=== PATIENT | male | born 1970 | race Caucasian/White ===

== ENCOUNTER 2016-11-12 07:24 | Day surgery (SDC) | payer OTHER ==
[2016-11-10 14:22] VITALS: BMI 32.1
[~2016-11-12 07:24] MED LIST: LACTATED RINGERS 1,000 ML IV SCH
[2016-11-12 07:46] VITALS: TEMP 98.1
[2016-11-12] MEDS ORDERED: TRIAMCINOLONE ACETONIDE 40 MG/ML 1 ML VIAL ONE (07:50)
[2016-11-12 08:08] LABS: Glucose,Whole Blood 162 mg/dL (75-99)
--- NOTE | 2016-11-12 08:13 | P.PCN ---
Date of Procedure: 11/12/16 Procedure(s) Performed: PREOPERATIVE DIAGNOSIS: 1- Lumbar Degenerative Disc Diseases. POSTOPERATIVE DIAGNOSIS: 1-Lumber Degenerative Disc Diseases. PROCEDURE 1. Lumbar epidural steroid injection under fluoroscopic guidance at the L5-S1 level. ANESTHESIA: Local with 1% lidocaine 3 ml . no Iv sedation EBL: Minimal PROCEDURE INDICATION: The patient with low back pain and radiculitis symptoms unresponsive to conservative treatment. Fluoroscopy was used to optimize visualization of the needle placement and to maximize safety. PROCEDURE DESCRIPTION / TECHNIQUE: The patient was seen and identified in the preoperative area. Risks, benefits , complications including but not limited to infections ,bleeding ,allergic reaction to the medications ,nerve damage and not complete pain releife , and alternatives were discussed with the patient. The patient agreed to proceed with the procedure and signed the consent ,, and vital signs were stable. Patient was taken to the OR and time out was completed. The patient was placed in the prone position on procedure table and a pillow was placed under the abdomen to reduce lumbar lordosis. The lumbosacral area was prepped and draped in the usual sterile fashion.ere closely monitored during the procedure. Vital signs was monitered during the entire procedure. Using anterior-posterior fluoroscopy, the L5-S1 interlaminar space was identified and the skin over this site was marked and then infiltrated with 1% lidocaine subcutaneously. Subsequently, a 20-gauge Tuohy epidural needle was inserted and advanced toward the epidural space using the Loss of resistance technique and guided by AP and lateral fluoroscopy. The correct needle position in the epidural space was verified with fluoroscopy, Omnipaque was not injected because patient had an ALLERGY to IVP dye, after negative aspiration for blood and CSF and in the absence of paresthesias. Again after negative aspiration, a 4 ml mixture containing 80 mg of Kenalog and 2 ml of preservative free Normal Saline, . Needle was withdrawn intact, skin was cleansed, and bandages were applied. COMPLICATIONS: None DISPOSITION / PLANS: The patient was placed in a supine position and transferred to the recovery area in a stable condition for observation. There was no evidence of lower extremity motor or sensory deficit after the procedure. Patient was discharged from the recovery room after meeting discharge criteria. Home discharge instructions were given to the patient by the staff. The patient was reexamined prior to discharge. The patient will schedule a follow up in the clinic in 2-4 weeks.
[2016-11-12 08:18] VITALS: RESP 16
[2016-11-12 08:29] VITALS: PULSE 74
--- NOTE | 2016-11-12 08:33 | FL ---
EXAMINATION TYPE: FL guided pain mgmt statistic DATE OF EXAM: 11/12/2016 8:15 AM FLUOROSCOPY Fluoroscopy time of 2 seconds was used during lumbar epidural injection. 1 image/s document/s the pr jerson.
[2016-11-12 08:34] VITALS: BP 138/89
[2016-11-12 08:43] LABS: Glucose,Whole Blood 137 mg/dL (75-99)
== END 2016-11-12 08:46 | disposition home or self-care (01) ==
LOC: ORPAIN 07:24
PROVIDERS: ATTEND Specialist
DX: M51.16 Intervertebral disc disorders with radiculopathy, lumbar region (principal); Z88.5 Allergy status to narcotic agent; Z88.8 Allergy status to other drugs, medicaments and biological substances; Z91.041 Radiographic dye allergy status
CPT/HCPCS: 62323; J3301

== ENCOUNTER → 2016-12-09 | Outpatient (CLI) | payer OTHER ==
[2016-12-09 14:15] VITALS: BP 138/93; PULSE 99; RESP 18
--- NOTE | 2016-12-09 14:46 | P.PN ---
Progress Note - Text This is a 46-year-old male with lower back pain with radiation to the left lower extremity down to the left foot with numbness and tingling in the left thigh laterally. The patient had a new MRI of the lumbar spine which showed only minor degenerative changes. The patient had previous surgery on the cervical spine with anterior cervical fusion however he does not have significant pain in that area at this point. The patient may need to have an EMG on the lower extremities to try to explain this pain in his left lower extremity, however and since we cannot find the source of his pain coming from his lumbar spine due to lack of significant findings on the last MRI of the lumbar spine I will have to go down his [place] to 3 pills a day as needed for pain and if the EMG results abnormal then we'll going to wean him off [place] gradually. I'll give him today prescription to have EMG done on the lower extremities to rule out meralgia paresthetica or lumbar radiculopathy. We will continue with his Zanaflex and Motrin. He is going to have the third lumbar epidural steroid injection done in a few weeks .We will see him in 2 months.
== END | disposition home or self-care (01) ==
LOC: PNWHC3 13:21
PROVIDERS: ATTEND Anesthesiology
DX: M54.5 Low back pain (principal); Z98.1 Arthrodesis status; Z79.899 Other long term (current) drug therapy
CPT/HCPCS: 99211

== ENCOUNTER 2016-12-31 09:21 | Day surgery (SDC) | payer OTHER ==
[2016-12-31 09:38] VITALS: TEMP 98.1
[2016-12-31 09:42] LABS: Glucose,Whole Blood 120 mg/dL (75-99)
[2016-12-31] MEDS ORDERED: IOHEXOL 180 MG/ML 1 ML ML ONE (10:13)
[2016-12-31] MEDS ORDERED: TRIAMCINOLONE ACETONIDE 40 MG/ML 1 ML VIAL ONE (10:13)
--- NOTE | 2016-12-31 10:42 | FL ---
EXAMINATION TYPE: FL guided pain mgmt statistic DATE OF EXAM: 12/31/2016 10:34 AM HISTORY: Pain 13 sec fl time. lumbar epidural. 2 images scanned.
[2016-12-31 10:44] VITALS: BP 143/94; PULSE 75; RESP 18
--- NOTE | 2016-12-31 10:59 | P.PCN ---
Date of Procedure: 12/31/16 Surgeon: Taurus Zhu Pathology: none sent Condition: stable Disposition: PACU Description of Procedure: PREOPERATIVE DIAGNOSIS: 1-Lumbar radiculitis. POSTOPERATIVE DIAGNOSIS: 1-Lumbar radiculitis. PROCEDURE 1. Lumbar epidural steroid injection under fluoroscopic guidance at the L5-S1 level. ANESTHESIA: Local with 1% lidocaine; IV sedation with Versed/fentanyl. EBL: Minimal PROCEDURE INDICATION: The patient with low back pain and radiculitis symptoms unresponsive to conservative treatment. Fluoroscopy was used to optimize visualization of the needle placement and to maximize safety. No use of blood thinners. PROCEDURE DESCRIPTION / TECHNIQUE: The patient was seen and identified in the preoperative area. Risks, benefits, complications, and alternatives were discussed with the patient, including but not limited to bleeding, infection, nerve damage, allergic reactions to medications, and incomplete pain relief. The patient agreed to proceed with the procedure and signed the consent after all questions were answered. IV was started, and vital signs were stable. Patient was taken to the OR and time out was completed to confirm patient position, procedure, laterality of pain, and allergies. The patient was placed in the prone position on procedure table and a pillow was placed under the abdomen to reduce lumbar lordosis. The lumbosacral area was prepped and draped in the usual sterile fashion. Critical pause was taken. Vital signs were closely monitored during the procedure. Conscious sedation was used during the procedure to decrease patients anxiety. Using anterior-posterior fluoroscopy, the L5-S1 interlaminar space was identified and the skin over this site was marked and then infiltrated with 1% lidocaine subcutaneously. Subsequently, a 20-gauge Tuohy epidural needle was inserted and advanced toward the epidural space using the Loss of resistance technique and guided by AP and lateral fluoroscopy. After CHACORTA and after negative aspiration for blood and CSF and in the absence of paresthesias, a 9 ml mixture containing 80 mg of Kenalog and 5 ml of preservative free Normal Saline, and 2 ml of preservative free lidocaine 1% solution was injected and a washout of epidurogram was seen. Needle was withdrawn intact, skin was cleansed , and bandages were applied. No epidurogram was performed as the patient has an allergy to iodine. COMPLICATIONS: None COMMENTS: DISPOSITION / PLANS: The patient was placed in a supine position and transferred to the recovery area in a stable condition for observation. There was no evidence of lower extremity motor or sensory deficit after the procedure. Patient was discharged from the recovery room after meeting discharge criteria. Home discharge instructions were given to the patient by the staff. The patient was reexamined prior to discharge and there were no issues. The patient will schedule a follow up in the clinic in 2-4 weeks.
== END 2016-12-31 10:59 | disposition home or self-care (01) ==
LOC: ORPAIN 09:21
PROVIDERS: ATTEND Anesthesiology
DX: M54.16 Radiculopathy, lumbar region (principal); Z91.09 Other allergy status, other than to drugs and biological substances
CPT/HCPCS: 62323; J3301; Q9965

== ENCOUNTER → 2017-02-03 | Outpatient (CLI) | payer OTHER ==
[2017-02-03 14:21] VITALS: BP 135/86; PULSE 94; RESP 16; TEMP 98.3
--- NOTE | 2017-02-03 14:59 | P.PN ---
Progress Note - Text Patient returns for followup for chronic back pain with radiation to LLE. Patient recently underwent LESI x 3, which provided one month's relief. Patient continues on Chelsea, Lyrica, Motrin, and Zanaflex medications for pain with good relief. Patient denies adverse drug effects from medications or from procedure. Today, pt denies new-onset weakness, bowel/bladder incontinence, or any other signs or symptoms of cauda equina syndrome. There are no signs of acute intoxication, and no indications of medication diversion or overuse. In addition to above, 13-point review of systems is also negative for chest pain , shortness of breath, changes in vision, changes in hearing, new onset weakness , abdominal pain, diarrhea, extreme fatigue, malaise, fever, skin changes, homicidal or suicidal ideation. Of note, patient is beginning to experience occasional bouts of bowel/bladder urgency but has not had any episodes of incontinence. He denied fever/chills/ changes in bowel habits/severe pain at injection site/weakness after LESI performed. Vital Signs: Reviewed in EMR Gen: WDWN, AAOx3, NAD HEENT: NCAT, EOMI, hearing grossly normal Pulm: resp unlabored Abd: soft, NT, ND Neck: supple, trachea midline ROM in flexion lumbar spine: reduced ROM in extension lumbar spine: reduced Lumbar paravertebral tenderness: + Facet loading: + bilateral, L > R SI joint tenderness: neg bilateral Colin's test: neg bilateral Straight leg raise: neg Lower extremity: decreased strength LLE 4/5, 5/5 RLE Neuro: CN II-XII grossly intact, muscle strength lower extremities PRESERVED Imaging: Reviewed in EMR Assessment: 1. lumbar spinal stenosis 2. lumbar radiculopathy 3. chronic pain syndrome Plan: 1. Explanation: Opioid and psychological risk scores were reviewed. Diagnoses , prognoses, and multiple treatment options including but not limited to physical therapy, interventional therapies, adjuvant medical therapies, narcotic medication therapies, and surgery were discussed with the patient and all questions were answered to the patient's satisfaction. 2. Opioid agreement: Patient has previously signed narcotic agreement, and was orally counseled to not overuse, abuse, divert, or cell medications, and to take them as prescribed by only 1 healthcare provider. The patient was also counseled to store opioid medications in a safe and preferably locked location. Patient was also counseled against driving while using narcotic medications and also to not use alcohol or any illicit or recreational drugs. The patient verbalized understanding that lack of compliance with any of the above and likely result in failure to renew narcotic prescriptions, possible discharge from the clinic, and possible legal ramifications thereafter if indicated. 3. Counseling: The patient was counseled extensively on SMOKING CESSATION, BODY MASS INDEX, EXERCISE. Specifically, the patient was instructed regarding the importance of smoking cessation, obesity, and exercise in the context of both chronic pain and overall health. 4. Procedures: none for now 5. Consultations: Neurology for eval and treat worsening incontinence and EMG lower extremities 6. Investigations: none 7. Medications: Chelsea #120, Lyrica, Motrin and Zanaflex x 2 months 8. Disposition: f/u for re-eval in 8 weeks. Patient again instructed to go to ER if he loses control of bowel/bladder or has fever, chills, worsening weakness , or loss of sensation in his groin area. I am concerned that, despite MRI lumbar spine without cauda equina problems, Antonio's worsening incontinence may be related to his spine and could potentially result in weakness in his lower extremities. I impressed upon him the importance of evaluation and treatment for this even if he is having pain in the meantime. PQRS measures: 1-Patient's medications are documented in the chart. 2-Tobacco use is positive, refused counseling 3-Patient has not had a pneumococcal vaccine. 4-Advanced care planning discussed, patient unable to give. 5-Opioid contract signed with the patient. 6-Pain positive, follow-up visit or procedure scheduled 7-Patient's blood pressure measured and documented, and patient will follow up with the primary care due to hypertension. 8-Patient's weight was measured, and body mass index ABOVE the normal limits, and counseling was done. Patient instructed to follow up with PCP. 9-Patient WAS NOT identified as an unhealthy alcohol user.
== END | disposition home or self-care (01) ==
LOC: PNWHC3 13:56
PROVIDERS: ATTEND Anesthesiology
DX: M48.06 Spinal stenosis, lumbar region (principal); G89.4 Chronic pain syndrome
CPT/HCPCS: 99211

== ENCOUNTER → 2017-03-31 | Outpatient (CLI) | payer OTHER ==
[2017-03-31 13:51] VITALS: BP 136/84; PULSE 80; RESP 16; TEMP 98.6
--- NOTE | 2017-03-31 21:24 | P.PN ---
Subjective This is follow-up visit for this patient with a history of severe and chronic low back pain secondary to lumbar degenerative disc disease, lumbar herniated disc disease y, we did interventional pain management injection, lumbar epidural steroid injections he continued to have severe low back pain, and he had also severe neck pain diagnosed with failed back surgery syndrome and cervical area, and cervical herniated disc disease, and cervical spondylosis, , last visit patient was complaining of increased urgency, and the bowel movement He was referred to a neurologist consultation and also to have EMG, patient reported that he has done EMG for the lower extremity and he is going to have the EMG for the upper extremity next week, I don't have any report. yet , patient denies any weakness in the upper or lower extremity he continued to ambulate without difficulty, and is currently on pain medications 1-Zanaflex 4 mg 3 times a day 2-Lyrica 75 mg 3 times a day 3-Motrin 800 mg 3 times a day. 4-Riviera 10/325 every 6 hours Patient denies any side effects of the medication, denies excessive drowsiness or sleepiness, denies suicidal ideation, and reports that the current pain medication is NOT helping To control the pain and improve activity of daily living . Patient denies any motor or sensory deficit, , patient denies any fever or night sweats and patient here for follow-up visit and medication refill Objective - Vital Signs Vital signs: Vital Signs Temp 98.6 F 03/31/17 13:38 Pulse 80 03/31/17 13:38 Resp 16 03/31/17 13:38 BP 136/84 03/31/17 13:38 Pulse Ox 97 03/31/17 13:38 Intake & Output 03/31/17 03/31/17 04/01/17 06:59 18:59 06:59 Weight 81.647 kg - Exam Physical Examinations : 1-Constitutiona : Cooperative , not in acute distress . 2-HEENT : nech ; supple , no Lymphadenopathy , normal thyroid size . eyes : no ptosis , no icterus, no photophobia . ENT : normal of hearing , normal oropharynx , no Thrush . 3- Respiratory : Chest clear to auscultations Bilaterally , no wheezing , no Rhonchi . 4- Cardiovascular : regular rate and rhythem , S1 , S2 , no S3 , no S4. 5- Gastrointestinal : abdomen soft no tenderness , bowel sounds positive all four quadrents , no organomegally . 6- Genitourinary : Defferred . 7- neurologic : Cranial nerve II to XII intact , no focal neurological deffecit . 8-psychatric : alert , oriented X 3 , appropriate affect , intact judgment and insight . 9-Lymphatic : no Lymphadenopathy . 10- musculoskeltal : cervical spine = motor stregnth in the deltoid and biceps, motor stregnth biceps and the wrist extensors (C6) . motor stregnth in the triceps muscle . deep tendon reflexes normal at the biceps , l normal at Brachioradialis normal at the triceps , positive cervical facet loading test . , exams of the Lumber spine = normal moter stegnth lower extremities ,thigh and legs .5/5 deep tendon reflexes : normal Knee Jerk , normal ankle Jerk . positive lumber facet Loading Test strait leg raising test positive at 30 degree , RT ,LT , Fabere test positive RT and positive LT . Assessment and Plan Plan: Assessment and plan = - Chronic low back pain secondary to lumbar herniated disc disease , lumbar degenerative disc disease , -Chronic neck pain secondary to cervical herniated disc disease , cervical spondylosis with cervical facet arthropathy without myelopathy . He'll back surgery syndrome and cervical area -chronic and current use of high-risk medication (Opioids). -Patient denies any side effect of the medication, and the current medication helped the patient to control the pain and improve activity of daily living, the visual The patient was counseled about risk of opioid use, psychological risk associated with opioids discussed with the patient, body mass index and exercise. Patient signed the narcotic agreement , and was orally counseled not to overuse , abuse , divert, or sell medications ,and take them as prescribed only , and the patient was counseled against driving and while you are using the narcotic medication also not to use alcohol or any illicit drugs and the patient verbalized understanding that lack of compliance and could result in failure to renew narcotics prescriptions and possible discharge from the clinic - diagnoses, prognosis, and treatment options including but not limited to physical therapy, surgical interventions, interventional therapies and medication management including narcotics and adjuvant medication were discussed with the patient and all questions answered to the patient's satisfaction. -medication refile =1-Zanaflex 4 mg 3 times a day dispense 90 with 1 refills 2- Lyrica 75 mg dispense 90 with 1 refills 3-03 800 mg 3 times a day dispense 90 with 1 refill 4-Riviera 10/325 every 6 hours dispensed 120 with one refill -procedure= patient already referred to have EMG for theupper and lower extremity we don't have report. -Show was referred for neurology consultation also Time with Patient: Less than 30
== END | disposition home or self-care (01) ==
LOC: PNWHC3 13:15
PROVIDERS: ATTEND Specialist
DX: M51.26 Other intervertebral disc displacement, lumbar region (principal); M51.36 Other intervertebral disc degeneration, lumbar region; M47.812 Spondylosis without myelopathy or radiculopathy, cervical region; M46.92 Unspecified inflammatory spondylopathy, cervical region; G89.29 Other chronic pain; Z79.891 Long term (current) use of opiate analgesic; Z79.899 Other long term (current) drug therapy; Z79.1 Long term (current) use of non-steroidal anti-inflammatories (NSAID)
CPT/HCPCS: 99211

== ENCOUNTER → 2017-05-26 | Outpatient (CLI) | payer OTHER ==
[2017-05-26 13:18] VITALS: BP 123/85; PULSE 97; RESP 16; TEMP 98
--- NOTE | 2017-05-26 14:06 | P.PN ---
Progress Note - Text Patient returns for followup for chronic back pain with radiation to LLE > RLE with pain and numbness in LUE also. Patient recently underwent EMG; results below. Patient continues on Western, Lyrica, Motrin, and Zanaflex medications for pain with good relief. Patient denies adverse drug effects from medications or from procedure. Today, pt denies new-onset weakness, bowel/ bladder incontinence, or any other signs or symptoms of cauda equina syndrome. There are no signs of acute intoxication, and no indications of medication diversion or overuse. In addition to above, 13-point review of systems is also negative for chest pain , shortness of breath, changes in vision, changes in hearing, new onset weakness , abdominal pain, diarrhea, extreme fatigue, malaise, fever, skin changes, homicidal or suicidal ideation. Of note, patient is beginning to experience occasional bouts of bowel/bladder urgency but has not had any episodes of incontinence. He denied fever/chills/ changes in bowel habits/severe pain at injection site/weakness after LESI performed. Vital Signs: Reviewed in EMR Gen: WDWN, AAOx3, NAD HEENT: NCAT, EOMI, hearing grossly normal Pulm: resp unlabored Abd: soft, NT, ND Neck: supple, trachea midline ROM in flexion lumbar spine: reduced ROM in extension lumbar spine: reduced Lumbar paravertebral tenderness: + Facet loading: + bilateral, L > R Straight leg raise: neg Neuro: CN II-XII grossly intact EMG: EMG of the lower extremities performed by Dr. 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 EMG of the upper extremities demonstrates electric diagnostic evidence of mild bilateral median nerve compressive mononeuropathy at the wrist i.e. carpal tunnel syndrome. There is also electrodiagnostic evidence of bilateral chronic C6-C7 neurogenic changes. Assessment: 1. lumbar spinal stenosis 2. lumbar radiculopathy 3. chronic pain syndrome 4. cervical PLPS Plan: 1. Explanation: Opioid and psychological risk scores were reviewed. Diagnoses , prognoses, and multiple treatment options including but not limited to physical therapy, interventional therapies, adjuvant medical therapies, narcotic medication therapies, and surgery were discussed with the patient and all questions were answered to the patient's satisfaction. 2. Opioid agreement: Patient has previously signed narcotic agreement, and was orally counseled to not overuse, abuse, divert, or cell medications, and to take them as prescribed by only 1 healthcare provider. The patient was also counseled to store opioid medications in a safe and preferably locked location. Patient was also counseled against driving while using narcotic medications and also to not use alcohol or any illicit or recreational drugs. The patient verbalized understanding that lack of compliance with any of the above and likely result in failure to renew narcotic prescriptions, possible discharge from the clinic, and possible legal ramifications thereafter if indicated. 3. Counseling: The patient was counseled extensively on SMOKING CESSATION, BODY MASS INDEX, EXERCISE. Specifically, the patient was instructed regarding the importance of smoking cessation, obesity, and exercise in the context of both chronic pain and overall health. 4. Procedures: none for now 5. Consultations: none 6. Investigations: none 7. Medications: Western #120, Lyrica, Motrin and Zanaflex x 2 months 8. Disposition: f/u for re-eval in 8 weeks. Patient states incontinence has improved but he is having new and worsening symptoms of pain/numbness/tingling in his upper extremities. PQRS measures: 1-Patient's medications are documented in the chart. 2-Tobacco use is positive, refused counseling 3-Patient has not had a pneumococcal vaccine. 4-Advanced care planning discussed, patient unable to give. 5-Opioid contract signed with the patient. 6-Pain positive, follow-up visit or procedure scheduled 7-Patient's blood pressure measured and documented, and patient will follow up with the primary care due to hypertension. 8-Patient's weight was measured, and body mass index ABOVE the normal limits, and counseling was done. Patient instructed to follow up with PCP. 9-Patient WAS NOT identified as an unhealthy alcohol user.
== END ==
LOC: PNWHC3 13:05
PROVIDERS: ATTEND Anesthesiology
DX: M48.06 Spinal stenosis, lumbar region (principal); Z79.891 Long term (current) use of opiate analgesic; Z79.899 Other long term (current) drug therapy
CPT/HCPCS: 99211

== ENCOUNTER → 2017-06-24 | Outpatient (CLI) | payer OTHER ==
--- NOTE | 2017-06-24 14:33 | NM ---
EXAMINATION TYPE: NM bone 3 phase DATE OF EXAM: 06/24/2017 COMPARISON: NONE HISTORY: M79.604 kimmy ankle piain post trauma Triple phase bone scintigraphy was performed following the injection of25.8 mCi Tc 99m MDP. Immediat e images and 3 hours post injection images acquired. FINDINGS: On all 3 phases of the study there is increased radiotracer accumulation in the region of the right c uboid. I cannot exclude traumatic injury to this structure. Radiographic correlation recommended. Oth erwise there is degenerative uptake about the ankles and mid feet. IMPRESSION: Correlate for possible right-sided cuboid fracture. Radiographic correlation advised.
== END | disposition home or self-care (01) ==
LOC: RADNMMAIN 09:56
PROVIDERS: ATTEND Internal Medicine Infectious Disease
DX: M25.572 Pain in left ankle and joints of left foot (principal); M25.571 Pain in right ankle and joints of right foot; G89.29 Other chronic pain
CPT/HCPCS: 78315; A9503

== ENCOUNTER → 2017-07-21 | Outpatient (CLI) | payer OTHER ==
[2017-07-21 13:33] VITALS: BP 136/92; PULSE 76; RESP 18; TEMP 97.6
--- NOTE | 2017-07-21 13:52 | P.PN ---
Progress Note - Text Patient returns for followup for chronic back pain with radiation to LLE > RLE with pain and numbness in bilateral upper extremities. Patient continues on Pinola, Lyrica, Motrin, and Zanaflex medications for pain with good relief. Patient denies adverse drug effects from medications or from procedure. Today, pt denies new-onset weakness, bowel/bladder incontinence, or any other signs or symptoms of cauda equina syndrome. There are no signs of acute intoxication, and no indications of medication diversion or overuse. In addition to above, 13-point review of systems is also negative for chest pain , shortness of breath, changes in vision, changes in hearing, new onset weakness , abdominal pain, diarrhea, extreme fatigue, malaise, fever, skin changes, homicidal or suicidal ideation. Of note, patient is beginning to experience occasional bouts of bowel/bladder urgency but has not had any recent episodes of incontinence. He denied fever/ chills/changes in bowel habits/severe pain at injection site/weakness after LESI performed. Vital Signs: Reviewed in EMR Gen: WDWN, AAOx3, NAD HEENT: NCAT, EOMI, hearing grossly normal Pulm: resp unlabored Abd: soft, NT, ND Neck: supple, trachea midline; + cervical facet tenderness bilateral, + Spurling's LUE Neuro: CN II-XII grossly intact Assessment: 1. lumbar spinal stenosis 2. lumbar radiculopathy 3. chronic pain syndrome 4. cervical PLPS 5. cervical radic (EMG-proven) Plan: 1. Explanation: Opioid and psychological risk scores were reviewed. Diagnoses , prognoses, and multiple treatment options including but not limited to physical therapy, interventional therapies, adjuvant medical therapies, narcotic medication therapies, and surgery were discussed with the patient and all questions were answered to the patient's satisfaction. 2. Opioid agreement: Patient has previously signed narcotic agreement, and was orally counseled to not overuse, abuse, divert, or cell medications, and to take them as prescribed by only 1 healthcare provider. The patient was also counseled to store opioid medications in a safe and preferably locked location. Patient was also counseled against driving while using narcotic medications and also to not use alcohol or any illicit or recreational drugs. The patient verbalized understanding that lack of compliance with any of the above and likely result in failure to renew narcotic prescriptions, possible discharge from the clinic, and possible legal ramifications thereafter if indicated. 3. Counseling: The patient was counseled extensively on SMOKING CESSATION, BODY MASS INDEX, EXERCISE. Specifically, the patient was instructed regarding the importance of smoking cessation, obesity, and exercise in the context of both chronic pain and overall health. 4. Procedures: none for now 5. Consultations: none 6. Investigations: UDS today 7. Medications: Pinola 10/325 #120 with one refill, Lyrica, Motrin and Zanaflex with two refills 8. Disposition: f/u for re-eval in 8 weeks. Patient has already seen Dr. Schneider who has told him he is not a candidate for neck surgery. He states that incontinence has improved but he is having new and worsening symptoms of pain/ numbness/tingling in his upper extremities. PQRS measures: 1-Patient's medications are documented in the chart. 2-Tobacco use is positive, refused counseling 3-Patient has not had a pneumococcal vaccine. 4-Advanced care planning discussed, patient unable to give. 5-Opioid contract signed with the patient. 6-Pain positive, follow-up visit or procedure scheduled 7-Patient's blood pressure measured and documented, and patient will follow up with the primary care due to hypertension. 8-Patient's weight was measured, and body mass index ABOVE the normal limits, and counseling was done. Patient instructed to follow up with PCP. 9-Patient WAS NOT identified as an unhealthy alcohol user.
== END | disposition home or self-care (01) ==
LOC: PNWHC3 13:16
PROVIDERS: ATTEND Anesthesiology
DX: M48.06 Spinal stenosis, lumbar region (principal); M54.16 Radiculopathy, lumbar region; G89.4 Chronic pain syndrome; G97.1 Other reaction to spinal and lumbar puncture
CPT/HCPCS: 80307; G0480 ×3; G0463; 80346; 80356; 80364; 99211

== ENCOUNTER → 2017-09-15 | Outpatient (CLI) | payer OTHER ==
[2017-09-15 12:35] VITALS: BP 153/100; PULSE 104; RESP 16
--- NOTE | 2017-09-15 12:59 | P.PN ---
Subjective Progress Note Date: 09/15/17 follow visit for this 46 years old male with a chronic history of severe neck pain, radiation to the upper extremity, and severe low back pain with radiation to the left lower extremity, being diagnosed with cervical radiculopathy and lumbar radiculopathy and cervical spondylosis, patient had interventional pain management procedures in the past and he had no benefit from it, and he sold [email or web address] and Dr. Schneider , and he did not recommend any surgical interventions, the patient continued to have severe pain which is increased with any activity, he denies any focal neurologic deficits he denies any fever or night sweats and is no change in bowel movement or urination, he denies any side effects from the medication, Objective - Vital Signs Vital signs: Vital Signs Temp Pulse 104 H 09/15/17 12:24 Resp 16 09/15/17 12:24 BP 153/100 09/15/17 12:24 Pulse Ox 98 09/15/17 12:24 Intake & Output 09/14/17 09/15/17 09/15/17 18:59 06:59 18:59 Weight 87.543 kg - Exam Physical Examinations : 1-Constitutiona : Cooperative , not in acute distress . 2-HEENT : nech ; supple , no Lymphadenopathy , normal thyroid size . eyes : no ptosis , no icterus, no photophobia . ENT : normal of hearing , normal oropharynx , no Thrush . 3- Respiratory : Chest clear to auscultations Bilaterally , no wheezing , no Rhonchi . 4- Cardiovascular : regular rate and rhythem , S1 , S2 , no S3 , no S4. 5- Gastrointestinal : abdomen soft no tenderness , bowel sounds positive all four quadrents , no organomegally . 6- Genitourinary : Defferred . 7- neurologic : Cranial nerve II to XII intact , no focal neurological deffecit . 8-psychatric : alert , oriented X 3 , appropriate affect , intact judgment and insight . 9-Lymphatic : no Lymphadenopathy . 10- musculoskeltal : cervical spine = motor stregnth in the deltoid and biceps, motor stregnth biceps and the wrist extensors (C6) . motor stregnth in the triceps muscle . deep tendon reflexes normal at the biceps , l normal at Brachioradialis normal at the triceps positive cervical facet loading test . , Lumber spine = normal moter stegnth lower extremities ,thigh and legs .5/5 deep tendon reflexes : normal Knee Jerk , normal ankle Jerk . positive lumber facet Loading Test strait leg raising test positive at 60 degree , RT ,LT , Fabere test positive RT and positive LT . Assessment and Plan Plan: Assessment and plan= Lumbar radiculopathy , lumbar spondylosis with lumbar facet arthropathy , Cervical radiculopathy, cervical spondylosis chronic and current use of high-risk medication (opioids) Patient denies any side effects of the current pain medication and the current treatment/medication ML and the patient to do activity of daily living , Diagnoses, prognosis, treatment options, including but not limited to physical therapy, medication management, interventional therapies, and surgery, were discussed with the patient All the questions answered Patient signed the narcotic agreement, and he was orally counseled, not to overuse, not to abuse, not to Divert , not tp sell pain medication, and to take it as prescribed only, Patient was counseled not to drive or operate heavy equipment while using narcotic medication, and advised not to use alcohol or any Illicit drugs while using the narcotis, the patient's verbalized understanding that lack of compliance with any of the above instructions and will likely to cause discharge from the pain service, not to renew his narcotic prescriptions Medication managements= patient will be given prescription refills for 1-Le[place] 10/325 every 6 hours dispense 120 with one refill 2-lyrica 75 mg 3 times a day dispense 90 with 1 refile 3-Zanaflex 4 mg 3 times a day dispense 90 with 1 refill. 4-Motrin 800 mg 3 times a day dispense 90 with 1 refill Interventional pain management= none Refferal =none Follow-up= 2 months UDS reviewed , and it was appropriate ,
== END ==
LOC: PNWHC3 12:14
PROVIDERS: ATTEND Specialist
DX: M47.22 Other spondylosis with radiculopathy, cervical region (principal); M47.26 Other spondylosis with radiculopathy, lumbar region; M46.86 Other specified inflammatory spondylopathies, lumbar region; Z79.899 Other long term (current) drug therapy; Z79.891 Long term (current) use of opiate analgesic
CPT/HCPCS: 99211

== ENCOUNTER → 2017-11-10 | Outpatient (CLI) | payer OTHER ==
[2017-11-10 12:30] VITALS: BP 139/93; PULSE 86; RESP 16
--- NOTE | 2017-11-10 12:48 | P.PN ---
Subjective Progress Note Date: 11/10/17 This is follow-up visit for this patient with a history of severe and chronic low back pain secondary to lumbar radiculopathy ,and , lumbar spondylosis with facet arthropathy, he had severe neck pain ,he is diagnosed with cervical radiculopathy and cervical spondylosis we did interventional pain management injection,, and all the interventional pain management failed to control his neck pain or low back pain , patient currently on 1-[place] 10/325 every 6 hours 2-Motrin 800 mg every 8 hours 3-Zanaflex 4 mg every 8 hours. 4-Lyrica 75 mg 3 times a day And he uses Klonopin 0.5 mg daily and Lexapro 20 mg daily and Cymbalta 60 mg daily for anxiety and depression, a prescription refill from his primary care Patient denies any side effects of the medication, denies excessive drowsiness or sleepiness, denies suicidal ideation, and reports that the current pain medication is helping To control the pain and improve activity of daily living . Patient denies any motor or sensory deficit, denies change in bowel movement or urination, patient denies any fever or night sweats and patient here for follow-up visit and medication refill , patient reported that he is using nicotine patch ,to stop Smoking , and he is going to school for computer science Objective - Exam Physical Examinations : 1-Constitutiona : Cooperative , not in acute distress . 2-HEENT : nech ; supple , no Lymphadenopathy , normal thyroid size . eyes : no ptosis , no icterus, no photophobia . ENT : normal of hearing , normal oropharynx , no Thrush . 3- Respiratory : Chest clear to auscultations Bilaterally , no wheezing , no Rhonchi . 4- Cardiovascular : regular rate and rhythem , S1 , S2 , no S3 , no S4. 5- Gastrointestinal : abdomen soft no tenderness , bowel sounds positive all four quadrents , no organomegally . 6- Genitourinary : Defferred . 7- neurologic : Cranial nerve II to XII intact , no focal neurological deffecit . 8-psychatric : alert , oriented X 3 , appropriate affect , intact judgment and insight . 9-Lymphatic : no Lymphadenopathy . 10- musculoskeltal : cervical spine = motor stregnth in the deltoid and biceps, motor stregnth biceps and the wrist extensors (C6) . motor stregnth in the triceps muscle . deep tendon reflexes normal at the biceps , normal at Brachioradialis , normal at the Triceps positive cervical facet loading test . , Lumber spine = normal moter stegnth lower extremities ,thigh and legs .03/05 Assessment and Plan Plan: Assessment and plan= chronic low back pain secondary to cervical radiculopathy , cervical spondylosis with lumbar facet arthropathy , chronic and current use of high-risk medication (opioids) Patient denies any side effects of the current pain medication and the current treatment/medication ML and the patient to do activity of daily living , Diagnoses, prognosis, treatment options, including but not limited to physical therapy, medication management, interventional therapies, and surgery, were discussed with the patient All the questions answered Patient signed the narcotic agreement, and he was orally counseled, not to overuse, not to abuse, not to Divert , not tp sell pain medication, and to take it as prescribed only, Patient was counseled not to drive or operate heavy equipment while using narcotic medication, and advised not to use alcohol or any Illicit drugs while using the narcotis, the patient's verbalized understanding that lack of compliance with any of the above instructions and will likely to cause discharge from the pain service, not to renew his narcotic prescriptions Medication managements= patient will be given prescription refills for 1-Lyrica 75 mg 3 times a day dispense 90 with 1 refill 2-Zanaflex 4 mg 3 times a day dispense 90 with 1 refill 3-[place] 10/325 every 6 hours dispense 120 with one refill. 4-Motrin 800 mg every 8 hours dispense 90 with 1 refill Interventional pain management=none Refferal =none Follow-up= 2 months , Time with Patient: Greater than 30
== END | disposition home or self-care (01) ==
LOC: PNWHC3 12:13
PROVIDERS: ATTEND Specialist
DX: G89.29 Other chronic pain (principal); M54.5 Low back pain; M47.22 Other spondylosis with radiculopathy, cervical region; M46.86 Other specified inflammatory spondylopathies, lumbar region; Z79.1 Long term (current) use of non-steroidal anti-inflammatories (NSAID); Z79.891 Long term (current) use of opiate analgesic; Z79.899 Other long term (current) drug therapy
CPT/HCPCS: 99211

== ENCOUNTER → 2017-11-23 | Outpatient (CLI) | payer OTHER ==
--- NOTE | 2017-11-24 07:13 | XR ---
EXAMINATION TYPE: XR abdomen 2V DATE OF EXAM: 11/23/2017 COMPARISON: NONE HISTORY: Left lower quadrant pain TECHNIQUE: One view abdominal series FINDINGS: The osseous structures are intact. The bowel gas pattern is nonspecific. No definite suspicious calc ifications hypertrophic change of the acetabulum. IMPRESSION: 1. Nonspecific abdomen.
== END | disposition home or self-care (01) ==
LOC: RADXRYALE 16:11
PROVIDERS: ATTEND Physician Assistant Medical
DX: K42.9 Umbilical hernia without obstruction or gangrene (principal); R10.32 Left lower quadrant pain
CPT/HCPCS: 74019

== ENCOUNTER → 2017-12-02 | Outpatient (CLI) | payer OTHER ==
--- NOTE | 2017-12-02 09:33 | US ---
EXAMINATION TYPE: US carotid duplex BILAT DATE OF EXAM: 12/02/2017 COMPARISON: NONE CLINICAL HISTORY: H53.2 Diplopia. Headaches, swelling of optic nerve, no h/o stroke, MRI to follow fo r possible brain tumor EXAM MEASUREMENTS: RIGHT: Peak Systolic Velocity (PSV) cm/sec ----- Right CCA: 94.4 ----- Right ICA: 89.7 ----- Right ECA: 86.4 ICA/CCA ratio: 1.0 RIGHT: End Diastole cm/sec ----- Right CCA: 27.5 ----- Right ICA: 43.5 ----- Right ECA: 12.8 LEFT: Peak Systolic Velocity (PSV) cm/sec ----- Left CCA: 116.9 ----- Left ICA: 90.5 ----- Left ECA: 103.6 ICA/CCA ratio: 0.8 LEFT: End Diastole cm/sec ----- Left CCA: 25.0 ----- Left ICA: 26.7 ----- Left ECA: 20.1 VERTEBRALS (direction of flow): Right Vertebral: Antegrade Left Vertebral: Antegrade Rhythm: Normal Mostly homogenous plaque throughout with very mild heterogeneous plaque noted at bilateral bulbs, no significant stenosis seen. IMPRESSION: Mild calcific atheromatous plaquing within the carotid bulbs. No hemodynamically signifi cant stenosis within either carotid arterial system.
--- NOTE | 2017-12-02 09:36 | MR ---
EXAMINATION TYPE: MR angio head wo con DATE OF EXAM: 12/02/2017 COMPARISON: NONE HISTORY: Diplopia, butterfield TECHNIQUE: Time of flight images focusing on the [place] of [place] were performed without contrast.. 2-D and 3-D postprocessing imaging is performed. FINDINGS: There is dominant left vertebral artery. Vertebral arteries are patent to the basilar junct ion. There is no significant focal stenosis or aneurysmal change in the posterior circulation. There are patent posterior communicating arteries identified bilaterally though the left side is noted smal ler in caliber. Images of the anterior circulation show no significant focal stenosis. Patent anterior communicating artery is not definitively visualized. IMPRESSION: No aneurysmal change at the level of the [place].
--- NOTE | 2017-12-02 10:24 | MR ---
EXAMINATION TYPE: MR brain wo con DATE OF EXAM: 12/02/2017 COMPARISON: NONE HISTORY: Diplopia, butterfield CONTRAST: Performed utilizing 0 mL intravenous Gadavist gadolinium contrast. TECHNIQUE: Multiplanar, multiecho imaging on a 3.0 Kamila magnet is performed through the brain. Stud y is performed within 24 hours of arrival to the hospital. The craniovertebral junction is normal. The pituitary is normal. Diffusion-weighted imaging is performed. No abnormal hyperintensity is present to suggest an acute i ntracranial infarct or acute ischemic change. No suspicious signal changes are evident within the brain. Orbits as visualized are normal. Paranasal sinuses mastoid air cells are unremarkable. Ventricles and sulci are mildly prominent for the patient age. IMPRESSIONS: 1. Mild atrophy
== END | disposition home or self-care (01) ==
LOC: RADUSMAIN 08:01
PROVIDERS: ATTEND Psychiatry & Neurology Neurology
DX: I65.23 Occlusion and stenosis of bilateral carotid arteries (principal); H53.2 Diplopia
CPT/HCPCS: 70544; 70551; 93880

== ENCOUNTER → 2018-01-05 | Outpatient (CLI) | payer OTHER ==
[2018-01-05 12:48] VITALS: BP 170/108; PULSE 79
--- NOTE | 2018-01-05 13:16 | P.PN ---
Subjective Progress Note Date: 01/05/18 This is follow-up visit for this patient with a history of severe and chronic low back pain secondary to lumbar degenerative disc diseases , chronic neck pain and diagnosed with cervical spondylosis with facet arthropathy, we have done lumbar epidural steroid injection which helped his low back pain, and we have done cervical diagnostic medial branch block and he has complications he is not willing to repeat the procedure Patients currently on [place] 10/325 every 6 hours, Lyrica 75 mg 3 times a day, Motrin 800 mg 3 times a day, Zanaflex 4 mg 3 times a day Patient denies any side effects of the medication, denies excessive drowsiness or sleepiness, denies suicidal ideation, and reports that the current pain medication is helping To control the pain and improve activity of daily living Patient denies any motor or sensory deficit , patient denies any fever or night sweats, denies any change in the bowel movements or urination Physical Examinations : 1-Constitutiona : Cooperative , not in acute distress . 2-HEENT : nech ; supple , no Lymphadenopathy , no Thyromegaly , normal thyroid size . eyes : no ptosis , no icterus, no photophobia . ENT : normal of hearing , normal oropharynx , no Thrush . 3- Respiratory : Chest clear to auscultations Bilaterally , no wheezing , no Rhonchi . 4- Cardiovascular : regular rate and rhythem , S1 , S2 , no S3 , no S4. 5- Gastrointestinal : abdomen soft no tenderness , bowel sounds positive all four quadrents , no organomegally . 6- Genitourinary : Defferred . 7- neurologic : Cranial nerve II to XII intact , no focal neurological deffecit . 8-psychatric : alert , oriented X 3 , appropriate affect , intact judgment and insight . 9-Lymphatic : no Lymphadenopathy . 10- musculoskeltal : exams of the cervical spine = motor strength normal bilateral upper extremities facet loading test cervical area positive. exams of the Lumber spine = motor strength lower extremities ,thigh and legs .5/5 deep tendon reflexes : normal Knee Jerk , normal ankle Jerk . lumber facet Loading Test positive strait leg raising test positive at 30 degree , RT ,LT , Fabere test positive RT and positive LT . Range of motion: Range of motion in flexion of the lumbar spine 30 degrees Range of motion range of motion of extension of the lumbar spine 10 Assessment and plan = Chronic low back pain secondary to lumbar degenerative disc disease , Chronic neck pain secondary to cervical spondylosis, failed back surgery syndrome cervical area chronic and current use of high-risk medication (Opioids). The patient was counseled about risk of opioid use, psychological risk associated with opioids and was orally counseled to not overuse , divert,or sell dictations to take medications as prescribed only , and to restore medication in safe location , and the patient counseled against driving while using narcotic medications, and also not to use alcohol or any illicit recreational drugs, the patient's verbalized understanding that the lack of compliance will result in failure to renew narcotic prescription and possible discharge from the clinic - diagnoses, prognosis, and treatment options including but not limited to physical therapy, surgical interventions, interventional therapies , and medication management including narcotics and adjuvant medication were discussed with the patient and all the questions answered E description refill for [place] 10/325 every 6 hours dispense 120 with one refill, Lyrica 75 mg 3 times a day dispense 90 with 1 refill, Motrin 800 mg 3 times a day dispense 90 with 1 refill Zanaflex 4 mg 3 times a day dispense 90 with 1 refill, he'll Elma in the pain clinic in 2 months Objective - Vital Signs Vital signs: Vital Signs Temp Pulse 79 01/05/18 12:40 Resp BP 170/108 01/05/18 12:40 Pulse Ox 98 01/05/18 12:40 Intake & Output 01/04/18 01/05/18 01/05/18 18:59 06:59 18:59 Weight 90.718 kg
== END | disposition home or self-care (01) ==
LOC: PNWHC3 12:13
PROVIDERS: ATTEND Specialist
DX: G89.29 Other chronic pain (principal); M51.36 Other intervertebral disc degeneration, lumbar region; M47.812 Spondylosis without myelopathy or radiculopathy, cervical region; M96.1 Postlaminectomy syndrome, not elsewhere classified; Z79.891 Long term (current) use of opiate analgesic; Z79.899 Other long term (current) drug therapy; Z79.1 Long term (current) use of non-steroidal anti-inflammatories (NSAID)
CPT/HCPCS: 99211

== ENCOUNTER → 2018-03-02 | Outpatient (CLI) | payer OTHER ==
[2018-03-02 13:35] VITALS: BP 118/78; PULSE 96; RESP 16
--- NOTE | 2018-03-02 14:08 | P.PAINPG ---
Subjective Progress Note Date: 03/02/18 Principal diagnosis: Cervical radiculopathy This is a very pleasant 47-year-old gentleman who has multiple pain problems stemming from a fall off of a roof approximately 25 years ago. He has had other accidents since then. He has chronic pain in his cervical spine as well as down his arms in his back and down his legs. He has numbness down his left leg. 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 Objective - Vital Signs Vital signs: Vital Signs Temp Pulse 96 03/02/18 13:24 Resp 16 03/02/18 13:24 BP 118/78 03/02/18 13:24 Pulse Ox 99 03/02/18 13:24 Intake & Output 03/01/18 03/02/18 03/02/18 18:59 06:59 18:59 Weight 86.183 kg - Exam Gen: WDWN, AAOx3, NAD HEENT: NCAT, EOMI, hearing grossly normal Pulm: resp unlabored Abd: soft, NT, ND Neck: supple, trachea midline ROM in flexion cervical spine: Decreased ROM in extension cervical spine: Decreased Cervical paravertebral tenderness: Positive Cervical Facet tenderness: Spurling's: Negative ROM in flexion lumbar spine: Decreased ROM in extension lumbar spine: Decreased Lumbar paravertebral tenderness: Positive Facet loading: Positive bilaterally SI joint tenderness: Negative bilaterally Colin's test: Negative Straight leg raise: Negative Neuro: CN II-XII grossly intact, muscle strength lower extremities PRESERVED. Assessment and Plan Assessment: Refill hydrocodone- maps checked with no unexpected activity Refill Lyrica refill ibuprofen Refill Zanaflex Follow-up in 2 months Time with Patient: Less than 30 PQRS Measure Charge Sheet PQRS Narrative: Smoking Status Smoker, status unknown Do You Want the Pneumonia No Vaccine AT THIS TIME? Narcotic Agreement Date Signed 03/04/16 Blood Pressure 118/78 Pain Intensity [Generalized] 7 Scale Used Numeric (1 - 10) Hx Alcohol Use (MH) No Home Medications: Ambulatory Orders Atorvastatin [Lipitor] 20 mg PO HS 04/16/14 Ranitidine HCl [Zantac] 150 mg PO DAILY PRN 04/16/14 metFORMIN HCL [Glucophage] 1,000 mg PO BID 04/16/14 Levothyroxine Sodium [Synthroid] 75 mcg PO DAILY 05/15/14 Ergocalciferol [Vitamin D2 (DRISDOL)] 50,000 unit PO Q30D 07/09/14 Albuterol Sulfate [Proair Hfa] 2 puff INHALATION BID PRN 12/31/14 DULoxetine HCL [Cymbalta] 60 mg PO DAILY 12/31/14 Tamsulosin HCl [Flomax] 0.4 mg PO HS 12/31/14 clonazePAM [KlonoPIN] 0.5 mg PO DAILY PRN 12/31/14 rOPINIRole HCL [Requip] 1 mg PO HS 06/05/15 Escitalopram [Lexapro] 20 mg PO DAILY 07/17/15 Metaproterenol Sulfate 25 mg PO DAILY 09/05/15 Lurasidone [Latuda] 60 mg PO HS 11/13/15 Cetirizine HCl [Zyrtec] 5 mg PO DAILY PRN 09/18/16 Nicotine 21Mg/24Hr Patch [Habitrol] 1 patch TOPICAL DIRECTED 11/10/17 tiZANidine [Zanaflex] 4 mg PO TID PRN #90 tab 11/10/17 Hydrocodone/Acetaminophen [[place] 10-325] 10 mg PO Q6HR PRN #120 tablet 01/05/18 Losartan [Cozaar] 25 mg PO DAILY 01/05/18 HYDROcodone/APAP 10-325MG [[place] 10-325] 1 tab PO Q6H PRN #120 tab 03/02/18 HYDROcodone/APAP 10-325MG [[place] 10-325] 1 tab PO Q6H PRN #120 tab 03/02/18 Ibuprofen [Motrin] 800 mg PO Q8HR #90 tab 03/02/18 Pregabalin [Lyrica] 75 mg PO TID #90 cap 03/02/18 Controlled Substance Measures - Controlled Substance Measures Is patient prescribed a controlled substance at discharge?: Yes If prescribed controlled substance>3 days was MAPS reviewed?: Yes When asked, does pt state using other controlled substances?: No
== END | disposition home or self-care (01) ==
LOC: PNWHC3 13:18
PROVIDERS: ATTEND Pain Medicine Pain Medicine
DX: G89.29 Other chronic pain (principal); M54.2 Cervicalgia; M54.16 Radiculopathy, lumbar region; Z91.81 History of falling; Z79.891 Long term (current) use of opiate analgesic; Z79.1 Long term (current) use of non-steroidal anti-inflammatories (NSAID); Z79.899 Other long term (current) drug therapy
CPT/HCPCS: 99211

== ENCOUNTER → 2018-04-27 | Outpatient (CLI) | payer OTHER ==
[2018-04-27 14:15] VITALS: BP 129/79; PULSE 98; RESP 16
--- NOTE | 2018-04-27 15:31 | P.PAINPG ---
Subjective Progress Note Date: 04/27/18 This is follow-up visit for this patient with a history of severe and chronic neck pain secondary to cervical spondylosis , lumbar spondylosis with facet arthropathy, We have done interventional pain procedures cervical medial branch block , and patient had complications during the procedure was not completed, Patients currently on [place] 10/325 every 6 hours , Lyrica 75 mg 3 times a day, Zanaflex 4 mg 3 times a day, Motrin 800 mg 3 times a day Patient denies any side effects of the medication, denies excessive drowsiness or sleepiness, denies suicidal ideation, and reports that the current pain medication is helping to control the pain and improve activity of daily living Patient denies any motor or sensory deficit , patient denies any fever or night sweats, denies any change in the bowel movements or urination Current patient complaining of numbness and tingling sensation in the digits from the left elbow towards the left wrist area Physical Examinations : 1-Constitutional : Cooperative , not in acute distress . 2-HEENT : nech ; supple , no Lymphadenopathy , no Thyromegaly , normal thyroid size . eyes : no ptosis , no icterus, no photophobia . ENT : normal of hearing , normal oropharynx , no Thrush . 3- Respiratory : Chest clear to auscultations Bilaterally , no wheezing , no Rhonchi . 4- Cardiovascular : regular rate and rhythem , S1 , S2 , no S3 , no S4. 5- Gastrointestinal : abdomen soft no tenderness , bowel sounds positive all four quadrents , no organomegally . 6- Genitourinary : Defferred . 7- neurologic: Cranial nerve II to XII intact , no focal neurological deffecit . 8- Psychatric: alert , oriented X 3 , appropriate affect , intact judgment and insight . 9- Lymphatic : no Lymphadenopathy . 10- Musculoskeltal : exams of the cervical spine = motor strength normal bilateral upper extremities facet loading test cervical area positive. Tenderness over the left elbow area and the medial aspect exams of the Lumber spine =motor strength lower extremities ,thigh and legs .5/5 . lumber facet Loading Test positive Assessment and plan = Chronic low back pain secondary to lumbar degenerative disc disease , lumbar spondylosis with facet arthropathy without myelopathy chronic and current use of high-risk medication (Opioids). The patient was counseled about risk of opioid use, psychological risk associated with opioids and was orally counseled to not overuse , divert,or sell dictations to take medications as prescribed only , and to restore medication in safe location , the patient counseled against driving while using narcotic medications , and also not to use alcohol or any illicit recreational drugs, patient's verbalized understanding that the lack of compliance will result in failure to renew narcotic prescription and possible discharge from the clinic - diagnoses, prognosis, and treatment options including but not limited to physical therapy, surgical interventions, interventional therapies , and medication management including narcotics and adjuvant medication were discussed with the patient and all the questions answered Prescription refill for [place] 10/325 every 6 hours 120 with one refill, Motrin 800 mg 3 times a day dispense 90 with 1 refill, Zanaflex 4 mg 3 times a day dispense 90 with 1 refill Lyrica 75 mg 3 times a day with 1 refill Objective - Vital Signs Vital signs: Vital Signs Temp Pulse 98 04/27/18 14:06 Resp 16 04/27/18 14:06 BP 129/79 04/27/18 14:06 Pulse Ox 94 L 04/27/18 14:06 Intake & Output 04/26/18 04/27/18 04/27/18 18:59 06:59 18:59 Weight 88.451 kg PQRS Measure Charge Sheet Measure #130: Documentation of Current Meds in Medical Chart: Patient's medications documented in chart Measure #226: Tobacco Use: Screen & Cessation Intervention: Pt screened for tobacco use AND intervention given Measure #111: Pneumonia Vaccination: Pneumococcal vaccine NOT administered or previously given Measure #47: Advance Care Plan: Advance care planning discussed & documented, plan or surrogate given Measure #412: Opioid Treatment Agreement: Documented signed opioid trtmnt agreemnt min once during opioid trtmnt Measure #408: Opioid Therapy Follow-up Evaluation: Patient had f/u eval minimum every 3 months during opioid therapy Measure #317: Preventitive Care & Scrn High Bld Press & F/U: Normal blood pressure, f/u not required Measure #128: Body Mass Index (BMI) Screening & Follow-up: BMI documented ABOVE normal parameters - f/u documented Measure #131: Pain Assessment & Follow-up: Pain positive & plan documented, Follow-up scheduled Measure #431: Unhealthy Alcohol Use Preventative Care & Scrn: Patient not identified as an unhealthy alcohol user PQRS Narrative: Smoking Status Current every day smoker Do You Want the Pneumonia Vaccine Up to Date Vaccine AT THIS TIME? Narcotic Agreement Date Signed 03/04/16 Blood Pressure 129/79 Pain Intensity [Bilateral 7 Posterior Neck] Hx Alcohol Use (MH) No Home Medications: Ambulatory Orders Atorvastatin [Lipitor] 20 mg PO HS 04/16/14 Ranitidine HCl [Zantac] 150 mg PO DAILY PRN 04/16/14 metFORMIN HCL [Glucophage] 1,000 mg PO BID 04/16/14 Levothyroxine Sodium [Synthroid] 75 mcg PO DAILY 05/15/14 Ergocalciferol [Vitamin D2 (DRISDOL)] 50,000 unit PO Q30D 07/09/14 Albuterol Sulfate [Proair Hfa] 2 puff INHALATION BID PRN 12/31/14 DULoxetine HCL [Cymbalta] 60 mg PO DAILY 12/31/14 Tamsulosin HCl [Flomax] 0.4 mg PO HS 12/31/14 clonazePAM [KlonoPIN] 0.5 mg PO DAILY PRN 12/31/14 rOPINIRole HCL [Requip] 1 mg PO HS 06/05/15 Escitalopram [Lexapro] 20 mg PO DAILY 07/17/15 Metaproterenol Sulfate 25 mg PO DAILY 09/05/15 Lurasidone [Latuda] 60 mg PO HS 11/13/15 Cetirizine HCl [Zyrtec] 5 mg PO DAILY PRN 09/18/16 Nicotine 21Mg/24Hr Patch [Habitrol] 1 patch TOPICAL DIRECTED 11/10/17 Hydrocodone/Acetaminophen [[place] 10-325] 10 mg PO Q6HR PRN #120 tablet 01/05/18 Losartan [Cozaar] 25 mg PO DAILY 01/05/18 HYDROcodone/APAP 10-325MG [[place] 10-325] 1 tab PO Q6H PRN #120 tab 04/27/18 HYDROcodone/APAP 10-325MG [[place] 10-325] 1 tab PO Q6H PRN #120 tab 04/27/18 Ibuprofen [Motrin] 800 mg PO Q8HR #90 tab 04/27/18 Pregabalin [Lyrica] 75 mg PO TID #90 cap 04/27/18 tiZANidine [Zanaflex] 4 mg PO TID PRN #90 tab 04/27/18 Controlled Substance Measures - Controlled Substance Measures Is patient prescribed a controlled substance at discharge?: Yes When asked, does pt state using other controlled substances?: Yes If prescribed controlled substance>3 days was MAPS reviewed?: Yes If Rx opioid, was Start Talking consent form obtained?: Yes If opioid is for acute pain is fill amount 7 days or less?: No Was information provided regarding opioid addiction?: Yes
== END | disposition home or self-care (01) ==
LOC: PNWHC3 13:21
PROVIDERS: ATTEND Specialist
DX: G89.29 Other chronic pain (principal); M47.812 Spondylosis without myelopathy or radiculopathy, cervical region; M51.36 Other intervertebral disc degeneration, lumbar region; M47.816 Spondylosis without myelopathy or radiculopathy, lumbar region; M46.96 Unspecified inflammatory spondylopathy, lumbar region; F17.200 Nicotine dependence, unspecified, uncomplicated; Z79.891 Long term (current) use of opiate analgesic; Z79.899 Other long term (current) drug therapy; Z79.1 Long term (current) use of non-steroidal anti-inflammatories (NSAID); Z79.84 Long term (current) use of oral hypoglycemic drugs
CPT/HCPCS: 99211

== ENCOUNTER → 2018-06-22 | Outpatient (CLI) | payer OTHER ==
[2018-06-22 13:21] VITALS: BP 124/75; PULSE 71; RESP 18; TEMP 98.5
--- NOTE | 2018-06-22 13:31 | P.PN ---
Progress Note - Text Progress Note Date: 06/22/18 Patient returns for followup for chronic back pain with radiation to LLE > RLE with pain and numbness in bilateral upper extremities. Patient continues on [place], Lyrica, Motrin, and Zanaflex medications for pain with good relief. I had a lengthy discussion with patient regarding his use of benzodiazepines. He states that he does take it nightly for sleep. I informed him that we can no longer prescribe opiates if he continues to get prescriptions of benzodiazepines. He understands and will talk to his psychiatrist about other pharmacologic options with regards to anxiety/sleep. I informed him the combination both opioids and benzodiazepines can be lethal and cause significant respiratory as well as [employer] depression. Patient denies adverse drug effects from medications or from procedure. Today, pt denies new-onset weakness , bowel/bladder incontinence, or any other signs or symptoms of cauda equina syndrome. There are no signs of acute intoxication, and no indications of medication diversion or overuse. In addition to above, 13-point review of systems is also negative for chest pain , shortness of breath, changes in vision, changes in hearing, new onset weakness , abdominal pain, diarrhea, extreme fatigue, malaise, fever, skin changes, homicidal or suicidal ideation. Vital Signs: Reviewed in EMR Gen: WDWN, AAOx3, NAD HEENT: NCAT, EOMI, hearing grossly normal Pulm: resp unlabored Abd: soft, NT, ND Neck: supple, trachea midline; + cervical facet tenderness bilateral, + Spurling's LUE Neuro: CN II-XII grossly intact Assessment: 1. lumbar spinal stenosis 2. lumbar radiculopathy 3. chronic pain syndrome 4. cervical PLPS 5. cervical radiculopathy (EMG-proven) Plan: 1. Explanation: Opioid and psychological risk scores were reviewed. Diagnoses , prognoses, and multiple treatment options including but not limited to physical therapy, interventional therapies, adjuvant medical therapies, narcotic medication therapies, and surgery were discussed with the patient and all questions were answered to the patient's satisfaction. 2. Opioid agreement: Patient has previously signed narcotic agreement, and was orally counseled to not overuse, abuse, divert, or cell medications, and to take them as prescribed by only 1 healthcare provider. The patient was also counseled to store opioid medications in a safe and preferably locked location. Patient was also counseled against driving while using narcotic medications and also to not use alcohol or any illicit or recreational drugs. The patient verbalized understanding that lack of compliance with any of the above and likely result in failure to renew narcotic prescriptions, possible discharge from the clinic, and possible legal ramifications thereafter if indicated. 3. Counseling: The patient was counseled extensively on SMOKING CESSATION, BODY MASS INDEX, EXERCISE. Specifically, the patient was instructed regarding the importance of smoking cessation, obesity, and exercise in the context of both chronic pain and overall health. 4. Procedures: none for now 5. Consultations: none 6. Investigations: UDS today: Follow-up on final results. 7. Medications: [place] 10/325 #120 with one refill, Lyrica, Motrin and Zanaflex with two refills 8. Disposition: f/u for re-eval in 8 weeks. PQRS measures: 1-Patient's medications are documented in the chart. 2-Tobacco use is positive, refused counseling 3-Patient has not had a pneumococcal vaccine. 4-Advanced care planning discussed, patient unable to give. 5-Opioid contract signed with the patient. 6-Pain positive, follow-up visit or procedure scheduled 7-Patient's blood pressure measured and documented, and patient will follow up with the primary care due to hypertension. 8-Patient's weight was measured, and body mass index ABOVE the normal limits, and counseling was done. Patient instructed to follow up with PCP. 9-Patient WAS NOT identified as an unhealthy alcohol user.
== END | disposition home or self-care (01) ==
LOC: PNWHC3 12:57
PROVIDERS: ATTEND Anesthesiology
DX: G89.4 Chronic pain syndrome (principal); M48.061 Spinal stenosis, lumbar region without neurogenic claudication; M96.1 Postlaminectomy syndrome, not elsewhere classified; M54.12 Radiculopathy, cervical region; M54.16 Radiculopathy, lumbar region; Z79.891 Long term (current) use of opiate analgesic; Z79.1 Long term (current) use of non-steroidal anti-inflammatories (NSAID); Z79.899 Other long term (current) drug therapy; Z51.81 Encounter for therapeutic drug level monitoring
CPT/HCPCS: 80307; G0482; G0463; 99211

== ENCOUNTER → 2018-08-17 | Outpatient (CLI) | payer OTHER ==
[2018-08-17 13:34] VITALS: BP 138/92; PULSE 115; RESP 20
--- NOTE | 2018-08-17 15:01 | P.PAINPG ---
Subjective Progress Note Date: 08/17/18 This is follow-up visit for this patient with a history of severe and chronic neck pain secondary to cervical spondylosis , lumbar spondylosis with facet arthropathy, We have done interventional pain procedures cervical medial branch block , and patient had complications during the procedure was not completed, Patients currently on [place] 10/325 every 6 hours , Lyrica 75 mg 3 times a day, Zanaflex 4 mg 3 times a day, Motrin 800 mg 3 times a day Patient denies any side effects of the medication, denies excessive drowsiness or sleepiness, denies suicidal ideation, and reports that the current pain medication is helping to control the pain and improve activity of daily living Patient denies any motor or sensory deficit , patient denies any fever or night sweats, denies any change in the bowel movements or urination Current patient complaining of numbness and tingling sensation in the digits from the left elbow towards the left wrist area, and patient had the ulnar nerve transposition surgery recently , He continued to have severe numbness and tingling sensation in the left upper extremity Physical Examinations : 1-Constitutional : Cooperative , not in acute distress . 2-HEENT : nech ; supple , no Lymphadenopathy , no Thyromegaly , normal thyroid size . eyes : no ptosis , no icterus, no photophobia . ENT : normal of hearing , normal oropharynx , no Thrush . 3- Respiratory : Chest clear to auscultations Bilaterally , no wheezing , no Rhonchi . 4- Cardiovascular : regular rate and rhythem , S1 , S2 , no S3 , no S4. 5- Gastrointestinal : abdomen soft no tenderness , bowel sounds positive all four quadrents , no organomegally . 6- Genitourinary : Defferred . 7- neurologic: Cranial nerve II to XII intact , no focal neurological deffecit . 8- Psychatric: alert , oriented X 3 , appropriate affect , intact judgment and insight . 9- Lymphatic : no Lymphadenopathy . 10- Musculoskeltal : exams of the cervical spine = motor strength normal bilateral upper extremities facet loading test cervical area positive. Tenderness over the left elbow area and the medial aspect exams of the Lumber spine =motor strength lower extremities ,thigh and legs .5/5 . lumber facet Loading Test positive Assessment and plan = Chronic low back pain secondary to lumbar degenerative disc disease , lumbar spondylosis with facet arthropathy without myelopathy chronic and current use of high-risk medication (Opioids). The patient was counseled about risk of opioid use, psychological risk associated with opioids and was orally counseled to not overuse , divert,or sell dictations to take medications as prescribed only , and to restore medication in safe location , the patient counseled against driving while using narcotic medications , and also not to use alcohol or any illicit recreational drugs, patient's verbalized understanding that the lack of compliance will result in failure to renew narcotic prescription and possible discharge from the clinic - diagnoses, prognosis, and treatment options including but not limited to physical therapy, surgical interventions, interventional therapies , and medication management including narcotics and adjuvant medication were discussed with the patient and all the questions answered Prescription refill for [place] 10/325 every 6 hours 120 with one refill, Zanaflex 4 mg 3 times a day dispense 90 with 1 refill Increase Lyrica to 100 mg 3 times a day ,dispence 90 with 1 refill, MAPS reviewed and it was appropriate, urine drug screen was reviewed and it was appropriate, he will follow up with the pain clinic in 2 months Objective - Vital Signs Vital signs: Vital Signs Temp Pulse 115 H 08/17/18 13:29 Resp 20 08/17/18 13:29 BP 138/92 08/17/18 13:29 Pulse Ox 95 08/17/18 13:29 Intake & Output 08/16/18 08/17/18 08/17/18 18:59 06:59 18:59 Weight 88.451 kg PQRS Measure Charge Sheet Measure #130: Documentation of Current Meds in Medical Chart: Patient's medications documented in chart Measure #226: Tobacco Use: Screen & Cessation Intervention: Pt not a tobacco user Measure #111: Pneumonia Vaccination: Pneumococcal vaccine administered or previously received Measure #47: Advance Care Plan: Advance care planning discussed & documented, pt chose/unable to give Measure #412: Opioid Treatment Agreement: Documented signed opioid trtmnt agreemnt min once during opioid trtmnt Measure #408: Opioid Therapy Follow-up Evaluation: Patient had f/u eval minimum every 3 months during opioid therapy Measure #317: Preventitive Care & Scrn High Bld Press & F/U: Normal blood pressure, f/u not required Measure #128: Body Mass Index (BMI) Screening & Follow-up: BMI documented ABOVE normal parameters - f/u documented Measure #131: Pain Assessment & Follow-up: Pain positive & plan documented, Follow-up scheduled Measure #431: Unhealthy Alcohol Use Preventative Care & Scrn: Patient not identified as an unhealthy alcohol user PQRS Narrative: Smoking Status Former smoker Do You Want the Pneumonia Yes Vaccine AT THIS TIME? Narcotic Agreement Date Signed 03/04/16 Blood Pressure 138/92 Pain Intensity [Generalized] 7 Scale Used Numeric (1 - 10) Hx Alcohol Use (MH) No Home Medications: Ambulatory Orders Atorvastatin [Lipitor] 20 mg PO HS 04/16/14 Ranitidine HCl [Zantac] 150 mg PO DAILY PRN 04/16/14 metFORMIN HCL [Glucophage] 1,000 mg PO BID 04/16/14 Levothyroxine Sodium [Synthroid] 75 mcg PO DAILY 05/15/14 Ergocalciferol [Vitamin D2 (DRISDOL)] 50,000 unit PO Q30D 07/09/14 Albuterol Sulfate [Proair Hfa] 2 puff INHALATION BID PRN 12/31/14 DULoxetine HCL [Cymbalta] 60 mg PO DAILY 12/31/14 Tamsulosin HCl [Flomax] 0.4 mg PO HS 12/31/14 rOPINIRole HCL [Requip] 1 mg PO HS 06/05/15 Escitalopram [Lexapro] 20 mg PO DAILY 07/17/15 Metaproterenol Sulfate 25 mg PO DAILY 09/05/15 Lurasidone [Latuda] 60 mg PO HS 11/13/15 Cetirizine HCl [Zyrtec] 5 mg PO DAILY PRN 09/18/16 Losartan [Cozaar] 25 mg PO DAILY 01/05/18 Ibuprofen [Motrin] 800 mg PO Q8HR #90 tab 04/27/18 Hydrocodone/Acetaminophen [[place] 10-325] 1 tab PO Q6H PRN 30 Days #120 tab 08/17 Hydrocodone/Acetaminophen [[place] 10-325] 10 mg PO Q6HR PRN #120 tablet 08/17/18 Pregabalin [Lyrica] 100 mg PO TID 30 Days #90 cap 08/17/18 tiZANidine [Zanaflex] 4 mg PO TID PRN #90 tab 08/17/18 traZODone HCL [TraZODone HCl] 1 tab PO HS 08/17/18 Controlled Substance Measures - Controlled Substance Measures Is patient prescribed a controlled substance at discharge?: Yes When asked, does pt state using other controlled substances?: No If prescribed controlled substance>3 days was MAPS reviewed?: Yes If Rx opioid, was Start Talking consent form obtained?: Yes If opioid is for acute pain is fill amount 7 days or less?: No Was information provided regarding opioid addiction?: Yes
== END | disposition home or self-care (01) ==
LOC: PNWHC3 13:14
PROVIDERS: ATTEND Specialist
DX: G89.29 Other chronic pain (principal); M54.2 Cervicalgia; M25.522 Pain in left elbow; M25.532 Pain in left wrist; M51.36 Other intervertebral disc degeneration, lumbar region; M47.812 Spondylosis without myelopathy or radiculopathy, cervical region; M47.816 Spondylosis without myelopathy or radiculopathy, lumbar region; M46.86 Other specified inflammatory spondylopathies, lumbar region; F11.90 Opioid use, unspecified, uncomplicated; Z98.890 Other specified postprocedural states; Z79.1 Long term (current) use of non-steroidal anti-inflammatories (NSAID); Z79.899 Other long term (current) drug therapy; Z71.89 Other specified counseling; Z87.891 Personal history of nicotine dependence
CPT/HCPCS: 99211

== ENCOUNTER → 2018-10-12 | Outpatient (CLI) | payer OTHER ==
[2018-10-12 13:24] VITALS: BP 154/97; PULSE 85; RESP 16
--- NOTE | 2018-10-12 13:43 | P.PAINPG ---
Subjective Progress Note Date: 10/12/18 Principal diagnosis: Bilateral cervical radiculopathy This a 48-year-old gentleman with a history of bilateral cervical radicular pain. He recently underwent ulnar nerve entrapment release. This did not help the numbness in his hands. He is currently seeing a neurologist and has an MRI of his cervical spine scheduled for Wednesday to help with determining the cause of his problems. He is also had EMGs which demonstrate a problem at C5 and C6 according to the patient. He is considering neurosurgical evaluation if nothing else can be done to help his pain. He is requesting an increase on his muscle relaxants as he says his pain is out of control. He is undergone injection therapy in the past however he did have a significant complication and is very reluctant to speak and this again. Objective - Vital Signs Vital signs: Vital Signs Temp Pulse 85 10/12/18 13:10 Resp 16 10/12/18 13:10 BP 154/97 10/12/18 13:10 Pulse Ox 95 10/12/18 13:10 Intake & Output 10/11/18 10/12/18 10/12/18 18:59 06:59 18:59 Weight 90.718 kg - Exam General: The patient is alert and oriented. Patient is not sedated Patient answers all question appropriately. He has a flat affect. His posture is quite poor Cardiac: Heart is regular in rate and rhythm Respiratory: Clear to auscultation. No audible wheezes. Abdomen: Soft nontender nondistended. Musculoskeletal: Strength is normal bilaterally. Sensation is normal bilaterally. Straight leg raise is negative bilaterally. No focal motor deficits in his upper extremities. Neurological: Reflexes are preserved and symmetric bilaterally. He is not hyperreflexic. Assessment and Plan (1) Cervical radiculopathy Current Visit: Yes Status: Acute Code(s): M54.12 - RADICULOPATHY, CERVICAL REGION SNOMED Code(s): 43894807 (2) Degenerative disc disease, cervical Narrative/Plan: Plan of Care 1. Medications: I will refill the patient's [place] today as well as his Lyrica. I will not prescribe another muscle relaxant for him. I did have a detailed conversation with him regarding the risks of taking concomitant central nervous system depressants. I do not believe he 70 further escalation in his doses of medications. I explained this to him today. I have reviewed the patient's MAPS report and it reveals expected results. Patient has signed an opiate agreement as well as opiate consent for treatment in our clinic. They understand the risks and benefits of opiate medications. They are aware of the potential for addiction. 2. Interventions: None at this time 3. Referrals: Patient will follow up with his neurologist and will send us his MRI results of his cervical spine. 4. Testing: Patient will obtain a cervical MRI in the near future. 5. Follow-up: 2 months or sooner if needed. Current Visit: No Status: Acute Code(s): M50.30 - OTHER CERVICAL DISC DEGENERATION, UNSP CERVICAL REGION SNOMED Code(s): 98392363 (3) Facet arthropathy, cervical Current Visit: No Status: Acute Code(s): M46.92 - UNSPECIFIED INFLAMMATORY SPONDYLOPATHY, CERVICAL REGION SNOMED Code(s): 612661041 PQRS Measure Charge Sheet Measure #130: Documentation of Current Meds in Medical Chart: Patient's medications documented in chart Measure #226: Tobacco Use: Screen & Cessation Intervention: Pt not a tobacco user Measure #111: Pneumonia Vaccination: Pneumococcal vaccine NOT administered or previously given Measure #47: Advance Care Plan: Advance care planning discussed & documented, pt chose/unable to give Measure #412: Opioid Treatment Agreement: No documentation of signed opioid treatment agreement Measure #408: Opioid Therapy Follow-up Evaluation: Patient had f/u eval minimum every 3 months during opioid therapy Measure #317: Preventitive Care & Scrn High Bld Press & F/U: Pre-hypertensive or hypertensive BP documented, pt will f/u with PCP Measure #128: Body Mass Index (BMI) Screening & Follow-up: BMI documented ABOVE normal parameters - f/u documented Measure #131: Pain Assessment & Follow-up: Pain positive & plan documented Measure #431: Unhealthy Alcohol Use Preventative Care & Scrn: Patient not identified as an unhealthy alcohol user PQRS Narrative: Smoking Status Current every day smoker Do You Want the Pneumonia No Vaccine AT THIS TIME? Narcotic Agreement Date Signed 08/17/18 Blood Pressure 154/97 Pain Intensity [Bilateral 8 Posterior Neck] Scale Used Numeric (1 - 10) Hx Alcohol Use (MH) No Home Medications: Ambulatory Orders Atorvastatin [Lipitor] 20 mg PO HS 04/16/14 Ranitidine HCl [Zantac] 150 mg PO DAILY PRN 04/16/14 metFORMIN HCL [Glucophage] 1,000 mg PO BID 04/16/14 Levothyroxine Sodium [Synthroid] 75 mcg PO DAILY 05/15/14 Ergocalciferol [Vitamin D2 (DRISDOL)] 50,000 unit PO Q30D 07/09/14 Albuterol Sulfate [Proair Hfa] 2 puff INHALATION BID PRN 12/31/14 DULoxetine HCL [Cymbalta] 60 mg PO DAILY 12/31/14 Tamsulosin HCl [Flomax] 0.4 mg PO HS 12/31/14 rOPINIRole HCL [Requip] 1 mg PO HS 06/05/15 Escitalopram [Lexapro] 20 mg PO DAILY 07/17/15 Metaproterenol Sulfate 25 mg PO DAILY 09/05/15 Lurasidone [Latuda] 60 mg PO HS 11/13/15 Cetirizine HCl [Zyrtec] 5 mg PO DAILY PRN 09/18/16 Losartan [Cozaar] 25 mg PO DAILY 01/05/18 Hydrocodone/Acetaminophen [[place] 10-325] 1 tab PO Q6H PRN 30 Days #120 tab 08/17 Pregabalin [Lyrica] 100 mg PO TID 30 Days #90 cap 08/17/18 tiZANidine [Zanaflex] 4 mg PO TID PRN #90 tab 08/17/18 traZODone HCL [TraZODone HCl] 1 tab PO HS 08/17/18 Ibuprofen [Motrin] 800 mg PO BID 10/12/18 Controlled Substance Measures - Controlled Substance Measures Is patient prescribed a controlled substance at discharge?: Yes When asked, does pt state using other controlled substances?: No If prescribed controlled substance>3 days was MAPS reviewed?: Yes
== END ==
LOC: PNWHC3 12:54
PROVIDERS: ATTEND Pain Medicine Pain Medicine
DX: M50.10 Cervical disc disorder with radiculopathy, unspecified cervical region (principal); M46.92 Unspecified inflammatory spondylopathy, cervical region; F17.200 Nicotine dependence, unspecified, uncomplicated; Z79.899 Other long term (current) drug therapy; Z79.84 Long term (current) use of oral hypoglycemic drugs; Z79.1 Long term (current) use of non-steroidal anti-inflammatories (NSAID)
CPT/HCPCS: 99211

== ENCOUNTER → 2018-10-14 | Outpatient (CLI) | payer OTHER ==
--- NOTE | 2018-10-14 15:38 | MR ---
EXAMINATION TYPE: MR cervical spine wo/w con DATE OF EXAM: 10/14/2018 COMPARISON: 05/07/2016 HISTORY: Cervical disc disorder, pain CONTRAST: Performed utilizing 9 mL intravenous Gadavist gadolinium contrast. TECHNIQUE: Multiplanar multiecho imaging on a 3.0 Kamila magnet is performed through the cervical spin e. FINDINGS: The craniovertebral junction is normal. Vertebral body alignment is normal. Anterior cer vical fusion is present C6-7. C7-T1: No focal disc herniation or significant disc bulge is evident. No spinal canal stenosis or n eural foraminal stenosis is present. C6-7: No focal disc herniation or significant disc bulge is evident. No spinal canal stenosis or bran ral foraminal stenosis is present. C5-6: Very minimal central protrusion is present with anterior thecal sac contact. No cord contact or spinal canal stenosis is present.. C4-5: Broad-based central left paracentral disc bulge has moderate anterior thecal sac compression. N o cord contact or cord deformity is evident. No spinal canal stenosis present. Neural foramen are pat ent.. C3-4: Left paracentral asymmetric bulging is present with mild anterior thecal sac compression. No co rd contact is evident. No spinal canal stenosis present. Mild left foraminal narrowing may be present . C2-3: No focal disc herniation or significant disc bulge is evident. No spinal canal stenosis or bran ral foraminal stenosis is present. No abnormal enhancement is evident. C3-4, C4-5 findings are stable. There is diminished disc into the right paracentral region at C5-6. IMPRESSIONS: 1. Mild left paracentral disc bulging present C3-4, C4-5 with mild anterior thecal sac compression wi thout stenosis. 2. Significant interval change not apparent.
== END | disposition home or self-care (01) ==
LOC: RADMRIMAIN 12:40
PROVIDERS: ATTEND Physician Assistant Medical
DX: M50.21 Other cervical disc displacement, high cervical region (principal)
CPT/HCPCS: 72156; A9585

== ENCOUNTER → 2018-11-16 | Outpatient (CLI) | payer OTHER ==
--- NOTE | 2018-11-16 10:14 | XR ---
EXAMINATION TYPE: XR thoracic spine complete DATE OF EXAM: 11/16/2018 COMPARISON: None HISTORY: Fall, pain TECHNIQUE: Three-view thoracic spine FINDINGS: There are 12 thoracic type vertebral bodies. The pedicles are intact. Some rudimentary ribs may be present at L1. Disc heights are preserved. Vertebral body heights are preserved. There is a c ervical anterior fusion. IMPRESSION: 1. No acute posttraumatic changes thoracic spine.
== END | disposition home or self-care (01) ==
LOC: RADXRYALE 09:25
PROVIDERS: ATTEND Physician Assistant
DX: M54.6 Pain in thoracic spine (principal)
CPT/HCPCS: 72072

== ENCOUNTER 2018-11-17 11:44 | Emergency (ER) | payer OTHER ==
[2018-11-17 11:56] VITALS: RESP 18; TEMP 98
[2018-11-17] MEDS ORDERED: KETOROLAC 60 MG/2 ML VIAL IM STA (12:19)
--- NOTE | 2018-11-17 12:26 | ED ---
General Adult HPI - General Chief complaint: Fall Stated complaint: Fall, back pain/Arm pain Time Seen by Provider: 11/17/18 11:55 Source: patient, RN notes reviewed Mode of arrival: ambulatory Limitations: no limitations - History of Present Illness Initial comments: This is a 48-year-old male who presents emergency Department complaining of a slip and fall yesterday. Patient states he fell onto his back and he complains of mid upper back pain as well as some right-sided neck pain. Patient has full range of motion of his neck. Patient denies hitting his head patient denies any loss of consciousness. Patient denies being days. Patient is able to move all 4 extremities. Patient does complain of some mid left arm pain but he has full range of motion at the shoulder and elbow he states patient states that she is tender when he touches his muscle. Patient also complains of some mild lateral left hip pain. - Related Data Home Medications Medication Instructions Recorded Confirmed Atorvastatin [Lipitor] 20 mg PO HS 04/16/14 10/12/18 Ranitidine HCl [Zantac] 150 mg PO DAILY PRN 04/16/14 10/12/18 metFORMIN HCL [Glucophage] 1,000 mg PO BID 04/16/14 10/12/18 Levothyroxine Sodium [Synthroid] 75 mcg PO DAILY 05/15/14 10/12/18 Ergocalciferol [Vitamin D2 50,000 unit PO Q30D 07/09/14 10/12/18 (DRISDOL)] Albuterol Sulfate [Proair Hfa] 2 puff INHALATION BID PRN 12/31/14 10/12/18 DULoxetine HCL [Cymbalta] 60 mg PO DAILY 12/31/14 10/12/18 Tamsulosin HCl [Flomax] 0.4 mg PO HS 12/31/14 10/12/18 rOPINIRole HCL [Requip] 1 mg PO HS 06/05/15 10/12/18 Escitalopram [Lexapro] 20 mg PO DAILY 07/17/15 10/12/18 Metaproterenol Sulfate 25 mg PO DAILY 09/05/15 10/12/18 Lurasidone [Latuda] 60 mg PO HS 11/13/15 10/12/18 Cetirizine HCl [Zyrtec] 5 mg PO DAILY PRN 09/18/16 10/12/18 Losartan [Cozaar] 25 mg PO DAILY 01/05/18 10/12/18 traZODone HCL [TraZODone HCl] 1 tab PO HS 08/17/18 10/12/18 Ibuprofen [Motrin] 800 mg PO BID 10/12/18 10/12/18 Previous Rx's Medication Instructions Recorded Hydrocodone/Acetaminophen [[place] 1 tab PO Q6H PRN 30 Days #120 tab 08/17/18 10-325] Pregabalin [Lyrica] 100 mg PO TID 30 Days #90 cap 08/17/18 tiZANidine [Zanaflex] 4 mg PO TID PRN #90 tab 08/17/18 Ibuprofen [Motrin] 600 mg PO Q6HR PRN #20 tab 11/17/18 Allergies Allergy/AdvReac Type Severity Reaction Status Date / Time adhesive tape Allergy Rash/Hives Verified 11/17/18 11:53 cefaclor [From Ceclor] Allergy Rash/Hives Verified 11/17/18 11:53 Iodinated Contrast- Oral and Allergy Rash/Hives,throat Verified 11/17/18 11:53 IV Dye swelling [Iodinated Contrast Media - IV Dye] iodine Allergy Rash/Hives,throat Verified 11/17/18 11:53 swelling propoxyphene napsylate Allergy Rash/Hives Verified 11/17/18 11:53 [From Darvocet-N 100] Review of Systems ROS Statement: Those systems with pertinent positive or pertinent negative responses have been documented in the HPI. ROS Other: All systems not noted in ROS Statement are negative. Past Medical History Past Medical History: Asthma, Diabetes Mellitus, Fibromyalgia, Hypertension, Skin Disorder, Thyroid Disorder Additional Past Medical History / Comment(s): TMJ sinus pb.,eczema, scars, tatoos, body piercings, kidney stones,diverticulitis, ulcers. abd. pain, back pain, implants, fractures,physical limitations, numbness and tingling both legs and bothhands. uses a cane at times, removal of skin cancer DX WITH HYPERREFLEXIA, "Swollen nerves in eyes." Bilateral nerve release in bilateral elbows - June 2018 History of Any Multi-Drug Resistant Organisms: None Reported Past Surgical History: Adenoidectomy, Orthopedic Surgery, Tonsillectomy Additional Past Surgical History / Comment(s): neck fusion,colonoscopy, left knee arthroscopy, Carpal tunnel surgery both wrists recently, PAIN CLINIC INJECTIONS Past Anesthesia/Blood Transfusion Reactions: No Reported Reaction Past Psychological History: Anxiety, Depression Smoking Status: Current every day smoker Past Alcohol Use History: Occasional Past Drug Use History: None Reported - Past Family History Mother Family Medical History: Cancer Father Family Medical History: Cancer General Exam - General Exam Comments Initial Comments: GENERAL Patient is well-developed and well-nourished. Patient is in mild distress. EYES Patient's pupils are equal and round. Extraocular motion is intact SKIN Unremarkable NEURO The patient is alert and oriented 3 PYSCH Patient has normal interpersonal interactions. MUSCULOSKELETAL patient is able to ambulate without problem. Patient moved all 4 extremities without problem. Patient did have some mild left lateral hip pain. Patient also had some left upper arm pain in the musculature. Patient had some paraspinous muscle tenderness on palpation of the right side of his neck. Patient did have some paraspinal muscle tenderness in the midthoracic region. Limitations: no limitations Course Vital Signs 11/17/18 11:53 Temperature 98 F Pulse Rate 98 Respiratory 18 Rate Blood Pressure 165/92 O2 Sat by Pulse 95 Oximetry Medical Decision Making - Medical Decision Making C-spine x-ray shows no acute abnormality. Hip x-ray shows no acute abnormality. Patient has full range motion of the hip and is able stand it without problem. Disposition Clinical Impression: Contusion, hip, Thoracic myofascial strain Disposition: HOME SELF-CARE Condition: Good Instructions: Fall Prevention for Older Adults (ED) Prescriptions: Ibuprofen [Motrin] 600 mg PO Q6HR PRN #20 tab PRN Reason: For pain Is patient prescribed a controlled substance at d/c from ED?: No Referrals: Tristin Phillips DO [Primary Care Provider] - 1-2 days Time of Disposition: 13:22
--- NOTE | 2018-11-17 13:13 | XR ---
EXAMINATION TYPE: XR Hip Complete LT DATE OF EXAM: 11/17/2018 CLINICAL HISTORY: Left hip pain after fall yesterday TECHNIQUE: AP and frogleg views of the left hip are obtained. COMPARISON: None. FINDINGS: There is no acute fracture/dislocation evident in the left hip. The joint space in the le ft hip appears demonstrates mild cranial joint space narrowing and acetabular roof sclerosis with sean y small protuberance at the lateral femoral head neck junction on the frog leg view indicative of a s mall cam deformity that may predispose this patient to internal impingement. The overlying soft tiss ue appears unremarkable. IMPRESSION: There is no acute fracture or dislocation in the left hip. Mild left femoral acetabular arthropathy.
--- NOTE | 2018-11-17 13:14 | XR ---
EXAMINATION TYPE: XR cervical spine comp DATE OF EXAM: 11/17/2018 TECHNIQUE: Frontal, lateral, oblique, swimmers, and open mouth view of the cervical spine are obtaine d. HISTORY: Neck pain after fall COMPARISON: None FINDINGS: The cervical spine is visualized in its entirety from C1 thru the top of T1 level, it is s atisfactory in alignment without evidence of acute fracture or dislocation. There is an anterior cer vical fusion device with intervertebral disc spacer at the C6-C7 levels there is mild retrolisthesis of C3 on C4 and C4 on C5 on the lateral view. Small marginal osteophytes and uncovertebral hypertroph y are seen at multiple levels. Mild right neural foraminal narrowing is present at C7 radiographicall y. Remainder of the neural foramen appear grossly patent. The pre-vertebral soft tissue appears withi n normal limits. The C1-C2 articulation is within normal limits on the open mouth view. IMPRESSION: No acute fracture or dislocation is seen in the cervical spine. Postsurgical and degener ative changes described above. Mild multilevel retrolisthesis of the upper cervical spine is likely o n a degenerative basis.
[2018-11-17 13:34] VITALS: BP 168/106; PULSE 82
== END 2018-11-17 13:33 | disposition home or self-care (01) ==
LOC: EC 11:44
DX: S70.02XA Contusion of left hip, initial encounter (principal); S29.012A Strain of muscle and tendon of back wall of thorax, initial encounter; M79.602 Pain in left arm; M54.2 Cervicalgia; J45.909 Unspecified asthma, uncomplicated; E11.9 Type 2 diabetes mellitus without complications; M79.7 Fibromyalgia; I10 Essential (primary) hypertension; E07.9 Disorder of thyroid, unspecified; F41.9 Anxiety disorder, unspecified; F32.9 Major depressive disorder, single episode, unspecified; F17.200 Nicotine dependence, unspecified, uncomplicated; Z98.1 Arthrodesis status; Z79.84 Long term (current) use of oral hypoglycemic drugs; Z79.890 Hormone replacement therapy; Z79.1 Long term (current) use of non-steroidal anti-inflammatories (NSAID); Z79.899 Other long term (current) drug therapy; Z91.048 Other nonmedicinal substance allergy status; Z88.1 Allergy status to other antibiotic agents; Z91.041 Radiographic dye allergy status; Z88.5 Allergy status to narcotic agent; W00.0XXA Fall on same level due to ice and snow, initial encounter; Y92.009 Unspecified place in unspecified non-institutional (private) residence as the place of occurrence of the external cause
CPT/HCPCS: 72050; 73502; 99283; 96372; J1885

== ENCOUNTER → 2018-12-01 | Outpatient (CLI) | payer OTHER ==
--- NOTE | 2018-12-01 15:42 | MR ---
EXAMINATION TYPE: MR lumbar spine wo con DATE OF EXAM: 12/01/2018 COMPARISON: None HISTORY: Low back pain and spasms into left leg, Degeneration CONTRAST: 0 mL intravenous Gadavist. TECHNIQUE: Multiplanar, multisequence images of the lumbar spine were acquired. FINDINGS: Cord terminates at the L1 level. L5-S1: Lowest disc levels labeled L5-S1. There is loss of disc height to this level. This area is not evaluated in the axial plane. L4-L5: There is mild central focal bulging with mild anterior thecal sac compression. The omentum fla vum laxity has posterior lateral thecal sac compression. Facet hypertrophy is present. No spinal leah l stenosis is present. Neural foramen are patent. L3-L4: Mild disc bulge has anterior thecal sac contact. This may be slightly greater in the left para central region. Ligamentum flavum laxity is present. No spinal canal stenosis or neural foraminal tatum nosis is present. L2-L3: No significant disc bulge or disc herniation. No spinal canal stenosis. No foraminal stenosi s. L1-L2: No significant disc bulge or disc herniation. No spinal canal stenosis. No foraminal stenosi s. T12-L1: No significant disc bulge or disc herniation. No spinal canal stenosis. No foraminal stenos is. IMPRESSION: 1. Mild central disc bulge L4-5 with anterior thecal sac compression. No stenosis is present.
== END | disposition home or self-care (01) ==
LOC: RADMRIMAIN 12:39
PROVIDERS: ATTEND Family Medicine
DX: M51.26 Other intervertebral disc displacement, lumbar region (principal)
CPT/HCPCS: 72148

== ENCOUNTER → 2018-12-07 | Outpatient (CLI) | payer OTHER ==
[2018-12-07 13:23] VITALS: BP 148/91; PULSE 84; RESP 18
--- NOTE | 2018-12-07 14:06 | P.PN ---
Subjective Progress Note Date: 12/07/18 This is a 48-year-old gentleman with history of neck and lower back pain. His neck pain radiates to both hands with occasional numbness and tingling in the hands and no specific radicular distribution. His lower back pain radiates to the left thigh anteriorly with numbness in the left anterior thigh. He denies any bowel or bladder dysfunction. He has been taking [place] 10 mg 4 times a day for the last 20 years. His most recent cervical and lumbar spine MRI showed very mild disc bulging and facet arthropathy. Today, pt denies new-onset weakness, bowel/bladder incontinence, or any other signs or symptoms of cauda equina syndrome. There are no signs of acute intoxication, and no indications of medication diversion or overuse. In addition to above, 13-point review of systems is also negative for chest pain , shortness of breath, changes in vision, changes in hearing, new onset weakness , abdominal pain, diarrhea, extreme fatigue, malaise, fever, skin changes, homicidal or suicidal ideation, or bowel or bladder incontinence. Vital Signs: Reviewed in EMR Gen: AAOx3, NAD HEENT: PERRLA,hearing grossly normal Pulm: resp unlabored,CTA Heart:S1,S2, No Mur Neck: supple, trachea midline Neuro exam of the lower extremities: Normal muscle strength and deep tendon reflexes. Neuro exam of the upper extremities showed also normal muscle strength and deep tendon reflexes. Straight leg raising test: Negative bilaterally Tenderness in the paravertebral musculature: Positive bilaterally in the cervical and lumbar paravertebral musculature. 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 Explanation: Opioid and psychological risk scores were reviewed. Diagnoses , prognoses, and multiple treatment options including but not limited to physical therapy, interventional therapies, adjuvant medical therapies, narcotic medication therapies, and surgery were discussed with the patient and all questions were answered to the patient's satisfaction. 2. Opioid agreement: Signed with the patient and the patient is warned not to use opioids while driving or before driving and not to combine opioids with benzodiazepines or alcohol. 3. Counseling: The patient was counseled extensively on SMOKING CESSATION, BODY MASS INDEX, EXERCISE. Specifically, the patient was instructed regarding the importance of smoking cessation, obesity, and exercise in the context of both chronic pain and overall health. 4. Procedures: None for now 5. Consultations: None 6. Investigations: None 7. Medications: We will wean him down on [place] from 4 times a day to 3 times a day and we will see him next month and then will go further down to only twice a day of [place] pills. I will give him prescription for Zanaflex 4 mg twice a day if needed and continue Lyrica 100 mg 3 times a day. I will give him only 90 pills of [place] for this month and next month when I go down to 60 pills per month. 8. Disposition: Return to clinic in 4 weeks 9. Maps were reviewed and were appropriate. PQRS measures: 1-Patient's medications are documented in the chart. 2-Tobacco use is positive, counseling given 3-Patient has had a pneumococcal vaccine. 4-Advanced care planning discussed, patient unable to give 5-Opioid contract signed with the patient. 6-Pain positive, follow-up visit or procedure scheduled 7-Patient's blood pressure measured and documented higher than normal, the patient will follow up with his family physician. 8-Patient's weight was measured, and body mass index ABOVE the normal limits, and counseling was done. Patient instructed to follow up with PCP. 9-Patient WAS NOT identified as an unhealthy alcohol user. Controlled Substance Measures Is patient prescribed a controlled substance at discharge?: Yes When asked, does pt state using other controlled substances?: No If prescribed controlled substance>3 days was MAPS reviewed?: Yes If Rx opioid, was Start Talking consent form obtained?: Yes If opioid is for acute pain is fill amount 7 days or less?: No Was information provided regarding opioid addiction?: Yes Objective - Vital Signs Vital signs: Vital Signs Temp Pulse 84 12/07/18 13:16 Resp 18 12/07/18 13:16 BP 148/91 12/07/18 13:16 Pulse Ox 94 L 12/07/18 13:16 Intake & Output 12/06/18 12/07/18 12/07/18 18:59 06:59 18:59 Weight 90.718 kg
== END | disposition home or self-care (01) ==
LOC: PNWHC3 13:04
PROVIDERS: ATTEND Anesthesiology
DX: M47.816 Spondylosis without myelopathy or radiculopathy, lumbar region (principal); M47.812 Spondylosis without myelopathy or radiculopathy, cervical region; F11.20 Opioid dependence, uncomplicated
CPT/HCPCS: 99211

== ENCOUNTER → 2018-12-31 | Outpatient (CLI) | payer OTHER ==
--- NOTE | 2018-12-31 17:10 | MR ---
EXAMINATION TYPE: MR brain wo con DATE OF EXAM: 12/31/2018 COMPARISON: December 02, 2017 HISTORY: Vascular headache / Abnormal reflex Standard multiplanar, multisequence MRI departmental protocol Multiplanar, multisequence images of the brain were acquired. Diffusion weighted imaging was performe d. FINDINGS: Ventricles and sulci appear fairly normal. There is no mass effect nor midline shift. There is no sign of intracranial hemorrhage. Brainstem is intact. There is no evidence of a cortical infar ct. There is no evidence of cerebral edema. Sella turcica appears normal. Corpus callosum is intact. There is a single 8 x 4 mm area of increased signal in the white matter right posterior parietal lobe . This appears new compared to old exam. IMPRESSION: There is a new single focus of increased signal in the right parietal lobe white matter compared to o ld exam. This could be area of focal ischemia.
== END | disposition home or self-care (01) ==
LOC: RADMRIMAIN 14:04
PROVIDERS: ATTEND Psychiatry & Neurology Neurology
DX: R90.89 Other abnormal findings on diagnostic imaging of central nervous system (principal); G44.1 Vascular headache, not elsewhere classified; R29.2 Abnormal reflex
CPT/HCPCS: 70551

== ENCOUNTER → 2019-01-04 | Outpatient (CLI) | payer OTHER ==
[2019-01-04 13:35] VITALS: BP 153/89; PULSE 88; RESP 18
--- NOTE | 2019-01-04 15:42 | P.PN ---
Subjective Progress Note Date: 01/04/19 This is follow-up visit for this patient with a history of severe and chronic neck pain secondary to cervical spondylosis, failed back surgery syndrome and cervical area , lumbar spondylosis with facet arthropathy, We have done interventional pain procedures cervical medial branch block , and patient had complications during the procedure was not completed, Patients currently on [place] 10/325 every 8 hours , Lyrica 100 mg 3 times a day, Zanaflex 4 mg 3 times a day, Motrin 800 mg 3 times a day Patient denies any side effects of the medication, denies excessive drowsiness or sleepiness, denies suicidal ideation, and reports that the current pain medication is helping to control the pain ,and improve activity of daily living Patient denies any motor or sensory deficit , patient denies any fever or night sweats, denies any change in the bowel movements or urination Current patient complaining of SEVERE upper and mid back pains , started after he fell recently and patient had a new MRI of the thoracic spine done which showed patient had transient fracture of T3 , and multilevel bulging disc disease in the thoracic spine Physical Examinations : 1-Constitutional : Cooperative , not in acute distress . 2-HEENT : nech ; supple , no Lymphadenopathy , no Thyromegaly , normal thyroid size . eyes : no ptosis , no icterus, no photophobia . ENT : normal of hearing , normal oropharynx , no Thrush . 3- Respiratory : Chest clear to auscultations Bilaterally , no wheezing , no Rhonchi . 4- Cardiovascular : regular rate and rhythem , S1 , S2 , no S3 , no S4. 5- Gastrointestinal : abdomen soft no tenderness , bowel sounds positive all four quadrents , no organomegally . 6- Genitourinary : Defferred . 7- neurologic: Cranial nerve II to XII intact , no focal neurological deffecit . 8- Psychatric: alert , oriented X 3 , appropriate affect , intact judgment and insight . 9- Lymphatic : no Lymphadenopathy . 10- Musculoskeltal : exams of the cervical spine = motor strength normal bilateral upper extremities facet loading test cervical area positive. Tenderness over the left elbow area and the medial aspect Exam of the thoracic spine showed patient had = severe pain with the flexion and rotation of the torso Severe tenderness over the upper thoracic spine around T3 to T5 area exams of the Lumber spine =motor strength lower extremities ,thigh and legs .5/5 . lumber facet Loading Test positive Assessment and plan = Chronic low back pain secondary to lumbar degenerative disc disease , lumbar spondylosis with facet arthropathy without myelopathy Neck pain secondary to cervical spondylosis, and failed back surgery syndrome cervical area. Upper back pain secondary to compression fractures thoracic spine chronic and current use of high-risk medication (Opioids). The patient was counseled about risk of opioid use, psychological risk associated with opioids and was orally counseled to not overuse , divert,or sell dictations to take medications as prescribed only , and to restore medication in safe location , the patient counseled against driving while using narcotic medications , and also not to use alcohol or any illicit recreational drugs, patient's verbalized understanding that the lack of compliance will result in failure to renew narcotic prescription and possible discharge from the clinic - diagnoses, prognosis, and treatment options including but not limited to physical therapy, surgical interventions, interventional therapies , and medication management including narcotics and adjuvant medication were discussed with the patient and all the questions answered Prescription refill for [place] 10/325 every 6 hours 120 with one refill, Zanaflex 4 mg 3 times a day dispense 90 with 1 refill Increase Lyrica to 100 mg 3 times a day ,dispence 90 with 1 refill, ( the plan was to decrease the [place] frome 90 tab to 60 , but because patient had a new compression fracture in the thoracic spine, I will increase the frequency of norco to every 6 hours MAPS reviewed and it was appropriate, urine drug screen was reviewed and it was appropriate, he will follow up with the pain clinic in 2 months Next visit we will order urine drug screen PQRS Measure Charge Sheet Measure #130: Documentation of Current Meds in Medical Chart: Patient's medications documented in chart Measure #226: Tobacco Use: Screen & Cessation Intervention: Pt not a tobacco user Measure #111: Pneumonia Vaccination: Pneumococcal vaccine administered or previously received Measure #47: Advance Care Plan: Advance care planning discussed & documented, pt chose/unable to give Measure #412: Opioid Treatment Agreement: Documented signed opioid trtmnt agreemnt min once during opioid trtmnt Measure #408: Opioid Therapy Follow-up Evaluation: Patient had f/u eval minimum every 3 months during opioid therapy Measure #317: Preventitive Care & Scrn High Bld Press & F/U: Normal blood pressure, f/u not required Measure #128: Body Mass Index (BMI) Screening & Follow-up: BMI documented ABOVE normal parameters - f/u documented Measure #131: Pain Assessment & Follow-up: Pain positive & plan documented, Follow-up scheduled Measure #431: Unhealthy Alcohol Use Preventative Care & Scrn: Patient not identified as an unhealthy alcohol user Objective - Vital Signs Vital signs: Vital Signs Temp Pulse 88 01/04/19 13:26 Resp 18 01/04/19 13:26 BP 153/89 01/04/19 13:26 Pulse Ox 94 L 01/04/19 13:26 Intake & Output 01/03/19 01/04/19 01/04/19 18:59 06:59 18:59 Weight 90.718 kg
== END ==
LOC: PNWHC3 12:59
PROVIDERS: ATTEND Specialist
DX: G89.29 Other chronic pain (principal); M51.36 Other intervertebral disc degeneration, lumbar region; M47.816 Spondylosis without myelopathy or radiculopathy, lumbar region; M47.812 Spondylosis without myelopathy or radiculopathy, cervical region; M46.96 Unspecified inflammatory spondylopathy, lumbar region; M96.1 Postlaminectomy syndrome, not elsewhere classified; S22.009A Unspecified fracture of unspecified thoracic vertebra, initial encounter for closed fracture; Z79.891 Long term (current) use of opiate analgesic; Z79.899 Other long term (current) drug therapy
CPT/HCPCS: 99211

== ENCOUNTER → 2019-01-17 | Outpatient (CLI) | payer OTHER ==
--- NOTE | 2019-01-17 14:05 | US ---
EXAMINATION TYPE: US carotid duplex BILAT DATE OF EXAM: 01/17/2019 COMPARISON: 12/02/2017 CLINICAL HISTORY: G44.1, Vascular [id number]. Patient states having headaches. No hx of TIA or s trokes. HTN. EXAM MEASUREMENTS: RIGHT: Peak Systolic Velocity (PSV) cm/sec ----- Right CCA: 116.0 ----- Right ICA: 77.4 ----- Right ECA: 127.0 ICA/CCA ratio: 0.7 RIGHT: End Diastole cm/sec ----- Right CCA: 27.9 ----- Right ICA: 32.3 ----- Right ECA: 12.2 LEFT: Peak Systolic Velocity (PSV) cm/sec ----- Left CCA: 90.4 ----- Left ICA: 74.7 ----- Left ECA: 122.0 ICA/CCA ratio: 0.8 LEFT: End Diastole cm/sec ----- Left CCA: 15.6 ----- Left ICA: 22.6 ----- Left ECA: 10.2 VERTEBRALS (direction of flow): Right Vertebral: Antegrade Left Vertebral: Antegrade Rhythm: Normal No significant stenosis. No plaque visualized. No wall thickening. IMPRESSION: Mild degree of grayscale atheromatous plaquing with no sonographically evident hemodynamically signif icant stenosis within either visualized carotid arterial system. Criteria for Assigning % of Stenosis / Diameter reduction (Estimation based on the indirect measurements of the internal carotid artery velocities (ICA PSV). 1. Normal (no stenosis)=ICA PSV < 125 cm/s: ratio < 2.0: ICA EDV<40 cm/s. 2. Less than 50% stenosis=ICA PSV < 125 cm/s: ratio < 2.0: ICA EDV<40 cm/s. 3. 50 to 69% stenosis=ICA PSV of 125 to 230 cm/s: ration 2.0 ? 4.0: ICA EDV 40-100 cm/s. 4. Greater than 70% stenosis to near occlusion= ICA PSV > 230 cm/s: ratio > 4.0: ICA EDV > 100 cm/s. 5. Near occlusion= ICA PSV velocities may be low or undetectable: variable ratio and ICA EDV. 6. Total occlusion=unable to detect flow.
== END ==
LOC: RADUSWWP 12:55
PROVIDERS: ATTEND Psychiatry & Neurology Neurology
DX: I70.90 Unspecified atherosclerosis (principal)
CPT/HCPCS: 93880

== ENCOUNTER → 2019-01-30 | Outpatient (CLI) | payer OTHER ==
--- NOTE | 2019-01-31 12:50 | ECHOF ---
Referral Reason:Z86.73 history of stroke MEASUREMENTS -------- HEIGHT: 165.1 cm WEIGHT: 89.4 kg BP: 98/6 RVIDd: 3.0 cm (< 3.3) IVSd: 1.3 cm (0.6 - 1.1) LVIDd: 4.2 cm (3.9 - 5.3) LVPWd: 1.4 cm (0.6 - 1.1) IVSs: 1.9 cm LVIDs: 2.5 cm LVPWs: 1.7 cm LA Diam: 2.7 cm (2.7 - 3.8) LAESV Index (A-L): 15.25 ml/m Ao Diam: 3.0 cm (2.0 - 3.7) AV Cusp: 1.9 cm (1.5 - 2.6) MV EXCURSION: 18.829 mm (> 18.000) MV EF SLOPE: 100 mm/s (70 - 150) EPSS: 0.5 cm MV E Odilon: 0.71 m/s MV DecT: 223 ms MV A Odilon: 0.81 m/s MV E/A Ratio: 0.87 FINDINGS -------- Sinus rhythm. This was a technically adequate study. The left ventricular size is normal. There is moderate concentric left ventricular hypertrophy. O verall left ventricular systolic function is normal with, an EF between 60 - 65 %. The right ventricle is normal in size. Normal LA size by volume 22+/-6 ml/m2. The right atrium is normal in size. The aortic valve is trileaflet and appears structurally normal. The mitral valve is normal. The tricuspid valve appears structurally normal. There is no pulmonic regurgitation present. The aortic root size is normal. Normal inferior vena cava with normal inspiratory collapse consistent with estimated right atrial pre ssure of 5 mmHg. There is no pericardial effusion. CONCLUSIONS -------- 1. Sinus rhythm. 2. This was a technically adequate study. 3. The left ventricular size is normal. 4. There is moderate concentric left ventricular hypertrophy. 5. Overall left ventricular systolic function is normal with, an EF between 60 - 65 %. 6. The right ventricle is normal in size. 7. Normal LA size by volume 22+/-6 ml/m2. 8. The right atrium is normal in size. 9. The aortic valve is trileaflet and appears structurally normal. 10. The mitral valve is normal. 11. The tricuspid valve appears structurally normal. 12. There is no pulmonic regurgitation present. 13. The aortic root size is normal. 14. Normal inferior vena cava with normal inspiratory collapse consistent with estimated right atrial pressure of 5 mmHg. 15. There is no pericardial effusion. 4[employer] TEACHER: Vandana Yin RDCS
== END | disposition home or self-care (01) ==
LOC: RADECHMAIN 14:05
PROVIDERS: ATTEND Psychiatry & Neurology Neurology
DX: I51.7 Cardiomegaly (principal); M50.20 Other cervical disc displacement, unspecified cervical region; Z86.73 Personal history of transient ischemic attack (TIA), and cerebral infarction without residual deficits
CPT/HCPCS: 93306

== ENCOUNTER → 2019-03-01 | Outpatient (CLI) | payer OTHER ==
[2019-03-01 15:05] VITALS: BP 153/97; PULSE 90; RESP 18
--- NOTE | 2019-03-01 20:51 | P.PAINPG ---
Subjective Progress Note Date: 03/01/19 This is follow-up visit for this patient with a history of severe and chronic neck pain secondary to cervical spondylosis, failed back surgery syndrome and cervical area , lumbar spondylosis with facet arthropathy,,We have done interventional pain procedures cervical medial branch block , and patient had complications during the procedure was not completed, Patients currently on [place] 10/325 every 6 hours , Lyrica 100 mg 3 times a day, Zanaflex 4 mg 3 times a day, Motrin 800 mg 3 times a day Patient denies any side effects of the medication, denies excessive drowsiness or sleepiness, denies suicidal ideation, and reports that the current pain medication is helping to control the pain ,and improve activity of daily living ,Patient denies any motor or sensory deficit , patient denies any fever or night sweats, denies any change in the bowel movements or urination Current patient complaining of SEVERE upper and mid back pains , started after he fell recently and patient had a new MRI of the thoracic spine done which showed patient had compression fracture of T3 , and multilevel bulging disc disease in the thoracic spine T2, T3, T4 Physical Examinations : 1-Constitutional : Cooperative , not in acute distress . 2-HEENT : nech ; supple , no Lymphadenopathy , no Thyromegaly , normal thyroid size . eyes : no ptosis , no icterus, no photophobia . ENT : normal of hearing , normal oropharynx , no Thrush . 3- Respiratory : Chest clear to auscultations Bilaterally , no wheezing , no Rhonchi . 4- Cardiovascular : regular rate and rhythem , S1 , S2 , no S3 , no S4. 5- Gastrointestinal : abdomen soft no tenderness , bowel sounds positive all four quadrents , no organomegally . 6- Genitourinary : Defferred . 7- neurologic: Cranial nerve II to XII intact , no focal neurological deffecit . 8- Psychatric: alert , oriented X 3 , appropriate affect , intact judgment and insight . 9- Lymphatic : no Lymphadenopathy . 10- Musculoskeltal : exams of the cervical spine = motor strength normal bilateral upper extremities Patient had cervical collar Exam of the thoracic spine showed patient had = severe pain with the flexion and rotation of the torso Severe tenderness over the upper thoracic spine around T3 to T5 area exams of the Lumber spine =motor strength lower extremities ,thigh and legs .5/5 . lumber facet Loading Test positive Assessment and plan = Chronic low back pain secondary to lumbar degenerative disc disease , lumbar spondylosis with facet arthropathy without myelopathy Neck pain secondary to cervical spondylosis, and failed back surgery syndrome cervical area. Upper back pain secondary to compression fractures thoracic spine chronic and current use of high-risk medication (Opioids). The patient was counseled about risk of opioid use, psychological risk associated with opioids and was orally counseled to not overuse , divert,or sell dictations to take medications as prescribed only , and to restore medication in safe location , the patient counseled against driving while using narcotic medications, and also not to use alcohol or any illicit recreational drugs, patient's verbalized understanding that the lack of compliance will result in failure to renew narcotic prescription and possible discharge from the clinic - diagnoses, prognosis, and treatment options including but not limited to physical therapy, surgical interventions, interventional therapies , and medication management including narcotics and adjuvant medication were discussed with the patient and all the questions answered Prescription refill for [place] 10/325 every 6 hours 120 with one refill, Zanaflex 4 mg 3 times a day dispense 90 with 1 refill Increase Lyrica to 100 mg 3 times a day MAPS reviewed and it was appropriate, urine drug screen was reviewed and it was appropriate, he will follow up with the pain clinic in 2 months Urine drug screen ordered today Objective - Vital Signs Vital signs: Vital Signs Temp Pulse 90 03/01/19 15:00 Resp 18 03/01/19 15:00 BP 153/97 03/01/19 15:00 Pulse Ox 94 L 03/01/19 15:00 Intake & Output 03/01/19 03/01/19 03/02/19 06:59 18:59 06:59 Weight 90.718 kg PQRS Measure Charge Sheet Measure #130: Documentation of Current Meds in Medical Chart: Patient's medications documented in chart Measure #226: Tobacco Use: Screen & Cessation Intervention: Pt screened for tobacco use AND intervention given Measure #111: Pneumonia Vaccination: Pneumococcal vaccine administered or previously received Measure #47: Advance Care Plan: Advance care planning discussed & documented, pt chose/unable to give Measure #412: Opioid Treatment Agreement: Documented signed opioid trtmnt agreemnt min once during opioid trtmnt Measure #408: Opioid Therapy Follow-up Evaluation: Patient had f/u eval minimum every 3 months during opioid therapy Measure #317: Preventitive Care & Scrn High Bld Press & F/U: Pre-hypertensive or hypertensive BP documented, pt will f/u with PCP Measure #128: Body Mass Index (BMI) Screening & Follow-up: BMI documented ABOVE normal parameters - f/u documented Measure #131: Pain Assessment & Follow-up: Pain positive & plan documented, Follow-up scheduled Measure #431: Unhealthy Alcohol Use Preventative Care & Scrn: Patient not id entified as an unhealthy alcohol user PQRS Narrative: Smoking Status Current every day smoker Do You Want the Pneumonia Vaccine Up to Date Vaccine AT THIS TIME? Narcotic Agreement Date Signed 08/17/18 Blood Pressure 153/97 Pain Intensity [Bilateral 8 Posterior Neck] Scale Used Numeric (1 - 10) Hx Alcohol Use (MH) No Home Medications: Ambulatory Orders Atorvastatin [Lipitor] 20 mg PO HS 04/16/14 Ranitidine HCl [Zantac] 150 mg PO BID PRN 04/16/14 Ergocalciferol [Vitamin D2 (DRISDOL)] 50,000 unit PO Q30D 07/09/14 DULoxetine HCL [Cymbalta] 60 mg PO DAILY 12/31/14 Tamsulosin HCl [Flomax] 0.4 mg PO HS 12/31/14 Albuterol Inhaler [Ventolin Hfa Inhaler] 2 puff INHALATION RT-Q4H PRN 11/17/18 Albuterol Nebulized [Ventolin Nebulized] 2.5 mg INHALATION RT-BID 11/17/18 Beclomethasone Dipropionate [Qvar 80 mcg] 2 puff INHALATION RT-BID 11/17/18 Cetirizine HCl [Zyrtec] 10 mg PO DAILY PRN 11/17/18 Ipratropium [place] [Atrovent Hfa] 2 puff INHALATION RT-BID 11/17/18 Levothyroxine Sodium [Synthroid] 88 mcg PO DAILY 11/17/18 Losartan Potassium 100 mg PO DAILY 11/17/18 Lurasidone HCl [Latuda] 60 mg PO DAILY 11/17/18 Testosterone Cypionate [Depo-Testosterone] 200 mg IM Q14D 11/17/18 metFORMIN HCL 1,000 mg PO BID 11/17/18 traZODone HCL 100 mg PO HS 11/17/18 HYDROcodone/APAP 10-325MG [[place] 10-325] 1 tab PO Q6HR PRN 30 Days #120 tab 01/04/19 Hydrocodone/Acetaminophen [[place] 10-325] 1 tab PO Q6H PRN 30 Days #120 tab 01/04/19 Ibuprofen [Motrin] 800 mg PO BID #60 tab 01/04/19 Metoprolol Succinate 200 mg PO DAILY 01/04/19 Pregabalin [Lyrica] 100 mg PO TID #90 cap 01/04/19 tiZANidine [Zanaflex] 4 mg PO TID PRN #90 tab 01/04/19 Controlled Substance Measures - Controlled Substance Measures Is patient prescribed a controlled substance at discharge?: Yes When asked, does pt state using other controlled substances?: No If prescribed controlled substance>3 days was MAPS reviewed?: Yes If Rx opioid, was Start Talking consent form obtained?: Yes If opioid is for acute pain is fill amount 7 days or less?: No Was information provided regarding opioid addiction?: Yes
== END ==
LOC: PNWHC3 14:25
PROVIDERS: ATTEND Specialist
DX: G89.29 Other chronic pain (principal); M47.812 Spondylosis without myelopathy or radiculopathy, cervical region; M96.1 Postlaminectomy syndrome, not elsewhere classified; M51.36 Other intervertebral disc degeneration, lumbar region; M47.816 Spondylosis without myelopathy or radiculopathy, lumbar region; M46.86 Other specified inflammatory spondylopathies, lumbar region; F11.90 Opioid use, unspecified, uncomplicated; F17.200 Nicotine dependence, unspecified, uncomplicated; Z79.899 Other long term (current) drug therapy; Z79.1 Long term (current) use of non-steroidal anti-inflammatories (NSAID); Z71.89 Other specified counseling; Z71.6 Tobacco abuse counseling
CPT/HCPCS: 80307; G0482; G0463; 99211

== ENCOUNTER → 2019-04-27 | Outpatient (CLI) | payer OTHER ==
[2019-04-27 10:40] VITALS: BP 148/90; PULSE 91; RESP 16
--- NOTE | 2019-04-27 15:04 | P.PAINPG ---
Subjective Progress Note Date: 04/27/19 This is follow-up visit for this patient with a history of severe and chronic neck pain secondary to cervical spondylosis, failed back surgery syndrome and cervical area , lumbar spondylosis with facet arthropathy,,We have done interventional pain procedures cervical medial branch block , and patient had complications during the procedure was not completed, Patients currently on [place] 10/325 every 6 hours , Lyrica 100 mg 3 times a day, Zanaflex 4 mg 3 times a day, Motrin 800 mg 3 times a day Patient denies any side effects of the medication, denies excessive drowsiness or sleepiness, denies suicidal ideation, and reports that the current pain medication is helping to control the pain ,and improve activity of daily living ,Patient denies any motor or sensory deficit , patient denies any fever or night sweats, denies any change in the bowel movements or urination Current patient complaining of SEVERE upper and mid back pains , started after he fell recently and patient had a new MRI of the thoracic spine done which showed patient had compression fracture of T3 , and multilevel bulging disc disease in the thoracic spine T2, T3, T4 Physical Examinations : -Constitutional : Cooperative , not in acute distress . -HEENT : nech ; supple , no Lymphadenopathy , no Thyromegaly , normal thyroid size . eyes : no ptosis , no icterus, no photophobia . ENT : normal of hearing , normal oropharynx , no Thrush . . - Musculoskeltal : exams of the cervical spine = motor strength normal bilateral upper extremities Cervical facet positive bilaterally Exam of the thoracic spine showed patient had = severe pain with the flexion and rotation of the torso Severe tenderness over the upper thoracic spine around T3 to T5 area exams of the Lumber spine =motor strength lower extremities ,thigh and legs .5/5 . lumber facet Loading Test positive Assessment and plan = Chronic low back pain secondary to lumbar degenerative disc disease , lumbar spondylosis with facet arthropathy without myelopathy Neck pain secondary to cervical spondylosis, and failed back surgery syndrome cervical area. Upper back pain secondary to compression fractures thoracic spine chronic and current use of high-risk medication (Opioids). The patient was counseled about risk of opioid use, psychological risk associated with opioids and was orally counseled to not overuse , divert,or sell dictations to take medications as prescribed only , and to restore medication in safe location , the patient counseled against driving while using narcotic medications, and also not to use alcohol or any illicit recreational drugs, patient's verbalized understanding that the lack of compliance will result in failure to renew narcotic prescription and possible discharge from the clinic - diagnoses, prognosis, and treatment options including but not limited to physical therapy, surgical interventions, interventional therapies , and medication management including narcotics and adjuvant medication were discussed with the patient and all the questions answered Prescription refill for [place] 10/325 every 6 hours 120 with one refill, Zanaflex 4 mg 3 times a day dispense 90 with 1 refill Increase Lyrica to 100 mg 3 times a day MAPS reviewed and it was appropriate, urine drug screen was reviewed and it was appropriate, he will follow up with the pain clinic in 2 months Urine drug screen reviewed and it was appropriate Objective - Vital Signs Vital signs: Vital Signs Temp Pulse 91 04/27/19 10:30 Resp 16 04/27/19 10:30 BP 148/90 04/27/19 10:30 Pulse Ox 95 04/27/19 10:30 Intake & Output 04/26/19 04/27/19 04/27/19 18:59 06:59 18:59 Weight 86.183 kg PQRS Measure Charge Sheet Measure #130: Documentation of Current Meds in Medical Chart: Patient's medications documented in chart Measure #226: Tobacco Use: Screen & Cessation Intervention: Pt not a tobacco us er Measure #111: Pneumonia Vaccination: Pneumococcal vaccine NOT administered or previously given Measure #47: Advance Care Plan: Advance care planning discussed & documented, pt chose/unable to give Measure #412: Opioid Treatment Agreement: Documented signed opioid trtmnt agreemnt min once during opioid trtmnt Measure #408: Opioid Therapy Follow-up Evaluation: Patient had f/u eval minimum every 3 months during opioid therapy Measure #317: Preventitive Care & Scrn High Bld Press & F/U: Pre-hypertensive or hypertensive BP documented, pt will f/u with PCP Measure #128: Body Mass Index (BMI) Screening & Follow-up: BMI documented ABOVE normal parameters - f/u documented Measure #131: Pain Assessment & Follow-up: Pain positive & plan documented, Follow-up scheduled Measure #431: Unhealthy Alcohol Use Preventative Care & Scrn: Patient not identified as an unhealthy alcohol user PQRS Narrative: Smoking Status Current every day smoker Narcotic Agreement Date Signed 08/17/18 Blood Pressure 148/90 Pain Intensity [Back] 8 Scale Used Numeric (1 - 10) Hx Alcohol Use (MH) No Home Medications: Ambulatory Orders Atorvastatin [Lipitor] 20 mg PO HS 04/16/14 Ranitidine HCl [Zantac] 150 mg PO BID PRN 04/16/14 Ergocalciferol [Vitamin D2 (DRISDOL)] 50,000 unit PO Q30D 07/09/14 DULoxetine HCL [Cymbalta] 60 mg PO DAILY 12/31/14 Tamsulosin HCl [Flomax] 0.4 mg PO HS 12/31/14 Albuterol Inhaler [Ventolin Hfa Inhaler] 2 puff INHALATION RT-Q4H PRN 11/17/18 Albuterol Nebulized [Ventolin Nebulized] 2.5 mg INHALATION RT-BID 11/17/18 Beclomethasone Dipropionate [Qvar 80 mcg] 2 puff INHALATION RT-BID 11/17/18 Cetirizine HCl [Zyrtec] 10 mg PO DAILY PRN 11/17/18 Ipratropium [place] [Atrovent Hfa] 2 puff INHALATION RT-BID 11/17/18 Levothyroxine Sodium [Synthroid] 88 mcg PO DAILY 11/17/18 Losartan Potassium 100 mg PO DAILY 11/17/18 Lurasidone HCl [Latuda] 60 mg PO DAILY 11/17/18 Testosterone Cypionate [Depo-Testosterone] 200 mg IM Q14D 11/17/18 metFORMIN HCL 1,000 mg PO BID 11/17/18 traZODone HCL 100 mg PO HS 11/17/18 Metoprolol Succinate 200 mg PO DAILY 01/04/19 HYDROcodone/APAP 10-325MG [[place] 10-325] 1 tab PO Q6HR PRN 30 Days #120 tab 04/27/19 Hydrocodone/Acetaminophen [[place] 10-325] 1 tab PO Q6H PRN 30 Days #120 tab 04/27/19 Ibuprofen [Motrin] 800 mg PO BID #60 tab 04/27/19 Pregabalin [Lyrica] 100 mg PO TID #90 cap 04/27/19 tiZANidine [Zanaflex] 4 mg PO TID PRN #90 tab 04/27/19 Controlled Substance Measures - Controlled Substance Measures Is patient prescribed a controlled substance at discharge?: Yes When asked, does pt state using other controlled substances?: No If prescribed controlled substance>3 days was MAPS reviewed?: Yes If Rx opioid, was Start Talking consent form obtained?: Yes If opioid is for acute pain is fill amount 7 days or less?: No Was information provided regarding opioid addiction?: Yes
== END ==
LOC: PNWHC3 10:14
PROVIDERS: ATTEND Specialist
DX: G89.29 Other chronic pain (principal); M51.36 Other intervertebral disc degeneration, lumbar region; M47.816 Spondylosis without myelopathy or radiculopathy, lumbar region; M46.96 Unspecified inflammatory spondylopathy, lumbar region; M47.812 Spondylosis without myelopathy or radiculopathy, cervical region; M96.1 Postlaminectomy syndrome, not elsewhere classified; S22.009A Unspecified fracture of unspecified thoracic vertebra, initial encounter for closed fracture; F17.200 Nicotine dependence, unspecified, uncomplicated; Z79.899 Other long term (current) drug therapy; Z79.84 Long term (current) use of oral hypoglycemic drugs; Z79.891 Long term (current) use of opiate analgesic; Z79.1 Long term (current) use of non-steroidal anti-inflammatories (NSAID)
CPT/HCPCS: 99211

== ENCOUNTER → 2019-06-01 | Outpatient (CLI) | payer OTHER ==
--- NOTE | 2019-06-01 15:31 | XR ---
EXAMINATION TYPE: XR chest 2V DATE OF EXAM: 06/01/2019 COMPARISON: NONE HISTORY: History of CVA and hypertension. E11.9, I 10 TECHNIQUE: Frontal and lateral views of the chest are obtained. FINDINGS: There is no focal air space opacity, pleural effusion, or pneumothorax seen. The cardiac silhouette size is within normal limits. The osseous structures are intact. Cervical fusion device is seen on the frontal view. IMPRESSION: No acute cardiopulmonary process.
== END | disposition home or self-care (01) ==
LOC: RADXRMAIN 14:43
PROVIDERS: ATTEND Internal Medicine Hematology & Oncology
DX: I10 Essential (primary) hypertension (principal); E11.9 Type 2 diabetes mellitus without complications; I67.89 Other cerebrovascular disease; E78.00 Pure hypercholesterolemia, unspecified
CPT/HCPCS: 71046

== ENCOUNTER → 2019-07-06 | Outpatient (CLI) | payer OTHER ==
[2019-07-06 14:23] VITALS: BP 118/82; PULSE 95; RESP 16
--- NOTE | 2019-07-11 10:53 | P.PAINPG ---
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 In the past, we have performed interventional pain procedures- cervical medial branch block however the patient developed complications during the procedure and the procedure was aborted. Patients currently on [place] 10/325 every 6 hours , Lyrica 100 mg 3 times a day, Zanaflex 4 mg 3 times a day, Motrin 800 mg 3 times a day Patient denies any side effects of the medication, denies excessive drowsiness or sleepiness, denies suicidal ideation, and reports that the current pain medication is helping to control the pain and improve activity of daily living. Patient denies any motor or sensory deficit , patient denies any fever or night sweats, denies any change in the bowel movements or urination. He recently underwent an umbilical hernia repair (about 1 week ago) and is recovering from this. Also, he fell in November 2018 and was diagnosed with compression fracture of T3 and still has pain in his neck and shoulders. Physical exam: Vital Signs: Reviewed in EMR GENERAL: Well appearing, in no acute distress PSYCH: Mood and affect is appropriate. Awake, alert, and oriented SKIN: Skin color, texture, turgor normal, no rashes or lesions HEENT: Normocephalic, atraumatic. EOM intact CV: No pedal edema RESP: Respirations are unlabored, no audible wheezing GI: Abdomen non-distended MUSCULOSKELETAL: Bilateral upper extremity strength is normal and symmetric. No atrophy or tone abnormalities are noted. Neck: tenderness to palpation over the cervical paraspinous muscles. Spurling negative, Maldonado's sign negative. No pain with neck flexion, extension, or lateral flexion. No obvious deformity or signs of trauma. Normal cervical lordotic curve and normal cervical spine range of motion Extremities: Peripheral joint ROM is full and pain free without obvious instability or laxity in all four extremities. No edema or skin discolorations noted. Gait: Gait is normal NEUR: Bilateral upper extremity coordination and muscle stretch reflexes are physiologic and symmetric. No loss of sensation is noted. Cranial nerves are grossly intact. Assessment and plan = Chronic low back pain secondary to lumbar degenerative disc disease , lumbar spondylosis with facet arthropathy without myelopathy Neck pain secondary to cervical spondylosis, and failed back surgery syndrome cervical area. Upper back pain secondary to compression fractures thoracic spine chronic and current use of high-risk medication (Opioids). The patient was counseled about risk of opioid use, psychological risk associated with opioids and was orally counseled to not overuse , divert,or sell dictations to take medications as prescribed only , and to restore medication in safe location , the patient counseled against driving while using narcotic medications, and also not to use alcohol or any illicit recreational drugs, patient's verbalized understanding that the lack of compliance will result in failure to renew narcotic prescription and possible discharge from the clinic. We had a lengthy discussion regarding opioid dose reduction and patient is amenable to this. We will start at next visit as pt recently underwent umbilical hernia surgery and is having acute pain related to this. - diagnoses, prognosis, and treatment options including but not limited to physical therapy, surgical interventions, interventional therapies , and medication management including narcotics and adjuvant medication were discussed with the patient and all the questions answered Prescription refill for [place] 10/325 every 6 hours 120 with one refill, Zanaflex 4 mg 3 times a day dispense 90 with 1 refill, Lyrica to 100 mg 3 times a day with one refill MAPS reviewed and it was appropriate, he will follow up with the pain clinic in 2 months Advised to quit smoking and perform daily HEP. Objective - Vital Signs Vital signs: Vital Signs Temp Pulse 95 07/06/19 14:11 Resp 16 07/06/19 14:11 BP 118/82 07/06/19 14:11 Pulse Ox 96 07/06/19 14:11 PQRS Measure Charge Sheet Measure #130: Documentation of Current Meds in Medical Chart: Patient's medications documented in chart Measure #226: Tobacco Use: Screen & Cessation Intervention: Pt screened for tobacco use AND intervention given Measure #111: Pneumonia Vaccination: Pneumococcal vaccine NOT administered or previously given Measure #47: Advance Care Plan: Advance care planning discussed & documented, pt chose/unable to give Measure #412: Opioid Treatment Agreement: Documented signed opioid trtmnt agreemnt min once during opioid trtmnt Measure #408: Opioid Therapy Follow-up Evaluation: Patient had f/u eval minimum every 3 months during opioid therapy Measure #317: Preventitive Care & Scrn High Bld Press & F/U: Normal blood pressure, f/u not required Measure #128: Body Mass Index (BMI) Screening & Follow-up: BMI documented ABOVE normal parameters - f/u documented Measure #131: Pain Assessment & Follow-up: Pain positive & plan documented, Follow-up scheduled Measure #431: Unhealthy Alcohol Use Preventative Care & Scrn: Patient not identified as an unhealthy alcohol user PQRS Narrative: Smoking Status Current every day smoker Narcotic Agreement Date Signed 08/17/18 Blood Pressure 118/82 Pain Intensity [Generalized] 7 Scale Used Numeric (1 - 10) Hx Alcohol Use (MH) No Home Medications: Ambulatory Orders Atorvastatin [Lipitor] 20 mg PO HS 04/16/14 Ranitidine HCl [Zantac] 150 mg PO BID PRN 04/16/14 Ergocalciferol [Vitamin D2 (DRISDOL)] 50,000 unit PO Q30D 07/09/14 DULoxetine HCL [Cymbalta] 60 mg PO DAILY 12/31/14 Tamsulosin HCl [Flomax] 0.4 mg PO HS 12/31/14 Albuterol Inhaler [Ventolin Hfa Inhaler] 2 puff INHALATION RT-Q4H PRN 11/17/18 Albuterol Nebulized [Ventolin Nebulized] 2.5 mg INHALATION RT-BID 11/17/18 Beclomethasone Dipropionate [Qvar 80 mcg] 2 puff INHALATION RT-BID 11/17/18 Cetirizine HCl [Zyrtec] 10 mg PO DAILY PRN 11/17/18 Ipratropium [place] [Atrovent Hfa] 2 puff INHALATION RT-BID 11/17/18 Levothyroxine Sodium [Synthroid] 88 mcg PO DAILY 11/17/18 Losartan Potassium 100 mg PO DAILY 11/17/18 Lurasidone HCl [Latuda] 60 mg PO DAILY 11/17/18 Testosterone Cypionate [Depo-Testosterone] 200 mg IM Q14D 11/17/18 metFORMIN HCL 1,000 mg PO BID 11/17/18 traZODone HCL 100 mg PO HS 11/17/18 Metoprolol Succinate 200 mg PO DAILY 01/04/19 Clopidogrel [Plavix] 1 tab PO DAILY 07/06/19 Ferrous Sulfate [Feosol] 325 mg PO BID 07/06/19 HYDROcodone/APAP 10-325MG [[place] 10-325] 1 tab PO Q6HR PRN 30 Days #120 tab 07/06/19 Hydrocodone/Acetaminophen [[place] 10-325] 1 tab PO Q6H PRN 30 Days #120 tab 07/06/19 Ibuprofen [Motrin] 800 mg PO BID #60 tab 07/06/19 Omeprazole 1 tab PO DAILY 07/06/19 Pregabalin [Lyrica] 100 mg PO TID #90 cap 07/06/19 tiZANidine [Zanaflex] 4 mg PO TID PRN #90 tab 07/06/19 Controlled Substance Measures - Controlled Substance Measures Is patient prescribed a controlled substance at discharge?: Yes When asked, does pt state using other controlled substances?: No If prescribed controlled substance>3 days was MAPS reviewed?: Yes If Rx opioid, was Start Talking consent form obtained?: Yes If opioid is for acute pain is fill amount 7 days or less?: No Was information provided regarding opioid addiction?: Yes
== END | disposition home or self-care (01) ==
LOC: PNWHC3 13:14
PROVIDERS: ATTEND Anesthesiology
DX: M47.812 Spondylosis without myelopathy or radiculopathy, cervical region (principal); M51.36 Other intervertebral disc degeneration, lumbar region; M47.816 Spondylosis without myelopathy or radiculopathy, lumbar region; M46.96 Unspecified inflammatory spondylopathy, lumbar region; M96.1 Postlaminectomy syndrome, not elsewhere classified; G89.29 Other chronic pain; Z79.891 Long term (current) use of opiate analgesic; Z79.899 Other long term (current) drug therapy; F17.200 Nicotine dependence, unspecified, uncomplicated; Z79.84 Long term (current) use of oral hypoglycemic drugs; Z79.52 Long term (current) use of systemic steroids
CPT/HCPCS: 99211

== ENCOUNTER → 2019-08-31 | Outpatient (CLI) | payer OTHER ==
[2019-08-31 12:38] VITALS: BP 123/84; PULSE 79; RESP 16
--- NOTE | 2019-08-31 14:47 | P.PAINPG ---
Subjective Progress Note Date: 08/31/19 This is follow-up visit for this patient with a history of severe and chronic neck pain secondary to cervical spondylosis, failed back surgery syndrome and cervical area , lumbar spondylosis with facet arthropathy,,We have done interventional pain procedures cervical medial branch block , and patient had complications during the procedure was not completed, Patients currently on [place] 10/325 every 6 hours , Lyrica 100 mg 3 times a day, Zanaflex 4 mg 3 times a day, Motrin 800 mg 2 times a day when necessary Patient denies any side effects of the medication, denies excessive drowsiness or sleepiness, denies suicidal ideation, and reports that the current pain medication is helping to control the pain ,and improve activity of daily living ,Patient denies any motor or sensory deficit , patient denies any fever or night sweats, denies any change in the bowel movements or urination Current patient complaining of SEVERE upper and mid back pains , she reported that he had the diarrhea over the last few days, and he is reported that he had some anemia and his primary care a started him on iron Objective - Vital Signs Vital signs: Vital Signs Temp Pulse 79 08/31/19 12:32 Resp 16 08/31/19 12:32 BP 123/84 08/31/19 12:32 Pulse Ox 96 08/31/19 12:32 Intake & Output 08/30/19 08/31/19 08/31/19 18:59 06:59 18:59 Weight 87.997 kg - Exam -Constitutional : Cooperative , not in acute distress . -HEENT : nech ; supple , no Lymphadenopathy , no Thyromegaly , normal thyroid size . eyes : no ptosis , no icterus, no photophobia . ENT : normal of hearing , normal oropharynx , no Thrush . . - Musculoskeltal : exams of the cervical spine = motor strength normal bilateral upper extremities Cervical facet positive bilaterally Exam of the thoracic spine showed patient had = severe pain with the flexion and rotation of the torso Severe tenderness over the upper thoracic spine around T3 to T5 area exams of the Lumber spine =motor strength lower extremities ,thigh and legs .5/5 . lumber facet Loading Test positive Assessment and Plan Plan: Assessment and plan= chronic low back pain secondary to lumbar degenerative disc disease , lumbar spondylosis with lumbar facet arthropathy . Thoracic compression fractures thoracic spondylosis chronic and current use of high-risk medication (opioids) Patient denies any side effects of the current pain medication and the current treatment/medication helping the patient to do activity of daily living , Diagnoses, prognosis, treatment options, including but not limited to physical therapy, medication management, interventional therapies, and surgery, were discussed with the patient All the questions answered The narcotic consent was signed and patient agreed and understood the side effects and complications of opioid treatment. Patient signed the narcotic agreement, and was orally counseled, not to overuse, not to abuse, not to Divert , not tp sell pain medication, and to take it as prescribed only, Patient was counseled not to drive or operate heavy equipment while using narcotic medication, and advised not to use alcohol or any Illicit drugs while using the narcotis. understanding that lack of compliance with any of the above instructions, will likely to cause discharge from, the pain service, not to renew his narcotic prescriptions MAPS Reviwed and it was apropriate . Medication managements= patient will be given prescription refills for Zanaflex 4 mg 3 times a day [place] 10/325 every 6 hours dispensed 120 with one refill Motrin 800 mg twice a day and Lyrica 100 mg every 8 hours, urine drug screen done today , Time with Patient: Less than 30 PQRS Measure Charge Sheet Measure #130: Documentation of Current Meds in Medical Chart: Patient's medications documented in chart Measure #226: Tobacco Use: Screen & Cessation Intervention: Pt screened for tobacco use AND intervention given Measure #111: Pneumonia Vaccination: Pneumococcal vaccine administered or previously received Measure #47: Advance Care Plan: Advance care planning discussed & documented, pt chose/unable to give Measure #412: Opioid Treatment Agreement: Documented signed opioid trtmnt agreemnt min once during opioid trtmnt Measure #408: Opioid Therapy Follow-up Evaluation: Patient had f/u eval minimum every 3 months during opioid therapy Measure #317: Preventitive Care & Scrn High Bld Press & F/U: Normal blood pressure, f/u not required Measure #128: Body Mass Index (BMI) Screening & Follow-up: BMI documented ABOVE normal parameters - f/u documented Measure #131: Pain Assessment & Follow-up: Pain positive & plan documented, Follow-up scheduled Measure #431: Unhealthy Alcohol Use Preventative Care & Scrn: Patient not identified as an unhealthy alcohol user PQRS Narrative: Smoking Status Current every day smoker Narcotic Agreement Date Signed 08/17/18 Blood Pressure 123/84 Pain Intensity [Back] 8 Pain Intensity [Neck] 7 Scale Used Numeric (1 - 10) Hx Alcohol Use (MH) No Home Medications: Ambulatory Orders Atorvastatin [Lipitor] 20 mg PO HS 04/16/14 Ergocalciferol [Vitamin D2 (DRISDOL)] 50,000 unit PO MO 07/09/14 DULoxetine HCL [Cymbalta] 60 mg PO DAILY 12/31/14 Tamsulosin HCl [Flomax] 0.4 mg PO HS 12/31/14 Albuterol Inhaler [Ventolin Hfa Inhaler] 2 puff INHALATION RT-Q4H PRN 11/17/18 Albuterol Nebulized [Ventolin Nebulized] 2.5 mg INHALATION RT-BID 11/17/18 Beclomethasone Dipropionate [Qvar 80 mcg] 2 puff INHALATION RT-BID 11/17/18 Cetirizine HCl [Zyrtec] 10 mg PO DAILY PRN 11/17/18 Ipratropium [place] [Atrovent Hfa] 2 puff INHALATION RT-BID 11/17/18 Levothyroxine Sodium [Synthroid] 88 mcg PO DAILY 11/17/18 Losartan Potassium 100 mg PO DAILY 11/17/18 Lurasidone HCl [Latuda] 40 mg PO DAILY 11/17/18 Testosterone Cypionate [Depo-Testosterone] 200 mg IM Q14D 11/17/18 metFORMIN HCL 1,000 mg PO BID 11/17/18 traZODone HCL 100 mg PO HS 11/17/18 Metoprolol Succinate 200 mg PO DAILY 01/04/19 Clopidogrel [Plavix] 1 tab PO DAILY 07/06/19 Ferrous Sulfate [Feosol] 325 mg PO DAILY 07/06/19 Beclomethasone Dip 80 Mcg/Puff [Qvar 80 mcg] 1 puff INHALATION TID 08/30/19 Famotidine [Pepcid] 20 mg PO DAILY 08/30/19 HYDROcodone/APAP 10-325MG [[place] 10-325] 1 tab PO Q6HR PRN 30 Days #120 tab 08/31/19 Hydrocodone/Acetaminophen [[place] 10-325] 1 tab PO Q6H PRN 30 Days #120 tab 08/31/19 Ibuprofen [Motrin] 800 mg PO BID #60 tab 08/31/19 Pregabalin [Lyrica] 100 mg PO TID #90 cap 08/31/19 tiZANidine [Zanaflex] 4 mg PO TID PRN #90 tab 08/31/19 Controlled Substance Measures - Controlled Substance Measures Is patient prescribed a controlled substance at discharge?: Yes When asked, does pt state using other controlled substances?: No If prescribed controlled substance>3 days was MAPS reviewed?: Yes If Rx opioid, was Start Talking consent form obtained?: Yes If opioid is for acute pain is fill amount 7 days or less?: No Was information provided regarding opioid addiction?: Yes
== END ==
LOC: PNWHC3 12:20
PROVIDERS: ATTEND Specialist
DX: G89.29 Other chronic pain (principal); M51.36 Other intervertebral disc degeneration, lumbar region; M47.816 Spondylosis without myelopathy or radiculopathy, lumbar region; M47.814 Spondylosis without myelopathy or radiculopathy, thoracic region; M46.96 Unspecified inflammatory spondylopathy, lumbar region; S22.009A Unspecified fracture of unspecified thoracic vertebra, initial encounter for closed fracture; F17.200 Nicotine dependence, unspecified, uncomplicated; Z79.899 Other long term (current) drug therapy; Z79.84 Long term (current) use of oral hypoglycemic drugs; Z79.891 Long term (current) use of opiate analgesic; Z79.1 Long term (current) use of non-steroidal anti-inflammatories (NSAID)
CPT/HCPCS: 80307; G0482; G0463; 99211

== ENCOUNTER → 2019-11-09 | Outpatient (CLI) | payer OTHER ==
[2019-11-09 13:10] VITALS: BP 120/85; PULSE 78; RESP 16
--- NOTE | 2019-11-15 09:14 | P.PAINPG ---
Subjective Progress Note Date: 11/09/19 This is follow-up visit for this patient with a history of severe and chronic neck pain secondary to cervical spondylosis, failed back surgery syndrome and cervical area , lumbar spondylosis with facet arthropathy,,We have done interventional pain procedures cervical medial branch block , and patient had complications during the procedure was not completed. Today his pain is located in bilateral neck radiating to trapezius and shoulders, worse on right, rated as 7/10. Patients currently on [place] 10/325 every 6 hours , Lyrica 100 mg 3 times a day, Zanaflex 4 mg 3 times a day, Motrin 800 mg 2 times a day when necessary Patient denies any side effects of the medication, denies excessive drowsiness or sleepiness, denies suicidal ideation, and reports that the current pain medication is helping to control the pain ,and improve activity of daily living ,Patient denies any motor or sensory deficit , patient denies any fever or night sweats, denies any change in the bowel movements or urination Review of systems is negative for chest pain, shortness of breath, new onset weakness, numbness/tingling, abdominal pain, malaise, fever, night sweats, chills, homicidal or suicidal ideation, or bowel or bladder incontinence. Objective Physical exam: Vitals: Reviewed in EMR GENERAL: Well appearing, in no acute distress PSYCH: Mood and affect is appropriate. Awake, alert, and oriented SKIN: Skin color, texture, turgor normal, no rashes or lesions HEENT: Normocephalic, atraumatic. EOM intact CV: No pedal edema RESP: Respirations are unlabored, no audible wheezing GI: Abdomen non-distended MUSCULOSKELETAL: Bilateral upper extremity strength is normal and symmetric. No atrophy or tone abnormalities are noted. Neck: tenderness to palpation over the cervical paraspinous muscles. Spurling negative, Axial Loading Test negative, Maldonado's sign negative. No obvious deformity or signs of trauma. Normal cervical lordotic curve and normal cervical spine range of motion. Multiple trigger points palpable over bilateral cervical paraspinals, traps and rhomboids Extremities: Peripheral joint ROM is full and pain free without obvious instability or laxity in all four extremities. No edema or skin discolorations noted. Gait: Gait is normal NEUR: Bilateral upper extremity coordination and muscle stretch reflexes are physiologic and symmetric. Negative clonus bilaterally. No loss of sensation is noted. Assessment and Plan Plan: Assessment and plan= chronic low back pain secondary to lumbar degenerative disc disease , lumbar spondylosis with lumbar facet arthropathy . Thoracic compression fractures thoracic spondylosis chronic and current use of high-risk medication (opioids) Patient denies any side effects of the current pain medication and the current treatment/medication helping the patient to do activity of daily living , Diagnoses, prognosis, treatment options, including but not limited to physical therapy, medication management, interventional therapies, and surgery, were discussed with the patient All the questions answered The narcotic consent was signed and patient agreed and understood the side effects and complications of opioid treatment. Patient signed the narcotic agreement, and was orally counseled, not to overuse, not to abuse, not to Divert , not to sell pain medication, and to take it as prescribed only, Patient was counseled not to drive or operate heavy equipment while using narcotic medication, and advised not to use alcohol or any Illicit drugs while using the narcotis. understanding that lack of compliance with any of the above instructions, will likely to cause discharge from, the pain service, not to renew his narcotic prescriptions Today, we discussed gradual weaning of opioids and he is amenable to this plan. MAPS Reviewed and it was appropriate . Medication managements= patient will be given prescription refills for Zanaflex 4 mg 3 times a day,Lyrica 100 mg every 8 hours, [place] 10/325 every 6 hours dispensed 100 with one refill (reduced from 120) with a plan to further reduce at next visit. Patient did not require Motrin 800 mg refill today. Urine drug screen reviewed, appropriate Procedures: we will schedule trigger point injections at bilateral cervical paraspinals, traps and rhomboids. He has had these injections in the past with a management and budget analyst and tolerated them well He was counselled on the importance of continued neck exercises. Follow up: for medication management in 2 months and for above mentioned procedure Time with Patient: Less than 30 PQRS Measure Charge Sheet Measure #130: Documentation of Current Meds in Medical Chart: Patient's medications documented in chart Measure #226: Tobacco Use: Screen & Cessation Intervention: Pt screened for tobacco use AND intervention given Measure #111: Pneumonia Vaccination: Pneumococcal vaccine administered or previously received Measure #47: Advance Care Plan: Advance care planning discussed & documented, pt chose/unable to give Measure #412: Opioid Treatment Agreement: Documented signed opioid trtmnt agreemnt min once during opioid trtmnt Measure #408: Opioid Therapy Follow-up Evaluation: Patient had f/u eval minimum every 3 months during opioid therapy Measure #317: Preventitive Care & Scrn High Bld Press & F/U: Normal blood pressure, f/u not required Measure #128: Body Mass Index (BMI) Screening & Follow-up: BMI documented ABOVE normal parameters - f/u documented Measure #131: Pain Assessment & Follow-up: Pain positive & plan documented, Follow-up scheduled Measure #431: Unhealthy Alcohol Use Preventative Care & Scrn: Patient not identified as an unhealthy alcohol user PQRS Measure Charge Sheet PQRS Narrative: Smoking Status Current every day smoker Narcotic Agreement Date Signed 08/17/18 Pain Intensity [Neck] 7 Hx Alcohol Use (MH) No Home Medications: Ambulatory Orders Atorvastatin [Lipitor] 20 mg PO HS 04/16/14 Ergocalciferol [Vitamin D2 (DRISDOL)] 50,000 unit PO MO 07/09/14 DULoxetine HCL [Cymbalta] 60 mg PO DAILY 12/31/14 Tamsulosin HCl [Flomax] 0.4 mg PO HS 12/31/14 Albuterol Inhaler [Ventolin Hfa Inhaler] 2 puff INHALATION RT-Q4H PRN 11/17/18 Albuterol Nebulized [Ventolin Nebulized] 2.5 mg INHALATION RT-BID 11/17/18 Cetirizine HCl [Zyrtec] 10 mg PO DAILY PRN 11/17/[address] [Atrovent Hfa] 2 puff INHALATION RT-BID 11/17/18 Levothyroxine Sodium [Synthroid] 88 mcg PO DAILY 11/17/18 Losartan Potassium 100 mg PO DAILY 11/17/18 Lurasidone HCl [Latuda] 40 mg PO DAILY 11/17/18 Testosterone Cypionate [Depo-Testosterone] 200 mg IM Q14D 11/17/18 metFORMIN HCL 1,000 mg PO BID 11/17/18 traZODone HCL 100 mg PO HS 11/17/18 Metoprolol Succinate 200 mg PO DAILY 01/04/19 Clopidogrel [Plavix] 75 mg PO DAILY 07/06/19 Ferrous Sulfate [Feosol] 325 mg PO DAILY 07/06/19 Beclomethasone Dip 80 Mcg/Puff [Qvar 80 mcg] 1 puff INHALATION TID 10/30/19 Famotidine [Pepcid] 20 mg PO DAILY 08/30/19 Hydrocodone/Acetaminophen [[place] 10-325] 1 tab PO Q6H PRN 30 Days #120 tab 08/31/19 Ibuprofen [Motrin] 800 mg PO BID #60 tab 08/31/19 Pregabalin [Lyrica] 100 mg PO TID #90 cap 08/31/19 tiZANidine [Zanaflex] 4 mg PO TID PRN #90 tab 08/31/19 Controlled Substance Measures - Controlled Substance Measures Is patient prescribed a controlled substance at discharge?: Yes When asked, does pt state using other controlled substances?: No If prescribed controlled substance>3 days was MAPS reviewed?: Yes If Rx opioid, was Start Talking consent form obtained?: Yes If opioid is for acute pain is fill amount 7 days or less?: No Was information provided regarding opioid addiction?: Yes
== END | disposition home or self-care (01) ==
LOC: PNWHC3 12:57
PROVIDERS: ATTEND Anesthesiology
DX: G89.29 Other chronic pain (principal); M51.36 Other intervertebral disc degeneration, lumbar region; M47.814 Spondylosis without myelopathy or radiculopathy, thoracic region; M47.816 Spondylosis without myelopathy or radiculopathy, lumbar region; M46.96 Unspecified inflammatory spondylopathy, lumbar region; S22.008A Other fracture of unspecified thoracic vertebra, initial encounter for closed fracture; Z79.891 Long term (current) use of opiate analgesic; F17.200 Nicotine dependence, unspecified, uncomplicated; Z79.890 Hormone replacement therapy; Z79.84 Long term (current) use of oral hypoglycemic drugs; Z79.02 Long term (current) use of antithrombotics/antiplatelets; Z79.51 Long term (current) use of inhaled steroids; Z79.1 Long term (current) use of non-steroidal anti-inflammatories (NSAID); Z79.899 Other long term (current) drug therapy
CPT/HCPCS: 99211

== ENCOUNTER → 2019-12-25 | Outpatient (CLI) | payer OTHER ==
--- NOTE | 2019-12-26 09:47 | XR ---
EXAMINATION TYPE: XR cervical spine comp DATE OF EXAM: 12/25/2019 TECHNIQUE: Frontal, lateral, oblique, swimmers, and open mouth view of the cervical spine are kaylae d. HISTORY: [id number] CERVICALGIA,REPEATED FALLS COMPARISON: 11/17/2018 FINDINGS: Anterior cervical fusion device spans C6-C7 with intervertebral disc spacer. The cervical s pine vertebral body heights are maintained. Small posterior projecting osteophytes are seen at C3-C4 and C4-C5. Alignment is overall maintained. No abnormal prevertebral soft tissue swelling. Uncoverteb ral hypertrophy at C4-C5 and C5-C6 are seen bilaterally without significant neural foraminal narrowin g radiographically. The C1-C2 articulation is within normal limits on the open mouth view. IMPRESSION: No acute fracture or dislocation is seen in the cervical spine. Postsurgical and degener ative change as discussed above.
== END | disposition home or self-care (01) ==
LOC: RADXRYALE 16:07
PROVIDERS: ATTEND Physician Assistant Medical
DX: M47.812 Spondylosis without myelopathy or radiculopathy, cervical region (principal); R29.6 Repeated falls; Z98.890 Other specified postprocedural states
CPT/HCPCS: 72050

== ENCOUNTER → 2020-01-04 | Outpatient (CLI) | payer OTHER ==
[2020-01-04 12:35] VITALS: BP 123/87; PULSE 86; RESP 16
--- NOTE | 2020-01-04 15:02 | P.PAINPG ---
Subjective Progress Note Date: 01/04/20 This is follow-up visit for this patient with a history of severe and chronic neck pain secondary to cervical spondylosis, failed back surgery syndrome cervical area , lumbar spondylosis with facet arthropathy, and myofascial pain syndrome and cervical area, patient reported that he fell recently , and he reported that his neck pain increased after he fell, and the pain now associated with numbness and tingling sensation in the upper extremity. Patients currently on [place] 10/325 every 6 hours , Lyrica 100 mg 3 times a day, Zanaflex 4 mg 3 times a day, Motrin 800 mg 2 times a day when necessary Patient denies any side effects of the medication, denies excessive drowsiness or sleepiness, denies suicidal ideation, and reports that the current pain medication is helping to control the pain ,and improve activity of daily living ,Patient denies any motor or sensory deficit , patient denies any fever or night sweats, denies any change in the bowel movements or urination Objective - Vital Signs Vital signs: Vital Signs Temp Pulse 86 01/04/20 12:20 Resp 16 01/04/20 12:20 BP 123/87 01/04/20 12:20 Pulse Ox 97 01/04/20 12:20 Intake & Output 01/03/20 01/04/20 01/04/20 18:59 06:59 18:59 Weight 85.729 kg - Exam Physical Examinations : -Constitutiona : Cooperative , not in acute distress . -HEENT : nech : supple , no Lymphadenopathy , normal thyroid size . : eyes : no ptosis , no icterus, no photophobia . : ENT : normal of hearing , normal oropharynx , no Thrush . - Respiratory : Chest clear to auscultations Bilaterally , no wheezing , no Rhonchi . - Cardiovascula : regular rate and rhythem , S1 , S2 , no S3 , no S4. - Gastrointestina : abdomen soft no tenderness , bowel sounds , no organomegally . - Genitourinary : Defferred . - neurologic : Cranial nerve II to XII intact , no focal neurological deffecit . -psychatric : alert , oriented X 3 , appropriate affect , intact judgment and insight . -Lymphatic : no Lymphadenopathy . - musculoskeltal : Cervical Spine motor stregnth in the deltoid and biceps, normal right side , normal Left side motor stregnth biceps and the wrist extensors normal right side ,normal left side . motor stregnth in the triceps muscle . normal Right side , normal Left side deep tendon reflexes normal at the biceps , normal at Brachioradialis , normal at triceps. cervical facet loading test: Positive Bilaterally Spurling test positive bilaterally. Neck distraction test positive bilaterally. Randy sign positive bilaterally. Multiple trigger points in the cervical paraspinal muscles Lumber spine moter stegnth lower extremities ,thigh and legs 5/5 Right side , 5/5 Left side Assessment and Plan Plan: Assessment and plan= Chronic neck pain secondary to cervical spondylosis with cervical facet arthropathy, failed back surgery syndrome and cervical area Neck pain increased after patient he fell recently, currently reported that the numbness and tingling sensation increased chronic low back pain secondary to lumbar degenerative disc disease , lumbar spondylosis with lumbar facet arthropathy . chronic and current use of high-risk medication (opioids) Patient denies any side effects of the current pain medication and the current treatment/medication helping the patient to do activity of daily living , Diagnoses, prognosis, treatment options, including but not limited to physical therapy, medication management, interventional therapies, and surgery, were discussed with the patient All the questions answered The narcotic consent was signed and patient agreed and understood the side effects and complications of opioid treatment. Patient signed the narcotic agreement, and was orally counseled, not to overuse, not to abuse, not to Divert , not tp sell pain medication, and to take it as prescribed only, Patient was counseled not to drive or operate heavy equipment while using narcotic medication, and advised not to use alcohol or any Illicit drugs while using the narcotis. understanding that lack of compliance with any of the above instructions, will likely to cause discharge from, the pain service, not to renew his narcotic prescriptions MAPS Reviwed and it was apropriate . Medication managements= patient will be given prescription refills for [place] 10/325 every 6 hours dispensed 100 with one refill, Lyrica 100 mg 3 times a day Zanaflex 4 mg 3 times a day. Investigation= patient could benefit from MRI of the cervical spine with and without contrast ,to evaluate if there is any new etiology ,after the fall incident. Patient will follow up in the pain clinic in 2 months for medication refill and in 2 weeks to evaluate the results of the MRI of the cervical spine , Time with Patient: Less than 30 PQRS Measure Charge Sheet Measure #130: Documentation of Current Meds in Medical Chart: Patient's medications documented in chart Measure #226: Tobacco Use: Screen & Cessation Intervention: Pt screened for tobacco use AND intervention given Measure #111: Pneumonia Vaccination: Pneumococcal vaccine administered or previously received Measure #47: Advance Care Plan: Advance care planning discussed & documented, pt chose/unable to give Measure #412: Opioid Treatment Agreement: Documented signed opioid trtmnt agreemnt min once during opioid trtmnt Measure #408: Opioid Therapy Follow-up Evaluation: Patient had f/u eval minimum every 3 months during opioid therapy Measure #317: Preventitive Care & Scrn High Bld Press & F/U: Normal blood pressure, f/u not required Measure #128: Body Mass Index (BMI) Screening & Follow-up: BMI documented ABOVE normal parameters - f/u documented Measure #131: Pain Assessment & Follow-up: Pain positive & plan documented, Follow-up scheduled Measure #431: Unhealthy Alcohol Use Preventative Care & Scrn: Patient not identi fied as an unhealthy alcohol user PQRS Narrative: Smoking Status Current every day smoker Narcotic Agreement Date Signed 08/31/19 Blood Pressure 123/87 Pain Intensity [Neck] 8 Scale Used Numeric (1 - 10) Hx Alcohol Use (MH) No Home Medications: Ambulatory Orders Atorvastatin [Lipitor] 20 mg PO HS 04/16/14 Ergocalciferol [Vitamin D2 (DRISDOL)] 50,000 unit PO MO 07/09/14 DULoxetine HCL [Cymbalta] 60 mg PO DAILY 12/31/14 Tamsulosin HCl [Flomax] 0.4 mg PO HS 12/31/14 Albuterol Inhaler [Ventolin Hfa Inhaler] 2 puff INHALATION RT-Q4H PRN 11/17/18 Albuterol Nebulized [Ventolin Nebulized] 2.5 mg INHALATION RT-BID 11/17/18 Cetirizine HCl [Zyrtec] 10 mg PO DAILY PRN 11/17/18 Ipratropium [place] [Atrovent Hfa] 2 puff INHALATION RT-BID 11/17/18 Levothyroxine Sodium [Synthroid] 88 mcg PO DAILY 11/17/18 Losartan Potassium 100 mg PO DAILY 11/17/18 Testosterone Cypionate [Depo-Testosterone] 200 mg IM Q14D 11/17/18 metFORMIN HCL 1,000 mg PO BID 11/17/18 traZODone HCL 100 mg PO HS 11/17/18 Metoprolol Succinate 200 mg PO DAILY 01/04/19 Clopidogrel [Plavix] 75 mg PO DAILY 07/06/19 Ferrous Sulfate [Feosol] 325 mg PO DAILY 07/06/19 Beclomethasone Dip 80 Mcg/Puff [Qvar 80 mcg] 1 puff INHALATION TID 08/30/19 Famotidine [Pepcid] 20 mg PO DAILY 08/30/19 Ibuprofen [Motrin] 800 mg PO BID #60 tab 08/31/19 Cariprazine HCl [Vraylar] 1.5 mg PO DAILY 11/21/19 buPROPion HCL [Wellbutrin XL] 300 mg PO DAILY 01/03/20 HYDROcodone/APAP 10-325MG [[place] 10-325] 1 tab PO Q8HR PRN 30 Days #100 tab 01/04/20 Hydrocodone/Acetaminophen [[place] 10-325] 1 tab PO Q6H PRN 30 Days #100 tab 01/04/20 Pregabalin [Lyrica] 100 mg PO TID #90 cap 01/04/20 tiZANidine [Zanaflex] 4 mg PO TID PRN #90 tab 01/04/20 Controlled Substance Measures - Controlled Substance Measures Is patient prescribed a controlled substance at discharge?: Yes When asked, does pt state using other controlled substances?: No If prescribed controlled substance>3 days was MAPS reviewed?: Yes If Rx opioid, was Start Talking consent form obtained?: Yes If opioid is for acute pain is fill amount 7 days or less?: No Was information provided regarding opioid addiction?: Yes
== END | disposition home or self-care (01) ==
LOC: PNWHC3 12:14
PROVIDERS: ATTEND Specialist
DX: G89.29 Other chronic pain (principal); M51.36 Other intervertebral disc degeneration, lumbar region; M47.812 Spondylosis without myelopathy or radiculopathy, cervical region; M96.1 Postlaminectomy syndrome, not elsewhere classified; Z79.891 Long term (current) use of opiate analgesic; F17.200 Nicotine dependence, unspecified, uncomplicated; Z79.890 Hormone replacement therapy; Z79.84 Long term (current) use of oral hypoglycemic drugs; Z79.02 Long term (current) use of antithrombotics/antiplatelets; Z79.51 Long term (current) use of inhaled steroids; Z79.1 Long term (current) use of non-steroidal anti-inflammatories (NSAID); Z79.899 Other long term (current) drug therapy
CPT/HCPCS: 99211

== ENCOUNTER → 2020-03-20 | Outpatient (CLI) | payer OTHER ==
--- NOTE | 2020-03-20 16:29 | MR ---
MRI CERVICAL SPINE: CLINICAL HISTORY: Chronic neck pain causing pain or numbness into left arm. History of surgery 15 yea rs ago. TECHNIQUE: Multiplanar, multisequence imaging of the cervical spine is performed without IV contrast. COMPARISON: Cervical spine x-ray December 25, 2019. Prior MRI October 14, 2018 FINDINGS: Sagittal images of the cervical spine show the craniocervical junction to remain within nor mal limits. The cervical and upper thoracic spinal cord remains normal in course, caliber, and signa l. Vertebral alignment is stable and satisfactory. Artifact from anterior fusion plate and metallic cage material C6-C7 level is redemonstrated. The vertebral body and intravertebral disk heights are normal above and below surgical levels. The bone marrow signal intensity remains within normal limit s. Axial images show the C2-C3 level to remain within normal limits. Axial images at the C3-C4 level redemonstrated broad-based left paracentral disc protrusion and some uncovertebral facet degenerative changes bilaterally, there is some effacement of the anterolateral t hecal sac and asymmetric mild left-sided neural foraminal narrowing. No significant change from prior . Axial images at C4-C5 level show more prominent broad-based left paracentral disc protrusion effacing anterolateral thecal sac and causing mild to moderate left-sided neural foraminal narrowing thought not definitely changed from prior study axial image 37. Axial images at C5-C6 levels with broad-based right paracentral disc protrusion mildly effacing the a nterolateral thecal sac, bilateral neural foramina are patent. No significant change from prior. Axial images at C6-C7 level show artifact from surgical change, bilateral neural foramina are patent. Axial images at C7-T1 level shows some artifact from surgical change with patent spinal canal and kimmy ateral neural foramina. IMPRESSION: Postsurgical change C6-C7 level redemonstrated with stable satisfactory alignment. Stable multilevel degenerative changes C3-C4 through C5-C6 level as detailed above. No significant interval progression from 2018 MRI.
== END | disposition home or self-care (01) ==
LOC: RADMRIMAIN 15:37
PROVIDERS: ATTEND Specialist
DX: M50.123 Cervical disc disorder at C6-C7 level with radiculopathy (principal); M47.892 Other spondylosis, cervical region; G89.29 Other chronic pain; Z98.890 Other specified postprocedural states
CPT/HCPCS: 72141

== ENCOUNTER → 2020-04-03 | Outpatient (CLI) | payer OTHER ==
--- NOTE | 2020-04-03 13:25 | P.PAINPG ---
Subjective Progress Note Date: 04/03/20 Mr. Fontana is a 49 y/o male with chronic neck pain. he was seen via telemedicine visit today. Continued neck pain with left side pain, n/t down left arm and left leg. No weakness. NO bowel or bladder changes. He reports pain with activity, and even at rest. Pain medications do help. He recently had an MRI of the C spine which shows stable hardware, degenerative changes but now NFS or CCS. denies side effects from pain medications. Objective - Vital Signs Vital signs: Intake & Output 04/02/20 04/03/20 04/03/20 18:59 06:59 18:59 Weight 86.183 kg - Exam GENERAL: Awake, alert, oriented, no distress HENT: atraumatic, normocephalic, trachea midline, nose midline RESP: NO audible wheezing, no coughing CARDIO: Reg rate (per patient palpation), no edema ABDOMEN: Non tender (per patient), no distension CERVICAL SPINE: limited ROM, flexion preserved, extension and left later bending limited secondary to pain. LUMBAR SPINE: Limited range of motion secondary to pain, pain with flexion and extension of the Lumbar spine. NEURO: Gait is Normal, Sensation in Lower ext normal (per patient) PSYCH: Cooperative, normal affect. Assessment and Plan Assessment: Cervical spondylosis Cervical radiculopathy cervical post laminectomy opioid dependence Plan: Plan is to continue current medications, follow up in 4 weeks. We discussed potentially treating facet join arthritis as needed. PQRS Measure Charge Sheet Measure #130: Documentation of Current Meds in Medical Chart: Patient's medications documented in chart Measure #226: Tobacco Use: Screen & Cessation Intervention: Pt not a tobacco user Measure #111: Pneumonia Vaccination: Pneumococcal vaccine administered or previously received Measure #47: Advance Care Plan: Advance care planning discussed & documented, plan or surrogate given Measure #412: Opioid Treatment Agreement: Documented signed opioid trtmnt agreemnt min once during opioid trtmnt Measure #408: Opioid Therapy Follow-up Evaluation: Patient had f/u eval minimum every 3 months during opioid therapy Measure #317: Preventitive Care & Scrn High Bld Press & F/U: Blood pressure not documented, patient not eligible Measure #128: Body Mass Index (BMI) Screening & Follow-up: BMI documented within normal parameters Measure #131: Pain Assessment & Follow-up: Pain positive & plan documented Measure #431: Unhealthy Alcohol Use Preventative Care & Scrn: Patient not identified as an unhealthy alcohol user PQRS Narrative: Smoking Status Current every day smoker Narcotic Agreement Date Signed 08/31/19 Pain Intensity [Neck] 7 Scale Used Numeric (1 - 10) Hx Alcohol Use (MH) No Home Medications: Ambulatory Orders Atorvastatin [Lipitor] 20 mg PO HS 04/16/14 Ergocalciferol [Vitamin D2 (DRISDOL)] 50,000 unit PO MO 07/09/14 DULoxetine HCL [Cymbalta] 60 mg PO DAILY 12/31/14 Tamsulosin HCl [Flomax] 0.4 mg PO HS 12/31/14 Albuterol Inhaler (Mhu) [Ventolin Hfa Inhaler] 2 puff INHALATION RT-Q4H PRN 11/17/18 Albuterol Nebulized [Ventolin Nebulized] 2.5 mg INHALATION RT-BID PRN 11/17/18 Cetirizine HCl [Zyrtec] 10 mg PO DAILY PRN 11/17/18 Ipratropium [place] [Atrovent Hfa] 2 puff INHALATION RT-BID PRN 11/17/18 Levothyroxine Sodium [Synthroid] 88 mcg PO DAILY 11/17/18 Losartan Potassium 100 mg PO DAILY 11/17/18 Testosterone Cypionate [Depo-Testosterone] 200 mg IM Q14D 11/17/18 metFORMIN HCL 1,000 mg PO BID 11/17/18 traZODone HCL 100 mg PO HS 11/17/18 Metoprolol Succinate 200 mg PO DAILY 01/04/19 Clopidogrel [Plavix] 75 mg PO DAILY 07/06/19 Ferrous Sulfate [Feosol] 325 mg PO DAILY 07/06/19 Beclomethasone Dip 80 Mcg/Puff [Qvar 80 mcg] 1 puff INHALATION TID PRN 08/30/19 Famotidine [Pepcid] 20 mg PO DAILY 08/30/19 Cariprazine HCl [Vraylar] 1.5 mg PO DAILY 11/21/19 buPROPion HCL [Wellbutrin XL] 300 mg PO DAILY 01/03/20 tiZANidine HCL [Zanaflex] 4 mg PO Q8HR PRN #90 tab 01/29/20 Clopidogrel [Plavix] 75 mg PO DAILY 04/02/20 HYDROcodone/APAP 10-325MG [[place] 10-325] 1 tab PO Q8H PRN 30 Days #90 tab 04/03/20 Ibuprofen [Motrin] 800 mg PO Q8H PRN #60 tab 04/03/20 Pregabalin [Lyrica] 100 mg PO TID 30 Days #90 cap 04/03/20 tiZANidine [Zanaflex] 4 mg PO TID PRN #90 tab 04/03/20 Controlled Substance Measures - Controlled Substance Measures Is patient prescribed a controlled substance at discharge?: Yes When asked, does pt state using other controlled substances?: No If prescribed controlled substance>3 days was MAPS reviewed?: Yes If Rx opioid, was Start Talking consent form obtained?: Yes If opioid is for acute pain is fill amount 7 days or less?: No Was information provided regarding opioid addiction?: Yes
== END | disposition home or self-care (01) ==
LOC: PNWHC3 07:04
PROVIDERS: ATTEND Hospitalist
DX: Z53.9 Procedure and treatment not carried out, unspecified reason (principal)

== ENCOUNTER → 2020-05-01 | Outpatient (CLI) | payer OTHER ==
[2020-05-01 14:01] VITALS: BP 148/94; PULSE 100; RESP 18; TEMP 98.4
--- NOTE | 2020-05-01 14:13 | P.PAINPG ---
Subjective Progress Note Date: 05/01/20 This is follow-up visit for this patient with a history of severe and chronic neck pain secondary to cervical spondylosis, failed back surgery syndrome cervical area , lumbar spondylosis with facet arthropathy, and myofascial pain syndrome and cervical area, he has been managed with a combination of medications and interventional pain procedures, although he does not undergo epidural steroid injections as he has had a poor reaction to it in the past. Most recently, we have done trigger point injections in December 2019, he reports good relief from this. Patients currently on [place] 10/325 every 6 hours , Lyrica 100 mg 3 times a day, Zanaflex 4 mg 3 times a day. He is also obtaining Mobic from primary care physician. Today, his pain is primarily located between his shoulder blades, does not radiate to extremities. He also has left lateral hip pain. Pain is rated as 7/10 today, described as pins and needle sensation. Pain is worse with activity, better with medications. Patient denies any side effects of the medication, denies excessive drowsiness or sleepiness, denies suicidal ideation, and reports that the current pain medication is helping to control the pain ,and improve activity of daily living ,Patient denies any motor or sensory deficit , patient denies any fever or night sweats, denies any change in the bowel movements or urination Review of systems is negative for chest pain, shortness of breath, new onset weakness, numbness/tingling, abdominal pain, malaise, fever, night sweats, chills, homicidal or suicidal ideation, or bowel or bladder incontinence. Objective Physical exam: Vitals: Reviewed in EMR GENERAL: Well appearing, in no acute distress PSYCH: Mood and affect is appropriate. Awake, alert, and oriented SKIN: Skin color, texture, turgor normal, no rashes or lesions HEENT: Normocephalic, atraumatic. EOM intact CV: 1+ pitting pedal edema RESP: Respirations are unlabored, no audible wheezing GI: Abdomen non-distended MUSCULOSKELETAL: Bilateral upper and lower extremity strength is normal and symmetric. No atrophy or tone abnormalities are noted. Neck: Tenderness to palpation with palpable trigger points of thoracic paraspinous muscles, trapezius, infraspinatus bilaterally. Maldonado's sign negative. Lumbar spine: Straight leg raising in the sitting position is negative for radicular pain. Positive for pain with facet loading and back extension/rotation. Extremities: Peripheral joint ROM is full and pain free without obvious instability or laxity in all four extremities. No edema or skin discolorations noted. Tenderness to palpation along left greater trochanter. NEUR: Bilateral upper extremity coordination and muscle stretch reflexes are physiologic and symmetric. No loss of sensation is noted. Imaging: MRI cervical spine done on 03/20/2020 shows postsurgical changes from ACDF at C6-7 with stable satisfactory alignment. Stable multilevel degenerative changes from C3-4 through C5-C6 level. No interval progression from MRI in 2018. Assessment and Plan Plan: Assessment and plan= Chronic neck pain secondary to cervical spondylosis with cervical facet arthropathy, failed back surgery syndrome and cervical area myofascial pain syndrome Left greater trochanter bursitis chronic low back pain secondary to lumbar degenerative disc disease , lumbar spondylosis with lumbar facet arthropathy . chronic and current use of high-risk medication (opioids) Patient denies any side effects of the current pain medication and the current treatment/medication helping the patient to do activity of daily living , The narcotic consent was signed and is on file MAPS Reviewed and it was appropriate . UDS ordered today. Medication managements= patient will be given prescription refills for [place] 10/325 every 6 hours dispensed 90 with one refill, Lyrica 100 mg 3 times a day Zanaflex 4 mg 3 times a day. Procedures: Will schedule trigger point injections to bilateral thoracic paraspinals, trapezius, infraspinatus. At the same time, we will also perform left greater trochanter bursa injections. Follow-up: For above-mentioned procedure and in 8 weeks for medication management Of note his blood pressure is elevated at 158/106, on recheck it was 148/94. The patient is working with his primary care physician to get his blood pressure under control. PQRS Measure Charge Sheet Measure #130: Documentation of Current Meds in Medical Chart: Patient's medications documented in chart Measure #226: Tobacco Use: Screen & Cessation Intervention: Pt screened for tobacco use AND intervention given Measure #111: Pneumonia Vaccination: Pneumococcal vaccine administered or previously received Measure #47: Advance Care Plan: Advance care planning discussed & documented, pt chose/unable to give Measure #412: Opioid Treatment Agreement: Documented signed opioid trtmnt agreemnt min once during opioid trtmnt Measure #408: Opioid Therapy Follow-up Evaluation: Patient had f/u eval minimum every 3 months during opioid therapy Measure #317: Preventitive Care & Scrn High Bld Press & F/U: Prehypertensive or hypertensive, follow-up with primary care physician Measure #128: Body Mass Index (BMI) Screening & Follow-up: BMI documented ABOVE normal parameters - f/u documented Measure #131: Pain Assessment & Follow-up: Pain positive & plan documented, Follow-up scheduled Measure #431: Unhealthy Alcohol Use Preventative Care & Scrn: Patient not identified as an unhealthy alcohol user Objective - Vital Signs Vital signs: Intake & Output 04/30/20 05/01/20 05/01/20 18:59 06:59 18:59 Weight 88.451 kg PQRS Measure Charge Sheet PQRS Narrative: Smoking Status Current every day smoker Narcotic Agreement Date Signed 08/31/19 Pain Intensity [Left Hip] 8 Pain Intensity [Left Shoulder] 8 Pain Intensity [Back] 7 Pain Intensity [Neck] 6 Scale Used Numeric (1 - 10) Hx Alcohol Use (MH) No Home Medications: Ambulatory Orders Atorvastatin [Lipitor] 10 mg PO HS 04/16/14 Ergocalciferol [Vitamin D2 (DRISDOL)] 50,000 unit PO Q14D 07/09/14 DULoxetine HCL [Cymbalta] 60 mg PO DAILY 12/31/14 Tamsulosin HCl [Flomax] 0.4 mg PO Q48H 12/31/14 Albuterol Inhaler (Mhu) [Ventolin Hfa Inhaler] 2 puff INHALATION RT-Q4H PRN 11/17/18 Albuterol Nebulized [Ventolin Nebulized] 2.5 mg INHALATION RT-BID PRN 11/17/18 Cetirizine HCl [Zyrtec] 10 mg PO DAILY PRN 11/17/18 Levothyroxine Sodium [Synthroid] 88 mcg PO DAILY 11/17/18 Losartan Potassium 100 mg PO DAILY 11/17/18 Testosterone Cypionate [Depo-Testosterone] 200 mg IM Q14D 11/17/18 metFORMIN HCL 1,000 mg PO BID 11/17/18 traZODone HCL 100 mg PO HS 11/17/18 Metoprolol Succinate 200 mg PO DAILY 01/04/19 Ferrous Sulfate [Feosol] 325 mg PO DAILY 07/06/19 Cariprazine HCl [Vraylar] 1.5 mg PO DAILY 11/21/19 buPROPion HCL [Wellbutrin XL] 300 mg PO DAILY 01/03/20 Clopidogrel [Plavix] 75 mg PO DAILY 04/02/20 Ibuprofen [Motrin] 800 mg PO Q8H PRN #60 tab 04/03/20 Fenofibrate [Lofibra] 54 mg PO DAILY 04/30/20 Meloxicam [Mobic] 15 mg PO DAILY 04/30/20 Sildenafil Citrate [Viagra] 100 mg PO DAILY 04/30/20 Spironolactone [Aldactone] 25 mg PO DAILY 04/30/20 HYDROcodone/APAP 10-325MG [[place] 10-325] 1 tab PO Q8H PRN 30 Days #90 tab 05/01/20 HYDROcodone/APAP 10-325MG [[place] 10-325] 1 tab PO Q8HR PRN 30 Days #90 tab 05/01/20 Pregabalin [Lyrica] 100 mg PO TID 30 Days #90 cap 05/01/20 tiZANidine [Zanaflex] 4 mg PO TID PRN #90 tab 05/01/20 Controlled Substance Measures - Controlled Substance Measures Is patient prescribed a controlled substance at discharge?: Yes When asked, does pt state using other controlled substances?: No If prescribed controlled substance>3 days was MAPS reviewed?: Yes If Rx opioid, was Start Talking consent form obtained?: Yes If opioid is for acute pain is fill amount 7 days or less?: No Was information provided regarding opioid addiction?: Yes
== END | disposition home or self-care (01) ==
LOC: PNWHC3 13:08
PROVIDERS: ATTEND Anesthesiology
DX: M47.812 Spondylosis without myelopathy or radiculopathy, cervical region (principal); M46.92 Unspecified inflammatory spondylopathy, cervical region; M96.1 Postlaminectomy syndrome, not elsewhere classified; M79.18 Myalgia, other site; M70.62 Trochanteric bursitis, left hip; M51.36 Other intervertebral disc degeneration, lumbar region; M47.816 Spondylosis without myelopathy or radiculopathy, lumbar region; M46.96 Unspecified inflammatory spondylopathy, lumbar region; Z79.891 Long term (current) use of opiate analgesic; Z79.899 Other long term (current) drug therapy; F17.200 Nicotine dependence, unspecified, uncomplicated; Z79.84 Long term (current) use of oral hypoglycemic drugs; Z79.890 Hormone replacement therapy
CPT/HCPCS: 99211

== ENCOUNTER 2020-05-03 01:35 | Emergency (ER) | payer OTHER ==
[2020-05-03 02:04] LABS: Glucose,Whole Blood 127 mg/dL (75-99)
[2020-05-03] MEDS ORDERED: HYDROcodone/APAP 10-325MG 1 EACH TAB PO ONE (03:01)
[2020-05-03 03:05] VITALS: RESP 18
[2020-05-03 03:16] LABS: Basophils # (A) 0.1 k/uL (0-0.2); Basophils % (A) 1 %; Eosinophils # (A) 0.4 k/uL (0-0.7); Eosinophils % (A) 3 %; HCT 48.7 % (39.0-53.0); Lymphocytes # (A) 3.7 k/uL (1.0-4.8); Lymphocytes % (A) 25 %; MCH 33.5 pg (25.0-35.0); MCV 101.7 fL (80.0-100.0); Macrocytosis Slight; Mean Platelet Volume 8.1; Monocytes # (A) 0.8 k/uL (0-1.0); Monocytes % (A) 5 %; Neutrophils # (A) 9.4 k/uL (1.3-7.7); Neutrophils % (A) 65 %; Platelet Count 323 k/uL (150-450); RBC 4.79 m/uL (4.30-5.90); RDW 13.2 % (11.5-15.5); WBC 14.6 k/uL (3.8-10.6)
[2020-05-03 03:19] LABS: Appearance,Urine Clear (Clear); Bilirubin,Urine Negative (Negative); Blood,Urine Negative (Negative); Color,Urine Yellow; Glucose,Urine (UA) Negative (Negative); Ketones,Urine Trace (Negative); Leukocyte Esterase,Urine Negative (Negative); Nitrite,Urine Negative (Negative); PH, Urine 5.5 (5.0-8.0); Protein,Urine Trace (Negative); Specific Gravity,Urine 1.029 (1.001-1.035)
[2020-05-03 03:21] LABS: Albumin 4.9 g/dL (3.5-5.0); Calcium 10.6 mg/dL (8.4-10.2); Potassium 4.6 mmol/L (3.5-5.1); Total Bilirubin 0.4 mg/dL (0.2-1.3); Total Protein 7.7 g/dL (6.3-8.2)
--- NOTE | 2020-05-03 03:32 | ED ---
General Adult HPI - General Chief complaint: Recheck/Abnormal Lab/Rx Stated complaint: hypertension Time Seen by Provider: 05/03/20 01:49 Source: patient Mode of arrival: wheelchair Limitations: no limitations - History of Present Illness Initial comments: This patient is a 49-year-old man who presents to the hospital to be evaluated for hypertension. The patient states that he does routinely check his blood pressure and then it is been running higher than usual. This is been going on for the past couple of days and his physician had prescribed additional medication, hydralazine to take for the blood pressure. Patient states that he has been taking the hydralazine as prescribed but still is having elevations of his blood pressure. He is denying symptoms related to this. -: days(s) Improves with: none Worsens with: none Associated Symptoms: denies other symptoms Treatments Prior to Arrival: none - Related Data Home Medications Medication Instructions Recorded Confirmed Atorvastatin [Lipitor] 10 mg PO HS 04/16/14 04/30/20 Ergocalciferol [Vitamin D2 50,000 unit PO Q14D 07/09/14 04/30/20 (DRISDOL)] DULoxetine HCL [Cymbalta] 60 mg PO DAILY 12/31/14 04/30/20 Tamsulosin HCl [Flomax] 0.4 mg PO Q48H 12/31/14 04/30/20 Albuterol Inhaler (Mhu) [Ventolin 2 puff INHALATION RT-Q4H PRN 11/17/18 04/30/20 Hfa Inhaler] Albuterol Nebulized [Ventolin 2.5 mg INHALATION RT-BID PRN 11/17/18 04/30/20 Nebulized] Cetirizine HCl [Zyrtec] 10 mg PO DAILY PRN 11/17/18 04/30/20 Levothyroxine Sodium [Synthroid] 88 mcg PO DAILY 11/17/18 04/30/20 Losartan Potassium 100 mg PO DAILY 11/17/18 04/30/20 Testosterone Cypionate 200 mg IM Q14D 11/17/18 04/30/20 [Depo-Testosterone] metFORMIN HCL 1,000 mg PO BID 11/17/18 04/30/20 traZODone HCL 100 mg PO HS 11/17/18 04/30/20 Metoprolol Succinate 200 mg PO DAILY 01/04/19 04/30/20 Ferrous Sulfate [Feosol] 325 mg PO DAILY 07/06/19 04/30/20 Cariprazine HCl [Vraylar] 1.5 mg PO DAILY 11/21/19 04/30/20 buPROPion HCL [Wellbutrin XL] 300 mg PO DAILY 01/03/20 04/30/20 Clopidogrel [Plavix] 75 mg PO DAILY 04/02/20 04/30/20 Fenofibrate [Lofibra] 54 mg PO DAILY 04/30/20 04/30/20 Meloxicam [Mobic] 15 mg PO DAILY 04/30/20 04/30/20 Sildenafil Citrate [Viagra] 100 mg PO DAILY 04/30/20 04/30/20 Spironolactone [Aldactone] 25 mg PO DAILY 04/30/20 04/30/20 Previous Rx's Medication Instructions Recorded Ibuprofen [Motrin] 800 mg PO Q8H PRN #60 tab 04/03/20 HYDROcodone/APAP 10-325MG [[place] 1 tab PO Q8H PRN 30 Days #90 tab 05/01/20 10-325] HYDROcodone/APAP 10-325MG [[place] 1 tab PO Q8HR PRN 30 Days #90 tab 05/01/20 10-325] Pregabalin [Lyrica] 100 mg PO TID 30 Days #90 cap 05/01/20 tiZANidine [Zanaflex] 4 mg PO TID PRN #90 tab 05/01/20 Allergies Allergy/AdvReac Type Severity Reaction Status Date / Time adhesive tape Allergy Rash/Hives Verified 05/03/20 01:45 cefaclor [From Ceclor] Allergy Rash/Hives Verified 05/03/20 01:45 Iodinated Contrast Media Allergy Rash/Hives,throat Verified 05/03/20 01:45 [Iodinated Contrast Media - swelling IV Dye] iodine Allergy Rash/Hives,throat Verified 05/03/20 01:45 swelling propoxyphene napsylate Allergy Rash/Hives Verified 05/03/20 01:45 [From Darvocet-N 100] Sulfa (Sulfonamide Allergy Dyspnea Verified 05/03/20 01:45 Antibiotics) sulfamethoxazole Allergy Rapid Verified 05/03/20 01:45 [From Bactrim] Heart Rate trimethoprim [From Bactrim] Allergy Rapid Verified 05/03/20 01:45 Heart Rate Review of Systems ROS Statement: Those systems with pertinent positive or pertinent negative responses have been documented in the HPI. ROS Other: All systems not noted in ROS Statement are negative. Constitutional: Denies: fever, chills, weakness Eyes: Denies: vision change Respiratory: Denies: cough, dyspnea Cardiovascular: Reports: edema. Denies: chest pain, palpitations, orthopnea, syncope Gastrointestinal: Denies: abdominal pain, vomiting, diarrhea Genitourinary: Denies: dysuria, hematuria Musculoskeletal: Denies: back pain Skin: Denies: rash Neurological: Denies: headache, weakness, numbness Past Medical History Past Medical History: CVA/TIA Additional Past Medical History / Comment(s): TMJ sinus pb.,eczema, kidney stones,diverticulitis, ulcers. abd. pain, back pain, implants, fractures, physical limitations, numbness and tingling both legs and both hands. uses a cane at times, removal of skin cancer DX WITH HYPERREFLEXIA, "Swollen nerves in eyes." Bilateral nerve release in bilateral elbows - June 2018 CVA NOV 2018, WBC count high seeing Dr. Romero History of Any Multi-Drug Resistant Organisms: None Reported Past Surgical History: Adenoidectomy, Hernia Repair, Orthopedic Surgery, Tonsillectomy Additional Past Surgical History / Comment(s): neck fusion,colonoscopy, left knee arthroscopy, Carpal tunnel surgery both wrists recently, PAIN CLINIC INJECTIONS, upper endoscopy , BILAT CUBITAL SX ON ELBOWS Past Anesthesia/Blood Transfusion Reactions: No Reported Reaction Past Psychological History: Anxiety, Depression Smoking Status: Current every day smoker Past Alcohol Use History: None Reported Past Drug Use History: None Reported - Past Family History Mother Family Medical History: Cancer Father Family Medical History: Cancer General Exam Limitations: no limitations General appearance: alert, in no apparent distress Head exam: Present: atraumatic, normocephalic Eye exam: Present: normal appearance. Absent: scleral icterus, conjunctival injection ENT exam: Present: normal oropharynx Neck exam: Present: normal inspection, full ROM Respiratory exam: Present: normal lung sounds bilaterally. Absent: respiratory distress, wheezes, rales, rhonchi, stridor Cardiovascular Exam: Present: regular rate, normal rhythm, normal heart sounds. Absent: systolic murmur, diastolic murmur, rubs, gallop GI/Abdominal exam: Present: soft. Absent: distended, tenderness, guarding, rebound, rigid, mass Extremities exam: Present: normal inspection, normal capillary refill. Absent: pedal edema, calf tenderness Back exam: Present: normal inspection. Absent: CVA tenderness (R), CVA tenderness (L) Neurological exam: Present: alert Skin exam: Present: warm, dry, intact, normal color. Absent: rash Course Vital Signs 05/03/20 05/03/20 05/03/20 01:40 03:04 05:00 Temperature 98.3 F Pulse Rate 82 77 76 Respiratory 20 18 18 Rate Blood Pressure 158/107 139/96 158/59 O2 Sat by Pulse 99 97 97 Oximetry 05/03/20 05:59 Temperature 98.7 F Pulse Rate 90 Respiratory 18 Rate Blood Pressure 136/93 O2 Sat by Pulse 97 Oximetry EKG Findings - EKG Results: EKG: interpreted by ERMD, sinus rhythm (Rate 81 bpm), normal QRS (Normal), normal ST/T (Normal) - Blocks, [place], Hypertrophy, ST Abn: QRS axis and voltage: left axis deviation (-30 to -90) Medical Decision Making - Lab Data Result diagrams: 05/03/20 03:04 05/03/20 03:04 Lab Results 05/03/20 05/03/20 05/03/20 Range/Units 02:00 03:04 03:04 WBC 14.6 H (3.8-10.6) k/uL RBC 4.79 (4.30-5.90) m/uL Hgb 16.0 (13.0-17.5) gm/dL Hct 48.7 (39.0-53.0) % MCV 101.7 H (80.0-100.0) fL MCH 33.5 (25.0-35.0) pg MCHC 33.0 (31.0-37.0) g/dL RDW 13.2 (11.5-15.5) % Plt Count 323 (150-450) k/uL Neutrophils % 65 % Lymphocytes % 25 % Monocytes % 5 % Eosinophils % 3 % Basophils % 1 % Neutrophils # 9.4 H (1.3-7.7) k/uL Lymphocytes # 3.7 (1.0-4.8) k/uL Monocytes # 0.8 (0-1.0) k/uL Eosinophils # 0.4 (0-0.7) k/uL Basophils # 0.1 (0-0.2) k/uL Macrocytosis Slight Sodium 139 (137-145) mmol/L Potassium 4.6 (3.5-5.1) mmol/L Chloride 97 L (98-107) mmol/L Carbon Dioxide 30 (22-30) mmol/L Anion Gap 12 mmol/L BUN 24 H (9-20) mg/dL Creatinine 1.34 H (0.66-1.25) mg/dL Est GFR (CKD-EPI)AfAm 72 (>60 ml/min/1.73 sqM) Est GFR (CKD-EPI)NonAf 62 (>60 ml/min/1.73 sqM) Glucose 100 H (74-99) mg/dL POC Glucose (mg/dL) 127 H (75-99) mg/dL POC Glu Television Maintenance Worker ID Fetterly, Archel Calcium 10.6 H (8.4-10.2) mg/dL Total Bilirubin 0.4 (0.2-1.3) mg/dL AST 29 (17-59) U/L ALT 41 (4-49) U/L Alkaline Phosphatase 62 (38-126) U/L Troponin I (0.000-0.034) ng/mL Total Protein 7.7 (6.3-8.2) g/dL Albumin 4.9 (3.5-5.0) g/dL Urine Color Urine Appearance (Clear) Urine pH (5.0-8.0) Ur Specific [place] (1.001-1.035) Urine Protein (Negative) Urine Glucose (UA) (Negative) Urine Ketones (Negative) Urine Blood (Negative) Urine Nitrite (Negative) Urine Bilirubin (Negative) Urine Urobilinogen (<2.0) mg/dL Ur Leukocyte Esterase (Negative) 05/03/20 05/03/20 Range/Units 03:04 03:10 WBC (3.8-10.6) k/uL RBC (4.30-5.90) m/uL Hgb (13.0-17.5) gm/dL Hct (39.0-53.0) % MCV (80.0-100.0) fL MCH (25.0-35.0) pg MCHC (31.0-37.0) g/dL RDW (11.5-15.5) % Plt Count (150-450) k/uL Neutrophils % % Lymphocytes % % Monocytes % % Eosinophils % % Basophils % % Neutrophils # (1.3-7.7) k/uL Lymphocytes # (1.0-4.8) k/uL Monocytes # (0-1.0) k/uL Eosinophils # (0-0.7) k/uL Basophils # (0-0.2) k/uL Macrocytosis Sodium (137-145) mmol/L Potassium (3.5-5.1) mmol/L Chloride (98-107) mmol/L Carbon Dioxide (22-30) mmol/L Anion Gap mmol/L BUN (9-20) mg/dL Creatinine (0.66-1.25) mg/dL Est GFR (CKD-EPI)AfAm (>60 ml/min/1.73 sqM) Est GFR (CKD-EPI)NonAf (>60 ml/min/1.73 sqM) Glucose (74-99) mg/dL POC Glucose (mg/dL) (75-99) mg/dL POC Glu Television Maintenance Worker ID Calcium (8.4-10.2) mg/dL Total Bilirubin (0.2-1.3) mg/dL AST (17-59) U/L ALT (4-49) U/L Alkaline Phosphatase (38-126) U/L Troponin I <0.012 (0.000-0.034) ng/mL Total Protein (6.3-8.2) g/dL Albumin (3.5-5.0) g/dL Urine Color Yellow Urine Appearance Clear (Clear) Urine pH 5.5 (5.0-8.0) Ur Specific [place] 1.029 (1.001-1.035) Urine Protein Trace H (Negative) Urine Glucose (UA) Negative (Negative) Urine Ketones Trace H (Negative) Urine Blood Negative (Negative) Urine Nitrite Negative (Negative) Urine Bilirubin Negative (Negative) Urine Urobilinogen 2.0 (<2.0) mg/dL Ur Leukocyte Esterase Negative (Negative) Disposition Clinical Impression: Hypertension Disposition: HOME SELF-CARE Condition: Good Instructions (If sedation given, give patient instructions): Hypertension (ED) Is patient prescribed a controlled substance at d/c from ED?: No Referrals: Tristin Phillips DO [Primary Care Provider] - 1-2 days
[2020-05-03 05:59] VITALS: BP 136/93; PULSE 90; TEMP 98.7
== END 2020-05-03 05:59 | disposition home or self-care (01) ==
LOC: EC 01:35
DX: I10 Essential (primary) hypertension (principal); F41.9 Anxiety disorder, unspecified; F32.9 Major depressive disorder, single episode, unspecified; F17.200 Nicotine dependence, unspecified, uncomplicated; Z86.73 Personal history of transient ischemic attack (TIA), and cerebral infarction without residual deficits; Z85.828 Personal history of other malignant neoplasm of skin; Z98.1 Arthrodesis status; Z79.890 Hormone replacement therapy; Z79.84 Long term (current) use of oral hypoglycemic drugs; Z79.02 Long term (current) use of antithrombotics/antiplatelets; Z79.1 Long term (current) use of non-steroidal anti-inflammatories (NSAID); Z79.899 Other long term (current) drug therapy; Z91.048 Other nonmedicinal substance allergy status; Z88.1 Allergy status to other antibiotic agents; Z91.041 Radiographic dye allergy status; Z88.5 Allergy status to narcotic agent; Z88.2 Allergy status to sulfonamides
CPT/HCPCS: 36415; 80053; 81003; 84484; 85025; 93005; 99283

== ENCOUNTER → 2020-06-26 | Outpatient (CLI) | payer OTHER ==
[2020-06-26 12:43] VITALS: BP 141/94; PULSE 86; RESP 16
--- NOTE | 2020-06-27 13:51 | P.PAINPG ---
Subjective Progress Note Date: 06/26/20 This is follow-up visit for this patient with a history of severe and chronic neck pain secondary to cervical spondylosis, failed back surgery syndrome cervical area , lumbar spondylosis with facet arthropathy, and myofascial pain syndrome and cervical area . Patients currently on [place] 10/325 every 6 hours , Lyrica 100 mg 3 times a day, Zanaflex 4 mg 3 times a day, Motrin 800 mg 2 times a day when necessary Patient denies any side effects of the medication, denies excessive drowsiness or sleepiness, denies suicidal ideation, and reports that the current pain medication is helping to control the pain ,and improve activity of daily living ,Patient denies any motor or sensory deficit , patient denies any fever or night sweats, denies any change in the bowel movements or urination Objective - Vital Signs Vital signs: Vital Signs Temp Pulse 86 06/26/20 12:34 Resp 16 06/26/20 12:34 BP 141/94 06/26/20 12:34 Pulse Ox 98 06/26/20 12:34 - Exam -Constitutiona : Cooperative , not in acute distress . -HEENT : nech : supple , no Lymphadenopathy , normal thyroid size . : eyes : no ptosis , no icterus, no photophobia . : ENT : normal of hearing , normal oropharynx , no Thrush . - Respiratory : Chest clear to auscultations Bilaterally , no wheezing , no Rhonchi . - Cardiovascula : regular rate and rhythem , S1 , S2 , no S3 , no S4. - Gastrointestina : abdomen soft no tenderness , bowel sounds , no organomegally . - Genitourinary : De[place]red . - neurologic : Cranial nerve II to XII intact , no focal neurological deffecit . -psychatric : alert , oriented X 3 , appropriate affect , intact judgment and insight . -Lymphatic : no Lymphadenopathy . - musculoskeltal : Cervical Spine motor stregnth in the deltoid and biceps, normal right side , normal Left side motor stregnth biceps and the wrist extensors normal right side ,normal left side . motor stregnth in the triceps muscle . normal Right side , normal Left side deep tendon reflexes normal at the biceps , normal at Brachioradialis , normal at triceps. cervical facet loading test: Positive Bilaterally Spurling test positive bilaterally. Neck distraction test positive bilaterally. Randy sign positive bilaterally. Multiple trigger points in the cervical paraspinal muscles Lumber spine moter stegnth lower extremities ,thigh and legs 5/5 Right side , 5/5 Left side Assessment and Plan Plan: Chronic neck pain secondary to cervical spondylosis with cervical facet arthropathy, failed back surgery syndrome and cervical area Neck pain increased recently, currently reported that the numbness and tingling sensation increased chronic low back pain secondary to lumbar degenerative disc disease , lumbar spondylosis with lumbar facet arthropathy . chronic and current use of high-risk medication (opioids) Patient denies any side effects of the current pain medication and the current treatment/medication helping the patient to do activity of daily living , Diagnoses, prognosis, treatment options, including but not limited to physical therapy, medication management, interventional therapies, and surgery, were discussed with the patient All the questions answered The narcotic consent was signed and patient agreed and understood the side effects and complications of opioid treatment. Patient signed the narcotic agreement, and was orally counseled, not to overuse, not to abuse, not to Divert , not tp sell pain medication, and to take it as prescribed only, Patient was counseled not to drive or operate heavy equipment while using narcotic medication, and advised not to use alcohol or any Illicit drugs while using the narcotis. understanding that lack of compliance with any of the above instructions, will likely to cause discharge from, the pain service, not to renew his narcotic prescriptions [facility] Reviwed and it was apropriate . Medication managements= patient will be given prescription refills for [place] 10/325 every 6 hours dispensed 90 with one refill, Lyrica 100 mg 3 times a day Zanaflex 4 mg 3 times a day. Procedure= patient could benefit from cervical epidural steroid injection under fluoroscopy guidance at C7-T1 Patient had to hold Plavix for 7 days before the procedure Time with Patient: Less than 30 PQRS Measure Charge Sheet Measure #130: Documentation of Current Meds in Medical Chart: Patient's medications documented in chart Measure #226: Tobacco Use: Screen & Cessation Intervention: Pt screened for tobacco use AND intervention given Measure #111: Pneumonia Vaccination: Pneumococcal vaccine administered or previ ously received Measure #47: Advance Care Plan: Advance care planning discussed & documented, pt chose/unable to give Measure #412: Opioid Treatment Agreement: Documented signed opioid trtmnt agreemnt min once during opioid trtmnt Measure #408: Opioid Therapy Follow-up Evaluation: Patient had f/u eval minimum every 3 months during opioid therapy Measure #317: Preventitive Care & Scrn High Bld Press & F/U: Pre-hypertensive or hypertensive BP documented, pt will f/u with PCP Measure #128: Body Mass Index (BMI) Screening & Follow-up: BMI documented ABOVE normal parameters - f/u documented Measure #131: Pain Assessment & Follow-up: Pain positive & plan documented, Follow-up scheduled Measure #431: Unhealthy Alcohol Use Preventative Care & Scrn: Patient not identified as an unhealthy alcohol user PQRS Narrative: Smoking Status Current every day smoker Narcotic Agreement Date Signed 06/26/20 Blood Pressure 141/94 Pain Intensity [Left Shoulder] 7 Pain Intensity [Back] 9 Pain Intensity [Bilateral Neck 8 ] Scale Used Numeric (1 - 10) Hx Alcohol Use (MH) No Home Medications: Ambulatory Orders Atorvastatin [Lipitor] 10 mg PO HS 04/16/14 Ergocalciferol [Vitamin D2 (DRISDOL)] 50,000 unit PO MO 07/09/14 DULoxetine HCL [Cymbalta] 60 mg PO DAILY 12/31/14 Tamsulosin HCl [Flomax] 0.4 mg PO HS 12/31/14 Albuterol Inhaler (Mhu) [Ventolin Hfa Inhaler] 2 puff INHALATION RT-Q4H PRN 11/17/18 Albuterol Nebulized [Ventolin Nebulized] 2.5 mg INHALATION RT-BID PRN 11/17/18 Cetirizine HCl [Zyrtec] 10 mg PO DAILY 11/17/18 Levothyroxine Sodium [Synthroid] 88 mcg PO DAILY 11/17/18 Losartan Potassium 100 mg PO DAILY 11/17/18 Testosterone Cypionate [Depo-Testosterone] 200 mg IM Q14D 11/17/18 metFORMIN HCL 1,000 mg PO BID 11/17/18 traZODone HCL 100 mg PO HS 11/17/18 Metoprolol Succinate 200 mg PO DAILY 01/04/19 Ferrous Sulfate [Feosol] 325 mg PO DAILY 07/06/19 Cariprazine HCl [Vraylar] 1.5 mg PO DAILY 11/21/19 buPROPion HCL [Wellbutrin XL] 300 mg PO DAILY 01/03/20 Clopidogrel [Plavix] 75 mg PO DAILY 04/02/20 Fenofibrate [Lofibra] 54 mg PO HS 04/30/20 Meloxicam [Mobic] 15 mg PO DAILY 04/30/20 Spironolactone [Aldactone] 25 mg PO DAILY 04/30/20 Famotidine 20 mg PO BID 06/24/20 Ipratropium [place] [Atrovent Hfa] 2 puff INHALATION QID PRN 06/24/20 Omeprazole 40 mg PO HS 06/24/20 hydrALAZINE HCL 25 mg PO TID 06/24/20 hydroCHLOROthiazide 25 mg PO DAILY 06/24/20 HYDROcodone/APAP 10-325MG [[place] 10-325] 1 tab PO Q8H PRN 30 Days #90 tab 06/26/20 HYDROcodone/APAP 10-325MG [[place] 10-325] 1 tab PO Q8HR PRN 30 Days #90 tab 06/26/20 Pregabalin [Lyrica] 100 mg PO TID 30 Days #90 cap 06/26/20 tiZANidine [Zanaflex] 4 mg PO TID PRN #90 tab 06/26/20 Controlled Substance Measures - Controlled Substance Measures Is patient prescribed a controlled substance at discharge?: Yes
== END | disposition home or self-care (01) ==
LOC: PNWHC3 12:20
PROVIDERS: ATTEND Specialist
DX: M47.812 Spondylosis without myelopathy or radiculopathy, cervical region (principal); M46.92 Unspecified inflammatory spondylopathy, cervical region; M96.1 Postlaminectomy syndrome, not elsewhere classified; G89.29 Other chronic pain; M51.36 Other intervertebral disc degeneration, lumbar region; M47.816 Spondylosis without myelopathy or radiculopathy, lumbar region; M46.96 Unspecified inflammatory spondylopathy, lumbar region; F17.200 Nicotine dependence, unspecified, uncomplicated; Z79.899 Other long term (current) drug therapy; Z79.891 Long term (current) use of opiate analgesic; Z79.890 Hormone replacement therapy; Z79.84 Long term (current) use of oral hypoglycemic drugs
CPT/HCPCS: 99211

== ENCOUNTER 2020-07-11 07:04 | Day surgery (SDC) | payer OTHER ==
[2020-07-09 11:36] VITALS: BMI 32.8
[2020-07-11 07:22] VITALS: TEMP 98.5
[2020-07-11 07:29] LABS: Glucose,Whole Blood 109 mg/dL (75-99)
[2020-07-11] MEDS ORDERED: MIDAZOLAM 2 MG/2 ML VIAL ONE (07:36)
[2020-07-11] MEDS ORDERED: SODIUM CHLORIDE 0.9% (PF) 10 ML VIAL ONE (07:36)
[2020-07-11] MEDS ORDERED: DEXAMETHASONE SOD PHOSPHATE 10 MG/ML 1 ML VIAL ONE (07:36)
[2020-07-11] MEDS ORDERED: fentaNYL (PF) 50 MCG/ML 2 ML AMP ONE (07:36)
--- NOTE | 2020-07-11 07:57 | P.PCN ---
Date of Procedure: 07/11/20 Procedure(s) Performed: . PROCEDURE 1. Cervical epidural steroid injection under fluoroscopic guidance, C5-6 (fluoroscopy images available in the radiology department PREOPERATIVE DIAGNOSIS: 1-failed back surgery syndrome cervical area 2- Cervical radiculopathy., 3-cervical spondylosis with cervical Facet arthropathy without myelopathy POSTOPERATIVE DIAGNOSIS: : 1-failed back surgery syndrome cervical area , 2- Cervical radiculopathy. 3-,cervical spondylosis with cervical Facet arthropat hy without myelopathy ANESTHESIA: Local anesthesia with lidocaine 1 % , and moderate sedation, with Versed 2 mg and Fentanyl 100 mcg. EBL 0 PROCEDURE INDICATION: The patient with neck pain and radiculitis unresponsive to conservative treatment consents for procedure. PROCEDURE DESCRIPTION / TECHNIQUE: The patient was seen and identified in the preoperative area. Risks, benefits, complications, including but not limited to infections ,bleeding , allergic reactions to the medications ,and not complete pain releife, and alternatives were discussed with the patient, the patient agreed to proceed with the procedure and signed the consent. Patient was taken to the OR and time out was completed. The patient was placed in the prone position on the procedure table. A pillow was placed under the patients chest to increase the cervical interlaminar space. The cervical area was prepped and draped in the usual sterile fashion. Vital signs were closely monitored during the procedure. Conscious sedation was used during the procedure to decrease patients anxiety. Using anterior-posterior fluoroscopy, the C5-6 interlaminar space was identified and the skin over this site was marked and then infiltrated with 1% lidocaine subcutaneously. Subsequently, a 20-gauge 3-1/2-inch Tuohy epidural needle was inserted and advanced toward the epidural space by means of the ``hanging-drop technique and guided by AP and lateral fluoroscopy. The correct needle position in the epidural space was verified with the AP and lateral view, Isovue was not injected because patient had ALLERGY to IVP dye, after negative aspiration for blood and CSF and in the absence of paresthesias. Again after negative aspiration, mixture containing 15 mg Dexamethasone and 2 ml of preservative- free normal saline injected . Needle was withdrawn intact, skin was cleansed, and bandages were applied. Complications= none. Disposition= patient was placed in supine position and transferred to the recovery room area in stable condition and there was no evidence of upper or lower extremity motor or sensory deficit after the procedure patient was discharged from recovery room after discharge criteria met and home discharge instructions was given by the staff and patient will follow with the pain clinic in 2-4 weeks
[2020-07-11] MEDS ORDERED: IV FLUID CONTINUATION 1,000 ML IV ONE (07:59)
[2020-07-11 08:22] VITALS: BP 101/71; PULSE 87; RESP 18
--- NOTE | 2020-07-11 08:32 | FL ---
Fluoroscopy History: CERV EPIDURAL STEROID Dr. Jenkins supervised use of sancho for a cerv epidural steroid inj. fl time 0.17 mins
== END 2020-07-11 08:38 | disposition home or self-care (01) ==
LOC: ORPAIN 07:04
PROVIDERS: ATTEND Specialist
DX: M47.22 Other spondylosis with radiculopathy, cervical region (principal); M96.1 Postlaminectomy syndrome, not elsewhere classified; Z91.041 Radiographic dye allergy status; Z91.048 Other nonmedicinal substance allergy status; Z88.8 Allergy status to other drugs, medicaments and biological substances; Z79.02 Long term (current) use of antithrombotics/antiplatelets; E11.9 Type 2 diabetes mellitus without complications
CPT/HCPCS: 62321; J2250; J1100; J3010; 99152

== ENCOUNTER → 2020-08-21 | Outpatient (CLI) | payer OTHER ==
[2020-08-21 10:41] VITALS: PULSE 85; RESP 18; TEMP 97.7
--- NOTE | 2020-08-21 10:57 | P.PN ---
Subjective Progress Note Date: 08/21/20 This is follow-up visit for this patient with a history of severe and chronic neck pain secondary to cervical spondylosis, failed back surgery syndrome cervical area , lumbar spondylosis with facet arthropathy, and myofascial pain syndrome and cervical area . Patients currently on [place] 10/325 every 8 hours , Lyrica 100 mg 3 times a day, Zanaflex 4 mg 3 times a day, Motrin 800 mg 2 times a day when necessary Patient denies any side effects of the medication, denies excessive drowsiness or sleepiness, denies suicidal ideation, and reports that the current pain medication is helping to control the pain ,and improve activity of daily living ,Patient denies any motor or sensory deficit , patient denies any fever or night sweats, denies any change in the bowel movements or urination A few weeks ago we have done cervical epidural steroid injection, he reported that he had no benefit from it and he continued to have severe neck pain, the pain is constant and increases with any neck movement, more prominent on the left side Objective - Vital Signs Vital signs: Vital Signs Temp 97.7 F 08/21/20 10:37 Pulse 85 08/21/20 10:37 Resp 18 08/21/20 10:37 BP Pulse Ox 96 08/21/20 10:37 - Exam -Constitutiona : Cooperative , not in acute distress . -HEENT : nech : supple , no Lymphadenopathy , normal thyroid size . : eyes : no ptosis , no icterus, no photophobia . : ENT : normal of hearing , normal oropharynx , no Thrush . - Respiratory : Chest clear to auscultations Bilaterally , no wheezing , no Rhonchi . - Cardiovascula : regular rate and rhythem , S1 , S2 , no S3 , no S4. - Gastrointestina : abdomen soft no tenderness , bowel sounds , no organomegally . - Genitourinary : Defferred . - neurologic : Cranial nerve II to XII intact , no focal neurological deffecit . -psychatric : alert , oriented X 3 , appropriate affect , intact judgment and insight . -Lymphatic : no Lymphadenopathy . - musculoskeltal : Cervical Spine motor stregnth in the deltoid and biceps, normal right side , normal Left side motor stregnth biceps and the wrist extensors normal right side ,normal left side . motor stregnth in the triceps muscle . normal Right side , normal Left side deep tendon reflexes normal at the biceps , normal at Brachioradialis , normal at triceps. cervical facet loading test: Positive Bilaterally Spurling test positive bilaterally. Neck distraction test positive bilaterally. Randy sign positive bilaterally. Multiple trigger points in the cervical paraspinal muscles Lumber spine moter stegnth lower extremities ,thigh and legs 5/5 Right side , 5/5 Left side Assessment and Plan Plan: Assessment and plan= Chronic neck pain secondary to cervical spondylosis with cervical facet arthropathy, failed back surgery syndrome and cervical area Neck pain increased recently, currently reported that the numbness and tingling sensation increased chronic low back pain secondary to lumbar degenerative disc disease , lumbar spondylosis with lumbar facet arthropathy . chronic and current use of high-risk medication (opioids) Patient denies any side effects of the current pain medication and the current treatment/medication helping the patient to do activity of daily living , Diagnoses, prognosis, treatment options, including but not limited to physical therapy, medication management, interventional therapies, and surgery, were discussed with the patient All the questions answered The narcotic consent was signed and patient agreed and understood the side effects and complications of opioid treatment. Patient signed the narcotic agreement, and was orally counseled, not to overuse, not to abuse, not to Divert , not tp sell pain medication, and to take it as prescribed only, Patient was counseled not to drive or operate heavy equipment while using narcotic medication, and advised not to use alcohol or any Illicit drugs while using the narcotis. understanding that lack of compliance with any of the above instructions, will likely to cause discharge from, the pain service, not to renew his narcotic prescriptions [facility] Reviwed and it was apropriate . Medication managements= patient will be given prescription refills for [place] 10/325 every 6 hours dispensed 90 with one refill, Lyrica 100 mg 3 times a day Zanaflex 4 mg 3 times a day. Procedure= patient could benefit from cervical medial branch block at C3 , C4 , C5 bilateral x2 and possible RFA Patient had to hold Plavix for 7 days before the procedure Time with Patient: Less than 30 PQRS Measure Charge Sheet Measure #130: Documentation of Current Meds in Medical Chart: Patient's medica tions documented in chart Measure #226: Tobacco Use: Screen & Cessation Intervention: Pt screened for tobacco use AND intervention given Measure #111: Pneumonia Vaccination: Pneumococcal vaccine administered or previously received Measure #47: Advance Care Plan: Advance care planning discussed & documented, pt chose/unable to give Measure #412: Opioid Treatment Agreement: Documented signed opioid trtmnt agreemnt min once during opioid trtmnt Measure #408: Opioid Therapy Follow-up Evaluation: Patient had f/u eval minimum every 3 months during opioid therapy Measure #317: Preventitive Care & Scrn High Bld Press & F/U: Pre-hypertensive or hypertensive BP documented, pt will f/u with PCP Measure #128: Body Mass Index (BMI) Screening & Follow-up: BMI documented ABOVE normal parameters - f/u documented Measure #131: Pain Assessment & Follow-up: Pain positive & plan documented, Follow-up scheduled Measure #431: Unhealthy Alcohol Use Preventative Care & Scrn: Patient not identified as an unhealthy alcohol user PQRS Narrative: Time with Patient: Less than 30
== END | disposition home or self-care (01) ==
LOC: PNWHC3 10:25
PROVIDERS: ATTEND Specialist
DX: M96.1 Postlaminectomy syndrome, not elsewhere classified (principal); M47.812 Spondylosis without myelopathy or radiculopathy, cervical region; M47.816 Spondylosis without myelopathy or radiculopathy, lumbar region; M51.36 Other intervertebral disc degeneration, lumbar region; G89.29 Other chronic pain; Z79.891 Long term (current) use of opiate analgesic; Z79.899 Other long term (current) drug therapy
CPT/HCPCS: 99211

== ENCOUNTER 2020-10-11 08:45 | Day surgery (SDC) | payer OTHER ==
[2020-10-10 11:55] VITALS: BMI 33.3
[2020-10-11 09:05] VITALS: TEMP 96.9
[2020-10-11] MEDS ORDERED: LIDOCAINE 1% (10MG/ML) FOR IV START INTRADERMA ONE (09:18)
[2020-10-11 09:22] LABS: Glucose,Whole Blood 137 mg/dL (75-99)
[2020-10-11] MEDS ORDERED: methylPREDNISolone ACETATE 40 MG/ML 1 ML VIAL ONE (09:27)
[2020-10-11] MEDS ORDERED: MIDAZOLAM 2 MG/2 ML VIAL ONE (09:27)
[2020-10-11] MEDS ORDERED: ROPIVACAINE 5MG/ML 20ML VIAL ONE (09:27)
[2020-10-11] MEDS ORDERED: TRIAMCINOLONE ACETONIDE 40 MG/ML 1 ML VIAL ONE (09:27)
--- NOTE | 2020-10-11 09:54 | P.PCN ---
Date of Procedure: 10/11/20 Procedure(s) Performed: PREOPERATIVE DIAGNOSIS: Cervical Spondylosis with Facet Arthropathy.without myelopathy POSTOPERATIVE DIAGNOSIS: Cervical Spondylosis Facet Arthropathy. Without myelopathy PROCEDURES: Diagnostic , bilateral. C3, C4 , C5 medial branch blocks, with fluoroscopic guidance (fluoroscopy images available in radiology department ) ( to target the facet joint at bilateral C3-4 , C4- 5 ) ANESTHESIA: Monitored anesthesia care provided by anesthesia department EBL: Minimal PROCEDURE INDICATION: The patient with neck pain secondary to cervical arthropathy unresponsive to more conservative treatments. PROCEDURE DESCRIPTION / TECHNIQUE: The patient was seen and identified in the preoperative area. Risks, benefits, complications, and alternatives were discussed with the patient, the patient agreed to proceed with the procedure and signed the consent. IV was started. Vital signs remained stable throughout the procedure. Patient was taken to the OR and time out was completed. The patient was placed in the prone position on the procedure table. A pillow was placed under the patients chest to increase the cervical interlaminar space. The cervical area was prepped and draped in the usual sterile fashion. Critical pause was taken. Vital signs were closely monitored during the procedure. Conscious sedation was used during the procedure to decrease patients anxiety. Using cross-table lateral fluoroscopy, the centroid of the trapezoid of right C3, C4 , C5, was identified, marked, and localized with 1% lidocaine 1 ml at each level for skin and Sub Q infiltrations . Subsequently, a 22 G 3 spinal needle was advanced guided by fluoroscopy to the centroid of the trapezoid of Right C3, C4 , C5, . [place] tip position was confirmed at the centroid of the trapezoids of Right C3 , C4 , C5 , with anteroposterior fluoroscopy. Subsequently, 2 ml of preservative-free Ropivacaine 0.5% mixed with Depo- Medrol 20 mg and half ml of the mixture was injected after negative aspiration for blood and CSF. [place] was then removed intact the same procedure was repeated at the left C3 , C4 , C5 levels. COMPLICATIONS: No acute complications. DISPOSITION / PLANS: The patient was placed in a supine position and transferred to the recovery area in a stable condition for observation and was discharged from the recovery room after meeting discharge criteria. Home discharge instructions given to the patient by the staff. The patient was reexamined prior to discharge. The patient will schedule a follow up in the clinic in 2-4 weeks.
[2020-10-11] MEDS ORDERED: IV FLUID CONTINUATION 600 ML IV ONE (09:55)
[2020-10-11 10:02] VITALS: RESP 16
[2020-10-11 10:18] VITALS: BP 105/67; PULSE 87
--- NOTE | 2020-10-11 13:09 | FL ---
Fluoroscopy HISTORY: Pain 30 seconds fluoroscopy time supplied to the referring clinician. 3 intraoperative C-arm images docum ent the procedure. See dictated report from anesthesia.
== END 2020-10-11 10:38 | disposition home or self-care (01) ==
LOC: ORPAIN 08:45
PROVIDERS: ATTEND Specialist
DX: M47.812 Spondylosis without myelopathy or radiculopathy, cervical region (principal); E11.9 Type 2 diabetes mellitus without complications; K21.9 Gastro-esophageal reflux disease without esophagitis; E07.9 Disorder of thyroid, unspecified; Z88.2 Allergy status to sulfonamides; Z91.048 Other nonmedicinal substance allergy status; Z91.041 Radiographic dye allergy status; Z88.5 Allergy status to narcotic agent; Z79.890 Hormone replacement therapy; Z79.02 Long term (current) use of antithrombotics/antiplatelets; Z79.84 Long term (current) use of oral hypoglycemic drugs; Z79.1 Long term (current) use of non-steroidal anti-inflammatories (NSAID); Z79.899 Other long term (current) drug therapy; Z86.73 Personal history of transient ischemic attack (TIA), and cerebral infarction without residual deficits; F17.200 Nicotine dependence, unspecified, uncomplicated
CPT/HCPCS: 64490; 64491; J2250

== ENCOUNTER → 2020-10-16 | Outpatient (CLI) | payer OTHER ==
[2020-10-16 12:41] VITALS: BP 146/96; PULSE 87; RESP 16; TEMP 98
--- NOTE | 2020-10-16 13:08 | P.PN ---
Subjective Progress Note Date: 10/16/20 This is follow-up visit for this patient with a history of severe and chronic neck pain secondary to cervical spondylosis, failed back surgery syndrome cervical area , lumbar spondylosis with facet arthropathy, and myofascial pain syndrome and cervical area . Patients currently on [place] 10/325 every 8 hours , Lyrica 100 mg 3 times a day, Zanaflex 4 mg 3 times a day. Patient denies any side effects of the medication, denies excessive drowsiness or sleepiness, denies suicidal ideation, and reports that the current pain medication is helping to control the pain ,and improve activity of daily living ,Patient denies any motor or sensory deficit , patient denies any fever or night sweats, denies any change in the bowel movements or urination A few weeks ago we have done cervical epidural steroid injection, he reported that he had no benefit from it and he continued to have severe neck pain, the pain is constant and increases with any neck movement, previously with done cervical epidural steroid injection , and patient continued to have neck pain, and recently we've done diagnostic medial branch block cervical area, she reported that his neck pain was the same before and after the injection he has 0 benefit from it. Objective - Vital Signs Vital signs: Vital Signs Temp 98.0 F 10/16/20 12:37 Pulse 87 10/16/20 12:37 Resp 16 10/16/20 12:37 BP 146/96 10/16/20 12:37 Pulse Ox 98 10/16/20 12:37 Intake & Output 10/15/20 10/16/20 10/16/20 18:59 06:59 18:59 Weight 90.718 kg - Exam -Constitutiona : Cooperative , not in acute distress . -HEENT : nech : supple , no Lymphadenopathy , normal thyroid size . : eyes : no ptosis , no icterus, no photophobia . - neurologic : Cranial nerve II to XII intact , no focal neurological deffecit . -psychatric : alert , oriented X 3 , appropriate affect , intact judgment and insight . -Lymphatic : no Lymphadenopathy . - musculoskeltal : Cervical Spine motor stregnth in the deltoid and biceps, normal right side , normal Left side motor stregnth biceps and the wrist extensors normal right side ,normal left side . motor stregnth in the triceps muscle . normal Right side , normal Left side deep tendon reflexes normal at the biceps , normal at Brachioradialis , normal at triceps. cervical facet loading test: Positive Bilaterally Spurling test positive bilaterally. Neck distraction test positive bilaterally. Randy sign positive bilaterally. Multiple trigger points in the cervical paraspinal muscles Lumber spine moter stegnth lower extremities ,thigh and legs 5/5 Right side , 5/5 Left side Assessment and Plan Plan: Assessment and plan= Chronic neck pain secondary to cervical spondylosis with cervical facet arthropathy, failed back surgery syndrome and cervical area Neck pain increased recently, currently reported that the numbness and tingling sensation increased chronic low back pain secondary to lumbar degenerative disc disease , lumbar spondylosis with lumbar facet arthropathy . chronic and current use of high-risk medication (opioids) Patient denies any side effects of the current pain medication and the current treatment/medication helping the patient to do activity of daily living , Diagnoses, prognosis, treatment options, including but not limited to physical therapy, medication management, interventional therapies, and surgery, were discussed with the patient All the questions answered The narcotic consent was signed and patient agreed and understood the side effects and complications of opioid treatment. Patient signed the narcotic agreement, and was orally counseled, not to overuse, not to abuse, not to Divert , not tp sell pain medication, and to take it as prescribed only, Patient was counseled not to drive or operate heavy equipment while using narcotic medication, and advised not to use alcohol or any Illicit drugs while using the narcotis. understanding that lack of compliance with any of the above instructions, will likely to cause discharge from, the pain service, not to renew his narcotic prescriptions [facility] Reviwed and it was apropriate . Medication managements= patient will be given prescription refills for [place] 10/325 every 6 hours dispensed 90 with one refill, Lyrica 100 mg 3 times a day Zanaflex 4 mg 3 times a day. Procedure= patient had no benefit from cervical medial branch block , and we will cancel the next procedure Time with Patient: Less than 30 PQRS Measure Charge Sheet Measure #130: Documentation of Current Meds in Medical Chart: Patient's medications documented in chart Measure #226: Tobacco Use: Screen & Cessation Intervention: Pt screened for tobacco use AND intervention given Measure #111: Pneumonia Vaccination: Pneumococcal vaccine administered or previously received Measure #47: Advance Care Plan: Advance care planning discussed & documented, pt chose/unable to give Measure #412: Opioid Treatment Agreement: Documented signed opioid trtmnt agreemnt min once during opioid trtmnt Measure #408: Opioid Therapy Follow-up Evaluation: Patient had f/u eval minimum every 3 months during opioid therapy Measure #317: Preventitive Care & Scrn High Bld Press & F/U: Pre-hypertensive or hypertensive BP documented, pt will f/u with PCP Measure #128: Body Mass Index (BMI) Screening & Follow-up: BMI documented ABOVE normal parameters - f/u documented Measure #131: Pain Assessment & Follow-up: Pain positive & plan documented, Follow-up scheduled Measure #431: Unhealthy Alcohol Use Preventative Care & Scrn: Patient not identified as an unhealthy alcohol user PQRS Narrative: Time with Patient: Less than 30 Time with Patient: Less than 30
== END | disposition home or self-care (01) ==
LOC: PNWHC3 12:12
PROVIDERS: ATTEND Specialist
DX: M47.812 Spondylosis without myelopathy or radiculopathy, cervical region (principal); M96.1 Postlaminectomy syndrome, not elsewhere classified; M51.36 Other intervertebral disc degeneration, lumbar region; M47.816 Spondylosis without myelopathy or radiculopathy, lumbar region
CPT/HCPCS: 99211

== ENCOUNTER 2020-10-27 22:17 | Emergency (ER) | payer OTHER ==
[2020-10-27 22:29] VITALS: TEMP 97.8
--- NOTE | 2020-10-27 22:36 | ED ---
GI Bleed HPI - General Stated complaint: Blood in stool Time Seen by Provider: 10/27/20 22:29 Source: patient Mode of arrival: ambulatory Limitations: no limitations - History of Present Illness Initial comments: This patient is a 50-year-old man who presents to be evaluated for suspected GI bleeding. The patient states that starting earlier today he noticed he was having dark nearly black stools. He phoned the on-call number for his physician after it happened a few times and was advised to be seen here. The patient does note that he takes Plavix after having had a stroke. The patient denies vomiting or hematemesis. No bright red blood per rectum. No abdominal pain. The patient states he has intermittently had dark stools ever since he had an upper endoscopy over a year ago. MD complaint: melena Onset/Timin -: days(s) Severity scale (1-10): 0 Quality: painless Consistency: constant Improves with: none Worsens with: none Context: history of GI bleed Associated Symptoms: denies other symptoms Treatments Prior to Arrival: none - Related Data Home Medications Medication Instructions Recorded Confirmed Atorvastatin [Lipitor] 10 mg PO HS 04/16/14 10/16/20 Ergocalciferol [Vitamin D2 50,000 unit PO MO 07/09/14 10/16/20 (DRISDOL)] DULoxetine HCL [Cymbalta] 60 mg PO DAILY 12/31/14 10/16/20 Tamsulosin HCl [Flomax] 0.4 mg PO HS 12/31/14 10/16/20 Albuterol Inhaler (Mhu) [Ventolin 2 puff INHALATION RT-Q4H PRN 11/17/18 10/16/20 Hfa Inhaler] Albuterol Nebulized [Ventolin 2.5 mg INHALATION RT-BID PRN 11/17/18 10/16/20 Nebulized] Cetirizine HCl [Zyrtec] 10 mg PO DAILY 11/17/18 10/16/20 Levothyroxine Sodium [Synthroid] 88 mcg PO DAILY 11/17/18 10/16/20 Losartan Potassium 100 mg PO DAILY 11/17/18 10/16/20 Testosterone Cypionate 200 mg IM Q14D 11/17/18 10/16/20 [Depo-Testosterone] metFORMIN HCL 1,000 mg PO BID 11/17/18 10/16/20 traZODone HCL 100 mg PO HS 11/17/18 10/16/20 Metoprolol Succinate 200 mg PO DAILY 01/04/19 10/16/20 Ferrous Sulfate [Feosol] 325 mg PO DAILY 07/06/19 10/16/20 Cariprazine HCl [Vraylar] 1.5 mg PO DAILY 11/21/19 10/16/20 buPROPion HCL [Wellbutrin XL] 300 mg PO DAILY 01/03/20 10/16/20 Clopidogrel [Plavix] 75 mg PO DAILY 04/02/20 10/16/20 Fenofibrate [Lofibra] 54 mg PO HS 04/30/20 10/16/20 Meloxicam [Mobic] 15 mg PO DAILY 04/30/20 10/16/20 Spironolactone [Aldactone] 25 mg PO DAILY 04/30/20 10/16/20 Famotidine 20 mg PO BID 06/24/20 10/16/20 Ipratropium [place] [Atrovent Hfa] 2 puff INHALATION QID PRN 06/24/20 10/16/20 hydrALAZINE HCL 25 mg PO TID 06/24/20 10/16/20 hydroCHLOROthiazide 25 mg PO DAILY 06/24/20 10/16/20 Pantoprazole Sodium [Protonix] 40 mg PO BID 10/10/20 10/16/20 Previous Rx's Medication Instructions Recorded HYDROcodone/APAP 10-325MG [[place] 1 tab PO Q8H PRN 30 Days #90 tab 10/16/20 10-325] HYDROcodone/APAP 10-325MG [[place] 1 tab PO Q8HR PRN 30 Days #90 tab 10/16/20 10-325] Pregabalin [Lyrica] 100 mg PO TID 30 Days #90 cap 10/16/20 tiZANidine [Zanaflex] 4 mg PO TID PRN #90 tab 10/16/20 Allergies Allergy/AdvReac Type Severity Reaction Status Date / Time adhesive tape Allergy Rash/Hives Verified 10/27/20 22:25 cefaclor [From Ceclor] Allergy Rash/Hives Verified 10/27/20 22:25 Iodinated Contrast Media Allergy Rash/Hives,throat Verified 10/27/20 22:25 [Iodinated Contrast Media - swelling IV Dye] propoxyphene napsylate Allergy Rash/Hives Verified 10/27/20 22:25 [From Darvocet-N 100] Sulfa (Sulfonamide Allergy Dyspnea Verified 10/27/20 22:25 Antibiotics) sulfamethoxazole Allergy Rapid Verified 10/27/20 22:25 [From Bactrim] Heart Rate trimethoprim [From Bactrim] Allergy Rapid Verified 10/27/20 22:25 Heart Rate Review of Systems ROS Statement: Those systems with pertinent positive or pertinent negative responses have been documented in the HPI. ROS Other: All systems not noted in ROS Statement are negative. Constitutional: Denies: fever, chills Respiratory: Denies: cough, dyspnea Cardiovascular: Reports: edema (Chronic). Denies: chest pain, palpitations, syncope Gastrointestinal: Reports: melena. Denies: abdominal pain, nausea, vomiting, diarrhea, constipation, hematemesis, hematochezia Genitourinary: Denies: dysuria, hematuria Musculoskeletal: Denies: back pain Skin: Denies: rash Neurological: Denies: headache, weakness, numbness Hematological/Lymphatic: Reports: other (Taking Plavix) Past Medical History Past Medical History: Cancer, Heart Failure, CVA/TIA, GERD/Reflux, Hypertension, Skin Disorder Additional Past Medical History / Comment(s): TMJ, sinus problems, eczema, kidney stones, diverticulitis, ulcers, abd. pain, back pain, implants, fractures, physical limitations, numbness and tingling both legs and both hands. Uses a cane at times. Removal of skin cancer. DX WITH HYPERREFLEXIA, "Swollen nerves in eyes." CVA NOV 2018, WBC count high seeing Dr. Luna. 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 PVD History of Any Multi-Drug Resistant Organisms: None Reported Past Surgical History: Adenoidectomy, Hernia Repair, Orthopedic Surgery, Tonsillectomy Additional Past Surgical History / Comment(s): Neck fusion, colonoscopy, left knee arthroscopy, bilateral carpal tunnel surgery, PAIN CLINIC INJECTIONS, BILAT CUBITAL SX ON ELBOWS, EGD. Past Anesthesia/Blood Transfusion Reactions: No Reported Reaction Past Psychological History: Anxiety, Depression Smoking Status: Current every day smoker Past Alcohol Use History: None Reported Past Drug Use History: None Reported - Past Family History Mother Family Medical History: Cancer Father Family Medical History: Cancer General Exam Limitations: no limitations General appearance: alert, in no apparent distress Head exam: Present: atraumatic, normocephalic Eye exam: Present: normal appearance. Absent: scleral icterus, conjunctival injection ENT exam: Present: normal oropharynx Neck exam: Present: normal inspection Respiratory exam: Present: normal lung sounds bilaterally. Absent: respiratory distress, wheezes, rales, rhonchi, stridor Cardiovascular Exam: Present: regular rate, normal rhythm, normal heart sounds. Absent: systolic murmur, diastolic murmur, rubs, gallop GI/Abdominal exam: Present: soft. Absent: distended, tenderness, guarding, rebound, rigid, mass, pulsatile mass, hernia Extremities exam: Present: normal inspection, normal capillary refill. Absent: pedal edema, calf tenderness Back exam: Present: normal inspection. Absent: CVA tenderness (R), CVA [place] (L) Neurological exam: Present: alert Skin exam: Present: warm, dry, intact, normal color. Absent: rash Course Vital Signs 10/27/20 10/28/20 22:26 01:51 Temperature 97.8 F Pulse Rate 117 H 84 Respiratory 18 19 Rate Blood Pressure 185/107 152/109 O2 Sat by Pulse 96 97 Oximetry Medical Decision Making - Lab Data Result diagrams: 10/27/20 22:51 10/27/20 22:51 Lab Results 10/27/20 10/27/20 10/27/20 Range/Units 22:47 22:51 22:51 WBC 14.1 H (3.8-10.6) k/uL RBC 4.69 (4.30-5.90) m/uL Hgb 14.9 (13.0-17.5) gm/dL Hct 47.5 (39.0-53.0) % MCV 101.4 H (80.0-100.0) fL MCH 31.8 (25.0-35.0) pg MCHC 31.4 (31.0-37.0) g/dL RDW 13.7 (11.5-15.5) % Plt Count 382 (150-450) k/uL MPV 8.6 Neutrophils % 71 % Lymphocytes % 19 % Monocytes % 6 % Eosinophils % 3 % Basophils % 1 % Neutrophils # 10.0 H (1.3-7.7) k/uL Lymphocytes # 2.6 (1.0-4.8) k/uL Monocytes # 0.8 (0-1.0) k/uL Eosinophils # 0.4 (0-0.7) k/uL Basophils # 0.1 (0-0.2) k/uL Macrocytosis Slight APTT 24.5 (22.0-30.0) sec Sodium (137-145) mmol/L Potassium (3.5-5.1) mmol/L Chloride (98-107) mmol/L Carbon Dioxide (22-30) mmol/L Anion Gap mmol/L BUN (9-20) mg/dL Creatinine (0.66-1.25) mg/dL Est GFR (CKD-EPI)AfAm (>60 ml/min/1.73 sqM) Est GFR (CKD-EPI)NonAf (>60 ml/min/1.73 sqM) Glucose (74-99) mg/dL Lactic Ac Sepsis Rflx Plasma Lactic Acid Rey (0.7-2.0) mmol/L Calcium (8.4-10.2) mg/dL Total Bilirubin (0.2-1.3) mg/dL AST (17-59) U/L ALT (4-49) U/L Alkaline Phosphatase (38-126) U/L Troponin I (0.000-0.034) ng/mL Total Protein (6.3-8.2) g/dL Albumin (3.5-5.0) g/dL Lipase (23-300) U/L Stool Occult Blood (Negative) Blood Type Blood Type Confirm O Positive Blood Type Recheck Bld Type Recheck Status Antibody Screen Spec Expiration Date 10/27/20 10/27/20 10/27/20 Range/Units 22:51 22:51 22:51 WBC (3.8-10.6) k/uL RBC (4.30-5.90) m/uL Hgb (13.0-17.5) gm/dL Hct (39.0-53.0) % MCV (80.0-100.0) fL MCH (25.0-35.0) pg MCHC (31.0-37.0) g/dL RDW (11.5-15.5) % Plt Count (150-450) k/uL MPV Neutrophils % % Lymphocytes % % Monocytes % % Eosinophils % % Basophils % % Neutrophils # (1.3-7.7) k/uL Lymphocytes # (1.0-4.8) k/uL Monocytes # (0-1.0) k/uL Eosinophils # (0-0.7) k/uL Basophils # (0-0.2) k/uL Macrocytosis APTT (22.0-30.0) sec Sodium 140 (137-145) mmol/L Potassium 4.3 (3.5-5.1) mmol/L Chloride 103 (98-107) mmol/L Carbon Dioxide 27 (22-30) mmol/L Anion Gap 10 mmol/L BUN 7 L (9-20) mg/dL Creatinine 1.15 (0.66-1.25) mg/dL Est GFR (CKD-EPI)AfAm 86 (>60 ml/min/1.73 sqM) Est GFR (CKD-EPI)NonAf 74 (>60 ml/min/1.73 sqM) Glucose 190 H (74-99) mg/dL Lactic Ac Sepsis Rflx Plasma Lactic Acid Rey 3.1 H* (0.7-2.0) mmol/L Calcium 10.4 H (8.4-10.2) mg/dL Total Bilirubin 0.3 (0.2-1.3) mg/dL AST 42 (17-59) U/L ALT 53 H (4-49) U/L Alkaline Phosphatase 54 (38-126) U/L Troponin I <0.012 (0.000-0.034) ng/mL Total Protein 7.3 (6.3-8.2) g/dL Albumin 4.7 (3.5-5.0) g/dL Lipase 53 (23-300) U/L Stool Occult Blood (Negative) Blood Type Blood Type Confirm Blood Type Recheck Bld Type Recheck Status Antibody Screen Spec Expiration Date 10/27/20 10/27/20 10/27/20 Range/Units 22:59 23:15 23:45 WBC (3.8-10.6) k/uL RBC (4.30-5.90) m/uL Hgb (13.0-17.5) gm/dL Hct (39.0-53.0) % MCV (80.0-100.0) fL MCH (25.0-35.0) pg MCHC (31.0-37.0) g/dL RDW (11.5-15.5) % Plt Count (150-450) k/uL MPV Neutrophils % % Lymphocytes % % Monocytes % % Eosinophils % % Basophils % % Neutrophils # (1.3-7.7) k/uL Lymphocytes # (1.0-4.8) k/uL Monocytes # (0-1.0) k/uL Eosinophils # (0-0.7) k/uL Basophils # (0-0.2) k/uL Macrocytosis APTT (22.0-30.0) sec Sodium (137-145) mmol/L Potassium (3.5-5.1) mmol/L Chloride (98-107) mmol/L Carbon Dioxide (22-30) mmol/L Anion Gap mmol/L BUN (9-20) mg/dL Creatinine (0.66-1.25) mg/dL Est GFR (CKD-EPI)AfAm (>60 ml/min/1.73 sqM) Est GFR (CKD-EPI)NonAf (>60 ml/min/1.73 sqM) Glucose (74-99) mg/dL Lactic Ac Sepsis Rflx Y Plasma Lactic Acid Rey (0.7-2.0) mmol/L Calcium (8.4-10.2) mg/dL Total Bilirubin (0.2-1.3) mg/dL AST (17-59) U/L ALT (4-49) U/L Alkaline Phosphatase (38-126) U/L Troponin I (0.000-0.034) ng/mL Total Protein (6.3-8.2) g/dL Albumin (3.5-5.0) g/dL Lipase (23-300) U/L Stool Occult Blood Negative (Negative) Blood Type O Positive Blood Type Confirm Blood Type Recheck No Previous Record Bld Type Recheck Status CABO Indicated Antibody Screen NEGATIVE Spec Expiration Date 10/30/2020 - 231410/28/20 Range/Units 01:53 WBC (3.8-10.6) k/uL RBC (4.30-5.90) m/uL Hgb (13.0-17.5) gm/dL Hct (39.0-53.0) % MCV (80.0-100.0) fL MCH (25.0-35.0) pg MCHC (31.0-37.0) g/dL RDW (11.5-15.5) % Plt Count (150-450) k/uL MPV Neutrophils % % Lymphocytes % % Monocytes % % Eosinophils % % Basophils % % Neutrophils # (1.3-7.7) k/uL Lymphocytes # (1.0-4.8) k/uL Monocytes # (0-1.0) k/uL Eosinophils # (0-0.7) k/uL Basophils # (0-0.2) k/uL Macrocytosis APTT (22.0-30.0) sec Sodium (137-145) mmol/L Potassium (3.5-5.1) mmol/L Chloride (98-107) mmol/L Carbon Dioxide (22-30) mmol/L Anion Gap mmol/L BUN (9-20) mg/dL Creatinine (0.66-1.25) mg/dL Est GFR (CKD-EPI)AfAm (>60 ml/min/1.73 sqM) Est GFR (CKD-EPI)NonAf (>60 ml/min/1.73 sqM) Glucose (74-99) mg/dL Lactic Ac Sepsis Rflx Plasma Lactic Acid Rey 1.2 (0.7-2.0) mmol/L Calcium (8.4-10.2) mg/dL Total Bilirubin (0.2-1.3) mg/dL AST (17-59) U/L ALT (4-49) U/L Alkaline Phosphatase (38-126) U/L Troponin I (0.000-0.034) ng/mL Total Protein (6.3-8.2) g/dL Albumin (3.5-5.0) g/dL Lipase (23-300) U/L Stool Occult Blood (Negative) Blood Type Blood Type Confirm Blood Type Recheck Bld Type Recheck Status Antibody Screen Spec Expiration Date - EKG Data -: EKG Interpreted by Me EKG shows normal: sinus rhythm, axis (Normal), intervals (Normal), QRS complexes (Normal), ST-T waves (Normal) Rate: tachycardia (Rate 110 bpm) Disposition Clinical Impression: Abdominal pain, Dehydration Disposition: HOME SELF-CARE Condition: Good Instructions (If sedation given, give patient instructions): Abdominal Pain (ED) Is patient prescribed a controlled substance at d/c from ED?: No Referrals: Tristin Phillips DO [Primary Care Provider] - 1-2 days Heather Sanders MD [STAFF PHYSICIAN] - 1-2 days
[2020-10-27] MEDS ORDERED: PANTOPRAZOLE 40 MG/10 ML VIAL IVP STA (22:47)
[2020-10-27 23:19] LABS: Basophils # (A) 0.1 k/uL (0-0.2); Basophils % (A) 1 %; Eosinophils # (A) 0.4 k/uL (0-0.7); Eosinophils % (A) 3 %; HCT 47.5 % (39.0-53.0); HGB 14.9 gm/dL (13.0-17.5); Lymphocytes # (A) 2.6 k/uL (1.0-4.8); Lymphocytes % (A) 19 %; MCH 31.8 pg (25.0-35.0); MCHC 31.4 g/dL (31.0-37.0); MCV 101.4 fL (80.0-100.0); Macrocytosis Slight; Mean Platelet Volume 8.6; Monocytes # (A) 0.8 k/uL (0-1.0); Monocytes % (A) 6 %; Neutrophils % (A) 71 %; Platelet Count 382 k/uL (150-450); RBC 4.69 m/uL (4.30-5.90); RDW 13.7 % (11.5-15.5); WBC 14.1 k/uL (3.8-10.6)
[2020-10-27 23:39] LABS: Albumin 4.7 g/dL (3.5-5.0); Calcium 10.4 mg/dL (8.4-10.2); Potassium 4.3 mmol/L (3.5-5.1); Total Bilirubin 0.3 mg/dL (0.2-1.3); Total Protein 7.3 g/dL (6.3-8.2)
[2020-10-28] MEDS ORDERED: SODIUM CHLORIDE 0.9% 1,000 ML IV ONE (00:18)
--- NOTE | 2020-10-28 01:20 | CT ---
EXAM: CT Abdomen and Pelvis Without Intravenous Contrast CLINICAL HISTORY: Abdominal pain. TECHNIQUE: Axial computed tomography images of the abdomen and pelvis without intravenous contrast. CTDI is 15.47 mGy and DLP is 880.7 mGy-cm. This CT exam was performed using one or more of the following dose reduction techniques: automated exposure control, adjustment of the mA and/or kV according to patient size, and/or use of iterative reconstruction technique. COMPARISON: No previous studies. FINDINGS: Artifacts: Motion artifact Lung bases: Minimal subsegmental atelectasis at the right lung base. Minimal probable subsegmental atelectasis lingular region. Heart: Heart is normal in size. ABDOMEN: Liver: Fatty liver. Gallbladder and bile ducts: Gallbladder is in a semi-contracted state. Pancreas: See below. Spleen: Spleen is normal in contour. Adrenals: The adrenal glands, the head, body, tail the pancreas, and the gallbladder are unremarkable. Kidneys and ureters: Nonspecific stranding about the perinephric spaces without hydronephrosis which requires clinical correlation. A 2.3 x 2.4 cm complex septated cyst midpole region of the right kidney. Stomach and bowel: Minimal ingested material in the stomach. Moderate quantity of stool throughout the colon. No bowel obstruction. No mucosal thickening. PELVIS: Appendix: The appendix is seen on coronal image 50 and is unremarkable. Bladder: Bladder is underdistended. No stones. Reproductive: Unremarkable as visualized. ABDOMEN and PELVIS: Intraperitoneal space: Unremarkable. No free air. No significant fluid collection. Bones/joints: No acute fracture. No dislocation. Soft tissues: Minimal subcutaneous inflammatory changes about the umbilicus possibly on the basis of superficial cellulitis. Clinical correlation is advised. Vasculature: Unremarkable. No abdominal aortic aneurysm. Lymph nodes: Unremarkable. No enlarged lymph nodes. Other findings: Minimal elevation of left hemidiaphragm. IMPRESSION: 1. Fatty liver. 2. Nonspecific stranding at the perinephric spaces. 3. Gallbladder is in a semi-contracted state but is otherwise unremarkable without gallstones. 4. Complex septated right renal cyst. Magnetic resonance imaging of the abdomen with gadolinium administration is advised to further assessment to 5. Minimal infiltrate changes about the periumbilical region best seen on axial image 98. Mild superficial cellulitis cannot be excluded and clinical correlation is advised. 6. No bowel obstruction.
[2020-10-28 03:15] VITALS: BP 171/100; PULSE 88; RESP 17
== END 2020-10-28 03:02 | disposition home or self-care (01) ==
LOC: EC 22:17
DX: R10.9 Unspecified abdominal pain (principal); E86.0 Dehydration; M54.9 Dorsalgia, unspecified; I11.0 Hypertensive heart disease with heart failure; I50.9 Heart failure, unspecified; K21.9 Gastro-esophageal reflux disease without esophagitis; F41.9 Anxiety disorder, unspecified; F32.9 Major depressive disorder, single episode, unspecified; F17.200 Nicotine dependence, unspecified, uncomplicated; Z79.1 Long term (current) use of non-steroidal anti-inflammatories (NSAID); Z79.02 Long term (current) use of antithrombotics/antiplatelets; Z79.899 Other long term (current) drug therapy; Z79.890 Hormone replacement therapy; Z79.84 Long term (current) use of oral hypoglycemic drugs; Z91.048 Other nonmedicinal substance allergy status; Z91.041 Radiographic dye allergy status; Z88.1 Allergy status to other antibiotic agents; Z88.2 Allergy status to sulfonamides; Z88.5 Allergy status to narcotic agent; Z85.828 Personal history of other malignant neoplasm of skin; Z86.73 Personal history of transient ischemic attack (TIA), and cerebral infarction without residual deficits; Z87.442 Personal history of urinary calculi
CPT/HCPCS: 36415 ×2; 93005; 86900; 86901; 80053; 83605 ×2; 83690; 84484; 85025; 85730; 86850; 82272; 74176; 99285; 96374; 96361; C9113

== ENCOUNTER 2020-11-20 13:03 | Observation (INO) | payer OTHER ==
[2020-11-20] MEDS ORDERED: ASPIRIN 81 MG PO STA (13:45)
[2020-11-20] MEDS ORDERED: NITROGLYCERIN OINT 1 INCH/GM PACKET TOPICAL STA (13:45)
[2020-11-20] MEDS ORDERED: hydrALAZINE HCL 20 MG/ML 1 ML VIAL IVP STA (13:46)
--- NOTE | 2020-11-20 14:08 | ED ---
General Adult HPI - General Chief complaint: Recheck/Abnormal Lab/Rx Stated complaint: chest pain Time Seen by Provider: 11/20/20 13:05 Source: patient, RN notes reviewed, old records reviewed Mode of arrival: wheelchair Limitations: no limitations - History of Present Illness Initial comments: This is a 50-year-old male who presents to the emergency department with past medical history significant for diabetes hypertension high cholesterol. Patient comes in today because he states he's been having high blood pressure for the last 2 months and occasionally low blood pressure over that period of time. Patient states he's also had diarrhea over the last 2 months. Patient states she's been having intermittent chest pain since chest pain shortness of breath since this morning. Patient states that chest discomfort lasted about 10 minutes it does not radiate anywhere. Patient denies any fever chills or cough. Patient denies any abdominal pain currently. Patient states just speaking to me he feels somewhat short of breath. Patient denies any headache patient denies numbness weakness. Patient states he does have a mild headache. - Related Data Home Medications Medication Instructions Recorded Confirmed Atorvastatin [Lipitor] 10 mg PO HS 04/16/14 10/16/20 Ergocalciferol [Vitamin D2 50,000 unit PO MO 07/09/14 10/16/20 (DRISDOL)] DULoxetine HCL [Cymbalta] 60 mg PO DAILY 12/31/14 10/16/20 Tamsulosin HCl [Flomax] 0.4 mg PO HS 12/31/14 10/16/20 Albuterol Inhaler (Mhu) [Ventolin 2 puff INHALATION RT-Q4H PRN 11/17/18 10/16/20 Hfa Inhaler] Albuterol Nebulized [Ventolin 2.5 mg INHALATION RT-BID PRN 11/17/18 10/16/20 Nebulized] Cetirizine HCl [Zyrtec] 10 mg PO DAILY 11/17/18 10/16/20 Levothyroxine Sodium [Synthroid] 88 mcg PO DAILY 11/17/18 10/16/20 Losartan Potassium 100 mg PO DAILY 11/17/18 10/16/20 Testosterone Cypionate 200 mg IM Q14D 11/17/18 10/16/20 [Depo-Testosterone] metFORMIN HCL 1,000 mg PO BID 11/17/18 10/16/20 traZODone HCL 100 mg PO HS 11/17/18 10/16/20 Metoprolol Succinate 200 mg PO DAILY 01/04/19 10/16/20 Ferrous Sulfate [Feosol] 325 mg PO DAILY 07/06/19 10/16/20 Cariprazine HCl [Vraylar] 1.5 mg PO DAILY 11/21/19 10/16/20 buPROPion HCL [Wellbutrin XL] 300 mg PO DAILY 01/03/20 10/16/20 Clopidogrel [Plavix] 75 mg PO DAILY 04/02/20 10/16/20 Fenofibrate [Lofibra] 54 mg PO HS 04/30/20 10/16/20 Meloxicam [Mobic] 15 mg PO DAILY 04/30/20 10/16/20 Spironolactone [Aldactone] 25 mg PO DAILY 04/30/20 10/16/20 Famotidine 20 mg PO BID 06/24/20 10/16/20 Ipratropium [place] [Atrovent Hfa] 2 puff INHALATION QID PRN 06/24/20 10/16/20 hydrALAZINE HCL 25 mg PO TID 06/24/20 10/16/20 hydroCHLOROthiazide 25 mg PO DAILY 06/24/20 10/16/20 Pantoprazole Sodium [Protonix] 40 mg PO BID 10/10/20 10/16/20 Previous Rx's Medication Instructions Recorded HYDROcodone/APAP 10-325MG [[place] 1 tab PO Q8H PRN 30 Days #90 tab 10/16/20 10-325] HYDROcodone/APAP 10-325MG [[place] 1 tab PO Q8HR PRN 30 Days #90 tab 10/16/20 10-325] Pregabalin [Lyrica] 100 mg PO TID 30 Days #90 cap 10/16/20 tiZANidine [Zanaflex] 4 mg PO TID PRN #90 tab 10/16/20 Allergies Allergy/AdvReac Type Severity Reaction Status Date / Time adhesive tape Allergy Rash/Hives Verified 11/20/20 13:07 cefaclor [From [facility]] Allergy Rash/Hives Verified 11/20/20 13:07 Iodinated Contrast Media Allergy Rash/Hives,throat Verified 11/20/20 13:07 [Iodinated Contrast Media - swelling IV Dye] propoxyphene napsylate Allergy Rash/Hives Verified 11/20/20 13:07 [From Darvocet-N 100] Sulfa (Sulfonamide Allergy Dyspnea Verified 11/20/20 13:07 Antibiotics) sulfamethoxazole Allergy Rapid Verified 11/20/20 13:07 [From Bactrim] Heart Rate trimethoprim [From Bactrim] Allergy Rapid Verified 11/20/20 13:07 Heart Rate Review of Systems ROS Statement: Those systems with pertinent positive or pertinent negative responses have been documented in the HPI. ROS Other: All systems not noted in ROS Statement are negative. Past Medical History Past Medical History: Cancer, Heart Failure, CVA/TIA, GERD/Reflux, Hypertension, Skin Disorder Additional Past Medical History / Comment(s): TMJ, sinus problems, eczema, kidney stones, diverticulitis, ulcers, abd. pain, back pain, implants, fractures, physical limitations, numbness and tingling both legs and both hands. Uses a cane at times. Removal of skin cancer. DX WITH HYPERREFLEXIA, "Swollen nerves in eyes." CVA NOV 2018, WBC count high seeing Dr. Luna. 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 PVD History of Any Multi-Drug Resistant Organisms: None Reported Past Surgical History: Adenoidectomy, Hernia Repair, Orthopedic Surgery, Tonsillectomy Additional Past Surgical History / Comment(s): Neck fusion, colonoscopy, left knee arthroscopy, bilateral carpal tunnel surgery, PAIN CLINIC INJECTIONS, BILAT CUBITAL SX ON ELBOWS, EGD. Past Anesthesia/Blood Transfusion Reactions: No Reported Reaction Past Psychological History: Anxiety, Depression Smoking Status: Former smoker Past Alcohol Use History: None Reported Past Drug Use History: None Reported - Past Family History Mother Family Medical History: Cancer Father Family Medical History: Cancer General Exam - General Exam Comments Initial Comments: GENERAL: Patient is well-developed and well-nourished. Patient is nontoxic and well- hydrated and is in mild distress. ENT: Neck is soft and supple. No significant lymphadenopathy is noted. Oropharynx is clear. Moist mucous membranes. Neck has full range of motion without eliciting any pain. EYES: The sclera were anicteric and conjunctiva were pink and moist. Extraocular movements were intact and pupils were equal round and reactive to light. Eyelids were unremarkable. PULMONARY: Unlabored respirations. Good breath sounds bilaterally. No audible rales rhonchi or wheezing was noted. CARDIOVASCULAR: There is a regular rate and rhythm without any murmurs gallops or rubs. ABDOMEN: Soft and nontender with normal bowel sounds. SKIN: Skin is clear with no lesions or rashes and otherwise unremarkable. NEUROLOGIC: Patient is alert and oriented x3. Cranial nerves II through XII are grossly intact. Motor and sensory are also intact. Normal speech, volume and content. Symmetrical smile. MUSCULOSKELETAL: Normal extremities with adequate strength and full range of motion. 2+ bilater ally LYMPHATICS: No significant lymphadenopathy is noted PSYCHIATRIC: Normal psychiatric evaluation. Limitations: no limitations Course Vital Signs 11/20/20 11/20/20 11/20/20 13:05 14:09 14:15 Temperature 97.8 F Pulse Rate 99 95 90 Respiratory 18 18 18 Rate Blood Pressure 164/104 156/101 138/93 O2 Sat by Pulse 98 96 96 Oximetry 11/20/20 14:30 Temperature Pulse Rate 92 Respiratory 18 Rate Blood Pressure 131/91 O2 Sat by Pulse 96 Oximetry Medical Decision Making - Medical Decision Making EKG shows normal sinus rhythm at 89 bpm PA interval is 140 QRS is 78 QT interval 344 QTC is 418. Patient's EKG shows no ST segment elevation or depression. Chest x-ray shows no acute abnormality. I spoke with Dr. crowder agreed to admit the patient admitted the patient I consult to cardiology. - Lab Data Result diagrams: 11/20/20 14:10 11/20/20 14:10 Lab Results 11/20/20 11/20/20 11/20/20 Range/Units 14:10 14:10 14:10 WBC 9.0 (3.8-10.6) k/uL RBC 4.40 (4.30-5.90) m/uL Hgb 14.6 (13.0-17.5) gm/dL Hct 43.4 (39.0-53.0) % MCV 98.6 (80.0-100.0) fL MCH 33.1 (25.0-35.0) pg MCHC 33.6 (31.0-37.0) g/dL RDW 12.3 (11.5-15.5) % Plt Count 273 (150-450) k/uL MPV 8.0 Neutrophils % 71 % Lymphocytes % 18 % Monocytes % 5 % Eosinophils % 4 % Basophils % 1 % Neutrophils # 6.4 (1.3-7.7) k/uL Lymphocytes # 1.6 (1.0-4.8) k/uL Monocytes # 0.4 (0-1.0) k/uL Eosinophils # 0.3 (0-0.7) k/uL Basophils # 0.1 (0-0.2) k/uL PT 10.8 (9.0-12.0) sec INR 1.0 (<1.2) APTT 24.3 (22.0-30.0) sec Sodium 138 (137-145) mmol/L Potassium 4.8 (3.5-5.1) mmol/L Chloride 103 (98-107) mmol/L Carbon Dioxide 28 (22-30) mmol/L Anion Gap 7 mmol/L BUN 15 (9-20) mg/dL Creatinine 1.48 H (0.66-1.25) mg/dL Est GFR (CKD-EPI)AfAm 63 (>60 ml/min/1.73 sqM) Est GFR (CKD-EPI)NonAf 55 (>60 ml/min/1.73 sqM) Glucose 132 H (74-99) mg/dL Calcium 9.5 (8.4-10.2) mg/dL Magnesium 1.4 L (1.6-2.3) mg/dL Total Bilirubin 0.3 (0.2-1.3) mg/dL AST 35 (17-59) U/L ALT 42 (4-49) U/L Alkaline Phosphatase 42 (38-126) U/L Troponin I (0.000-0.034) ng/mL NT-Pro-B Natriuret Pep pg/mL Total Protein 7.1 (6.3-8.2) g/dL Albumin 4.5 (3.5-5.0) g/dL 11/20/20 11/20/20 Range/Units 14:10 14:10 WBC (3.8-10.6) k/uL RBC (4.30-5.90) m/uL Hgb (13.0-17.5) gm/dL Hct (39.0-53.0) % MCV (80.0-100.0) fL MCH (25.0-35.0) pg MCHC (31.0-37.0) g/dL RDW (11.5-15.5) % Plt Count (150-450) k/uL MPV Neutrophils % % Lymphocytes % % Monocytes % % Eosinophils % % Basophils % % Neutrophils # (1.3-7.7) k/uL Lymphocytes # (1.0-4.8) k/uL Monocytes # (0-1.0) k/uL Eosinophils # (0-0.7) k/uL Basophils # (0-0.2) k/uL PT (9.0-12.0) sec INR (<1.2) APTT (22.0-30.0) sec Sodium (137-145) mmol/L Potassium (3.5-5.1) mmol/L Chloride (98-107) mmol/L Carbon Dioxide (22-30) mmol/L Anion Gap mmol/L BUN (9-20) mg/dL Creatinine (0.66-1.25) mg/dL Est GFR (CKD-EPI)AfAm (>60 ml/min/1.73 sqM) Est GFR (CKD-EPI)NonAf (>60 ml/min/1.73 sqM) Glucose (74-99) mg/dL Calcium (8.4-10.2) mg/dL Magnesium (1.6-2.3) mg/dL Total Bilirubin (0.2-1.3) mg/dL AST (17-59) U/L ALT (4-49) U/L Alkaline Phosphatase (38-126) U/L Troponin I <0.012 (0.000-0.034) ng/mL NT-Pro-B Natriuret Pep 140 pg/mL Total Protein (6.3-8.2) g/dL Albumin (3.5-5.0) g/dL Disposition Clinical Impression: Chest pain Disposition: ADMITTED IP TO THIS HOSP Referrals: Tristin Phillips DO [Primary Care Provider] - 1-2 days Time of Disposition: 15:31
--- NOTE | 2020-11-20 14:12 | XR ---
EXAMINATION TYPE: XR chest 2V DATE OF EXAM: 11/20/2020 COMPARISON: 06/01/2019 INDICATION: Chest pain TECHNIQUE: Frontal and lateral views of the chest are obtained. FINDINGS: The heart size is normal. The pulmonary vasculature is normal. The lungs are clear. Anterior spinal fusion is evident. IMPRESSION: 1. No acute pulmonary process.
[2020-11-20 14:26] LABS: Basophils # (A) 0.1 k/uL (0-0.2); Basophils % (A) 1 %; Eosinophils # (A) 0.3 k/uL (0-0.7); Eosinophils % (A) 4 %; HCT 43.4 % (39.0-53.0); HGB 14.6 gm/dL (13.0-17.5); Lymphocytes # (A) 1.6 k/uL (1.0-4.8); Lymphocytes % (A) 18 %; MCH 33.1 pg (25.0-35.0); MCHC 33.6 g/dL (31.0-37.0); MCV 98.6 fL (80.0-100.0); Monocytes # (A) 0.4 k/uL (0-1.0); Monocytes % (A) 5 %; Neutrophils # (A) 6.4 k/uL (1.3-7.7); Neutrophils % (A) 71 %; Platelet Count 273 k/uL (150-450); RDW 12.3 % (11.5-15.5)
[2020-11-20 14:40] LABS: Partial Thromboplastin Time 24.3 sec (22.0-30.0); Prothrombin Time 10.8 sec (9.0-12.0)
[2020-11-20 15:01] LABS: Albumin 4.5 g/dL (3.5-5.0); Calcium 9.5 mg/dL (8.4-10.2); Magnesium 1.4 mg/dL (1.6-2.3); Potassium 4.8 mmol/L (3.5-5.1); Total Bilirubin 0.3 mg/dL (0.2-1.3); Total Protein 7.1 g/dL (6.3-8.2)
[2020-11-20] MEDS ORDERED: NITROGLYCERIN SL TABS 0.4 MG TAB SUBLINGUAL PRN (15:32)
[2020-11-20] MEDS ORDERED: Magnesium Replacement Protocol 1 EACH MISC MISCELLANE PRN (15:55)
[2020-11-20] MEDS ORDERED: FAMOTIDINE 20 MG TAB PO PRN (15:56)
[2020-11-20] MEDS ORDERED: ONDANSETRON 4 MG/2 ML VIAL IVP PRN (15:59)
[2020-11-20] MEDS: METOPROLOL SUCCINATE (ER) 100 MG TAB.ER.24H PO SCH (16:52)
[2020-11-20] MEDS: glipiZIDE 5 MG TAB PO SCH (16:52)
[2020-11-20] MEDS: tiZANidine 4 MG TAB PO SCH ×2 (16:53→22:22)
[2020-11-20] MEDS: MAGNESIUM SULFATE-D5W PMX 1 GM in DEXTROSE/WATER 1 100ML.BAG IVPB SCH ×3 (16:53→18:42)
[2020-11-20] MEDS: NITROGLYCERIN OINT 1 INCH/GM PACKET TOPICAL SCH ×2 (16:53→23:23)
[2020-11-20] MEDS: buPROPion XL 300 MG TAB.ER.24H PO SCH (16:53)
[2020-11-20] MEDS: PREGABALIN 100 MG CAP PO SCH ×2 (16:53→22:22)
[2020-11-20 16:58] LABS: Glucose,Whole Blood 83 mg/dL (75-99)
[2020-11-20] MEDS: HYDROcodone/APAP 10-325MG 1 EACH TAB PO PRN (17:00)
[2020-11-20] MEDS: INSULIN ASPART (NovoLOG) 100 UNIT/ML VIAL SQ SCH ×2 (17:01→21:34)
[2020-11-20 21:33] LABS: Glucose,Whole Blood 100 mg/dL (75-99)
[2020-11-20] MEDS: ACETAMINOPHEN TAB 325 MG TAB PO PRN (22:22)
[2020-11-20] MEDS: TAMSULOSIN 0.4 MG CAP.ER.24H PO SCH (22:22)
[2020-11-20] MEDS: PANTOPRAZOLE 40 MG TABLET PO SCH (22:22)
[2020-11-20] MEDS: traZODone HCL 100 MG TAB PO SCH (22:22)
[2020-11-20] MEDS: DULoxetine HCL 60 MG CAPSULE.DR PO SCH (22:22)
[2020-11-20] MEDS: hydrALAZINE HCL 50 MG TAB PO SCH (22:22)
[2020-11-20] MEDS: FENOFIBRATE 54 MG TAB PO SCH (23:22)
[2020-11-20] MEDS: ALBUTEROL HFA INHALER INHALATION PRN (23:31)
[2020-11-21] MEDS: HYDROcodone/APAP 10-325MG 1 EACH TAB PO PRN ×3 (00:03→15:56)
[2020-11-21] MEDS: NITROGLYCERIN OINT 1 INCH/GM PACKET TOPICAL SCH (05:52)
[2020-11-21] MEDS: LEVOTHYROXINE 88 MCG TAB PO SCH (05:54)
[2020-11-21] MEDS: ACETAMINOPHEN TAB 325 MG TAB PO PRN (05:54)
[2020-11-21 07:27] LABS: Basophils # (A) 0.1 k/uL (0-0.2); Basophils % (A) 1 %; Eosinophils # (A) 0.2 k/uL (0-0.7); Eosinophils % (A) 2 %; HCT 42.3 % (39.0-53.0); HGB 13.5 gm/dL (13.0-17.5); Lymphocytes # (A) 2.2 k/uL (1.0-4.8); Lymphocytes % (A) 26 %; MCH 32.1 pg (25.0-35.0); MCHC 31.9 g/dL (31.0-37.0); MCV 100.7 fL (80.0-100.0); Mean Platelet Volume 8.1; Monocytes # (A) 0.5 k/uL (0-1.0); Monocytes % (A) 6 %; Neutrophils # (A) 5.2 k/uL (1.3-7.7); Neutrophils % (A) 63 %; Platelet Count 282 k/uL (150-450); RDW 12.8 % (11.5-15.5); WBC 8.3 k/uL (3.8-10.6)
[2020-11-21 07:32] LABS: Glucose,Whole Blood 106 mg/dL (75-99)
[2020-11-21] MEDS: INSULIN ASPART (NovoLOG) 100 UNIT/ML VIAL SQ SCH ×4 (07:43→22:28)
[2020-11-21] MEDS ORDERED: AMINOPHYLLINE 500 MG/20 ML VIAL IV PRN (08:46)
[2020-11-21] MEDS ORDERED: CAFFEINE CITRATE 60 MG/3 ML VIAL IV PRN (08:46)
[2020-11-21] MEDS ORDERED: REGADENOSON 0.4 MG/5 ML SYRINGE IV PRN (08:46)
[2020-11-21] MEDS ORDERED: CLOPIDOGREL 75 MG TAB PO SCH (09:00)
[2020-11-21] MEDS ORDERED: ASPIRIN 325 MG TAB PO SCH (09:00)
[2020-11-21] MEDS: PANTOPRAZOLE 40 MG TABLET PO SCH ×2 (09:19→22:26)
[2020-11-21] MEDS: hydrALAZINE HCL 50 MG TAB PO SCH ×2 (09:19→22:26)
[2020-11-21] MEDS: ASPIRIN 81 MG PO SCH (09:19)
--- NOTE | 2020-11-21 09:25 | P.HPIM ---
History of Present Illness This is a pleasant 50 years old male with past medical history of type 2 diabetes mellitus, hypertension, hyperlipidemia, chronic neck and back pain status post back surgery, lumbar spondylosis, heart failure, CVA/TIA, GERD, kidney stone, diabetic neuropathy chronic leukocytosis . He is a patient of Dr. Phillips who presents because of chest pain of one-day duration, nonradiating on the left side close to the left armpit about it/10 in severity felt like gas pain and sharp as per patient description, patient comes and goes associated with some palpitation and precipitated when he tries to consult upon movement. He denies cough and or dyspnea at rest although he complains from exertional dyspnea when walking to the bathroom however a little more back and forth a couple times no dyspnea or tachypnea was noted. He also complains from some headache and lightheadedness and dizziness and bilateral leg swelling. However he denies weakness or acute numbness, no blurred vision, no difficulty talking or swallowing. He has chronic numbness in his feet and hands, mostly related to diabetic neuropathy He is a smoker who quit about 2 weeks ago, he used to smoke 1 pack per day, no alcohol or illicit drugs. Echocardiogram last year on 02/17 showing ejection fraction of 6065% moderate LVH. Vitals are stable. Labs are unremarkable including CBC, INR, basic metabolic patient showing normal electrolytes, elevated creatinine 1.4, low magnesium of 1.4, liver enzymes elevated. Troponins 3 are negative with less than 0.012. EKG showing normal sinus rhythm at [address]-T changes and QTC of 418, chest x-ray: No acute process. On admission patient was started on aspirin Brain MRI from 01-17 showing new single focus of increased signal in the right parietal lobe white matter compared to old exam. This could be area of focal ischemia Review of Systems CONSTITUTIONAL: No fever, no malaise, no fatigue. HEENT: No recent visual problems or hearing problems. Denied any sore throat. CARDIOVASCULAR: No orthopnea, PND, no palpitations, no syncope. PULMONARY: No shortness of breath, no cough, no hemoptysis. GASTROINTESTINAL: No diarrhea, no nausea, no vomiting, no abdominal pain. Normoactive bowel sounds. NEUROLOGICAL: No headaches, no weakness, no numbness. HEMATOLOGICAL: Denies any bleeding or petechiae. GENITOURINARY: Denies any burning micturition, frequency, or urgency. MUSCULOSKELETAL/RHEUMATOLOGICAL: Denies any joint pain, swelling, or any muscle pain. ENDOCRINE: Denies any polyuria or polydipsia. Past Medical History Past Medical History: Cancer, Heart Failure, CVA/TIA, GERD/Reflux, Hypertension, Skin Disorder Additional Past Medical History / Comment(s): TMJ, sinus problems, eczema, kidney stones, diverticulitis, ulcers, abd. pain, back pain, implants, fractures, physical limitations, numbness and tingling both legs and both hands. Uses a cane at times. Removal of skin cancer. DX WITH HYPERREFLEXIA, "Swollen nerves in eyes." CVA NOV 2018, WBC count high seeing Dr. Luna. 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 PVD History of Any Multi-Drug Resistant Organisms: None Reported Past Surgical History: Adenoidectomy, Hernia Repair, Orthopedic Surgery, Tonsillectomy Additional Past Surgical History / Comment(s): Neck fusion, colonoscopy, left knee arthroscopy, bilateral carpal tunnel surgery, PAIN CLINIC INJECTIONS, BILAT CUBITAL SX ON ELBOWS, EGD. Past Anesthesia/Blood Transfusion Reactions: No Reported Reaction Past Psychological History: Anxiety, Depression Additional Psychological History / Comment(s): . Has custody of his 3 daughters. Positive tobacco use. No notation of significant alcohol or recreational drug use. No experience. Has worked as a oseguera. No international travel. No animal exposures Smoking Status: Former smoker Past Alcohol Use History: None Reported Additional Past Alcohol Use History / Comment(s): SMOKES 1PPD SINCE AGE 16. Past Drug Use History: None Reported - Past Family History Mother Family Medical History: Cancer Father Family Medical History: Cancer Medications and Allergies Home Medications Medication Instructions Recorded Confirmed Type Atorvastatin [Lipitor] 10 mg PO HS 04/16/14 11/20/20 History Ergocalciferol [Vitamin D2 50,000 unit PO MO 07/09/14 11/20/20 History (DRISDOL)] DULoxetine HCL [Cymbalta] 60 mg PO HS 12/31/14 11/20/20 History Tamsulosin HCl [Flomax] 0.4 mg PO HS 12/31/14 11/20/20 History Cetirizine HCl [Zyrtec] 10 mg PO DAILY 11/17/18 11/20/20 History Levothyroxine Sodium [Synthroid] 88 mcg PO DAILY 11/17/18 11/20/20 History Losartan Potassium 50 mg PO HS 11/17/18 11/20/20 History Testosterone Cypionate 200 mg IM Q14D 11/17/18 11/20/20 History [Depo-Testosterone] metFORMIN HCL 1,000 mg PO BID 11/17/18 11/20/20 History traZODone HCL 100 mg PO HS 11/17/18 11/20/20 History Metoprolol Succinate 200 mg PO DAILY 01/04/19 11/20/20 History Cariprazine HCl [Vraylar] 1.5 mg PO DAILY 11/21/19 11/20/20 History buPROPion HCL [Wellbutrin XL] 300 mg PO DAILY 01/03/20 11/20/20 History Clopidogrel [Plavix] 75 mg PO DAILY 04/02/20 11/20/20 History Fenofibrate [Lofibra] 54 mg PO HS 04/30/20 11/20/20 History Meloxicam [Mobic] 15 mg PO DAILY 04/30/20 11/20/20 History Spironolactone [Aldactone] 25 mg PO DAILY 04/30/20 11/20/20 History Famotidine 20 mg PO DAILY PRN 06/24/20 11/20/20 History hydrALAZINE HCL 50 mg PO BID 06/24/20 11/20/20 History Pantoprazole Sodium [Protonix] 40 mg PO BID 10/10/20 11/20/20 History Pregabalin [Lyrica] 100 mg PO TID 30 Days #90 cap 10/16/20 11/20/20 Rx Albuterol Inhaler [Ventolin Hfa 2 puff INHALATION RT-QID PRN 11/20/20 11/20/20 History Inhaler] Furosemide [Lasix] 20 mg PO DAILY 11/20/20 11/20/20 History HYDROcodone/APAP 10-325MG [[place] 1 tab PO TID 11/20/20 11/20/20 History 10-325] glipiZIDE [Glucotrol] 5 mg PO PC-SUPPER 11/20/20 11/20/20 History tiZANidine [Zanaflex] 4 mg PO TID 11/20/20 11/20/20 History Allergies Allergy/AdvReac Type Severity Reaction Status Date / Time adhesive tape Allergy Rash/Hives Verified 11/20/20 15:37 cefaclor [From Ceclor] Allergy Rash/Hives Verified 11/20/20 15:37 Iodinated Contrast Media Allergy Rash/Hives,throat Verified 11/20/20 15:37 [Iodinated Contrast Media - swelling IV Dye] propoxyphene napsylate Allergy Rash/Hives Verified 11/20/20 15:37 [From Darvocet-N 100] Sulfa (Sulfonamide Allergy Dyspnea Verified 11/20/20 15:37 Antibiotics) sulfamethoxazole Allergy Rapid Verified 11/20/20 15:37 [From Bactrim] Heart Rate trimethoprim [From Bactrim] Allergy Rapid Verified 11/20/20 15:37 Heart Rate Physical Exam Vitals: Vital Signs Temp Pulse Pulse Resp BP BP Pulse Ox 11/21/20 02:50 97.7 F 73 15 105/76 99 11/20/20 22:19 75 135/89 11/20/20 20:01 97.5 F L 72 16 114/72 97 11/20/20 16:00 97.9 F 90 18 135/92 96 11/20/20 14:30 92 18 131/91 96 11/20/20 14:15 90 18 138/93 96 11/20/20 14:09 95 18 156/101 96 11/20/20 13:05 97.8 F 99 18 164/104 98 Intake and Output 11/20/20 11/21/20 11/21/20 22:59 06:59 14:59 Other: Voiding Method Toilet # Voids 1 3 Weight 95.254 kg GENERAL: The patient is alert and oriented x3, not in any acute distress. Well developed, well nourished. HEENT: Pupils are round and equally reacting to light. EOMI. No scleral icterus. No conjunctival pallor. Normocephalic, atraumatic. No pharyngeal erythema. No thyromegaly. CARDIOVASCULAR: S1 and S2 present. No murmurs, rubs, or gallops. PULMONARY: Chest is clear to auscultation, no wheezing or crackles. ABDOMEN: Soft, nontender, nondistended, normoactive bowel sounds. No palpable organomegaly. MUSCULOSKELETAL: No joint swelling or deformity. -EXTREMITIES: No cyanosis, clubbing, . Bilateral pitting leg edema. NEUROLOGICAL: Gross neurological examination did not reveal any focal deficits. SKIN: No rashes. No petechiae Gait: Normal Results CBC & Chem 7: 11/21/20 06:20 11/20/20 14:10 Labs: Abnormal Lab Results - Last 24 Hours (Table) 11/20/20 11/20/20 Range/Units 14:10 21:32 Creatinine 1.48 H (0.66-1.25) mg/dL Glucose 132 H (74-99) mg/dL POC Glucose (mg/dL) 100 H (75-99) mg/dL Magnesium 1.4 L (1.6-2.3) mg/dL Thrombosis Risk Factor Assmnt - Choose All That Apply Each Factor Represents 1 point: Age 41-60 years Thrombosis Risk Factor Assessment Total Risk Factor Score: 1 Thrombosis Risk Factor Assessment Level: Low Risk Assessment and Plan Assessment: Chest pain, rule out cardiac causes Acute kidney injury hypomagnesemia Bilateral leg swelling Dizziness and lightheadedness Type 2 diabetes mellitus Hypertension Hyperlipidemia Chronic neck and back pain with history of lumbar spondylolisthesis and history of pain ejection Chronic heart failure History of CVA/TIA GERD History of kidney stone Diabetic neuropathy Plan: This is a pleasant 50 years old male who presents with chest pain. TROPONIN, cardiology consult. Continue with aspirin. Check ultrasound of the lower extremity. Also we will ask for neurologist consult to check on dizziness although intracranial lesion is doubtful, however he has abnormal MRI before Labs and medication were reviewed.. Continue same treatment. Continue with symptomatic treatment. Resume home medication. Monitor lytes and vitals. DVT and GI prophylaxis. Further recommendations depends on the clinical course of the patient DVT prophylaxis: Subcutaneous heparin GI Prophylaxis: Ppi PT/OT: Pending Prognosis is guarded
--- NOTE | 2020-11-21 10:16 | US ---
EXAMINATION TYPE: US venous doppler duplex LE DATE OF EXAM: 11/21/2020 9:58 AM COMPARISON: NONE CLINICAL HISTORY: Rule out DVT. edema bilateral feet, patient on Plavix, history of stroke SIDE PERFORMED: bilateral TECHNIQUE: The lower extremity deep venous system is examined utilizing real time linear array sonog aspen with graded compression, doppler sonography and color-flow sonography. VESSELS IMAGED: Common Femoral Vein Deep Femoral Vein Greater Saphenous Vein * Femoral Vein Popliteal Vein Small Saphenous Vein * Proximal Calf Veins (* superficial vessels) Right Leg: no evidence of DVT Left Leg: no evidence of DVT IMPRESSION: 1. Bilateral lower extremity ultrasound negative for deep venous thrombosis
--- NOTE | 2020-11-21 10:32 | P.CRDCN ---
History of Present Illness History of present illness: HISTORY OF PRESENTING ILLNESS This is a pleasant 50-year-old male past medical history significant for hypertension, CVA 2 years ago, chronic pain syndrome, diabetes mellitus, gastroesophageal reflux disease, hypothyroidism, depression and chronic nicotine dependence. The patient states he quit smoking 2 weeks ago. He follows in the office with Dr. Harper. We have been asked to see in consultation for chest pain. He states for the previous one month he has been struggling with his blood pressure. 1 minute his blood pressure is over 200 systolic and the next it is low in the 90s. He has been following closely with Dr. Harper in the recently made some adjustments by decreasing his losartan to 50 mg at bedtime. Yesterday he woke up and he felt extremely lightheaded and weak. He checked his blood pressure and he states it was 40 systolic. He quickly ate some salty foods and his blood pressure 70s systolic. When he woke up the next morning he got up to walk to the bathroom and he felt his heart racing with some associated tightness in the left precordial region and shortness of breath. He also is complaining of a mild headache. DIAGNOSTICS EKG reveals sinus mechanism with left axis deviation no acute ST or T wave abnormalities noted. Telemetry tracings indicate persistent sinus mechanism with no acute arrhythmias. Chest xray negative for an acute cardiopulmonary process. Bilateral lower extremity doppler negative for DVT. Laboratory reviewed, WBC 8.3, hemoglobin 13.5, platelets 282, cardiac enzymes negative 3, sodium 138, potassium 4.8, creatinine 1.48 and proBNP 140. Current cardiac medications include atorvastatin 10 mg at bedtime, Plavix 75 mg daily, Lasix 20 mg daily, fenofibrate 54 mg at bedtime, losartan 50 mg at bedtime, Toprol 200 mg daily, Aldactone 25 mg daily and hydralazine 50 mg twice a day. Most recent stress test performed in the office December 2019 was negative for reversible cardiac ischemia. Echocardiogram obtained at that time revealed preserved LV systolic function with ejection fraction 55%. REVIEW OF SYSTEMS At the time of my exam: CONSTITUTIONAL: Denies fever or chills. CARDIOVASCULAR: Denies chest pain, shortness of breath, orthopnea, PND or palpitations. RESPIRATORY: Denies cough. GASTROINTESTINAL: Denies abdominal pain, diarrhea, constipation, nausea or vomiting. MUSCULOSKELETAL: Denies myalgias. NEUROLOGIC: Denies numbness, tingling, headacbe or weakness. ENDOCRINE: Denies fatigue, weight change, polydipsia or polyurina. GENITOURINARY: Denies burning, hematuria or urgency with micturation. HEMATOLOGIC: Denies history of anemia or bleeding. PHYSICAL EXAMINATION Blood pressure 154/92 heart rate 74 afebrile and maintaining oxygen saturation on room air. CONSTITUTIONAL: No apparent distress. Obese. HEENT: Head is normocephalic. Pupils are equal, round. Sclerae anicteric. Mucous membranes of the mouth are moist. No JVD. No carotid bruit. CHEST EXAMINATION: Lungs are clear to auscultation. No chest wall tenderness is noted on palpation or with deep breathing. HEART EXAMINATION: Regular rate and rhythm. S1, S2 heard. No murmurs, gallops or rub. ABDOMEN: Soft, nontender. Positive bowel sounds. EXTREMITIES: 2+ peripheral pulses, bilateral lower extremity edema nonpitting and no calf tenderness. NEUROLOGIC EXAMINATION: Patient is awake, alert and oriented x3. ASSESSMENT Chest pain and shortness of breath History of hypertension with episodes of hypotension Headache Acute kidney injury Diabetes mellitus Dyslipidemia GERD Chronic nicotine dependence PLAN An acute coronary event has been ruled out. Obtain 2D echocardiogram and doppler study to assess cardiac structure and function. Perform Lexiscan stress test to assess for reversible cardiac ischemia. Clinically he is euvolemic, lower extremity edema is not cardiac related. Hold losartan secondary to acute kidney injury. Consider autonomic dysfunction secondary to neuropathy and diabetes as cause for fluctuating blood pressures. Thank you kindly for this consultation. Nurse Practitioner note has been reviewed, I agree with a documented findings and plan of care. Patient was seen and examined. Past Medical History Past Medical History: Cancer, Heart Failure, CVA/TIA, GERD/Reflux, Hypertension, Skin Disorder Additional Past Medical History / Comment(s): TMJ, sinus problems, eczema, kidney stones, diverticulitis, ulcers, abd. pain, back pain, implants, fractures, physical limitations, numbness and tingling both legs and both hands. Uses a cane at times. Removal of skin cancer. DX WITH HYPERREFLEXIA, "Swollen nerves in eyes." CVA NOV 2018, WBC count high seeing Dr. Luna. 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 PVD History of Any Multi-Drug Resistant Organisms: None Reported Past Surgical History: Adenoidectomy, Hernia Repair, Orthopedic Surgery, Tonsillectomy Additional Past Surgical History / Comment(s): Neck fusion, colonoscopy, left knee arthroscopy, bilateral carpal tunnel surgery, PAIN CLINIC INJECTIONS, BILAT CUBITAL SX ON ELBOWS, EGD. Past Anesthesia/Blood Transfusion Reactions: No Reported Reaction Past Psychological History: Anxiety, Depression Additional Psychological History / Comment(s): . Has custody of his 3 daughters. Positive tobacco use. No notation of significant alcohol or recreational drug use. No experience. Has worked as a oseguera. No international travel. No animal exposures Smoking Status: Former smoker Past Alcohol Use History: None Reported Additional Past Alcohol Use History / Comment(s): SMOKES 1PPD SINCE AGE 16. Past Drug Use History: None Reported - Past Family History Mother Family Medical History: Cancer Father Family Medical History: Cancer Medications and Allergies Home Medications Medication Instructions Recorded Confirmed Type Atorvastatin [Lipitor] 10 mg PO HS 04/16/14 11/20/20 History Ergocalciferol [Vitamin D2 50,000 unit PO MO 07/09/14 11/20/20 History (DRISDOL)] DULoxetine HCL [Cymbalta] 60 mg PO HS 12/31/14 11/20/20 History Tamsulosin HCl [Flomax] 0.4 mg PO HS 12/31/14 11/20/20 History Cetirizine HCl [Zyrtec] 10 mg PO DAILY 11/17/18 11/20/20 History Levothyroxine Sodium [Synthroid] 88 mcg PO DAILY 11/17/18 11/20/20 History Losartan Potassium 50 mg PO HS 11/17/18 11/20/20 History Testosterone Cypionate 200 mg IM Q14D 11/17/18 11/20/20 History [Depo-Testosterone] metFORMIN HCL 1,000 mg PO BID 11/17/18 11/20/20 History traZODone HCL 100 mg PO HS 11/17/18 11/20/20 History Metoprolol Succinate 200 mg PO DAILY 01/04/19 11/20/20 History Cariprazine HCl [Vraylar] 1.5 mg PO DAILY 11/21/19 11/20/20 History buPROPion HCL [Wellbutrin XL] 300 mg PO DAILY 01/03/20 11/20/20 History Clopidogrel [Plavix] 75 mg PO DAILY 04/02/20 11/20/20 History Fenofibrate [Lofibra] 54 mg PO HS 04/30/20 11/20/20 History Meloxicam [Mobic] 15 mg PO DAILY 04/30/20 11/20/20 History Spironolactone [Aldactone] 25 mg PO DAILY 04/30/20 11/20/20 History Famotidine 20 mg PO DAILY PRN 06/24/20 11/20/20 History hydrALAZINE HCL 50 mg PO BID 06/24/20 11/20/20 History Pantoprazole Sodium [Protonix] 40 mg PO BID 10/10/20 11/20/20 History Pregabalin [Lyrica] 100 mg PO TID 30 Days #90 cap 10/16/20 11/20/20 Rx Albuterol Inhaler [Ventolin Hfa 2 puff INHALATION RT-QID PRN 11/20/20 11/20/20 History Inhaler] Furosemide [Lasix] 20 mg PO DAILY 11/20/20 11/20/20 History HYDROcodone/APAP 10-325MG [[place] 1 tab PO TID 11/20/20 11/20/20 History 10-325] glipiZIDE [Glucotrol] 5 mg PO PC-SUPPER 11/20/20 11/20/20 History tiZANidine [Zanaflex] 4 mg PO TID 11/20/20 11/20/20 History Allergies Allergy/AdvReac Type Severity Reaction Status Date / Time adhesive tape Allergy Rash/Hives Verified 11/20/20 15:37 cefaclor [From Ceclor] Allergy Rash/Hives Verified 11/20/20 15:37 Iodinated Contrast Media Allergy Rash/Hives,throat Verified 11/20/20 15:37 [Iodinated Contrast Media - swelling IV Dye] propoxyphene napsylate Allergy Rash/Hives Verified 11/20/20 15:37 [From Darvocet-N 100] Sulfa (Sulfonamide Allergy Dyspnea Verified 11/20/20 15:37 Antibiotics) sulfamethoxazole Allergy Rapid Verified 11/20/20 15:37 [From Bactrim] Heart Rate trimethoprim [From Bactrim] Allergy Rapid Verified 11/20/20 15:37 Heart Rate Physical Exam Vitals: Vital Signs Temp Pulse Pulse Resp BP BP Pulse Ox 11/21/20 07:40 97.7 F 74 16 154/92 98 11/21/20 07:12 98 11/21/20 02:50 97.7 F 73 15 105/76 99 11/20/20 22:19 75 135/89 11/20/20 20:01 97.5 F L 72 16 114/72 97 11/20/20 16:00 97.9 F 90 18 135/92 96 11/20/20 14:30 92 18 131/91 96 11/20/20 14:15 90 18 138/93 96 11/20/20 14:09 95 18 156/101 96 11/20/20 13:05 97.8 F 99 18 164/104 98 Intake and Output 11/20/20 11/21/20 11/21/20 22:59 06:59 14:59 Other: Voiding Method Toilet # Voids 1 3 Weight 95.254 kg Results 11/21/20 06:20 11/20/20 14:10 Cardiac Enzymes 11/20/20 11/20/20 11/20/20 Range/Units 14:10 14:10 17:14 AST 35 (17-59) U/L Troponin I <0.012 <0.012 (0.000-0.034) ng/mL 11/20/20 Range/Units 19:55 AST (17-59) U/L Troponin I <0.012 (0.000-0.034) ng/mL Coagulation 11/20/20 Range/Units 14:10 PT 10.8 (9.0-12.0) sec APTT 24.3 (22.0-30.0) sec CBC 11/20/20 11/21/20 Range/Units 14:10 06:20 WBC 9.0 8.3 (3.8-10.6) k/uL RBC 4.40 4.20 L (4.30-5.90) m/uL Hgb 14.6 13.5 (13.0-17.5) gm/dL Hct 43.4 42.3 (39.0-53.0) % Plt Count 273 282 (150-450) k/uL Comprehensive Metabolic Panel 11/20/20 Range/Units 14:10 Sodium 138 (137-145) mmol/L Potassium 4.8 (3.5-5.1) mmol/L Chloride 103 (98-107) mmol/L Carbon Dioxide 28 (22-30) mmol/L BUN 15 (9-20) mg/dL Creatinine 1.48 H (0.66-1.25) mg/dL Glucose 132 H (74-99) mg/dL Calcium 9.5 (8.4-10.2) mg/dL AST 35 (17-59) U/L ALT 42 (4-49) U/L Alkaline Phosphatase 42 (38-126) U/L Total Protein 7.1 (6.3-8.2) g/dL Albumin 4.5 (3.5-5.0) g/dL Current Medications Generic Name Dose Route Start Last Admin Trade Name Freq PRN Reason Stop Dose Admin Acetaminophen 650 mg 11/20/20 21:52 11/21/20 05:54 Acetaminophen Tab 325 Mg Tab PO 650 mg Q4HR PRN Administration Fever and/ or Pain Hydrocodone Bitart/Acetaminophen 1 each 11/20/20 15:56 11/21/20 08:22 Hydrocodone/Apap 10-325mg 1 Each Tab PO 1 each TID PRN Administration Pain Albuterol Sulfate 2 puff 11/20/20 15:56 11/20/20 23:31 Albuterol Hfa Inhaler INHALATION 2 puff RT-QID PRN Administration Shortness Of Breath Aminophylline 100 mg 11/21/20 08:46 Aminophylline 500 Mg/20 Ml Vial IV 11/21/20 12:46 ONCE PRN Patient Response Aspirin 81 mg 11/21/20 09:00 11/21/20 09:19 Aspirin 81 Mg PO 81 mg DAILY LAN Administration Bupropion HCl 300 mg 11/20/20 16:30 11/20/20 16:53 Bupropion Xl 300 Mg Tab.Er.24h PO 300 mg DAILY LAN Administration Caffeine Citrate 60 mg 11/21/20 08:46 Caffeine Citrate 60 Mg/3 Ml Vial IV 11/21/20 12:46 ONCE PRN Patient Response Duloxetine HCl 60 mg 11/20/20 21:00 11/20/20 22:22 Duloxetine Hcl 60 Mg Capsule.Dr PO 60 mg HS LAN Administration Ergocalciferol 50,000 mcg 11/25/20 09:00 Ergocalciferol 1,250 Mcg (50,000 Iu) Capsule PO MO LAN Famotidine 20 mg 11/20/20 15:56 Famotidine 20 Mg Tab PO DAILY PRN Heartburn Fenofibrate 54 mg 11/20/20 21:00 11/20/20 23:22 Fenofibrate 54 Mg Tab PO 54 mg HS LAN Administration Glipizide 5 mg 11/20/20 18:30 11/20/20 16:52 Glipizide 5 Mg Tab PO 5 mg PC-SUPPER LAN Administration Heparin Sodium (Porcine) 5,000 unit 11/21/20 21:00 Heparin Sodium,Porcine 5,000 Unit/Ml 1 Ml Vial SQ Q12HR LAN Hydralazine HCl 50 mg 11/20/20 21:00 11/21/20 09:19 Hydralazine Hcl 50 Mg Tab PO 50 mg BID LAN Administration Insulin Aspart 0 unit 11/20/20 17:30 11/21/20 07:43 Insulin Aspart (Novolog) 100 Unit/Ml Vial SQ Not Given ACHS [facility] Protocol Levothyroxine Sodium 88 mcg 11/21/20 06:30 11/21/20 05:54 Levothyroxine 88 Mcg Tab PO 88 mcg DAILY@0630 [facility] Administration Metoprolol Succinate 200 mg 11/20/20 16:00 11/20/20 16:52 Metoprolol Succinate (Er) 100 Mg Tab.Er.24h PO 200 mg DAILY LAN Administration Miscellaneous Information 1 each 11/20/20 15:55 Magnesium Replacement Protocol 1 Each Misc MISCELLANE DAILY PRN Per Protocol Protocol Nitroglycerin 0.4 mg 11/20/20 15:32 Nitroglycerin Sl Tabs 0.4 Mg Tab SUBLINGUAL Q5M PRN Chest Pain Ondansetron HCl 4 mg 11/20/20 15:59 Ondansetron 4 Mg/2 Ml Vial IVP Q6HR PRN Nausea And Vomiting Pantoprazole Sodium 40 mg 11/20/20 21:00 11/21/20 09:19 Pantoprazole 40 Mg Tablet PO 40 mg BID LAN Administration Pregabalin 100 mg 11/20/20 16:00 11/20/20 22:22 Pregabalin 100 Mg Cap PO 100 mg TID LAN Administration Regadenoson 0.4 mg 11/21/20 08:46 Regadenoson 0.4 Mg/5 Ml Syringe IV 11/21/20 12:46 ONCE PRN Per Protocol Tamsulosin HCl 0.4 mg 11/20/20 21:00 11/20/20 22:22 Tamsulosin 0.4 Mg Cap.Er.24h PO 0.4 mg HS LAN Administration Tizanidine HCl 4 mg 11/20/20 16:00 11/20/20 22:22 Tizanidine 4 Mg Tab PO 4 mg TID LAN Administration Trazodone HCl 100 mg 11/20/20 21:00 11/20/20 22:22 Trazodone Hcl 100 Mg Tab PO 100 mg HS LAN Administration Intake and Output 11/20/20 11/21/20 11/21/20 22:59 06:59 14:59 Other: Voiding Method Toilet # Voids 1 3 Weight 95.254 kg 11/21/20 06:20 11/20/20 14:10
[2020-11-21 12:01] LABS: Glucose,Whole Blood 96 mg/dL (75-99)
[2020-11-21] MEDS: PREGABALIN 100 MG CAP PO SCH ×3 (12:29→22:25)
[2020-11-21] MEDS: tiZANidine 4 MG TAB PO SCH ×3 (12:29→22:27)
[2020-11-21] MEDS: METOPROLOL SUCCINATE (ER) 100 MG TAB.ER.24H PO SCH (12:29)
[2020-11-21] MEDS: buPROPion XL 300 MG TAB.ER.24H PO SCH (12:29)
--- NOTE | 2020-11-21 12:34 | ECHOF ---
Referral Reason:exertional sob MEASUREMENTS -------- HEIGHT: 165.1 cm WEIGHT: 95.3 kg BP: IVSd: 1.1 cm (0.6 - 1.1) LVIDd: 4.0 cm (3.9 - 5.3) LVPWd: 1.2 cm (0.6 - 1.1) IVSs: 1.4 cm LVIDs: 3.2 cm LVPWs: 1.1 cm LAESV Index (A-L): 19.61 ml/m MV EXCURSION: 26.182 mm (> 18.000) MV EF SLOPE: 90 mm/s (70 - 150) EPSS: 1.7 cm MV E Odilon: 0.64 m/s MV DecT: 211 ms MV A Odilon: 0.91 m/s MV E/A Ratio: 0.70 RAP: 5.00 mmHg RVSP: 19.55 mmHg FINDINGS -------- Sinus rhythm. This was a technically adequate study. LV size, wall thickness and systolic function are normal, with an EF greater than 55%. The left derek tricular size is normal. The right ventricle is normal in size. Normal LA size by volume 22+/-6 ml/m2. The right atrial size is normal. There is mild aortic valve sclerosis. There is mild aortic regurgitation. Mild mitral annular calcification present. Mild mitral regurgitation is present. The tricuspid valve appears structurally normal. Mild tricuspid regurgitation present. Right vent ricular systolic pressure is normal at < 35 mmHg. There is no pulmonic regurgitation present. The aortic root size is normal. There is no pericardial effusion. CONCLUSIONS -------- 1. LV size, wall thickness and systolic function are normal, with an EF greater than 55%. 2. Normal LA size by volume 22+/-6 ml/m2. 3. There is mild aortic valve sclerosis. 4. There is mild aortic regurgitation. 5. Mild mitral annular calcification present. 6. Mild mitral regurgitation is present. 7. Mild tricuspid regurgitation present. 8. There is no pericardial effusion. [employer] OPERATOR: Ernestine Meza RDCS
--- NOTE | 2020-11-21 12:54 | NM ---
EXAMINATION TYPE: NM stress lexiscan cardiolite DATE OF EXAM: 11/21/2020 COMPARISON: NONE HISTORY: Chest pain short of breath TECHNIQUE: After the intravenous administration of 9.5 mCi Tc 99m Sestamibi - Cardiolite resting SPE CT images acquired 45 minutes post injection. The patient received 0.4mg Lexiscan, 25.0 mCi Tc 99m Sestamibi - Stress images obtained [address] injection FINDINGS: On stress images there is some island diminished radiotracer accumulation along the inferior lateral wall bowel within the midportion. This has a more normal radiotracer distribution on the resting imag es. Some mild stress-induced ischemic change could be considered. Polar maps do not support of this f inding. A tiny reversible defect along the mid lateral wall is on the Polar maps and is more likely a rtifact. The ejection fraction of 57% is normal. Gated wall motion is normal. IMPRESSION: 1. Mild posterior lateral stress-induced ischemic change may be present. Finding however is not suppo rted by polar maps or wall motion abnormality. Correlate for EKG changes. 2. Stress myocardial study otherwise appears unremarkable.
--- NOTE | 2020-11-21 13:33 | EST ---
EXERCISE STRESS AGE: 50 SEX: Male HT: 65" WT: 210 pounds PROTOCOL: Lexiscan Cardiolite STAGE: DURATION OF EXERCISE: HEART RATE REST: 77 BLOOD PRESSURE REST: 164/101 MAXIMUM HEART RATE ACHIEVED: 102 MAXIMUM BLOOD PRESSURE: 186/108 85% MPHR: 145 100% MPHR: 170 METS: INDICATIONS: Chest pain. CLINICAL INFORMATION: Baseline rhythm is sinus mechanism, rate of 77, normal axis and intervals, poor R progression. Baseline blood pressure 164/101 mmHg. Patient received injection of Lexiscan. Electrocardiograph monitoring revealed no evidence of diagnostic ischemic ST deviation. Cardiolite was injected per protocol. CONCLUSION: 1. Nondiagnostic electrocardiograph stress testing. 2. Nuclear images will be reported separately. MMODL / IJN: [id number] /
--- NOTE | 2020-11-21 14:52 | P.PN ---
Progress Note - Text Discussed results of stress test with the patient. He is chest pain free and having no shortness of breath. He is stable to be discharged home and follow up in the office with Dr. Harper next week.
[2020-11-21] MEDS: ALBUTEROL HFA INHALER INHALATION PRN ×2 (15:24→20:37)
[2020-11-21 15:26] LABS: African American GFR (CKD) 73 (>60 ml/min/1.73 sqM); Anion Gap 9 mmol/L; Blood Urea Nitrogen 15 mg/dL (9-20); Calcium 9.5 mg/dL (8.4-10.2); Carbon Dioxide 20 mmol/L (22-30); Chloride 106 mmol/L (98-107); Glucose 213 mg/dL (74-99); Non-African American GFR(CKD) 63 (>60 ml/min/1.73 sqM); Potassium 5.8 mmol/L (3.5-5.1); Sodium 135 mmol/L (137-145)
[2020-11-21] MEDS ORDERED: PROCHLORPERAZINE INJ 10 MG/2 ML VIAL IVP STA (16:34)
[2020-11-21 16:35] LABS: Anion Gap 8.4 mmol/L (4.00-12.00); BUN/Creat Ratio 11.33 Ratio (12.00-20.00); Calcium 9.5 mg/dL (8.7-10.3); Carbon Dioxide 25.6 mmol/L (21.6-31.8); Chol/HDL Ratio 3.67; LDL Cholesterol,Calculated 39.4 mg/dL (0.0-131.0); Non-African American GFR(CKD) 53.5 (60.0-200.0); Potassium 4.5 mmol/L (3.5-5.5); VLDL Calculation 32.6 mg/dL (5.00-40.00)
[2020-11-21] MEDS ORDERED: diphenhydrAMINE 50 MG/ML 1 ML VIAL IVP STA (16:35)
--- NOTE | 2020-11-21 16:54 | P.CNNES ---
History of Present Illness Consult date: 11/21/20 Requesting physician: Pasquale E Sheet Reason for Consult: dizziness History of Present Illness: This is a 50-year-old gentleman medical history of diabetes (for 10 year), hypertension, hypercholesterolemia that presented emergency department on 11/20/2020 for an intermittent chest pain and shortness of breath for the last 1 day. Neurology is consulted for dizziness. He stated that the last 1 year he's been having bilateral lower extremity edema and has been worse for the last 1 month. He stated that it does not improve standing or lying position. He also stated that he's been having hypertension for 10 years and his blood pressure has been uncontrolled for last 2 months where we'll be elevated and then the thi s past Wednesday at he had episode felt dizzy and then so he checked his blood pressure and the he saw that the blood pressure was low. He said the diastolic was 50 but he cannot tell me what was the systolic. Patient that he's having dizziness for last 2 weeks upon asking described for me he stated that he felt lightheaded and sometime felt dizzy on few occasion room is spining but predominately light headed with sitting to standing position. He denies of any ringing in the ears or hearing loss. Denies of any focal weakness. Denies off any visual disturbance or difficulty swallowing or getting his words out. Denies of any head trauma recently. He also stated that he is a having a headac he last couple days. He said that was mild denies any photophobia photophobia. Denies any nausea or vomiting. She stated that he follows up with a formstone fitter as an outpatient and that because of his episode of low blood pressure his losartan was decreased from 100 mg 1 tablet daily to 50 mg 1 tablet day at. His metoprolol was changed from the night it to morning. Regarding his blood sugar at he stated that his sugar ranges from 80-175 sometimes is in the 200s. Of Note the patient stated that he had cervical fusion in the past as well as he has lower back pain. He has intermittent numbness of his hands from 1-3rd digit but currently he does not have numbness. Workup in the hospital consisted of: Initial vitals: Blood pressure of 164/104, heart rate of 99, respiratory of 18, temperature of 97.8 Fahrenheit oral and pulse ox of 98% room air. EKG is reported as normal sinus rhythm. Left axis deviation. Abnormal EKG. Echocardiogram is reported as this was technically adequate study. Ejection fraction 55%. Normal left atrial size. She had a stress test during this hospital stay and she reported as nondiagnostic electrode cardiograph stress testing. Nuclear imaging will be the reported separately. Patient initial MCV was 98.6 repeated is 100.7. Patient creatinine is 1.48. Review of Systems Review of system: The 12 point system was reviewed and apparent positive and negative per HPI. Past Medical History Past Medical History: Cancer, Heart Failure, CVA/TIA, GERD/Reflux, Hypertension, Skin Disorder Additional Past Medical History / Comment(s): TMJ, sinus problems, eczema, kidney stones, diverticulitis, ulcers, abd. pain, back pain, implants, fractures, physical limitations, numbness and tingling both legs and both hands. Uses a cane at times. Removal of skin cancer. DX WITH HYPERREFLEXIA, "Swollen nerves in eyes." CVA NOV 2018, WBC count high seeing Dr. Luna. 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 PVD History of Any Multi-Drug Resistant Organisms: None Reported Past Surgical History: Adenoidectomy, Hernia Repair, Orthopedic Surgery, Tonsillectomy Additional Past Surgical History / Comment(s): Neck fusion, colonoscopy, left knee arthroscopy, bilateral carpal tunnel surgery, PAIN CLINIC INJECTIONS, BILAT CUBITAL SX ON ELBOWS, EGD. Past Anesthesia/Blood Transfusion Reactions: No Reported Reaction Past Psychological History: Anxiety, Depression Additional Psychological History / Comment(s): . Has custody of his 3 daughters. Positive tobacco use. No notation of significant alcohol or recreational drug use. No experience. Has worked as a oseguera. No international travel. No animal exposures Smoking Status: Former smoker Past Alcohol Use History: None Reported Additional Past Alcohol Use History / Comment(s): SMOKES 1PPD SINCE AGE 16. Past Drug Use History: None Reported - Past Family History Mother Family Medical History: Cancer Father Family Medical History: Cancer Medications and Allergies Home Medications Medication Instructions Recorded Confirmed Type Atorvastatin [Lipitor] 10 mg PO HS 04/16/14 11/20/20 History Ergocalciferol [Vitamin D2 50,000 unit PO MO 07/09/14 11/20/20 History (DRISDOL)] DULoxetine HCL [Cymbalta] 60 mg PO HS 12/31/14 11/20/20 History Tamsulosin HCl [Flomax] 0.4 mg PO HS 12/31/14 11/20/20 History Cetirizine HCl [Zyrtec] 10 mg PO DAILY 11/17/18 11/20/20 History Levothyroxine Sodium [Synthroid] 88 mcg PO DAILY 11/17/18 11/20/20 History Losartan Potassium 50 mg PO HS 11/17/18 11/20/20 History Testosterone Cypionate 200 mg IM Q14D 11/17/18 11/20/20 History [Depo-Testosterone] metFORMIN HCL 1,000 mg PO BID 11/17/18 11/20/20 History traZODone HCL 100 mg PO HS 11/17/18 11/20/20 History Metoprolol Succinate 200 mg PO DAILY 01/04/19 11/20/20 History Cariprazine HCl [Vraylar] 1.5 mg PO DAILY 11/21/19 11/20/20 History buPROPion HCL [Wellbutrin XL] 300 mg PO DAILY 01/03/20 11/20/20 History Clopidogrel [Plavix] 75 mg PO DAILY 04/02/20 11/20/20 History Fenofibrate [Lofibra] 54 mg PO HS 04/30/20 11/20/20 History Meloxicam [Mobic] 15 mg PO DAILY 04/30/20 11/20/20 History Spironolactone [Aldactone] 25 mg PO DAILY 04/30/20 11/20/20 History Famotidine 20 mg PO DAILY PRN 06/24/20 11/20/20 History hydrALAZINE HCL 50 mg PO BID 06/24/20 11/20/20 History Pantoprazole Sodium [Protonix] 40 mg PO BID 10/10/20 11/20/20 History Pregabalin [Lyrica] 100 mg PO TID 30 Days #90 cap 10/16/20 11/20/20 Rx Albuterol Inhaler [Ventolin Hfa 2 puff INHALATION RT-QID PRN 11/20/20 11/20/20 History Inhaler] Furosemide [Lasix] 20 mg PO DAILY 11/20/20 11/20/20 History HYDROcodone/APAP 10-325MG [Fontana 1 tab PO TID 11/20/20 11/20/20 History 10-325] glipiZIDE [Glucotrol] 5 mg PO PC-SUPPER 11/20/20 11/20/20 History tiZANidine [Zanaflex] 4 mg PO TID 11/20/20 11/20/20 History Allergies Allergy/AdvReac Type Severity Reaction Status Date / Time adhesive tape Allergy Rash/Hives Verified 11/20/20 15:37 cefaclor [From Ceclor] Allergy Rash/Hives Verified 11/20/20 15:37 Iodinated Contrast Media Allergy Rash/Hives,throat Verified 11/20/20 15:37 [Iodinated Contrast Media - swelling IV Dye] propoxyphene napsylate Allergy Rash/Hives Verified 11/20/20 15:37 [From Darvocet-N 100] Sulfa (Sulfonamide Allergy Dyspnea Verified 11/20/20 15:37 Antibiotics) sulfamethoxazole Allergy Rapid Verified 11/20/20 15:37 [From Bactrim] Heart Rate trimethoprim [From Bactrim] Allergy Rapid Verified 11/20/20 15:37 Heart Rate Physical Examination - Vital Signs Vital Signs: Vital Signs Temp Pulse Pulse Resp BP BP Pulse Ox 11/21/20 14:00 97.5 F L 85 18 114/77 95 11/21/20 12:23 82 16 159/104 98 11/21/20 08:00 74 16 11/21/20 07:40 97.7 F 74 16 154/92 98 11/21/20 07:12 98 11/21/20 02:50 97.7 F 73 15 105/76 99 11/20/20 22:19 75 135/89 11/20/20 20:01 97.5 F L 72 16 114/72 97 11/20/20 16:00 97.9 F 90 18 135/92 96 Intake and Output 11/21/20 11/21/20 11/21/20 06:59 14:59 22:59 Intake Total 100 Balance 100 Intake: Oral 100 Other: Voiding Method Toilet # Voids 3 Weight 95.25 kg GENERAL: The patient is lying in bed and is not in acute distress. CHEST: The heart rate is regular rate rhythm. No murmurs to auscultation. No carotid bruit bilaterally. LUNG: Clear to auscultation bilaterally no wheezing noted throughout. Not labored breathing. ABDOMEN/GI: Bowel sounds present in all 4 quadrants. No tenderness to palpation throughout. NEUROLOGICAL: Higher mental function: The patient is awake, alert, oriented to self, place and time. Patient is following commands. No aphasia and no neglect. Cranial nerves: The pupils are round, equal and reactive to light and accommodation. Visual bergman are full to confrontation throughout. Extraocular movement is intact no nystagmus is noted. Facial sensation is normal to touch throughout. The facial strength is normal throughout. Hearing is normal bilaterally to hand rub. Tongue is midline and moved [id number] without any difficulty. No dysarthria is noted. Shoulder shrug is normal bilaterally. Motor: Gait is normal with normal arm swings. The strength is 5 over 5 throughout. Normal tone and bulk. Cerebellum: Normal finger to nose heel to chin bilaterally. Sensation: Sensation is normal to touch throughout. Reflexes (right/left): 2+ Plantars are downgoing bilaterally. Results Patient initial serum glucose is 132. Coordination study are within the normal limits. An INR is 1.0. - Laboratory Findings CBC and BMP: 11/21/20 06:20 11/21/20 15:00 Abnormal Lab Findings: Abnormal Labs 11/20/20 11/20/20 11/21/20 14:10 21:32 06:20 RBC 4.20 L MCV 100.7 H Creatinine 1.48 H Glucose 132 H POC Glucose (mg/dL) 100 H Magnesium 1.4 L 11/21/20 07:29 RBC MCV Creatinine Glucose POC Glucose (mg/dL) 106 H Magnesium Assessment and Plan Assessment: This is a 50-year-old gentleman with multiple medical problem who presented to the emergency department on 11/20/2020 for intermittent chest pain and shortness of breath for 1 day at. Acute Vertigo (seem peripheral)/Light headedness with position: Seem possibly autonomic from history of diabetes vs cardiac (since stated was told has vascular insuffiency of lower venous system). Rule out benign position vertigo (unlikely). History of cervical stenosis status post fusion in the past Intermittent paresthesia of the bilateral hands especially the 3 digits. Possibly carpal tunnel syndrome Hypertension (for last 10 years) Acute kidney injury Diabetes mellitus (for past 10 years) Hypercholesterolemia This is a 50-year-old gentleman medical history of diabetes, hypertension, hypercholesterolemia that presented emergency department on 11/20/2020 for an intermittent chest pain and shortness of breath for the last 1 day. Workup in the hospital consisted of: Initial vitals: Blood pressure of 164/104, heart rate of 99, respiratory of 18, temperature of 97.8 Fahrenheit oral and pulse ox of 98% room air. EKG is reported as normal sinus rhythm. Left axis deviation. Abnormal EKG. Echocardiogram is reported as this was technically adequate study. Ejection fraction 55%. Normal left atrial size. She had a stress test during this hospital stay and she reported as nondiagnostic electrode cardiograph stress testing. Nuclear imaging will be the reported separately. Patient initial MCV was 98.6 repeated is 100.7. The hemoglobin is normal as well as the hematocrit. Patient creatinine is 1.48. Plan: I ordered the orthostatic vitals with a heart rate and blood pressure. If that is normal possibly consider tilt table test and possibly that can be done as an outpatient. I ordered CT of the head that. I notified the patient the MRI the brain is not warranted at this time because there is no other findings that would suggest that this is a posture circulation stroke. I notified him to follow up with a neurologist as an outpatient and the was deferred requesting MRI the brain as an outpatient but this time I don't think its needed. I ordered hemoglobin A1c, vitamin B12 and folate especially that the patient's having intermittent numbness of the 1-3rd digits. Consider getting EMG with nerve conduction study as an outpatient. Recommend strict control of the patient's diabetes management. Because of the patient history of cervical stenosis with fusion the numbness of the the first to the third digits and lower back pain as well as of this possible dizziness I notified him to follow up with a neurologist as an outpatient within 1-2 weeks. Cardiology is on board and we will defer the rest of the cardiac workup to them. We'll defer the rest of the medical management to the primary team. The plan was discussed with the patient as well as the patient's nurse. Thank you for the consultation. Alex Sr M.D. Neuro-hospitalist Time with Patient: Greater than 30
[2020-11-21 17:05] LABS: Glucose,Whole Blood 122 mg/dL (75-99)
[2020-11-21] MEDS: glipiZIDE 5 MG TAB PO SCH (18:00)
[2020-11-21] MEDS ORDERED: diphenhydrAMINE 50 MG/ML 1 ML VIAL ONE (18:02)
--- NOTE | 2020-11-21 18:18 | CT ---
EXAMINATION TYPE: CT brain wo con DATE OF EXAM: 11/21/2020 COMPARISON: None HISTORY: Dizziness. CT DLP: 1120.7 mGycm Automated exposure control for dose reduction was used. There is mild cerebral atrophy. There is no mass effect nor midline shift. There is no sign of intrac ranial hemorrhage. Calvarium is intact. Sella turcica appears normal. IMPRESSION: Cerebral atrophy. No acute intracranial abnormality.
[2020-11-21 19:58] LABS: Glucose,Whole Blood 147 mg/dL (75-99)
[2020-11-21] MEDS: TAMSULOSIN 0.4 MG CAP.ER.24H PO SCH (22:26)
[2020-11-21] MEDS: traZODone HCL 100 MG TAB PO SCH (22:26)
[2020-11-21] MEDS: MECLIZINE 12.5 MG TAB PO SCH (22:26)
[2020-11-21] MEDS: DULoxetine HCL 60 MG CAPSULE.DR PO SCH (22:26)
[2020-11-21] MEDS: FENOFIBRATE 54 MG TAB PO SCH (22:26)
[2020-11-21] MEDS: HEPARIN SODIUM,PORCINE 5,000 UNIT/ML 1 ML VIAL SQ SCH (22:27)
[2020-11-22] MEDS: LEVOTHYROXINE 88 MCG TAB PO SCH (05:49)
[2020-11-22] MEDS: ALBUTEROL HFA INHALER INHALATION PRN ×2 (08:04→15:26)
[2020-11-22 08:19] LABS: Glucose,Whole Blood 130 mg/dL (75-99)
[2020-11-22] MEDS: INSULIN ASPART (NovoLOG) 100 UNIT/ML VIAL SQ SCH ×3 (08:53→17:41)
[2020-11-22] MEDS: ASPIRIN 81 MG PO SCH (08:54)
[2020-11-22] MEDS: HEPARIN SODIUM,PORCINE 5,000 UNIT/ML 1 ML VIAL SQ SCH (08:54)
[2020-11-22] MEDS: buPROPion XL 300 MG TAB.ER.24H PO SCH (08:54)
[2020-11-22] MEDS: hydrALAZINE HCL 50 MG TAB PO SCH (08:54)
[2020-11-22] MEDS: PREGABALIN 100 MG CAP PO SCH ×2 (08:55→16:24)
[2020-11-22] MEDS: MECLIZINE 12.5 MG TAB PO SCH (08:55)
[2020-11-22] MEDS: PANTOPRAZOLE 40 MG TABLET PO SCH (08:55)
[2020-11-22] MEDS: METOPROLOL SUCCINATE (ER) 100 MG TAB.ER.24H PO SCH (08:55)
[2020-11-22] MEDS: tiZANidine 4 MG TAB PO SCH ×2 (08:56→16:25)
[2020-11-22] MEDS: HYDROcodone/APAP 10-325MG 1 EACH TAB PO PRN (09:09)
--- NOTE | 2020-11-22 09:34 | P.PN ---
Subjective HISTORY OF PRESENTING ILLNESS This is a pleasant 50-year-old male past medical history significant for hypertension, CVA 2 years ago, chronic pain syndrome, diabetes mellitus, gastroesophageal reflux disease, hypothyroidism, depression and chronic nicotine dependence. The patient states he quit smoking 2 weeks ago. He follows in the office with Dr. Harper. Pt is seen and examined sitting up in bed eating breakfast. He denies chest pain, shortness of breath, dizziness or palpitations. Blood pressure 98/65 heart rate 78 afebrile maintaining oxygen saturation on room air. Stress test results discussed with the patient. Discussion with Dr. Gonzalez in Dr. Harper as well as reviewed the films. The abnormality is thought to be shadowing or soft tissue attenuation. Neurology is following PHYSICAL EXAMINATION CONSTITUTIONAL: No apparent distress. Obese. HEENT: Head is normocephalic. Pupils are equal, round. Sclerae anicteric. Mucous membranes of the mouth are moist. No JVD. No carotid bruit. CHEST EXAMINATION: Lungs are clear to auscultation. No chest wall tenderness is noted on palpation or with deep breathing. HEART EXAMINATION: Regular rate and rhythm. S1, S2 heard. No murmurs, gallops or rub. EXTREMITIES: 2+ peripheral pulses, bilateral lower extremity edema nonpitting and no calf tenderness. ASSESSMENT Chest pain and shortness of breath History of hypertension with episodes of hypotension Headache Acute kidney injury Diabetes mellitus Dyslipidemia GERD Chronic nicotine dependence PLAN Dr. Gonzalez spoke with Dr. Harper and the plan is to let him go home and see Dr. Harper next week in the office. The stress test abnormality appears to be related to soft tissue attenuation and not reversible ischemia. Dr. Harper can also address the need for an outpatient tilt table test that was suggested by neurology. Stable for discharge from a cardiac perspective. Nurse Practitioner note has been reviewed, I agree with a documented findings and plan of care. Patient was seen and examined. Objective - Vital Signs Vital signs: Vital Signs Temp 97.5 F L 11/22/20 01:35 Pulse 78 11/22/20 01:35 Resp 14 11/22/20 01:35 BP 98/65 11/22/20 01:35 Pulse Ox 92 L 11/22/20 01:35 Intake & Output 11/21/20 11/22/20 11/22/20 18:59 06:59 18:59 Intake Total 100 Balance 100 Weight 95.25 kg Intake: Oral 100 Other: Voiding Method Toilet Toilet # Voids 3 2 - Labs CBC & Chem 7: 11/21/20 06:20 11/21/20 15:00 Labs: Abnormal Lab Results - Last 24 Hours (Table) 11/21/20 11/21/20 11/21/20 Range/Units 06:20 06:20 15:00 Sodium 135 L (137-145) mmol/L Potassium 5.8 H (3.5-5.1) mmol/L Carbon Dioxide 20 L (22-30) mmol/L Creatinine 1.32 H (0.66-1.25) mg/dL Est GFR (CKD-EPI)NonAf 53.5 L (60.0-200.0) BUN/Creatinine Ratio 11.33 L (12.00-20.00) Ratio Glucose 119 H 213 H (70-110) mg/dL POC Glucose (mg/dL) (75-99) mg/dL Triglycerides 163.0 H (0.0-149.0) mg/dL HDL Cholesterol 27.0 L (40.0-60.0) mg/dL Vitamin B12 160.0 L (200.0-944.0) pg/mL 11/21/20 11/21/20 11/22/20 Range/Units 17:03 19:55 08:17 Sodium (137-145) mmol/L Potassium (3.5-5.1) mmol/L Carbon Dioxide (22-30) mmol/L Creatinine (0.66-1.25) mg/dL Est GFR (CKD-EPI)NonAf (60.0-200.0) BUN/Creatinine Ratio (12.00-20.00) Ratio Glucose (70-110) mg/dL POC Glucose (mg/dL) 122 H 147 H 130 H (75-99) mg/dL Triglycerides (0.0-149.0) mg/dL HDL Cholesterol (40.0-60.0) mg/dL Vitamin B12 (200.0-944.0) pg/mL
[2020-11-22 09:48] VITALS: RESP 18
[2020-11-22 10:38] LABS: African American GFR (CKD) 73 (>60 ml/min/1.73 sqM); Anion Gap 4 mmol/L; Blood Urea Nitrogen 14 mg/dL (9-20); Calcium 10.1 mg/dL (8.4-10.2); Carbon Dioxide 29 mmol/L (22-30); Chloride 104 mmol/L (98-107); Glucose 246 mg/dL (74-99); Non-African American GFR(CKD) 63 (>60 ml/min/1.73 sqM); Potassium 5.2 mmol/L (3.5-5.1); Sodium 137 mmol/L (137-145)
[2020-11-22] MEDS ORDERED: SODIUM POLYSTYRENE SULFONATE 15 GM/60 ML BOTTLE PO STA (11:01)
[2020-11-22] MEDS ORDERED: DEXTROSE 50% SYRINGE 50 ML IVP STA (11:04)
[2020-11-22] MEDS ORDERED: INSULIN ASPART (NovoLOG) 100 UNIT/ML VIAL SQ ONE (11:04)
[2020-11-22] MEDS ORDERED: CYANOCOBALAMIN 1,000 MCG/ML 1 ML VIAL IM ONE (11:14)
[2020-11-22] MEDS ORDERED: FOLIC ACID 1 MG TAB PO SCH (11:30)
[2020-11-22 11:40] LABS: Glucose,Whole Blood 304 mg/dL (75-99)
--- NOTE | 2020-11-22 11:54 | P.PN ---
Subjective Progress Note Date: 11/22/20 The patient was seen today in the he stated that he feels about the same today compared to yesterday. He denies of any focal weakness, numbness, visual disturbance. He dated that he had the severe alcohol use from the age of 21 to 30 years ago (for about 9 years). Patient vitamin B-12 is 160 which is low. His hemoglobin A1c is 6.0. His red blood cell folate is pending. His CT of the head is reported as cerebral atrophy. No acute intracranial abnormality. Upon reviewing that the patient has a generalized atrophy greater for the patient's age. The patient also has dilated fourth ventricle compared to the lateral ventricles. There is no intracranial mass. There is no acute or encephalomalacia seen. Currently his potassium is elevated again at 5.2. Objective - Vital Signs Vital signs: Vital Signs Temp 98.5 F 11/22/20 08:00 Pulse 87 11/22/20 08:00 Resp 18 11/22/20 08:00 BP 154/93 11/22/20 08:00 Pulse Ox 98 11/22/20 08:00 Intake & Output 11/21/20 11/22/20 11/22/20 18:59 06:59 18:59 Intake Total 100 Balance 100 Weight 95.25 kg Intake: Oral 100 Other: Voiding Method Toilet Toilet # Voids 3 2 - Exam GENERAL: The patient is lying in bed and is not in acute distress. NEUROLOGICAL: Higher mental function: The patient is awake, alert, oriented to self, place and time. Patient is following commands. No aphasia and no neglect. Cranial nerves: The pupils are round, equal and reactive to light and accommodation. Visual bergman are full to confrontation throughout. Extraocular movement is intact no nystagmus is noted. Facial sensation is normal to touch throughout. The facial strength is normal throughout. Hearing is normal bilaterally to hand rub. Tongue is midline and moved [id number] without any difficulty. No dysarthria is noted. Shoulder shrug is normal bilaterally. Motor: Gait is normal with normal arm swings. The strength is 5 over 5 throughout. Normal tone and bulk. Cerebellum: Normal finger to nose heel to chin bilaterally. Sensation: Sensation is normal to touch throughout. Reflexes (right/left): 2+ Plantars are downgoing bilaterally. - Labs CBC & Chem 7: 11/21/20 06:20 11/22/20 14:23 Labs: Abnormal Lab Results - Last 24 Hours (Table) 11/21/20 11/21/20 11/21/20 Range/Units 06:20 06:20 15:00 Sodium 135 L (137-145) mmol/L Potassium 5.8 H (3.5-5.1) mmol/L Carbon Dioxide 20 L (22-30) mmol/L Creatinine 1.32 H (0.66-1.25) mg/dL Est GFR (CKD-EPI)NonAf 53.5 L (60.0-200.0) BUN/Creatinine Ratio 11.33 L (12.00-20.00) Ratio Glucose 119 H 213 H (70-110) mg/dL POC Glucose (mg/dL) (75-99) mg/dL Triglycerides 163.0 H (0.0-149.0) mg/dL HDL Cholesterol 27.0 L (40.0-60.0) mg/dL Vitamin B12 160.0 L (200.0-944.0) pg/mL 11/21/20 11/21/20 11/22/20 Range/Units 17:03 19:55 08:17 Sodium (137-145) mmol/L Potassium (3.5-5.1) mmol/L Carbon Dioxide (22-30) mmol/L Creatinine (0.66-1.25) mg/dL Est GFR (CKD-EPI)NonAf (60.0-200.0) BUN/Creatinine Ratio (12.00-20.00) Ratio Glucose (70-110) mg/dL POC Glucose (mg/dL) 122 H 147 H 130 H (75-99) mg/dL Triglycerides (0.0-149.0) mg/dL HDL Cholesterol (40.0-60.0) mg/dL Vitamin B12 (200.0-944.0) pg/mL 11/22/20 Range/Units 10:07 Sodium (137-145) mmol/L Potassium 5.2 H (3.5-5.1) mmol/L Carbon Dioxide (22-30) mmol/L Creatinine 1.32 H (0.66-1.25) mg/dL Est GFR (CKD-EPI)NonAf (60.0-200.0) BUN/Creatinine Ratio (12.00-20.00) Ratio Glucose 246 H (70-110) mg/dL POC Glucose (mg/dL) (75-99) mg/dL Triglycerides (0.0-149.0) mg/dL HDL Cholesterol (40.0-60.0) mg/dL Vitamin B12 (200.0-944.0) pg/mL Assessment and Plan Assessment: This is a 50-year-old gentleman with multiple medical problem who presented to the emergency department on 11/20/2020 for intermittent chest pain and shortness of breath for 1 day at. Acute Vertigo (seem peripheral)/Light headedness with position: Not peripheral stroke But rather seems possibly cardiac vs (since stated was told has vascular insuffiency of lower venous system) vs vitamin B12 defiency vs ?autonomic dysfucntion (from history of diabetes (HbA1c: 6.0--seems controlled) Acute Vitamin B12 Deficiency Generalized brain atrophy on CT head greater than patient's age (one possibility is history of alcohol use) Enlarged 4th ventricle: Unknown cause. History of cervical stenosis status post fusion in the past Intermittent paresthesia of the bilateral hands especially the 3 digits. Possibly due to vitamin defiency (B12) vs carpal tunnel syndrome Hypertension (for last 10 years) Acute hyperkalemia Acute kidney injury Diabetes mellitus (for past 10 years) Hypercholesterolemia . Plan: I ordered the vitamin B12 1000 g intramuscular once stat. If the patient continues to be in the hospital we can continue the intramuscular for the next 2 days then the switch over to oral the patient was about to be discharged today then the patient can get the intramuscular dose today and then be discharged on the by mouth tablets. The RBC folic acid red blood cell is pending but I started the patient prophylactically on the folic acid 1 mg daily. The orthostatic that was done in the hospital as the supine blood pressure is 161/112 with a heart rate 79, sitting is blood pressure of 158/127 with a heart rate of 80 and standing as a 162/116 with a heart rate 78. Orthostatics are negative. Consider tilt table test and possibly that can be done as an outpatient. Regarding the enlarged fourth ventricle I told the patient, not sure what was it due to. I told him that he needs to follow-up with a neurologist as an outpatient especially with the multiple neurological symptoms that he is having especially with vitamin B12 deficiency, enlarged fourth ventricle as well as dizziness and that the follow-up with outpatient neurologist within 1-2 weeks. Having intermittent numbness of the 1-3rd digits. Consider getting EMG with nerve conduction study as an outpatient. Cardiology is on board and we will defer the rest of the cardiac workup to them. We'll defer the rest of the medical management to the primary team. The plan was discussed with the patient as well as the patient's nurse. The plan was discussed with the patient's nurse. There is no further work-up. Neurology will sign off. Please reconsult if needed. Alex Sr M.D. Neuro-hospitalist Time with Patient: Less than 30
[2020-11-22 15:33] VITALS: TEMP 98.6
[2020-11-22 17:05] LABS: Glucose,Whole Blood 86 mg/dL (75-99)
[2020-11-22] MEDS ORDERED: hydrALAZINE HCL 50 MG TAB PO SCH (17:16)
[2020-11-22 18:36] VITALS: BP 147/92; PULSE 92
--- NOTE | 2020-11-22 23:12 | P.DS ---
Providers Date of admission: 11/21/20 11:14 Attending physician: Pasquale Hdz MD Consults: 11/20/20 15:32 Consult Physician Urgent Consulting Provider: [facility] Consult Reason/Comments: Chest pain Do you want consulting provider notified?: Yes 11/21/20 14:31 Consult Physician Urgent Consulting Provider: Alex Sr Consult Reason/Comments: dizziness Do you want consulting provider notified?: Yes Primary care physician: Tristin Phillips [facility] Course: Diagnoses: Chest pain, hardwood floor finisher cleared the patient. D-dimer is negative at 0.2 Peripheral vertigo Chronic kidney disease rather than Acute kidney injury hypomagnesemia Bilateral leg swelling Bilateral numbness of feet and fingers History of schizophrenia Type 2 diabetes mellitus Hypertension Hyperlipidemia Chronic neck and back pain with history of lumbar spondylolisthesis and history of pain ejection Chronic heart failure History of CVA/TIA GERD History of kidney stone Diabetic neuropathy Hospital course: This is a pleasant 50 years old male with past medical history of type 2 diabetes mellitus, hypertension, hyperlipidemia, chronic neck and back pain status post back surgery, lumbar spondylosis, heart failure, CVA/TIA, GERD, kidney stone, diabetic neuropathy chronic leukocytosis , schizophrenia. He is a patient of Dr. Phillips who presents because of chest pain of one-day duration, patient has been evaluated by hardwood floor finisher. Patient underwent a Lexiscan stress test which was nondiagnostic electrocardiographic part. While the nuclear part showed mild posterior lateral sutures induced ischemia which is not supported by polar maps or wall motion abnormality. Correlate for EKG changes (Dr. Gonzalez spoke with Dr. Harper and the plan is to let him go home and see Dr. Harper next week in the office. The stress test abnormality appears to be related to soft tissue attenuation and not reversible ischemia. Dr. Harper can also address the need for an outpatient tilt table test that was suggested by neuro logy.) Stable for discharge from a cardiac perspective. He also complains from some headache and lightheadedness and dizziness and bilateral leg swelling.However he denies weakness or acute numbness, no blurred vision, no difficulty talking or swallowing. Neurologist evaluated the patient and diagnosed him with peripheral vertigo, and a started on meclizine with improvement in his symptoms, however he recommended tilt table test which can be done as an outpatient. Planned he had low vitamin B12 at 160, received vitamin B12 injection and discharge on pills, patient informed about the importance of taking the vitamin B12, I talked to the patient and he wants a prescription to be sent to the pharmacy. Neurologist eventually cleared the patient for discharge with recommendation for him to follow-up as an outpatient with the neurologist, I thought to the patient and he told me he follow-up with Dr. Familia Booth, and today he told me he made an appointment with her on this coming Wednesday at 11/27. He has elevated potassium, improved with therapy to 4.6 upon discharge, patient was counseled to resume low potassium diet and follow-up with PCP to check his potassium and he agrees, Aldactone was stopped on admission. His blood pressure was elevated and hydralazine increased from 50 mg twice a day to 3 times a day, his blood pressure improved upon discharge Patient overall showed interval improvement in his symptoms, and he felt he can go home today. Patient was cleared for discharge by hardwood floor finisher and neurologist Problems and management plan were discussed with the patient and he verbalized understanding and acceptance Patient was found stable and can be discharged home however he needs follow-up as an outpatient. Patient was instructed to follow up with PCP Dr. Phillips within one week and patient agrees with the appointments made for him on 11/25 and told me he is going to follow up. Also I told me that he will follow-up with his neurologist Dr. Barbsoa on this coming Monday 11/27 as instructed, also I told me that he has appointment with Dr. Harper tomorrow Wednesday on 11/23 that he tends to follow-up as recommended. Also I instructed the patient to follow up with grain trader Dr. Orourke in 2 weeks and he agrees to call and make appointment Physical exam Gen: patient is a AAOx3, no distress CVS: S1-S2, RRR, no murmur Lungs: B/L CTA, no wheezing Abdomen: soft, no distention, no tenderness, positive bowel sounds Extremity: no leg edema or induration Time spent more than 35 minutes Plan - Discharge Summary New Discharge Prescriptions: New Meclizine [Antivert] 12.5 mg PO BID #60 tab Folic Acid 1 mg PO DAILY #30 tab Cyanocobalamin [Vitamin B-12] 1,000 mcg PO DAILY #30 tab Continue Atorvastatin [Lipitor] 10 mg PO HS DULoxetine HCL [Cymbalta] 60 mg PO HS Tamsulosin HCl [Flomax] 0.4 mg PO HS Levothyroxine Sodium [Synthroid] 88 mcg PO DAILY Losartan Potassium 50 mg PO HS metFORMIN HCL 1,000 mg PO BID Testosterone Cypionate [Depo-Testosterone] 200 mg IM Q14D traZODone HCL 100 mg PO HS Metoprolol Succinate 200 mg PO DAILY Cariprazine HCl [Vraylar] 1.5 mg PO DAILY buPROPion HCL [Wellbutrin XL] 300 mg PO DAILY Clopidogrel [Plavix] 75 mg PO DAILY Fenofibrate [Lofibra] 54 mg PO HS Famotidine 20 mg PO DAILY PRN PRN Reason: Heartburn hydrALAZINE HCL 50 mg PO BID Pantoprazole Sodium [Protonix] 40 mg PO BID Pregabalin [Lyrica] 100 mg PO TID 30 Days #90 cap Albuterol Inhaler [Ventolin Hfa Inhaler] 2 puff INHALATION RT-QID PRN PRN Reason: Shortness Of Breath Furosemide [Lasix] 20 mg PO DAILY glipiZIDE [Glucotrol] 5 mg PO PC-SUPPER HYDROcodone/APAP 10-325MG [[place] 10-325] 1 tab PO TID tiZANidine [Zanaflex] 4 mg PO TID Discontinued Ergocalciferol [Vitamin D2 (DRISDOL)] 50,000 unit PO MO Cetirizine HCl [Zyrtec] 10 mg PO DAILY Spironolactone [Aldactone] 25 mg PO DAILY Meloxicam [Mobic] 15 mg PO DAILY Discharge Medication List Atorvastatin [Lipitor] 10 mg PO HS 04/16/14 [History] DULoxetine HCL [Cymbalta] 60 mg PO HS 12/31/14 [History] Tamsulosin HCl [Flomax] 0.4 mg PO HS 12/31/14 [History] Levothyroxine Sodium [Synthroid] 88 mcg PO DAILY 11/17/18 [History] Losartan Potassium 50 mg PO HS 11/17/18 [History] Testosterone Cypionate [Depo-Testosterone] 200 mg IM Q14D 11/17/18 [History] metFORMIN HCL 1,000 mg PO BID 11/17/18 [History] traZODone HCL 100 mg PO HS 11/17/18 [History] Metoprolol Succinate 200 mg PO DAILY 01/04/19 [History] Cariprazine HCl [Vraylar] 1.5 mg PO DAILY 11/21/19 [History] buPROPion HCL [Wellbutrin XL] 300 mg PO DAILY 01/03/20 [History] Clopidogrel [Plavix] 75 mg PO DAILY 04/02/20 [History] Fenofibrate [Lofibra] 54 mg PO HS 04/30/20 [History] Famotidine 20 mg PO DAILY PRN 06/24/20 [History] hydrALAZINE HCL 50 mg PO BID 06/24/20 [History] Pantoprazole Sodium [Protonix] 40 mg PO BID 10/10/20 [History] Pregabalin [Lyrica] 100 mg PO TID 30 Days #90 cap 10/16/20 [Rx] Albuterol Inhaler [Ventolin Hfa Inhaler] 2 puff INHALATION RT-QID PRN 11/20/20 [History] Furosemide [Lasix] 20 mg PO DAILY 11/20/20 [History] HYDROcodone/APAP 10-325MG [[place] 10-325] 1 tab PO TID 11/20/20 [History] glipiZIDE [Glucotrol] 5 mg PO PC-SUPPER 11/20/20 [History] tiZANidine [Zanaflex] 4 mg PO TID 11/20/20 [History] Cyanocobalamin [Vitamin B-12] 1,000 mcg PO DAILY #30 tab 11/22/20 [Rx] Folic Acid 1 mg PO DAILY #30 tab 11/22/20 [Rx] Meclizine [Antivert] 12.5 mg PO BID #60 tab 11/22/20 [Rx] Follow up Appointment(s)/Referral(s): Cary Orourke MD [STAFF PHYSICIAN] - 1 Week Gabby Harper MD [STAFF PHYSICIAN] - 1 Week (Office will call with appointment time you have appointment with your hardwood floor finisher tomorrow wednesday on 11/23 as you informed the medical staff please ask about tilt table test ) Emmy Barbosa MD [REFERRING] - 2 Weeks (neurologist you have appointment with your neurologist this coming wednesday on 11/27 as you informed the medical staff) Tristin Phillips DO [Primary Care Provider] - 11/25/20 10:20 am (appointment made for 11/25/20 @ 10:20 am with Cleo please check your potassium level with your doctor ) Patient Instructions/Handouts: Chest Pain (GEN), Dizziness (GEN) Activity/Diet/Wound Care/Special Instructions: low potassium diet , try to avoid or limit fruits and vegetable eg no banana or oranges activity is restricted till you see your doctor Discharge Disposition: HOME SELF-CARE
[2020-11-23] MEDS ORDERED: CYANOCOBALAMIN 500 MCG TAB PO SCH (09:00)
[2020-11-25] MEDS ORDERED: ERGOCALCIFEROL 1,250 MCG (50,000 IU) CAPSULE PO SCH (09:00)
== END 2020-11-22 19:10 | disposition home or self-care (01) ==
LOC: EC 13:03 → 6NMEDSUR 15:32 → OBSVTOIN 11-21 11:14 → INTOOBSV 11-21 11:14 → UNDODISIN 11-22 19:10
PROVIDERS: ADMIT Internal Medicine; ATTEND Internal Medicine
DX: R07.9 Chest pain, unspecified (principal); E11.9 Type 2 diabetes mellitus without complications; I10 Essential (primary) hypertension; E78.00 Pure hypercholesterolemia, unspecified; E53.8 Deficiency of other specified B group vitamins; I13.0 Hypertensive heart and chronic kidney disease with heart failure and stage 1 through stage 4 chronic kidney disease, or unspecified chronic kidney disease; E11.22 Type 2 diabetes mellitus with diabetic chronic kidney disease; N18.9 Chronic kidney disease, unspecified; I50.9 Heart failure, unspecified; E11.51 Type 2 diabetes mellitus with diabetic peripheral angiopathy without gangrene; E11.40 Type 2 diabetes mellitus with diabetic neuropathy, unspecified; E87.5 Hyperkalemia; E83.42 Hypomagnesemia; M79.89 Other specified soft tissue disorders; M54.9 Dorsalgia, unspecified; M54.2 Cervicalgia; M43.16 Spondylolisthesis, lumbar region; R51.9 Headache, unspecified; E78.5 Hyperlipidemia, unspecified; G89.4 Chronic pain syndrome; E03.9 Hypothyroidism, unspecified; Z86.73 Personal history of transient ischemic attack (TIA), and cerebral infarction without residual deficits; K21.9 Gastro-esophageal reflux disease without esophagitis; M26.609 Unspecified temporomandibular joint disorder, unspecified side; L30.9 Dermatitis, unspecified; Z87.442 Personal history of urinary calculi; Z87.19 Personal history of other diseases of the digestive system; R20.0 Anesthesia of skin; R20.2 Paresthesia of skin; Z85.828 Personal history of other malignant neoplasm of skin; F20.9 Schizophrenia, unspecified; R29.2 Abnormal reflex; Z98.890 Other specified postprocedural states; Z90.89 Acquired absence of other organs; Z98.1 Arthrodesis status; H81.399 Other peripheral vertigo, unspecified ear; F41.9 Anxiety disorder, unspecified; F32.9 Major depressive disorder, single episode, unspecified; Z87.891 Personal history of nicotine dependence; Z80.9 Family history of malignant neoplasm, unspecified; Z87.81 Personal history of (healed) traumatic fracture; Z79.84 Long term (current) use of oral hypoglycemic drugs; Z79.1 Long term (current) use of non-steroidal anti-inflammatories (NSAID); Z79.02 Long term (current) use of antithrombotics/antiplatelets; Z79.891 Long term (current) use of opiate analgesic; Z79.890 Hormone replacement therapy; Z79.899 Other long term (current) drug therapy; Z88.1 Allergy status to other antibiotic agents; Z91.041 Radiographic dye allergy status; Z88.5 Allergy status to narcotic agent; Z88.2 Allergy status to sulfonamides; Z91.09 Other allergy status, other than to drugs and biological substances
CPT/HCPCS: 96376; 96372 ×2; 96375 ×3; 93005 ×2; 96374; 99285; 36415; 94640 ×5; 94760; 93017; 93306; 97162; 97165; 85379; 82747; 83880; 80061; 80053; 80048 ×2; 82607; 83735 ×2; 84132; 84484; 85025 ×2; 85610; 85730; 83036; 71046; 93970; 70450; 78452; G0378 ×3; A9500; J0360; J1200; J0780; J3420; J1644 ×2; J3475; J2785

== ENCOUNTER → 2020-11-26 | Outpatient (CLI) | payer OTHER ==
--- NOTE | 2020-11-26 15:37 | NM ---
EXAMINATION TYPE: NM hepatobiliary w EF DATE OF EXAM: 11/26/2020 COMPARISON: NONE HISTORY: R10.11 RUQ abd pain TECHNIQUE: After the intravenous administration of 5.09 mCi Tc 99m Mebrofenin hepatobiliary scintigra phy is performed. Immediate images post injection. FINDINGS: There is satisfactory initial accumulation of tracer by the liver. The gallbladder is visualized wit hin 8 minutes. The small bowel activity is noted within 34 minutes. At one hour 8 ounces of oral en sure plus is given to mimic CCK and gallbladder ejection fraction is calculated at 69 %, in the yonis l range. Therefore there is no scintigraphic evidence of cystic or common bile duct obstruction to s uggest acute cholecystitis or gallbladder dyskinesia. IMPRESSION: Exam is within normal limits.
== END | disposition home or self-care (01) ==
LOC: RADNMMAIN 13:07
PROVIDERS: ATTEND Family Medicine
DX: R10.11 Right upper quadrant pain (principal)
CPT/HCPCS: 78226; A9537

== ENCOUNTER → 2020-12-07 | Outpatient (CLI) | payer OTHER ==
--- NOTE | 2020-12-07 13:16 | MR ---
EXAMINATION TYPE: MR lumbar spine wo con DATE OF EXAM: 12/07/2020 COMPARISON: 12/01/2018 HISTORY: LBP, spasms, LLE radic TECHNIQUE: Multiplanar, multisequence images of the lumbar spine were acquired. The lumbar vertebral segments are normal in both height and alignment and there is no fracture or sub luxation. There is loss of signal intensity from L2 through S1 indicating mild degenerative disc dise ase no no the disc spaces are well-maintained in height. There is no lumbar disc herniation. The conus medullaris and cauda equina appears normal and the neuroforamina are widely patent bilatera lly. There is no spinal stenosis. There is mild to moderate facet arthropathy at the L4 and L4-5 levels. The sacrum and SI joints appear normal. The paraspinal soft tissues are unremarkable. IMPRESSION: Mild degenerative changes. There is no fracture, subluxation, spinal stenosis or disc herniation.
== END | disposition home or self-care (01) ==
LOC: RADMRIMAIN 12:31
PROVIDERS: ATTEND Neurological Surgery
DX: M47.816 Spondylosis without myelopathy or radiculopathy, lumbar region (principal); S22.038 Other fracture of third thoracic vertebra
CPT/HCPCS: 72148

== ENCOUNTER → 2020-12-10 | Outpatient (CLI) | payer OTHER ==
--- NOTE | 2020-12-10 15:14 | MR ---
EXAMINATION TYPE: MR knee LT wo con DATE OF EXAM: 12/10/2020 COMPARISON: Non-. HISTORY: Left Knee Pain, Locking and swelling, Fell off a roof. TECHNIQUE: Multiplanar, multisequence imaging of the left knee is performed without IV contrast. FINDINGS: MEDIAL MENISCUS: Posterior horn shows oblique increased signal extends to inferior articular surface sagittal image 22. Anterior horn is intact. LATERAL MENISCUS: Anterior and posterior horns are intact without tear. CRUCIATE LIGAMENTS: The anterior and posterior cruciate ligaments are intact and unremarkable. COLLATERAL LIGAMENTS: The medial collateral ligament and lateral collateral ligament complex are inta ct and unremarkable. EXTENSOR MECHANISM: Visualized quadriceps and patellar tendons are intact. EFFUSION: No significant suprapatellar joint effusion. POPLITEAL CYST: Small size popliteal/salazar cyst. TRICOMPARTMENT SPACES: Mild to moderate tricompartment joint space loss and mild to moderate tricompa rtment spurring. CARTILAGE: Some thinning of articular cartilage medial tibiofemoral compartment. No full-thickness ca rtilaginous defect. BONE MARROW SIGNAL: No focal abnormal marrow signal is appreciated. OTHER: No additional significant abnormality is appreciated. IMPRESSION: 1. Oblique full-thickness tear posterior horn of medial meniscus. 2. [id number] tricompartmental degenerative changes as detailed above. 3. Small popliteal cyst.
== END | disposition home or self-care (01) ==
LOC: RADMRIMAIN 12:55
PROVIDERS: ATTEND Orthopaedic Surgery
DX: S83.242A Other tear of medial meniscus, current injury, left knee, initial encounter (principal); M17.12 Unilateral primary osteoarthritis, left knee; M71.22 Synovial cyst of popliteal space [Baker], left knee

== ENCOUNTER → 2020-12-11 | Outpatient (CLI) | payer OTHER ==
[2020-12-11 12:21] VITALS: BP 144/94; PULSE 95; RESP 18; TEMP 98.4
--- NOTE | 2020-12-11 12:49 | P.PAINPG ---
Subjective Progress Note Date: 12/11/20 Antonio is a 50-year-old gentleman presented today for follow-up. He reports he continues to have the same type pain. He was recently in the hospital for his heart. He reports his heart doctor would like for him to wean off pain medications. He continues to have the same pains in his neck and his low back. He has pain in the left side low back down to the left leg above the knee. There is no overt weakness. No bowel or bladder incontinence. He also has pain in the neck also the right side. He denies any bowel or bladder incontinence. He has chronic lower extremity edema. He has been following up with his doctors regarding this. He has been weaning off the pain medication as using [place] 2 times a day now set of 3. He is inquiring about how to wean off the pain medications safely. I discussed that we should continue with the tizanidine Lyrica for now and wean off of 1 medication at time. Like to wean off the [place] first. Objective - Vital Signs Vital signs: Vital Signs Temp 98.4 F 12/11/20 12:17 Pulse 95 12/11/20 12:17 Resp 18 12/11/20 12:17 BP 144/94 12/11/20 12:17 Pulse Ox 95 12/11/20 12:17 Intake & Output 12/10/20 12/11/20 12/11/20 18:59 06:59 18:59 Weight 92.986 kg - Exam General: Awake and alert oriented 3 no distress Respiratory exam: No audible wheezing no accessory muscle usage Cardiovascular exam: regular rate, palpable bilateral pulses, positive nonpitting lower extremity edema Abdominal exam: No distention nontender to palpation Cervical spine: There is increased thoracic kyphosis, Spurling's negative. Line Erector Apprentice strength is normal bilaterally. Lumbar spine: Loss of lumbar lordosis, normal alignment, tender to palpation over bilateral paraspinal muscles, facet loading is positive bilaterally. St raight leg raise is positive on the left . Limited range of motion due to pain with flexion, extension and side bending. Sacroiliac joints: Nontender to palpation, [place] is negative, [place] negative Neuro exam: Normal sensation in bilateral upper extremities, deep tendon reflexes are 2+ bilateral upper extremities. Normal sensation in bilateral lower extremities. Deep tendon reflexes are 2+ in lower extremities Psych exam: Cooperative, appropriate mood Assessment and Plan Assessment: #1 number radiculopathy #2 cervical spondylosis without myelopathy #3 peripheral neuropathy #4 type 2 diabetes #5 metabolic syndrome Plan: Had along discussion with the patient regarding his pain medication and dietary changes. We discussed that his diabetes is going to be his most important condition to control. We discussed dietary changes which include low carbohydrate diet and decreasing sugar intake. We discussed insulin resistance briefly. As for his pain medication I discussed that he should decreased by half a pill per week for about one month. I will give him a prescription for [place] 2 times a day be reduced over the next month and we'll follow-up with him in 4 weeks. Given his chronic kidney disease advise him not use any NSAIDs and only use Tylenol as needed. We'll see him back in 4 weeks to determine how he is doing with his progress. I've asked him to give us a call if there are any questions or concerns moving forward. He should continue with the tizanidine and Lyrica on a regular basis for now. I have spent 35 minutes on patient care today. The time was used to review the medical records including relevant urine studies and Prescription history (MAPs), review of the available imaging, evaluation and examination of the patient, coordination of care with the medical staff and if applicable referring physicians, as well as creation of the medical record. PQRS Measure Charge Sheet Measure #130: Documentation of Current Meds in Medical Chart: Patient's medications documented in chart PQRS Narrative: Smoking Status Current every day smoker Narcotic Agreement Date Signed 06/26/20 Blood Pressure 144/94 Pain Intensity [Lower Back] 8 Scale Used Numeric (1 - 10) Hx Alcohol Use (MH) No Home Medications: Ambulatory Orders Atorvastatin [Lipitor] 10 mg PO HS 04/16/14 DULoxetine HCL [Cymbalta] 60 mg PO HS 12/31/14 Tamsulosin HCl [Flomax] 0.4 mg PO HS 12/31/14 Levothyroxine Sodium [Synthroid] 88 mcg PO DAILY 11/17/18 Losartan Potassium 100 mg PO HS 11/17/18 Testosterone Cypionate [Depo-Testosterone] 200 mg IM Q14D 11/17/18 metFORMIN HCL 1,000 mg PO BID 11/17/18 traZODone HCL 100 mg PO HS 11/17/18 Metoprolol Succinate 100 mg PO DAILY 01/04/19 Cariprazine HCl [Vraylar] 1.5 mg PO DAILY 11/21/19 buPROPion HCL [Wellbutrin XL] 300 mg PO DAILY 01/03/20 Clopidogrel [Plavix] 75 mg PO DAILY 04/02/20 Fenofibrate [Lofibra] 54 mg PO HS 04/30/20 Famotidine 20 mg PO DAILY PRN 06/24/20 hydrALAZINE HCL 25 mg PO TID BETWEEN MEALS 06/24/20 Pantoprazole Sodium [Protonix] 40 mg PO BID 10/10/20 Albuterol Inhaler [Ventolin Hfa Inhaler] 2 puff INHALATION RT-QID PRN 11/20/20 Furosemide [Lasix] 20 mg PO DAILY PRN 11/20/20 glipiZIDE [Glucotrol] 5 mg PO PC-SUPPER 11/20/20 Cyanocobalamin [Vitamin B-12] 1,000 mcg PO DAILY #30 tab 11/22/20 Folic Acid 1 mg PO DAILY #30 tab 11/22/20 Meclizine [Antivert] 12.5 mg PO BID #60 tab 11/22/20 HYDROcodone/APAP 10-325MG [[place] 10-325] 1 tab PO BID PRN #60 tab 12/11/20 Pregabalin [Lyrica] 100 mg PO TID 30 Days #90 cap 12/11/20 tiZANidine [Zanaflex] 4 mg PO TID PRN 30 Days #90 tab 12/11/20 Controlled Substance Measures - Controlled Substance Measures Is patient prescribed a controlled substance at discharge?: Yes When asked, does pt state using other controlled substances?: No If prescribed controlled substance>3 days was MAPS reviewed?: Yes If Rx opioid, was Start Talking consent form obtained?: Yes If opioid is for acute pain is fill amount 7 days or less?: No Was information provided regarding opioid addiction?: Yes
== END | disposition home or self-care (01) ==
LOC: PNWHC3 12:10
PROVIDERS: ATTEND Hospitalist
DX: M47.9 Spondylosis, unspecified (principal); M54.10 Radiculopathy, site unspecified; G62.9 Polyneuropathy, unspecified; E88.81 Metabolic syndrome and other insulin resistance; E11.9 Type 2 diabetes mellitus without complications; Z79.890 Hormone replacement therapy; Z79.899 Other long term (current) drug therapy; Z79.891 Long term (current) use of opiate analgesic; Z79.84 Long term (current) use of oral hypoglycemic drugs; Z79.01 Long term (current) use of anticoagulants
CPT/HCPCS: 99211; 99212

== ENCOUNTER → 2020-12-23 | Outpatient (CLI) | payer OTHER ==
--- NOTE | 2020-12-23 11:44 | US ---
EXAMINATION TYPE: US kidneys/renal and bladder DATE OF EXAM: 12/23/2020 COMPARISON: CT 10/28/20 CLINICAL HISTORY: N18.3 chronic kidney stage 3. Difficulty urinating EXAM MEASUREMENTS: Right Kidney: 11.2 x 6.0 x 5.5 cm Left Kidney: 11.3 x 5.2 x 5.1 cm Post Void Residual Volume: 8.4 mL Right Kidney: No hydronephrosis or masses seen, lower pole, medial septated cyst = 2.2 x 2.2 x 1.9 cm Left Kidney: No hydronephrosis or masses seen Bladder: Possibly thick walled = 0.4 cm Bilateral Jets seen: Yes Normal Post Void Residual: Yes IMPRESSION: 1. Septated cyst medial lower right kidney. Monitoring with ultrasound is recommended. 2. Urinary bladder wall may be thickened. Consider cystitis.
== END | disposition home or self-care (01) ==
LOC: RADUSWWP 11:08
PROVIDERS: ATTEND Internal Medicine Nephrology
DX: N28.1 Cyst of kidney, acquired (principal); N18.31 Chronic kidney disease, stage 3a
CPT/HCPCS: 76770

== ENCOUNTER → 2020-12-23 | Outpatient (CLI) | payer OTHER ==
[2020-12-23 12:59] LABS: Appearance,Urine Clear (Clear); Bilirubin,Urine Negative (Negative); Blood,Urine Negative (Negative); Color,Urine Colorless; Glucose,Urine (UA) Negative (Negative); Ketones,Urine Negative (Negative); Leukocyte Esterase,Urine Negative (Negative); Nitrite,Urine Negative (Negative); Protein,Urine Negative (Negative); Specific Gravity,Urine 1.003 (1.001-1.035); Urobilinogen,Urine <2.0 mg/dL (<2.0)
[2020-12-23 13:06] LABS: Creatinine,Urine Random 22.4 mg/dL; Protein/Creatinine Ratio,Urine 0.625
[2020-12-23 19:00] LABS: Basophils # (A) 0.09 X 10*3/uL (0.00-0.10); Basophils % (A) 0.9 %; Eosinophils # (A) 0.27 X 10*3/uL (0.04-0.35); Eosinophils % (A) 2.7 %; HCT 44.3 % (39.6-50.0); HGB 14.1 g/dL (13.0-17.0); Lymphocytes # (A) 1.82 X 10*3/uL (0.90-5.00); Lymphocytes % (A) 18.4 %; MCH 32.1 pg (27.0-32.0); MCHC 31.8 g/dL (32.0-37.0); MCV 100.9 fL (80.0-97.0); Mean Platelet Volume 11.5 fL (9.5-12.2); Monocytes # (A) 0.66 X 10*3/uL (0.20-1.00); Monocytes % (A) 6.7 %; Neutrophils # (A) 7.02 X 10*3/uL (1.80-7.70); Platelet Count 342 X 10*3/uL (140-440); RBC 4.39 X 10*6/uL (4.40-5.60); RDW 11.9 % (11.5-14.5); WBC 9.89 X 10*3/uL (4.50-10.00)
[2020-12-23 19:16] LABS: % Iron Saturation 18.59 (15.00-50.00); African American GFR (CKD) 67.4 (60.0-200.0); Albumin 4.9 g/dL (3.80-4.90); Anion Gap 7.5 mmol/L (4.00-12.00); BUN/Creat Ratio 10.71 Ratio (12.00-20.00); Calcium 9.9 mg/dL (8.7-10.3); Carbon Dioxide 28.5 mmol/L (21.6-31.8); Magnesium 1.7 mg/dL (1.5-2.4); Non-African American GFR(CKD) 58.2 (60.0-200.0); Phosphorus 3.3 mg/dL (2.4-5.1); Potassium 4.5 mmol/L (3.5-5.5); Uric Acid 7.4 mg/dL (3.7-8.7)
[2020-12-23 19:25] LABS: Ferritin 44.2 ng/mL (22.0-322.0)
[2020-12-24 10:23] LABS: Free Kappa Lt Chain Qnt, Serum 2.18 mg/dL (0.33-1.94)
== END | disposition home or self-care (01) ==
LOC: LABWHC1 11:47
PROVIDERS: ATTEND Internal Medicine Nephrology
DX: E55.9 Vitamin D deficiency, unspecified (principal); D63.1 Anemia in chronic kidney disease; N18.31 Chronic kidney disease, stage 3a; N25.81 Secondary hyperparathyroidism of renal origin; N39.0 Urinary tract infection, site not specified; M10.9 Gout, unspecified; R80.9 Proteinuria, unspecified
CPT/HCPCS: 36415; 80048; 81003; 82040; 82306; 82570; 82728; 83540; 83550; 83735; 83883; 83970; 84100; 84156; 84550; 85025; 86335

== ENCOUNTER → 2021-01-08 | Outpatient (CLI) | payer OTHER ==
[2021-01-08 10:18] VITALS: BP 115/78; PULSE 92; RESP 16; TEMP 98.1
--- NOTE | 2021-01-31 13:52 | P.PAINPG ---
Subjective Progress Note Date: 01/08/21 Antonio is a 50-year-old gentleman presented today for follow-up. 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 We discussed weaning off one medication at a time, the [place] would be first followed by the [place]. Still has significant pain in his neck and his low back. Pain is worse in the low back with occasional radiation to the left anterior thigh stopping at the knee described as electric shocks. Also has pain in the neck worse on the right side. Has chronic lower extremity edema. Notes that in her last visit we weaned him to twice a day [place], and that is been all right. He would like to continue the medication wean. Of note she's been having significant anxiety and his therapist prescribed him Ativan 0.5 mg twice a day. He did not know that he should not be taking these along with his opioids and he does not take them currently. He will call this therapist and will ask for safer option that he can take with opioid medications. He is also interested in pursuing other procedures, in the past is done cervical epidurals, lumbar epidurals and cervical facet joint injections with limited relief. He most recently had a lumbar MRI which showed mild to moderate facet arthropathy L4-L5 and L5-S1. Otherwise there is no significant disc protrusions or nerve root impingement. - Exam General: Awake and alert oriented 3 no distress Respiratory exam: No audible wheezing no accessory muscle usage Cardiovascular exam: regular rate, palpable bilateral pulses, positive nonpitting lower extremity edema Abdominal exam: No distention nontender to palpation Cervical spine: There is increased thoracic kyphosis, Spurling's negative. 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 Lumbar spine: Loss of lumbar lordosis, normal alignment, tender to palpation over bilateral paraspinal muscles, facet loading is positive bilaterally. Straight leg raise is positive on the left . Limited range of motion due to pain with flexion, extension and side bending. Sacroiliac joints: Nontender to palpation, CH[place] is negative, [place] negative Neuro exam: Normal sensation in bilateral upper extremities, deep tendon reflexes are 2+ bilateral upper extremities. Normal sensation in bilateral lower extremities. Deep tendon reflexes are 2+ in lower extremities Psych exam: Cooperative, appropriate mood Assessment and Plan Assessment: #1 number radiculopathy #2 cervical spondylosis without myelopathy #3 peripheral neuropathy #4 type 2 diabetes #5 metabolic syndrome Plan: Had along discussion with the patient regarding his pain medication and dietary changes. I reiterated diabetic control would be gutierrez to his overall health moving forward. I also discussed with him that he should not be taking Ativan which she has not. He was on aware that these medications when combined opioids can produce significant respirator depression and possible . At this MRI there is evidence of facet arthropathy L4-L5 and L5-S1, we will schedule bilateral L4-L5 and L5-S1 medial branch blocks. We will also safely continue the medication wean and prescribing [place] for a total of 45 pills. We will see him in a month and then drop it down to 30. He can continue the tizanidine and Lyrica on a regular basis. I have spent 32 minutes on patient care today. The time was used to review the medical records including relevant urine studies and Prescription history (MAPs), review of the available imaging, evaluation and examination of the patient, coordination of care with the medical staff and if applicable referring physicians, as well as creation of the medical record. PQRS Measure Charge Sheet Measure #130: Documentation of Current Meds in Medical Chart: Patient's medications documented in chart PQRS Narrative: Smoking Status Current every day smoker Narcotic Agreement Date Signed 06/26/20 Blood Pressure 144/94 Pain Intensity [Lower Back] 8 Scale Used Numeric (1 - 10) Hx Alcohol Use (MH) No : PQRS Measure Charge Sheet PQRS Narrative: Smoking Status Current every day smoker Narcotic Agreement Date Signed 06/26/20 Hx Alcohol Use (MH) No Home Medications: Ambulatory Orders Atorvastatin [Lipitor] 10 mg PO HS 04/16/14 DULoxetine HCL [Cymbalta] 60 mg PO HS 12/31/14 Tamsulosin HCl [Flomax] 0.4 mg PO HS 12/31/14 Levothyroxine Sodium [Synthroid] 88 mcg PO DAILY 11/17/18 Losartan Potassium 100 mg PO HS 11/17/18 Testosterone Cypionate [Depo-Testosterone] 200 mg IM Q14D 11/17/18 metFORMIN HCL 1,000 mg PO BID 11/17/18 traZODone HCL 100 mg PO HS 11/17/18 Metoprolol Succinate 100 mg PO DAILY 01/04/19 Cariprazine HCl [Vraylar] 1.5 mg PO DAILY 11/21/19 buPROPion HCL [Wellbutrin XL] 300 mg PO DAILY 01/03/20 Clopidogrel [Plavix] 75 mg PO DAILY 04/02/20 Fenofibrate [Lofibra] 54 mg PO HS 04/30/20 Famotidine 20 mg PO DAILY PRN 06/24/20 hydrALAZINE HCL 25 mg PO TID BETWEEN MEALS 06/24/20 Pantoprazole Sodium [Protonix] 40 mg PO HS 10/10/20 Albuterol Inhaler [Ventolin Hfa Inhaler] 2 puff INHALATION RT-QID PRN 11/20/20 Furosemide [Lasix] 20 mg PO BID PRN 11/20/20 glipiZIDE [Glucotrol] 5 mg PO PC-SUPPER PRN 11/20/20 Cyanocobalamin [Vitamin B-12] 1,000 mcg PO DAILY #30 tab 11/22/20 Folic Acid 1 mg PO DAILY #30 tab 11/22/20 Acetaminophen [Tylenol Extra Strength] 1,000 mg PO Q6H PRN 01/06/21 Dapagliflozin Propanediol [Farxiga] 5 mg PO DAILY 01/06/21 Dicyclomine HCl 20 mg PO TID 01/06/21 Meclizine [Antivert] 25 mg PO BID 01/06/21 HYDROcodone/APAP 10-325MG [[place] 10-325] 1 tab PO BID PRN #45 tab 01/08/21 Pregabalin [Lyrica] 100 mg PO TID 30 Days #90 cap 01/08/21 tiZANidine [Zanaflex] 4 mg PO TID PRN 30 Days #90 tab 01/08/21 Controlled Substance Measures - Controlled Substance Measures Is patient prescribed a controlled substance at discharge?: Yes When asked, does pt state using other controlled substances?: No If prescribed controlled substance>3 days was MAPS reviewed?: Yes If Rx opioid, was Start Talking consent form obtained?: Yes If opioid is for acute pain is fill amount 7 days or less?: No Was information provided regarding opioid addiction?: Yes
== END | disposition home or self-care (01) ==
LOC: PNWHC3 10:02
PROVIDERS: ATTEND Anesthesiology
DX: M47.812 Spondylosis without myelopathy or radiculopathy, cervical region (principal); M54.16 Radiculopathy, lumbar region; E11.42 Type 2 diabetes mellitus with diabetic polyneuropathy; E88.81 Metabolic syndrome and other insulin resistance; F17.200 Nicotine dependence, unspecified, uncomplicated; Z79.891 Long term (current) use of opiate analgesic; Z79.84 Long term (current) use of oral hypoglycemic drugs; Z79.890 Hormone replacement therapy; Z79.899 Other long term (current) drug therapy
CPT/HCPCS: 99211

== ENCOUNTER 2021-02-07 08:52 | Day surgery (SDC) | payer OTHER ==
[2021-02-04 11:39] VITALS: BMI 34.6
[2021-02-07 09:15] VITALS: RESP 16; TEMP 97.9
[2021-02-07 09:27] LABS: Glucose,Whole Blood 82 mg/dL (75-99)
[2021-02-07] MEDS ORDERED: LIDOCAINE 1% (10MG/ML) FOR IV START INTRADERMA ONE (09:28)
[2021-02-07] MEDS ORDERED: methylPREDNISolone ACETATE 40 MG/ML 1 ML VIAL ONE (09:32)
[2021-02-07] MEDS ORDERED: ROPIVACAINE 5MG/ML 20ML VIAL ONE (09:32)
[2021-02-07] MEDS ORDERED: fentaNYL (PF) 50 MCG/ML 2 ML AMP ONE (09:32)
[2021-02-07] MEDS ORDERED: MIDAZOLAM 2 MG/2 ML VIAL ONE (09:32)
--- NOTE | 2021-02-07 09:49 | P.PCN ---
Date of Procedure: 02/07/21 Procedure(s) Performed: PREOPERATIVE DIAGNOSIS : 1- Lumbar spondylosis with Facet Arthropathy without myelopathy . POSTOPERATIVE DIAGNOSIS: 1- Lumbar spondylosis with Facet Arthropathy without myelopath. PROCEDURE: Diagnostic bilateral L3 , L4 , and L5 medial branch block under fluoroscopy guidance(fluoroscopy images available in the radiology Department ) ( To target the facet joint between L4-5 , and L5-S1 ) ANESTHESIA:, Monitored anesthesia care as per anesthesia department. EBL: Minimal COMPLICATION: None PROCEDURE INDICATION: Chronic low back pain secondary to Facet arthropathy unresponsive to conservative treatment. PROCEDURE DESCRIPTION: the patient was seen and identified in the preop holding area , risks and benefits and possible complications of the procedure and alternative were discussed with the patient, and the patient agreed to proceed with the procedure and signed the consent and vital signs monitored during the procedure and fluoroscopy was used to maximize the benefit and accuracy of the needle placement, and sedation was given to decrease patient anxiety, patient was taken to the procedure room and placed in prone position vital signs monitored in the back prepped with chlorhexidine X3 then under strict sterile technique using a right oblique fluoroscopy ,the junction of the transverse process and the superior articulating process of the right L3 , L4 , and L5 vertebra which corresponding to the fluoroscopy image of the eye of the Jm dog on the block side for the medial branches and subsequently , after local infiltration of skin and subcu tissuies with Ropivacaine 0.5 % , one mL at each level ,then 22-gauge Quincke-type needles , 3 needle was used , each one of them placed at the junction of the base of the transverse process and the superior articular process at the appropriate level, and the needle was advanced until the periosteum contacted, needle placement confirmed with AP oblique and lateral view and after appropriate needle placement confirmed, and after negative aspiration for heme and CSF and there was no paresthesia 1-1/2 mL of Ropivacaine 0.5% mixed with 20 mg Depo-Medrol , then half mL injected at each level after negative aspiration the needle subsequently removed and the same procedure repeated for the left side at left side at L3 , L4 and L5 levels. At the end of the procedure and the needles removed and a bandage applied after the skin was cleaned the cleaning solution patient taken to recovery room in stable condition and monitors in the recovery room for 20-30 minutes and discharged home in stable condition after discharge criteria met and patient will follow up with the pain clinic in 2-4 weeks
[2021-02-07] MEDS ORDERED: IV FLUID CONTINUATION 1,000 ML IV ONE (09:53)
[2021-02-07 10:25] VITALS: BP 121/76; PULSE 72
--- NOTE | 2021-02-07 13:18 | FL ---
EXAMINATION TYPE: FL guided pain mgmt statistic DATE OF EXAM: 02/07/2021 FLUOROSCOPY Fluoroscopy time of 10 seconds was used during bilateral lumbar facet blocks. 4 image/s document/s t he procedure.
== END 2021-02-07 10:27 | disposition home or self-care (01) ==
LOC: ORPAIN 08:52
PROVIDERS: ATTEND Specialist
DX: G89.29 Other chronic pain (principal); M47.816 Spondylosis without myelopathy or radiculopathy, lumbar region; R00.2 Palpitations; J45.909 Unspecified asthma, uncomplicated; Z87.891 Personal history of nicotine dependence; I12.9 Hypertensive chronic kidney disease with stage 1 through stage 4 chronic kidney disease, or unspecified chronic kidney disease; E11.22 Type 2 diabetes mellitus with diabetic chronic kidney disease; N18.9 Chronic kidney disease, unspecified; G90.4 Autonomic dysreflexia; I25.10 Atherosclerotic heart disease of native coronary artery without angina pectoris; R25.1 Tremor, unspecified; F41.9 Anxiety disorder, unspecified; F32.9 Major depressive disorder, single episode, unspecified; K76.0 Fatty (change of) liver, not elsewhere classified; K21.9 Gastro-esophageal reflux disease without esophagitis; Z79.02 Long term (current) use of antithrombotics/antiplatelets; Z79.84 Long term (current) use of oral hypoglycemic drugs; Z79.818 Long term (current) use of other agents affecting estrogen receptors and estrogen levels; Z79.890 Hormone replacement therapy; Z79.899 Other long term (current) drug therapy; Z88.5 Allergy status to narcotic agent; Z88.2 Allergy status to sulfonamides; Z88.1 Allergy status to other antibiotic agents; Z91.041 Radiographic dye allergy status; Z91.09 Other allergy status, other than to drugs and biological substances
CPT/HCPCS: 64493; 64494; J2250; J1030; J3010; J2795

== ENCOUNTER → 2021-02-10 | Outpatient (CLI) | payer OTHER ==
--- NOTE | 2021-02-10 14:08 | P.PN ---
Subjective Progress Note Date: 02/10/21 This is follow-up visit, for this patient with a history of severe and chronic neck pain and low back pain , he is diagnosed with cervical spondylosis, failed back surgery syndrome cervical area , lumbar spondylosis with facet arthropathy, and myofascial pain syndrome and cervical area . Patients currently on [place] 10/325 every 12 hours , Lyrica 100 mg 3 times a day, Zanaflex 4 mg 3 times a day. Patient denies any side effects of the medication, denies excessive drowsiness or sleepiness, denies suicidal ideation, and reports that the current pain medication is helping to control the pain ,and improve activity of daily living ,Patient denies any motor or sensory deficit , patient denies any fever or night sweats, denies any change in the bowel movements or urination Recently we have done diagnostic medial branch block lumbar area , he reported he got excellent pain relief after the block , patient here today for medication refill. Today patient complaining of severe left shoulder pain increased with any shoulder activity Physical Examinations : -Constitutiona : Cooperative , not in acute distress . -HEENT : nech : supple , no Lymphadenopathy , normal thyroid size . : eyes : no ptosis , no icterus, no photophobia . - neurologic : Cranial nerve II to XII intact , no focal neurological deffecit . -psychatric : alert , oriented X 3 , appropriate affect , intact judgment and insight . -Lymphatic : no Lymphadenopathy . - musculoskeltal : Left shoulder exam= and abduction and abduction and lateral rotation of the left shoulder Normal motor strength Lumber spine moter stegnth lower extremities ,thigh and legs 5/5 Right side , 5/5 Left side deep tendon reflexes : normal Knee Jerk , normal ankle Jerk lumber facet Loading Test =positive Right , positive Left Range of motion of the lumbar spine Flexion 30 degrees, extension 10 degrees strait leg raising test = positive at 45 degree bilaterally Fabere test= positive Right , and positive LT . 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 chronic and current use of high-risk medication (opioids) Patient denies any side effects of the current pain medication and the current treatment/medication helping the patient to do activity of daily living , Diagnoses, prognosis, treatment options, including but not limited to physical therapy, medication management, interventional therapies, and surgery, were discussed with the patient All the questions answered The narcotic consent was signed and patient agreed and understood the side e ffects and complications of opioid treatment. Patient signed the narcotic agreement, and was orally counseled, not to overuse, not to abuse, not to Divert , not tp sell pain medication, and to take it as prescribed only, Patient was counseled not to drive or operate heavy equipment while using narcotic medication, and advised not to use alcohol or any Illicit drugs while using the narcotis. understanding that lack of compliance with any of the above instructions, will likely to cause discharge from, the pain service, not to renew his narcotic prescriptions MAPS Reviwed and it was apropriate . Medication managements= patient will be given prescription refills for [place] 10/325 every 12 hours dispensed 45 with one refill, Lyrica 100 mg 3 times a day Zanaflex 4 mg 3 times a day with one refill. Procedure= patient will be scheduled to have second diagnostic medial branch block lumbar area at L3 ,L4 ,L5 bilateral Time with Patient: Less than 30 PQRS Measure Charge Sheet Measure #130: Documentation of Current Meds in Medical Chart: Patient's medications documented in chart Measure #226: Tobacco Use: Screen & Cessation Intervention: Pt screened for tobacco use AND intervention given Measure #111: Pneumonia Vaccination: Pneumococcal vaccine administered or previously received Measure #47: Advance Care Plan: Advance care planning discussed & documented, pt chose/unable to give Measure #412: Opioid Treatment Agreement: Documented signed opioid trtmnt agreemnt min once during opioid trtmnt Measure #408: Opioid Therapy Follow-up Evaluation: Patient had f/u eval minimum every 3 months during opioid therapy Measure #317: Preventitive Care & Scrn High Bld Press & F/U: Pre-hypertensive or hypertensive BP documented, pt will f/u with PCP Measure #128: Body Mass Index (BMI) Screening & Follow-up: BMI documented ABOVE normal parameters - f/u documented Measure #131: Pain Assessment & Follow-up: Pain positive & plan documented, Follow-up scheduled Measure #431: Unhealthy Alcohol Use Preventative Care & Scrn: Patient not identified as an unhealthy alcohol user Objective - Vital Signs Vital signs: Vital Signs Temp 97.3 F L 02/10/21 13:47 Pulse 80 02/10/21 13:47 Resp 16 02/10/21 13:47 BP 127/87 02/10/21 13:47 Pulse Ox 96 02/10/21 13:47 Intake & Output 02/09/21 02/10/21 02/10/21 18:59 06:59 18:59 Weight 94.347 kg
== END ==
CPT/HCPCS: 99211

== ENCOUNTER 2021-03-07 12:08 | Observation (INO) | payer OTHER ==
[2021-03-07] MEDS ORDERED: SODIUM CHLORIDE 0.9% 500 ML 500 ML IV STA (12:25)
[2021-03-07] MEDS ORDERED: NITROGLYCERIN OINT 1 INCH/GM PACKET TOPICAL STA (12:25)
[2021-03-07] MEDS ORDERED: ASPIRIN 81 MG PO STA (12:25)
--- NOTE | 2021-03-07 12:33 | ED ---
General Adult HPI - General Chief complaint: Chest Pain Stated complaint: Chest pain,SOB Time Seen by Provider: 03/07/21 12:10 Source: patient, RN notes reviewed, old records reviewed Mode of arrival: wheelchair Limitations: no limitations - History of Present Illness Initial comments: This is a 50-year-old male who presents emergency Department complaining of chest pain radiating to his left arm with shortness of breath and diaphoresis. Patient states it started 8:00 this morning. Patient states he has a history of diabetes high blood pressure and high cholesterol and a strong family history of heart pain. Patient states she quit smoking in November. Patient states the pain is considerably better than it was but it is still there slightly. Patient denies any drug use. Patient denies any alcohol use. Patient denies any abdominal pain patient denies any vomiting or diarrhea. Patient denies any recent fever chills or cough per patient denies any swelling to the legs or calf tenderness. - Related Data Home Medications Medication Instructions Recorded Confirmed DULoxetine HCL [Cymbalta] 60 mg PO HS 12/31/14 03/07/21 Tamsulosin HCl [Flomax] 0.4 mg PO HS 12/31/14 03/07/21 Levothyroxine Sodium [Synthroid] 88 mcg PO DAILY 11/17/18 03/07/21 Losartan Potassium 100 mg PO HS 11/17/18 03/07/21 Testosterone Cypionate 200 mg IM Q14D 11/17/18 03/07/21 [Depo-Testosterone] metFORMIN HCL 1,000 mg PO BID 11/17/18 03/07/21 traZODone HCL 200 mg PO HS 11/17/18 03/07/21 Cariprazine HCl [Vraylar] 1.5 mg PO DAILY 11/21/19 03/07/21 Clopidogrel [Plavix] 75 mg PO DAILY 04/02/20 03/07/21 Fenofibrate [Lofibra] 54 mg PO HS 04/30/20 03/07/21 Dicyclomine HCl 20 mg PO TID 01/06/21 03/07/21 Meclizine [Antivert] 25 mg PO BID 01/06/21 03/07/21 Metoprolol Tartrate [Lopressor] 100 mg PO BID 02/04/21 03/07/21 buPROPion XL [Wellbutrin Xl] 150 mg PO DAILY 02/04/21 03/07/21 Atorvastatin [Lipitor] 10 mg PO HS 03/07/21 03/07/21 Clotrimazole Cream [Lotrimin Cream] 1 applic TOPICAL DAILY 03/07/21 03/07/21 LORazepam [Ativan] 0.5 mg PO BID PRN 03/07/21 03/07/21 Torsemide [Demadex] 20 mg PO BID 03/07/21 03/07/21 tiZANidine [Zanaflex] 4 mg PO Q8H 03/07/21 03/07/21 Previous Rx's Medication Instructions Recorded Cyanocobalamin [Vitamin B-12] 1,000 mcg PO DAILY #30 tab 11/22/20 Folic Acid 1 mg PO DAILY #30 tab 11/22/20 HYDROcodone/APAP 10-325MG [[place] 1 tab PO BID PRN #45 tab 02/10/21 10-325] Pregabalin [Lyrica] 100 mg PO TID 30 Days #90 cap 02/10/21 Allergies Allergy/AdvReac Type Severity Reaction Status Date / Time adhesive tape Allergy Rash/Hives Verified 03/07/21 13:19 cefaclor [From Ceclor] Allergy Rash/Hives Verified 03/07/21 13:19 Iodinated Contrast Media Allergy Rash/Hives,throat Verified 03/07/21 13:19 [Iodinated Contrast Media - swelling IV Dye] propoxyphene napsylate Allergy Rash/Hives Verified 03/07/21 13:19 [From Darvocet-N 100] Sulfa (Sulfonamide Allergy Dyspnea Verified 03/07/21 13:19 Antibiotics) sulfamethoxazole Allergy Rapid Verified 03/07/21 13:19 [From Bactrim] Heart Rate trimethoprim [From Bactrim] Allergy Rapid Verified 03/07/21 13:19 Heart Rate Review of Systems ROS Statement: Those systems with pertinent positive or pertinent negative responses have been documented in the HPI. ROS Other: All systems not noted in ROS Statement are negative. Past Medical History Past Medical History: Asthma, Cancer, Chest Pain / Angina, Heart Failure, CVA/TIA, Diabetes Mellitus, GERD/Reflux, Hypertension, Liver Disease, Musculoskeletal Disorder, Renal Disease, Skin Disorder Additional Past Medical History / Comment(s): TMJ, sinus problems, eczema, kidney stones, diverticulitis, back pain, physical limitations. NT Bilat hands, BLE. Uses cane. Skin cancer. DX w/ hyperflexia, sl cataracts." CVA 11/2018, WBC level elev - seen Dr. Luna. Ankles, feet, legs, face swollen all the time. PVD. Kidney dx stage 3. Fatty liver. Torn meniscus lt knee. History of Any Multi-Drug Resistant Organisms: None Reported Past Surgical History: Adenoidectomy, Hernia Repair, Orthopedic Surgery, Tonsillectomy Additional Past Surgical History / Comment(s): Neck fusion, colonoscopy, left knee arthroscopy, bilat carpal tunnel surgery, PAIN CLINIC INJECTIONS, BILAT CUBITAL SX ON ELBOWS, EGD, Past Anesthesia/Blood Transfusion Reactions: No Reported Reaction Past Psychological History: Anxiety, Depression Smoking Status: Former smoker Past Alcohol Use History: None Reported Past Drug Use History: None Reported - Past Family History Mother Family Medical History: Cancer Father Family Medical History: Cancer General Exam - General Exam Comments Initial Comments: GENERAL: Patient is well-developed and well-nourished. Patient is nontoxic and well-h ydrated and is in mild distress. ENT: Neck is soft and supple. No significant lymphadenopathy is noted. Oropharynx is clear. Moist mucous membranes. Neck has full range of motion without eliciting any pain. EYES: The sclera were anicteric and conjunctiva were pink and moist. Extraocular move ments were intact and pupils were equal round and reactive to light. Eyelids were unremarkable. PULMONARY: Unlabored respirations. Good breath sounds bilaterally. No audible rales rhonchi or wheezing was noted. CARDIOVASCULAR: There is a regular rate and rhythm without any murmurs gallops or rubs. ABDOMEN: Soft and nontender with normal bowel sounds. SKIN: Skin is clear with no lesions or rashes and otherwise unremarkable. NEUROLOGIC: Patient is alert and oriented x3. Cranial nerves II through XII are grossly intact. Motor and sensory are also intact. Normal speech, volume and content. Symmetrical smile. MUSCULOSKELETAL: Normal extremities with adequate strength and full range of motion. LYMPHATICS: No significant lymphadenopathy is noted PSYCHIATRIC: Normal psychiatric evaluation. Limitations: no limitations Course Vital Signs 03/07/21 03/07/21 12:08 12:51 Temperature 97.9 F Pulse Rate 105 H 96 Respiratory 20 18 Rate Blood Pressure 117/83 O2 Sat by Pulse 96 99 Oximetry Medical Decision Making - Medical Decision Making EKG shows normal sinus rhythm at 99 bpm MN interval is on a 36 QRS is 84 Q-T intervals 364 QTC is 467. Patient's EKG shows no ST segment elevation or depression Chest x-ray shows no acute abnormality. Patient's chest pain was very minimal after I reevaluated him. I spoke with Dr. Sommer agreed to admit the patient admitted the patient wrote admitting orders I consult cardiology. I continued heparin and aspirin and Nitropaste on the floor. - Lab Data Result diagrams: 03/07/21 12:51 03/07/21 12:51 Lab Results 03/07/21 03/07/21 03/07/21 Range/Units 12:51 12:51 12:51 WBC 11.4 H (3.8-10.6) k/uL RBC 4.78 (4.30-5.90) m/uL Hgb 15.8 (13.0-17.5) gm/dL Hct 45.6 (39.0-53.0) % MCV 95.4 (80.0-100.0) fL MCH 33.1 (25.0-35.0) pg MCHC 34.7 (31.0-37.0) g/dL RDW 12.9 (11.5-15.5) % Plt Count 276 (150-450) k/uL MPV 9.1 Neutrophils % 71 % Lymphocytes % 19 % Monocytes % 5 % Eosinophils % 2 % Basophils % 1 % Neutrophils # 8.1 H (1.3-7.7) k/uL Lymphocytes # 2.1 (1.0-4.8) k/uL Monocytes # 0.6 (0-1.0) k/uL Eosinophils # 0.2 (0-0.7) k/uL Basophils # 0.1 (0-0.2) k/uL PT 10.9 (9.0-12.0) sec INR 1.0 (<1.2) APTT 25.1 (22.0-30.0) sec Sodium 134 L (137-145) mmol/L Potassium 4.2 (3.5-5.1) mmol/L Chloride 88 L (98-107) mmol/L Carbon Dioxide 32 H (22-30) mmol/L Anion Gap 14 mmol/L BUN 18 (9-20) mg/dL Creatinine 1.53 H (0.66-1.25) mg/dL Est GFR (CKD-EPI)AfAm 60 (>60 ml/min/1.73 sqM) Est GFR (CKD-EPI)NonAf 52 (>60 ml/min/1.73 sqM) Glucose 225 H (74-99) mg/dL Calcium 10.2 (8.4-10.2) mg/dL Magnesium 1.0 L (1.6-2.3) mg/dL Total Bilirubin 0.6 (0.2-1.3) mg/dL AST 42 (17-59) U/L ALT 38 (4-49) U/L Alkaline Phosphatase 45 (38-126) U/L Troponin I (0.000-0.034) ng/mL Total Protein 7.8 (6.3-8.2) g/dL Albumin 4.9 (3.5-5.0) g/dL Coronavirus (PCR) (Not Detectd) 03/07/21 03/07/21 Range/Units 12:51 12:51 WBC (3.8-10.6) k/uL RBC (4.30-5.90) m/uL Hgb (13.0-17.5) gm/dL Hct (39.0-53.0) % MCV (80.0-100.0) fL MCH (25.0-35.0) pg MCHC (31.0-37.0) g/dL RDW (11.5-15.5) % Plt Count (150-450) k/uL MPV Neutrophils % % Lymphocytes % % Monocytes % % Eosinophils % % Basophils % % Neutrophils # (1.3-7.7) k/uL Lymphocytes # (1.0-4.8) k/uL Monocytes # (0-1.0) k/uL Eosinophils # (0-0.7) k/uL Basophils # (0-0.2) k/uL PT (9.0-12.0) sec INR (<1.2) APTT (22.0-30.0) sec Sodium (137-145) mmol/L Potassium (3.5-5.1) mmol/L Chloride (98-107) mmol/L Carbon Dioxide (22-30) mmol/L Anion Gap mmol/L BUN (9-20) mg/dL Creatinine (0.66-1.25) mg/dL Est GFR (CKD-EPI)AfAm (>60 ml/min/1.73 sqM) Est GFR (CKD-EPI)NonAf (>60 ml/min/1.73 sqM) Glucose (74-99) mg/dL Calcium (8.4-10.2) mg/dL Magnesium (1.6-2.3) mg/dL Total Bilirubin (0.2-1.3) mg/dL AST (17-59) U/L ALT (4-49) U/L Alkaline Phosphatase (38-126) U/L Troponin I 0.012 (0.000-0.034) ng/mL Total Protein (6.3-8.2) g/dL Albumin (3.5-5.0) g/dL Coronavirus (PCR) Not Detected (Not Detectd) Critical Care Time Critical Care Time: Yes Total Critical Care Time: 35 Disposition Clinical Impression: Unstable angina pectoris Disposition: ADMITTED IP TO THIS HOSP Referrals: Tristin Phillips DO [Primary Care Provider] - 1-2 days Time of Disposition: 13:59
[2021-03-07 13:17] LABS: Basophils # (A) 0.1 k/uL (0-0.2); Basophils % (A) 1 %; Eosinophils # (A) 0.2 k/uL (0-0.7); Eosinophils % (A) 2 %; HCT 45.6 % (39.0-53.0); HGB 15.8 gm/dL (13.0-17.5); Lymphocytes # (A) 2.1 k/uL (1.0-4.8); Lymphocytes % (A) 19 %; MCH 33.1 pg (25.0-35.0); MCHC 34.7 g/dL (31.0-37.0); MCV 95.4 fL (80.0-100.0); Mean Platelet Volume 9.1; Monocytes # (A) 0.6 k/uL (0-1.0); Monocytes % (A) 5 %; Neutrophils # (A) 8.1 k/uL (1.3-7.7); Neutrophils % (A) 71 %; Platelet Count 276 k/uL (150-450); RBC 4.78 m/uL (4.30-5.90); RDW 12.9 % (11.5-15.5); WBC 11.4 k/uL (3.8-10.6)
--- NOTE | 2021-03-07 13:22 | XR ---
EXAMINATION TYPE: XR chest 2V DATE OF EXAM: 03/07/2021 COMPARISON: 11/20/2020 INDICATION: Chest pain short of breath TECHNIQUE: Frontal and lateral views of the chest were obtained. FINDINGS: The heart size is normal. The pulmonary vasculature is normal. The lungs are clear. IMPRESSION: 1. No acute pulmonary process.
[2021-03-07 13:32] LABS: Albumin 4.9 g/dL (3.5-5.0); Calcium 10.2 mg/dL (8.4-10.2); Total Bilirubin 0.6 mg/dL (0.2-1.3); Total Protein 7.8 g/dL (6.3-8.2)
[2021-03-07 13:44] LABS: Partial Thromboplastin Time 25.1 sec (22.0-30.0); Prothrombin Time 10.9 sec (9.0-12.0)
[2021-03-07 13:45] LABS: Potassium 4.2 mmol/L (3.5-5.1)
[2021-03-07] MEDS ORDERED: HEPARIN SODIUM 1,000 UN/ML (10ML VL) IV STA (13:58)
[2021-03-07] MEDS ORDERED: NITROGLYCERIN SL TABS 0.4 MG TAB SUBLINGUAL PRN (14:00)
[2021-03-07] MEDS: HEPARIN SOD,PORK IN 0.45% NACL 25,000 UNIT in 0.45% NACL 1 250ML.BAG IV SCH (14:47)
--- NOTE | 2021-03-07 16:47 | P.HPIM ---
History of Present Illness 50-year-old male came in with compensative chest pain patient gives me typical symptoms of chest pain with on the left side of the chest radiating to the left arm tingling numbness along with the shortness of breath. Patient had a cardiac catheterization about a week ago which he did not show any significant episodic occlusive disease patient apparently had clean coronaries at that time. Patient was subsequently discharged patient does have history of atrial fibrillation patient does have risk factors including diabetes with us hypertension hyperlipidemia. Patient repeatedly keeps asking for Dilaudid. Patient has back issues for which patient is on Percocet. Does have history of obstructive sleep apnea. Patient is morbidly obese. Patient does have history of mitral valve prolapse in the past history of pulmonary embolism presently not on any anticoagulation. Review of Systems REVIEW OF SYSTEMS: CONSTITUTIONAL: No fever, no malaise, no fatigue. HEENT: No recent visual problems or hearing problems. Denied any sore throat. CARDIOVASCULAR: No orthopnea, PND, no palpitations, no syncope. PULMONARY: No shortness of breath, no cough, no hemoptysis. GASTROINTESTINAL: No diarrhea, no nausea, no vomiting, no abdominal pain. NEUROLOGICAL: No headaches, no weakness, no numbness. HEMATOLOGICAL: Denies any bleeding or petechiae. GENITOURINARY: Denies any burning micturition, frequency, or urgency. MUSCULOSKELETAL/RHEUMATOLOGICAL: Denies any joint pain, swelling, or any muscle pain. ENDOCRINE: Denies any polyuria or polydipsia. The rest of the 14-point review of systems is negative. Past Medical History Past Medical History: Asthma, Cancer, Chest Pain / Angina, Heart Failure, CVA/TIA, Diabetes Mellitus, GERD/Reflux, Hypertension, Liver Disease, Musculoskeletal Disorder, Renal Disease, Skin Disorder Additional Past Medical History / Comment(s): TMJ, sinus problems, eczema, kidney stones, diverticulitis, back pain, physical limitations. NT Bilat hands, BLE. Uses cane. Skin cancer. DX w/ hyperflexia, sl cataracts." CVA 11/2018, WBC level elev - seen Dr. Luna. Ankles, feet, legs, face swollen all the time. PVD. Kidney dx stage 3. Fatty liver. Torn meniscus lt knee. History of Any Multi-Drug Resistant Organisms: None Reported Past Surgical History: Adenoidectomy, Hernia Repair, Orthopedic Surgery, Tonsillectomy Additional Past Surgical History / Comment(s): Neck fusion, colonoscopy, left knee arthroscopy, bilat carpal tunnel surgery, PAIN CLINIC INJECTIONS, BILAT CUBITAL SX ON ELBOWS, EGD, Past Anesthesia/Blood Transfusion Reactions: No Reported Reaction Past Psychological History: Anxiety, Depression Smoking Status: Former smoker Past Alcohol Use History: None Reported Past Drug Use History: None Reported - Past Family History Mother Family Medical History: Cancer Father Family Medical History: Cancer Medications and Allergies Home Medications Medication Instructions Recorded Confirmed Type DULoxetine HCL [Cymbalta] 60 mg PO HS 12/31/14 03/07/21 History Tamsulosin HCl [Flomax] 0.4 mg PO HS 12/31/14 03/07/21 History Levothyroxine Sodium [Synthroid] 88 mcg PO DAILY 11/17/18 03/07/21 History Losartan Potassium 100 mg PO HS 11/17/18 03/07/21 History Testosterone Cypionate 200 mg IM Q14D 11/17/18 03/07/21 History [Depo-Testosterone] metFORMIN HCL 1,000 mg PO BID 11/17/18 03/07/21 History traZODone HCL 200 mg PO HS 11/17/18 03/07/21 History Cariprazine HCl [Vraylar] 1.5 mg PO DAILY 11/21/19 03/07/21 History Clopidogrel [Plavix] 75 mg PO DAILY 04/02/20 03/07/21 History Fenofibrate [Lofibra] 54 mg PO HS 04/30/20 03/07/21 History Cyanocobalamin [Vitamin B-12] 1,000 mcg PO DAILY #30 tab 11/22/20 03/07/21 Rx Folic Acid 1 mg PO DAILY #30 tab 11/22/20 03/07/21 Rx Dicyclomine HCl 20 mg PO TID 01/06/21 03/07/21 History Meclizine [Antivert] 25 mg PO BID 01/06/21 03/07/21 History Metoprolol Tartrate [Lopressor] 100 mg PO BID 02/04/21 03/07/21 History buPROPion XL [Wellbutrin Xl] 150 mg PO DAILY 02/04/21 03/07/21 History HYDROcodone/APAP 10-325MG [[place] 1 tab PO BID PRN #45 tab 02/10/21 03/07/21 Rx 10-325] Pregabalin [Lyrica] 100 mg PO TID 30 Days #90 cap 02/10/21 03/07/21 Rx Atorvastatin [Lipitor] 10 mg PO HS 03/07/21 03/07/21 History Clotrimazole Cream [Lotrimin Cream] 1 applic TOPICAL DAILY 03/07/21 03/07/21 History LORazepam [Ativan] 0.5 mg PO BID PRN 03/07/21 03/07/21 History Torsemide [Demadex] 20 mg PO BID 03/07/21 03/07/21 History tiZANidine [Zanaflex] 4 mg PO Q8H 03/07/21 03/07/21 History Allergies Allergy/AdvReac Type Severity Reaction Status Date / Time adhesive tape Allergy Rash/Hives Verified 03/07/21 13:19 cefaclor [From Ceclor] Allergy Rash/Hives Verified 03/07/21 13:19 Iodinated Contrast Media Allergy Rash/Hives,throat Verified 03/07/21 13:19 [Iodinated Contrast Media - swelling IV Dye] propoxyphene napsylate Allergy Rash/Hives Verified 03/07/21 13:19 [From Darvocet-N 100] Sulfa (Sulfonamide Allergy Dyspnea Verified 03/07/21 13:19 Antibiotics) sulfamethoxazole Allergy Rapid Verified 03/07/21 13:19 [From Bactrim] Heart Rate trimethoprim [From Bactrim] Allergy Rapid Verified 03/07/21 13:19 Heart Rate Physical Exam Vitals: Vital Signs Temp Pulse Resp BP Pulse Ox 03/07/21 16:35 98.4 F 96 20 108/63 95 03/07/21 14:51 104 H 20 101/63 94 L 03/07/21 14:01 99 18 111/81 93 L 03/07/21 12:51 96 18 117/83 99 03/07/21 12:08 97.9 F 105 H 20 96 Intake and Output 03/07/21 03/07/21 03/07/21 06:59 14:59 22:59 Other: Weight 89.358 kg PHYSICAL EXAMINATION: GENERAL: The patient is alert and oriented x3, not in any acute distress. obese HEENT: Pupils are round and equally reacting to light. EOMI. No scleral icterus. No conjunctival pallor. Normocephalic, atraumatic. No pharyngeal erythema. No thyromegaly. CARDIOVASCULAR: S1 and S2 present. No murmurs, rubs, or gallops. PULMONARY: Chest is clear to auscultation, no wheezing or crackles. ABDOMEN: Soft, nontender, nondistended, normoactive bowel sounds. No palpable organomegaly. MUSCULOSKELETAL: No joint swelling or deformity. EXTREMITIES: No cyanosis, clubbing, or pedal edema. NEUROLOGICAL: Gross neurological examination did not reveal any focal deficits. SKIN: No rashes. Results CBC & Chem 7: 03/07/21 12:51 03/07/21 12:51 Labs: Abnormal Lab Results - Last 24 Hours (Table) 03/07/21 03/07/21 Range/Units 12:51 12:51 WBC 11.4 H (3.8-10.6) k/uL Neutrophils # 8.1 H (1.3-7.7) k/uL Sodium 134 L (137-145) mmol/L Chloride 88 L (98-107) mmol/L Carbon Dioxide 32 H (22-30) mmol/L Creatinine 1.53 H (0.66-1.25) mg/dL Glucose 225 H (74-99) mg/dL Magnesium 1.0 L (1.6-2.3) mg/dL Assessment and Plan Plan: 1 chest pain: Patient does have typical features of chest pain although patient had a recent cardiac catheterization which did not show any symptoms and abnormalities were do not believe his chest pain is cardiac in origin but patient will be monitored and will be evaluated by cardiology. -Chronic back pain for which patient will be resumed on his home medications avoid any intravenous opiates. -Hypertension -History of sinus tachycardia for which patient is on metoprolol which will be continued -Obesity -Obstructive sleep apnea -Hyperlipidemia -Type 2 diabetes mellitus
[2021-03-07] MEDS ORDERED: HYDROcodone/APAP 10-325MG 1 EACH TAB PO PRN (16:54)
[2021-03-07] MEDS ORDERED: LORazepam 0.5 MG TAB PO PRN (16:54)
[2021-03-07] MEDS ORDERED: DICYCLOMINE 20 MG TAB PO PRN (16:54)
--- NOTE | 2021-03-07 17:00 | P.HPIM ---
History of Present Illness 50-year-old male who presents emergency Department complaining of chest pain radiating to his left arm with shortness of breath and diaphoresis. Patient states it started 8:00 this morning. Patient states he has a history of diabe loni high blood pressure and high cholesterol and a strong family history of coronary artery disease. Patient states she quit smoking in November. Patient's pain is pressure like sensation mild to moderate severity nonexertional nonpleuritic not associated with food. Patient denies any abdominal pain patient denies any vomiting or diarrhea. Patient denies any recent fever chills or cough per patient denies any swelling to the legs or calf tenderness. Patient had a first set of troponin which was negative and EKG showed sinus rhythm without any acute ST-T wave changes. Patient had a recent stress test in month of November which is a Lexiscan stress test which showed some inducible ischemia in [place] smaller area in the posterior lateral area. This was believed to be insignificant at that time and was discharged home. Review of Systems REVIEW OF SYSTEMS: CONSTITUTIONAL: No fever, no malaise, no fatigue. HEENT: No recent visual problems or hearing problems. Denied any sore throat. CARDIOVASCULAR: No orthopnea, PND, no palpitations, no syncope. PULMONARY: No shortness of breath, no cough, no hemoptysis. GASTROINTESTINAL: No diarrhea, no nausea, no vomiting, no abdominal pain. NEUROLOGICAL: No headaches, no weakness, no numbness. HEMATOLOGICAL: Denies any bleeding or petechiae. GENITOURINARY: Denies any burning micturition, frequency, or urgency. MUSCULOSKELETAL/RHEUMATOLOGICAL: Denies any joint pain, swelling, or any muscle pain. ENDOCRINE: Denies any polyuria or polydipsia. The rest of the 14-point review of systems is negative. Past Medical History Past Medical History: Asthma, Cancer, Chest Pain / Angina, Heart Failure, CVA/TIA, Diabetes Mellitus, GERD/Reflux, Hypertension, Liver Disease, Musculoskeletal Disorder, Renal Disease, Skin Disorder Additional Past Medical History / Comment(s): TMJ, sinus problems, eczema, kidney stones, diverticulitis, back pain, physical limitations. NT Bilat hands, BLE. Uses cane. Skin cancer. DX w/ hyperflexia, sl cataracts." CVA 11/2018, WBC level elev - seen Dr. Luna. Ankles, feet, legs, face swollen all the time. PVD. Kidney dx stage 3. Fatty liver. Torn meniscus lt knee. History of Any Multi-Drug Resistant Organisms: None Reported Past Surgical History: Adenoidectomy, Hernia Repair, Orthopedic Surgery, Tonsillectomy Additional Past Surgical History / Comment(s): Neck fusion, colonoscopy, left knee arthroscopy, bilat carpal tunnel surgery, PAIN CLINIC INJECTIONS, BILAT CUBITAL SX ON ELBOWS, EGD, Past Anesthesia/Blood Transfusion Reactions: No Reported Reaction Past Psychological History: Anxiety, Depression Smoking Status: Former smoker Past Alcohol Use History: None Reported Past Drug Use History: None Reported - Past Family History Mother Family Medical History: Cancer Father Family Medical History: Cancer Medications and Allergies Home Medications Medication Instructions Recorded Confirmed Type DULoxetine HCL [Cymbalta] 60 mg PO HS 12/31/14 03/07/21 History Tamsulosin HCl [Flomax] 0.4 mg PO HS 12/31/14 03/07/21 History Levothyroxine Sodium [Synthroid] 88 mcg PO DAILY 11/17/18 03/07/21 History Losartan Potassium 100 mg PO HS 11/17/18 03/07/21 History Testosterone Cypionate 200 mg IM Q14D 11/17/18 03/07/21 History [Depo-Testosterone] metFORMIN HCL 1,000 mg PO BID 11/17/18 03/07/21 History traZODone HCL 200 mg PO HS 11/17/18 03/07/21 History Cariprazine HCl [Vraylar] 1.5 mg PO DAILY 11/21/19 03/07/21 History Clopidogrel [Plavix] 75 mg PO DAILY 04/02/20 03/07/21 History Fenofibrate [Lofibra] 54 mg PO HS 04/30/20 03/07/21 History Cyanocobalamin [Vitamin B-12] 1,000 mcg PO DAILY #30 tab 11/22/20 03/07/21 Rx Folic Acid 1 mg PO DAILY #30 tab 11/22/20 03/07/21 Rx Dicyclomine HCl 20 mg PO TID 01/06/21 03/07/21 History Meclizine [Antivert] 25 mg PO BID 01/06/21 03/07/21 History Metoprolol Tartrate [Lopressor] 100 mg PO BID 02/04/21 03/07/21 History buPROPion XL [Wellbutrin Xl] 150 mg PO DAILY 02/04/21 03/07/21 History HYDROcodone/APAP 10-325MG [[place] 1 tab PO BID PRN #45 tab 02/10/21 03/07/21 Rx 10-325] Pregabalin [Lyrica] 100 mg PO TID 30 Days #90 cap 02/10/21 03/07/21 Rx Atorvastatin [Lipitor] 10 mg PO HS 03/07/21 03/07/21 History Clotrimazole Cream [Lotrimin Cream] 1 applic TOPICAL DAILY 03/07/21 03/07/21 History LORazepam [Ativan] 0.5 mg PO BID PRN 03/07/21 03/07/21 History Torsemide [Demadex] 20 mg PO BID 03/07/21 03/07/21 History tiZANidine [Zanaflex] 4 mg PO Q8H 03/07/21 03/07/21 History Allergies Allergy/AdvReac Type Severity Reaction Status Date / Time adhesive tape Allergy Rash/Hives Verified 03/07/21 13:19 cefaclor [From Ceclor] Allergy Rash/Hives Verified 03/07/21 13:19 Iodinated Contrast Media Allergy Rash/Hives,throat Verified 03/07/21 13:19 [Iodinated Contrast Media - swelling IV Dye] propoxyphene napsylate Allergy Rash/Hives Verified 03/07/21 13:19 [From Darvocet-N 100] Sulfa (Sulfonamide Allergy Dyspnea Verified 03/07/21 13:19 Antibiotics) sulfamethoxazole Allergy Rapid Verified 03/07/21 13:19 [From Bactrim] Heart Rate trimethoprim [From Bactrim] Allergy Rapid Verified 03/07/21 13:19 Heart Rate Physical Exam Vitals: Vital Signs Temp Pulse Resp BP Pulse Ox 03/07/21 16:35 98.4 F 96 20 108/63 95 03/07/21 14:51 104 H 20 101/63 94 L 03/07/21 14:01 99 18 111/81 93 L 03/07/21 12:51 96 18 117/83 99 03/07/21 12:08 97.9 F 105 H 20 96 Intake and Output 05/07/21 05/07/21 05/07/21 06:59 14:59 22:59 Other: Weight 89.358 kg PHYSICAL EXAMINATION: GENERAL: The patient is alert and oriented x3, not in any acute distress. Well developed, well nourished. HEENT: Pupils are round and equally reacting to light. EOMI. No scleral icterus. No conjunctival pallor. Normocephalic, atraumatic. No pharyngeal erythema. No thyromegaly. CARDIOVASCULAR: S1 and S2 present. No murmurs, rubs, or gallops. PULMONARY: Chest is clear to auscultation, no wheezing or crackles. ABDOMEN: Soft, nontender, nondistended, normoactive bowel sounds. No palpable organomegaly. MUSCULOSKELETAL: No joint swelling or deformity. EXTREMITIES: No cyanosis, clubbing, or pedal edema. NEUROLOGICAL: Gross neurological examination did not reveal any focal deficits. SKIN: No rashes. Results CBC & Chem 7: 03/07/21 12:51 03/07/21 12:51 Labs: Abnormal Lab Results - Last 24 Hours (Table) 03/07/21 03/07/21 Range/Units 12:51 12:51 WBC 11.4 H (3.8-10.6) k/uL Neutrophils # 8.1 H (1.3-7.7) k/uL Sodium 134 L (137-145) mmol/L Chloride 88 L (98-107) mmol/L Carbon Dioxide 32 H (22-30) mmol/L Creatinine 1.53 H (0.66-1.25) mg/dL Glucose 225 H (74-99) mg/dL Magnesium 1.0 L (1.6-2.3) mg/dL Assessment and Plan Plan: - chest pain: We will rule out a concurrent syndromes. decision regarding card iac catheterization as per cardiology and patient. - mild hyponatremia: Secondary to Demadex. Patient the has history of chronic kidney disease stage III and baseline creatinine of 1.5 because of chronic kidney disease and pedal edema patient is on Demadex which are started by nephrology. -Leukocytosis which is reactive -Type 2 diabetes mellitus with diabetic nephropathy -To be without any acute exacerbation -Type 2 diabetes mellitus -Gastroesophageal reflux disease -Hypertension: Losartan will be held temporally as his blood pressures are low normal patient probably will only need 50 mg of losartan losartan was held during his last hospitalization with because of acute renal failure. It appears this was started back again as an outpatient. -Depression
[2021-03-07 17:16] LABS: Glucose,Whole Blood 126 mg/dL (75-99)
[2021-03-07] MEDS: tiZANidine 4 MG TAB PO SCH (18:01)
[2021-03-07] MEDS: NITROGLYCERIN OINT 1 INCH/GM PACKET TOPICAL SCH (18:10)
[2021-03-07] MEDS: ATORVASTATIN 10 MG TAB PO SCH (21:38)
[2021-03-07] MEDS: PREGABALIN 75 MG CAP PO SCH (21:38)
[2021-03-07] MEDS: DULoxetine HCL 60 MG CAPSULE.DR PO SCH (21:38)
[2021-03-07] MEDS: METOPROLOL TARTRATE 50 MG TAB PO SCH (21:38)
[2021-03-07] MEDS: traZODone HCL 100 MG TAB PO SCH (21:38)
[2021-03-07] MEDS: MECLIZINE 25 MG TAB PO SCH (21:38)
[2021-03-07] MEDS: TAMSULOSIN 0.4 MG CAP.ER.24H PO SCH (21:38)
[2021-03-07] MEDS: FENOFIBRATE 54 MG TAB PO SCH (21:39)
[2021-03-07] MEDS ORDERED: ACETAMINOPHEN TAB 325 MG TAB PO PRN (22:29)
[2021-03-08] MEDS: tiZANidine 4 MG TAB PO SCH ×4 (00:02→23:47)
[2021-03-08] MEDS: NITROGLYCERIN OINT 1 INCH/GM PACKET TOPICAL SCH ×5 (00:03→23:57)
[2021-03-08] MEDS: HEPARIN SOD,PORK IN 0.45% NACL 25,000 UNIT in 0.45% NACL 1 250ML.BAG IV SCH (00:04)
[2021-03-08] MEDS: LEVOTHYROXINE 88 MCG TAB PO SCH (05:40)
[2021-03-08 07:40] LABS: Glucose,Whole Blood 185 mg/dL (75-99)
[2021-03-08] MEDS ORDERED: ASPIRIN 325 MG TAB PO SCH (09:00)
[2021-03-08] MEDS: PREGABALIN 75 MG CAP PO SCH ×2 (09:18→21:19)
[2021-03-08] MEDS: CYANOCOBALAMIN 500 MCG TAB PO SCH (09:18)
[2021-03-08] MEDS: CLOTRIMAZOLE 1% CREAM 30 GM TUBE TOPICAL SCH (09:19)
[2021-03-08] MEDS: MECLIZINE 25 MG TAB PO SCH ×2 (09:19→21:19)
[2021-03-08] MEDS: buPROPion XL 150 MG TAB.ER.24H PO SCH (09:19)
[2021-03-08] MEDS: METOPROLOL TARTRATE 50 MG TAB PO SCH (09:19)
[2021-03-08] MEDS: NON FORMULARY DRUG (Cariprazine Hcl [Vraylar] 1.5 MG Capsule) PO SCH (09:21)
[2021-03-08] MEDS: FOLIC ACID 1 MG TAB PO SCH (09:25)
[2021-03-08 09:38] LABS: Chol/HDL Ratio 7.06
[2021-03-08 10:56] LABS: African American GFR (CKD) 65 (>60 ml/min/1.73 sqM); Anion Gap 8 mmol/L; Blood Urea Nitrogen 17 mg/dL (9-20); Calcium 9.5 mg/dL (8.4-10.2); Carbon Dioxide 36 mmol/L (22-30); Chloride 93 mmol/L (98-107); Glucose 186 mg/dL (74-99); Non-African American GFR(CKD) 56 (>60 ml/min/1.73 sqM); Potassium 3.4 mmol/L (3.5-5.1); Sodium 137 mmol/L (137-145)
[2021-03-08 11:44] LABS: Glucose,Whole Blood 220 mg/dL (75-99)
[2021-03-08] MEDS: CLOPIDOGREL 75 MG TAB PO SCH (13:34)
--- NOTE | 2021-03-08 14:59 | P.PN ---
Subjective 50-year-old male who presents emergency Department complaining of chest pain radiating to his left arm with shortness of breath and diaphoresis. Patient states it started 8:00 this morning. Patient states he has a history of diabetes high blood pressure and high cholesterol and a strong family history of coronary artery disease. Patient states she quit smoking in November. Patient's pain is pressure like sensation mild to moderate severity nonexertional nonpleuritic not associated with food. Patient denies any abdominal pain patient denies any vomiting or diarrhea. Patient denies any recent fever chills or cough per patient denies any swelling to the legs or calf tenderness. Patient had a first set of troponin which was negative and EKG showed sinus rhythm without any acute ST-T wave changes. Patient had a recent stress test in month of November which is a Lexiscan stress test which showed some inducible ischemia in [place] smaller area in the posterior lateral area. This was believed to be insignificant at that time and was discharged home. 03/08/2021 Patient is feeling better but still complaining of on and off chest pain and the cardiology evaluated the patient the recommending stress test on Wednesday. Constitutional: Denied any fatigue denied any fever. Cardio vascular: As mentioned in the interval history Gastrointestinal denied any nausea vomiting Pulmonary: Denied any shortness of breath cough Neurologic denied any new focal deficits All inpatient medications were reviewed and appropriate changes in these medications as dictated in the interval history and assessment and plan. Objective - Vital Signs Vital signs: Vital Signs Temp 97.4 F L 03/08/21 07:00 Pulse 90 03/08/21 07:00 Resp 20 03/08/21 08:00 BP 127/79 03/08/21 07:00 Pulse Ox 91 L 03/08/21 07:00 Intake & Output 03/07/21 03/08/21 03/08/21 18:59 06:59 18:59 Intake Total 240 572.908 60.326 Balance 240 572.908 60.326 Weight 89.358 kg Intake: Intake, IV Titration 92.908 60.326 Amount Heparin Sod,Pork in 0.45% 92.908 60.326 NaCl 25,000 unit In 0.45 % NaCl 1 250ml.bag @ 11.2 UNITS/KG/HR 10.008 mls/ hr IV .Q24H [facility] Rx#: [id number] Oral 240 480 Other: Voiding Method Toilet Toilet Toilet # Voids 1 - Exam PHYSICAL EXAMINATION: GENERAL: The patient is alert and oriented x3, not in any acute distress. Well developed, well nourished. HEENT: Pupils are round and equally reacting to light. EOMI. No scleral icterus. No conjunctival pallor. Normocephalic, atraumatic. No pharyngeal erythema. No thyromegaly. CARDIOVASCULAR: S1 and S2 present. No murmurs, rubs, or gallops. PULMONARY: Chest is clear to auscultation, no wheezing or crackles. ABDOMEN: Soft, nontender, nondistended, normoactive bowel sounds. No palpable organomegaly. MUSCULOSKELETAL: No joint swelling or deformity. EXTREMITIES: No cyanosis, clubbing, or pedal edema. NEUROLOGICAL: Gross neurological examination did not reveal any focal deficits. SKIN: No rashes. - Labs CBC & Chem 7: 03/07/21 12:51 03/08/21 06:03 Labs: Abnormal Lab Results - Last 24 Hours (Table) 03/07/21 03/07/21 03/08/21 Range/Units 17:15 20:58 06:03 APTT >200.0 H* (22.0-30.0) sec Potassium (3.5-5.1) mmol/L Chloride (98-107) mmol/L Carbon Dioxide (22-30) mmol/L Creatinine (0.66-1.25) mg/dL Glucose (74-99) mg/dL POC Glucose (mg/dL) 126 H (75-99) mg/dL Triglycerides 305.0 H (0.0-149.0) mg/dL VLDL Cholesterol, Calc 61.00 H (5.00-40.00) mg/dL HDL Cholesterol 17.0 L (40.0-60.0) mg/dL 03/08/21 03/08/21 03/08/21 Range/Units 06:03 07:38 11:38 APTT (22.0-30.0) sec Potassium 3.4 L (3.5-5.1) mmol/L Chloride 93 L (98-107) mmol/L Carbon Dioxide 36 H (22-30) mmol/L Creatinine 1.44 H (0.66-1.25) mg/dL Glucose 186 H (74-99) mg/dL POC Glucose (mg/dL) 185 H 220 H (75-99) mg/dL Triglycerides (0.0-149.0) mg/dL VLDL Cholesterol, Calc (5.00-40.00) mg/dL HDL Cholesterol (40.0-60.0) mg/dL Assessment and Plan Plan: - chest pain: We will rule out acute coronary syndromes. Patient will undergo stress test on Wednesday was evaluated by cardiology. decision regarding cardiac catheterization as per cardiology and patient. - mild hyponatremia: Secondary to Demadex. Improved serum sodium will discontinue IV fluids. -Leukocytosis which is reactive -Type 2 diabetes mellitus with diabetic nephropathy controlled elevated blood sugars -To be without any acute exacerbation -Type 2 diabetes mellitus -Gastroesophageal reflux disease -Hypertension: Losartan will be held temporally as his blood pressures are low normal patient probably will only need 50 mg of losartan losartan was held during his last hospitalization with because of acute renal failure. It appears this was started back again as an outpatient. -Depression
[2021-03-08 17:09] LABS: Glucose,Whole Blood 182 mg/dL (75-99)
--- NOTE | 2021-03-08 17:36 | CONS ---
CONSULTATION HISTORY OF PRESENT ILLNESS: Antonio Fontana is a 50-year-old gentleman with multiple comorbid conditions that include type 2 diabetes mellitus, he is on oral agents, hyperlipidemia, hypertension, anxiety disorder, history of some testosterone deficiency and benign prostatic hypertrophy. I see him in the office usually and his previous stress test that was performed a few months ago was here at [facility]. I reviewed the stress test and noted that there was no significant area of ischemia and suggested medical therapy. He also has chronic kidney disease and given this, I have a very high threshold of performing any coronary angiography on this patient with diabetes and CKD. Nuclear scan reviewed, which was a Lexiscan stress test revealed that there was a questionable abnormality in the lateral wall, but upon my review, I did not feel it was significant. I recommended a repeat dobutamine echo, but the patient did not follow through for that. He came in with sharp pain in the chest and also some radiation from the left shoulder down to the left elbow. He is comfortable, asymptomatic. Three sets of troponins are normal. EKG is unremarkable. His anxiety seems to have also improved somewhat. PAST MEDICAL HISTORY: 1. Diabetes with chronic kidney disease. 2. Hypertension. 3. Anxiety disorder. 4. Hypertension. 5. Hyperlipidemia. 6. History of testosterone deficiency. MEDICATIONS: Medications at home include: Flomax, metformin, trazodone, losartan, levothyroxine, fenofibrate, Plavix 75 mg daily, aspirin 81 mg daily. Patient also carries a diagnosis of CVA, details unclear. PHYSICAL EXAMINATION: On examination, blood pressure is 128/70, pulse rate is 78 per minute and regular. HEENT unremarkable. Fundus was not examined by me. NECK is supple. There is no JVD. I do not hear a carotid bruit. HEART exam reveals S1, S2. There is a short, insignificant murmur audible. LUNGS are clear. ABDOMEN is soft, nontender. Lower EXTREMITIES reveal normal pulses. No edema. Central nervous system is normal. LABORATORY DATA: Suggest the troponins are normal and creatinine is 1.5. IMPRESSION: 1. Atypical chest pain. 2. Hypertension. 3. Type 2 diabetes with CKD. 4. History of transient ischemic attack/cerebrovascular accident, no details available. There are no residual neurological deficits. RECOMMENDATIONS: I am recommending that we will discontinue beta delmi for this patient and perform a dobutamine echo on Wednesday and if this is normal, we can discharge him and if it is abnormal, we will do cardiac cath. I explained this to the patient in detail. I will discontinue IV heparin and put him on subcu heparin. The patient understands the rationale for this and I explained to him that that the reason for not doing a cardiac cath immediately was because I wished to preserve his renal function in the light of diabetes and CKD. The patient seems understandable. We will therefore do a dobutamine echo on Wednesday. Thank you very much for the consult. HODA / VALERIANON: [id number] /
[2021-03-08] MEDS: INSULIN ASPART (NovoLOG) 100 UNIT/ML VIAL SQ SCH ×2 (17:39→21:24)
[2021-03-08 19:47] LABS: Glucose,Whole Blood 185 mg/dL (75-99)
[2021-03-08] MEDS: TAMSULOSIN 0.4 MG CAP.ER.24H PO SCH (21:19)
[2021-03-08] MEDS: FENOFIBRATE 54 MG TAB PO SCH (21:19)
[2021-03-08] MEDS: traZODone HCL 100 MG TAB PO SCH (21:19)
[2021-03-08] MEDS: ATORVASTATIN 10 MG TAB PO SCH (21:19)
[2021-03-08] MEDS: DULoxetine HCL 60 MG CAPSULE.DR PO SCH (21:19)
[2021-03-09] MEDS: NITROGLYCERIN OINT 1 INCH/GM PACKET TOPICAL SCH ×4 (05:34→20:57)
[2021-03-09] MEDS: LEVOTHYROXINE 88 MCG TAB PO SCH (05:57)
[2021-03-09 06:54] LABS: Glucose,Whole Blood 226 mg/dL (75-99)
[2021-03-09] MEDS: INSULIN ASPART (NovoLOG) 100 UNIT/ML VIAL SQ SCH ×4 (07:49→20:53)
[2021-03-09] MEDS: NON FORMULARY DRUG (Cariprazine Hcl [Vraylar] 1.5 MG Capsule) PO SCH (09:00)
[2021-03-09] MEDS: MECLIZINE 25 MG TAB PO SCH ×2 (09:07→20:53)
[2021-03-09] MEDS: ASPIRIN 81 MG PO SCH (09:07)
[2021-03-09] MEDS: CLOPIDOGREL 75 MG TAB PO SCH (09:07)
[2021-03-09] MEDS: CYANOCOBALAMIN 500 MCG TAB PO SCH (09:07)
[2021-03-09] MEDS: tiZANidine 4 MG TAB PO SCH ×2 (09:08→17:39)
[2021-03-09] MEDS: PREGABALIN 75 MG CAP PO SCH ×2 (09:08→20:54)
[2021-03-09] MEDS: FUROSEMIDE 40 MG TAB PO SCH (09:08)
[2021-03-09] MEDS: FOLIC ACID 1 MG TAB PO SCH (09:08)
[2021-03-09] MEDS: buPROPion XL 150 MG TAB.ER.24H PO SCH (09:08)
[2021-03-09] MEDS: CLOTRIMAZOLE 1% CREAM 30 GM TUBE TOPICAL SCH (09:09)
[2021-03-09] MEDS ORDERED: DOBUTamine DRIP for NUC MED 500 MG in DEXTROSE/WATER 1 250ML.BAG IV PRN (09:59)
[2021-03-09] MEDS ORDERED: POTASSIUM CHLORIDE ER 20 MEQ TAB.ER PO STA (10:31)
[2021-03-09] MEDS: hydrALAZINE HCL 50 MG TAB PO SCH ×2 (10:40→20:54)
[2021-03-09] MEDS: amLODIPine 5 MG TAB PO SCH (10:42)
[2021-03-09 11:53] LABS: Glucose,Whole Blood 266 mg/dL (75-99)
--- NOTE | 2021-03-09 12:10 | P.PN ---
Subjective 50-year-old male who presents emergency Department complaining of chest pain radiating to his left arm with shortness of breath and diaphoresis. Patient states it started 8:00 this morning. Patient states he has a history of diabetes high blood pressure and high cholesterol and a strong family history of coronary artery disease. Patient states she quit smoking in November. Patient's pain is pressure like sensation mild to moderate severity nonexertional nonpleuritic not associated with food. Patient denies any abdominal pain patient denies any vomiting or diarrhea. Patient denies any recent fever chills or cough per patient denies any swelling to the legs or calf tenderness. Patient had a first set of troponin which was negative and EKG showed sinus rhythm without any acute ST-T wave changes. Patient had a recent stress test in month of November which is a Lexiscan stress test which showed some inducible ischemia in [place] smaller area in the posterior lateral area. This was believed to be insignificant at that time and was discharged home. 03/08/2021 Patient is feeling better but still complaining of on and off chest pain and the cardiology evaluated the patient the recommending stress test on Wednesday. 03/09/2021 Patient's beta delim discontinued for tomorrow stress test and Norvasc was added because of her elevated blood pressure. Constitutional: Denied any fatigue denied any fever. Cardio vascular: As mentioned in the interval history Gastrointestinal denied any nausea vomiting Pulmonary: Denied any shortness of breath cough Neurologic denied any new focal deficits All inpatient medications were reviewed and appropriate changes in these medications as dictated in the interval history and assessment and plan. Objective - Vital Signs Vital signs: Vital Signs Temp 98.4 F 03/09/21 07:00 Pulse 87 03/09/21 10:39 Resp 16 03/09/21 07:00 BP 159/115 03/09/21 10:39 Pulse Ox 96 03/09/21 08:54 Intake & Output 03/08/21 03/09/21 03/09/21 18:59 06:59 18:59 Intake Total 300.326 240 Balance 300.326 240 Intake: Intake, IV Titration 60.326 Amount Heparin Sod,Pork in 0.45% 60.326 NaCl 25,000 unit In 0.45 % NaCl 1 250ml.bag @ 11.2 UNITS/KG/HR 10.008 mls/ hr IV .Q24H [facility] Rx#: [id number] Oral 240 240 Other: Voiding Method Toilet Toilet # Voids 2 1 2 - Exam PHYSICAL EXAMINATION: GENERAL: The patient is alert and oriented x3, not in any acute distress. Well developed, well nourished. HEENT: Pupils are round and equally reacting to light. EOMI. No scleral icterus. No conjunctival pallor. Normocephalic, atraumatic. No pharyngeal erythema. No thyromegaly. CARDIOVASCULAR: S1 and S2 present. No murmurs, rubs, or gallops. PULMONARY: Chest is clear to auscultation, no wheezing or crackles. ABDOMEN: Soft, nontender, nondistended, normoactive bowel sounds. No palpable organomegaly. MUSCULOSKELETAL: No joint swelling or deformity. EXTREMITIES: No cyanosis, clubbing, or pedal edema. NEUROLOGICAL: Gross neurological examination did not reveal any focal deficits. SKIN: No rashes. - Labs CBC & Chem 7: 03/07/21 12:51 03/08/21 06:03 Labs: Abnormal Lab Results - Last 24 Hours (Table) 03/08/21 03/08/21 03/09/21 Range/Units 17:08 19:46 06:52 POC Glucose (mg/dL) 182 H 185 H 226 H (75-99) mg/dL 03/09/21 Range/Units 11:51 POC Glucose (mg/dL) 266 H (75-99) mg/dL Assessment and Plan Plan: - chest pain: We will rule out acute coronary syndromes. Patient will undergo stress test on Wednesday was evaluated by cardiology. - mild hyponatremia: Secondary to Demadex. Sodium improved with IV fluids presently not in any fluids -Leukocytosis which is reactive -Type 2 diabetes mellitus with diabetic nephropathy controlled elevated blood sugars -To be without any acute exacerbation -Type 2 diabetes mellitus -Gastroesophageal reflux disease -Hypertension: Patient is on losartan at home which can be resumed and patient is on Norvasc which was started by cardiology. Upon discharge patient probably should go back on losartan -Depression
--- NOTE | 2021-03-09 14:41 | PN ---
PROGRESS NOTE Mr. Fontana is in sinus rhythm today. We held his beta delmi with the understanding he will have a dobutamine echo tomorrow. He is doing well. No further chest pain. Vital signs stable. Tachycardia noted. S1, S2 heard normally, no significant murmurs. Lungs revealed bilateral decent air entry. Abdomen is soft. Lower extremities reveal palpable pulses, trace edema. Central nervous system is normal. I will add a small dose of hydralazine and Norvasc for his blood pressure control. We will do a dobutamine echo tomorrow. Previous Lexiscan stress test did not clearly suggest any ischemia. Patient has chronic kidney disease. Tomorrow if dobutamine echo is normal, he can be discharged. MMODL / IJN: [id number] /
[2021-03-09 17:30] LABS: Glucose,Whole Blood 198 mg/dL (75-99)
[2021-03-09 20:38] LABS: Glucose,Whole Blood 206 mg/dL (75-99)
[2021-03-09] MEDS: traZODone HCL 100 MG TAB PO SCH (20:54)
[2021-03-09] MEDS: TAMSULOSIN 0.4 MG CAP.ER.24H PO SCH (20:54)
[2021-03-09] MEDS: FENOFIBRATE 54 MG TAB PO SCH (20:54)
[2021-03-09] MEDS: DULoxetine HCL 60 MG CAPSULE.DR PO SCH (20:54)
[2021-03-09] MEDS: ATORVASTATIN 10 MG TAB PO SCH (20:54)
[2021-03-10] MEDS: tiZANidine 4 MG TAB PO SCH ×2 (00:01→08:25)
[2021-03-10] MEDS: NITROGLYCERIN OINT 1 INCH/GM PACKET TOPICAL SCH (00:02)
[2021-03-10 02:41] VITALS: TEMP 97.4
[2021-03-10] MEDS: LEVOTHYROXINE 88 MCG TAB PO SCH (05:45)
[2021-03-10 07:07] LABS: Glucose,Whole Blood 212 mg/dL (75-99)
[2021-03-10 07:27] VITALS: BP 146/104; PULSE 95; RESP 16
[2021-03-10] MEDS: CLOPIDOGREL 75 MG TAB PO SCH (08:23)
[2021-03-10] MEDS: PREGABALIN 75 MG CAP PO SCH (08:24)
[2021-03-10] MEDS: FOLIC ACID 1 MG TAB PO SCH (08:24)
[2021-03-10] MEDS: buPROPion XL 150 MG TAB.ER.24H PO SCH (08:24)
[2021-03-10] MEDS: amLODIPine 5 MG TAB PO SCH (08:24)
[2021-03-10] MEDS: hydrALAZINE HCL 50 MG TAB PO SCH (08:24)
[2021-03-10] MEDS: CYANOCOBALAMIN 500 MCG TAB PO SCH (08:24)
[2021-03-10] MEDS: FUROSEMIDE 40 MG TAB PO SCH (08:24)
[2021-03-10] MEDS: ASPIRIN 81 MG PO SCH (08:24)
[2021-03-10] MEDS: MECLIZINE 25 MG TAB PO SCH (08:24)
[2021-03-10] MEDS: CLOTRIMAZOLE 1% CREAM 30 GM TUBE TOPICAL SCH (08:25)
[2021-03-10] MEDS: NON FORMULARY DRUG (Cariprazine Hcl [Vraylar] 1.5 MG Capsule) PO SCH (08:25)
--- NOTE | 2021-03-10 11:18 | P.STRESS ---
- Stress Test Note Stress Test Results/Findings: Exam Performed: dobutamine stress echo with con Exam Date: 03/10/21 Reason for Exam: cp Height: 5 ft 5 in Weight: 89.36 kg Protocol: DSE Stage: I Duration of Exercise: 3.07 Resting Heart Rate: 120 Resting Blood Pressure: 162/74 Maximum Achieved Heart Rate: 165 Maximum Achieved Blood Pressure: 186/84 85% PMHR: 145 100% PMHR: 170 METS: Technologist Comment: Stress Test Results/Findings: This is a 50-year-old gentleman was admitted to the hospital with chest pain and patient was evaluated by Dr. ELIJAH Harper who recommended dobutamine echocardiogram. Stress data: Baseline EKG showed sinus rhythm. Normal [place] interval and QRS duration. Blood pressure at rest is 160/74 with pulse rate of 120. Test and also dobutamine was initiated at 10 mics patient heart rate went up to 165 with a blood pressure 186/84. EKGs taken during and after the infusion did not reveal any significant changes from the baseline. Echo data: Baseline echo images show normal wall motion and thickening. Echo images taken at low dose and high dose dobutamine showed augmentation wall motion and thickening in all the segments. Final impression: #1. Negative stress test with dobutamine. #2. Negative dobutamine stress echo
[2021-03-10 11:20] LABS: Glucose,Whole Blood 220 mg/dL (75-99)
--- NOTE | 2021-03-10 11:21 | P.PN ---
Subjective Progress Note Date: 03/10/21 HISTORY OF PRESENT ILLNESS: Patient examined this morning in the stress lab. Patient denies any further episodes of chest pain or discomfort. He denies shortness of breath. Vital s igns are stable. PHYSICAL EXAM: VITAL SIGNS: Reviewed. GENERAL: Well-developed in no acute distress. NECK: Supple. No JVD or thyromegaly LUNGS: Respirations even and unlabored. Lungs essentially clear to auscultation bilaterally. HEART: Regular rate and rhythm. S1 and S2 heard. EXTREMITIES: Normal range of motion. No clubbing or cyanosis. Peripheral pulses intact. No lower extremity edema ASSESSMENT: Chest pain, troponins negative 3 Hypertension Hyperlipidemia Diabetes mellitus Chronic kidney disease Anxiety disorder History of testosterone deficiency PLAN: Patient underwent dobutamine stress today which was negative for ischemia Patient may be discharged home today from a cardiac standpoint and follow up outpatient with Dr. Harper Nurse practitioner note has been reviewed by physician. Signing provider agrees with the documented findings, assessment, and plan of care. Objective - Vital Signs Vital signs: Vital Signs Temp 97.4 F L 03/10/21 07:00 Pulse 95 03/10/21 07:00 Resp 16 03/10/21 07:00 BP 146/104 03/10/21 07:00 Pulse Ox 95 03/10/21 07:00 Intake & Output 03/09/21 03/10/21 03/10/21 18:59 06:59 18:59 Intake Total 720 Balance 720 Intake: Oral 720 Other: Voiding Method Toilet Toilet # Voids 2 1 # Bowel Movements 1 - Labs CBC & Chem 7: 03/07/21 12:51 03/08/21 06:03 Labs: Abnormal Lab Results - Last 24 Hours (Table) 03/09/21 03/09/21 03/09/21 Range/Units 11:51 17:25 20:37 POC Glucose (mg/dL) 266 H 198 H 206 H (75-99) mg/dL 03/10/21 Range/Units 07:06 POC Glucose (mg/dL) 212 H (75-99) mg/dL
[2021-03-10] MEDS: INSULIN ASPART (NovoLOG) 100 UNIT/ML VIAL SQ SCH ×2 (11:31→12:20)
--- NOTE | 2021-03-10 15:44 | DS ---
DISCHARGE SUMMARY FINAL DIAGNOSES: 1. Chest pain, possibly musculoskeletal, with a negative stress test. 2. Mild hyponatremia. 3. Leukocytosis, reactive. 4. Diabetes mellitus, type 2. 5. Gastroesophageal reflux disease. 6. Hypertension. 7. Depression. DISCHARGE DISPOSITION: The patient will be discharged in stable condition with guarded prognosis. HISTORY OF PRESENT ILLNESS: This 50-year-old gentleman with a past medical history of multiple medical problems, including chest pain. Cardiology saw the patient. Myocardial infarction was ruled out. Cardiology performed a stress test which showed no reversible ischemia. The patient will be discharged in stable condition with guarded prognosis. Follow-up labs were recommended with the primary physician. On exam, vitals are stable. CARDIOVASCULAR SYSTEM: S1, S2 muffled. ABDOMEN: Soft. NERVOUS SYSTEM: No focal deficit. DISCHARGE ADVICE AND MEDICATIONS: 1. Diet is cardiac, consistent-carb. 2. Activity limited until followup. 3. Follow up with Dr. Phillips in 2-3 days. 4. Follow up with Cardiology as recommended. 5. Accu-Cheks before meals and at bedtime. 6. Antivert 25 mg b.i.d. 7. Ativan p.r.n. 8. Cymbalta 60 mg at bedtime. 9. Testosterone as before. 10.Dicyclomine 20 mg p.o. t.i.d. 11.Flomax 0.5 mg at bedtime. 12.Lipitor 10 mg at bedtime. 13.Lofibra 54 mg at bedtime. 14.Lopressor 100 mg p.o. b.i.d. 15.Clotrimazole topically. 16.Metformin 1000 mg p.o. b.i.d. 17.Plavix 75 mg p.o. daily. 18.Levothyroxine 88 mcg p.o. daily. 19.Trazodone 200 mg at bedtime. 20.Cariprazine 1.5 mg p.o. daily. 21.Wellbutrin XL 150 mg p.o. daily. 22.Zanaflex 4 mg p.o. q.8. 23.Apresoline 50 mg p.o. b.i.d. 24.Aspirin 81 mg p.o. daily. 25.Folic acid 1 mg p.o. daily. 26.Lasix 40 mg p.o. daily. 27.Lyrica 100 mg p.o. t.i.d. 28.Hydrocodone p.r.n. 29.Norvasc 5 mg p.o. daily. 30.Tylenol p.r.n. 31.Vitamin B12, 1000 mcg p.o. daily. Discontinued medications are losartan and torsemide. MMODL / IJN: [id number] /
[2021-03-10] MEDS ORDERED: METOPROLOL TARTRATE 50 MG TAB PO SCH (21:00)
--- NOTE | 2021-03-11 09:19 | EST ---
Stress Test Results/Findings: Exam Performed: dobutamine stress echo with con Exam Date: 03/10/21 Reason for Exam: cp Height: 5 ft 5 in Weight: 89.36 kg Protocol: DSE Stage: I Duration of Exercise: 3.07 Resting Heart Rate: 120 Resting Blood Pressure: 162/74 Maximum Achieved Heart Rate: 165 Maximum Achieved Blood Pressure: 186/84 85% PMHR: 145 100% PMHR: 170 METS: Technologist Comment: Stress Test Results/Findings: This is a 50-year-old gentleman was admitted to the hospital with chest pain and patient was evaluated by Dr. ELIJAH Harper who recommended dobutamine echocardiogram. Stress data: Baseline EKG showed sinus rhythm. Normal [place] interval and QRS duration. Blood pressure at rest is 160/74 with pulse rate of 120. Test and also dobutamine was initiated at 10 mics patient heart rate went up to 165 with a blood pressure 186/84. EKGs taken during and after the infusion did not reveal any significant changes from the baseline. Echo data: Baseline echo images show normal wall motion and thickening. Echo images taken at low dose and high dose dobutamine showed augmentation wall motion and thickening in all the segments. Final impression: #1. Negative stress test with dobutamine. #2. Negative dobutamine stress echo MTDD
== END 2021-03-10 14:05 | disposition home or self-care (01) ==
LOC: EC 12:08 → 6NMEDSUR 15:19
PROVIDERS: ADMIT Internal Medicine; ATTEND Internal Medicine
DX: R07.89 Other chest pain (principal); R61 Generalized hyperhidrosis; R00.0 Tachycardia, unspecified; R20.0 Anesthesia of skin; R06.02 Shortness of breath; I13.0 Hypertensive heart and chronic kidney disease with heart failure and stage 1 through stage 4 chronic kidney disease, or unspecified chronic kidney disease; I50.9 Heart failure, unspecified; E11.22 Type 2 diabetes mellitus with diabetic chronic kidney disease; N18.30 Chronic kidney disease, stage 3 unspecified; E11.51 Type 2 diabetes mellitus with diabetic peripheral angiopathy without gangrene; E87.1 Hypo-osmolality and hyponatremia; D72.829 Elevated white blood cell count, unspecified; K21.9 Gastro-esophageal reflux disease without esophagitis; F32.9 Major depressive disorder, single episode, unspecified; F41.9 Anxiety disorder, unspecified; E78.5 Hyperlipidemia, unspecified; N40.0 Benign prostatic hyperplasia without lower urinary tract symptoms; E29.1 Testicular hypofunction; E78.00 Pure hypercholesterolemia, unspecified; I48.91 Unspecified atrial fibrillation; G47.33 Obstructive sleep apnea (adult) (pediatric); E66.01 Morbid (severe) obesity due to excess calories; Z68.32 Body mass index [BMI] 32.0-32.9, adult; I34.1 Nonrheumatic mitral (valve) prolapse; R60.0 Localized edema; J45.909 Unspecified asthma, uncomplicated; K76.0 Fatty (change of) liver, not elsewhere classified; G89.29 Other chronic pain; M54.9 Dorsalgia, unspecified; L30.9 Dermatitis, unspecified; Z20.822 Contact with and (suspected) exposure to COVID-19; Z86.73 Personal history of transient ischemic attack (TIA), and cerebral infarction without residual deficits; Z87.891 Personal history of nicotine dependence; Z86.711 Personal history of pulmonary embolism; Z87.442 Personal history of urinary calculi; Z87.19 Personal history of other diseases of the digestive system; Z85.828 Personal history of other malignant neoplasm of skin; Z98.1 Arthrodesis status; Z79.890 Hormone replacement therapy; Z79.84 Long term (current) use of oral hypoglycemic drugs; Z79.02 Long term (current) use of antithrombotics/antiplatelets; Z79.82 Long term (current) use of aspirin; Z79.899 Other long term (current) drug therapy; Z88.1 Allergy status to other antibiotic agents; Z91.041 Radiographic dye allergy status; Z88.5 Allergy status to narcotic agent; Z88.2 Allergy status to sulfonamides; Z91.048 Other nonmedicinal substance allergy status; T50.1X5A Adverse effect of loop [high-ceiling] diuretics, initial encounter; Z80.9 Family history of malignant neoplasm, unspecified; Z82.49 Family history of ischemic heart disease and other diseases of the circulatory system
CPT/HCPCS: 96366 ×3; 93005 ×3; 96376; 96361; 96365; 99291; 36415; 94760; 80061; 80053; 80048; 83735; 84484; 85025; 85610; 85730 ×2; 87635; 71046; G0378 ×4; C8930; J1250; J1644 ×3; Q9950; 93351

== ENCOUNTER → 2021-03-14 | Outpatient (CLI) | payer OTHER ==
[2021-03-14 16:21] LABS: Anion Gap 12.3 mmol/L (4.00-12.00); Calcium 9.7 mg/dL (8.7-10.3); Carbon Dioxide 27.7 mmol/L (21.6-31.8); Non-African American GFR(CKD) 53.5 (60.0-200.0); Potassium 3.9 mmol/L (3.5-5.5)
[2021-03-14 16:29] LABS: Basophils # (A) 0.09 X 10*3/uL (0.00-0.10); Basophils % (A) 0.9 %; Eosinophils # (A) 0.36 X 10*3/uL (0.04-0.35); Eosinophils % (A) 3.6 %; HGB 13.4 g/dL (13.0-17.0); MCH 31.2 pg (27.0-32.0); MCHC 31.9 g/dL (32.0-37.0); MCV 97.7 fL (80.0-97.0); Monocytes # (A) 0.96 X 10*3/uL (0.20-1.00); Monocytes % (A) 9.6 %; Neutrophils # (A) 6.07 X 10*3/uL (1.80-7.70); Neutrophils % (A) 60.7 %; Platelet Count 356 X 10*3/uL (140-440); RDW 12.6 % (11.5-14.5)
== END | disposition home or self-care (01) ==
LOC: LABWHC1 09:44
PROVIDERS: ATTEND Registered Nurse
DX: D72.829 Elevated white blood cell count, unspecified (principal); R79.89 Other specified abnormal findings of blood chemistry
CPT/HCPCS: 36415; 80048; 85025

== ENCOUNTER → 2021-04-07 | Outpatient (CLI) | payer OTHER ==
[2021-04-07 10:19] VITALS: BP 110/74; PULSE 88; RESP 16; TEMP 97.9
--- NOTE | 2021-04-07 10:33 | P.PN ---
Subjective Progress Note Date: 04/07/21 This is follow-up visit, for this patient with a history of severe and chronic neck pain and low back pain , he is diagnosed with cervical spondylosis, failed back surgery syndrome cervical area , lumbar spondylosis with facet arthropathy, and myofascial pain syndrome and cervical area . Patients currently on Russell 10/325 every 12 hours PRN , Lyrica 100 mg 3 times a day, Zanaflex 4 mg 3 times a day. Patient denies any side effects of the medication, denies excessive drowsiness or sleepiness, denies suicidal ideation, and reports that the current pain medication is helping to control the pain ,and improve activity of daily living ,Patient denies any motor or sensory deficit , patient denies any fever or night sweats, denies any change in the bowel movements or urination Recently we have done diagnostic medial branch block lumbar area , he reported he got excellent pain relief after the block , patient here today for medication refill. Today patient complaining of severe right elbow pain consistent increases with any elbow movement, shoulder scheduled to have second diagnostic medial branch block but he did not have it because he had chest pain and he was admitted to [facility] and he had multiple diagnostic studies including stress test. Physical Examinations : -Constitutiona : Cooperative , not in acute distress . -HEENT : nech : supple , no Lymphadenopathy , normal t hyroid size . : eyes : no ptosis , no icterus, no photophobia . - neurologic : Cranial nerve II to XII intact , no focal neurological deffecit . -psychatric : alert , oriented X 3 , appropriate affect , intact judgment and insight . -Lymphatic : no Lymphadenopathy . - musculoskeltal : Severe tenderness over the thanh lateral aspect of the right elbow Normal motor strength Lumber spine moter stegnth lower extremities ,thigh and legs 5/5 Right side , 5/5 Left side deep tendon reflexes : normal Knee Jerk , normal ankle Jerk lumber facet Loading Test =positive Right , positive Left Range of motion of the lumbar spine Flexion 30 degrees, extension 10 degrees strait leg raising test = positive at 45 degree bilaterally Fabere test= positive Right , and positive LT . 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 chronic and current use of high-risk medication (opioids) Patient denies any side effects of the current pain medication and the current treatment/medication helping the patient to do activity of daily living , Diagnoses, prognosis, treatment options, including but not limited to phy sical therapy, medication management, interventional therapies, and surgery, were discussed with the patient All the questions answered The narcotic consent was signed and patient agreed and understood the side effects and complications of opioid treatment. Patient signed the narcotic agreement, and was orally counseled, not to overuse, not to abuse, not to Divert , not tp sell pain medication, and to take it as prescribed only, Patient was counseled not to drive or operate heavy equipment while using narcotic medication, and advised not to use alcohol or any Illicit drugs while using the narcotis. understanding that lack of compliance with any of the above instructions, will likely to cause discharge from, the pain service, not to renew his narcotic prescriptions [facility] Reviwed and it was apropriate . Medication managements= patient will be given prescription refills for Russell 10/325 every 12 hours dispensed 45 with one refill, Lyrica 100 mg 3 times a day Zanaflex 4 mg 3 times a day with one refill. Patient will be started on Voltaren gel 1% to be applied to the right elbow area 3-4 times a day when necessary Procedure= patient will be scheduled to have second diagnostic medial branch block lumbar area at L3 ,L4 ,L5 bilateral Time with Patient: Less than 30 PQRS Measure Charge Sheet Measure #130: Documentation of Current Meds in Medical Chart: Patient's medications documented in chart Measure #226: Tobacco Use: Screen & Cessation Intervention: Pt screened for tobacco use AND intervention given Measure #111: Pneumonia Vaccination: Pneumococcal vaccine administered or previously received Measure #47: Advance Care Plan: Advance care planning discussed & documented, pt chose/unable to give Measure #412: Opioid Treatment Agreement: Documented signed opioid trtmnt agreemnt min once during opioid trtmnt Measure #408: Opioid Therapy Follow-up Evaluation: Patient had f/u eval minimum every 3 months during opioid therapy Measure #317: Preventitive Care & Scrn High Bld Press & F/U:110/74 within normal limits and he will follow up with the primary Measure #128: Body Mass Index (BMI) Screening & Follow-up: BMI documented ABOVE normal parameters - f/u documented Measure #131: Pain Assessment & Follow-up: Pain positive & plan documented, Follow-up scheduled Measure #431: Unhealthy Alcohol Use Preventative Care & Scrn: Patient not identified as an unhealthy alcohol user Objective - Vital Signs Vital signs: Vital Signs Temp 97.9 F 04/07/21 10:17 Pulse 88 04/07/21 10:17 Resp 16 04/07/21 10:17 BP 110/74 04/07/21 10:17 Pulse Ox 97 04/07/21 10:17
== END ==
LOC: PNWHC3 10:03
PROVIDERS: ATTEND Specialist
DX: M47.812 Spondylosis without myelopathy or radiculopathy, cervical region (principal); M96.1 Postlaminectomy syndrome, not elsewhere classified; M25.512 Pain in left shoulder; M51.36 Other intervertebral disc degeneration, lumbar region; M47.816 Spondylosis without myelopathy or radiculopathy, lumbar region; G89.29 Other chronic pain; Z79.891 Long term (current) use of opiate analgesic; Z91.048 Other nonmedicinal substance allergy status; Z88.1 Allergy status to other antibiotic agents; Z91.041 Radiographic dye allergy status; Z88.2 Allergy status to sulfonamides; Z88.6 Allergy status to analgesic agent
CPT/HCPCS: 99211

== ENCOUNTER → 2021-04-17 | Outpatient (CLI) | payer OTHER ==
--- NOTE | 2021-04-17 11:36 | XR ---
EXAMINATION TYPE: XR elbow complete RT DATE OF EXAM: 04/17/2021 CLINICAL HISTORY: Intermittent right elbow pain TECHNIQUE: Frontal, lateral and oblique images of the right elbow are obtained. COMPARISON: 07/24/2013 FINDINGS: There is no acute fracture/dislocation evident in the right elbow. No abnormal fat pad si gns are seen. The overlying soft tissue appears unremarkable. IMPRESSION: There is no acute fracture or dislocation in the right elbow.
== END | disposition home or self-care (01) ==
LOC: RADXRYALE 11:04
PROVIDERS: ATTEND Physician Assistant
DX: M25.521 Pain in right elbow (principal)

== ENCOUNTER 2021-05-06 09:38 | Day surgery (SDC) | payer OTHER ==
[2021-05-01 12:53] VITALS: BMI 34.4
[2021-05-06 09:57] VITALS: RESP 18; TEMP 98.7
[2021-05-06 09:59] LABS: Glucose,Whole Blood 202 mg/dL (75-99)
[2021-05-06] MEDS ORDERED: methylPREDNISolone ACETATE 40 MG/ML 1 ML VIAL ONE (10:04)
[2021-05-06] MEDS ORDERED: ROPIVACAINE 5MG/ML 20ML VIAL ONE (10:04)
--- NOTE | 2021-05-06 10:22 | P.PCN ---
Date of Procedure: 05/06/21 Procedure(s) Performed: PREOPERATIVE DIAGNOSIS : 1- Lumbar spondylosis with Facet Arthropathy without myelopathy . POSTOPERATIVE DIAGNOSIS: 1- Lumbar spondylosis with Facet Arthropathy without myelopath. PROCEDURE: Diagnostic bilateral L3 , L4 , and L5 medial branch block under fluoroscopy guidance(fluoroscopy images available in the radiology Department ) ( To target the facet joint between L4-5 , and L5-S1 ) ANESTHESIA:,Local Infiltration with ropivacaine 0.5% 6 mL. only . EBL: Minimal COMPLICATION: None PROCEDURE INDICATION: Chronic low back pain secondary to Facet arthropathy unresponsive to conservative treatment. PROCEDURE DESCRIPTION: the patient was seen and identified in the preop holding area , risks and benefits and possible complications of the procedure and alternative were discussed with the patient, and the patient agreed to proceed with the procedure and signed the consent and vital signs monitored during the procedure and fluoroscopy was used to maximize the benefit and accuracy of the needle placement, and sedation was given to decrease patient anxiety, patient was taken to the procedure room and placed in prone position vital signs monitored in the back prepped with chlorhexidine X3 then under strict sterile technique using a right oblique fluoroscopy ,the junction of the transverse process and the superior articulating process of the right L3 , L4 , and L5 vertebra which corresponding to the fluoroscopy image of the eye of the Jm dog on the block side for the medial branches and subsequently , after local infiltration of skin and subcu tissuies with Ropivacaine 0.5 % , one mL at each level ,then 25-gauge Quincke-type needles , 3 needle was used , each one of them placed at the junction of the base of the transverse process and the superior articular process at the appropriate level, and the needle was advanced until the periosteum contacted, needle placement confirmed with AP oblique and lateral view and after appropriate needle placement confirmed, and after negative aspiration for heme and CSF and there was no paresthesia 1-1/2 mL of Ropivacaine 0.5% mixed with 20 mg Depo-Medrol , then half mL injected at each level after negative aspiration the needle subsequently removed and the same procedure repeated for the left side at left side at L3 , L4 and L5 levels. At the end of the procedure and the needles removed and a bandage applied after the skin was cleaned the cleaning solution patient taken to recovery room in stable condition and monitors in the recovery room for 20-30 minutes and discharged home in stable condition after discharge criteria met and patient will follow up with the pain clinic in 2-4 weeks
[2021-05-06 10:39] VITALS: BP 116/78; PULSE 78
--- NOTE | 2021-05-06 11:10 | FL ---
EXAMINATION TYPE: FL guided pain mgmt statistic DATE OF EXAM: 05/06/2021 CLINICAL HISTORY: Low back pain. TECHNIQUE: Fluoroscopy. COMPARISON: None. FINDINGS: Fluoroscopic guidance was provided during pain relief procedure performed by Dr. Cullen . A total of 11 seconds of fluoroscopic time was utilized during the procedure and 4 spot images are acquired. Images acquired shows needle localization at several levels in the lumbar spine. IMPRESSION: As Above.
== END 2021-05-06 10:55 | disposition home or self-care (01) ==
LOC: ORPAIN 09:38
PROVIDERS: ATTEND Specialist
DX: M47.816 Spondylosis without myelopathy or radiculopathy, lumbar region (principal); Z91.041 Radiographic dye allergy status
CPT/HCPCS: 64493; 64494; J1030; J2795

== ENCOUNTER → 2021-06-02 | Outpatient (CLI) | payer OTHER ==
[2021-06-02 10:12] VITALS: BP 96/63; PULSE 106; RESP 18; TEMP 98.4
--- NOTE | 2021-06-02 10:38 | P.PN ---
Subjective Progress Note Date: 06/02/21 This is follow-up visit, for this patient with a history of severe and chronic neck pain and low back pain , he is diagnosed with cervical spondylosis, failed back surgery syndrome cervical area , lumbar spondylosis with facet arthropathy, and myofascial pain syndrome and cervical area . Patients currently on [place] 10/325 every 12 hours PRN , Lyrica 100 mg 3 times a day, Zanaflex 4 mg 3 times a day. Patient denies any side effects of the medication, denies excessive drowsiness or sleepiness, denies suicidal ideation, and reports that the current pain medication is helping to control the pain ,and improve activity of daily living ,Patient denies any motor or sensory deficit , patient denies any fever or night sweats, denies any change in the bowel movements or urination Recently we have done diagnostic medial branch block lumbar area x2 , he reported he got excellent pain relief after the block , patient here today for medication refille Physical Examinations : -Constitutiona : Cooperative , not in acute distress . -HEENT : nech : supple , no Lymphadenopathy , normal thyroid size . : eyes : no ptosis , no icterus, no photophobia . - neurologic : Cranial nerve II to XII intact , no focal neurological deffecit . -psychatric : alert , oriented X 3 , appropriate affect , intact judgment and insight . -Lymphatic : no Lymphadenopathy . - musculoskeltal : Severe tenderness over the thanh lateral aspect of the right elbow Normal motor strength Lumber spine moter stegnth lower extremities ,thigh and legs 5/5 Right side , 5/5 Left side deep tendon reflexes : normal Knee Jerk , normal ankle Jerk lumber facet Loading Test =positive Right , positive Left Range of motion of the lumbar spine Flexion 30 degrees, extension 10 degrees strait leg raising test = positive at 45 degree bilaterally Fabere test= positive Right , and positive LT . 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 Patient had good results with the diagnostic medial branch block lumbar area 2 , to be good candidate to have RFA of the medial branch lumbar area chronic and current use of high-risk medication (opioids) Patient denies any side effects of the current pain medication and the current treatment/medication helping the patient to do activity of daily living , Diagnoses, prognosis, treatment options, including but not limited to physical therapy, medication management, interventional therapies, and surgery, were discussed with the patient All the questions answered The narcotic consent was signed and patient agreed and understood the side effects and complications of opioid treatment. Patient signed the narcotic agreement, and was orally counseled, not to overuse, not to abuse, not to Divert , not tp sell pain medication, and to take it as prescribed only, Patient was counseled not to drive or operate heavy equipment while using narcotic medication, and advised not to use alcohol or any Illicit drugs while using the narcotis. understanding that lack of compliance with any of the above instructions, will likely to cause discharge from, the pain service, not to renew his narcotic prescriptions MAPS Reviwed and it was apropriate . Urine drug screen ordered today Medication managements= patient will be given prescription refills for [place] 10/325 every 12 hours dispensed 45 with one refill, Lyrica 100 mg 3 times a day Zanaflex 4 mg 3 times a day with one refill. Procedure= patient will be scheduled to have RFA medial branch block lumbar area at L3 ,L4 ,L5 bilateral Time with Patient: Less than 30 - PQRS measures = - Patient's medications are documented in the chart. -Tobacco use is negative and counseling.Given. -Patient's has not received pneumococcal vaccine. -Advanced care planning discussed, patient not eligible. -Opiate contract signed. -Pain positive and follow-up visit/procedure is scheduled. -Patient's blood pressure measured [96/63 ] , and documented in the record ,and patient will follow up with the primary care. -Patient's weight was measured and body mass index [31 ] above the,normal limits and counseling was done. and patient instructed to follow-up with the primary care physician. -Patient was not identified as an unhealthy alcohol user Objective - Vital Signs Vital signs: Vital Signs Temp 98.4 F 06/02/21 10:07 Pulse 106 H 06/02/21 10:07 Resp 18 06/02/21 10:07 BP 96/63 06/02/21 10:07 Pulse Ox 95 06/02/21 10:07
== END ==
LOC: PNWHC3 10:02
PROVIDERS: ATTEND Specialist
DX: M47.812 Spondylosis without myelopathy or radiculopathy, cervical region (principal); M96.1 Postlaminectomy syndrome, not elsewhere classified; M51.36 Other intervertebral disc degeneration, lumbar region; M47.816 Spondylosis without myelopathy or radiculopathy, lumbar region; G89.29 Other chronic pain; F17.200 Nicotine dependence, unspecified, uncomplicated; Z79.891 Long term (current) use of opiate analgesic; Z91.048 Other nonmedicinal substance allergy status; Z88.2 Allergy status to sulfonamides; Z91.041 Radiographic dye allergy status; Z88.8 Allergy status to other drugs, medicaments and biological substances
CPT/HCPCS: 80307; G0482; G0463; 99211; 99212

== ENCOUNTER → 2021-07-16 | Outpatient (CLI) | payer OTHER ==
[2021-07-16 11:18] VITALS: BP 121/85; PULSE 98; RESP 18; TEMP 97.6
--- NOTE | 2021-07-16 11:34 | P.PN ---
Subjective Progress Note Date: 07/16/21 This is a 50-year-old gentleman with history of chronic lower back pain with radiation to the legs bilaterally. His back pain is more intense than his next pain. The pain goes down to the right foot and to the left knee. He feels tingling in both legs in no specific radicular distribution. He had 2 diagnostic lumbar medial branch block previously which gave him 80% of pain relief. The patient had physical therapy during the summertime of 2020 with little improvement. The patient continues to use pain medications at home including Lyrica, [place], Zanaflex. He continues to do his home exercise program. Patient denies new-onset weakness, bowel/bladder incontinence, or any other signs or symptoms of cauda equina syndrome. There are no signs of acute intoxication, and no indications of medication diversion or overuse. In addition to above, 13-point review of systems is also negative for chest pain, shortness of breath, changes in vision, changes in hearing, new onset weakness, abdominal pain, diarrhea, extreme fatigue, malaise, fever, skin changes, homicidal or suicidal ideation, or bowel or bladder incontinence. Vital Signs: Reviewed in EMR Gen: AAOx3, NAD HEENT: PERRLA,hearing grossly normal Pulm: resp unlabored Neck: supple, trachea midline Neuro exam of the lower extremities: Normal muscle strength bilaterally Straight leg raising test: Colin's test: Range of motion of the lumbar spine: Facet loading test: Positive on the lumbar area Tenderness in the paravertebral musculature: Positive on the lumbar area bilaterally Neuro: CN II-XII grossly intact, Imaging: Reviewed in EMR/chart Assessment: Lumbar spondylosis without adenopathy Lumbar radiculopathy Cervical post surgery syndrome Chronic kidney disease stage III Type 2 diabetes Plan: 1. Explanation: When patients on opioids, opioid and psychological risk scores were reviewed. Diagnoses, prognoses, and multiple treatment options including but not limited to physical therapy, interventional therapies, adjuvant medical therapies, narcotic medication therapies, and surgery were discussed with the patient and all questions were answered to the patient's satisfaction. 2. Opioid agreement:When patients are prescribed opoids through our clinic, opioid agreement is signed with the patient and the patient is warned not to use opioids while driving or before driving and not to combine opioids with benzodiazepines or alcohol. 3. Counseling: When patient is smoking or obese, the patient was counseled extensively on SMOKING CESSATION, BODY MASS INDEX, EXERCISE. Specifically, the patient was instructed regarding the importance of smoking cessation, obesity, a nd exercise in the context of both chronic pain and overall health. 4. Procedures: The patient responded favorably with more than 80% of pain relief to a diagnostic lumbar medial branch block and I think he would be a good candidate for lumbar medial branch RFA for levels L3 4, L4-L5, and L5-S1 bilaterally. The patient understands that this procedure may help his lower back pain however it will not help the pain which radiates all the way down to his right foot and for this type of pain he might need a different procedure namely epidural steroid injection either then the interlaminar or transforaminal approach 5. Consultations: None 6. Investigations: if The radicular pain continues to be a problem then I might need to do an MRI on the lumbar spine. 7. Medications: The patient is due for refill in 2 weeks. 8. Disposition: Return to the above-mentioned procedure as soon as possible 9. Maps were reviewed and were appropriate. PQRS measures: 1-Patient's medications are documented in the chart. 2-Tobacco use is negative, counseling given 3-Patient has had a pneumococcal vaccine. 4-Advanced care planning discussed, patient unable to give 5-Opioid contract signed with the patient. 6-Pain positive, follow-up visit or procedure scheduled 7-Patient's blood pressure measured and documented normal limits. The patient will follow up with his primary care physician. 8-Patient's weight was measured, and body mass index ABOVE the normal limits, and counseling was done. Patient instructed to follow up with PCP. 9-Patient WAS NOT identified as an unhealthy alcohol user. Objective - Vital Signs Vital signs: Vital Signs Temp 97.6 F 07/16/21 11:13 Pulse 98 07/16/21 11:13 Resp 18 07/16/21 11:13 BP 121/85 07/16/21 11:13 Pulse Ox 95 07/16/21 11:13
== END ==
LOC: PNWHC3 11:07
PROVIDERS: ATTEND Anesthesiology
DX: M47.26 Other spondylosis with radiculopathy, lumbar region (principal); M96.1 Postlaminectomy syndrome, not elsewhere classified; N18.30 Chronic kidney disease, stage 3 unspecified; E11.22 Type 2 diabetes mellitus with diabetic chronic kidney disease; Z91.048 Other nonmedicinal substance allergy status; Z88.1 Allergy status to other antibiotic agents; Z91.041 Radiographic dye allergy status; Z88.2 Allergy status to sulfonamides; F17.200 Nicotine dependence, unspecified, uncomplicated
CPT/HCPCS: 99211

== ENCOUNTER → 2021-07-28 | Outpatient (CLI) | payer OTHER ==
[2021-07-28 11:28] VITALS: BP 130/90; PULSE 86; RESP 16; TEMP 97.4
--- NOTE | 2021-07-28 11:35 | P.PN ---
Subjective Progress Note Date: 07/28/21 This is follow-up visit, for this patient with a history of severe and chronic neck pain and low back pain , he is diagnosed with cervical spondylosis, failed back surgery syndrome cervical area , lumbar spondylosis with facet arthropathy, and myofascial pain syndrome and cervical area . Patients currently on [place] 10/325 every 12 hours PRN , Lyrica 100 mg 3 times a day, Zanaflex 4 mg 3 times a day. Previously we had done diagnostic medial branch block lumbar area at L3, L4, L5 bilaterally x2, he had 80% improvement of his pain after each block, the pain relief was only for short-term after each block, patient done physical therapy previously in December and January and March 2021, he continued to have severe low back pain after physical therapy, he is currently on medication management,he denies any side effects of the medication, denies excessive drowsiness or sleepiness, denies suicidal ideation, and reports that the current pain medication is helping to control the pain ,and improve activity of daily living ,Patient denies any motor or sensory deficit , patient denies any fever or night sweats, denies any change in the bowel movements or urination Physical Examinations : -Constitutiona : Cooperative , not in acute distress . -HEENT : nech : supple , no Lymphadenopathy , normal thyroid size . : eyes : no ptosis , no icterus, no photophobia . - neurologic : Cranial nerve II to XII intact , no focal neurological deffecit . -psychatric : alert , oriented X 3 , appropriate affect , intact judgment and insight . -Lymphatic : no Lymphadenopathy . - musculoskeltal : Severe tenderness over the thanh lateral aspect of the right elbow Normal motor strength Lumber spine moter stegnth lower extremities ,thigh and legs 5/5 Right side , 5/5 Left side deep tendon reflexes : normal Knee Jerk , normal ankle Jerk lumber facet Loading Test =positive Right , positive Left Range of motion of the lumbar spine Flexion 30 degrees, extension 10 degrees strait leg raising test = positive at 45 degree bilaterally Fabere test= positive Right , and positive LT . 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 Patient had good results with the diagnostic medial branch block lumbar area 2 , to be good candidate to have RFA of the medial branch lumbar area chronic and current use of high-risk medication (opioids) Patient denies any side effects of the current pain medication and the current treatment/medication helping the patient to do activity of daily living , Diagnoses, prognosis, treatment options, including but not limited to physical therapy, medication management, interventional therapies, and surgery, were discussed with the patient All the questions answered The narcotic consent was signed and patient agreed and understood the side effects and complications of opioid treatment. Patient signed the narcotic agreement, and was orally counseled, not to overuse, not to abuse, not to Divert , not tp sell pain medication, and to take it as prescribed only, Patient was counseled not to drive or operate heavy equipment while using narcotic medication, and advised not to use alcohol or any Illicit drugs while using the narcotis. understanding that lack of compliance with any of the above instructions, will likely to cause discharge from, the pain service, not to renew his narcotic prescriptions MAPS Reviwed and it was apropriate . Urine drug reviewed Medication managements= patient will be given prescription refills for [place] 10/325 every 12 hours dispensed 45 with one refill, Lyrica 100 mg 3 times a day Zanaflex 4 mg 3 times a day with one refill. Procedure= patient will be scheduled to have RFA medial branch block lumbar area at L3 ,L4 ,L5 bilateral once it is approved by his insurance Time with Patient: Less than 30 - PQRS measures = - Patient's medications are documented in the chart. -Tobacco use is negative and counseling.Given. -Patient's has not received pneumococcal vaccine. -Advanced care planning discussed, patient not eligible. -Opiate contract signed. -Pain positive and follow-up visit/procedure is scheduled. -Patient's blood pressure measured [130/90 ] , and documented in the record ,and patient will follow up with the primary care. -Patient's weight was measured and body mass index [32.4 ] above the,normal limits and counseling was done. and patient instructed to follow-up with the primary care physician. -Patient was not identified as an unhealthy alcohol user Objective - Vital Signs Vital signs: Vital Signs Temp 97.4 F L 07/28/21 11:22 Pulse 86 07/28/21 11:22 Resp 16 07/28/21 11:22 BP 130/90 07/28/21 11:22 Pulse Ox 98 07/28/21 11:22
== END ==
LOC: PNWHC3 11:01
PROVIDERS: ATTEND Specialist
DX: M47.812 Spondylosis without myelopathy or radiculopathy, cervical region (principal); M96.1 Postlaminectomy syndrome, not elsewhere classified; M51.36 Other intervertebral disc degeneration, lumbar region; M47.816 Spondylosis without myelopathy or radiculopathy, lumbar region; G89.29 Other chronic pain; F17.200 Nicotine dependence, unspecified, uncomplicated; Z79.891 Long term (current) use of opiate analgesic; Z88.2 Allergy status to sulfonamides; Z91.048 Other nonmedicinal substance allergy status; Z91.041 Radiographic dye allergy status; Z88.1 Allergy status to other antibiotic agents; Z88.8 Allergy status to other drugs, medicaments and biological substances
CPT/HCPCS: 99211

== ENCOUNTER → 2021-09-22 | Outpatient (CLI) | payer OTHER ==
[2021-09-22 11:36] VITALS: BP 147/94; PULSE 88; RESP 18; TEMP 97.6
--- NOTE | 2021-09-22 11:37 | P.PN ---
Subjective Progress Note Date: 09/22/21 This is follow-up visit, for this patient with a history of severe and chronic neck pain and low back pain , he is diagnosed with cervical spondylosis, failed back surgery syndrome cervical area , lumbar spondylosis with facet arthropathy, and myofascial pain syndrome and cervical area . Patients currently on [place] 10/325 every 12 hours PRN , Lyrica 100 mg 3 times a day, Zanaflex 4 mg 3 times a day. We will discontinue the Zanaflex and begin baclofen 10 mg 3 times a day. He was getting this medication from his primary care provider but we can prescribe it as well. Previously we had done diagnostic medial branch block lumbar area at L3, L4, L5 bilaterally x2, he had 80% improvement of his pain after each block, the pain relief was only for short-term after each block, patient done physical therapy previously in December and January and March 2021, he continued to have severe low back pain after physical therapy. Currently he is unable to perform his at home exercises due to the pain in his lower back. He denies any side effects of the medication, denies excessive drowsiness or sleepiness, denies suicidal ideation, and reports that the current pain medication is helping to control the pain ,and improve activity of daily living ,Patient denies any motor or sensory deficit , patient denies any fever or night sweats, denies any change in the bowel movements or urination Objective - Exam Physical Examinations : -Constitutiona : Cooperative , not in acute distress . -HEENT : nech : supple , no Lymphadenopathy , normal thyroid size . : eyes : no ptosis , no icterus, no photophobia . - neurologic : Cranial nerve II to XII intact , no focal neurological deffecit . -psychatric : alert , oriented X 3 , appropriate affect , intact judgment and insight . -Lymphatic : no Lymphadenopathy . - musculoskeltal : Lumber spine moter stegnth lower extremities ,thigh and legs 5/5 Right side , 5/5 Left side deep tendon reflexes : normal Knee Jerk , normal ankle Jerk lumber facet Loading Test =positive Right , positive Left Range of motion of the lumbar spine Flexion 30 degrees, extension 10 degrees strait leg raising test = positive at 30 degree Fabere test= positive Right , and positive LT . Sever tenderness over the Sacroiliac joint on the Right , and Left sides Gaenslen test= positive right ,and positive left . Seated flexion test= positive right ,and positive Left . Distraction test= positive bilaterally Sacroiliac compression test= positive bilaterally Assessment and Plan Assessment: Assessment and plan Assessment: Chronic neck pain secondary to cervical spondylosis with cervical facet arthropathy, failed back surgery syndrome and cervical area Left shoulder arthralgia chronic low back pain secondary to lumbar degenerative disc disease , lumbar spondylosis with lumbar facet arthropathy . Patient had good results with the diagnostic medial branch block lumbar area 2 , to be good candidate to have RFA of the medial branch lumbar area chronic and current use of high-risk medication (opioids) Patient denies any side effects of the current pain medication and the current treatment/medication helping the patient to do activity of daily living , Diagnoses, prognosis, treatment options, including but not limited to physical therapy, medication management, interventional therapies, and surgery, were discussed with the patient All the questions answered The narcotic consent was signed and patient agreed and understood the side effects and complications of opioid treatment. Patient signed the narcotic agreement, and was orally counseled, not to overuse, not to abuse, not to Divert , not tp sell pain medication, and to take it as prescribed only, Patient was counseled not to drive or operate heavy equipment while using narcotic medication, and advised not to use alcohol or any Illicit drugs while using the narcotis. understanding that lack of compliance with any of the above instructions, will likely to cause discharge from, the pain service, not to renew his narcotic prescriptions MAPS Reviwed and it was apropriate . Urine drug reviewed Plan: Medication managements= patient will be given prescription refills for [place] 10/325 every 12 hours dispensed 45 with one refill, Lyrica 100 mg 3 times a day D/C Zanaflex 4 mg 3 times a day. Begin Baclofen 10 mg 3 times a day with one refill. Procedure= patient will be scheduled to have RFA medial branch block lumbar area at L3 ,L4 ,L5 bilateral once it is approved by his insurance Dr. Cullen was available by phone for consultation during his visit. I have spent 23 minutes on patient care today. The time was used to review the medical records including relevant urine studies and Prescription history (MAPs), review of the available imaging, evaluation and examination of the patient, coordination of care with the medical staff and if applicable referring physicians, as well as creation of the medical record. - PQRS measures = - Patient's medications are documented in the chart. -Tobacco use is negative -Patient's has not received pneumococcal vaccine. -Advanced care planning discussed, patient not eligible. -Opiate contract signed. -Pain positive and follow-up visit/procedure is scheduled. -Patient's blood pressure measured 147/94 , and documented in the record ,and patient will follow up with the primary care. -Patient was not identified as an unhealthy alcohol user Time with Patient: Less than 30
== END ==
LOC: PNWHC3 10:58
PROVIDERS: ATTEND Student in an Organized Health Care Education/Training Program
DX: M47.812 Spondylosis without myelopathy or radiculopathy, cervical region (principal); M96.1 Postlaminectomy syndrome, not elsewhere classified; M51.36 Other intervertebral disc degeneration, lumbar region; M47.816 Spondylosis without myelopathy or radiculopathy, lumbar region; M25.512 Pain in left shoulder; G89.29 Other chronic pain; F17.200 Nicotine dependence, unspecified, uncomplicated; Z79.891 Long term (current) use of opiate analgesic; Z91.048 Other nonmedicinal substance allergy status; Z88.1 Allergy status to other antibiotic agents; Z88.2 Allergy status to sulfonamides; Z91.041 Radiographic dye allergy status
CPT/HCPCS: 99211

== ENCOUNTER → 2021-11-17 | Outpatient (CLI) | payer OTHER ==
[2021-11-17 10:31] VITALS: BP 121/81; PULSE 100; RESP 18; TEMP 98
--- NOTE | 2021-11-17 15:57 | P.PN ---
Subjective Progress Note Date: 11/17/21 Principal diagnosis: A 51 yr old male with a history of severe and chronic low back pain secondary to lumbar degenerative disc diseases and lumbar spondylosis with facet arthropathy presents today for medication refills. Pain level is currently a 7 /10, dull, achy and throbbing in the lower back and at times shoots towards the bilateral lower extremities. He has tried to have procedures, but has received 3 denial letters from his insurance company. Pain is provoked by sitting, twisting and lifting. Pain is alleviated with medications, heat, physical therapy he completed 1 year ago, massage that was integrated with physical therapy sessions and a home based stretching program. Patient is currently on [place] 10/325mg #45, Lyrica 100mg #90 and Baclofen 10mg #90 Patient denies any side effects of the medication(s), denies excessive drowsiness or sleepiness, denies suicidal ideation and reports that the current pain medication is helping to control the pain and improve activities of daily living. Patient denies any motor or sensory deficits. Patient denies any fever or night sweats, denies any change in the bowel movements or urination. Physical Examination: -Constitutional: Cooperative. Not in acute distress . -HEENT: Neck is supple. No lymphadenopathy. No thyromegaly. Normal thyroid size. Eyes: No ptosis , no icterus, no photophobia. ENT: No auditory deficits. Normal oropharynx. No Thrush. - Respiratory: Chest clear to auscultations bilaterally. No wheezing. No rhonchi. - Cardiovascular: Regular rate and rhythm. S1 / S2 , no S3 , no S4. - Gastrointestinal: Abdomen soft no tenderness. Bowel sounds positive in all four quadrants. No organomegaly. - Genitourinary: Deferred. - Neurologic: Cranial nerve II to XII intact. No focal neurological deficits. - Psychatric: Alert & oriented x 3. Matching mood & appropriate affect. Judgment and insight intact. - Lymphatic: No Lymphadenopathy. - Musculoskeletal: Cervical spine: Muscle bulk/ tone/ strength in the bilateral upper extremities normal. Facet loading test cervical area positive. Lumbar spine: Motor bulk/ tone/ strength lower extremities , thigh and legs : 5/5 Deep tendon reflexes : Normal Knee Jerk. Normal Ankle Jerk . Lumbar Facet Loading Test positive Straight Leg Raise: positive at 30 degree right side/ left side Abebe test: positive right side / left side Range of motion: Flexion of the lumbar spine 60 degrees Range of motion: Extension of the lumbar spine <20 degrees Severe tenderness over the Sacroiliac joint: right side / left side Assessment and plan: Chronic low back pain secondary to lumbar degenerative disc disease , lumbar spondylosis with facet arthropathy without myelopathy Medication refills for [place] 7.5 /325mg BID prn #45 with one refill and Lyrica 100mg BID #60 with refill and Baclofen 10mg TID #90 with refill Chronic and current use of high-risk medication (Opioids). The patient was counseled about risk of opioid use, psychological risk associated with opioids and was orally counseled to not overuse , divert or sell medications. Pt is to store medication in a safe location. The patient is counseled against driving while using narcotic medications and also not to use alcohol or any illicit recreational drugs. Patient verbalized understanding that the lack of compliance will result in failure to renew narcotic prescription(s) as well as possible discharge from the clinic Diagnoses, prognosis and treatment options including but not limited to physical therapy, surgical interventions, interventional therapies and medication management including narcotics and adjuvant medication were discussed. All patient questions answered UDS reviewed and was consistent MAPS reviewed and it was appropriate. I have spent 31 minutes on patient care today. Dr Cullen was available by phone for the evaluation of this patient. The time was used to review the medical records including relevant urine studies and Prescription history (MAPs), review of the available imaging, evaluation and examination of the patient, coordination of care with the medical staff and if applicable referring physicians, as well as creation of the medical record Objective - Vital Signs Vital signs: Vital Signs Temp 98.0 F 11/17/21 10:15 Pulse 100 11/17/21 10:15 Resp 18 11/17/21 10:15 BP 121/81 11/17/21 10:15 Pulse Ox 94 L 11/17/21 10:15 PQRS Measure Charge Sheet Mode of Arrival: Ambulatory - Pain Location Back Non-Pharmacological Interventions: Inactivity Pharmacological Interventions: PRN Medication Left Shoulder Non-Pharmacological Interventions: Heat, Inactivity Pharmacological Interventions: PRN Medication PQRS Narrative: Smoking Status Current every day smoker Narcotic Agreement Date Signed 07/28/21 Blood Pressure 121/81 Pain Intensity [Left Shoulder] 7 Pain Intensity [Back] 7 Scale Used Numeric (1 - 10) Hx Alcohol Use (MH) No Home Medications: Ambulatory Orders DULoxetine HCL [Cymbalta] 60 mg PO HS 12/31/14 Tamsulosin HCl [Flomax] 0.4 mg PO HS 12/31/14 Levothyroxine Sodium [Synthroid] 88 mcg PO DAILY 11/17/18 Testosterone Cypionate [Depo-Testosterone] 200 mg IM Q14D 11/17/18 metFORMIN HCL [Glucophage] 1,000 mg PO BID 11/17/18 traZODone HCL 100 mg PO HS 11/17/18 Cariprazine HCl [Vraylar] 1.5 mg PO DAILY 11/21/19 Clopidogrel [Plavix] 75 mg PO DAILY 04/02/20 Fenofibrate [Lofibra] 54 mg PO HS 04/30/20 Cyanocobalamin [Vitamin B-12] 1,000 mcg PO DAILY #30 tab 11/22/20 Folic Acid 1 mg PO DAILY #30 tab 11/22/20 Dicyclomine HCl 20 mg PO QID 01/06/21 Meclizine [Antivert] 25 mg PO BID PRN 01/06/21 Metoprolol Tartrate [Lopressor] 100 mg PO BID 02/04/21 buPROPion XL [Wellbutrin XL] 150 mg PO DAILY 02/04/21 Atorvastatin [Lipitor] 10 mg PO HS 03/07/21 LORazepam [Ativan] 0.5 mg PO BID PRN 03/07/21 Acetaminophen Tab [Tylenol] 650 mg PO Q6HR PRN tab 03/10/21 Aspirin 81 mg PO DAILY 30 Days #30 chew 03/10/21 amLODIPine [Norvasc] 5 mg PO DAILY 30 Days #30 tab 03/10/21 hydrALAZINE HCL [Apresoline] 50 mg PO BID 30 Days #60 tab 03/10/21 Torsemide [Demadex] 40 mg PO DAILY 05/29/21 Allopurinol [Zyloprim] 100 mg PO DAILY 06/02/21 Potassium Chloride ER [K-Dur 20] 20 meq PO TID 06/02/21 Albuterol Inhaler [Ventolin Hfa Inhaler] 2 puff INHALATION RT-QID PRN 11/13/21 Diclofenac Sodium Gel [Voltaren Gel] 4 gm TOPICAL QID PRN 01/13/22 Ferrous Sulfate [Feosol] 650 mg PO DAILY 11/13/21 Semaglutide [Ozempic] 0.5 mg SQ MO 11/13/21 Baclofen 10 mg PO TID PRN 30 Days #90 tab 11/17/21 HYDROcodone/APAP 10-325MG [[place] 10-325] 1 tab PO BID PRN #45 tab 11/17/21 HYDROcodone/APAP 10-325MG [[place] 10-325] 1 tab PO Q12H PRN 30 Days #45 tab 11/17/21 Pregabalin [Lyrica] 100 mg PO TID 30 Days #90 cap 11/17/21
== END ==
LOC: PNWHC3 09:54
PROVIDERS: ATTEND Physician Assistant Medical
DX: M51.36 Other intervertebral disc degeneration, lumbar region (principal); M47.816 Spondylosis without myelopathy or radiculopathy, lumbar region; G89.29 Other chronic pain; F17.200 Nicotine dependence, unspecified, uncomplicated; Z79.891 Long term (current) use of opiate analgesic; Z91.048 Other nonmedicinal substance allergy status; Z88.1 Allergy status to other antibiotic agents; Z91.041 Radiographic dye allergy status; Z88.2 Allergy status to sulfonamides
CPT/HCPCS: 99211

== ENCOUNTER → 2021-11-21 | Outpatient (CLI) | payer OTHER ==
--- NOTE | 2021-11-21 15:43 | US ---
EXAMINATION TYPE: US kidneys/renal and bladder DATE OF EXAM: 11/21/2021 COMPARISON: CT abdomen and pelvis October 28, 2020 CLINICAL HISTORY: N18.31 Chronic kidney disease. EXAM MEASUREMENTS: Right Kidney: 11.7 x 5.4 x 4.7 cm Left Kidney: 11.0 x 4.5 x 4.7 cm Post Void Residual Volume: 12.6 mL Right Kidney: septated cyst measuring 2.0 x 2.0 x 1.7cm Left Kidney: No hydronephrosis or masses seen Bladder: possible dependant debris vs mass Bilateral Jets seen: Yes Normal Post Void Residual: Yes When scanning the right kidney adjacent liver is heterogeneously hyperechoic. The lower pole of the r ight kidney there is 2.0 cm thin-walled cyst with septation that has slight thickening or nodularity. Nonemergent follow-up advised. Bladder satisfactorily distended. Bilateral distal ureter jets are seen. Mild prominence of the prost ate felt bulging into bladder base. Tiny amount of residual urine after voiding noted. No left-sided hydronephrosis. No concerning masses. IMPRESSION: No hydronephrosis seen bilaterally. There is nonsimple 2.0 cm thin-walled cystic lesion m id to lower pole right kidney. Advise renal protocol contrast-enhanced CT or MRI follow-up to further evaluate and exclude Bosniak type III lesion.
== END | disposition home or self-care (01) ==
LOC: RADUSWWP 14:55
PROVIDERS: ATTEND Internal Medicine Nephrology
DX: N18.31 Chronic kidney disease, stage 3a (principal)
CPT/HCPCS: 76770

== ENCOUNTER → 2022-01-12 | Outpatient (CLI) | payer OTHER ==
[2022-01-12 11:00] VITALS: BP 116/73; PULSE 91; RESP 18; TEMP 97.6
--- NOTE | 2022-01-12 11:03 | P.PN ---
Subjective Progress Note Date: 01/12/22 Principal diagnosis: A 51 yr old male with a history of severe and chronic low back pain secondary to lumbar degenerative disc diseases and lumbar spondylosis with facet arthropathy presents today for dictation refills. Patient states he has lower back pain that radiates to his lower extremities and neck pain that radiates to his right shoulder. He also complains of crepitus with rotation of cervical spine. Patient states his lower back pain 7 out of 10 intensity, constant, achy, throbbing in the lower aspects without provocation. Pain is alleviated with educations, injections, alternating ice and heat, physical therapy completed on 03/21, home exercise regimen as tolerated, stretching and rest. Interventional pain procedures completed include FB of the Medial Branches Lumbar region Patient is currently on [place] 10/325mg #45, Lyrica 100mg #90, Baclofen 10mg #900 Patient denies any side effects of the medication(s), denies excessive drowsiness or sleepiness, denies suicidal ideation and reports that the current pain medication is helping to control the pain and improve activities of daily living. Patient denies any motor or sensory deficits. Patient denies any fever or night sweats, denies any change in the bowel movements or urination. Physical Examination: -Constitutional: Cooperative. Not in acute distress . -HEENT: Neck is supple. No lymphadenopathy. No thyromegaly. Normal thyroid size. Eyes: No ptosis , no icterus, no photophobia. ENT: No auditory deficits. Normal oropharynx. No Thrush. - Respiratory: Chest clear to auscultations bilaterally. No wheezing. No rhonchi. - Cardiovascular: Regular rate and rhythm. S1 / S2 , no S3 , no S4. - Gastrointestinal: Abdomen soft no tenderness. Bowel sounds positive in all four quadrants. No organomegaly. - Genitourinary: Deferred. - Neurologic: Cranial nerve II to XII intact. No focal neurological deficits. - Psychatric: Alert & oriented x 3. Matching mood & appropriate affect. Judgment and insight intact. - Lymphatic: No Lymphadenopathy. - Musculoskeletal: Cervical spine: Muscle bulk/ tone/ strength in the bilateral upper extremities normal. Spurling test positive. Distraction test positive. Facet loading test cervical area positive. Lumbar spine: Motor bulk/ tone/ strength lower extremities , thigh and legs : 5/5 Deep tendon reflexes : Normal Knee Jerk. Normal Ankle Jerk . Vertebral body tenderness to palpation over L4, L5 Lumbar Facet Loading Test positive Straight Leg Raise: positive at 30 degrees right side/ left side Gaenslen's Test positive Sacral spine : Severe tenderness over the Sacroiliac joint: right side / left side Range of motion: Flexion of the lumbar spine <60 degrees Range of motion: Extension of the lumbar spine <20 degrees Gaenslen's Test positive Abebe test: positive right side / left side Assessment and plan: Chronic low back pain secondary to lumbar degenerative disc disease , lumbar spondylosis with facet arthropathy without myelopathy Chronic and current use of high-risk medication (Opioids). The patient was counseled about risk of opioid use, psychological risk associated with opioids and was orally counseled to not overuse , divert or sell medications. Pt is to store medication in a safe location. The patient is counseled against driving while using narcotic medications and also not to use alcohol or any illicit recreational drugs. Patient verbalized understanding that the lack of compliance will result in failure to renew narcotic prescription(s) as well as possible discharge from the clinic Diagnoses, prognosis and treatment options including but not limited to physical therapy, surgical interventions, interventional therapies and medication management including narcotics and adjuvant medication were discussed. All patient questions answered MAPS reviewed and it was appropriate. Urine for UDS collected today. Opiate agreement up to date. Prescriptions for Tylenol #3 #45 with 1 refill, Lyrica 100mg #90 with 1 refill, Baclofen 10mg #90 with 1 refill. Discontinue [place]. I have spent 31 minutes on patient care today. Dr Cullen was available by phone for the evaluation of this patient. The time was used to review the medical records including relevant urine studies and Prescription history (MAPs), review of the available imaging, evaluation and examination of the patient, coordination of care with the medical staff and if applicable referring physicians, as well as creation of the medical record Objective - Vital Signs Vital signs: Intake & Output 01/11/22 01/12/22 01/12/22 18:59 06:59 18:59 Weight 89.811 kg PQRS Measure Charge Sheet Mode of Arrival: Ambulatory PQRS Narrative: Smoking Status Current every day smoker Narcotic Agreement Date Signed 07/28/21 Blood Pressure 116/73 Pain Intensity [Lower Back] 7 Scale Used Numeric (1 - 10) Hx Alcohol Use (MH) No Home Medications: Ambulatory Orders DULoxetine HCL [Cymbalta] 60 mg PO HS 12/31/14 Tamsulosin HCl [Flomax] 0.4 mg PO HS 12/31/14 Levothyroxine Sodium [Synthroid] 88 mcg PO DAILY 11/17/18 Testosterone Cypionate [Depo-Testosterone] 200 mg IM Q14D 11/17/18 metFORMIN HCL [Glucophage] 1,000 mg PO BID 11/17/18 traZODone HCL 100 mg PO HS 11/17/18 Cariprazine HCl [Vraylar] 1.5 mg PO DAILY 11/21/19 Clopidogrel [Plavix] 75 mg PO DAILY 04/02/20 Fenofibrate [Lofibra] 54 mg PO HS 04/30/20 Cyanocobalamin [Vitamin B-12] 1,000 mcg PO DAILY #30 tab 11/22/20 Folic Acid 1 mg PO DAILY #30 tab 11/22/20 Dicyclomine HCl 20 mg PO QID 01/06/21 Meclizine [Antivert] 25 mg PO BID PRN 01/06/21 Metoprolol Tartrate [Lopressor] 100 mg PO BID 02/04/21 buPROPion XL [Wellbutrin XL] 150 mg PO DAILY 02/04/21 Atorvastatin [Lipitor] 10 mg PO HS 03/07/21 LORazepam [Ativan] 0.5 mg PO BID PRN 03/07/21 Aspirin 81 mg PO DAILY 30 Days #30 chew 03/10/21 amLODIPine [Norvasc] 5 mg PO DAILY 30 Days #30 tab 03/10/21 hydrALAZINE HCL [Apresoline] 50 mg PO BID 30 Days #60 tab 03/10/21 Torsemide [Demadex] 40 mg PO DAILY 05/29/21 Allopurinol [Zyloprim] 100 mg PO DAILY 06/02/21 Potassium Chloride ER [K-Dur 20] 20 meq PO TID 06/02/21 Albuterol Inhaler [Ventolin Hfa Inhaler] 2 puff INHALATION RT-QID PRN 11/13/21 Diclofenac Sodium Gel [Voltaren Gel] 4 gm TOPICAL QID PRN 11/13/21 Ferrous Sulfate [Feosol] 650 mg PO DAILY 11/13/21 Semaglutide [Ozempic] 0.5 mg SQ MO 11/13/21 Baclofen 10 mg PO TID PRN 30 Days #90 tab 11/17/21 Pregabalin [Lyrica] 100 mg PO TID 30 Days #90 cap 11/17/21 Acetaminophen-Codeine 300-30mg [Tylenol w/codeine #3] 1 tab PO Q12H PRN 30 Days #45 tablet 01/12/22
== END ==
LOC: PNWHC3 10:37
PROVIDERS: ATTEND Physician Assistant Medical
DX: M51.36 Other intervertebral disc degeneration, lumbar region (principal); M47.816 Spondylosis without myelopathy or radiculopathy, lumbar region; Z79.891 Long term (current) use of opiate analgesic; F17.200 Nicotine dependence, unspecified, uncomplicated; G89.29 Other chronic pain; Z91.048 Other nonmedicinal substance allergy status; Z88.1 Allergy status to other antibiotic agents; Z91.041 Radiographic dye allergy status; Z88.2 Allergy status to sulfonamides; Z88.5 Allergy status to narcotic agent; Z88.8 Allergy status to other drugs, medicaments and biological substances
CPT/HCPCS: 80307; G0482; G0463; 99211

== ENCOUNTER → 2022-03-03 | Outpatient (CLI) | payer OTHER ==
--- NOTE | 2022-03-04 05:08 | MR ---
EXAMINATION TYPE: MR abdomen wo/w con DATE OF EXAM: 03/03/2022 COMPARISON: Ultrasound 11/21/2021 HISTORY: Renal Cyst on Ultrasound CONTRAST: Standard multiplanar, multisequence MRI departmental protocol images were obtained without contrast a nd with 9 mL intravenous Gadavist gadolinium contrast. Liver shows no focal defect. The bile ducts are not dilated. There is no evidence of pleural effusion . No sign of pericardial effusion. Heart size is normal. Spleen is intact. There is no pancreatic mas s. Pancreatic duct is not dilated. Stomach is intact. There is no adrenal mass. There is 2.5 cm mixed signal lesion on the anterior lower pole right kidney . This has low signal on T1 images and does not show enhancement. There is no hydronephrosis. There i s no evidence of retroperitoneal adenopathy. There is no ascites. IMPRESSION: Nonenhancing rounded lesion in the lower pole anterior cortex right kidney which is most likely an at ypical cyst. This measures slightly larger than the previous ultrasound exam. The lesion is not marroquin ed in size compared to the old CT scan of 10/28/2020 and is suggestive of benign etiology.
== END | disposition home or self-care (01) ==
LOC: RADMRIMAIN 12:11
PROVIDERS: ATTEND Urology
DX: N28.89 Other specified disorders of kidney and ureter (principal)
CPT/HCPCS: 74183; A9585

== ENCOUNTER → 2022-03-31 | Outpatient (CLI) | payer OTHER ==
--- NOTE | 2022-03-31 13:33 | XR ---
EXAMINATION TYPE: XR finger RT DATE OF EXAM: 03/31/2022 COMPARISON: NONE HISTORY: 51-year-old male [id number], right middle finger pain. TECHNIQUE: 2 views coned-down right third digit FINDINGS: Joint spaces are maintained. No acute fracture, subluxation, or dislocation. No periostitis or osteolysis. IMPRESSION: Right hand third digit without acute osseous abnormality seen.
== END | disposition home or self-care (01) ==
LOC: RADXRYALE 11:34
PROVIDERS: ATTEND Physician Assistant Medical
DX: M79.644 Pain in right finger(s) (principal)

== ENCOUNTER → 2022-04-13 | Outpatient (CLI) | payer OTHER ==
[2022-04-13 11:28] VITALS: BP 109/78; PULSE 91; RESP 18; TEMP 98.1
--- NOTE | 2022-04-13 11:29 | P.PAINPG ---
PQRS Measure Charge Sheet Comment: A 51 yr old male with a history of severe and chronic low back pain secondary to lumbar degenerative disc diseases and lumbar spondylosis with facet arthropathy presents today for generalized pain status post fall from 30 feet in 1997. Pain level is generalized but mostly localized in the lower back, 7 ou t of 10 in intensity, stabbing, shooting pain without radiation to the extremities. Pain is provoked with bending, lifting and other forms of activity. Pain is relieved with medications, ice, heat, physical therapy 1 year ago, laying supine and rest. Patient is currently on Tylenol No. 3, Lyrica, aclofen, Tylenol OTC. Patient denies any side effects of the medication(s), denies excessive drow siness or sleepiness, denies suicidal ideation and reports that the current pain medication is helping to control the pain and improve activities of daily living. Patient denies any motor or sensory deficits. Patient denies any fever or night sweats, denies any change in the bowel movements or urination. Physical Examination: -Constitutional: Cooperative. Not in acute distress . -HEENT: Neck is supple. No lymphadenopathy. No thyromegaly. Normal thyroid size. Eyes: No ptosis , no icterus, no photophobia. ENT: No auditory deficits. Normal oropharynx. No Thrush. - Respiratory: Chest clear to auscultations bilaterally. No wheezing. No rhonchi. - Cardiovascular: Regular rate and rhythm. S1 / S2 , no S3 , no S4. - Gastrointestinal: Abdomen soft no tenderness. Bowel sounds positive in all four quadrants. No organomegaly. - Genitourinary: Deferred. - Neurologic: Cranial nerve II to XII intact. No focal neurological deficits. - Psychatric: Alert & oriented x 3. Matching mood & appropriate affect. Judgment and insight intact. - Lymphatic: No Lymphadenopathy. - Musculoskeletal: Cervical spine: Muscle bulk/ tone/ strength in the bilateral upper extremities normal Vertebral body tenderness to palpation over Facet loading test positive Thoracic spine Muscle bulk / tone/ strength in the bilateral paraspinal muscles normal Vertebral body tender to palpation over Facet loading test positive Lumbar spine: Motor bulk/ tone/ strength lower extremities , thigh and legs : 5/5 Deep tendon reflexes : Normal Knee Jerk. Normal Ankle Jerk . Vertebral body tenderness to palpation over L4, L5 Lumbar Facet Loading Test positive Straight Leg Raise: positive at 30 degrees right side/ left side Gaenslen's Test positive Sacral spine : Severe tenderness over the Sacroiliac joint: right side / left side Range of motion: Flexion of the lumbar spine <60 degrees Range of motion: Extension of the lumbar spine <20 degrees Gaenslen's Test positive Colin's Test positive Abebe test: positive right side / left side Thigh Thrust Test Sacral Thrust Test Assessment and plan: Chronic low back pain secondary to lumbar degenerative disc disease , lumbar spondylosis with facet arthropathy without myelopathy Chronic and current use of high-risk medication (Opioids). The patient was counseled about risk of opioid use, psychological risk associated with opioids and was orally counseled to not overuse , divert or sell medications. Pt is to store medication in a safe location. The patient is counseled against driving while using narcotic medications and also not to use alcohol or any illicit recreational drugs. Patient verbalized understanding that the lack of compliance will result in failure to renew narcotic prescription(s) as well as possible discharge from the clinic Diagnoses, prognosis and treatment options including but not limited to physical therapy, surgical interventions, interventional therapies and medication management including narcotics and adjuvant medication were discussed. All patient questions answered MAPS reviewed and it was appropriate. UDS from January 2022 reviewed and consistent. Pt has been prescribed Lorazepam from his psychologist in 2020 to take on an as needed basis. Prescription refill for Tyl #3 w refill, Lyrica w refill, Baclofen 10mg w refill. I have spent 31 minutes on patient care today. Dr Cullen was available by phone for the evaluation of this patient. The time was used to review the medic al records including relevant urine studies and Prescription history (MAPs), review of the available imaging, evaluation and examination of the patient, coordination of care with the medical staff and if applicable referring physicians, as well as creation of the medical record PQRS Narrative: Smoking Status Current every day smoker Narcotic Agreement Date Signed 07/28/21 Hx Alcohol Use (MH) No Home Medications: Ambulatory Orders DULoxetine HCL [Cymbalta] 60 mg PO HS 12/31/14 Tamsulosin HCl [Flomax] 0.4 mg PO HS 12/31/14 Levothyroxine Sodium [Synthroid] 88 mcg PO DAILY 11/17/18 Testosterone Cypionate [Depo-Testosterone] 200 mg IM Q14D 11/17/18 metFORMIN HCL [Glucophage] 1,000 mg PO BID 11/17/18 traZODone HCL 100 mg PO HS 11/17/18 Cariprazine HCl [Vraylar] 1.5 mg PO DAILY 11/21/19 Clopidogrel [Plavix] 75 mg PO DAILY 04/02/20 Fenofibrate [Lofibra] 54 mg PO HS 04/30/20 Cyanocobalamin [Vitamin B-12] 1,000 mcg PO DAILY #30 tab 11/22/20 Folic Acid 1 mg PO DAILY #30 tab 11/22/20 Dicyclomine HCl 20 mg PO QID 01/06/21 Meclizine [Antivert] 25 mg PO BID PRN 01/06/21 Metoprolol Tartrate [Lopressor] 100 mg PO BID 02/04/21 buPROPion XL [Wellbutrin XL] 150 mg PO DAILY 02/04/21 Atorvastatin [Lipitor] 10 mg PO HS 03/07/21 LORazepam [Ativan] 0.5 mg PO BID PRN 03/07/21 Aspirin 81 mg PO DAILY 30 Days #30 chew 03/10/21 amLODIPine [Norvasc] 5 mg PO DAILY 30 Days #30 tab 03/10/21 hydrALAZINE HCL [Apresoline] 50 mg PO BID 30 Days #60 tab 03/10/21 Torsemide [Demadex] 40 mg PO DAILY 05/29/21 Allopurinol [Zyloprim] 100 mg PO DAILY 06/02/21 Potassium Chloride ER [K-Dur 20] 20 meq PO TID 06/02/21 Albuterol Inhaler [Ventolin Hfa Inhaler] 2 puff INHALATION RT-QID PRN 11/13/21 Diclofenac Sodium Gel [Voltaren Gel] 4 gm TOPICAL QID PRN 11/13/21 Ferrous Sulfate [Feosol] 650 mg PO DAILY 11/13/21 Semaglutide [Ozempic] 0.5 mg SQ MO 11/13/21 Acetaminophen-Codeine 300-30mg [Tylenol w/codeine #3] 1 tab PO Q12H PRN 30 Days #45 tablet 03/20/22 Pregabalin [Lyrica] 100 mg PO TID 30 Days #90 cap 03/20/22 Acetaminophen-Codeine 300-30mg [Tylenol w/codeine #3] 1 tab PO Q12H PRN 30 Days #45 tablet 04/13/22 Baclofen [Lioresal] 10 mg PO TID 30 Days #90 tablet 04/13/22 Pregabalin [Lyrica] 100 mg PO TID 30 Days #90 cap 04/13/22 Controlled Substance Measures - Controlled Substance Measures Is patient prescribed a controlled substance at discharge?: Yes When asked, does pt state using other controlled substances?: Yes If prescribed controlled substance>3 days was MAPS reviewed?: Yes If Rx opioid, was Start Talking consent form obtained?: Yes If opioid is for acute pain is fill amount 7 days or less?: Yes Was information provided regarding opioid addiction?: Yes
== END ==
LOC: PNWHC3 11:05
PROVIDERS: ATTEND Specialist
DX: M51.36 Other intervertebral disc degeneration, lumbar region (principal); M47.816 Spondylosis without myelopathy or radiculopathy, lumbar region; G89.29 Other chronic pain; Z79.891 Long term (current) use of opiate analgesic; F17.200 Nicotine dependence, unspecified, uncomplicated; Z91.048 Other nonmedicinal substance allergy status; Z88.1 Allergy status to other antibiotic agents; Z91.041 Radiographic dye allergy status; Z88.2 Allergy status to sulfonamides
CPT/HCPCS: 99211

== ENCOUNTER → 2022-04-20 | Outpatient (CLI) | payer OTHER ==
--- NOTE | 2022-04-21 07:06 | XR ---
EXAMINATION TYPE: XR knee complete LT DATE OF EXAM: 04/20/2022 COMPARISON: NONE HISTORY: Pain TECHNIQUE: Three views are submitted. FINDINGS: There is narrowing of the medial compartment of the knee joint with hypertrophic spurring. Small amou nt of fluid in the suprapatellar bursa.. Osseous structures are intact. No acute fracture seen. IMPRESSION: 1. No acute fracture or dislocation. 2. Mild osteoarthritis. There is a small amount of fluid in the suprapatellar bursa which can occasio renan be associated with internal derangement of the knee. Correlate with MRI as clinically warranted .
== END | disposition home or self-care (01) ==
LOC: RADXRYALE 15:53
PROVIDERS: ATTEND Physician Assistant Medical
DX: M17.12 Unilateral primary osteoarthritis, left knee (principal)

== ENCOUNTER 2022-06-05 18:52 | Emergency (ER) | payer OTHER ==
[2022-06-05 18:57] LABS: Glucose,Whole Blood 315 mg/dL (70-110)
[2022-06-05] MEDS ORDERED: SODIUM CHLORIDE 0.9% 1,000 ML IV STA (19:25)
--- NOTE | 2022-06-05 19:49 | ED ---
General Adult HPI - General Chief complaint: Recheck/Abnormal Lab/Rx Stated complaint: elevated bp and blood sugar Time Seen by Provider: 06/05/22 19:25 Source: patient Mode of arrival: ambulatory Limitations: no limitations - History of Present Illness Initial comments: Dictation was produced using [employer] dictation software. please excuse any gram matical, word or spelling errors. Chief Complaint: 51-year-old male presents with hyperglycemia History of Present Illness: 51-year-old male past medical history of insulin- dependent diabetes mellitus. Patient has had diabetes for the last several months. Patient has been monitoring his blood sugars found to be high to the 400s. Patient had a conversation with his primary care doctor and was instructed to come to the emergency department. Patient also complains of some mild urinary retention. Patient has no other complaints at this time. The ROS documented in this emergency department record has been reviewed and confirmed by me. Those systems with pertinent positive or negative responses have been documented in the HPI. All other systems are other negative and/or n oncontributory. PHYSICAL EXAM: General Impression: Alert and oriented x3, not in acute distress HEENT: Normocephalic atraumatic, extra-ocular movements intact, pupils equal and reactive to light bilaterally, mucous membranes moist. Cardiovascular: Heart regular rate and rhythm Chest: Able to complete full sentences, no retractions, no tachypnea Abdomen: abdomen soft, non-tender, non-distended, no organomegaly Musculoskeletal: Pulses present and equal in all extremities, no peripheral edema Motor: no focal deficits noted Neurological: CN II-XII grossly intact, no focal motor or sensory deficits noted Skin: Intact with no visualized rashes Psych: Normal affect and mood ED course: 51-year-old male presents emergency department for hyperglycemia. Vital signs upon arrival are within acceptable limits. Point of care blood glucose is 3:15. Patient not showing mental status changes. Does not smell of acetone. Laboratory evaluation obtained. Potassium 3.2. No acidosis. Rate is 1.9. Glucose 127. Patient reevaluated at bedside at 10:15 PM found to be in stable medical condition. Patient given outpatient referral to endocrinology for management of diabetes. - Related Data Home Medications Medication Instructions Recorded Confirmed DULoxetine HCL [Cymbalta] 60 mg PO HS 12/31/14 04/13/22 Tamsulosin HCl [Flomax] 0.4 mg PO HS 12/31/14 04/13/22 Levothyroxine Sodium [Synthroid] 88 mcg PO DAILY 11/17/18 04/13/22 Testosterone Cypionate 200 mg IM Q14D 11/17/18 04/13/22 [Depo-Testosterone] metFORMIN HCL [Glucophage] 1,000 mg PO BID 11/17/18 04/13/22 traZODone HCL 100 mg PO HS 11/17/18 04/13/22 Cariprazine HCl [Vraylar] 1.5 mg PO DAILY 11/21/19 04/13/22 Clopidogrel [Plavix] 75 mg PO DAILY 04/02/20 04/13/22 Fenofibrate [Lofibra] 54 mg PO HS 04/30/20 04/13/22 Dicyclomine HCl 20 mg PO QID 01/06/21 04/13/22 Meclizine [Antivert] 25 mg PO BID PRN 01/06/21 04/13/22 Metoprolol Tartrate [Lopressor] 100 mg PO BID 02/04/21 04/13/22 buPROPion XL [Wellbutrin XL] 150 mg PO DAILY 02/04/21 04/13/22 Atorvastatin [Lipitor] 10 mg PO HS 03/07/21 04/13/22 LORazepam [Ativan] 0.5 mg PO BID PRN 03/07/21 04/13/22 Torsemide [Demadex] 40 mg PO DAILY 05/29/21 04/13/22 Potassium Chloride ER [K-Dur 20] 20 meq PO TID 06/02/21 04/13/22 allopurinoL [Zyloprim] 100 mg PO DAILY 06/02/21 04/13/22 Albuterol Inhaler [Ventolin Hfa 2 puff INHALATION RT-QID PRN 11/13/21 04/13/22 Inhaler] Diclofenac Sodium Gel [Voltaren 4 gm TOPICAL QID PRN 11/13/21 04/13/22 Gel] Ferrous Sulfate [Feosol] 650 mg PO DAILY 11/13/21 04/13/22 Semaglutide [Ozempic] 0.5 mg SQ MO 11/13/21 04/13/22 Previous Rx's Medication Instructions Recorded Cyanocobalamin [Vitamin B-12] 1,000 mcg PO DAILY #30 tab 11/22/20 Folic Acid 1 mg PO DAILY #30 tab 11/22/20 Aspirin 81 mg PO DAILY 30 Days #30 chew 03/10/21 amLODIPine [Norvasc] 5 mg PO DAILY 30 Days #30 tab 03/10/21 hydrALAZINE HCL [Apresoline] 50 mg PO BID 30 Days #60 tab 03/10/21 Acetaminophen-Codeine 300-30mg 1 tab PO Q12H PRN 30 Days #45 03/20/22 [Tylenol w/codeine #3] tablet Pregabalin [Lyrica] 100 mg PO TID 30 Days #90 cap 03/20/22 Acetaminophen-Codeine 300-30mg 1 tab PO Q12H PRN 30 Days #45 04/13/22 [Tylenol w/codeine #3] tablet Baclofen [Lioresal] 10 mg PO TID 30 Days #90 tablet 04/13/22 Pregabalin [Lyrica] 100 mg PO TID 30 Days #90 cap 04/13/22 Allergies Allergy/AdvReac Type Severity Reaction Status Date / Time adhesive tape Allergy Rash/Hives Verified 06/05/22 18:55 cefaclor [From Ceclor] Allergy Rash/Hives Verified 06/05/22 18:55 dapagliflozin [From Farxiga] Allergy yeast Verified 06/05/22 18:55 infections Iodinated Contrast Media Allergy Rash/Hives,throat Verified 06/05/22 18:55 [Iodinated Contrast Media - swelling IV Dye] propoxyphene napsylate Allergy Rash/Hives Verified 06/05/22 18:55 [From Darvocet-N 100] Sulfa (Sulfonamide Allergy Dyspnea Verified 06/05/22 18:55 Antibiotics) sulfamethoxazole Allergy Rapid Verified 06/05/22 18:55 [From Bactrim] Heart Rate trimethoprim [From Bactrim] Allergy Rapid Verified 06/05/22 18:55 Heart Rate Review of Systems ROS Statement: Those systems with pertinent positive or pertinent negative responses have been documented in the HPI. ROS Other: All systems not noted in ROS Statement are negative. Past Medical History Past Medical History: Asthma, Cancer, Chest Pain / Angina, Heart Failure, CVA/TIA, Diabetes Mellitus, Eye Disorder, GERD/Reflux, Hypertension, Liver Disease, Musculoskeletal Disorder, Renal Disease, Skin Disorder, Vascular Dis order Additional Past Medical History / Comment(s): TMJ, sinus problems, eczema, kidney stones, diverticulitis, back pain w/ DDD, physical limitations. NT Bilat hands, BLE. Skin cancer. Hyperflexia; sl cataracts. CVA 11/2018, WBC level elev - sees Dr. Luna. Ankles, feet, legs, face swollen all the time. PVD. Kidney dx stage 3. Fatty liver. Torn meniscus lt knee. Has wort on uvula. History of Any Multi-Drug Resistant Organisms: None Reported Past Surgical History: Adenoidectomy, Hernia Repair, Orthopedic Surgery, Tonsi llectomy Additional Past Surgical History / Comment(s): Neck fusion, colonoscopy, left knee arthroscopy, Lt foot, bilat CTR, PAIN CLINIC INJECTIONS, BILAT CUBITAL SX ON ELBOWS, EGD, Past Anesthesia/Blood Transfusion Reactions: No Reported Reaction Past Psychological History: Anxiety, Depression Smoking Status: Former smoker Past Alcohol Use History: None Reported Past Drug Use History: None Reported - Past Family History Mother Family Medical History: Cancer Father Family Medical History: Cancer General Exam Limitations: no limitations Course Vital Signs 06/05/22 18:53 Temperature 98.1 F Pulse Rate 109 H Respiratory 20 Rate Blood Pressure 144/88 O2 Sat by Pulse 96 Oximetry Medical Decision Making - Lab Data Result diagrams: 06/05/22 21:42 Lab Results 06/05/22 06/05/22 Range/Units 18:55 21:42 Sodium 136 L (137-145) mmol/L Potassium 3.2 L (3.5-5.1) mmol/L Chloride 88 L (98-107) mmol/L Carbon Dioxide 33 H (22-30) mmol/L Anion Gap 15 mmol/L BUN 19 (9-20) mg/dL Creatinine 1.90 H (0.66-1.25) mg/dL Est GFR (CKD-EPI)AfAm 46 (>60 ml/min/1.73 sqM) Est GFR (CKD-EPI)NonAf 40 (>60 ml/min/1.73 sqM) Glucose 127 H (74-99) mg/dL POC Glucose (mg/dL) 315 H (70-110) mg/dL POC Glu Clearance Coordinator ID Willing, Cathy Calcium 10.6 H (8.4-10.2) mg/dL Total Bilirubin 0.4 (0.2-1.3) mg/dL AST 52 (17-59) U/L ALT 43 (4-49) U/L Alkaline Phosphatase 66 (38-126) U/L Total Protein 8.0 (6.3-8.2) g/dL Albumin 5.1 H (3.5-5.0) g/dL Disposition Clinical Impression: Hyperglycemia Disposition: HOME SELF-CARE Condition: Good Instructions (If sedation given, give patient instructions): Diabetic Hyperglycemia (ED) Is patient prescribed a controlled substance at d/c from ED?: No Referrals: Kelsy Bergeron MD [STAFF PHYSICIAN] - 1-2 days Time of Disposition: 22:14
[2022-06-05 22:04] LABS: Albumin 5.1 g/dL (3.5-5.0); Calcium 10.6 mg/dL (8.4-10.2); Potassium 3.2 mmol/L (3.5-5.1); Total Bilirubin 0.4 mg/dL (0.2-1.3)
[2022-06-05 22:45] VITALS: BP 132/90; PULSE 85; RESP 16; TEMP 98.6
== END 2022-06-05 22:42 | disposition home or self-care (01) ==
LOC: EC 18:52
DX: R73.9 Hyperglycemia, unspecified (principal); J45.909 Unspecified asthma, uncomplicated; I11.0 Hypertensive heart disease with heart failure; Z86.73 Personal history of transient ischemic attack (TIA), and cerebral infarction without residual deficits; K21.9 Gastro-esophageal reflux disease without esophagitis; Z79.83 Long term (current) use of bisphosphonates; Z87.891 Personal history of nicotine dependence; Z91.048 Other nonmedicinal substance allergy status; Z88.8 Allergy status to other drugs, medicaments and biological substances; Z91.041 Radiographic dye allergy status; Z88.6 Allergy status to analgesic agent
CPT/HCPCS: 36415; 80053

== ENCOUNTER → 2022-06-08 | Outpatient (CLI) | payer OTHER ==
[2022-06-08 11:19] VITALS: BP 123/73; PULSE 100; RESP 18; TEMP 98.2
--- NOTE | 2022-06-08 14:20 | P.PAINPG ---
PQRS Measure Charge Sheet Comment: A 51 yr old male with a history of severe and chronic low back pain secondary to lumbar degenerative disc diseases and lumbar spondylosis with facet arthropathy presents today for medication refills. Pain level is 8/10 in intensity, constant, achy & burning in character in the lower aspect of the lumbar spine w radiation of burning pain towards the BLEs. Pain is provoked by weight bearing activities. Pain was not improved with PT in 2020, but found slight alleviation of pain with heat, ice, medications (Tyl #3, Lyrica, Baclofen), repositioning and rest. Patient is currently on Tyl #3, Lyrica, Baclofen Patient denies any side effects of the medication(s), denies excessive drowsiness or sleepiness, denies suicidal ideation and reports that the current pain medication is helping to control the pain and improve activities of daily living. Patient denies any motor or sensory deficits. Patient denies any fever or night sweats, denies any change in the bowel movements or urination. Physical Examination: -Constitutional: Cooperative. Not in acute distress . - Neurologic: Cranial nerve II to XII intact. No focal neurological deficits. - Psychatric: Alert & oriented x 3. Matching mood & appropriate affect. Judgment and insight intact. - Musculoskeletal: Cervical spine: Muscle bulk/ tone/ strength in the bilateral upper extremities normal Vertebral body tenderness to palpation over Spurling test positive Distraction test positive Facet loading test positive Thoracic spine Muscle bulk / tone/ strength in the bilateral paraspinal muscles normal Vertebral body tender to palpation over Facet loading test positive Lumbar spine: Motor bulk/ tone/ strength lower extremities , thigh and legs : 5/5 Deep tendon reflexes : Normal Knee Jerk. Normal Ankle Jerk . Vertebral body tenderness to palpation Lumbar Facet Loading Test positive over BL L4, L5, L5-S1 w jump reflex Straight Leg Raise: positive at 30 degrees right side/ left side Gaenslen's Test positive Sacral spine : Severe tenderness over the Sacroiliac joint: right side / left side Range of motion: Flexion of the lumbar spine <60 degrees Range of motion: Extension of the lumbar spine <20 degrees Gaenslen's Test positive Colin's Test positive Abebe test: positive right side / left side Thigh Thrust Test Sacral Thrust Test Assessment and plan: Chronic low back pain secondary to lumbar degenerative disc disease , lumbar spondylosis with facet arthropathy without myelopathy Recommendation of BL RFA L4-L5, L5-S1. Pt states he tried PT for his lumbar spine in 2020 but was discontinued by the therapists as he was not noting improvements in his pain and other goals. Chronic and current use of high-risk medication (Opioids). The patient was counseled about risk of opioid use, psychological risk associated with opioids and was orally counseled to not overuse , divert or sell medications. Pt is to store medication in a safe location. The patient is counseled against driving while using narcotic medications and also not to use alcohol or any illicit recreational drugs. Patient verbalized understanding that the lack of compliance will result in failure to renew narcotic prescription(s) as well as possible discharge from the clinic Diagnoses, prognosis and treatment options including but not limited to physical therapy, surgical interventions, interventional therapies and medication management including narcotics and adjuvant medication were discussed. All patient questions answered MAPS reviewed and it was appropriate. Prescription refill for Lyrica 100mg #90, Tylenol #3 #45 and Baclofen 10mg #90 w 1 refill I have spent less than 30 minutes on patient care today. Dr Cullen was available by phone for the evaluation of this patient. The time was used to review the medical records including relevant urine studies and Prescription history (MAPs), review of the available imaging, evaluation and examination of the patient, coordination of care with the medical staff and if applicable referring physicians, as well as creation of the medical record - Pain Location Lower Back Non-Pharmacological Interventions: Heat, Home Exercise, Ice, Physical Therapy, Sitting, Stretching Pharmacological Interventions: Block, Epidural, PRN Medication, Scheduled Medication, Topical Medication PQRS Narrative: Smoking Status Current every day smoker Narcotic Agreement Date Signed 07/28/21 Hx Alcohol Use (MH) No Home Medications: Ambulatory Orders DULoxetine HCL [Cymbalta] 60 mg PO HS 12/31/14 Tamsulosin HCl [Flomax] 0.4 mg PO HS 12/31/14 Levothyroxine Sodium [Synthroid] 88 mcg PO DAILY 11/17/18 Testosterone Cypionate [Depo-Testosterone] 200 mg IM Q14D 11/17/18 metFORMIN HCL [Glucophage] 1,000 mg PO BID 11/17/18 traZODone HCL 100 mg PO HS 11/17/18 Cariprazine HCl [Vraylar] 1.5 mg PO DAILY 11/21/19 Clopidogrel [Plavix] 75 mg PO DAILY 04/02/20 Fenofibrate [Lofibra] 54 mg PO HS 04/30/20 Cyanocobalamin [Vitamin B-12] 1,000 mcg PO DAILY #30 tab 11/22/20 Folic Acid 1 mg PO DAILY #30 tab 11/22/20 Dicyclomine HCl 20 mg PO QID 01/06/21 Meclizine [Antivert] 25 mg PO BID PRN 01/06/21 Metoprolol Tartrate [Lopressor] 100 mg PO BID 02/04/21 buPROPion XL [Wellbutrin XL] 150 mg PO DAILY 02/04/21 Atorvastatin [Lipitor] 10 mg PO HS 03/07/21 LORazepam [Ativan] 0.5 mg PO BID PRN 03/07/21 Aspirin 81 mg PO DAILY 30 Days #30 chew 03/10/21 amLODIPine [Norvasc] 5 mg PO DAILY 30 Days #30 tab 03/10/21 hydrALAZINE HCL [Apresoline] 50 mg PO BID 30 Days #60 tab 03/10/21 Torsemide [Demadex] 40 mg PO DAILY 05/29/21 Potassium Chloride ER [K-Dur 20] 20 meq PO TID 06/02/21 allopurinoL [Zyloprim] 100 mg PO DAILY 06/02/21 Albuterol Inhaler [Ventolin Hfa Inhaler] 2 puff INHALATION RT-QID PRN 11/13/21 Diclofenac Sodium Gel [Voltaren Gel] 4 gm TOPICAL QID PRN 11/13/21 Ferrous Sulfate [Feosol] 650 mg PO DAILY 11/13/21 Semaglutide [Ozempic] 0.5 mg SQ MO 11/13/21 Acetaminophen-Codeine 300-30mg [Tylenol w/codeine #3] 1 tab PO Q12H PRN 30 Days #45 tablet 04/13/22 Pregabalin [Lyrica] 100 mg PO TID 30 Days #90 cap 04/13/22 Acetaminophen-Codeine 300-30mg [Tylenol w/codeine #3] 1 tab PO Q12H PRN 30 Days #45 tablet 06/08/22 Baclofen [Lioresal] 10 mg PO TID 30 Days #90 tablet 06/08/22 Pregabalin [Lyrica] 100 mg PO TID 30 Days #90 cap 06/08/22 Controlled Substance Measures - Controlled Substance Measures Is patient prescribed a controlled substance at discharge?: Yes When asked, does pt state using other controlled substances?: Yes If prescribed controlled substance>3 days was MAPS reviewed?: Yes If Rx opioid, was Start Talking consent form obtained?: Yes Was information provided regarding opioid addiction?: Yes
== END ==
LOC: PNWHC3 11:02
PROVIDERS: ATTEND Specialist
DX: M51.36 Other intervertebral disc degeneration, lumbar region (principal); M47.816 Spondylosis without myelopathy or radiculopathy, lumbar region; G89.29 Other chronic pain; Z79.891 Long term (current) use of opiate analgesic; Z87.891 Personal history of nicotine dependence; Z91.048 Other nonmedicinal substance allergy status; Z88.1 Allergy status to other antibiotic agents; Z88.2 Allergy status to sulfonamides; Z91.041 Radiographic dye allergy status; Z88.8 Allergy status to other drugs, medicaments and biological substances
CPT/HCPCS: 99211

== ENCOUNTER 2022-07-17 08:12 | Day surgery (SDC) | payer OTHER ==
[2022-07-15 15:46] VITALS: BMI 34.9
--- NOTE | 2022-07-16 09:41 | P.HPOR ---
History of Present Illness H&P Date: 07/16/22 Chief Complaint: Left knee pain The patient is a 51-year-old male who presents with progressive left knee pain for the past several years worsening recently. He is having medial pain with weightbearing activities. He has intermittent locking and giving way. He tried medications in addition to injections without much relief. He notes daily pain that limits him. Review of Systems As per HPI Past Medical History Past Medical History: Asthma, Cancer, Chest Pain / Angina, Heart Failure, CVA/TIA, Diabetes Mellitus, Eye Disorder, GERD/Reflux, Hypertension, Liver Disease, Musculoskeletal Disorder, Renal Disease, Skin Disorder, Vascular Disorder Additional Past Medical History / Comment(s): TMJ, sinus problems, eczema, kidney stones, diverticulitis, back pain w/ DDD, physical limitations. NT Bilat hands, BLE. Skin cancer. Hyperflexia; sl cataracts. CVA 11/2018, WBC level elev - sees Dr. Luna. Ankles, feet, legs, face swollen all the time. PVD. Kidney dx stage 3. Fatty liver. Torn meniscus lt knee. Has wArt on uvula. History of Any Multi-Drug Resistant Organisms: None Reported Past Surgical History: Adenoidectomy, Hernia Repair, Orthopedic Surgery, Tonsillectomy Additional Past Surgical History / Comment(s): Neck fusion, colonoscopy, left knee arthroscopy, Lt foot, bilat CTR, PAIN CLINIC INJECTIONS, BILAT CUBITAL SX ON ELBOWS, EGD, Past Anesthesia/Blood Transfusion Reactions: No Reported Reaction Smoking Status: Former smoker - Past Family History Mother Family Medical History: Cancer Father Family Medical History: Cancer Medications and Allergies Home Medications Medication Instructions Recorded Confirmed Type DULoxetine HCL [Cymbalta] 60 mg PO HS 12/31/14 07/15/22 History Tamsulosin HCl [Flomax] 0.4 mg PO HS 12/31/14 07/15/22 History Levothyroxine Sodium [Synthroid] 88 mcg PO DAILY 11/17/18 07/15/22 History Testosterone Cypionate 200 mg IM Q14D 11/17/18 07/15/22 History [Depo-Testosterone] metFORMIN HCL [Glucophage] 1,000 mg PO BID 11/17/18 07/15/22 History Cariprazine HCl [Vraylar] 1.5 mg PO DAILY 11/21/19 07/15/22 History Fenofibrate [Lofibra] 54 mg PO HS 04/30/20 07/15/22 History Folic Acid 1 mg PO DAILY #30 tab 11/22/20 07/15/22 Rx Dicyclomine HCl 20 mg PO QID 01/06/21 07/15/22 History Meclizine [Antivert] 25 mg PO BID PRN 01/06/21 07/15/22 History Metoprolol Tartrate [Lopressor] 100 mg PO BID 02/04/21 07/15/22 History Atorvastatin [Lipitor] 10 mg PO HS 03/07/21 07/15/22 History LORazepam [Ativan] 0.5 mg PO BID PRN 03/07/21 07/15/22 History Aspirin 81 mg PO DAILY 30 Days #30 chew 03/10/21 07/15/22 Rx amLODIPine [Norvasc] 5 mg PO DAILY 30 Days #30 tab 03/10/21 07/15/22 Rx hydrALAZINE HCL [Apresoline] 50 mg PO BID 30 Days #60 tab 03/10/21 07/15/22 Rx Torsemide [Demadex] 40 mg PO DAILY 05/29/21 07/15/22 History Potassium Chloride ER [K-Dur 20] 20 meq PO TID 06/02/21 07/15/22 History allopurinoL [Zyloprim] 100 mg PO DAILY 06/02/21 07/15/22 History Albuterol Inhaler [Ventolin Hfa 2 puff INHALATION RT-QID PRN 11/13/21 07/15/22 History Inhaler] Diclofenac Sodium Gel [Voltaren 4 gm TOPICAL QID PRN 11/13/21 07/15/22 History Gel] Ferrous Sulfate [Feosol] 650 mg PO DAILY 11/13/21 07/15/22 History Pregabalin [Lyrica] 100 mg PO TID 30 Days #90 cap 04/13/22 07/15/22 Rx Acetaminophen-Codeine 300-30mg 1 tab PO Q12H PRN 30 Days #45 06/08/22 07/15/22 Rx [Tylenol w/codeine #3] tablet Baclofen [Lioresal] 10 mg PO TID 30 Days #90 tablet 06/08/22 07/15/22 Rx Cyanocobalamin [Vitamin B-12] 1,000 mcg PO Q30D 07/15/22 07/15/22 History Dulaglutide [Trulicity] 0.75 mg SQ MO 07/15/22 07/15/22 History Allergies Allergy/AdvReac Type Severity Reaction Status Date / Time adhesive tape Allergy Rash/Hives Verified 07/15/22 15:33 cefaclor [From Ceclor] Allergy Rash/Hives Verified 07/15/22 15:33 dapagliflozin [From Farxiga] Allergy yeast Verified 07/15/22 15:33 infections Iodinated Contrast Media Allergy Rash/Hives,throat Verified 07/15/22 15:33 [Iodinated Contrast Media - swelling IV Dye] propoxyphene napsylate Allergy Rash/Hives Verified 07/15/22 15:33 [From Darvocet-N 100] Sulfa (Sulfonamide Allergy Dyspnea Verified 07/15/22 15:33 Antibiotics) sulfamethoxazole Allergy Rapid Verified 07/15/22 15:33 [From Bactrim] Heart Rate trimethoprim [From Bactrim] Allergy Rapid Verified 07/15/22 15:33 Heart Rate Physical Examination - Knee left Effusion grade: trace Tenderness with palpation: medial Pain: with flexion ROM: extension: -5 degrees ROM: flexion: 120 degrees Strength: extension: 5/5 Strength: flexion: 5/5 Meniscal tests: medial meniscal tests: positive Results The patient is a well-developed well-nourished male proximally 5 foot 5, 200 pounds. HEENT exam is nonfocal. Neck is supple. He has pain with passive motion of his left hip. Straight leg raise is negative. His distal neurovascular appears intact in left lower extremity. - Diagnostic results Knee MRI: image reviewed (Reveals a posterior medial meniscal tear along with medial compartment degenerative changes.) Assessment and Plan Assessment: Left knee internal derangement/symptomatic medial meniscal tear Left knee medial compartment osteoarthrosis Increased body mass index Plan: I talked to the patient length regarding his condition along with treatment options. This point he remains quite symptomatic despite conservative measures. After thorough discussion he opts to proceed with surgery. We'll plan to proceed with arthroscopic evaluation with probable partial medial meniscectomy. We will likely perform this as an outpatient procedure. Risks and benefits were discussed at length in layman's terms. Time with Patient: Less than 30
[~2022-07-17 08:12] MED LIST changes: +DEXAMETHASONE SOD PHOSPHATE 4 MG/ML 1 ML VIAL IV ONE; +HYDROmorphone 0.5 MG/0.5 ML SYRINGE IVP PRN; +ONDANSETRON 4 MG/2 ML VIAL IVP ONE
[2022-07-17 08:51] VITALS: TEMP 96.9
[2022-07-17 09:08] LABS: Glucose,Whole Blood 197 mg/dL (70-110)
[2022-07-17] MEDS ORDERED: HYDROmorphone (PF) 1 MG/ML ONE (09:31)
[2022-07-17] MEDS ORDERED: fentaNYL (PF) 50 MCG/ML 2 ML AMP ONE (09:31)
[2022-07-17] MEDS ORDERED: SUCCINYLCHOLINE CHLORIDE 200 MG/10 ML VIAL IV ONE (09:31)
[2022-07-17] MEDS ORDERED: LIDOCAINE 2% INJ 20 MG/ML (2 ML VIAL) ONE (09:31)
[2022-07-17] MEDS ORDERED: PROPOFOL 10 MG/ML 20 ML VIAL IV ONE (09:31)
[2022-07-17] MEDS ORDERED: MIDAZOLAM 2 MG/2 ML VIAL ONE (09:31)
--- NOTE | 2022-07-17 10:27 | P.OP ---
Date of Procedure: 07/17/22 Preoperative Diagnosis: Left knee internal derangement Postoperative Diagnosis: Left knee posterior medial meniscal tear Procedure(s) Performed: Left knee arthroscopic partial medial meniscectomy Anesthesia: PIPOA Surgeon: Gilson Mas Estimated Blood Loss (ml): 10 Pathology: none sent Condition: stable Disposition: PACU Indications for Procedure: The patient's a 51-year-old male presents with progressive left knee pain and mechanical symptoms despite conservative measures. A discussion of the risks and benefits of operative intervention versus continued conservative measures made with patient. He opted to proceed with surgery. Operative risks to include infection, neurovascular injury, development of blood clots, possible incomplete resolution of symptoms, possible worsening symptoms and need for subscap procedures was discussed. Informed consent was obtained. Operative Findings: As below Description of Procedure: The patient was brought to the operating room, and after induction of general anesthesia examined the left knee. Collaterals were stable, Sarah was negative, and posterior drawer was negative. The left lower extremity was prepped and draped in a normal fashion. A superior lateral portal was made through a 3 mm skin incision superior and lateral to the patella. This was used for outflow. A lateral portal was made through a 5 mm vertical skin incision lateral to the patella tendon above the joint line. Diagnostic arthroscopy was performed. On inspection of the medial compartment, a complex tear involving the medial meniscus was noted in the white-red junction. A portion of this was flipped into the intercondylar notch. This was debrided back to stable base with straight baskets and a motorized shaver. Corresponding grade 2 chondral changes were noted in the medial compartment. On inspection of the notch, the anterior cruciate ligament appeared to be intact. On inspection of the lateral compartment, no significant cartilage or meniscal pathology was noted.. On inspection of the patellofemoral articulation, there is chondral fibrillation however no loose chondral fragments. The gutters were clear debris. The knee was then thoroughly irrigated. The portals were closed with Steri-Strips. A sterile dressing was applied in addition to a compression stocking. The patient was awoken from general anesthesia and transferred to recovery room in good co ndition. Blood loss was estimated at 10 mL. No complications were incurred.
[2022-07-17 12:10] LABS: Glucose,Whole Blood 224 mg/dL (70-110)
[2022-07-17] MEDS ORDERED: HYDROcodone/APAP 5-325MG 1 EACH TAB ONE (12:24)
[2022-07-17] MEDS ORDERED: HYDROcodone/APAP 5-325MG 1 EACH TAB PO ONE (12:25)
[2022-07-17 12:28] VITALS: BP 104/58; PULSE 103; RESP 16
[2022-07-17] MEDS ORDERED: INSULIN ASPART (NovoLOG) 100 UNIT/ML VIAL SQ ONE (12:30)
[2022-07-17 13:06] LABS: Glucose,Whole Blood 276 mg/dL (70-110)
== END 2022-07-17 13:15 | disposition home or self-care (01) ==
LOC: OR 08:12
PROVIDERS: ATTEND Orthopaedic Surgery
DX: M23.322 Other meniscus derangements, posterior horn of medial meniscus, left knee (principal); M17.12 Unilateral primary osteoarthritis, left knee; M25.562 Pain in left knee; J45.909 Unspecified asthma, uncomplicated; E11.22 Type 2 diabetes mellitus with diabetic chronic kidney disease; I13.0 Hypertensive heart and chronic kidney disease with heart failure and stage 1 through stage 4 chronic kidney disease, or unspecified chronic kidney disease; I50.9 Heart failure, unspecified; N18.30 Chronic kidney disease, stage 3 unspecified; R07.9 Chest pain, unspecified; I20.9 Angina pectoris, unspecified; G45.9 Transient cerebral ischemic attack, unspecified; I63.9 Cerebral infarction, unspecified; K21.9 Gastro-esophageal reflux disease without esophagitis; M26.609 Unspecified temporomandibular joint disorder, unspecified side; L30.9 Dermatitis, unspecified; K57.92 Diverticulitis of intestine, part unspecified, without perforation or abscess without bleeding; K76.0 Fatty (change of) liver, not elsewhere classified; M54.9 Dorsalgia, unspecified; E07.9 Disorder of thyroid, unspecified; F41.9 Anxiety disorder, unspecified; F32.9 Major depressive disorder, single episode, unspecified; Z87.39 Personal history of other diseases of the musculoskeletal system and connective tissue; Z85.828 Personal history of other malignant neoplasm of skin; Z90.89 Acquired absence of other organs; Z87.442 Personal history of urinary calculi; Z98.890 Other specified postprocedural states; Z87.891 Personal history of nicotine dependence; Z80.9 Family history of malignant neoplasm, unspecified; Z79.82 Long term (current) use of aspirin; Z79.51 Long term (current) use of inhaled steroids; Z88.2 Allergy status to sulfonamides; Z91.041 Radiographic dye allergy status; Z79.84 Long term (current) use of oral hypoglycemic drugs
CPT/HCPCS: 29881; J2250; J0330; J1100; J0690; J2405; J3010; J1170; J2704; J2001

== ENCOUNTER → 2022-08-05 | Outpatient (CLI) | payer OTHER ==
[2022-08-06 12:07] LABS: Serum Amphetamine Negative; Serum Barbiturates Negative; Serum Benzodiazepine Negative; Serum Cocaine Negative; Serum Methadone Negative; Serum Opiates Positive; Serum Phencyclidine Negative; Serum Propoxyphene Negative; Serum THC (Cannabis) Negative
== END | disposition home or self-care (01) ==
LOC: LABWHC1 11:37
PROVIDERS: ATTEND Physician Assistant
DX: Z02.83 Encounter for blood-alcohol and blood-drug test (principal)
CPT/HCPCS: 36415; 80307

== ENCOUNTER → 2022-08-05 | Outpatient (CLI) | payer OTHER ==
[2022-08-05 11:17] VITALS: BP 140/96; PULSE 100; RESP 18; TEMP 99
--- NOTE | 2022-08-05 14:10 | P.PAINPG ---
Objective - Vital Signs Vital signs: Intake & Output 08/04/22 08/05/22 08/05/22 18:59 06:59 18:59 Weight 96.162 kg PQRS Measure Charge Sheet Comment: A 51 yr old male with a history of severe and chronic low back pain secondary to lumbar degenerative disc diseases and lumbar spondylosis with facet arthropathy without myelopathy presents today for med refills. Pain level is currently at 7/10 in intensity, constant, localized in lower lumbar spine, throbbing in chracter w sharp/ shooting towards BL buttocks and BLEs. Pain is provoked by bending/lifting. Pain is alleviated with PT x 8 wks in 2020, heat, ice, meds (Lyrica, Baclofen, Tyl #3), topicals, repositioning and rest. Interventional pain procedures completed include BL RFA L3-L5 Patient is currently on Tylenol #3, Lyrica, Baclofen Patient denies any side effects of the medication(s), denies excessive drowsiness or sleepiness, denies suicidal ideation and reports that the current pain medication is helping to control the pain and improve activities of daily living. Patient denies any motor or sensory deficits. Patient denies any fever or night sweats, denies any change in the bowel movements or urination. Physical Examination: -Constitutional: Cooperative. Not in acute distress . - Neurologic: Cranial nerve II to XII intact. No focal neurological deficits. - Psychatric: Alert & oriented x 3. Matching mood & appropriate affect. Judgment and insight intact. - Musculoskeletal: Cervical spine: Muscle bulk/ tone/ strength in the bilateral upper extremities normal Vertebral body tenderness to palpation over Spurling test positive Distraction test positive Facet loading test positive Thoracic spine Muscle bulk / tone/ strength in the bilateral paraspinal muscles normal Vertebral body tender to palpation over Facet loading test positive Lumbar spine: Motor bulk/ tone/ strength lower extremities , thigh and legs : 5/5 Deep tendon reflexes : Normal Knee Jerk. Normal Ankle Jerk . Vertebral body tenderness to palpation over Lumbar Facet Loading Test positive w jump reflex over BL L4-L5 < L5-S1 Straight Leg Raise: positive at 30 degrees right side/ left side Gaenslen's Test positive Sacral spine : Severe tenderness over the Sacroiliac joint: right side / left side Range of motion: Flexion of the lumbar spine <60 degrees Range of motion: Extension of the lumbar spine <20 degrees Gaenslen's Test positive Colin's Test positive Abebe test: positive right side / left side Thigh Thrust Test Sacral Thrust Test Assessment and plan: Chronic low back pain secondary to lumbar degenerative disc disease , lumbar spondylosis with facet arthropathy without myelopathy Pt rescheduled BL RFA L3-L5 to 08/28/22 as he had a R knee procedure and developed pain (hence the short course of [employer] [place] 5/325mg) and an infection. Risks, benefits of procedure discussed and pt verbalized understanding. Denies anticoagulant use or medical history of diabetes. Chronic and current use of high-risk medication (Opioids). The patient was counseled about risk of opioid use, psychological risk associated with opioids and was orally counseled to not overuse , divert or sell medications. Pt is to store medication in a safe location. The patient is counseled against driving while using narcotic medications and also not to use alcohol or any illicit recreational drugs. Patient verbalized understanding that the lack of compliance will result in failure to renew narcotic prescription(s) as well as possible discharge from the clinic Diagnoses, prognosis and treatment options including but not limited to physical therapy, surgical interventions, interventional therapies and medication management including narcotics and adjuvant medication were discussed. All patient questions answered MAPS reviewed and it was appropriate. Urine for UDS collected today 08/05/22 Prescription refill for Tylenol #3 #45, Lyrica #90, Baclofen w 1 Rf I have spent less than 30 minutes on patient care today. Dr Cullen was available by phone for the evaluation of this patient. The time was used to review the medical records including relevant urine studies and Prescription history (MAPs), review of the available imaging, evaluation and examination of the patient, coordination of care with the medical staff and if applicable referring physicians, as well as creation of the medical record PQRS Narrative: Smoking Status Current every day smoker Narcotic Agreement Date Signed 07/28/21 Pain Intensity [Lower Back] 8 Scale Used Numeric (1 - 10) Hx Alcohol Use (MH) No Home Medications: Ambulatory Orders DULoxetine HCL [Cymbalta] 60 mg PO HS 12/31/14 Tamsulosin HCl [Flomax] 0.4 mg PO HS 12/31/14 Levothyroxine Sodium [Synthroid] 88 mcg PO DAILY 11/17/18 Testosterone Cypionate [Depo-Testosterone] 200 mg IM Q14D 11/17/18 metFORMIN HCL [Glucophage] 1,000 mg PO BID 11/17/18 Cariprazine HCl [Vraylar] 1.5 mg PO DAILY 11/21/19 Fenofibrate [Lofibra] 54 mg PO HS 04/30/20 Folic Acid 1 mg PO DAILY #30 tab 11/22/20 Dicyclomine HCl 20 mg PO QID 01/06/21 Meclizine [Antivert] 25 mg PO BID PRN 01/06/21 Metoprolol Tartrate [Lopressor] 100 mg PO BID 02/04/21 Atorvastatin [Lipitor] 10 mg PO HS 03/07/21 LORazepam [Ativan] 0.5 mg PO BID PRN 03/07/21 Aspirin 81 mg PO DAILY 30 Days #30 chew 03/10/21 amLODIPine [Norvasc] 5 mg PO DAILY 30 Days #30 tab 03/10/21 hydrALAZINE HCL [Apresoline] 50 mg PO BID 30 Days #60 tab 03/10/21 Torsemide [Demadex] 40 mg PO DAILY 05/29/21 Potassium Chloride ER [K-Dur 20] 20 meq PO TID 06/02/21 allopurinoL [Zyloprim] 100 mg PO DAILY 06/02/21 Albuterol Inhaler [Ventolin Hfa Inhaler] 2 puff INHALATION RT-QID PRN 11/13/21 Diclofenac Sodium Gel [Voltaren Gel] 4 gm TOPICAL QID PRN 11/13/21 Ferrous Sulfate [Feosol] 650 mg PO DAILY 11/13/21 Pregabalin [Lyrica] 100 mg PO TID 30 Days #90 cap 04/13/22 Acetaminophen-Codeine 300-30mg [Tylenol w/codeine #3] 1 tab PO Q12H PRN 30 Days #45 tablet 06/08/22 Baclofen [Lioresal] 10 mg PO TID 30 Days #90 tablet 06/08/22 Cyanocobalamin [Vitamin B-12] 1,000 mcg PO Q30D 07/15/22 Dulaglutide [Trulicity] 1.5 mg SQ MO 07/15/22 glipiZIDE 10 mg PO BID 08/04/22 Controlled Substance Measures - Controlled Substance Measures Is patient prescribed a controlled substance at discharge?: Yes When asked, does pt state using other controlled substances?: Yes If prescribed controlled substance>3 days was MAPS reviewed?: Yes If Rx opioid, was Start Talking consent form obtained?: Yes Was information provided regarding opioid addiction?: Yes
== END ==
LOC: PNWHC3 10:15
PROVIDERS: ATTEND Specialist
DX: M47.816 Spondylosis without myelopathy or radiculopathy, lumbar region (principal); G89.29 Other chronic pain; M51.36 Other intervertebral disc degeneration, lumbar region; F17.200 Nicotine dependence, unspecified, uncomplicated; Z88.2 Allergy status to sulfonamides; Z91.041 Radiographic dye allergy status; Z88.8 Allergy status to other drugs, medicaments and biological substances; Z91.048 Other nonmedicinal substance allergy status
CPT/HCPCS: 99211

== ENCOUNTER 2022-08-28 09:22 | Day surgery (SDC) | payer OTHER ==
[~2022-08-28 09:22] MED LIST changes: -DEXAMETHASONE SOD PHOSPHATE 4 MG/ML 1 ML VIAL IV ONE; -HYDROmorphone 0.5 MG/0.5 ML SYRINGE IVP PRN; +LIDOCAINE 1% (10MG/ML) FOR IV START INTRADERMA PRN; -ONDANSETRON 4 MG/2 ML VIAL IVP ONE
[2022-08-28 09:53] VITALS: TEMP 98.8
[2022-08-28] MEDS ORDERED: fentaNYL (PF) 50 MCG/ML 2 ML AMP ONE (10:02)
[2022-08-28] MEDS ORDERED: MIDAZOLAM 2 MG/2 ML VIAL ONE (10:02)
[2022-08-28] MEDS ORDERED: ROPIVACAINE 5 MG/ML 20 ML AMPULE ONE (10:02)
[2022-08-28] MEDS ORDERED: methylPREDNISolone ACETATE 40 MG/ML 1 ML VIAL ONE (10:02)
[2022-08-28 10:15] LABS: Glucose,Whole Blood 95 mg/dL (70-110)
--- NOTE | 2022-08-28 10:29 | P.PCN ---
Date of Procedure: 08/28/22 Procedure(s) Performed: PREOPERATIVE DIAGNOSIS: 1-Lumbar Spondylosis with Facet Arthropathy without myelopathy. 2- Lumber degenerative disc disease. POSTOPERATIVE DIAGNOSIS: 1- Lumbar Spondylosis with Facet Arthropathy without myelopathy. 2- Lumber degenerative disc disease. PROCEDURES : Bilateral Radiofrequency thermocoagulation, L3 , L4 , and L5 medial branch, with fluoroscopic guidance (fluoroscopy images available in the radiology department) ( to denervate the facet joint at bilateral L4-5 ,and L5-S1 levels ). ANESTHESIA: Monitored anesthesia care as per anesthesia department . EBL: Minimal PROCEDURE INDICATION: The patient with low back pain secondary to lumbar facet arthropathy who had more than 50% relief of her pain with previous diagnostic lumbar medial branch block with bupivacaine. PROCEDURE DESCRIPTION / TECHNIQUE: The patient was seen and identified in the preoperative area. Risks, benefits, complications, including but not limited to risk of infection ,bleeding , allergic reactions to the medications and no complete pain releife , and alternatives were discussed with the patient, the patient agreed to proceed with the procedure and signed the consent. IV was started. Vital signs remained stable throughout the procedure. Patient was taken to the OR and time out was completed. The patient was placed in the prone position on the procedure table. The lumber area was prepped and draped in the usual sterile fashion. . Vital signs were closely monitored during the procedure .IV sedation was used during the procedure to decrease patients anxiety. Using AP and then oblique fluoroscopy, the ``eye of the Jm dog jessi esponding to the connection between the superior and transverse articular processes of right L3, L4, and L5 were identified, marked, and localized with 1% lidocaine. Subsequently, a 18 -iy radiofrequency cannula with a 10- mm active tip was advanced guided by fluoroscopy to each of the``eyes of the Jm dog at right L3, L4, and L5. Each site then underwent sensory testing at 50 Hz and 0 to 1 volt and motor testing at 2.5 Hz and 0 to 3 volt with local stimulation, but no radicular symptoms down the legs. Thereafter each sites underwent radiofrequency thermocoagulation at 80 degrees celsius for 90 seconds after injecting 0.5 ml of PF Ropivacaine 1ml, then after the thermocoagulation done , 1 ml of the block solution containing Depo-Medrol 20 mg and 3 ml of Ropivacaine 0.5% was injected at the right L3 , L4 , and L5 , levels after negative aspiration of CSF and blood and with no paresthesias. Cannulas were retracted while injecting lidocaine 1% until the needle is out. The same procedure was repeated at the level of Left L3, L4, and L5 levels. At the end of the procedure, the skin was cleansed and bandages were applied. COMPLICATIONS: No acute complications. DISPOSITION / PLANS: The patient was placed in a supine position and transferred to the recovery area in a stable condition for observation and was discharged from the recovery room after meeting discharge criteria. Home discharge instructions given to the patient by the staff. The patient was reexamined prior to discharge. The patient will schedule a follow up in the clinic in 2-4 weeks.
[2022-08-28] MEDS ORDERED: IV FLUID CONTINUATION 700 ML IV ONE (10:33)
--- NOTE | 2022-08-28 10:38 | FL ---
Fluoroscopy History: PAIN 24 SEC FL
[2022-08-28 10:44] VITALS: RESP 16
[2022-08-28 11:07] VITALS: BP 138/92; PULSE 92
== END 2022-08-28 11:11 | disposition home or self-care (01) ==
LOC: ORPAIN 09:22
PROVIDERS: ATTEND Specialist
DX: M47.816 Spondylosis without myelopathy or radiculopathy, lumbar region (principal); M51.36 Other intervertebral disc degeneration, lumbar region; K21.9 Gastro-esophageal reflux disease without esophagitis; I11.0 Hypertensive heart disease with heart failure; I50.9 Heart failure, unspecified; J44.9 Chronic obstructive pulmonary disease, unspecified; E13.621 Other specified diabetes mellitus with foot ulcer; L97.509 Non-pressure chronic ulcer of other part of unspecified foot with unspecified severity; Z79.84 Long term (current) use of oral hypoglycemic drugs; Z79.899 Other long term (current) drug therapy
CPT/HCPCS: 64635; 64636; J2250; J1030; J3010; J2795

== ENCOUNTER 2022-09-11 20:09 | Emergency (ER) | payer OTHER ==
[2022-09-11 21:09] VITALS: RESP 16; TEMP 98.2
[2022-09-11] MEDS ORDERED: HYDROcodone/APAP 5-325MG 1 EACH TAB PO STA (22:19)
--- NOTE | 2022-09-11 23:27 | ED ---
Male Urogenital HPI - General Chief complaint: Urogenital Stated complaint: urinary issues/post surgery Time Seen by Provider: 09/11/22 21:10 Source: patient Mode of arrival: ambulatory Limitations: no limitations - History of Present Illness Initial comments: 51-year-old male with past medical history of prostate disorder who presents to the emergency department with urinary retention. Patient had a uro lift yesterday. Reports that after the procedure he had urinary retention which required him to go into the emergency department. A catheter was placed. He then had a follow-up appointment with his urologist this morning where the catheter was removed. States that he has been unable to urinate since 1 PM. Patient has had some significant abdominal discomfort. Denies fevers. No other alleviating, precipitating or modifying factors - Related Data Home Medications Medication Instructions Recorded Confirmed DULoxetine HCL [Cymbalta] 60 mg PO HS 12/31/14 08/28/22 Tamsulosin HCl [Flomax] 0.4 mg PO HS 12/31/14 08/28/22 Levothyroxine Sodium [Synthroid] 88 mcg PO DAILY 11/17/18 08/28/22 Testosterone Cypionate 200 mg IM Q14D 11/17/18 08/28/22 [Depo-Testosterone] metFORMIN HCL [Glucophage] 1,000 mg PO BID 11/17/18 08/28/22 Cariprazine HCl [Vraylar] 1.5 mg PO DAILY 11/21/19 08/28/22 Fenofibrate [Lofibra] 54 mg PO HS 04/30/20 08/28/22 Dicyclomine HCl 20 mg PO QID 01/06/21 08/28/22 Meclizine [Antivert] 25 mg PO BID PRN 01/06/21 08/28/22 Metoprolol Tartrate [Lopressor] 100 mg PO BID 02/04/21 08/28/22 Atorvastatin [Lipitor] 10 mg PO HS 03/07/21 08/28/22 LORazepam [Ativan] 0.5 mg PO BID PRN 03/07/21 08/28/22 Torsemide [Demadex] 40 mg PO DAILY 05/29/21 08/28/22 Potassium Chloride ER [K-Dur 20] 20 meq PO TID 06/02/21 08/28/22 allopurinoL [Zyloprim] 100 mg PO DAILY 06/02/21 08/28/22 Albuterol Inhaler [Ventolin Hfa 2 puff INHALATION RT-QID PRN 11/13/21 08/28/22 Inhaler] Diclofenac Sodium Gel [Voltaren 4 gm TOPICAL QID PRN 11/13/21 08/28/22 Gel] Ferrous Sulfate [Feosol] 650 mg PO DAILY 11/13/21 08/28/22 Cyanocobalamin [Vitamin B-12] 1,000 mcg PO Q30D 07/15/22 08/28/22 Dulaglutide [Trulicity] 1.5 mg SQ MO 07/15/22 08/28/22 glipiZIDE 10 mg PO BID 08/04/22 08/28/22 Previous Rx's Medication Instructions Recorded Folic Acid 1 mg PO DAILY #30 tab 11/22/20 Aspirin 81 mg PO DAILY 30 Days #30 chew 03/10/21 amLODIPine [Norvasc] 5 mg PO DAILY 30 Days #30 tab 03/10/21 hydrALAZINE HCL [Apresoline] 50 mg PO BID 30 Days #60 tab 03/10/21 Acetaminophen-Codeine 300-30mg 1 tab PO Q12H PRN 30 Days #45 08/05/22 [Tylenol w/codeine #3] tablet Baclofen [Lioresal] 10 mg PO TID 30 Days #90 tablet 08/05/22 Pregabalin [Lyrica] 100 mg PO TID 30 Days #90 cap 08/05/22 Allergies Allergy/AdvReac Type Severity Reaction Status Date / Time adhesive tape Allergy Rash/Hives Verified 09/14/22 08:30 cefaclor [From Ceclor] Allergy Rash/Hives Verified 09/14/22 08:30 dapagliflozin [From Farxiga] Allergy yeast Verified 09/14/22 08:30 infections Iodinated Contrast Media Allergy Rash/Hives,throat Verified 09/14/22 08:30 [Iodinated Contrast Media - swelling IV Dye] propoxyphene napsylate Allergy Rash/Hives Verified 09/14/22 08:30 [From Darvocet-N 100] Sulfa (Sulfonamide Allergy Dyspnea Verified 09/14/22 08:30 Antibiotics) sulfamethoxazole Allergy Rapid Verified 09/14/22 08:30 [From Bactrim] Heart Rate trimethoprim [From Bactrim] Allergy Rapid Verified 09/14/22 08:30 Heart Rate Review of Systems ROS Statement: Those systems with pertinent positive or pertinent negative responses have been documented in the HPI. ROS Other: All systems not noted in ROS Statement are negative. Past Medical History Past Medical History: Coronary Artery Disease (CAD), CVA/TIA, Hypertension, Prostate Disorder History of Any Multi-Drug Resistant Organisms: None Reported Past Surgical History: Orthopedic Surgery Additional Past Surgical History / Comment(s): Urolift Smoking Status: Never smoker Past Alcohol Use History: None Reported Past Drug Use History: None Reported - Past Family History Mother Family Medical History: Cancer Father Family Medical History: Cancer General Exam Limitations: no limitations Head exam: Present: atraumatic, normocephalic, normal inspection Respiratory exam: Present: normal lung sounds bilaterally. Absent: respiratory distress, wheezes, rales, rhonchi, stridor Cardiovascular Exam: Present: regular rate, normal rhythm, normal heart sounds. Absent: systolic murmur, diastolic murmur, rubs, gallop, clicks GI/Abdominal exam: Present: distended (suprapubic), tenderness Course Vital Signs 09/11/22 09/11/22 21:04 23:53 Temperature 98.2 F Pulse Rate 103 H 84 Respiratory 16 16 Rate Blood Pressure 183/103 146/90 O2 Sat by Pulse 98 98 Oximetry Medical Decision Making - Medical Decision Making Upon arrival patient was placed into room 29. Catheter is placed. The patient does have return of 1300 mL of orange urine. I did attempt to call of the patient's urologist. Urologist is paged several times however we never receive a call back. I discussed this with the patient. States that the catheter must be left in for a week prior to removal. Needs to follow-up with his urologist for removal. Patient understands and was agreeable to this. Return for any new or worsening symptoms. Patient discharged home in stable condition Disposition Clinical Impression: Urinary retention Disposition: HOME SELF-CARE Condition: Stable Instructions (If sedation given, give patient instructions): Urinary Retention in Men (ED) Additional Instructions: Please call the urologist on Wednesday. The catheter will need to be removed likely at the end of next week. Return for any new or worsening symptoms Is patient prescribed a controlled substance at d/c from ED?: No Referrals: Tristin Phillips DO [Primary Care Provider] - 1-2 days Time of Disposition: 23:27
[2022-09-11 23:53] VITALS: BP 146/90; PULSE 84
== END 2022-09-11 23:53 | disposition home or self-care (01) ==
LOC: EC 20:09 → MERGE 20:09 → EC 23:53
DX: R33.9 Retention of urine, unspecified (principal); I25.10 Atherosclerotic heart disease of native coronary artery without angina pectoris; Z86.73 Personal history of transient ischemic attack (TIA), and cerebral infarction without residual deficits; I10 Essential (primary) hypertension; Z88.2 Allergy status to sulfonamides; Z91.041 Radiographic dye allergy status; Z88.8 Allergy status to other drugs, medicaments and biological substances; Z79.82 Long term (current) use of aspirin; Z79.890 Hormone replacement therapy; Z79.84 Long term (current) use of oral hypoglycemic drugs; Z79.899 Other long term (current) drug therapy
CPT/HCPCS: 51702; 51798; 99283

== ENCOUNTER → 2022-09-28 | Outpatient (CLI) | payer OTHER ==
--- NOTE | 2022-09-28 14:25 | XR ---
EXAMINATION TYPE: XR wrist complete LT DATE OF EXAM: 09/28/2022 CLINICAL HISTORY: Pain after injury. TECHNIQUE: Frontal, lateral and oblique images of the left wrist are obtained. 4 view scaphoid view is performed. COMPARISON: Left hand x-ray 2013 FINDINGS: There is no acute fracture/dislocation evident in the left wrist. Mild narrowing and spurr ing base of first metacarpal. Joint spaces are otherwise maintained. The overlying soft tissue appear s unremarkable. IMPRESSION: There is no acute fracture or dislocation in the left wrist.
== END | disposition home or self-care (01) ==
LOC: RADXRYALE 14:01
PROVIDERS: ATTEND Physician Assistant Medical
DX: M25.532 Pain in left wrist (principal); W01.0XXA Fall on same level from slipping, tripping and stumbling without subsequent striking against object, initial encounter

== ENCOUNTER 2022-09-30 10:45 | Emergency (ER) | payer OTHER ==
[2022-09-30 11:05] VITALS: TEMP 98.4
[2022-09-30] MEDS ORDERED: cloNIDine HCL 0.2 MG TAB PO STA (11:30)
--- NOTE | 2022-09-30 11:31 | ED ---
Recheck HPI - General Chief Complaint: Recheck/Abnormal Lab/Rx Stated Complaint: hypertension Time Seen by Provider: 09/30/22 11:11 Source: patient, RN notes reviewed Mode of arrival: ambulatory Limitations: no limitations - History of Present Illness Initial Comments: This is a 51-year-old male who presents to the emergency department for elevated blood pressure. He was at the pain clinic earlier today, where they noticed that his blood pressure was elevated. They subsequently instructed him to come to the emergency department. He does have a history of hypertension, which is managed by his interior design coordinator. Currently being treated with losartan, metoprolol, amlodipine, torsemide, and hydralazine. He notes that he has had an increase in shortness of breath and wheezing over the last couple of weeks, however he is unsure if it has been worse over the last couple of days. He does note a history of asthma. Denies any headaches or visual changes. Denies any fevers, chills, sore throat, palpitations, abdominal pain, nausea, vomiting, diarrhea, back pain, or headaches. MD Complaint: other (elevated blood pressure) - Related Data Home Medications Medication Instructions Recorded Confirmed DULoxetine HCL [Cymbalta] 60 mg PO HS 12/31/14 09/30/22 Tamsulosin HCl [Flomax] 0.4 mg PO HS 12/31/14 09/30/22 Levothyroxine Sodium [Synthroid] 88 mcg PO DAILY 11/17/18 09/30/22 Testosterone Cypionate 200 mg IM Q14D 11/17/18 09/30/22 [Depo-Testosterone] metFORMIN HCL [Glucophage] 1,000 mg PO BID 11/17/18 09/30/22 Cariprazine HCl [Vraylar] 1.5 mg PO DAILY 11/21/19 09/30/22 Fenofibrate [Lofibra] 54 mg PO HS 04/30/20 09/30/22 Dicyclomine HCl 20 mg PO QID 01/06/21 09/30/22 Meclizine [Antivert] 25 mg PO BID PRN 01/06/21 09/30/22 Metoprolol Tartrate [Lopressor] 100 mg PO BID 02/04/21 09/30/22 Atorvastatin [Lipitor] 10 mg PO HS 03/07/21 09/30/22 LORazepam [Ativan] 0.5 mg PO BID PRN 03/07/21 09/30/22 Torsemide [Demadex] 40 mg PO DAILY 05/29/21 09/30/22 Potassium Chloride ER [K-Dur 20] 20 meq PO TID 06/02/21 09/30/22 allopurinoL [Zyloprim] 100 mg PO DAILY 06/02/21 09/30/22 Albuterol Inhaler [Ventolin Hfa 2 puff INHALATION RT-QID PRN 11/13/21 09/30/22 Inhaler] Diclofenac Sodium Gel [Voltaren 4 gm TOPICAL QID PRN 11/13/21 09/30/22 Gel] Ferrous Sulfate [Feosol] 650 mg PO DAILY 11/13/21 09/30/22 Cyanocobalamin [Vitamin B-12] 1,000 mcg PO Q30D 07/15/22 09/30/22 Dulaglutide [Trulicity] 1.5 mg SQ MO 07/15/22 09/30/22 glipiZIDE 10 mg PO BID 08/04/22 09/30/22 Previous Rx's Medication Instructions Recorded Folic Acid 1 mg PO DAILY #30 tab 11/22/20 Aspirin 81 mg PO DAILY 30 Days #30 chew 03/10/21 amLODIPine [Norvasc] 5 mg PO DAILY 30 Days #30 tab 03/10/21 hydrALAZINE HCL [Apresoline] 50 mg PO BID 30 Days #60 tab 03/10/21 Acetaminophen-Codeine 300-30mg 1 tab PO Q12H PRN 30 Days #45 09/30/22 [Tylenol w/codeine #3] tablet Baclofen [Lioresal] 10 mg PO TID 30 Days #90 tablet 09/30/22 Pregabalin [Lyrica] 100 mg PO TID 30 Days #90 cap 09/30/22 Allergies Allergy/AdvReac Type Severity Reaction Status Date / Time adhesive tape Allergy Rash/Hives Verified 09/30/22 11:05 cefac[place] [From [facility] Allergy Rash/Hives Verified 09/30/22 11:05 dapagliflozin [From [facility]] Allergy yeast Verified 09/30/22 11:05 infections Iodinated Contrast Media Allergy Rash/Hives,throat Verified 09/30/22 11:05 [Iodinated Contrast Media - swelling IV Dye] propoxyphene napsylate Allergy Rash/Hives Verified 09/30/22 11:05 [From Darvocet-N 100] Sulfa (Sulfonamide Allergy Dyspnea Verified 09/30/22 11:05 Antibiotics) sulfamethoxazole Allergy Rapid Verified 09/30/22 11:05 [From Bactrim] Heart Rate trimethoprim [From Bactrim] Allergy Rapid Verified 09/30/22 11:05 Heart Rate Review of Systems ROS Statement: Those systems with pertinent positive or pertinent negative responses have been documented in the HPI. ROS Other: All systems not noted in ROS Statement are negative. Past Medical History Past Medical History: Asthma, Coronary Artery Disease (CAD), Cancer, Chest Pain / Angina, Heart Failure, CVA/TIA, Diabetes Mellitus, Eye Disorder, GERD/Reflux, Hypertension, Liver Disease, Musculoskeletal Disorder, Prostate Disorder, Renal Disease, Skin Disorder, Vascular Disorder Additional Past Medical History / Comment(s): TMJ, sinus problems, eczema, ki dney stones, diverticulitis, back pain w/ DDD, physical limitations. NT Bilat hands, BLE. Skin cancer. Hyperflexia; sl cataracts. CVA 11/2018, WBC level elev - sees Dr. Luna. Ankles, feet, legs, face swollen all the time. PVD. Kidney dx stage 3. Fatty liver. Torn meniscus lt knee. Has wort on uvula. History of Any Multi-Drug Resistant Organisms: None Reported Past Surgical History: Adenoidectomy, Hernia Repair, Orthopedic Surgery, Tonsillectomy Additional Past Surgical History / Comment(s): Urolift Past Anesthesia/Blood Transfusion Reactions: No Reported Reaction Past Psychological History: Anxiety, Depression Smoking Status: Former smoker, Never smoker Past Alcohol Use History: None Reported Past Drug Use History: None Reported - Past Family History Mother Family Medical History: Cancer Father Family Medical History: Cancer General Exam Limitations: no limitations General appearance: alert, in no apparent distress Head exam: Present: atraumatic, normocephalic, normal inspection Eye exam: Present: normal appearance, PERRL, EOMI. Absent: scleral icterus, conjunctival injection, periorbital swelling Respiratory exam: Present: normal lung sounds bilaterally. Absent: respiratory distress, wheezes, rales, rhonchi, stridor Cardiovascular Exam: Present: regular rate, normal rhythm, normal heart sounds. Absent: systolic murmur, diastolic murmur, rubs, gallop, clicks Neurological exam: Present: alert, oriented X3, CN II-XII intact Psychiatric exam: Present: normal affect, normal mood Skin exam: Present: warm, dry, intact, normal color. Absent: rash Course Vital Signs 09/30/22 09/30/22 09/30/22 11:02 13:52 14:22 Temperature 98.4 F Pulse Rate 92 86 Respiratory 20 18 Rate Blood Pressure 196/111 180/111 165/103 O2 Sat by Pulse 96 96 Oximetry 09/30/22 14:53 Temperature Pulse Rate 89 Respiratory 18 Rate Blood Pressure 168/108 O2 Sat by Pulse 98 Oximetry Medical Decision Making - Medical Decision Making This is a 51-year-old male who presents to the emergency department for elevated blood pressure. Lab work and urinalysis obtained and found to be nonactionable. COVID and influenza testing were negative. My interpretation of the patient's chest x-ray reveals no localized consolidations or infiltrates. He was first given clonidine 0.2 mg with only minor improvement in blood pressure. He was subsequently given sublingual nitroglycerin, which did offer additional improvement. Case discussed with ED attending, Dr. Berman, who advised that the dose of his current medications, hydralazine and Norvasc, can be increased. Patient states that he has a follow-up scheduled with his interior design coordinator for later today. Advised that he discuss his blood pressure with his interior design coordinator to determine if any dosing changes need to be made. Return precautions reviewed in depth, the patient is instructed to return to the emergency department with any new, worsening, or concerning symptoms. Patient verbalized understanding. This case was discussed in detail with the attending ED physician. Presentation, findings, and treatment plan discussed in detail as well. - Lab Data Result diagrams: 09/30/22 12:46 09/30/22 12:18 Lab Results 09/30/22 09/30/22 09/30/22 Range/Units 12:00 12:00 12:00 WBC (3.8-10.6) k/uL RBC (4.30-5.90) m/uL Hgb (13.0-17.5) gm/dL Hct (39.0-53.0) % MCV (80.0-100.0) fL MCH (25.0-35.0) pg MCHC (31.0-37.0) g/dL RDW (11.5-15.5) % Plt Count (150-450) k/uL MPV Neutrophils % % Lymphocytes % % Monocytes % % Eosinophils % % Basophils % % Neutrophils # (1.3-7.7) k/uL Lymphocytes # (1.0-4.8) k/uL Monocytes # (0-1.0) k/uL Eosinophils # (0-0.7) k/uL Basophils # (0-0.2) k/uL ESR (0-15) mm/hr Sodium (137-145) mmol/L Potassium (3.5-5.1) mmol/L Chloride (98-107) mmol/L Carbon Dioxide (22-30) mmol/L Anion Gap mmol/L BUN (9-20) mg/dL Creatinine (0.66-1.25) mg/dL Est GFR (CKD-EPI)AfAm (>60 ml/min/1.73 sqM) Est GFR (CKD-EPI)NonAf (>60 ml/min/1.73 sqM) Glucose (74-99) mg/dL Calcium (8.4-10.2) mg/dL Total Bilirubin (0.2-1.3) mg/dL AST (17-59) U/L ALT (4-49) U/L Alkaline Phosphatase (38-126) U/L Troponin I (0.000-0.034) ng/mL C-Reactive Protein (<1.0) mg/dL Total Protein (6.3-8.2) g/dL Albumin (3.5-5.0) g/dL Urine Color Yellow Urine Appearance Clear (Clear) Urine pH 6.5 (5.0-8.0) Ur Specific [place] 1.023 (1.001-1.035) Urine Protein 1+ H (Negative) Urine Glucose (UA) Negative (Negative) Urine Ketones Negative (Negative) Urine Blood Negative (Negative) Urine Nitrite Negative (Negative) Urine Bilirubin Negative (Negative) Urine Urobilinogen <2.0 (<2.0) mg/dL Ur Leukocyte Esterase Negative (Negative) Urine RBC 1 (0-5) /hpf Urine WBC 2 (0-5) /hpf Hyaline Casts 1 (0-2) /lpf Urine Mucus Rare H (None) /hpf Coronavirus (PCR) Not Detected (Not Detectd) Influenza Type A RNA Not Detected (Not Detectd) Influenza Type B (PCR) Not Detected (Not Detectd) 09/30/22 09/30/22 09/30/22 Range/Units 12:18 12:18 12:46 WBC 8.2 (3.8-10.6) k/uL RBC 3.91 L (4.30-5.90) m/uL Hgb 13.0 (13.0-17.5) gm/dL Hct 38.8 L (39.0-53.0) % MCV 99.2 (80.0-100.0) fL MCH 33.3 (25.0-35.0) pg MCHC 33.5 (31.0-37.0) g/dL RDW 12.8 (11.5-15.5) % Plt Count 311 (150-450) k/uL MPV 9.0 Neutrophils % 64 % Lymphocytes % 21 % Monocytes % 5 % Eosinophils % 7 % Basophils % 2 % Neutrophils # 5.3 (1.3-7.7) k/uL Lymphocytes # 1.7 (1.0-4.8) k/uL Monocytes # 0.4 (0-1.0) k/uL Eosinophils # 0.6 (0-0.7) k/uL Basophils # 0.1 (0-0.2) k/uL ESR 8 (0-15) mm/hr Sodium 139 (137-145) mmol/L Potassium 5.0 (3.5-5.1) mmol/L Chloride 106 (98-107) mmol/L Carbon Dioxide 22 (22-30) mmol/L Anion Gap 11 mmol/L BUN 13 (9-20) mg/dL Creatinine 1.39 H (0.66-1.25) mg/dL Est GFR (CKD-EPI)AfAm 68 (>60 ml/min/1.73 sqM) Est GFR (CKD-EPI)NonAf 58 (>60 ml/min/1.73 sqM) Glucose 153 H (74-99) mg/dL Calcium 10.1 (8.4-10.2) mg/dL Total Bilirubin 0.3 (0.2-1.3) mg/dL AST 48 (17-59) U/L ALT 48 (4-49) U/L Alkaline Phosphatase 73 (38-126) U/L Troponin I <0.012 (0.000-0.034) ng/mL C-Reactive Protein 0.7 (<1.0) mg/dL Total Protein 7.0 (6.3-8.2) g/dL Albumin 4.7 (3.5-5.0) g/dL Urine Color Urine Appearance (Clear) Urine pH (5.0-8.0) Ur Specific [place] (1.001-1.035) Urine Protein (Negative) Urine Glucose (UA) (Negative) Urine Ketones (Negative) Urine Blood (Negative) Urine Nitrite (Negative) Urine Bilirubin (Negative) Urine Urobilinogen (<2.0) mg/dL Ur Leukocyte Esterase (Negative) Urine RBC (0-5) /hpf Urine WBC (0-5) /hpf Hyaline Casts (0-2) /lpf Urine Mucus (None) /hpf Coronavirus (PCR) (Not Detectd) Influenza Type A RNA (Not Detectd) Influenza Type B (PCR) (Not Detectd) - Radiology Data Radiology results: report reviewed, image reviewed Disposition Clinical Impression: Hypertension Disposition: HOME SELF-CARE Instructions (If sedation given, give patient instructions): Chronic Hypertension (ED), Hypertension (ED) Additional Instructions: Return to the emergency department with any new, worsening, or concerning symptoms. Discuss increasing your hypertension medications with your interior design coordinator at your appointment today. Follow up with your primary care provider in 1-2 days. Is patient prescribed a controlled substance at d/c from ED?: No Referrals: Tristin Phillips DO [Primary Care Provider] - 1-2 days
[2022-09-30 12:19] LABS: Appearance,Urine Clear (Clear); Bilirubin,Urine Negative (Negative); Blood,Urine Negative (Negative); Color,Urine Yellow; Glucose,Urine (UA) Negative (Negative); Hyaline Casts,Urine 1 /lpf (0-2); Ketones,Urine Negative (Negative); Leukocyte Esterase,Urine Negative (Negative); Mucus,Urine Rare /hpf; Nitrite,Urine Negative (Negative); PH, Urine 6.5 (5.0-8.0); Protein,Urine 1+ (Negative); RBC,Urine 1 /hpf (0-5); Specific Gravity,Urine 1.023 (1.001-1.035); Urobilinogen,Urine <2.0 mg/dL (<2.0); WBC,Urine 2 /hpf (0-5)
[2022-09-30 12:43] LABS: Albumin 4.7 g/dL (3.5-5.0); C Reactive Protein 0.7 mg/dL (<1.0); Calcium 10.1 mg/dL (8.4-10.2); Total Bilirubin 0.3 mg/dL (0.2-1.3)
[2022-09-30 12:58] LABS: Basophils # (A) 0.1 k/uL (0-0.2); Basophils % (A) 2 %; Eosinophils # (A) 0.6 k/uL (0-0.7); Eosinophils % (A) 7 %; HCT 38.8 % (39.0-53.0); Lymphocytes # (A) 1.7 k/uL (1.0-4.8); Lymphocytes % (A) 21 %; MCH 33.3 pg (25.0-35.0); MCHC 33.5 g/dL (31.0-37.0); MCV 99.2 fL (80.0-100.0); Monocytes # (A) 0.4 k/uL (0-1.0); Monocytes % (A) 5 %; Neutrophils # (A) 5.3 k/uL (1.3-7.7); Neutrophils % (A) 64 %; Platelet Count 311 k/uL (150-450); RBC 3.91 m/uL (4.30-5.90); RDW 12.8 % (11.5-15.5); WBC 8.2 k/uL (3.8-10.6)
--- NOTE | 2022-09-30 13:27 | XR ---
EXAMINATION TYPE: XR chest 2V DATE OF EXAM: 09/30/2022 COMPARISON: 03/07/2022 HISTORY: Shortness of breath TECHNIQUE: Frontal and lateral views of the chest are obtained. FINDINGS: Scattered senescent parenchymal changes noted. Hyperinflation compatible with COPD. No evidence for infiltrate. No evidence for atelectasis. Heart size is stable. Mediastinal structures are stable and grossly unremarkable. No evidence for hilar prominence. Degenerative changes dorsal spine. IMPRESSION: 1. No evidence for acute pulmonary disease.
[2022-09-30 13:53] VITALS: RESP 18
[2022-09-30] MEDS ORDERED: cloNIDine HCL 0.1 MG TAB PO STA (13:55)
[2022-09-30] MEDS ORDERED: NITROGLYCERIN SL TABS 0.4 MG TAB SUBLINGUAL STA (13:55)
[2022-09-30 14:54] VITALS: BP 168/108; PULSE 89
[2022-09-30 15:00] LABS: Erythrocyte Sedimentation Rate 8 mm/hr (0-15)
== END 2022-09-30 14:54 | disposition home or self-care (01) ==
LOC: EC 10:45
DX: I11.0 Hypertensive heart disease with heart failure (principal); J45.909 Unspecified asthma, uncomplicated; I25.10 Atherosclerotic heart disease of native coronary artery without angina pectoris; I50.9 Heart failure, unspecified; E11.9 Type 2 diabetes mellitus without complications; K21.9 Gastro-esophageal reflux disease without esophagitis; Z20.822 Contact with and (suspected) exposure to COVID-19; Z87.891 Personal history of nicotine dependence; Z86.73 Personal history of transient ischemic attack (TIA), and cerebral infarction without residual deficits; Z88.8 Allergy status to other drugs, medicaments and biological substances; Z91.041 Radiographic dye allergy status; Z88.2 Allergy status to sulfonamides; Z88.1 Allergy status to other antibiotic agents; Z79.890 Hormone replacement therapy; Z79.84 Long term (current) use of oral hypoglycemic drugs; Z79.899 Other long term (current) drug therapy
CPT/HCPCS: 36415; 71046; 80053; 81001; 84484; 85025; 85652; 86140; 87502; 87635; 99283

== ENCOUNTER → 2022-09-30 | Outpatient (CLI) | payer OTHER ==
[2022-09-30 10:21] VITALS: BP 176/119; PULSE 95; RESP 16; TEMP 98.2
--- NOTE | 2022-09-30 14:43 | P.PAINPG ---
PQRS Measure Charge Sheet Comment: A 51 yr old male with a history of severe and chronic low back pain secondary to lumbar DDD and spondylosis with facet arthropathy without myelopathy presents today for medication refills and evaluation s/p BL RFAL3-L5. Pt states he experienced 75% pain relief s/p procedure. Pain level is currently at 7/10 in intensity, constant, localized in the center of his lumbar spine, achy in character w shooting towards the BL feet. Pain is provoked by over activity. Pain is alleviated with PT x 6 wks in Dec 2020, heat, ice, medications (Tyl #3, Baclofen, Lyrica), topicals, reclining and rest. Interventional pain procedures completed include BL RFA L3-L5 Patient is currently on Lyrica, Tyl #3, Baclofen Patient denies any side effects of the medication(s), denies excessive drowsiness or sleepiness, denies suicidal ideation and reports that the current pain medication is helping to control the pain and improve activities of daily living. Patient denies any motor or sensory deficits. Patient denies any fever or night sweats, denies any change in the bowel movements or urination. Physical Examination: -Constitutional: Cooperative. Not in acute distress . - Neurologic: Cranial nerve II to XII intact. No focal neurological deficits. - Psychatric: Alert & oriented x 3. Matching mood & appropriate affect. Judgment and insight intact. - Musculoskeletal: Cervical spine: Muscle bulk/ tone/ strength in the bilateral upper extremities normal Vertebral body tenderness to palpation over Spurling test positive Distraction test positive Facet loading test positive Thoracic spine Muscle bulk / tone/ strength in the bilateral paraspinal muscles normal Vertebral body tender to palpation over Facet loading test positive Lumbar spine: Motor bulk/ tone/ strength lower extremities , thigh and legs : 5/5 Deep tendon reflexes : Normal Knee Jerk. Normal Ankle Jerk . Vertebral body tenderness to palpation over L3, L4, L5 Lumbar Facet Loading Test positive Straight Leg Raise: positive at 30 degrees right side/ left side Gaenslen's Test positive Sacral spine : Severe tenderness over the Sacroiliac joint: right side / left side Range of motion: Flexion of the lumbar spine <60 degrees Range of motion: Extension of the lumbar spine <20 degrees Gaenslen's Test positive Abebe test: positive right side / left side Thigh Thrust Test Sacral Thrust Test Assessment and plan: Chronic low back pain secondary to lumbar degenerative disc disease, spondylosis with facet arthropathy without myelopathy Pt exhibited sufficient and substantial pain relief s/p procedure. Chronic and current use of high-risk medication (Opioids). The patient was counseled about risk of opioid use, psychological risk associated with opioids and was orally counseled to not overuse , divert or sell medications. Pt is to store medication in a safe location. The patient is counseled against driving while using narcotic medications and also not to use alcohol or any illicit recreational drugs. Patient verbalized understanding that the lack of compliance will result in failure to renew narcotic prescription(s) as well as possible discharge from the clinic Diagnoses, prognosis and treatment options including but not limited to physical therapy, surgical interventions, interventional therapies and medication management including narcotics and adjuvant medication were discussed. All patient questions answered MAPS reviewed and it was appropriate. Blood tox screen from 08/05/22 reviewed and consistent Prescription refill for Lyrica 100mg #90 , Tyl #3 #45 , Baclofen #60 w 1 RF I have spent less than 30 minutes on patient care today. Dr Cullen was available by phone for the evaluation of this patient. The time was used to review the medical records including relevant urine studies and Prescription history (MAPs), review of the available imaging, evaluation and examination of the patient, coordination of care with the medical staff and if applicable referring physicians, as well as creation of the medical record - Pain Location Bilateral Lower Back Non-Pharmacological Interventions: Elevation, Heat, Ice, Inactivity, Physical Therapy, Position/Reposition, Sitting Pharmacological Interventions: Block, Epidural, PRN Medication, Scheduled Medication, Topical Medication PQRS Narrative: Smoking Status Current every day smoker Narcotic Agreement Date Signed 01/12/22 Hx Alcohol Use (MH) No Home Medications: Ambulatory Orders DULoxetine HCL [Cymbalta] 60 mg PO HS 12/31/14 Tamsulosin HCl [Flomax] 0.4 mg PO HS 12/31/14 Levothyroxine Sodium [Synthroid] 88 mcg PO DAILY 11/17/18 Testosterone Cypionate [Depo-Testosterone] 200 mg IM Q14D 11/17/18 metFORMIN HCL [Glucophage] 1,000 mg PO BID 11/17/18 Cariprazine HCl [Vraylar] 1.5 mg PO DAILY 11/21/19 Fenofibrate [Lofibra] 54 mg PO HS 04/30/20 Folic Acid 1 mg PO DAILY #30 tab 11/22/20 Dicyclomine HCl 20 mg PO QID 01/06/21 Meclizine [Antivert] 25 mg PO BID PRN 01/06/21 Metoprolol Tartrate [Lopressor] 100 mg PO BID 02/04/21 Atorvastatin [Lipitor] 10 mg PO HS 03/07/21 LORazepam [Ativan] 0.5 mg PO BID PRN 03/07/21 Aspirin 81 mg PO DAILY 30 Days #30 chew 03/10/21 amLODIPine [Norvasc] 5 mg PO DAILY 30 Days #30 tab 03/10/21 hydrALAZINE HCL [Apresoline] 50 mg PO BID 30 Days #60 tab 03/10/21 Torsemide [Demadex] 40 mg PO DAILY 05/29/21 Potassium Chloride ER [K-Dur 20] 20 meq PO TID 06/02/21 allopurinoL [Zyloprim] 100 mg PO DAILY 06/02/21 Albuterol Inhaler [Ventolin Hfa Inhaler] 2 puff INHALATION RT-QID PRN 11/13/21 Diclofenac Sodium Gel [Voltaren Gel] 4 gm TOPICAL QID PRN 11/13/21 Ferrous Sulfate [Feosol] 650 mg PO DAILY 11/13/21 Cyanocobalamin [Vitamin B-12] 1,000 mcg PO Q30D 07/15/22 Dulaglutide [Trulicity] 1.5 mg SQ MO 07/15/22 glipiZIDE 10 mg PO BID 08/04/22 Acetaminophen-Codeine 300-30mg [Tylenol w/codeine #3] 1 tab PO Q12H PRN 30 Days #45 tablet 09/30/22 Baclofen [Lioresal] 10 mg PO TID 30 Days #90 tablet 09/30/22 Pregabalin [Lyrica] 100 mg PO TID 30 Days #90 cap 09/30/22 Controlled Substance Measures - Controlled Substance Measures Is patient prescribed a controlled substance at discharge?: No
== END ==
LOC: PNWHC3 09:51
PROVIDERS: ATTEND Specialist
DX: M47.816 Spondylosis without myelopathy or radiculopathy, lumbar region (principal); M51.36 Other intervertebral disc degeneration, lumbar region; G89.29 Other chronic pain; Z79.891 Long term (current) use of opiate analgesic; Z91.048 Other nonmedicinal substance allergy status; Z88.1 Allergy status to other antibiotic agents; Z91.041 Radiographic dye allergy status; Z88.2 Allergy status to sulfonamides; Z88.8 Allergy status to other drugs, medicaments and biological substances; F17.200 Nicotine dependence, unspecified, uncomplicated
CPT/HCPCS: 99211

== ENCOUNTER → 2022-11-25 | Outpatient (CLI) | payer OTHER ==
[2022-11-25 13:44] VITALS: BP 148/99; PULSE 95; RESP 18; TEMP 98.4
--- NOTE | 2022-11-25 14:17 | P.PAINPG ---
PQRS Measure Charge Sheet Comment: A 52 yr old male with a history of severe and chronic LBP x yrs secondary to lumbar DDD and spondylosis with facet arthropathy without myelopathy presents today for medication refills. Pain level is provoked at 7/10 in intensity, constant, localized in the lumbar spine, sharp in character w shooting towards the BLEs. Pain is provoked by bending, lifting, pushing. Pain is alleviated with medications, PT currently for his knee, heat, ice, laying supine, home stretching regimen, repositioning and rest. Would like to take medication to relieve stiffness, cracking sounds w forward flexion. Interventional pain procedures completed include BL RFA L3-L5 Patient is currently on Tyl #3, Lyrica Patient denies any side effects of the medication(s), denies excessive drowsiness or sleepiness, denies suicidal ideation and reports that the current pain medication is helping to control the pain and improve activities of daily living. Patient denies any motor or sensory deficits. Patient denies any fever or night sweats, denies any change in the bowel movements or urination. Physical Examination: -Constitutional: Cooperative. Not in acute distress . - Neurologic: Cranial nerve II to XII intact. No focal neurological deficits. - Psychatric: Alert & oriented x 3. Matching mood & appropriate affect. [place]iss[place] gment and insight intact. - Musculoskeletal: Cervical spine: Muscle bulk/ tone/ strength in the bilateral upper extremities normal Vertebral body tenderness to palpation over Spurling test positive Distraction test positive Facet loading test positive Thoracic spine Muscle bulk / tone/ strength in the bilateral paraspinal muscles normal Vertebral body tender to palpation over Facet loading test positive Lumbar spine: +crepitus w ROM Motor bulk/ tone/ strength lower extremities , thigh and legs : 5/5 Deep tendon reflexes : Normal Knee Jerk. Normal Ankle Jerk . Vertebral body tenderness to palpation over Lumbar Facet Loading Test positive Straight Leg Raise: positive at 30 degrees right side/ left side Gaenslen's Test positive Sacral spine : Severe tenderness over the Sacroiliac joint: right side / left side Range of motion: Flexion of the lumbar spine <60 degrees Range of motion: Extension of the lumbar spine <20 degrees Gaenslen's Test positive Abebe test: positive right side / left side Thigh Thrust Test Sacral Thrust Test Assessment and plan: Chronic LBP secondary to lumbar DDD, spondylosis with facet arthropathy without myelopathy Chronic and current use of high-risk medication (Opioids). The patient was counseled about risk of opioid use, psychological risk associated with opioids and was orally counseled to not overuse , divert or sell medications. Pt is to store medication in a safe location. The patient is counseled against driving while using narcotic medications and also not to use alcohol or any illicit recreational drugs. Patient verbalized understanding that the lack of compliance will result in failure to renew narcotic prescription(s) as well as possible discharge from the clinic Diagnoses, prognosis and treatment options including but not limited to physical therapy, surgical interventions, interventional therapies and medication management including narcotics and adjuvant medication were discussed. All patient questions answered MAPS reviewed and it was appropriate. Let's tox screen from 08/05/22 reviewed and consistent. Prescription refill for Tylenol No. 3 #45, Lyrica 100 mg #90, Baclofen, Mobic with 1 refill I have spent less than 30 minutes on patient care today. Dr Cullen was available by phone for the evaluation of this patient. The time was used to review the medical records including relevant urine studies and Prescription history (MAPs), review of the available imaging, evaluation and examination of the patient, coordination of care with the medical staff and if applicable referring physicians, as well as creation of the medical record PQRS Narrative: Smoking Status Current every day smoker Narcotic Agreement Date Signed 01/12/22 Hx Alcohol Use (MH) No Home Medications: Ambulatory Orders DULoxetine HCL [Cymbalta] 60 mg PO HS 12/31/14 Tamsulosin HCl [Flomax] 0.4 mg PO HS 12/31/14 Levothyroxine Sodium [Synthroid] 88 mcg PO DAILY 11/17/18 Testosterone Cypionate [Depo-Testosterone] 200 mg IM Q14D 11/17/18 metFORMIN HCL [Glucophage] 1,000 mg PO BID 11/17/18 Cariprazine HCl [Vraylar] 1.5 mg PO DAILY 11/21/19 Fenofibrate [Lofibra] 54 mg PO HS 04/30/20 Folic Acid 1 mg PO DAILY #30 tab 11/22/20 Dicyclomine HCl 20 mg PO QID 01/06/21 Meclizine [Antivert] 25 mg PO BID PRN 01/06/21 Metoprolol Tartrate [Lopressor] 100 mg PO BID 02/04/21 Atorvastatin [Lipitor] 10 mg PO HS 05/07/21 LORazepam [Ativan] 0.5 mg PO BID PRN 03/07/21 Aspirin 81 mg PO DAILY 30 Days #30 chew 03/10/21 amLODIPine [Norvasc] 5 mg PO DAILY 30 Days #30 tab 03/10/21 hydrALAZINE HCL [Apresoline] 50 mg PO BID 30 Days #60 tab 03/10/21 Torsemide [Demadex] 40 mg PO DAILY 05/29/21 Potassium Chloride ER [K-Dur 20] 20 meq PO TID 06/02/21 allopurinoL [Zyloprim] 100 mg PO DAILY 06/02/21 Albuterol Inhaler [Ventolin Hfa Inhaler] 2 puff INHALATION RT-QID PRN 11/13/21 Diclofenac Sodium Gel [Voltaren Gel] 4 gm TOPICAL QID PRN 11/13/21 Ferrous Sulfate [Feosol] 650 mg PO DAILY 11/13/21 Cyanocobalamin [Vitamin B-12] 1,000 mcg PO Q30D 07/15/22 Dulaglutide [Trulicity] 1.5 mg SQ MO 07/15/22 glipiZIDE 10 mg PO BID 08/04/22 Acetaminophen-Codeine 300-30mg [Tylenol w/codeine #3] 1 tab PO Q12H PRN 30 Days #45 tablet 09/30/22 Baclofen [Lioresal] 10 mg PO TID 30 Days #90 tablet 09/30/22 Pregabalin [Lyrica] 100 mg PO TID 30 Days #90 cap 09/30/22 Controlled Substance Measures - Controlled Substance Measures Is patient prescribed a controlled substance at discharge?: Yes When asked, does pt state using other controlled substances?: No If prescribed controlled substance>3 days was MAPS reviewed?: Yes If Rx opioid, was Start Talking consent form obtained?: Yes If opioid is for acute pain is fill amount 7 days or less?: No Was information provided regarding opioid addiction?: Yes
== END ==
LOC: PNWHC3 13:20
PROVIDERS: ATTEND Specialist
DX: M47.816 Spondylosis without myelopathy or radiculopathy, lumbar region (principal); G89.29 Other chronic pain; M51.36 Other intervertebral disc degeneration, lumbar region; Z79.891 Long term (current) use of opiate analgesic; F17.200 Nicotine dependence, unspecified, uncomplicated; Z91.048 Other nonmedicinal substance allergy status; Z91.041 Radiographic dye allergy status; Z88.2 Allergy status to sulfonamides; Z88.8 Allergy status to other drugs, medicaments and biological substances
CPT/HCPCS: 99211

== ENCOUNTER → 2022-12-04 | Outpatient (CLI) | payer OTHER ==
--- NOTE | 2022-12-05 05:59 | US ---
EXAMINATION TYPE: US kidneys/renal and bladder DATE OF EXAM: 12/04/2022 COMPARISON: CT abdomen and pelvis October 28, 2020. Prior renal ultrasound November 21, 2021 and olde r studies CLINICAL HISTORY: N28.1 CYST OF KIDNEY, ACQUIRED. EXAM MEASUREMENTS: Right Kidney: 11.6 x 4.8 x 4.9 cm Left Kidney: 11.1 x 4.3 x 4.8 cm Right Kidney: complex cyst measuring 2.3 x 1.9 x 2.2cm Left Kidney: No hydronephrosis or masses seen Bladder: wnl Bilateral Jets seen: Yes Incidental finding of splenomegaly. When scanning the right kidney adjacent liver is heterogeneously hyperechoic. There is persistent thi n-walled complex cyst lower pole of the right kidney with thin septa measuring 2.3 x 1.9 cm similar i n size and appearance to most recent ultrasound. The urinary bladder is adequately distended. Bilat eral ureteral jets are seen. Mild splenomegaly at 13.1 cm long axis is redemonstrated. No concerning left renal mass. No hydronephrosis seen bilaterally. IMPRESSION: Stable 2.3 cm thin-walled cyst with thin septa in the lower pole right kidney, Bosniak 2 lesion.
== END | disposition home or self-care (01) ==
LOC: RADUSWWP 16:08
PROVIDERS: ATTEND Urology
DX: N28.1 Cyst of kidney, acquired (principal)
CPT/HCPCS: 76770

== ENCOUNTER → 2023-01-13 | Outpatient (CLI) | payer OTHER ==
--- NOTE | 2023-01-13 12:49 | XR ---
EXAMINATION TYPE: XR chest 2V DATE OF EXAM: 01/13/2023 COMPARISON: 09/30/2022 HISTORY: 52-year-old male [id number], shortness of breath TECHNIQUE: Frontal and lateral views FINDINGS: The heart is upper limits of normal in size. Aorta and pulmonary vasculature within normal limits. No consolidation or pleural effusion. ACDF hardware. IMPRESSION: No acute cardiopulmonary process.
== END | disposition home or self-care (01) ==
LOC: RADXRYALE 11:17
PROVIDERS: ATTEND Physician Assistant Medical
DX: R06.02 Shortness of breath (principal)
CPT/HCPCS: 71046

== ENCOUNTER → 2023-01-20 | Outpatient (CLI) | payer OTHER ==
[2023-01-20 13:56] VITALS: RESP 16
[2023-01-20 13:58] VITALS: BP 121/84; PULSE 99; TEMP 98.3
--- NOTE | 2023-01-20 14:52 | P.PAINPG ---
PQRS Measure Charge Sheet Comment: A 52 yr old male with a history of severe and chronic LBP secondary to lumbar DDD and spondylosis with facet arthropathy without myelopathy presents today for medication refills. Pain level is provoked at 8 /10 in intensity, constant, localized in the lumbar spine, throbbing in character w shooting towards the BLEs. Pain is provoked by bending, lifting. Pain is alleviated with medications, injections, ice, heat, home exercise regimen, reclining and rest. Interventional pain procedures completed include LESIs, BL RFA L3-L5 Patient is currently on Tyl #3, Baclofen, Lyrica, Mobic Patient denies any side effects of the medication(s), denies excessive drowsiness or sleepiness, denies suicidal ideation and reports that the current pain medication is helping to control the pain and improve activities of daily living. Patient denies any motor or sensory deficits. Patient denies any fever or night sweats, denies any change in the bowel movements or urination. Physical Examination: -Constitutional: Cooperative. Not in acute distress . - Neurologic: Cranial nerve II to XII intact. No focal neurological deficits. - Psychatric: Alert & oriented x 3. Matching mood & appropriate affect. Judgment and insight intact. - Musculoskeletal: Cervical spine: Muscle bulk/ tone/ strength in the bilateral upper extremities normal Vertebral body tenderness to palpation over Spurling test positive Distraction test positive Facet loading test positive TTP Thoracic spine Muscle bulk / tone/ strength in the bilateral paraspinal muscles normal Vertebral body tender to palpation over Facet loading test positive TTP Lumbar spine: Motor bulk/ tone/ strength lower extremities , thigh and legs : 5/5 Deep tendon reflexes : Normal Knee Jerk. Normal Ankle Jerk . Vertebral body tenderness to palpation over L4 Lumbar Facet Loading Test positive Straight Leg Raise: positive at 30 degrees right side/ left side Gaenslen's Test positive Sacral spine : Severe tenderness over the Sacroiliac joint: right side / left side Range of motion: Flexion of the lumbar spine <60 degrees Range of motion: Extension of the lumbar spine <20 degrees Gaenslen's Test positive right side / left side Abebe test: positive right side / left side Thigh Thrust Test positive right side / left side Sacral Thrust Test positive right side / left side Assessment and plan: Chronic LBP secondary to lumbar DDD, spondylosis with facet arthropathy without myelopathy Chronic and current use of high-risk medication (Opioids). The patient was counseled about risk of opioid use, psychological risk associated with opioids and was orally counseled to not overuse , divert or sell medications. Pt is to store medication in a safe location. The patient is counseled against driving while using narcotic medications and also not to use alcohol or any illicit recreational drugs. Patient verbalized understanding that the lack of compliance will result in failure to renew narcotic prescription(s) as well as possible discharge from the clinic Diagnoses, prognosis and treatment options including but not limited to physical therapy, surgical interventions, interventional therapies and medication management including narcotics and adjuvant medication were discussed. All patient questions answered MAPS reviewed and it was appropriate. UDS collected today 01/20/23. Prescription refill for Tyl #3 #60, Lyrica 100mg #90, Baclofen, Mobic w 1 RF. I have spent less than 30 minutes on patient care today. Dr Cullen was available by phone for the evaluation of this patient. The time was used to review the medical records including relevant urine studies and Prescription history (MAPs), review of the available imaging, evaluation and examination of the patient, coordination of care with the medical staff and if applicable referring physicians, as well as creation of the medical record PQRS Narrative: Smoking Status Current every day smoker Narcotic Agreement Date Signed 01/12/22 Hx Alcohol Use (MH) No Home Medications: Ambulatory Orders DULoxetine HCL [Cymbalta] 60 mg PO HS 12/31/14 Tamsulosin HCl [Flomax] 0.4 mg PO HS 12/31/14 Levothyroxine Sodium [Synthroid] 88 mcg PO DAILY 11/17/18 Testosterone Cypionate [Depo-Testosterone] 200 mg IM Q14D 11/17/18 metFORMIN HCL [Glucophage] 1,000 mg PO BID 11/17/18 Cariprazine HCl [Vraylar] 1.5 mg PO DAILY 11/21/19 Fenofibrate [Lofibra] 54 mg PO HS 04/30/20 Folic Acid 1 mg PO DAILY #30 tab 11/22/20 Dicyclomine HCl 20 mg PO QID 01/06/21 Meclizine [Antivert] 25 mg PO BID PRN 01/06/21 Metoprolol Tartrate [Lopressor] 100 mg PO BID 02/04/21 Atorvastatin [Lipitor] 10 mg PO HS 03/07/21 LORazepam [Ativan] 0.5 mg PO BID PRN 03/07/21 Aspirin 81 mg PO DAILY 30 Days #30 chew 03/10/21 amLODIPine [Norvasc] 5 mg PO DAILY 30 Days #30 tab 03/10/21 hydrALAZINE HCL [Apresoline] 50 mg PO BID 30 Days #60 tab 03/10/21 Torsemide [Demadex] 40 mg PO DAILY 05/29/21 Potassium Chloride ER [K-Dur 20] 20 meq PO TID 06/02/21 allopurinoL [Zyloprim] 100 mg PO DAILY 06/02/21 Albuterol Inhaler [Ventolin Hfa Inhaler] 2 puff INHALATION RT-QID PRN 11/13/21 Diclofenac Sodium Gel [Voltaren Gel] 4 gm TOPICAL QID PRN 11/13/21 Ferrous Sulfate [Feosol] 650 mg PO DAILY 11/13/21 Cyanocobalamin [Vitamin B-12] 1,000 mcg PO Q30D 07/15/22 Dulaglutide [Trulicity] 1.5 mg SQ MO 07/15/22 glipiZIDE 10 mg PO BID 08/04/22 Acetaminophen-Codeine 300-30mg [Tylenol w/codeine #3] 1 tab PO Q12H PRN 30 Days #45 tablet 11/25/22 Baclofen [Lioresal] 10 mg PO TID 30 Days #90 tablet 11/25/22 Dulaglutide [Trulicity] 11/25/22 Empagliflozin [Jardiance] 11/25/22 Meloxicam [Mobic] 7.5 mg PO DAILY 30 Days #30 tab 11/25/22 Pioglitazone [Actos] 11/25/22 Pregabalin [Lyrica] 100 mg PO TID 30 Days #90 cap 11/25/22 Controlled Substance Measures - Controlled Substance Measures Is patient prescribed a controlled substance at discharge?: Yes
== END ==
LOC: PNWHC3 13:03
PROVIDERS: ATTEND Specialist
DX: M51.36 Other intervertebral disc degeneration, lumbar region (principal); M47.816 Spondylosis without myelopathy or radiculopathy, lumbar region; G89.29 Other chronic pain; F17.200 Nicotine dependence, unspecified, uncomplicated; Z91.048 Other nonmedicinal substance allergy status; Z88.1 Allergy status to other antibiotic agents; Z91.041 Radiographic dye allergy status; Z79.891 Long term (current) use of opiate analgesic; Z88.2 Allergy status to sulfonamides; Z88.5 Allergy status to narcotic agent
CPT/HCPCS: 80307; G0482; G0463; 99212

== ENCOUNTER → 2023-01-26 | Day surgery (SDC) | payer OTHER ==
--- NOTE | 2023-01-25 09:25 | P.HPOR ---
History of Present Illness H&P Date: 01/25/23 Chief Complaint: Left knee pain The patient's a 52-year-old male on disability who presents with recurrent left knee pain. He notes increasing pain along with catching and giving way with weightbearing activities. He's tried medications along with an injection and therapy with persistence of his symptoms. He notes daily pain. Review of Systems As per HPI Past Medical History Past Medical History: Asthma, Coronary Artery Disease (CAD), Cancer, Chest Pain / Angina, Heart Failure, CVA/TIA, Diabetes Mellitus, Eye Disorder, GERD/Reflux, Hypertension, Liver Disease, Musculoskeletal Disorder, Osteoarthritis (OA), Prostate Disorder, Renal Disease, Skin Disorder, Vascular Disorder Additional Past Medical History / Comment(s): TMJ, sinus problems, eczema, kidney stones, diverticulitis, back pain w/ DDD, physical limitations. NT Bilat hands, BLE. Skin cancer. Hyperflexia; sl cataracts. CVA 11/2018, hx. of WBC level elev - sees Dr. Luna. Ankles, feet, legs, face swollen all the time. PVD. Kidney dx stage 3. Fatty liver. Torn meniscus lt knee. History of Any Multi-Drug Resistant Organisms: None Reported Past Surgical History: Adenoidectomy, Hernia Repair, Orthopedic Surgery, Tonsillectomy Additional Past Surgical History / Comment(s): Urolift, pain procedures, arthroscopy left knee x2-most recent 2021, kimmy CTS, kimmy CTS elbow, wart removed from uvula Past Anesthesia/Blood Transfusion Reactions: Previous Problems w/ Anesthesia Additional Past Anesthesia/Blood Transfusion Reaction / Comment(s): slow to wake up w/last knee surg. Smoking Status: Former smoker - Past Family History Mother Family Medical History: Cancer Father Family Medical History: Cancer Medications and Allergies Home Medications Medication Instructions Recorded Confirmed Type DULoxetine HCL [Cymbalta] 80 mg PO HS 12/31/14 01/21/23 History Tamsulosin HCl [Flomax] 0.4 mg PO HS 12/31/14 01/21/23 History Levothyroxine Sodium [Synthroid] 88 mcg PO DAILY 11/17/18 01/21/23 History Testosterone Cypionate 200 mg IM Q14D 11/17/18 01/21/23 History [Depo-Testosterone] metFORMIN HCL [Glucophage] 1,000 mg PO BID 11/17/18 01/21/23 History Cariprazine HCl [Vraylar] 1.5 mg PO DAILY 11/21/19 01/21/23 History Folic Acid 1 mg PO DAILY #30 tab 11/22/20 01/21/23 Rx Dicyclomine HCl 20 mg PO QID 01/06/21 01/21/23 History Metoprolol Tartrate [Lopressor] 100 mg PO BID 02/04/21 01/21/23 History Atorvastatin [Lipitor] 20 mg PO HS 03/07/21 01/21/23 History LORazepam [Ativan] 0.5 mg PO BID PRN 03/07/21 01/21/23 History hydrALAZINE HCL [Apresoline] 50 mg PO BID 30 Days #60 tab 03/10/21 01/21/23 Rx Torsemide [Demadex] 40 mg PO DAILY 05/29/21 01/21/23 History Potassium Chloride ER [K-Dur 20] 20 meq PO TID 06/02/21 01/21/23 History allopurinoL [Zyloprim] 200 mg PO DAILY 06/02/21 01/21/23 History Albuterol Inhaler [Ventolin Hfa 2 puff INHALATION RT-QID PRN 11/13/21 01/21/23 History Inhaler] Ferrous Sulfate [Feosol] 2 tab PO DAILY 11/13/21 01/21/23 History Cyanocobalamin [Vitamin B-12] 1,000 mcg PO DAILY 07/15/22 01/21/23 History Dulaglutide [Trulicity] 0.75 mg SQ WEEKLY 07/15/22 01/21/23 History glipiZIDE 10 mg PO BID 08/04/22 01/21/23 History Empagliflozin [Jardiance] 10 mg PO DAILY 11/25/22 01/21/23 History Pioglitazone [Actos] 15 ng PO DAILY 11/25/22 01/21/23 History Meloxicam [Mobic] 7.5 mg PO DAILY 30 Days #30 tab 01/20/23 01/21/23 Rx Pregabalin [Lyrica] 100 mg PO TID 30 Days #90 cap 01/20/23 01/21/23 Rx Acetaminophen-Codeine 300-30mg 1 tab PO BID PRN 01/21/23 01/21/23 History [Tylenol w/codeine #3] Baclofen [Lioresal] 1 - 2 tab PO TID PRN 01/21/23 01/21/23 History Ergocalciferol [Vitamin D2 (1250 1,250 mcg PO Q30D 01/21/23 01/21/23 History Mcg = [id number] Iu)] Pantoprazole [Protonix] 40 mg PO BID 01/21/23 01/21/23 History hydroCHLOROthiazide [Hydrodiuril] 12.5 mg PO DAILY 01/21/23 01/21/23 History Allergies Allergy/AdvReac Type Severity Reaction Status Date / Time adhesive tape Allergy Rash/Hives Verified 01/21/23 12:32 cefaclor [From Ceclor] Allergy Rash/Hives Verified 01/21/23 12:32 dapagliflozin [From Farxiga] Allergy yeast Verified 01/21/23 12:32 infections Iodinated Contrast Media Allergy Rash/Hives,throat Verified 01/21/23 12:32 [Iodinated Contrast Media - swelling IV Dye] propoxyphene napsylate Allergy Rash/Hives Verified 01/21/23 12:32 [From Darvocet-N 100] Sulfa (Sulfonamide Allergy Dyspnea Verified 01/21/23 12:32 Antibiotics) sulfamethoxazole Allergy Rapid Verified 01/21/23 12:32 [From Bactrim] Heart Rate trimethoprim [From Bactrim] Allergy Rapid Verified 01/21/23 12:32 Heart Rate Physical Examination - Knee left Appearance: effusion Effusion grade: grade 1 Varus alignment in stance: 5 degrees Tenderness with palpation: medial Pain: throughout ROM Gait: limping ( ) ROM: extension: -5 degrees ROM: flexion: 120 degrees Crepitus with motion: Yes Strength: extension: 5/5 Strength: flexion: 5/5 Meniscal tests: medial meniscal tests: positive, medial joint line pain: positive Results The patient is a well-developed well-nourished male of endomorphic habitus. HEENT exam is nonfocal, neck is supple. He has painless passive motion of his left hip. Straight leg raise is negative. His distal neurovascular appears intact left lower extremity. - Diagnostic results Knee MRI: image reviewed (MRI of the left knee shows a recurrent medial meniscal tear along with medial compartment degenerative changes in the posterior medial Thibodeaux's cyst.) Assessment and Plan Assessment: Left knee recurrent medial meniscal tear Left knee tricompartmental osteoarthrosis Plan: I talked to the patient regarding his condition along with treatment options. At this point is having persistent pain and mechanical symptoms despite conservative measures. After thorough discussion he opted to proceed with surgery. We'll plan to proceed with left knee arthroscopic evaluation with probable partial medial meniscectomy. We will likely perform as an outpatient procedure. Risks and benefits were discussed at length in layman's terms.
[~2023-01-26] MED LIST changes: +DEXAMETHASONE SOD PHOSPHATE 4 MG/ML 1 ML VIAL IV ONE; +EPINEPHrine (PF) 1 ML in SODIUM CHLORIDE 0.9% IRRIGATIO 3,000 ML IRRIGATION ONE; +HYDROmorphone 0.5 MG/0.5 ML SYRINGE IVP PRN; +INSULIN ASPART (NovoLOG) 100 UNIT/ML VIAL SQ ONE; +MIDAZOLAM 2 MG/2 ML VIAL ONE; +ONDANSETRON 4 MG/2 ML VIAL IVP ONE; +PROPOFOL 10 MG/ML 20 ML VIAL IV ONE; +fentaNYL (PF) 50 MCG/ML 2 ML AMP ONE
[2023-01-26 12:00] LABS: Glucose,Whole Blood 253 mg/dL (70-110)
--- NOTE | 2023-01-26 13:19 | P.OP ---
Date of Procedure: 01/26/23 Preoperative Diagnosis: Left knee recurrent medial meniscal tear Postoperative Diagnosis: Same Procedure(s) Performed: Left knee arthroscopic partial medial meniscectomy Anesthesia: spinal Surgeon: Gilson Mas Estimated Blood Loss (ml): 10 Pathology: none sent Condition: stable Disposition: PACU Indications for Procedure: The patient is a 52-year-old male presents with left knee pain after reinjuring it recently. Upon evaluation he was noted of recurrent medial meniscal tear. He discussion of the risks and benefits of operative intervention versus conservative measures was made with patient. Proceed with surgery. Operative risks to include infection, nerve injury, development of blood clots, possible incomplete resolution of symptoms, possible worsening symptoms and need for subsequent procedures was discussed. Informed consent was obtained. Operative Findings: As below Description of Procedure: The patient was brought to the operating room, and after induction of general anesthesia examined the left knee. Collaterals were stable, Sarah was negative, and posterior drawer was negative. The left lower extremity was prepped and draped in a normal fashion. A superior lateral portal was made thro ugh a 3 mm skin incision superior and lateral to the patella. This was used for outflow. A lateral portal was made through a 5 mm vertical skin incision lateral to the patella tendon above the joint line. Diagnostic arthroscopy was performed. On inspection of the medial compartment, a recurrent tear involving the medial meniscus in the white-red junction was noted. This was debrided back to stable base with straight baskets and a motorized shaver. Grade 3 chondral changes were noted diffusely in the medial compartment. On inspection of the notch, the anterior cruciate ligament appeared to be intact. On inspection of the lateral compartment meniscal or cartilage was pathology was noted. On inspection of the patellofemoral articulation, there was chondral fibrillation however no loose chondral fragments. The gutters were clear debris. The knee was then thoroughly irrigated. The portals were closed with Steri-Strips. A sterile dressing was applied in addition to a compression stocking. The patient was awoken from general anesthesia and transferred to recovery room in good condition. Blood loss was estimated at 10 mL. No complications were incurred.
[2023-01-26 13:27] VITALS: TEMP 97.3
[2023-01-26 13:49] LABS: Glucose,Whole Blood 196 mg/dL (70-110)
[2023-01-26 14:46] LABS: Glucose,Whole Blood 175 mg/dL (70-110)
[2023-01-26 15:09] VITALS: BP 134/87; PULSE 82; RESP 18
== END | disposition home or self-care (01) ==
LOC: OR 11:14
PROVIDERS: ATTEND Orthopaedic Surgery
DX: S83.242A Other tear of medial meniscus, current injury, left knee, initial encounter (principal); J45.909 Unspecified asthma, uncomplicated; I25.10 Atherosclerotic heart disease of native coronary artery without angina pectoris; E11.36 Type 2 diabetes mellitus with diabetic cataract; I11.0 Hypertensive heart disease with heart failure; I50.9 Heart failure, unspecified; X58.XXXA Exposure to other specified factors, initial encounter; Z86.73 Personal history of transient ischemic attack (TIA), and cerebral infarction without residual deficits; Z87.891 Personal history of nicotine dependence; Z79.84 Long term (current) use of oral hypoglycemic drugs; Z79.899 Other long term (current) drug therapy
CPT/HCPCS: 29881; J2250; J0690; J2405; J0171; J3010; J2704

== ENCOUNTER → 2023-03-17 | Outpatient (CLI) | payer MEDICARE, OTHER ==
--- NOTE | 2023-03-17 15:05 | P.PAINPG ---
PQRS Measure Charge Sheet Comment: A 52 yr old male with a history of severe and chronic LBP secondary to lumbar DDD and spondylosis with facet arthropathy without myelopathy presents today for medication refills. Pain level is provoked at 8 /10 in intensity, constant, localized in the lumbar spine, throbbing in character w shooting towards the BLEs. Pain is provoked by bending, lifting or carrying in excess of 10 lbs. Pain is alleviated with medications, injections, ice, heat, PT x 6 wks in Fall 2021, home exercise regimen, reclining and rest. UDS from 01/20/23 was +ETOH metabolites. Discussed findings w patient and will recollect UDS today. Interventional pain procedures completed include LESIs, BL RFA L3-L5 Patient is currently on Tyl #3, Baclofen, Lyrica, Mobic Patient denies any side effects of the medication(s), denies excessive drowsiness or sleepiness, denies suicidal ideation and reports that the current pain medication is helping to control the pain and improve activities of daily living. Patient denies any motor or sensory deficits. Patient denies any fever or night sweats, denies any change in the bowel movements or urination. Physical Examination: -Constitutional: Cooperative. Not in acute distress . - Neurologic: Cranial nerve II to XII intact. No focal neurological deficits. - Psychatric: Alert & oriented x 3. Matching mood & appropriate affect. Judgment and insight intact. - Musculoskeletal: Cervical spine: Muscle bulk/ tone/ strength in the bilateral upper extremities normal Vertebral body tenderness to palpation over Spurling test positive Distraction test positive Facet loading test positive TTP Thoracic spine Muscle bulk / tone/ strength in the bilateral paraspinal muscles normal Vertebral body tender to palpation over Facet loading test positive TTP Lumbar spine: Motor bulk/ tone/ strength lower extremities , thigh and legs : 5/5 Deep tendon reflexes : Normal Knee Jerk. Normal Ankle Jerk . Vertebral body tenderness to palpation over L4 Lumbar Facet Loading Test positive Straight Leg Raise: positive at 30 degrees right side/ left side Gaenslen's Test positive Sacral spine : Severe tenderness over the Sacroiliac joint: right side / left side Range of motion: Flexion of the lumbar spine <60 degrees Range of motion: Extension of the lumbar spine <20 degrees Gaenslen's Test positive right side / left side Abebe test: positive right side / left side Thigh Thrust Test positive right side / left side Sacral Thrust Test positive right side / left side Assessment and plan: Chronic LBP secondary to lumbar DDD, spondylosis with facet arthropathy without myelopathy Chronic and current use of high-risk medication (Opioids). The patient was counseled about risk of opioid use, psychological risk associated with opioids and was orally counseled to not overuse , divert or sell medications. Pt is to store medication in a safe location. The patient is counseled against driving while using narcotic medications and also not to use alcohol or any illicit recreational drugs. Patient verbalized understanding that the lack of compliance will result in failure to renew narcotic prescription(s) as well as possible discharge from the clinic Diagnoses, prognosis and treatment options including but not limited to physical therapy, surgical interventions, interventional therapies and medication management including narcotics and adjuvant medication were discussed. All patient questions answered MAPS reviewed and it was appropriate. UDS reviewed 01/20/23 and inconsistent. Recollected UDS today 03/17/23. Prescription refill for Tyl #3 #60, Lyrica 100mg #90, Baclofen, Mobic w 1 RF. I have spent less than 30 minutes on patient care today. Dr Cullen was available by phone for the evaluation of this patient. The time was used to review the medical records including relevant urine studies and Prescription history (MAPs), review of the available imaging, evaluation and examination of the patient, coordination of care with the medical staff and if applicable referring physicians, as well as creation of the medical record PQRS Narrative: Smoking Status Current every day smoker Narcotic Agreement Date Signed 01/12/22 Hx Alcohol Use (MH) No Home Medications: Ambulatory Orders DULoxetine HCL [Cymbalta] 80 mg PO HS 12/31/14 Tamsulosin HCl [Flomax] 0.4 mg PO HS 12/31/14 Levothyroxine Sodium [Synthroid] 88 mcg PO DAILY 11/17/18 Testosterone Cypionate [Depo-Testosterone] 200 mg IM Q14D 11/17/18 metFORMIN HCL [Glucophage] 1,000 mg PO BID 11/17/18 Cariprazine HCl [Vraylar] 1.5 mg PO DAILY 11/21/19 Folic Acid 1 mg PO DAILY #30 tab 11/22/20 Dicyclomine HCl 20 mg PO QID 01/06/21 Metoprolol Tartrate [Lopressor] 100 mg PO BID 02/04/21 Atorvastatin [Lipitor] 20 mg PO HS 03/07/21 LORazepam [Ativan] 0.5 mg PO BID PRN 03/07/21 hydrALAZINE HCL [Apresoline] 50 mg PO BID 30 Days #60 tab 03/10/21 Potassium Chloride ER [K-Dur 20] 20 meq PO TID 06/02/21 allopurinoL [Zyloprim] 200 mg PO DAILY 06/02/21 Albuterol Inhaler [Ventolin Hfa Inhaler] 2 puff INHALATION RT-QID PRN 11/13/21 Ferrous Sulfate [Feosol] 2 tab PO DAILY 11/13/21 Cyanocobalamin [Vitamin B-12] 1,000 mcg PO DAILY 07/15/22 Dulaglutide [Trulicity] 0.75 mg SQ WEEKLY 07/15/22 glipiZIDE 10 mg PO BID 08/04/22 Empagliflozin [Jardiance] 10 mg PO DAILY 11/25/22 Pioglitazone [Actos] 15 ng PO DAILY 11/25/22 Ergocalciferol [Vitamin D2 (1250 Mcg = 88376 Iu)] 1,250 mcg PO Q30D 01/21/23 Pantoprazole [Protonix] 40 mg PO BID 01/21/23 hydroCHLOROthiazide [Hydrodiuril] 12.5 mg PO DAILY 01/21/23 Acetaminophen-Codeine 300-30mg [Tylenol w/codeine #3] 1 tab PO BID PRN 30 Days #60 tab 03/17/23 Baclofen [Lioresal] 1 tab PO TID PRN 30 Days #90 tab 03/17/23 Meloxicam [Mobic] 7.5 mg PO DAILY 30 Days #30 tab 03/17/23 Pregabalin [Lyrica] 100 mg PO TID 30 Days #90 cap 03/17/23 Controlled Substance Measures - Controlled Substance Measures Is patient prescribed a controlled substance at discharge?: Yes When asked, does pt state using other controlled substances?: Yes If prescribed controlled substance>3 days was MAPS reviewed?: Yes
[2023-03-17 15:20] VITALS: BP 121/85; PULSE 105; RESP 18; TEMP 97.6
== END ==
LOC: PNWHC3 13:09
PROVIDERS: ATTEND Specialist
DX: M51.36 Other intervertebral disc degeneration, lumbar region (principal); M47.816 Spondylosis without myelopathy or radiculopathy, lumbar region; G89.29 Other chronic pain; Z79.891 Long term (current) use of opiate analgesic; F17.200 Nicotine dependence, unspecified, uncomplicated; Z91.048 Other nonmedicinal substance allergy status; Z88.1 Allergy status to other antibiotic agents; Z91.041 Radiographic dye allergy status; Z88.2 Allergy status to sulfonamides; Z88.8 Allergy status to other drugs, medicaments and biological substances
CPT/HCPCS: 80307; G0482; G0463; 99212

== ENCOUNTER → 2023-05-12 | Outpatient (CLI) | payer MEDICARE, OTHER ==
[2023-05-12 13:29] VITALS: BP 133/88; PULSE 105; RESP 18; TEMP 98
--- NOTE | 2023-05-12 15:34 | P.PAINPG ---
PQRS Measure Charge Sheet Comment: A 52 yr old male with a history of severe and chronic LBP secondary to lumbar DDD and spondylosis with facet arthropathy without myelopathy presents today for medication refills. Pain level is provoked at 8 /10 in intensity, constant, localized in the lumbar spine, throbbing in character w shooting towards the BLEs. Pain is provoked by bending, lifting or carrying in excess of 10 lbs. Pain is alleviated with medications, injections, ice, heat, PT x 6 wks in Fall 2021, home exercise regimen, reclining and rest. UDS from 03/17/23 reviewed and consistent. Interventional pain procedures completed include LESIs, BL RFA L3-L5 Patient is currently on Tyl #3, Baclofen, Lyrica, Mobic Patient denies any side effects of the medication(s), denies excessive drowsiness or sleepiness, denies suicidal ideation and reports that the current pain medication is helping to control the pain and improve activities of daily living. Patient denies any motor or sensory deficits. Patient denies any fever or night sweats, denies any change in the bowel movements or urination. Physical Examination: -Constitutional: Cooperative. Not in acute distress . - Neurologic: Cranial nerve II to XII intact. No focal neurological deficits. - Psychatric: Alert & oriented x 3. Matching mood & appropriate affect. Judgment and insight intact. - Musculoskeletal: Cervical spine: Muscle bulk/ tone/ strength in the bilateral upper extremities normal Vertebral body tenderness to palpation over Spurling test positive Distraction test positive Facet loading test positive TTP Thoracic spine Muscle bulk / tone/ strength in the bilateral paraspinal muscles normal Vertebral body tender to palpation over Facet loading test positive TTP Lumbar spine: Motor bulk/ tone/ strength lower extremities , thigh and legs : 5/5 Deep tendon reflexes : Normal Knee Jerk. Normal Ankle Jerk . Vertebral body tenderness to palpation over L4 Lumbar Facet Loading Test positive Straight Leg Raise: positive at 30 degrees right side/ left side Gaenslen's Test positive Sacral spine : Severe tenderness over the Sacroiliac joint: right side / left side Range of motion: Flexion of the lumbar spine <60 degrees Range of motion: Extension of the lumbar spine <20 degrees Gaenslen's Test positive right side / left side Abebe test: positive right side / left side Thigh Thrust Test positive right side / left side Sacral Thrust Test positive right side / left side Assessment and plan: Chronic LBP secondary to lumbar DDD, spondylosis with facet arthropathy without myelopathy Chronic and current use of high-risk medication (Opioids). The patient was counseled about risk of opioid use, psychological risk associated with opioids and was orally counseled to not overuse , divert or sell medications. Pt is to store medication in a safe location. The patient is counseled against driving while using narcotic medications and also not to use alcohol or any illicit recreational drugs. Patient verbalized understanding that the lack of compliance will result in failure to renew narcotic prescription(s) as well as possible discharge from the clinic Diagnoses, prognosis and treatment options including but not limited to physical therapy, surgical interventions, interventional therapies and medication management including narcotics and adjuvant medication were discussed. All patient questions answered MAPS reviewed and it was appropriate. UDS reviewed 01/20/23 and inconsistent. Recollected UDS today 03/17/23. Prescription refill for Tyl #3 #60, Lyrica 100mg #90, Baclofen, Mobic w 1 RF. I have spent less than 30 minutes on patient care today. Dr Cullen was available by phone for the evaluation of this patient. The time was used to review the medical records including relevant urine studies and Prescription history (MAPs), review of the available imaging, evaluation and examination of the patient, coordination of care with the medical staff and if applicable referring physicians, as well as creation of the medical record PQRS Narrative: Smoking Status Current every day smoker Narcotic Agreement Date Signed 01/12/22 Hx Alcohol Use (MH) No Home Medications: Ambulatory Orders DULoxetine HCL [Cymbalta] 80 mg PO HS 12/31/14 Tamsulosin HCl [Flomax] 0.4 mg PO HS 12/31/14 Levothyroxine Sodium [Synthroid] 88 mcg PO DAILY 11/17/18 Testosterone Cypionate [Depo-Testosterone] 200 mg IM Q14D 11/17/18 metFORMIN HCL [Glucophage] 1,000 mg PO BID 11/17/18 Cariprazine HCl [Vraylar] 1.5 mg PO DAILY 11/21/19 Folic Acid 1 mg PO DAILY #30 tab 11/22/20 Dicyclomine HCl 20 mg PO QID 01/06/21 Metoprolol Tartrate [Lopressor] 100 mg PO BID 02/04/21 Atorvastatin [Lipitor] 20 mg PO HS 03/07/21 LORazepam [Ativan] 0.5 mg PO BID PRN 03/07/21 hydrALAZINE HCL [Apresoline] 50 mg PO BID 30 Days #60 tab 03/10/21 Potassium Chloride ER [K-Dur 20] 20 meq PO TID 06/02/21 allopurinoL [Zyloprim] 200 mg PO DAILY 06/02/21 Albuterol Inhaler [Ventolin Hfa Inhaler] 2 puff INHALATION RT-QID PRN 11/13/21 Ferrous Sulfate [Feosol] 2 tab PO DAILY 11/13/21 Cyanocobalamin [Vitamin B-12] 1,000 mcg PO DAILY 07/15/22 Dulaglutide [Trulicity] 0.75 mg SQ WEEKLY 07/15/22 glipiZIDE 10 mg PO BID 08/04/22 Empagliflozin [Jardiance] 10 mg PO DAILY 11/25/22 Pioglitazone [Actos] 15 ng PO DAILY 11/25/22 Ergocalciferol [Vitamin D2 (1250 Mcg = 88595 Iu)] 1,250 mcg PO Q30D 01/21/23 Pantoprazole [Protonix] 40 mg PO BID 01/21/23 hydroCHLOROthiazide [Hydrodiuril] 12.5 mg PO DAILY 01/21/23 Acetaminophen-Codeine 300-30mg [Tylenol w/codeine #3] 1 tab PO BID PRN 30 Days #60 tab 05/12/23 Baclofen [Lioresal] 1 tab PO TID PRN 30 Days #90 tab 05/12/23 Meloxicam [Mobic] 7.5 mg PO DAILY 30 Days #30 tab 05/12/23 Pregabalin [Lyrica] 100 mg PO TID 30 Days #90 cap 05/12/23 Controlled Substance Measures - Controlled Substance Measures Is patient prescribed a controlled substance at discharge?: Yes When asked, does pt state using other controlled substances?: Yes If prescribed controlled substance>3 days was MAPS reviewed?: Yes
== END ==
LOC: PNWHC3 13:06
PROVIDERS: ATTEND Specialist
DX: M51.36 Other intervertebral disc degeneration, lumbar region (principal); M47.816 Spondylosis without myelopathy or radiculopathy, lumbar region; G89.29 Other chronic pain; Z79.891 Long term (current) use of opiate analgesic; F17.200 Nicotine dependence, unspecified, uncomplicated; Z91.048 Other nonmedicinal substance allergy status; Z88.1 Allergy status to other antibiotic agents; Z91.041 Radiographic dye allergy status; Z88.2 Allergy status to sulfonamides
CPT/HCPCS: 99211

== ENCOUNTER → 2023-06-16 | Outpatient (CLI) | payer MEDICARE, OTHER ==
[2023-06-16 14:56] LABS: Basophils # (A) 0.09 X 10*3/uL (0.00-0.10); Basophils % (A) 1.1 %; Eosinophils # (A) 0.49 X 10*3/uL (0.04-0.35); Eosinophils % (A) 5.8 %; HCT 46.6 % (39.6-50.0); HGB 14.8 d/dL (13.0-17.0); Lymphocytes # (A) 1.91 X 10*3/uL (0.90-5.00); Lymphocytes % (A) 22.8 %; MCHC 31.8 d/dL (32.0-37.0); MCV 100.6 FL (80.0-97.0); Mean Platelet Volume 11.7 FL (9.5-12.2); Monocytes # (A) 0.75 X 10*3/uL (0.20-1.00); Monocytes % (A) 8.9 %; NRBC Per 100 WBC 0 X 10*3/uL (0.00-0.01); Neutrophils # (A) 5.13 X 10*3/uL (1.80-7.70); Neutrophils % (A) 61.2 %; Platelet Count 278 X 10*3/uL (140-440); RBC 4.63 X 10*6/uL (4.40-5.60); RDW 13.7 % (11.5-14.5); WBC 8.39 X 10*3/uL (4.50-10.00)
[2023-06-16 16:15] LABS: BUN/Creat Ratio 8.13 Ratio (12.00-20.00); Blood Urea Nitrogen 12.2 mg/dL (9.0-27.0); Calcium 10.5 mg/dL (8.7-10.3); Carbon Dioxide 26.7 mmol/L (21.6-31.8); Chloride 98 mmol/L (96-109); Glucose 221 mg/dL (70-110); Potassium 4.3 mmol/L (3.5-5.5); Sodium 139 mmol/L (135-145)
== END | disposition home or self-care (01) ==
LOC: LABPAT 10:04
PROVIDERS: ATTEND Orthopaedic Surgery Hand Surgery
DX: Z01.812 Encounter for preprocedural laboratory examination (principal); M65.4 Radial styloid tenosynovitis [de Quervain]; I44.4 Left anterior fascicular block; R00.1 Bradycardia, unspecified; R94.31 Abnormal electrocardiogram [ECG] [EKG]
CPT/HCPCS: 80048; 85025; 93005

== ENCOUNTER → 2023-06-23 | Day surgery (SDC) | payer MEDICARE, OTHER ==
--- NOTE | 2023-06-22 10:46 | P.HPOR ---
History of Present Illness H&P Date: 06/22/23 Subjective: This is a 52 year old male that presents today for follow up evaluation regarding a several month history of left wrist pain and swelling and right thumb pain with stiffness locking and catching. He denies any injury or inciting event. He has tried bracing of the left wrist with some relief. He underwent steroid injections of left DeQuervains and a right trigger thumb in November of 2022 with temporary relief. He states the left wrist continues to bother him near the radial portion of the wrist. Physical Examination: RUE: AIN/PIN/Radial/Ulnar/Median motor intact. Radial/Ulnar/Median SILT. 2+/4 Radial/Ulnar pulses palpated. 5/5 APB, 5/5 FDI. Negative Finkelsteins, negative CMC grind, negative Durkan's compression. Mild TTP over thumb A1 bala with locking and catching. LUE: AIN/PIN/Radial/Ulnar/Median motor intact. Radial/Ulnar/Median SILT. 2+/4 Radial/Ulnar pulses palpated. 5/5 APB, 5/5 FDI. Positive Finkelsteins, negative CMC grind, negative Durkan's compression. Imaging: X-rays of the right hand 3V taken in office today demonstrate no acute fracture/dislocation. X-rays of the left hand 3V taken in office today demonstrate no acute fracture/dislocation. Impression: 1.) Left DeQuervains tenosynovitis 2.) Right trigger thumb Plan: Diagnosis and treatment options were discussed with the patient. He would like to proceed with steroid injection for the right trigger thumb again and would like to proceed with left first dorsal compartment release for his DeQuervains. Written procedural consent was obtained prior to injection. The palmar skin of the right hand was prepped with an alcohol swab. A 1cc mixture of 1% Lidocaine and Depomedrol was injected into the area of the right thumb A1 bala without complication. Band-Aid was placed and the patient tolerated the procedure well. Risks and benefits of surgery including bleeding, infection, damage to surrounding tissue, need for further surgery, residual numbness were discussed and the patient wished to go forward with surgery. The patient is agreeable with this plan. CC: Tristin Bosch DO Orthopedic Hand/Upper Extremity Surgeon Past Medical History Past Medical History: Asthma, Coronary Artery Disease (CAD), Cancer, Chest Pain / Angina, Heart Failure, CVA/TIA, Diabetes Mellitus, Eye Disorder, GERD/Reflux, Hypertension, Liver Disease, Musculoskeletal Disorder, Prostate Disorder, Renal Disease, Skin Disorder, Sleep Apnea/CPAP/BIPAP, Vascular Disorder Additional Past Medical History / Comment(s): TMJ, sinus problems, eczema, kidney stones, diverticulitis, back pain w/ DDD, physical limitations. NT Bilat hands, Skin cancer. Hyperflexia; sl cataracts. CVA 11/2018-no residual effects, hx. of elev. WBC level-sees Dr. Luna-states just normal for him, PVD. Kidney dx stage 3. Fatty liver. uses CPAP History of Any Multi-Drug Resistant Organisms: None Reported Past Surgical History: Adenoidectomy, Hernia Repair, Orthopedic Surgery, Tonsillectomy Additional Past Surgical History / Comment(s): Urolift, wart on uvula removed, pain clinic procedures, arthroscopies left knee x2 Past Anesthesia/Blood Transfusion Reactions: No Reported Reaction Smoking Status: Former smoker - Past Family History Mother Family Medical History: Cancer Father Family Medical History: Cancer Medications and Allergies Home Medications Medication Instructions Recorded Confirmed Type DULoxetine HCL [Cymbalta] 60 mg PO HS 12/31/14 06/16/23 History Tamsulosin HCl [Flomax] 0.4 mg PO HS 12/31/14 06/16/23 History Levothyroxine Sodium [Synthroid] 88 mcg PO DAILY 11/17/18 06/16/23 History Testosterone Cypionate 200 mg IM Q14D 11/17/18 06/16/23 History [Depo-Testosterone] metFORMIN HCL [Glucophage] 500 mg PO BID 11/17/18 06/16/23 History Cariprazine HCl [Vraylar] 1.5 mg PO DAILY 11/21/19 06/16/23 History Folic Acid 1 mg PO DAILY #30 tab 11/22/20 06/16/23 Rx Dicyclomine HCl 20 mg PO QID 01/06/21 06/16/23 History Metoprolol Tartrate [Lopressor] 100 mg PO BID 02/04/21 06/16/23 History Atorvastatin [Lipitor] 20 mg PO HS 03/07/21 06/16/23 History hydrALAZINE HCL [Apresoline] 50 mg PO BID 30 Days #60 tab 03/10/21 06/16/23 Rx allopurinoL [Zyloprim] 200 mg PO DAILY 06/02/21 06/16/23 History Albuterol Inhaler [Ventolin Hfa 2 puff INHALATION RT-QID PRN 11/13/21 06/16/23 History Inhaler] Ferrous Sulfate [Feosol] 2 tab PO DAILY 11/13/21 06/16/23 History Empagliflozin [Jardiance] 25 mg PO DAILY 11/25/22 06/16/23 History Pioglitazone [Actos] 15 mg PO DAILY 11/25/22 06/16/23 History Ergocalciferol [Vitamin D2 (1250 1,250 mcg PO Q30D 01/21/23 06/16/23 History Mcg = 03680 Iu)] Pantoprazole [Protonix] 40 mg PO BID 01/21/23 06/16/23 History hydroCHLOROthiazide [Hydrodiuril] 12.5 mg PO DAILY 01/21/23 06/16/23 History Acetaminophen-Codeine 300-30mg 1 tab PO BID PRN 30 Days #60 tab 05/12/23 06/16/23 Rx [Tylenol w/codeine #3] Baclofen [Lioresal] 1 tab PO TID PRN 30 Days #90 tab 05/12/23 06/16/23 Rx Meloxicam [Mobic] 7.5 mg PO DAILY 30 Days #30 tab 05/12/23 06/16/23 Rx Pregabalin [Lyrica] 100 mg PO TID 30 Days #90 cap 05/12/23 06/16/23 Rx Semaglutide [Ozempic] 1 mg SQ SA 06/16/23 06/16/23 History Allergies Allergy/AdvReac Type Severity Reaction Status Date / Time adhesive tape Allergy Rash/Hives Verified 06/16/23 10:30 cefaclor [From Ceclor] Allergy Rash/Hives Verified 06/16/23 10:30 dapagliflozin [From Farxiga] Allergy yeast Verified 06/16/23 10:30 infections Iodinated Contrast Media Allergy Rash/Hives,throat Verified 06/16/23 10:30 [Iodinated Contrast Media - swelling IV Dye] propoxyphene napsylate Allergy Rash/Hives Verified 06/16/23 10:30 [From Darvocet-N 100] Sulfa (Sulfonamide Allergy Dyspnea Verified 06/16/23 10:30 Antibiotics) sulfamethoxazole Allergy Rapid Verified 06/16/23 10:30 [From Bactrim] Heart Rate trimethoprim [From Bactrim] Allergy Rapid Verified 06/16/23 10:30 Heart Rate Physical Examination Osteopathic Statement: *. No significant issues noted on an osteopathic structural exam other than those noted in the History and Physical/Consult.
[~2023-06-23] MED LIST changes: +BUPIVACAINE (PF) 0.5% 30 ML VIAL SQ ONE; -DEXAMETHASONE SOD PHOSPHATE 4 MG/ML 1 ML VIAL IV ONE; -EPINEPHrine (PF) 1 ML in SODIUM CHLORIDE 0.9% IRRIGATIO 3,000 ML IRRIGATION ONE; -INSULIN ASPART (NovoLOG) 100 UNIT/ML VIAL SQ ONE; +LIDOCAINE 1% (10MG/ML) FOR IV START INTRADERMA ONE; -LIDOCAINE 1% (10MG/ML) FOR IV START INTRADERMA PRN; +LIDOCAINE 2% (PF) 20 MG/ML 10 ML AMP SQ ONE; +LIDOCAINE 2% INJ 20 MG/ML (2 ML VIAL) ONE; -ONDANSETRON 4 MG/2 ML VIAL IVP ONE; +ONDANSETRON 4 MG/2 ML VIAL ONE; +Pre Op ABX Message 1 EACH MISC MISCELLANE ONE
[2023-06-23 06:49] VITALS: TEMP 97.4
[2023-06-23 07:12] LABS: Glucose,Whole Blood 200 mg/dL (70-110)
--- NOTE | 2023-06-23 07:45 | P.OP ---
Date of Procedure: 06/23/23 Preoperative Diagnosis: Left DeQuervains tenosynovitis Postoperative Diagnosis: Left DeQuervains tenosynovitis Procedure(s) Performed: Left first dorsal compartment release Anesthesia: MAC Surgeon: Shukri Bosch Instrument And Electrical Technician #1: Dann mR Estimated Blood Loss (ml): 0 Pathology: none sent Condition: stable Disposition: PACU Description of Procedure: This is a 52 year old male who presents today for a left first dorsal compartment release after having failed conservative treatment. Risks and benefits of surgery were discussed with the patient including bleeding, damage to surrounding tissue, infection, need for further surgery as well as risks of anesthesia including pulmonary embolism and even and the patient wished to proceed with surgical intervention. The patients was seen in the pre-operative area by myself. Consent and H&P were completed and updated. The correct extremity was marked in the pre-operative area by myself and all other questions were answered. Operative Narrative: The patient was brought to the operating room by the department of anesthesia. They remained on the portable stretcher and a rolling hand table was brought to the side of the operative extremity. The patient was then drifted off to sleep by the department of anesthesia. A nonsterile tourniquet was then applied to the operative extremity and the left upper extremity was then prepped and draped in normal sterile fashion. Pre-operative time out was performed indicating the correct patient, procedure and laterality. All in the room agreed. MAC anesthesia was utilized and a 50:50 mixture of 1% Lidocaine and 0.5% bupivacaine was injected into the subcutaneous tissues of the radial wrist skin, 8ccs total. Pre-operative antibiotics were given prior to skin incision. The operative extremity was the exsanguinated with an esmarch bandage and the tourniquet was inflated to 250mmHg. 15 blade scalpel was used to make a horizontal skin incision centered over the first dorsal compartment of the left wrist. Blunt dissection was taken down to the proximal edge of the first dorsal compartment while taking care to identify and protect branches of the superficial radial sensory nerve. The first dorsal compartment was released in its entirety from proximal to distal. APL and EPB tendons were identified and an accessory epb tendon in it's own compartment was identified and also released. Skin closure was performed with 4-0 nylon suture. Sterile soft dressing was applied consisting of 4x4's cast padding and an carlos wrap. The patient was then woken by the department of anesthesia and transferred to PACU in stable condition. Dann ALSTON was present to assist in the procedure. Shukri Bosch D.O. Orthopedic Hand/Upper Extremity Surgeon
[2023-06-23 07:48] VITALS: RESP 16
[2023-06-23 08:14] VITALS: BP 104/71; PULSE 93
== END | disposition home or self-care (01) ==
LOC: OR 06:25
PROVIDERS: ATTEND Orthopaedic Surgery Hand Surgery
DX: M65.4 Radial styloid tenosynovitis [de Quervain] (principal); M65.311 Trigger thumb, right thumb; J45.909 Unspecified asthma, uncomplicated; K76.0 Fatty (change of) liver, not elsewhere classified; I25.10 Atherosclerotic heart disease of native coronary artery without angina pectoris; E11.36 Type 2 diabetes mellitus with diabetic cataract; I50.9 Heart failure, unspecified; G47.33 Obstructive sleep apnea (adult) (pediatric); K21.9 Gastro-esophageal reflux disease without esophagitis; I13.0 Hypertensive heart and chronic kidney disease with heart failure and stage 1 through stage 4 chronic kidney disease, or unspecified chronic kidney disease; Z87.442 Personal history of urinary calculi; Z86.73 Personal history of transient ischemic attack (TIA), and cerebral infarction without residual deficits; Z85.828 Personal history of other malignant neoplasm of skin; Z87.891 Personal history of nicotine dependence; Z79.890 Hormone replacement therapy; Z79.84 Long term (current) use of oral hypoglycemic drugs; Z79.899 Other long term (current) drug therapy
CPT/HCPCS: 25000; J2250; J2001 ×2; J2405; J3010; J2704; J0665

== ENCOUNTER → 2023-07-07 | Outpatient (CLI) | payer MEDICARE, OTHER ==
[2023-07-07 13:22] VITALS: BP 121/84; PULSE 101; RESP 16; TEMP 98.2
--- NOTE | 2023-07-07 14:19 | P.PAINPG ---
PQRS Measure Charge Sheet Comment: A 52 yr old male with a history of severe and chronic LBP secondary to lumbar DDD and spondylosis with facet arthropathy without myelopathy presents today for medication refills. Pain level is provoked at 8 /10 in intensity, constant, localized in the lumbar spine, throbbing in character w shooting towards the BLEs. Pain is provoked by bending, lifting or carrying in excess of 10 lbs. Pain is alleviated with medications, injections, ice, heat, PT x 6 wks in Fall 2021, home exercise regimen, reclining and rest. Interventional pain procedures completed include LESIs, BL RFA L3-L5 (Aug 2022) Patient is currently on Tyl #3, Baclofen, Lyrica, Mobic Patient denies any side effects of the medication(s), denies excessive drowsiness or sleepiness, denies suicidal ideation and reports that the current pain medication is helping to control the pain and improve activities of daily living. Patient denies any motor or sensory deficits. Patient denies any fever or night sweats, denies any change in the bowel movements or urination. Physical Examination: -Constitutional: Cooperative. Not in acute distress . - Neurologic: Cranial nerve II to XII intact. No focal neurological deficits. - Psychatric: Alert & oriented x 3. Matching mood & appropriate affect. Judgment and insight intact. - Musculoskeletal: Cervical spine: Muscle bulk/ tone/ strength in the bilateral upper extremities normal Vertebral body tenderness to palpation over Spurling test positive Distraction test positive Facet loading test positive TTP Thoracic spine Muscle bulk / tone/ strength in the bilateral paraspinal muscles normal Vertebral body tender to palpation over Facet loading test positive TTP Lumbar spine: Motor bulk/ tone/ strength lower extremities , thigh and legs : 5/5 Deep tendon reflexes : Normal Knee Jerk. Normal Ankle Jerk . Vertebral body tenderness to palpation Lumbar Facet Loading Test positive over BL L4-L5, L5-S1 Straight Leg Raise: positive at 30 degrees right side/ left side Gaenslen's Test positive Sacral spine : Severe tenderness over the Sacroiliac joint: right side / left side Range of motion: Flexion of the lumbar spine <60 degrees Range of motion: Extension of the lumbar spine <20 degrees Gaenslen's Test positive right side / left side Abebe test: positive right side / left side Thigh Thrust Test positive right side / left side Sacral Thrust Test positive right side / left side Assessment and plan: Chronic LBP secondary to lumbar DDD, spondylosis with facet arthropathy without myelopathy Chronic and current use of high-risk medication (Opioids). The patient was counseled about risk of opioid use, psychological risk associated with opioids and was orally counseled to not overuse , divert or sell medications. Pt is to store medication in a safe location. The patient is counseled against driving while using narcotic medications and also not to use alcohol or any illicit recreational drugs. Patient verbalized understanding that the lack of compliance will result in failure to renew narcotic prescription(s) as well as possible discharge from the clinic Diagnoses, prognosis and treatment options including but not limited to physical therapy, surgical interventions, interventional therapies and medication management including narcotics and adjuvant medication were discussed. All patient questions answered MAPS reviewed and it was appropriate. UDS from 03/17/23 reviewed and consistent. Prescription refill for Tyl #3 #60, Lyrica 100mg #90, Baclofen w 1 RF. Will discontinue Mobic due to new CKD diagnosis. I have spent less than 30 minutes on patient care today. Dr Cullen was available by phone for the evaluation of this patient. The time was used to review the medical records including relevant urine studies and Prescription history (MAPs), review of the available imaging, evaluation and examination of the patient, coordination of care with the medical staff and if applicable referring physicians, as well as creation of the medical record PQRS Narrative: Smoking Status Current every day smoker Narcotic Agreement Date Signed 01/12/22 Hx Alcohol Use (MH) No Home Medications: Ambulatory Orders DULoxetine HCL [Cymbalta] 60 mg PO HS 12/31/14 Tamsulosin HCl [Flomax] 0.4 mg PO HS 12/31/14 Levothyroxine Sodium [Synthroid] 88 mcg PO DAILY 11/17/18 Testosterone Cypionate [Depo-Testosterone] 200 mg IM Q14D 11/17/18 metFORMIN HCL [Glucophage] 500 mg PO BID 11/17/18 Cariprazine HCl [Vraylar] 1.5 mg PO DAILY 11/21/19 Folic Acid 1 mg PO DAILY #30 tab 11/22/20 Dicyclomine HCl 20 mg PO QID 01/06/21 Metoprolol Tartrate [Lopressor] 100 mg PO BID 02/04/21 Atorvastatin [Lipitor] 20 mg PO HS 03/07/21 hydrALAZINE HCL [Apresoline] 50 mg PO BID 30 Days #60 tab 03/10/21 allopurinoL [Zyloprim] 200 mg PO DAILY 06/02/21 Albuterol Inhaler [Ventolin Hfa Inhaler] 2 puff INHALATION RT-QID PRN 11/13/21 Ferrous Sulfate [Feosol] 2 tab PO DAILY 11/13/21 Empagliflozin [Jardiance] 25 mg PO DAILY 11/25/22 Pioglitazone [Actos] 15 mg PO DAILY 11/25/22 Ergocalciferol [Vitamin D2 (1250 Mcg = 74173 Iu)] 1,250 mcg PO Q30D 01/21/23 Pantoprazole [Protonix] 40 mg PO BID 01/21/23 hydroCHLOROthiazide [Hydrodiuril] 12.5 mg PO DAILY 01/21/23 Semaglutide [Ozempic] 1 mg SQ SA 06/16/23 Acetaminophen-Codeine 300-30mg [Tylenol w/codeine #3] 1 tab PO BID PRN 30 Days #60 tab 07/07/23 Baclofen [Lioresal] 1 tab PO TID PRN 30 Days #90 tab 07/07/23 Pregabalin [Lyrica] 100 mg PO TID 30 Days #90 cap 07/07/23 Controlled Substance Measures - Controlled Substance Measures Is patient prescribed a controlled substance at discharge?: Yes When asked, does pt state using other controlled substances?: Yes If prescribed controlled substance>3 days was MAPS reviewed?: Yes
== END ==
LOC: PNWHC3 12:52
PROVIDERS: ATTEND Specialist
DX: M51.37 Other intervertebral disc degeneration, lumbosacral region (principal); M47.817 Spondylosis without myelopathy or radiculopathy, lumbosacral region; G89.29 Other chronic pain; F17.200 Nicotine dependence, unspecified, uncomplicated; Z79.891 Long term (current) use of opiate analgesic; Z91.048 Other nonmedicinal substance allergy status; Z88.8 Allergy status to other drugs, medicaments and biological substances; Z88.2 Allergy status to sulfonamides; Z91.041 Radiographic dye allergy status; Z88.1 Allergy status to other antibiotic agents
CPT/HCPCS: 99211

== ENCOUNTER → 2023-08-19 | Outpatient (CLI) | payer MEDICARE, OTHER ==
--- NOTE | 2023-08-19 19:11 | XR ---
EXAMINATION TYPE: XR abdomen 2V DATE OF EXAM: 08/19/2023 3:28 PM CLINICAL INDICATION:Male, 52 years old with history of [id number] LLQ PAIN; [facility] COMPARISON: None. TECHNIQUE: Two views of the abdomen were obtained. FINDINGS: The bowel gas pattern is nonspecific without dilated loops of small or large bowel. There i s no evidence for organomegaly or pneumoperitoneum. The osseous structures are intact. No abnormal calcifications are present. Fecal material and gas are demonstrated throughout the colon and rectum. Mild multilevel degeneration changes of the spine. IMPRESSION: Nonspecific bowel gas pattern without radiographic evidence for acute process.
== END | disposition home or self-care (01) ==
LOC: RADXRYALE 15:01
PROVIDERS: ATTEND Physician Assistant Medical
DX: R10.814 Left lower quadrant abdominal tenderness (principal)
CPT/HCPCS: 74019

== ENCOUNTER → 2023-09-01 | Outpatient (CLI) | payer MEDICARE, OTHER ==
[2023-09-01 13:27] VITALS: BP 137/86; PULSE 85; RESP 15; TEMP 97.9
--- NOTE | 2023-09-01 14:59 | P.PAINPG ---
PQRS Measure Charge Sheet Comment: A 52 yr old male with a history of severe and chronic LBP secondary to lumbar DDD and spondylosis with facet arthropathy without myelopathy presents today for medication refills. Pain level is provoked at 10/10 in intensity, constant, localized in the lumbar spine, throbbing in character without shooting pain. Pain is provoked by bending, lifting in excess of 10 lbs. Pain is alleviated with medications, injections, ice, heat, PT x 6 wks in Fall 2021, home exercise regimen, reclining and rest. Interventional pain procedures completed include Danae, BL RFA L3-L5 (Aug 2022) Patient is currently on Tyl #3, Baclofen, Lyrica, Mobic Patient denies any side effects of the medication(s), denies excessive d rowsiness or sleepiness, denies suicidal ideation and reports that the current pain medication is helping to control the pain and improve activities of daily living. Patient denies any motor or sensory deficits. Patient denies any fever or night sweats, denies any change in the bowel movements or urination. Physical Examination: -Constitutional: Cooperative. Not in acute distress . - Neurologic: Cranial nerve II to XII intact. No focal neurological deficits. - Psychatric: Alert & oriented x 3. Matching mood & appropriate affect. Judgment and insight intact. - Musculoskeletal: Cervical spine: Muscle bulk/ tone/ strength in the bilateral upper extremities normal Vertebral body tenderness to palpation over Spurling test positive Distraction test positive Facet loading test positive TTP Thoracic spine Muscle bulk / tone/ strength in the bilateral paraspinal muscles normal Vertebral body tender to palpation over Facet loading test positive TTP Lumbar spine: Motor bulk/ tone/ strength lower extremities , thigh and legs : 5/5 Deep tendon reflexes : Normal Knee Jerk. Normal Ankle Jerk . Vertebral body tenderness to palpation over L3, L4, L5 Lumbar Facet Loading Test positive Straight Leg Raise: positive at 30 degrees right side/ left side Gaenslen's Test positive Sacral spine : Severe tenderness over the Sacroiliac joint: right side / left side Range of motion: Flexion of the lumbar spine <60 degrees Range of motion: Extension of the lumbar spine <20 degrees Gaenslen's Test positive right side / left side Abebe test: positive right side / left side Thigh Thrust Test positive right side / left side Sacral Thrust Test positive right side / left side Assessment and plan: Chronic LBP secondary to lumbar DDD, spondylosis with facet arthropathy without myelopathy Chronic and current use of high-risk medication (Opioids). The patient was counseled about risk of opioid use, psychological risk associated with opioids and was orally counseled to not overuse , divert or sell medications. Pt is to store medication in a safe location. The patient is counseled against driving while using narcotic medications and also not to use alcohol or any illicit recreational drugs. Patient verbalized understanding that the lack of compliance will result in failure to renew narcotic prescription(s) as well as possible discharge from the clinic Diagnoses, prognosis and treatment options including but not limited to physical therapy, surgical interventions, interventional therapies and medication management including narcotics and adjuvant medication were discussed. All patient questions answered MAPS reviewed and it was appropriate. UDS from 03/17/23 reviewed and consistent. Prescription refill for Tyl #3 #60, Lyrica 100mg #90, Baclofen w 1 RF. I have spent less than 30 minutes on patient care today. Dr Cullen was available by phone for the evaluation of this patient. The time was used to review the medical records including relevant urine studies and Prescription history (MAPs), review of the available imaging, evaluation and examination of the patient, coordination of care with the medical staff and if applicable referring physicians, as well as creation of the medical record PQRS Narrative: Smoking Status Current every day smoker Narcotic Agreement Date Signed 07/07/23 Hx Alcohol Use (MH) No Home Medications: Ambulatory Orders DULoxetine HCL [Cymbalta] 60 mg PO HS 12/31/14 Tamsulosin HCl [Flomax] 0.4 mg PO HS 12/31/14 Levothyroxine Sodium [Synthroid] 88 mcg PO DAILY 11/17/18 Testosterone Cypionate [Depo-Testosterone] 200 mg IM Q14D 11/17/18 metFORMIN HCL [Glucophage] 500 mg PO BID 11/17/18 Cariprazine HCl [Vraylar] 1.5 mg PO DAILY 11/21/19 Folic Acid 1 mg PO DAILY #30 tab 11/22/20 Dicyclomine HCl 20 mg PO QID 01/06/21 Metoprolol Tartrate [Lopressor] 100 mg PO BID 02/04/21 Atorvastatin [Lipitor] 20 mg PO HS 03/07/21 hydrALAZINE HCL [Apresoline] 50 mg PO BID 30 Days #60 tab 03/10/21 allopurinoL [Zyloprim] 200 mg PO DAILY 06/02/21 Albuterol Inhaler [Ventolin Hfa Inhaler] 2 puff INHALATION RT-QID PRN 11/13/21 Ferrous Sulfate [Feosol] 2 tab PO DAILY 11/13/21 Empagliflozin [Jardiance] 25 mg PO DAILY 11/25/22 Pioglitazone [Actos] 15 mg PO DAILY 11/25/22 Ergocalciferol [Vitamin D2 (1250 Mcg = 65029 Iu)] 1,250 mcg PO Q30D 01/21/23 Pantoprazole [Protonix] 40 mg PO BID 01/21/23 hydroCHLOROthiazide [Hydrodiuril] 12.5 mg PO DAILY 01/21/23 Semaglutide [Ozempic] 1 mg SQ SA 06/16/23 Acetaminophen-Codeine 300-30mg [Tylenol w/codeine #3] 1 tab PO Q8H PRN 30 Days #90 tablet 09/01/23 Baclofen [Lioresal] 10 mg PO TID 30 Days #90 tablet 09/01/23 Pregabalin [Lyrica] 100 mg PO TID 30 Days #90 cap 09/01/23 Controlled Substance Measures - Controlled Substance Measures Is patient prescribed a controlled substance at discharge?: Yes When asked, does pt state using other controlled substances?: Yes If prescribed controlled substance>3 days was MAPS reviewed?: Yes
== END ==
LOC: PNWHC3 12:44
PROVIDERS: ATTEND Specialist
DX: M51.36 Other intervertebral disc degeneration, lumbar region (principal); M47.816 Spondylosis without myelopathy or radiculopathy, lumbar region; M54.50 Low back pain, unspecified; G89.29 Other chronic pain; F17.200 Nicotine dependence, unspecified, uncomplicated; Z79.891 Long term (current) use of opiate analgesic; Z91.048 Other nonmedicinal substance allergy status; Z91.041 Radiographic dye allergy status; Z88.8 Allergy status to other drugs, medicaments and biological substances; Z88.2 Allergy status to sulfonamides; Z88.1 Allergy status to other antibiotic agents
CPT/HCPCS: 99211

== ENCOUNTER → 2023-10-06 | Outpatient (CLI) | payer MEDICARE ==
[2023-10-06 15:28] LABS: BUN/Creat Ratio 9.23 Ratio (12.00-20.00); Calcium 10.3 mg/dL (8.7-10.3); Carbon Dioxide 26.7 mmol/L (21.6-31.8); Chloride 96 mmol/L (96-109); Glucose 140 mg/dL (70-110); Potassium 3.7 mmol/L (3.5-5.5); Sodium 138 mmol/L (135-145)
[2023-10-06 21:29] LABS: Appearance,Urine Clear (Clear); Bilirubin,Urine Negative (Negative); Blood,Urine Negative (Negative); Color,Urine Yellow (Yellow); Ketones,Urine Negative (Negative); Nitrite,Urine Negative (Negative); PH, Urine 5.5; Specific Gravity,Urine 1.017 (1.001-1.030); Urobilinogen,Urine 0.2 E.U./DL
== END | disposition home or self-care (01) ==
LOC: LABWHC1 11:51
PROVIDERS: ATTEND Urology
DX: Z01.812 Encounter for preprocedural laboratory examination (principal); N40.1 Benign prostatic hyperplasia with lower urinary tract symptoms; R35.0 Frequency of micturition
CPT/HCPCS: 36415; 80048; 81003; 87086

== ENCOUNTER 2023-10-12 07:39 | Day surgery (SDC) | payer MEDICARE, OTHER ==
[~2023-10-12 07:39] MED LIST changes: -BUPIVACAINE (PF) 0.5% 30 ML VIAL SQ ONE; +DEXAMETHASONE SOD PHOSPHATE 4 MG/ML 1 ML VIAL IV ONE; -LACTATED RINGERS 1,000 ML IV SCH; -LIDOCAINE 1% (10MG/ML) FOR IV START INTRADERMA ONE; +LIDOCAINE 1% (10MG/ML) FOR IV START INTRADERMA PRN; -LIDOCAINE 2% (PF) 20 MG/ML 10 ML AMP SQ ONE; -LIDOCAINE 2% INJ 20 MG/ML (2 ML VIAL) ONE; -MIDAZOLAM 2 MG/2 ML VIAL ONE; +ONDANSETRON 4 MG/2 ML VIAL IVP ONE; -ONDANSETRON 4 MG/2 ML VIAL ONE; -PROPOFOL 10 MG/ML 20 ML VIAL IV ONE; -Pre Op ABX Message 1 EACH MISC MISCELLANE ONE; +droPERidol 5 MG/2 ML VIAL IVP ONE; -fentaNYL (PF) 50 MCG/ML 2 ML AMP ONE
--- NOTE | 2023-10-12 07:48 | P.HPIHPCON ---
History of Present Illness H&P Date: 10/12/23 Chief Complaint: BPH This is a 53-year-old male with history of obstructive urinary symptoms despite medical therapy. He underwent a cystoscopy that showed evidence of an obstructive prostate. Option of a urolift versus TURP was discussed with him in detail. Agreed to proceed with Urolift aware of the risks which includes but not limited to bleeding, infection, persistent symptoms, urinary incontinence. Risk of anesthesia was also discussed. He understood all the risk and agreed to proceed Consent for Procedure: I have explained the operation/procedure to the patient, including the risks, benefits, side effects, alternative therapies (including not receiving the proposed treatment or service), the likelihood of the patient achieving his/her goals, and potential recuperation problems for the procedure/sedation/analgesia, as well as any blood products, if indicated. I also explained to the patient the risks, benefits and side effects of the alternatives, as well as the risks related to not receiving the proposed procedure, care, treatment, or services. Past Medical History Past Medical History: Asthma, Coronary Artery Disease (CAD), Cancer, Chest Pain / Angina, Heart Failure, CVA/TIA, Diabetes Mellitus, Eye Disorder, GERD/Reflux, Hypertension, Liver Disease, Musculoskeletal Disorder, Prostate Disorder, Renal Disease, Skin Disorder, Sleep Apnea/CPAP/BIPAP, Vascular Disorder Additional Past Medical History / Comment(s): TMJ, sinus problems, eczema, kidney stones, diverticulitis, back pain w/ DDD, physical limitations. NT Bilat hands, Skin cancer. Hyperflexia; sl cataracts. CVA 11/2018-no residual effects, hx. of elev. WBC level-sees Dr. Luna-states just normal for him, PVD. Kidney dx stage 3. Fatty liver. uses CPAP History of Any Multi-Drug Resistant Organisms: None Reported Past Surgical History: Adenoidectomy, Hernia Repair, Orthopedic Surgery, Tonsillectomy Additional Past Surgical History / Comment(s): Urolift, wart on uvula removed, pain clinic procedures, arthroscopies left knee x2 Past Anesthesia/Blood Transfusion Reactions: No Reported Reaction Smoking Status: Former smoker - Past Family History Mother Family Medical History: Cancer Father Family Medical History: Cancer Medications and Allergies Home Medications Medication Instructions Recorded Confirmed Type DULoxetine HCL [Cymbalta] 60 mg PO HS 12/31/14 10/07/23 History Tamsulosin HCl [Flomax] 0.4 mg PO HS 12/31/14 10/07/23 History Levothyroxine Sodium [Synthroid] 88 mcg PO DAILY 11/17/18 10/07/23 History Testosterone Cypionate 200 mg IM Q14D 11/17/18 10/07/23 History [Depo-Testosterone] metFORMIN HCL [Glucophage] 500 mg PO BID 11/17/18 10/07/23 History Cariprazine HCl [Vraylar] 3 mg PO DAILY 11/21/19 10/07/23 History Dicyclomine HCl 20 mg PO QID 01/06/21 10/07/23 History Metoprolol Tartrate [Lopressor] 100 mg PO BID 02/04/21 10/07/23 History Atorvastatin [Lipitor] 20 mg PO HS 03/07/21 10/07/23 History hydrALAZINE HCL [Apresoline] 50 mg PO BID 30 Days #60 tab 03/10/21 10/07/23 Rx allopurinoL [Zyloprim] 200 mg PO DAILY 06/02/21 10/07/23 History Albuterol Inhaler [Ventolin Hfa 2 puff INHALATION RT-QID PRN 11/13/21 10/07/23 History Inhaler] Ferrous Sulfate [Feosol] 2 tab PO DAILY 11/13/21 10/07/23 History Empagliflozin [Jardiance] 25 mg PO DAILY 11/25/22 10/07/23 History Pioglitazone [Actos] 15 mg PO DAILY 11/25/22 10/07/23 History Ergocalciferol [Vitamin D2 (1250 1,250 mcg PO Q30D 01/21/23 10/07/23 History Mcg = 37393 Iu)] Pantoprazole [Protonix] 40 mg PO BID 01/21/23 10/07/23 History hydroCHLOROthiazide [Hydrodiuril] 12.5 mg PO DAILY 01/21/23 10/07/23 History Semaglutide [Ozempic] 2 mg SQ SA 06/16/23 10/07/23 History Acetaminophen-Codeine 300-30mg 1 tab PO Q8H PRN 30 Days #90 tablet 09/01/23 10/07/23 Rx [Tylenol w/codeine #3] Baclofen [Lioresal] 10 mg PO TID 30 Days #90 tablet 09/01/23 10/07/23 Rx Pregabalin [Lyrica] 100 mg PO TID 30 Days #90 cap 09/01/23 10/07/23 Rx Ibuprofen [Motrin Ib] 400 mg PO DIRECTED PRN 10/07/23 10/07/23 History Unk Multi Vitamin 1 tab PO DAILY 10/07/23 10/07/23 History Allergies Allergy/AdvReac Type Severity Reaction Status Date / Time adhesive tape Allergy Rash/Hives Verified 10/07/23 14:41 cefaclor [From Ceclor] Allergy Rash/Hives Verified 10/07/23 14:41 dapagliflozin [From Farxiga] Allergy yeast Verified 10/07/23 14:41 infections Iodinated Contrast Media Allergy Rash/Hives,throat Verified 10/07/23 14:41 [Iodinated Contrast Media - swelling IV Dye] propoxyphene napsylate Allergy Rash/Hives Verified 10/07/23 14:41 [From Darvocet-N 100] Sulfa (Sulfonamide Allergy Dyspnea Verified 10/07/23 14:41 Antibiotics) sulfamethoxazole Allergy Rapid Verified 10/07/23 14:41 [From Bactrim] Heart Rate trimethoprim [From Bactrim] Allergy Rapid Verified 10/07/23 14:41 Heart Rate Surgical - Exam - General no distress, no pain - Eyes normal ocular movement, no pale - ENT normal nares, normal mucosa - Respiratory normal expansion, normal respiratory effort - Abdomen Abdomen: soft, non tender - Psychiatric oriented to time, oriented to person, oriented to place Assessment and Plan Assessment: -OR for Urolift
[2023-10-12] MEDS: LACTATED RINGERS 1,000 ML IV SCH ×2 (08:12→09:07)
[2023-10-12] MEDS ORDERED: ONDANSETRON 4 MG/2 ML VIAL ONE (08:14)
[2023-10-12 08:24] LABS: Glucose,Whole Blood 128 mg/dL (70-110)
[2023-10-12 08:33] VITALS: RESP 16
[2023-10-12] MEDS ORDERED: FAMOTIDINE 20 MG/2 ML VIAL IV ONE (08:40)
[2023-10-12] MEDS ORDERED: PROPOFOL 10 MG/ML 20 ML VIAL IV ONE (09:04)
[2023-10-12] MEDS ORDERED: LIDOCAINE 1% INJ 10MG/ML (20 ML MDV) ONE (09:04)
[2023-10-12] MEDS ORDERED: fentaNYL (PF) 50 MCG/ML 2 ML AMP ONE (09:04)
[2023-10-12] MEDS ORDERED: ALBUTEROL HFA INHALER INHALATION ONE (09:04)
[2023-10-12] MEDS ORDERED: SUCCINYLCHOLINE CHLORIDE 200 MG/10 ML VIAL IV ONE (09:04)
[2023-10-12] MEDS ORDERED: MIDAZOLAM 2 MG/2 ML VIAL ONE (09:04)
[2023-10-12] MEDS ORDERED: PHENYLEPHRINE-0.9% NACL SYG 1,000 MCG/10 ML SYRINGE ONE (09:04)
--- NOTE | 2023-10-12 10:08 | P.OP ---
Date of Procedure: 10/12/23 Preoperative Diagnosis: BPH Postoperative Diagnosis: same Procedure(s) Performed: Urolift X 7 Implants: Urolift clips Anesthesia: PIPOA Surgeon: Jovanny Willoughby Estimated Blood Loss (ml): 10 Pathology: none sent Condition: stable Disposition: PACU Indications for Procedure: This is a 53-year-old male with history of obstructive urinary symptoms despite medical therapy. He underwent a cystoscopy that showed evidence of an obstructive prostate. Option of a urolift versus TURP was discussed with him in detail. Agreed to proceed with Urolift aware of the risks which includes but not limited to bleeding, infection, persistent symptoms, urinary incontinence. Risk of anesthesia was also discussed. He understood all the risk and agreed to proceed Description of Procedure: Patient was brought to the operating room, general anesthesia was induced. He was prepped and draped in sterile fashion and placed in dorsal lithotomy position. Cystoscopy fitted with 20-[place] sheath was inserted per urethra, cystoscopy was performed which showed no abnormality within the bladder, of note patient had bilateral obstructive lateral lobes. Attention was then carried to the urolift implants. A total of 7 implants were placed, 4 on the right side, and 3 on the left side. Implants were placed distal to the bladder neck, but proximal to the Veru. Repeat cystoscopy showed no evidence of implant perforation into the bladder. Repeat cystoscopy also demonstrated an open anterior channel within the prostate. There was no evidence of bleeding, bladder was emptied at end of the case. Patient tolerated the procedure well was taken to PACU in stable condition,
[2023-10-12 10:17] VITALS: TEMP 97.4
[2023-10-12 11:06] VITALS: PULSE 100
[2023-10-12 11:31] VITALS: BP 140/88
== END 2023-10-12 11:46 | disposition home or self-care (01) ==
LOC: OR 07:39
PROVIDERS: ATTEND Urology
DX: N40.1 Benign prostatic hyperplasia with lower urinary tract symptoms (principal); J45.909 Unspecified asthma, uncomplicated; I25.10 Atherosclerotic heart disease of native coronary artery without angina pectoris; E11.9 Type 2 diabetes mellitus without complications; I11.0 Hypertensive heart disease with heart failure; I50.9 Heart failure, unspecified; K21.9 Gastro-esophageal reflux disease without esophagitis; G47.33 Obstructive sleep apnea (adult) (pediatric); Z79.84 Long term (current) use of oral hypoglycemic drugs; Z79.899 Other long term (current) drug therapy; Z79.51 Long term (current) use of inhaled steroids; Z79.82 Long term (current) use of aspirin; Z79.890 Hormone replacement therapy
CPT/HCPCS: L8699; J2250; J0330; J1100; J0690; J2405; J2001; J3010; J3490; J2704; J2371; C9740

== ENCOUNTER → 2023-10-19 | Outpatient (CLI) | payer MEDICARE, OTHER ==
--- NOTE | 2023-10-19 13:02 | P.PAINPG ---
PQRS Measure Charge Sheet Comment: A 53 yr old male with a history of severe and chronic LBP secondary to lumbar DDD and spondylosis with facet arthropathy without myelopathy presents today for medication refills. Pain level is provoked at 10/10 in intensity, constant, localized in the lumbar spine, predominantly axial, throbbing in character without shooting pain. Pain is provoked by bending, lifting in excess of 10 lbs. Pain is alleviated with medications, injections, ice, heat, PT x 8 wks in Nov 2022, physician guided home stretching regimen daily since Nov 2022, reclining and rest. Oswestry axial pain score of 26. Interventional pain procedures completed include LESIs, BL RFA L3-L5 (Aug 2022) Patient is currently on Tyl #3, Baclofen, Lyrica, Mobic Patient denies any side effects of the medication(s), denies excessive drowsiness or sleepiness, denies suicidal ideation and reports that the current pain medication is helping to control the pain and improve activities of daily living. Patient denies any motor or sensory deficits. Patient denies any fever or night sweats, denies any change in the bowel movements or urination. Physical Examination: -Constitutional: Cooperative. Not in acute distress . - Neurologic: Cranial nerve II to XII intact. No focal neurological deficits. - Psychatric: Alert & oriented x 3. Matching mood & appropriate affect. Judgment and insight intact. - Musculoskeletal: Cervical spine: Muscle bulk/ tone/ strength in the bilateral upper extremities normal Vertebral body tenderness to palpation over Spurling test positive Distraction test positive Facet loading test positive TTP Thoracic spine Muscle bulk / tone/ strength in the bilateral paraspinal muscles normal Vertebral body tender to palpation over Facet loading test positive TTP Lumbar spine: Motor bulk/ tone/ strength lower extremities , thigh and legs : 5/5 Deep tendon reflexes : Normal Knee Jerk. Normal Ankle Jerk . Vertebral body tenderness to palpation over L5 Lumbar Facet Loading Test positive Straight Leg Raise: positive at 30 degrees right side> left side Gaenslen's Test positive Sacral spine : Severe tenderness over the Sacroiliac joint: right side / left side Range of motion: Flexion of the lumbar spine <60 degrees Range of motion: Extension of the lumbar spine <20 degrees Gaenslen's Test positive right side / left side Abebe test: positive right side / left side Thigh Thrust Test positive right side / left side Sacral Thrust Test positive right side / left side Imaging: MRI noncontrast of the lumbar spine from November 2018 reviewed Assessment and plan: Chronic LBP secondary to lumbar DDD, spondylosis with facet arthropathy without myelopathy Chronic and current use of high-risk medication (Opioids). The patient was counseled about risk of opioid use, psychological risk associated with opioids and was orally counseled to not overuse , divert or sell medications. Pt is to store medication in a safe location. The patient is counseled against driving while using narcotic medications and also not to use alcohol or any illicit recreational drugs. Patient verbalized understanding that the lack of compliance will result in failure to renew narcotic prescription(s) as well as possible discharge from the clinic Diagnoses, prognosis and treatment options including but not limited to physical therapy, surgical interventions, interventional therapies and medication management including narcotics and adjuvant medication were discussed. All patient questions answered Lumbar x-ray M51.36 May need additional testing if indicated. MAPS reviewed and it was appropriate. UDS check at next visit. Prescription refill for Tyl #3 #60, Lyrica 100mg #90, Baclofen w 1 RF. I have spent less than 30 minutes on patient care today. Dr Cullen was available by phone for the evaluation of this patient. The time was used to review the medical records including relevant urine studies and Prescription history (MAPs), review of the available imaging, evaluation and examination of the patient, coordination of care with the medical staff and if applicable referring physicians, as well as creation of the medical record - Pain Location Bilateral Lower Back Non-Pharmacological Interventions: Heat, Ice, Inactivity, Physical Therapy, Position/Reposition, Sitting Pharmacological Interventions: PRN Medication, Scheduled Medication, Topical Medication PQRS Narrative: Smoking Status Current every day smoker Narcotic Agreement Date Signed 07/07/23 Hx Alcohol Use (MH) No Home Medications: Ambulatory Orders DULoxetine HCL [Cymbalta] 60 mg PO HS 12/31/14 Tamsulosin HCl [Flomax] 0.4 mg PO HS 12/31/14 Levothyroxine Sodium [Synthroid] 88 mcg PO DAILY 11/17/18 Testosterone Cypionate [Depo-Testosterone] 200 mg IM Q14D 11/17/18 metFORMIN HCL [Glucophage] 500 mg PO BID 11/17/18 Cariprazine HCl [Vraylar] 3 mg PO DAILY 11/21/19 Dicyclomine HCl 20 mg PO QID 01/06/21 Metoprolol Tartrate [Lopressor] 100 mg PO BID 02/04/21 Atorvastatin [Lipitor] 20 mg PO HS 03/07/21 hydrALAZINE HCL [Apresoline] 50 mg PO BID 30 Days #60 tab 03/10/21 allopurinoL [Zyloprim] 200 mg PO DAILY 06/02/21 Albuterol Inhaler [Ventolin Hfa Inhaler] 2 puff INHALATION RT-QID PRN 11/13/21 Ferrous Sulfate [Feosol] 2 tab PO DAILY 11/13/21 Empagliflozin [Jardiance] 25 mg PO DAILY 11/25/22 Pioglitazone [Actos] 15 mg PO DAILY 11/25/22 Ergocalciferol [Vitamin D2 (1250 Mcg = 65482 Iu)] 1,250 mcg PO Q30D 01/21/23 Pantoprazole [Protonix] 40 mg PO BID 01/21/23 hydroCHLOROthiazide [Hydrodiuril] 12.5 mg PO DAILY 01/21/23 Semaglutide [Ozempic] 2 mg SQ SA 06/16/23 Ibuprofen [Motrin Ib] 400 mg PO DIRECTED PRN 10/07/23 Unk Multi Vitamin 1 tab PO DAILY 10/07/23 Ciprofloxacin HCl [Cipro] 250 mg PO Q12HR 1 Days #2 tab 10/12/23 Acetaminophen-Codeine 300-30mg [Tylenol w/codeine #3] 1 tab PO Q8H PRN 30 Days #90 tablet 10/19/23 Baclofen [Lioresal] 10 mg PO TID 30 Days #90 tablet 10/19/23 Pregabalin [Lyrica] 100 mg PO TID 30 Days #90 cap 10/19/23 Controlled Substance Measures - Controlled Substance Measures Is patient prescribed a controlled substance at discharge?: Yes When asked, does pt state using other controlled substances?: Yes If prescribed controlled substance>3 days was MAPS reviewed?: Yes
[2023-10-19 13:14] VITALS: BP 136/91; PULSE 88; RESP 16; TEMP 8.1
== END ==
LOC: PNWHC3 12:29
PROVIDERS: ATTEND Specialist
DX: M51.36 Other intervertebral disc degeneration, lumbar region (principal); M47.816 Spondylosis without myelopathy or radiculopathy, lumbar region; E11.9 Type 2 diabetes mellitus without complications; F17.200 Nicotine dependence, unspecified, uncomplicated; G89.29 Other chronic pain; Z79.84 Long term (current) use of oral hypoglycemic drugs; Z79.891 Long term (current) use of opiate analgesic; Z79.85 Long-term (current) use of injectable non-insulin antidiabetic drugs; Z91.048 Other nonmedicinal substance allergy status; Z88.8 Allergy status to other drugs, medicaments and biological substances; Z91.041 Radiographic dye allergy status; Z88.2 Allergy status to sulfonamides; Z88.1 Allergy status to other antibiotic agents
CPT/HCPCS: 99211

== ENCOUNTER → 2023-10-19 | Outpatient (CLI) | payer MEDICARE ==
--- NOTE | 2023-10-19 18:30 | XR ---
EXAMINATION TYPE: XR lumbar spine 2 or 3V DATE OF EXAM: 10/19/2023 Comparison: None Clinical History: 53-year-old male M51.36 lumbar disorder Findings: Mild multilevel degenerative disc disease. Hypertrophic facet arthropathy lower lumbar spine. There i s a transitional lumbosacral segment denoted as a sacralized L5. Vertebral body heights are preserved . Impression: 1. Transitional lumbosacral segment denoted as a sacralized L5. 2. Hypertrophic facet arthropathy lower lumbar spine. 3. Mild degenerative disc disease throughout.
== END | disposition home or self-care (01) ==
LOC: RADXRMAIN 13:09
PROVIDERS: ATTEND Physician Assistant Medical
DX: M51.36 Other intervertebral disc degeneration, lumbar region (principal); M47.816 Spondylosis without myelopathy or radiculopathy, lumbar region
CPT/HCPCS: 72100

== ENCOUNTER → 2023-10-29 | Outpatient (CLI) | payer MEDICARE ==
--- NOTE | 2023-11-06 20:49 | MR ---
EXAMINATION TYPE: MR lumbar spine wo con DATE OF EXAM: 10/29/2023 COMPARISON: 12/07/2020 HISTORY: 53-year-old male Lower back pain, radiates down right leg. TECHNIQUE: Multiplanar, multisequence images of the lumbar spine were acquired without IV contrast. FINDINGS: Vertebral body heights are preserved. Alignment is maintained. Transitional lumbosacral segment denoted as a lumbarized S1. Prominent red marrow is present throughout. Some Modic type II fatty endplate change anteriorly such as that L1-L2, L3-L4, and L5-S1. Mild degenerative disc desiccation throughout. Bulging disc increased at L5-S1. Hypertrophic facet arthropathy and ligamentum flavum thickening also increased in the lower lumbar sp ine in the interval. Changes now contribute to a focal moderate to severe spinal canal stenosis at L5-S1 and mild spinal c anal narrowing at L4-L5. On the left, mild neuroforaminal narrowing at L5-S1. On the right, mild to moderate neuroforaminal narrowing at L5-S1 and mild at L4-L5. Conus medullaris is normal. IMPRESSION: 1. Transitional lumbosacral segment denoted as a lumbarized S1. 2. Mild to moderate degenerative disc disease along with hypertrophic facet arthropathy and ligamentu m flavum thickening progressed at L5-S1 now contributing to a moderate to severe spinal canal stenosi s at this level. 3. Mild neuroforaminal narrowing lower lumbar spine as outlined above, mild to moderate on the right at L5-S1. 4. Red marrow hyperplasia which can be seen in the setting of anemia, obesity, smoking, and chronic d isease.
== END | disposition home or self-care (01) ==
LOC: RADMRIMAIN 11:02
PROVIDERS: ATTEND Specialist
DX: M51.16 Intervertebral disc disorders with radiculopathy, lumbar region (principal); M47.26 Other spondylosis with radiculopathy, lumbar region; M24.29 Disorder of ligament, other specified site; M99.73 Connective tissue and disc stenosis of intervertebral foramina of lumbar region; D75.89 Other specified diseases of blood and blood-forming organs
CPT/HCPCS: 72148

== ENCOUNTER → 2023-11-08 | Outpatient (CLI) | payer MEDICARE ==
[2023-11-08 11:31] VITALS: BP 129/88; PULSE 89; RESP 15; TEMP 97.6
--- NOTE | 2023-11-08 14:00 | P.PAINPG ---
PQRS Measure Charge Sheet Comment: A 53 yr old male with a history of severe and chronic LBP secondary to lumbar DDD and spondylosis with facet arthropathy without myelopathy presents today for medication refills. Pain level is provoked at 10/10 in intensity, constant, localized in the lumbar spine, predominantly axial, throbbing in character without shooting pain. Pain is provoked by bending, lifting in excess of 10 lbs. Pain is alleviated with medications, injections, ice, heat, PT x 8 wks in Nov 2022, physician guided home stretching regimen daily since Nov 2022, reclining and rest. Oswestry axial pain score of 26. Interventional pain procedures completed include LESIs, BL RFA L3-L5 (Aug 2022) Patient is currently on Tyl #3, Baclofen, Lyrica, Mobic Patient denies any side effects of the medication(s), denies excessive drowsiness or sleepiness, denies suicidal ideation and reports that the current pain medication is helping to control the pain and improve activities of daily living. Patient denies any motor or sensory deficits. Patient denies any fever or night sweats, denies any change in the bowel movements or urination. Physical Examination: -Constitutional: Cooperative. Not in acute distress . - Neurologic: Cranial nerve II to XII intact. No focal neurological deficits. - Psychatric: Alert & oriented x 3. Matching mood & appropriate affect. Judgment and insight intact. - Musculoskeletal: Cervical spine: Muscle bulk/ tone/ strength in the bilateral upper extremities normal Vertebral body tenderness to palpation over Spurling test positive Distraction test positive Facet loading test positive TTP Thoracic spine Muscle bulk / tone/ strength in the bilateral paraspinal muscles normal Vertebral body tender to palpation over Facet loading test positive TTP Lumbar spine: Motor bulk/ tone/ strength lower extremities , thigh and legs : 5/5 Deep tendon reflexes : Normal Knee Jerk. Normal Ankle Jerk . Vertebral body tenderness to palpation over L4 Lumbar Facet Loading Test positive Straight Leg Raise: positive at 30 degrees right side> left side Gaenslen's Test positive Sacral spine : Severe tenderness over the Sacroiliac joint: right side / left side Range of motion: Flexion of the lumbar spine <60 degrees Range of motion: Extension of the lumbar spine <20 degrees Gaenslen's Test positive right side / left side Abebe test: positive right side / left side Thigh Thrust Test positive right side / left side Sacral Thrust Test positive right side / left side Imaging: MRI noncontrast of the lumbar spine from 10/29/23 reviewed Assessment and plan: Chronic LBP secondary to lumbar spinal stenosis, DDD, spondylosis with facet arthropathy without myelopathy Recommendation of ARTURO L4-L5 #1. May need a series of injections for optimal pain relief. Risks, benefits of procedure discussed and pt verbalized understanding. Protocol for discontinuation/ continuation of medications melva procedure discussed. Chronic and current use of high-risk medication (Opioids). The patient was counseled about risk of opioid use, psychological risk associated with opioids and was orally counseled to not overuse , divert or sell medications. Pt is to store medication in a safe location. The patient is counseled against driving while using narcotic medications and also not to use alcohol or any illicit recreational drugs. Patient verbalized understanding that the lack of compliance will result in failure to renew narcotic prescription(s) as well as possible discharge from the clinic Diagnoses, prognosis and treatment options including but not limited to physical therapy, surgical interventions, interventional therapies and medication management including narcotics and adjuvant medication were discussed. All patient questions answered. UDS collected 11/08/23. MAPS reviewed and it was appropriate. Prescription of Tyl #3 #60, Lyrica 100mg #90, Baclofen at pharmacy. Add Lidocaine 5% #30 NR. Use, side effects, adverse reactions and safe storage discussed. Pt acknowledged understanding. I have spent less than 30 minutes on patient care today. Dr Cullen was available by phone for the evaluation of this patient. The time was used to review the medical records including relevant urine studies and Prescription history (MAPs), review of the available imaging, evaluation and examination of the patient, coordination of care with the medical staff and if applicable referring physicians, as well as creation of the medical record PQRS Narrative: Smoking Status Current every day smoker Narcotic Agreement Date Signed 07/07/23 Hx Alcohol Use (MH) No Home Medications: Ambulatory Orders DULoxetine HCL [Cymbalta] 60 mg PO HS 12/31/14 Tamsulosin HCl [Flomax] 0.4 mg PO HS 12/31/14 Levothyroxine Sodium [Synthroid] 88 mcg PO DAILY 11/17/18 Testosterone Cypionate [Depo-Testosterone] 200 mg IM Q14D 11/17/18 metFORMIN HCL [Glucophage] 500 mg PO BID 11/17/18 Cariprazine HCl [Vraylar] 3 mg PO DAILY 11/21/19 Dicyclomine HCl 20 mg PO QID 01/06/21 Metoprolol Tartrate [Lopressor] 100 mg PO BID 02/04/21 Atorvastatin [Lipitor] 20 mg PO HS 03/07/21 hydrALAZINE HCL [Apresoline] 50 mg PO BID 30 Days #60 tab 03/10/21 allopurinoL [Zyloprim] 200 mg PO DAILY 06/02/21 Albuterol Inhaler [Ventolin Hfa Inhaler] 2 puff INHALATION RT-QID PRN 11/13/21 Ferrous Sulfate [Feosol] 2 tab PO DAILY 11/13/21 Empagliflozin [Jardiance] 25 mg PO DAILY 11/25/22 Pioglitazone [Actos] 15 mg PO DAILY 11/25/22 Ergocalciferol [Vitamin D2 (1250 Mcg = 56023 Iu)] 1,250 mcg PO Q30D 01/21/23 Pantoprazole [Protonix] 40 mg PO BID 01/21/23 hydroCHLOROthiazide [Hydrodiuril] 12.5 mg PO DAILY 01/21/23 Semaglutide [Ozempic] 2 mg SQ SA 06/16/23 Ibuprofen [Motrin Ib] 400 mg PO DIRECTED PRN 10/07/23 Unk Multi Vitamin 1 tab PO DAILY 10/07/23 Ciprofloxacin HCl [Cipro] 250 mg PO Q12HR 1 Days #2 tab 10/12/23 Acetaminophen-Codeine 300-30mg [Tylenol w/codeine #3] 1 tab PO TID PRN 30 Days #90 tablet 10/19/23 Baclofen [Lioresal] 10 mg PO TID 30 Days #90 tablet 10/19/23 Pregabalin [Lyrica] 100 mg PO TID 30 Days #90 cap 10/19/23 Lidocaine 5% Oint [Xylocaine 5% Oint] 1 applic TOPICAL BID PRN 30 Days #50 gm 11/08/23 Controlled Substance Measures - Controlled Substance Measures Is patient prescribed a controlled substance at discharge?: No
== END ==
LOC: PNWHC3 10:53
PROVIDERS: ATTEND Specialist
DX: M48.061 Spinal stenosis, lumbar region without neurogenic claudication (principal); M47.816 Spondylosis without myelopathy or radiculopathy, lumbar region; M89.29 Other disorders of bone development and growth, multiple sites; M51.36 Other intervertebral disc degeneration, lumbar region; F17.200 Nicotine dependence, unspecified, uncomplicated; Z91.048 Other nonmedicinal substance allergy status; Z88.2 Allergy status to sulfonamides; Z88.1 Allergy status to other antibiotic agents; Z88.3 Allergy status to other anti-infective agents
CPT/HCPCS: 99211

== ENCOUNTER 2023-11-16 07:29 | Day surgery (SDC) | payer MEDICARE ==
[2023-11-12 11:52] VITALS: BMI 34.1
[~2023-11-16 07:29] MED LIST changes: -DEXAMETHASONE SOD PHOSPHATE 4 MG/ML 1 ML VIAL IV ONE; -HYDROmorphone 0.5 MG/0.5 ML SYRINGE IVP PRN; +LACTATED RINGERS 1,000 ML IV SCH; -LIDOCAINE 1% (10MG/ML) FOR IV START INTRADERMA PRN; -ONDANSETRON 4 MG/2 ML VIAL IVP ONE; -droPERidol 5 MG/2 ML VIAL IVP ONE
[2023-11-16 07:59] LABS: Glucose,Whole Blood 144 mg/dL (70-110)
[2023-11-16 08:15] VITALS: TEMP 97
[2023-11-16] MEDS ORDERED: methylPREDNISolone ACETATE 40 MG/ML 1 ML VIAL ONE (08:24)
--- NOTE | 2023-11-16 08:32 | P.PCN ---
Date of Procedure: 11/16/23 Procedure(s) Performed: PREOPERATIVE DIAGNOSIS: 1- Lumbar Degenerative Disc Diseases 2-Lumbar spondylosis with Facet arthropathy without myelopathy. 3-lumbar spinal stenosis POSTOPERATIVE DIAGNOSIS: 1-lumbar degenerative disc disease. 2-lumbar spondylosis with facet arthropathy without myelopathy. 3-lumbar spinal stenosis. PROCEDURE 1. Lumbar epidural steroid injection under fluoroscopic guidance at the L4-5 level. (Fluoroscopy imaging was available in radiology department.. ANESTHESIA: Lidocaine 1% 3 and then only. EBL: Minimal PROCEDURE INDICATION: The patient with low back pain and radiculitis symptoms unresponsive to conservative treatment. Fluoroscopy was used to optimize visualization of the needle placement and to maximize safety. PROCEDURE DESCRIPTION / TECHNIQUE: The patient was seen and identified in the preoperative area. Risks, benefits, complications including but not limited to infections ,bleeding ,allergic reaction to the medications ,nerve damage and not complete pain releife , and alternatives were discussed with the patient. The patient agreed to proceed with the procedure and signed the consent, and vital signs were stable. Patient was taken to the OR and time out was completed. The patient was placed in the prone position on procedure table and a pillow was placed under the abdomen to reduce lumbar lordosis. The lumbosacral area was prepped and draped in the usual sterile fashion.ere closely monitored during the procedure. Vital signs was monitered during the entire procedure. Using anterior-posterior fluoroscopy, the L4-5 interlaminar space was identified and the skin over this site was marked and then infiltrated with 1% lidocaine subcutaneously. Subsequently, a 20-gauge Tuohy epidural needle was inserted and advanced toward the epidural space using the ``Loss of resistance technique and guided by AP and lateral fluoroscopy, after negative aspiration for blood and CSF and in the absence of paresthesias. Again after negative aspiration, a 5 ml mixture containing 40 mg of Depo-medrol ( Preservetive Free ), and 2 ml of preservative free Normal Saline, and 2 ml of preservative free lidocaine 1% solution was injected and a washout of epidurogram was seen. Needle was withdrawn intact, skin was cleansed, and bandages were applied. COMPLICATIONS: None DISPOSITION / PLANS: The patient was placed in a supine position and transferred to the recovery area in a stable condition for observation. There was no evidence of lower extremity motor or sensory deficit after the procedure. Patient was discharged from the recovery room after meeting discharge criteria. Home discharge instructions were given to the patient by the staff. The patient was reexamined prior to discharge. The patient will schedule a follow up in the clinic in 2-4 weeks. note= Isovue was not injected ,because patient had an ALLERGY to IVP dye.
[2023-11-16 08:41] VITALS: RESP 16
[2023-11-16 09:06] VITALS: BP 126/79; PULSE 89
--- NOTE | 2023-11-16 09:13 | FL ---
EXAMINATION TYPE: FL guided pain mgmt statistic Intraoperative/procedural fluoroscopic services were provided. Total fluoroscopy time is 2.5 seconds with a total of 1 submitted images to PACS. Please se e the operative/procedural note for further details. DAP: [id number] [id number]
== END 2023-11-16 08:54 | disposition home or self-care (01) ==
LOC: ORPAIN 07:29
PROVIDERS: ATTEND Specialist
DX: M51.16 Intervertebral disc disorders with radiculopathy, lumbar region (principal); M47.26 Other spondylosis with radiculopathy, lumbar region; M48.061 Spinal stenosis, lumbar region without neurogenic claudication; E11.9 Type 2 diabetes mellitus without complications; Z79.1 Long term (current) use of non-steroidal anti-inflammatories (NSAID); Z91.041 Radiographic dye allergy status; Z91.048 Other nonmedicinal substance allergy status; Z88.2 Allergy status to sulfonamides; Z88.1 Allergy status to other antibiotic agents; Z88.5 Allergy status to narcotic agent
CPT/HCPCS: 62323; J1030

== ENCOUNTER 2023-11-22 18:15 | Emergency (ER) | payer MEDICARE, OTHER ==
[2023-11-22 19:05] VITALS: TEMP 98.2
--- NOTE | 2023-11-22 20:52 | ED ---
General Adult HPI - General Chief complaint: Recheck/Abnormal Lab/Rx Stated complaint: Weakness in legs,Pain in neck Time Seen by Provider: 11/22/23 20:51 Source: patient Mode of arrival: wheelchair Limitations: no limitations - History of Present Illness Initial comments: 53-year-old male with a past medical history significant for spinal stenosis follows with Dr. Cullen for pain management until to the ED with a chief complaint of neck pain. Patient states last week received an epidural injection secondary to his chronic back pain. Since then, reports increasing weakness of bilateral lower legs. Also notes some numbness of his inner thighs now as well. Also notes that he is now started having pain of his neck. No fever or chills. No IV drug use. Night saddle anesthesia or incontinence. Last injection 11/16/23. - Related Data Home Medications Medication Instructions Recorded Confirmed DULoxetine HCL [Cymbalta] 60 mg PO HS 12/31/14 11/16/23 Levothyroxine Sodium [Synthroid] 88 mcg PO DAILY 11/17/18 11/16/23 Testosterone Cypionate 200 mg IM Q14D 11/17/18 11/16/23 [Depo-Testosterone] metFORMIN HCL [Glucophage] 500 mg PO BID 11/17/18 11/16/23 Cariprazine HCl [Vraylar] 3 mg PO DAILY 11/21/19 11/16/23 Dicyclomine HCl 20 mg PO QID 01/06/21 11/16/23 Metoprolol Tartrate [Lopressor] 50 mg PO BID 02/04/21 11/16/23 Atorvastatin [Lipitor] 20 mg PO HS 03/07/21 11/16/23 allopurinoL [Zyloprim] 200 mg PO DAILY 06/02/21 11/16/23 Albuterol Inhaler [Ventolin Hfa 2 puff INHALATION QID PRN 11/13/21 11/16/23 Inhaler] Ferrous Sulfate [Feosol] 2 tab PO DAILY 11/13/21 11/16/23 Empagliflozin [Jardiance] 10 mg PO DAILY 11/25/22 11/16/23 Pioglitazone [Actos] 15 mg PO DAILY 11/25/22 11/16/23 Ergocalciferol [Vitamin D2 (1250 1,250 mcg PO Q30D 01/21/23 11/16/23 Mcg = 39835 Iu)] Pantoprazole [Protonix] 40 mg PO BID 01/21/23 11/16/23 hydroCHLOROthiazide [Hydrodiuril] 12.5 mg PO DAILY 01/21/23 11/16/23 Semaglutide [Ozempic] 2 mg SQ SA 06/16/23 11/16/23 Insulin Degludec [Tresiba] 20 units SQ QAM 11/12/23 11/16/23 Multivitamins, Thera [Multivitamin 1 tab PO DAILY 11/12/23 11/16/23 (formulary)] Previous Rx's Medication Instructions Recorded hydrALAZINE HCL [Apresoline] 50 mg PO BID 30 Days #60 tab 03/10/21 Acetaminophen-Codeine 300-30mg 1 tab PO TID PRN 30 Days #90 tablet 10/19/23 [Tylenol w/codeine #3] Baclofen [Lioresal] 10 mg PO TID 30 Days #90 tablet 10/19/23 Pregabalin [Lyrica] 100 mg PO TID 30 Days #90 cap 10/19/23 Lidocaine 5% Oint [Xylocaine 5% 1 applic TOPICAL BID PRN 30 Days 11/08/23 Oint] #50 gm Allergies Allergy/AdvReac Type Severity Reaction Status Date / Time adhesive tape Allergy Rash/Hives Verified 11/22/23 18:57 cefaclor [From Ceclor] Allergy Rash/Hives Verified 11/22/23 18:57 dapagliflozin [From Farxiga] Allergy yeast Verified 11/22/23 18:57 infections Iodinated Contrast Media Allergy Rash/Hives,throat Verified 11/22/23 18:57 [Iodinated Contrast Media - swelling IV Dye] propoxyphene napsylate Allergy Rash/Hives Verified 11/22/23 18:57 [From Darvocet-N 100] Sulfa (Sulfonamide Allergy Dyspnea Verified 11/22/23 18:57 Antibiotics) sulfamethoxazole Allergy Rapid Verified 11/22/23 18:57 [From Bactrim] Heart Rate trimethoprim [From Bactrim] Allergy Rapid Verified 11/22/23 18:57 Heart Rate Review of Systems ROS Statement: Those systems with pertinent positive or pertinent negative responses have been documented in the HPI. ROS Other: All systems not noted in ROS Statement are negative. Past Medical History Past Medical History: Asthma, Coronary Artery Disease (CAD), Cancer, Chest Pain / Angina, Heart Failure, CVA/TIA, Diabetes Mellitus, Eye Disorder, GERD/Reflux, Hyperlipidemia, Hypertension, Liver Disease, Musculoskeletal Disorder, Prostate Disorder, Renal Disease, Skin Disorder, Sleep Apnea/CPAP/BIPAP, Thyroid Disorder, Vascular Disorder Additional Past Medical History / Comment(s): TMJ, sinus problems, eczema, kidney stones, diverticulitis, back pain w/ DDD, physical limitations, numbness and tingling in bilateral hands, hx skin cancer, hyperflexia, slight cataracts, hx CVA 11/2018-no residual effects, hx of elevated WBC's-sees Dr. Luna-states just normal for him, PVD, Kidney Disease Stage 3, fatty liver, uses CPAP. History of Any Multi-Drug Resistant Organisms: None Reported Past Surgical History: Adenoidectomy, Hernia Repair, Orthopedic Surgery, Tonsillectomy Additional Past Surgical History / Comment(s): Urolift, wart on uvula removed, pain clinic procedures, left knee arthroscopy X2, varicose vein procedure. Past Anesthesia/Blood Transfusion Reactions: No Reported Reaction Additional Past Anesthesia/Blood Transfusion Reaction / Comment(s): Hard to wake up. Past Psychological History: Anxiety, Depression Smoking Status: Former smoker Past Alcohol Use History: None Reported Past Drug Use History: None Reported - Past Family History Mother Family Medical History: Cancer, Deep Vein Thrombosis (DVT) Father Family Medical History: Cancer General Exam - General Exam Comments Initial Comments: Visual Physical Exam Vital signs reviewed General: Well-appearing, nontoxic, no acute distress. Head: Normocephalic, atraumatic Eyes: PERRLA, EOMI ENT: Airway patent Chest: Nonlabored breathing Skin: No visual rash, normal skin tone Neuro: Alert and oriented 3 Musculoskeletal: No gross abnormalities Limitations: no limitations General appearance: alert, in no apparent distress Neck exam: Present: normal inspection Respiratory exam: Present: normal lung sounds bilaterally Cardiovascular Exam: Present: regular rate, normal rhythm GI/Abdominal exam: Present: soft Extremities exam: Present: other (Strength and sensation equal and intact of bilateral upper and lower extremities.) Neurological exam: Present: alert, oriented X3 Skin exam: Present: warm, dry Course Vital Signs 11/22/23 18:55 Temperature 98.2 F Pulse Rate 84 Respiratory 20 Rate Blood Pressure 122/72 O2 Sat by Pulse 99 Oximetry Medical Decision Making - Medical Decision Making Was pt. sent in by a medical professional or institution (ALECIA Loja, SECURITY SYSTEM SALES CONSULTANT, urgent care, hospital, or custodial...) When possible be specific @ -No Did you speak to anyone other than the patient for history (EMS, parent, family, police, friend...)? What history was obtained from this source @ -No Did you review nursing and triage notes (agree or disagree)? Why? @ -I reviewed and agree with nursing and triage notes Were old charts reviewed (outside hosp., previous admission, EMS record, old EKG, old radiological studies, urgent care reports/EKG's, custodial records)? Report findings @ -No old charts were reviewed Differential Diagnosis (chest pain, altered mental status, abdominal pain women, abdominal pain men, vaginal bleeding, weakness, fever, dyspnea, syncope, headach e, dizziness, GI bleed, back pain, seizure, CVA, palpatations, mental health, musculoskeletal)? @ -Differential Back Pain: Strain, zoster, cauda equina syndrome, epidural abscess, vertebral osteomyelitis, discitis, fracture, subluxation, disc herniation, DJD, spinal stenosis, dissection, AAA, pancreatitis, peptic ulcer disease, pyelonephritis, kidney stone, this is not meant to be an all-inclusive list. EKG interpreted by me (3pts min.). @ -None X-rays interpreted by me (1pt min.). @ -None done CT interpreted by me (1pt min.). @ -CT interpreted as showing no evidence of acute findings. U/S interpreted by me (1pt. min.). @ -None done What testing was considered but not performed or refused? (CT, X-rays, U/S, labs)? Why? @ -None What meds were considered but not given or refused? Why? @ -None Did you discuss the management of the patient with other professionals (professionals i.e. ALECIA Loja, SECURITY SYSTEM SALES CONSULTANT, lab, RT, psych nurse, social media community manager, wine and spirits clerk, teacher, alumni relations officer, case monitor)? Give summary @ -Case discussed with Dr. Arvizu of orthopedics who advised patient is stable for discharge and outpatient follow-up. Was smoking cessation discussed for >3mins.? @ -No Was critical care preformed (if so, how long)? @ -No Were there social determinants of health that impacted care today? How? (Homelessness, low income, unemployed, alcoholism, drug addiction, transportation, low edu. Level, literacy, decrease access to med. care, intermediate, rehab)? @ -No Was there de-escalation of care discussed even if they declined (Discuss DNR or withdrawal of care, Hospice)? DNR status @ -No What co-morbidities impacted this encounter? (DM, HTN, Smoking, COPD, CAD, Cancer, CVA, ARF, Chemo, Hep., AIDS, mental health diagnosis, sleep apnea, morbid obesity)? @ -None Was patient admitted / discharged? Hospital course, mention meds given and route, prescriptions, significant lab abnormalities, going to OR and other pertinent info. @ -Discharge 53-year-old male with a past medical history significant for chronic back pain presenting to the ED with recent worsening of back pain with new paresthesias as well. Patient does no history of recent epidural injection. Therefore CT cervical, thoracic, lumbar spine with contrast performed showing no evidence of acute finding. Patient discharged home in stable condition. Patient notes that the he has follow-up with [facility] and advised following up with him as scheduled. Discussed strict return precautions with patient who verbalizes agreement. Undiagnosed new problem with uncertain prognosis? @ -No Drug Therapy requiring intensive monitoring for toxicity (Heparin, Nitro, Insulin, Cardizem)? @ -No Were any procedures done? @ -No Diagnosis/symptom? @ -Back pain Acute, or Chronic, or Acute on Chronic? @ -Acute on chronic Uncomplicated (without systemic symptoms) or Complicated (systemic symptoms)? @ -Uncomplicated Side effects of treatment? @ -No Exacerbation, Progression, or Severe Exacerbation? @ -No Poses a threat to life or bodily function? How? (Chest pain, [place], HI, pneumonia, PE, COPD, DKA, ARF, appy, cholecystitis, CVA, Diverticulitis, Homicidal, Suicidal, threat to staff... and all critical care pts) @ -No - Lab Data Result diagrams: 11/22/23 21:16 11/22/23 21:16 Lab Results 11/22/23 11/22/23 11/22/23 Range/Units 21:16 21:16 21:16 WBC 12.5 H (3.8-10.6) k/uL RBC 5.06 (4.30-5.90) m/uL Hgb 16.4 (13.0-17.5) gm/dL Hct 49.1 (39.0-53.0) % MCV 97.0 (80.0-100.0) fL MCH 32.5 (25.0-35.0) pg MCHC 33.5 (31.0-37.0) g/dL RDW 15.1 (11.5-15.5) % Plt Count 311 (150-450) k/uL MPV 9.3 Neutrophils % 75 % Lymphocytes % 14 % Monocytes % 8 % Eosinophils % 2 % Basophils % 1 % Neutrophils # 9.3 H (1.3-7.7) k/uL Lymphocytes # 1.8 (1.0-4.8) k/uL Monocytes # 0.9 (0-1.0) k/uL Eosinophils # 0.2 (0-0.7) k/uL Basophils # 0.1 (0-0.2) k/uL Sodium 138 (137-145) mmol/L Potassium 3.5 (3.5-5.1) mmol/L Chloride 96 L (98-107) mmol/L Carbon Dioxide 33 H (22-30) mmol/L Anion Gap 9 mmol/L BUN 12 (9-20) mg/dL Creatinine 1.07 (0.66-1.25) mg/dL Est GFR (CKD-EPI)AfAm >90 (>60 ml/min/1.73 sqM) Est GFR (CKD-EPI)NonAf 80 (>60 ml/min/1.73 sqM) Glucose 121 H (74-99) mg/dL Plasma Lactic Acid Rey 1.3 (0.7-2.0) mmol/L Calcium 9.6 (8.4-10.2) mg/dL Total Bilirubin 0.5 (0.2-1.3) mg/dL AST 39 (17-59) U/L ALT 50 H (4-49) U/L Alkaline Phosphatase 120 (38-126) U/L C-Reactive Protein 6.4 H (<1.0) mg/dL Total Protein 7.0 (6.3-8.2) g/dL Albumin 4.3 (3.5-5.0) g/dL Urine Color Urine Appearance (Clear) Urine pH (5.0-8.0) Ur Specific [place] (1.001-1.035) Urine Protein (Negative) Urine Glucose (UA) (Negative) Urine Ketones (Negative) Urine Blood (Negative) Urine Nitrite (Negative) Urine Bilirubin (Negative) Urine Urobilinogen (<2.0) mg/dL Ur Leukocyte Esterase (Negative) 11/23/23 Range/Units 00:52 WBC (3.8-10.6) k/uL RBC (4.30-5.90) m/uL Hgb (13.0-17.5) gm/dL Hct (39.0-53.0) % MCV (80.0-100.0) fL MCH (25.0-35.0) pg MCHC (31.0-37.0) g/dL RDW (11.5-15.5) % Plt Count (150-450) k/uL MPV Neutrophils % % Lymphocytes % % Monocytes % % Eosinophils % % Basophils % % Neutrophils # (1.3-7.7) k/uL Lymphocytes # (1.0-4.8) k/uL Monocytes # (0-1.0) k/uL Eosinophils # (0-0.7) k/uL Basophils # (0-0.2) k/uL Sodium (137-145) mmol/L Potassium (3.5-5.1) mmol/L Chloride (98-107) mmol/L Carbon Dioxide (22-30) mmol/L Anion Gap mmol/L BUN (9-20) mg/dL Creatinine (0.66-1.25) mg/dL Est GFR (CKD-EPI)AfAm (>60 ml/min/1.73 sqM) Est GFR (CKD-EPI)NonAf (>60 ml/min/1.73 sqM) Glucose (74-99) mg/dL Plasma Lactic Acid Rey (0.7-2.0) mmol/L Calcium (8.4-10.2) mg/dL Total Bilirubin (0.2-1.3) mg/dL AST (17-59) U/L ALT (4-49) U/L Alkaline Phosphatase (38-126) U/L C-Reactive Protein (<1.0) mg/dL Total Protein (6.3-8.2) g/dL Albumin (3.5-5.0) g/dL Urine Color Colorless Urine Appearance Clear (Clear) Urine pH 5.5 (5.0-8.0) Ur Specific [place] 1.029 (1.001-1.035) Urine Protein Negative (Negative) Urine Glucose (UA) 4+ H (Negative) Urine Ketones Negative (Negative) Urine Blood Negative (Negative) Urine Nitrite Negative (Negative) Urine Bilirubin Negative (Negative) Urine Urobilinogen <2.0 (<2.0) mg/dL Ur Leukocyte Esterase Negative (Negative) Disposition Clinical Impression: Back pain Disposition: HOME SELF-CARE Condition: Good Additional Instructions: Please return to the Emergency Department if symptoms worsen or any other concerns. Please follow up with orthopedics as scheduled. Is patient prescribed a controlled substance at d/c from ED?: No Referrals: Tristin Phillips DO [Primary Care Provider] - 1-2 days Matt Shelton DO [Doctor of Osteopathic Medicine] - 1-2 days Time of Disposition: 01:13
[2023-11-22] MEDS ORDERED: FAMOTIDINE 20 MG/2 ML VIAL IV STA (20:55)
[2023-11-22] MEDS ORDERED: methylPREDNISolone SOD SUCCI 40 MG/ML 1 ML VIAL IV STA (20:55)
[2023-11-22] MEDS ORDERED: diphenhydrAMINE 50 MG/ML 1 ML VIAL IVP STA (20:55)
[2023-11-22 21:38] LABS: ALT 50 U/L (4-49); AST 39 U/L (17-59); African American GFR (CKD) >90 (>60 ml/min/1.73 sqM); Albumin 4.3 g/dL (3.5-5.0); Alkaline Phosphatase 120 U/L (38-126); Anion Gap 9 mmol/L; Blood Urea Nitrogen 12 mg/dL (9-20); C Reactive Protein 6.4 mg/dL (<1.0); Calcium 9.6 mg/dL (8.4-10.2); Carbon Dioxide 33 mmol/L (22-30); Chloride 96 mmol/L (98-107); Glucose 121 mg/dL (74-99); Non-African American GFR(CKD) 80 (>60 ml/min/1.73 sqM); Potassium 3.5 mmol/L (3.5-5.1); Sodium 138 mmol/L (137-145); Total Bilirubin 0.5 mg/dL (0.2-1.3)
[2023-11-22 22:40] LABS: Basophils # (A) 0.1 k/uL (0-0.2); Basophils % (A) 1 %; Eosinophils # (A) 0.2 k/uL (0-0.7); Eosinophils % (A) 2 %; HCT 49.1 % (39.0-53.0); HGB 16.4 gm/dL (13.0-17.5); Lymphocytes # (A) 1.8 k/uL (1.0-4.8); Lymphocytes % (A) 14 %; MCH 32.5 pg (25.0-35.0); MCHC 33.5 g/dL (31.0-37.0); Mean Platelet Volume 9.3; Monocytes # (A) 0.9 k/uL (0-1.0); Monocytes % (A) 8 %; Neutrophils # (A) 9.3 k/uL (1.3-7.7); Neutrophils % (A) 75 %; Platelet Count 311 k/uL (150-450); RBC 5.06 m/uL (4.30-5.90); RDW 15.1 % (11.5-15.5); WBC 12.5 k/uL (3.8-10.6)
--- NOTE | 2023-11-23 00:23 | CT ---
EXAM: CT Cervical Spine With Intravenous Contrast CLINICAL HISTORY: ITS.REASON CT Reason: neck pain hx recent epidural injection TECHNIQUE: Axial computed tomography images of the cervical spine with intravenous contrast. CTDI is 12.3 mGy and DLP is 787.1 mGy-cm. This CT exam was performed using one or more of the following dose reduction techniques: automated exposure control, adjustment of the mA and/or kV according to patient size, and/or use of iterative reconstruction technique. COMPARISON: No relevant prior studies available. FINDINGS: Vertebrae: No acute fracture. Prior ACDF C6-7 Discs/spinal canal/neural foramina: degenerative changes. Soft tissues: No prevertebral swelling. IMPRESSION: No acute fracture or subluxation. No fluid collection seen. EXAM: CT Thoracic Spine With Intravenous Contrast CLINICAL HISTORY: ITS.REASON CT Reason: neck pain hx recent epidural injection TECHNIQUE: Axial computed tomography images of the thoracic spine with intravenous contrast. CTDI is 12.3 mGy and DLP is 787.1 mGy-cm. This CT exam was performed using one or more of the following dose reduction techniques: automated exposure control, adjustment of the mA and/or kV according to patient size, and/or use of iterative reconstruction technique. COMPARISON: No relevant prior studies available. FINDINGS: Vertebrae: Age indeterminate mild superior plate wedging T2 and T3. No subluxation. Discs/spinal canal/neural foramina: No spinal canal stenosis. Soft tissues: Unremarkable. IMPRESSION: Age indeterminate mild superior plate wedging T2 and T3. No fluid collection seen. EXAM: CT Lumbar Spine With Intravenous Contrast CLINICAL HISTORY: ITS.REASON CT Reason: neck pain hx recent epidural injection TECHNIQUE: Axial computed tomography images of the lumbar spine with intravenous contrast. CTDI is 12.3 mGy and DLP is 787.1 mGy-cm. This CT exam was performed using one or more of the following dose reduction techniques: automated exposure control, adjustment of the mA and/or kV according to patient size, and/or use of iterative reconstruction technique. COMPARISON: No relevant prior studies available. FINDINGS: Vertebrae: No acute fracture. No subluxation. Discs/spinal canal/neural foramina: No significant spinal canal stenosis. Moderate bilateral L5-S1 foraminal stenosis. Soft tissues: Fatty liver. No fluid collection seen. IMPRESSION: No acute fracture. No fluid collection seen.
[2023-11-23 01:04] LABS: Appearance,Urine Clear (Clear); Bilirubin,Urine Negative (Negative); Blood,Urine Negative (Negative); Color,Urine Colorless; Glucose,Urine (UA) 4+ (Negative); Ketones,Urine Negative (Negative); Leukocyte Esterase,Urine Negative (Negative); Nitrite,Urine Negative (Negative); PH, Urine 5.5 (5.0-8.0); Protein,Urine Negative (Negative); Specific Gravity,Urine 1.029 (1.001-1.035); Urobilinogen,Urine <2.0 mg/dL (<2.0)
[2023-11-23 02:08] VITALS: BP 136/74; PULSE 82; RESP 16
[2023-11-23 04:49] LABS: Erythrocyte Sedimentation Rate 47 mm/Hr (0-20)
== END 2023-11-23 02:00 | disposition home or self-care (01) ==
LOC: EC 18:15
DX: G89.29 Other chronic pain (principal); M54.9 Dorsalgia, unspecified; I13.0 Hypertensive heart and chronic kidney disease with heart failure and stage 1 through stage 4 chronic kidney disease, or unspecified chronic kidney disease; E11.22 Type 2 diabetes mellitus with diabetic chronic kidney disease; E11.36 Type 2 diabetes mellitus with diabetic cataract; E11.51 Type 2 diabetes mellitus with diabetic peripheral angiopathy without gangrene; N18.30 Chronic kidney disease, stage 3 unspecified; J45.909 Unspecified asthma, uncomplicated; I25.10 Atherosclerotic heart disease of native coronary artery without angina pectoris; K21.9 Gastro-esophageal reflux disease without esophagitis; E78.5 Hyperlipidemia, unspecified; E07.9 Disorder of thyroid, unspecified; F41.9 Anxiety disorder, unspecified; F32.A Depression, unspecified; Z79.84 Long term (current) use of oral hypoglycemic drugs; Z79.4 Long term (current) use of insulin; Z79.890 Hormone replacement therapy; Z79.899 Other long term (current) drug therapy; Z88.1 Allergy status to other antibiotic agents; Z88.2 Allergy status to sulfonamides; Z91.09 Other allergy status, other than to drugs and biological substances; Z88.8 Allergy status to other drugs, medicaments and biological substances; Z91.041 Radiographic dye allergy status; Z87.891 Personal history of nicotine dependence; Z86.73 Personal history of transient ischemic attack (TIA), and cerebral infarction without residual deficits
CPT/HCPCS: 80053; 85652; 83605; 85025; 86140; 72129; 72126; 72132; 99285; 96374; 96375 ×2; J1200; J2920; J3490; Q9967; 36415; 81003

== ENCOUNTER → 2023-12-15 | Outpatient (CLI) | payer MEDICARE ==
[2023-12-16 07:12] LABS: Serum Amphetamine Negative; Serum Barbiturates Negative; Serum Benzodiazepine Negative; Serum Cocaine Negative; Serum Methadone Negative; Serum Opiates Positive; Serum Phencyclidine Negative; Serum Propoxyphene Negative; Serum THC (Cannabis) Negative
== END | disposition home or self-care (01) ==
LOC: LABWHC1 13:12
PROVIDERS: ATTEND Physician Assistant Medical
DX: Z02.83 Encounter for blood-alcohol and blood-drug test (principal)
CPT/HCPCS: 36415; 80307

== ENCOUNTER → 2023-12-15 | Outpatient (CLI) | payer MEDICARE ==
[2023-12-15 13:16] VITALS: BP 147/82; PULSE 88; RESP 15; TEMP 98.4
--- NOTE | 2023-12-15 14:35 | P.PAINPG ---
PQRS Measure Charge Sheet Comment: A 53 yr old male with a history of severe and chronic LBP secondary to lumbar DDD and spondylosis with facet arthropathy without myelopathy presents today for medication refills and evaluation s/p ARTURO L4-L5 #1. Pt states he experienced 0 % pain relief x 4 wks s/p procedure. Pain level is provoked at 10/10 in intensity, constant, localized in the lumbar spine, predominantly axial, throbbing in character without shooting pain. Pain is provoked by bending, lifting in excess of 10 lbs. Pain is alleviated with medications, injections, ice, heat, PT x 8 wks in Nov 2022, physician guided home stretching regimen daily since Nov 2022, reclining and rest. Oswestry axial pain score of 26. Interventional pain procedures completed include JOSEPHINE Fink RFA L3-L5 (Aug 2022) Patient is currently on Tyl #3, Baclofen, Lyrica, Mobic Patient denies any side effects of the medication(s), denies excessive drowsiness or sleepiness, denies suicidal ideation and reports that the current pain medication is helping to control the pain and improve activities of daily living. Patient denies any motor or sensory deficits. Patient denies any fever or night sweats, denies any change in the bowel movements or urination. Physical Examination: -Constitutional: Cooperative. Not in acute distress . - Neurologic: Cranial nerve II to XII intact. No focal neurological deficits. - Psychatric: Alert & oriented x 3. Matching mood & appropriate affect. Judgment and insight intact. - Musculoskeletal: Cervical spine: Muscle bulk/ tone/ strength in the bilateral upper extremities normal Vertebral body tenderness to palpation over Sp[place]ling test positive Distraction test positive Facet loading test positive TTP Thoracic spine Muscle bulk / tone/ strength in the bilateral paraspinal muscles normal Vertebral body tender to palpation over Facet loading test positive TTP Lumbar spine: Motor bulk/ tone/ strength lower extremities , thigh and legs : 5/5 Deep tendon reflexes : Normal Knee Jerk. Normal Ankle Jerk . Vertebral body tenderness to palpation over L4 Lumbar Facet Loading Test positive Straight Leg Raise: positive at 30 degrees right side> left side Gaenslen's Test positive Sacral spine : Severe tenderness over the Sacroiliac joint: right side / left side Range of motion: Flexion of the lumbar spine <60 degrees Range of motion: Extension of the lumbar spine <20 degrees Gaenslen's Test positive right side / left side Abebe test: positive right side / left side Thigh Thrust Test positive right side / left side Sacral Thrust Test positive right side / left side Imaging: MRI noncontrast of the lumbar spine from 10/29/23 reviewed Assessment and plan: Chronic LBP secondary to lumbar spinal stenosis, DDD, spondylosis with facet arthropathy without myelopathy Chronic and current use of high-risk medication (Opioids). The patient was counseled about risk of opioid use, psychological risk associated with opioids and was orally counseled to not overuse , divert or sell medications. Pt is to store medication in a safe location. The patient is counseled against driving while using narcotic medications and also not to use alcohol or any illicit recreational drugs. Patient verbalized understanding that the lack of compliance will result in failure to renew narcotic prescription(s) as well as possible discharge from the clinic Diagnoses, prognosis and treatment options including but not limited to physical therapy, surgical interventions, interventional therapies and medication management including narcotics and adjuvant medication were discussed. All patient questions answered. UDS fr 11/08/23 not available for unknown reasons. Today, pt states he can not provide urine sample. Script for blood tox screen provided Z02.83. MAPS reviewed and it was appropriate. Prescription of Tyl #3 #60, Lyrica 100mg #90, Baclofen at pharmacy. Use, side effects, adverse reactions and safe storage discussed. Pt acknowledged understanding. I have spent less than 30 minutes on patient care today. Dr Cullen was availab le by phone for the evaluation of this patient. The time was used to review the medical records including relevant urine studies and Prescription history (MAPs), review of the available imaging, evaluation and examination of the patient, coordination of care with the medical staff and if applicable referring physicians, as well as creation of the medical record - Pain Location Bilateral Lower Back Non-Pharmacological Interventions: Heat, Ice, Inactivity, Position/Reposition Pharmacological Interventions: Epidural, Scheduled Medication PQRS Narrative: Smoking Status Current every day smoker Narcotic Agreement Date Signed 07/07/23 Hx Alcohol Use (MH) No Home Medications: Ambulatory Orders DULoxetine HCL [Cymbalta] 60 mg PO HS 12/31/14 Levothyroxine Sodium [Synthroid] 88 mcg PO DAILY 11/17/18 Testosterone Cypionate [Depo-Testosterone] 200 mg IM Q14D 11/17/18 metFORMIN HCL [Glucophage] 500 mg PO BID 11/17/18 Cariprazine HCl [Vraylar] 3 mg PO DAILY 11/21/19 Dicyclomine HCl 20 mg PO QID 01/06/21 Metoprolol Tartrate [Lopressor] 50 mg PO BID 02/04/21 Atorvastatin [Lipitor] 20 mg PO HS 03/07/21 hydrALAZINE HCL [Apresoline] 50 mg PO BID 30 Days #60 tab 03/10/21 allopurinoL [Zyloprim] 200 mg PO DAILY 06/02/21 Albuterol Inhaler [Ventolin Hfa Inhaler] 2 puff INHALATION QID PRN 11/13/21 Ferrous Sulfate [Feosol] 2 tab PO DAILY 11/13/21 Empagliflozin [Jardiance] 10 mg PO DAILY 11/25/22 Pioglitazone [Actos] 15 mg PO DAILY 11/25/22 Ergocalciferol [Vitamin D2 (1250 Mcg = 57760 Iu)] 1,250 mcg PO Q30D 01/21/23 Pantoprazole [Protonix] 40 mg PO BID 01/21/23 hydroCHLOROthiazide [Hydrodiuril] 12.5 mg PO DAILY 01/21/23 Semaglutide [Ozempic] 2 mg SQ SA 06/16/23 Lidocaine 5% Oint [Xylocaine 5% Oint] 1 applic TOPICAL BID PRN 30 Days #50 gm 11/08/23 Insulin Degludec [Tresiba] 20 units SQ QAM 11/12/23 Multivitamins, Thera [Multivitamin (formulary)] 1 tab PO DAILY 11/12/23 Acetaminophen-Codeine 300-30mg [Tylenol w/codeine #3] 1 tab PO TID PRN 30 Days #90 tablet 12/15/23 Baclofen [Lioresal] 10 mg PO TID 30 Days #90 tablet 12/15/23 Pregabalin [Lyrica] 100 mg PO TID 30 Days #90 cap 12/15/23 Controlled Substance Measures - Controlled Substance Measures Is patient prescribed a controlled substance at discharge?: Yes When asked, does pt state using other controlled substances?: Yes If prescribed controlled substance>3 days was MAPS reviewed?: Yes
== END ==
LOC: PNWHC3 12:37
PROVIDERS: ATTEND Specialist
DX: M96.1 Postlaminectomy syndrome, not elsewhere classified (principal); M47.816 Spondylosis without myelopathy or radiculopathy, lumbar region; M50.30 Other cervical disc degeneration, unspecified cervical region; M51.36 Other intervertebral disc degeneration, lumbar region; M48.061 Spinal stenosis, lumbar region without neurogenic claudication; G89.29 Other chronic pain; F17.200 Nicotine dependence, unspecified, uncomplicated; Z79.891 Long term (current) use of opiate analgesic; Z91.048 Other nonmedicinal substance allergy status; Z88.8 Allergy status to other drugs, medicaments and biological substances; Z91.041 Radiographic dye allergy status; Z88.5 Allergy status to narcotic agent; Z88.2 Allergy status to sulfonamides; Z88.1 Allergy status to other antibiotic agents
CPT/HCPCS: 99211

== ENCOUNTER → 2024-01-01 | Outpatient (CLI) | payer MEDICARE ==
--- NOTE | 2024-01-01 12:55 | MR ---
EXAMINATION TYPE: MR lumbar spine wo/w con DATE OF EXAM: 01/01/2024 COMPARISON: MR lumbar spine October 29, 2023 and older MRIs HISTORY: Prior on synapse, pain from upper back to low back, history of T3 fx, RLE weakness, numbness , worsening TECHNIQUE: Multiplanar, multisequence images of the lumbar spine is performed without and with IV contrast, util izing 9 mL intravenous Gadobutrol FINDINGS: Sagittal images of the lumbar spine show vertebral body heights and alignment to appear sta ble and satisfactory. Multilevel disc desiccation in the mid to lower lumbar spine is redemonstrated. Disc space heights are fairly well preserved. The conus medullaris remains normal in position and si gnal ending mid L1 level. A few Modic type II endplate changes involving anterior endplates in the lo wer lumbar spine are redemonstrated. No abnormal enhancement is seen on current study. Axial images show T12-L1 and L1-L2 levels to remain within normal limits. Axial images at L2-L3 and L3-L4 level 3 demonstrate [id number] facet arthropathy bilaterally. M ild broad disc bulge at L3-L4 level minimally effaces anterior thecal sac and axial image 12. This wa s labeled L4-L5 level on most recent prior MRI. Axial images at L4-L5 level shows moderate to advanced facet arthropathy ligament flavum hypertrophy effacing posterior lateral thecal sac. There is mild broad-based posterior disc protrusion minimally effacing anterior thecal sac. There is mild bilateral neural foraminal narrowing. No significant tineo ge from prior. Axial images at L5-S1 level show mild to moderate facet arthropathy bilaterally. Spinal canal is pres erved. Bilateral neural foramina are patent. Paraspinal muscle bulk is preserved. Persistent subcentimeter thin-walled cyst right kidney axial analia ge 25. IMPRESSION: Multilevel degenerative change in the lumbar spine with most prominent spinal canal sten osis redemonstrated at the labeled L4-L5 level on current study. No significant change from most rece nt MRI.
== END | disposition home or self-care (01) ==
LOC: RADMRIMAIN 11:45
PROVIDERS: ATTEND Orthopaedic Surgery
DX: M47.816 Spondylosis without myelopathy or radiculopathy, lumbar region (principal); M48.061 Spinal stenosis, lumbar region without neurogenic claudication; M54.6 Pain in thoracic spine; R53.1 Weakness
CPT/HCPCS: 72158; A9585

== ENCOUNTER → 2024-01-04 | Outpatient (CLI) | payer MEDICARE ==
--- NOTE | 2024-01-09 14:13 | MR ---
EXAMINATION TYPE: MR thoracic spine wo/w con DATE OF EXAM: 01/04/2024 10:08 PM CLINICAL INDICATION:Male, 53 years old with history of M43.16,M47.26; PHH, Mid and upper back pain COMPARISON: No priors. TECHNIQUE: Multi planar, multi sequence imaging was performed utilizing: T1-weighted, short-tau inver perry recovery and T2-weighted of the thoracic spine. IV Contrast: 9 cc Gadavist (none if empty) FINDINGS: Alignment: Alignment is within normal limits. Vertebral bodies have preserved heights. Spinal cord: Spinal cord is within normal limits for signal. No abnormal postcontrast enhancement. Discs: Intervertebral disc signal is maintained. No evidence of significant spinal canal or neural fo raminal stenosis. There is no evidence of extradural defects or central spinal canal narrowing at any thoracic vertebral body level. No abnormal postcontrast enhancement. Osseous structures: No abnormal bony edema on inversion recovery sequences. Multilevel osteophyte for mation and facet joint arthropathy. Scattered disc space narrowing. IMPRESSION: 1. No evidence for significant spinal canal or neural foraminal stenosis. No abnormal bony edema. No abnormal postcontrast enhancement. 2. Mild multilevel degeneration changes of the spine.
== END | disposition home or self-care (01) ==
LOC: RADMRIMAIN 21:15
PROVIDERS: ATTEND Orthopaedic Surgery
DX: M47.25 Other spondylosis with radiculopathy, thoracolumbar region (principal); M43.16 Spondylolisthesis, lumbar region
CPT/HCPCS: 72157; A9585

== ENCOUNTER → 2024-01-19 | Outpatient (CLI) | payer MEDICARE ==
[2024-01-19 17:26] VITALS: BP 130/89; PULSE 88; RESP 18; TEMP 97.7
--- NOTE | 2024-01-19 18:04 | P.SLEEP ---
History of Present Illness DATE: 01/19/2024 CONSULTATION/NEW PATIENT EVALUATION HISTORY OF PRESENT ILLNESS/SLEEP-WAKE EVALUATION: 53-year-old gentleman had b een evaluated in the sleep center for obstructive sleep apnea hypopnea syndrome, episodes of sleepwalking and nightmares. Patient has history of obstructive sleep apnea diagnosed by another institution by home sleep apnea test. He received CPAP unit. I tried to check CPAP unit but screen is not working in CPAP unit at all and patient did not use any equipment for about 5 months. He was not comfortable with the his CPAP. SLEEP SCHEDULE: Usually sleep schedule from 11:30 PM to 9:30 AM on weekdays and from midnight until 10 AM on the weekend. FALLING ASLEEP: Sometimes patient has difficulties with falling asleep, has TV set in bedroom. DURING SLEEP: Patient usually sleeps on the side position with loud snoring and multiple awakenings from sleep up to 4 times with nocturia. Positive history of sleepwalking episodes and sleep terrors. No history of hypnogogical hallucinations, sleep paralysis, or cataplexy. DURING THE DAY/WAKE STATE: In the morning patient wake up tired, has episodes of depression and anxiety.. [place] sleepiness scale is 9. Patient take nap around 4 PM. PAST MEDICAL HISTORY: Hypertension, diabetes mellitus, gout, depression, anxiety, arthritis, hyperlipidemia, fibromyalgia, iron deficiency. PAST SURGICAL HISTORY: Please see below. MEDICATIONS: Please see below. SOCIAL HISTORY: Please see below. FAMILY HISTORY: Heart problems, sleep apnea, cancer, anemia, diabetes. REVIEW OF SYSTEMS: Loud snoring, multiple awakenings from sleep, sleepiness during the day. No fevers. No double vision. No recent chest pain. No shortness of breath. No abdominal pain. No bleeding episodes. No blood in urine. No seizure episodes. PHYSICAL EXAMINATION: GENERAL: A pleasant patient without any distress. VITAL SIGNS: Please see below. HEENT: PERRLA, EOMI. Evaluation of oropharynx showed tongue protrudes midline, low position of soft palate Mallampati 4. NECK: Supple. No JVD. Thyroid is not palpable. 19 inches in circumference. LUNGS: Clear to percussion and to auscultation. Good air exchange. No wheezing or rhonchi. HEART: S1, S2 regular. No murmurs, gallops or rubs. ABDOMEN: Soft and nontender. Bowel sounds are present. No organomegaly appre ciated. EXTREMITIES: No clubbing or cyanosis. CONCESSIONS MANAGER: Awake, alert, and oriented x3. Cranial nerves 2 to 7 intact. There is no fasciculation or atrophy noted. No focal deficits observed. ASSESSMENT: 1. Loud snoring, multiple awakenings from sleep, extremely low position of soft palate Mallampati 4, wide neck 19 inches in circumference, history of obstructive sleep apnea diagnosed by home sleep apnea test in another institution. Obstructive sleep apnea hypopnea syndrome. 2. History of sleepwalking. 3. History of nightmares. 4. Hypertension. 5 diabetes mellitus. 6 . Gout. 7. Possible fibromyalgia. 8. Depression. 9 . Anxiety. 10. Iron deficiency status post left knee surgery. 11. Status post bilateral surgery for carpal tunnel syndrome. PLAN: 1. Polysomnography for evaluation of patient's breathing during sleep. 2. Following plan after reading sleep study. 3. Preferable position during sleep on the side. 4. No driving if patient feels any sleepiness. Patient is aware of civil and criminal liability for unsafe driving. 5. Sleep hygiene with regular sleep time for at least 7.5-8 hours. 6. Watching weight. Thank you very much for referring this patient for consultation. Sincerely, Arley Salazar MD, PhD, FAASM. Diplomat of [place] [employer], Sleep Medicine Board by [place] [employer] [place] [employer] Handbag Operator of [facility] Past Medical History Past Medical History: Asthma, Coronary Artery Disease (CAD), Chest Pain / Angina, Heart Failure, CVA/TIA, Diabetes Mellitus, Eye Disorder, GERD/Reflux, Hyperlipidemia, Hypertension, Liver Disease, Musculoskeletal Disorder, Prostate Disorder, Renal Disease, Skin Disorder, Sleep Apnea/CPAP/BIPAP, Thyroid Disorder, Vascular Disorder Additional Past Medical History / Comment(s): TMJ, sinus problems, eczema, kidney stones, diverticulitis, back pain w/ DDD, physical limitations, numbness and tingling in bilateral hands, hx skin cancer, hyperflexia, slight cataracts, hx CVA 11/2018-no residual effects, hx of elevated WBC's-sees Dr. Luna-states just normal for him, PVD, Kidney Disease Stage 3, fatty liver, uses CPAP., stroke, , fibromyalgia, arthritis, nasal polyps, bronchitis, snoring, pneumonia History of Any Multi-Drug Resistant Organisms: None Reported Past Surgical History: Adenoidectomy, Hernia Repair, Orthopedic Surgery, Tonsillectomy Additional Past Surgical History / Comment(s): Urolift, wart on uvula removed, pain clinic procedures, left knee arthroscopy X2, varicose vein procedure, bilateral carpal tunnel, L WRIST, Past Anesthesia/Blood Transfusion Reactions: No Reported Reaction Additional Past Anesthesia/Blood Transfusion Reaction / Comment(s): Hard to wake up. Past Psychological History: Anxiety, Depression Additional Psychological History / Comment(s): . Has custody of his 3 daughters. Positive tobacco use. No notation of significant alcohol or recreational drug use. No experience. Has worked as a oseguera. No international travel. No animal exposures Smoking Status: Former smoker Past Alcohol Use History: None Reported Additional Past Alcohol Use History / Comment(s): SMOKED 1PPD SINCE AGE 16, QUIT 11/04/20. No alcohol since 2019. Past Drug Use History: None Reported - Past Family History Mother Family Medical History: Cancer, Deep Vein Thrombosis (DVT) Father Family Medical History: Cancer, Chest Pain / Angina, Congestive Heart Failure (CHF) Additional Family Medical History / Comment(s): BRONCHITIS, PNEUMONIA, LUNG, SLEEP APNEA, CANCER, INSOMNIA, ULCERS, DIABETES, ANEMIA, RESTLESS LEGS Medications and Allergies Home Medications Medication Instructions Recorded Confirmed Type DULoxetine HCL [Cymbalta] 60 mg PO HS 12/31/14 12/15/23 History Levothyroxine Sodium [Synthroid] 88 mcg PO DAILY 11/17/18 01/19/24 History Testosterone Cypionate 200 mg IM Q14D 11/17/18 01/19/24 History [Depo-Testosterone] metFORMIN HCL [Glucophage] 500 mg PO BID 11/17/18 12/15/23 History Cariprazine HCl [Vraylar] 1.5 mg PO DAILY 11/21/19 01/19/24 History Dicyclomine HCl 20 mg PO QID 01/06/21 01/19/24 History Metoprolol Tartrate [Lopressor] 50 mg PO BID 02/04/21 01/19/24 History Atorvastatin [Lipitor] 20 mg PO HS 03/07/21 01/19/24 History hydrALAZINE HCL [Apresoline] 50 mg PO BID 30 Days #60 tab 03/10/21 01/19/24 Rx allopurinoL [Zyloprim] 200 mg PO DAILY 06/02/21 01/19/24 History Albuterol Inhaler [Ventolin Hfa 2 puff INHALATION QID PRN 11/13/21 01/19/24 History Inhaler] Ferrous Sulfate [Feosol] 2 tab PO DAILY 11/13/21 12/15/23 History Empagliflozin [Jardiance] 10 mg PO DAILY 11/25/22 01/19/24 History Pioglitazone [Actos] 15 mg PO DAILY 11/25/22 12/15/23 History Ergocalciferol [Vitamin D2 (1250 1,250 mcg PO Q30D 01/21/23 01/19/24 History Mcg = 80031 Iu)] Pantoprazole [Protonix] 40 mg PO BID 01/21/23 01/19/24 History hydroCHLOROthiazide [Hydrodiuril] 12.5 mg PO DAILY 01/21/23 01/19/24 History Semaglutide [Ozempic] 2 mg SQ SA 06/16/23 01/19/24 History Lidocaine 5% Oint [Xylocaine 5% 1 applic TOPICAL BID PRN 30 Days 11/08/23 12/15/23 Rx Oint] #50 gm Insulin Degludec [Tresiba] 20 units SQ QAM 11/12/23 01/19/24 History Multivitamins, Thera [Multivitamin 1 tab PO DAILY 11/12/23 12/15/23 History (formulary)] Acetaminophen-Codeine 300-30mg 1 tab PO TID PRN 30 Days #90 tablet 12/15/23 Rx [Tylenol w/codeine #3] Baclofen [Lioresal] 10 mg PO TID 30 Days #90 tablet 12/15/23 01/19/24 Rx Pregabalin [Lyrica] 100 mg PO TID 30 Days #90 cap 12/15/23 01/19/24 Rx Allergies Allergy/AdvReac Type Severity Reaction Status Date / Time adhesive tape Allergy Rash/Hives Verified 11/22/23 18:57 [facility]aclor [facility]] Allergy Rash/Hives Verified 11/22/23 18:57 dapagliflozin [From [facility]] Allergy yeast Verified 11/22/23 18:57 infections Iodinated Contrast Media Allergy Rash/Hives,throat Verified 11/22/23 18:57 [Iodinated Contrast Media - swelling IV Dye] propoxyphene napsylate Allergy Rash/Hives Verified 11/22/23 18:57 [From Darvocet-N 100] Sulfa (Sulfonamide Allergy Dyspnea Verified 11/22/23 18:57 Antibiotics) sulfamethoxazole Allergy Rapid Verified 11/22/23 18:57 [From Bactrim] Heart Rate trimethoprim [From Bactrim] Allergy Rapid Verified 11/22/23 18:57 Heart Rate Physical Exam Vitals: Vital Signs Temp Pulse Resp BP Pulse Ox 01/19/24 17:02 97.7 F 88 18 130/89 95 Intake and Output 01/19/24 01/19/24 01/19/24 06:59 14:59 22:59 Other: Weight 91.183 kg Sleep Note - Sleep Data ESS Total: 9 - Sleep Note Sleep Note: Temperature: 97.7 F Pulse Rate: 88 Respiratory Rate: 18 Blood Pressure: 130/89 SpO2: 95 Height: 5 ft 6 in Weight: 91.183 kg BMI: Neck Circumference:
== END ==
LOC: 3 N SLEEP 15:57
PROVIDERS: ATTEND Internal Medicine
DX: G47.33 Obstructive sleep apnea (adult) (pediatric) (principal); F51.3 Sleepwalking [somnambulism]; F51.5 Nightmare disorder; I10 Essential (primary) hypertension; E11.9 Type 2 diabetes mellitus without complications; M10.9 Gout, unspecified; F32.A Depression, unspecified; F41.9 Anxiety disorder, unspecified; D64.9 Anemia, unspecified; R06.83 Snoring; F17.200 Nicotine dependence, unspecified, uncomplicated; Z98.890 Other specified postprocedural states; Z91.048 Other nonmedicinal substance allergy status; Z88.1 Allergy status to other antibiotic agents; Z88.2 Allergy status to sulfonamides; Z91.018 Allergy to other foods; Z88.8 Allergy status to other drugs, medicaments and biological substances; Z79.4 Long term (current) use of insulin; Z79.899 Other long term (current) drug therapy; Z79.890 Hormone replacement therapy; Z79.84 Long term (current) use of oral hypoglycemic drugs
CPT/HCPCS: 99211

== ENCOUNTER 2024-02-06 19:48 | Outpatient (CLI) | payer MEDICARE ==
--- NOTE | 2024-02-09 11:08 | P.PCN ---
Description of Procedure: POLYSOMNOGRAPHY REPORT PROCEDURE(S)/DATE(S): Polysomnography 02/06/2024 CLINICAL: Patient has been seen in the sleep center for evaluation of obstructive sleep apnea-hypopnea syndrome. Please see my consultation. Sleep study has been done for evaluation of patient breathing during the sleep. PROCEDURE: The standard montage for clinical polysomnography included the electroencephalogram, the electrooculogram, the mentalis surface electromyography and Lead II cardiography. The respiratory battery consisted of measurements of nasal/buccal air flow, pressure transducer measurements from nose, thoracic and/or abdominal effort and intercostal surface electromyography. Video monitoring has been done to check for any parasomnia events. Nocturnal oxyhemoglobin saturations were obtained by finger oximetry. Step-trimble titration with positive airway pressure was utilized to control the respiratory events, if necessary. RESULTS: During the diagnostic sleep study sleep efficiency was normal 89.9%. Latency to sleep onset was borderline 26.5 min. Sleep architecture showed stage NI was slightly increased to 9.9%, Delta sleep was extremely short 1.6%, REM sleep was absent 0%. Respiratory channel showed 9 obstructive apneas, 0 mixed apneas, 0 central apneas, 111 hypopneas with lowest oxygen level 85%. Total apnea hypopnea index was 19.3. Heart rate was in the range between 83 and 95, average 88. EMG showed 1.6 periodic limb movements per hour with moderate. IMPRESSIONS: 1. Moderate obstructive sleep apnea hypopnea syndrome. 2. No significant periodic limb movements have been documented. Please see other impressions from consultation PLAN: 1. The patient will have PAP titration for correction of respiratory abnormalities during the sleep. 2. Losing weight program. 3. Sleep hygiene with regular time in bed for at least 7-1/2 hours. 4. No driving if feeling sleepiness. Thank you very much for allowing me to participate in the management of your patient. Sincerely, Arley Salazar MD, PhD, FAASM. Diplomat of [place] [employer], Sleep Medicine Board by [place] [employer] Naphthalene Operator Helper of [facility] [place]
== END 2024-02-07 05:30 | disposition home or self-care (01) ==
LOC: 3 N SLEEP 19:48
PROVIDERS: ATTEND Internal Medicine
DX: G47.33 Obstructive sleep apnea (adult) (pediatric) (principal); G47.61 Periodic limb movement disorder; Z99.89 Dependence on other enabling machines and devices; Z91.048 Other nonmedicinal substance allergy status; Z88.2 Allergy status to sulfonamides; Z88.1 Allergy status to other antibiotic agents; Z88.3 Allergy status to other anti-infective agents; F17.200 Nicotine dependence, unspecified, uncomplicated
CPT/HCPCS: 95810

== ENCOUNTER → 2024-02-09 | Outpatient (CLI) | payer MEDICARE ==
--- NOTE | 2024-02-09 13:51 | P.PAINPG ---
PQRS Measure Charge Sheet Comment: A 53 yr old male with a history of severe and chronic R hip and LBP x 1 yr secondary to R hip DJD, lumbar DDD and spondylosis with facet arthropathy without myelopathy presents today for medication refills. Pain level is provoked at 7 /10 in intensity, constant, localized in the lumbar spine and R hip, pred ominantly axial, throbbing in character without shooting pain. Pain is provoked by bending, lifting in excess of 10 lbs. Pain is alleviated with medications, injections, ice, heat, PT x 8 wks in Nov 2022, physician guided home stretching regimen daily since Nov 2022, reclining and rest. Oswestry axial pain score of 26. Pt states his insurance denied coverage of Lyrica. Awaiting prescription authorization request. Interventional pain procedures completed include JOSEPHINE Fink RFA L3-L5 (Aug 2022) Patient is currently on Tyl #3, Baclofen, Lyrica, Mobic Patient denies any side effects of the medication(s), denies excessive drowsiness or sleepiness, denies suicidal ideation and reports that the current pain medication is helping to control the pain and improve activities of daily living. Patient denies any motor or sensory deficits. Patient denies any fever or night sweats, denies any change in the bowel movements or urination. Physical Examination: -Constitutional: Cooperative. Not in acute distress . - Neurologic: Cranial nerve II to XII intact. No focal neurological deficits. - Psychatric: Alert & oriented x 3. Matching mood & appropriate affect. Judgment and insight intact. - Musculoskeletal: Cervical spine: Muscle bulk/ tone/ strength in the bilateral upper extremities normal Vertebral body tenderness to palpation over Spurling test positive Distraction test positive Facet loading test positive TTP Thoracic spine Muscle bulk / tone/ strength in the bilateral paraspinal muscles normal Vertebral body tender to palpation over Facet loading test positive TTP Lumbar spine: +R Hip Abduction Motor bulk/ tone/ strength lower extremities , thigh and legs : 5/5 Deep tendon reflexes : Normal Knee Jerk. Normal Ankle Jerk . Vertebral body tenderness to palpation over L4 Lumbar Facet Loading Test positive Straight Leg Raise: positive at 30 degrees right side> left side Gaenslen's Test positive Sacral spine : Severe tenderness over the Sacroiliac joint: right side / left side Range of motion: Flexion of the lumbar spine <60 degrees Range of motion: Extension of the lumbar spine <20 degrees Gaenslen's Test positive right side / left side Abebe test: positive right side / left side Thigh Thrust Test positive right side / left side Sacral Thrust Test positive right side / left side Imaging: MRI noncontrast of the lumbar spine from 10/29/23 reviewed Assessment and plan: Chronic LBP secondary to lumbar spinal stenosis, DDD, spondylosis with facet arthropathy without myelopathy, R hip DJD Recommendation of R hip intra articular joint injection #1. May need please have injections for optimal pain relief. Risks, benefits of procedure discussed and patient verbalized understanding. Protocol for discontinuation/continuation of medication surrounding procedure discussed. Chronic and current use of high-risk medication (Opioids). The patient was counseled about risk of opioid use, psychological risk associated with opioids and was orally counseled to not overuse , divert or sell medications. Pt is to store medication in a safe location. The patient is counseled against driving while using narcotic medications and also not to use alcohol or any illicit recreational drugs. Patient verbalized understanding that the lack of compliance will result in failure to renew narcotic prescription(s) as well as possible discharge from the clinic Diagnoses, prognosis and treatment options including but not limited to physical therapy, surgical interventions, interventional therapies and medication management including narcotics and adjuvant medication were discussed. All patient questions answered. UDS fr 11/08/23 not available for unknown reasons. Today, pt states he can not provide urine sample. Blood tox screen from 12/15/23 reviewed and +Opiates. MAPS reviewed and it was appropriate. Prescription of Tyl #3 #60. Lyrica 100mg #90, Baclofen w 1 RF. Use, side effects, adverse reactions and safe storage discussed. Pt acknowledged understanding. I have spent less than 30 minutes on patient care today. Dr Cullen was available by phone for the evaluation of this patient. The time was used to re view the medical records including relevant urine studies and Prescription history (MAPs), review of the available imaging, evaluation and examination of the patient, coordination of care with the medical staff and if applicable referring physicians, as well as creation of the medical record - Pain Location Bilateral Lower Back Non-Pharmacological Interventions: Heat, Position/Reposition Pharmacological Interventions: Epidural, Scheduled Medication PQRS Narrative: Smoking Status Current every day smoker Narcotic Agreement Date Signed 07/07/23 Hx Alcohol Use (MH) No Home Medications: Ambulatory Orders DULoxetine HCL [Cymbalta] 60 mg PO HS 12/31/14 Levothyroxine Sodium [Synthroid] 88 mcg PO DAILY 11/17/18 Testosterone Cypionate [Depo-Testosterone] 200 mg IM Q14D 11/17/18 metFORMIN HCL [Glucophage] 500 mg PO BID 11/17/18 Cariprazine HCl [Vraylar] 1.5 mg PO DAILY 11/21/19 Dicyclomine HCl 20 mg PO QID 01/06/21 Metoprolol Tartrate [Lopressor] 50 mg PO BID 02/04/21 Atorvastatin [Lipitor] 20 mg PO HS 03/07/21 hydrALAZINE HCL [Apresoline] 50 mg PO BID 30 Days #60 tab 03/10/21 allopurinoL [Zyloprim] 200 mg PO DAILY 06/02/21 Albuterol Inhaler [Ventolin Hfa Inhaler] 2 puff INHALATION QID PRN 11/13/21 Ferrous Sulfate [Feosol] 2 tab PO DAILY 11/13/21 Empagliflozin [Jardiance] 10 mg PO DAILY 11/25/22 Pioglitazone [Actos] 15 mg PO DAILY 11/25/22 Ergocalciferol [Vitamin D2 (1250 Mcg = 85066 Iu)] 1,250 mcg PO Q30D 01/21/23 Pantoprazole [Protonix] 40 mg PO BID 01/21/23 hydroCHLOROthiazide [Hydrodiuril] 12.5 mg PO DAILY 01/21/23 Semaglutide [Ozempic] 2 mg SQ SA 06/16/23 Lidocaine 5% Oint [Xylocaine 5% Oint] 1 applic TOPICAL BID PRN 30 Days #50 gm 11/08/23 Insulin Degludec [Tresiba] 20 units SQ QAM 11/12/23 Multivitamins, Thera [Multivitamin (formulary)] 1 tab PO DAILY 11/12/23 Acetaminophen-Codeine 300-30mg [Tylenol w/codeine #3] 1 tab PO TID PRN 30 Days #90 tablet 02/09/24 Baclofen [Lioresal] 10 mg PO TID 30 Days #90 tablet 02/09/24 Pregabalin [Lyrica] 100 mg PO TID 30 Days #90 cap 02/09/24 Controlled Substance Measures - Controlled Substance Measures Is patient prescribed a controlled substance at discharge?: Yes When asked, does pt state using other controlled substances?: Yes If prescribed controlled substance>3 days was MAPS reviewed?: Yes
[2024-02-09 13:52] VITALS: BP 184/101; PULSE 76; RESP 16; TEMP 98.3
== END ==
LOC: PNWHC3 12:51
PROVIDERS: ATTEND Specialist
DX: M47.816 Spondylosis without myelopathy or radiculopathy, lumbar region (principal); M16.11 Unilateral primary osteoarthritis, right hip; M48.061 Spinal stenosis, lumbar region without neurogenic claudication; F17.200 Nicotine dependence, unspecified, uncomplicated; Z91.048 Other nonmedicinal substance allergy status; Z88.1 Allergy status to other antibiotic agents; Z88.2 Allergy status to sulfonamides; Z88.8 Allergy status to other drugs, medicaments and biological substances
CPT/HCPCS: 99211

== ENCOUNTER 2024-02-15 12:26 | Day surgery (SDC) | payer MEDICARE ==
[2024-02-15 13:03] LABS: Glucose,Whole Blood 162 mg/dL (70-110)
[2024-02-15 13:12] VITALS: RESP 18; TEMP 97
[2024-02-15] MEDS ORDERED: ROPIVACAINE 5MG/ML 20ML VIAL ONE (13:29)
[2024-02-15] MEDS ORDERED: methylPREDNISolone ACETATE 40 MG/ML 1 ML VIAL ONE (13:29)
--- NOTE | 2024-02-15 13:40 | P.PCN ---
Date of Procedure: 02/15/24 Procedure(s) Performed: Description of Procedure: PREOPERATIVE DIAGNOSIS: Right hip osteoarthritis POSTOPERATIVE DIAGNOSIS: same PROCEDURES:1- Right intra-articular hip injection with fluoroscopy (fluoroscopy images available in the radiology Department ) ANESTHESIA: Ropivacaine 0.5% 3 mL only EBL: Minimal PROCEDURE INDICATION: The patient with left hip pain secondary to osteoarthritis who has been unresponsive to conservative therapy. No use of blood thinners. PROCEDURE DESCRIPTION / TECHNIQUE: The patient was seen and identified in the preoperative area. Risks, benefits, complications, and alternatives were discussed with the patient (including but not limited to incomplete pain relief, bleeding, infection, nerve damage, and allergies to medications), the patient agreed to proceed with the procedure and signed the consent after all questions were answered. Patient was taken to the OR and time out was completed to verify proper patient, position, laterality of pain, and allergies. Pt was placed in the Supine position. Vital signs remained stable throughout the procedure. . The Hip and the Groin area was prepped and draped in the usual sterile fashion. Vital signs were closely monitored during the procedure. Using AP fluoroscopy, the femoral neck was identified, marked, and localized with Ropivacaine 0.5 % . Subsequently, a 22 gauge 5-inch spinal needle was advanced guided by fluoroscopy to the 10 o'clock position on the femoral neck until the needle was felt entering the hip capsule. After negative aspiration for CSF or heme and in the absence of paresthesias, the full 6 ml ml of the block solution containing Depo-Medrol 40 mg and 5 mL of preservative-free 0.5% Ropivacaine was injected. At the end of the procedure, the skin was cleansed and bandages were applied. COMPLICATIONS: No acute complications. DISPOSITION / PLANS: The patient was placed in a supine position and transferred to the recovery area in a stable condition for observation and was discharged from the recovery room after meeting discharge criteria. Home discharge instructions given to the patient by the staff.. note= Isovue was not injected because patient had allergy to IVP dye
[2024-02-15 14:06] LABS: Glucose,Whole Blood 133 mg/dL (70-110)
--- NOTE | 2024-02-15 14:33 | FL ---
EXAMINATION TYPE: FL guided pain mgmt statistic Intraoperative/procedural fluoroscopic services were provided. Total fluoroscopy time is 11.8 seconds with a total of 2 submitted images to PACS. Please s ee the operative/procedural note for further details. DAP: [id number] mGym2
[2024-02-15 14:39] VITALS: BP 145/77; PULSE 87
== END 2024-02-15 14:10 | disposition home or self-care (01) ==
LOC: ORPAIN 12:26
PROVIDERS: ATTEND Specialist
DX: M16.11 Unilateral primary osteoarthritis, right hip (principal); E11.9 Type 2 diabetes mellitus without complications; Z79.82 Long term (current) use of aspirin; Z88.2 Allergy status to sulfonamides; Z91.041 Radiographic dye allergy status; Z88.9 Allergy status to unspecified drugs, medicaments and biological substances
CPT/HCPCS: 20610; 77002; J2795; J1010

== ENCOUNTER 2024-02-21 15:56 | Observation (INO) | payer MEDICARE ==
[2024-02-21 16:25] LABS: Basophils # (A) 0.1 k/uL (0-0.2); Basophils % (A) 1 %; Eosinophils # (A) 0.4 k/uL (0-0.7); Eosinophils % (A) 3 %; HCT 50.7 % (39.0-53.0); HGB 17.4 gm/dL (13.0-17.5); Lymphocytes # (A) 2.1 k/uL (1.0-4.8); Lymphocytes % (A) 16 %; MCH 34.5 pg (25.0-35.0); MCHC 34.4 g/dL (31.0-37.0); MCV 100.2 fL (80.0-100.0); Macrocytosis Slight; Mean Platelet Volume 8.7; Monocytes # (A) 0.4 k/uL (0-1.0); Monocytes % (A) 3 %; Neutrophils # (A) 10.2 k/uL (1.3-7.7); Neutrophils % (A) 77 %; Platelet Count 364 k/uL (150-450); RBC 5.06 m/uL (4.30-5.90); RDW 14.3 % (11.5-15.5); WBC 13.2 k/uL (3.8-10.6)
[2024-02-21 16:34] VITALS: TEMP 98
[2024-02-21 16:36] LABS: ALT 48 U/L (4-49); AST 39 U/L (17-59); African American GFR (CKD) 82 (>60 ml/min/1.73 sqM); Albumin 4.7 g/dL (3.5-5.0); Alkaline Phosphatase 84 U/L (38-126); Anion Gap 10 mmol/L; Blood Urea Nitrogen 14 mg/dL (9-20); Calcium 10.3 mg/dL (8.4-10.2); Carbon Dioxide 29 mmol/L (22-30); Chloride 99 mmol/L (98-107); Glucose 144 mg/dL (74-99); Magnesium 1.8 mg/dL (1.6-2.3); Non-African American GFR(CKD) 71 (>60 ml/min/1.73 sqM); Potassium 4.3 mmol/L (3.5-5.1); Sodium 138 mmol/L (137-145); Total Bilirubin 0.6 mg/dL (0.2-1.3); Total Protein 7.4 g/dL (6.3-8.2)
[2024-02-21 16:41] LABS: INR 0.9 (<1.2); Partial Thromboplastin Time 25.3 sec (22.0-30.0); Prothrombin Time 10.3 sec (10.0-12.5)
--- NOTE | 2024-02-21 16:52 | XR ---
EXAMINATION TYPE: XR chest 2V DATE OF EXAM: 02/21/2024 COMPARISON: 01/13/2023 HISTORY: Chest pain TECHNIQUE: Frontal and lateral views of the chest are obtained. FINDINGS: There is no focal air space opacity, pleural effusion, or pneumothorax seen. The cardiac silhouette size is within normal limits. The osseous structures are intact. IMPRESSION: No acute cardiopulmonary process.
--- NOTE | 2024-02-21 18:04 | ED ---
Chest Pain HPI - General Chief Complaint: Chest Pain Stated Complaint: Chest pain Time Seen by Provider: 02/21/24 17:58 Source: patient, RN notes reviewed, old records reviewed Mode of arrival: ambulatory Limitations: no limitations - History of Present Illness Initial Comments: This is a 53-year-old male to the ER for evaluation today. Patient presents today for evaluation regards to chest pain with long complicated medical history. Patient's symptoms are persistent here in the emergency department with left-sided chest pain which began yesterday and persistent today with history of stress test within the past year but no prior cardiac catheterization. Patient also having some shortness of breath and has had increasing shortness of breath of recent. MD Complaint: chest pain -: hour(s) Onset: during rest, during exertion Pain Location: left chest Pain Radiation: LUE, back Severity: mild Severity scale (1-10): 5 Quality: tightness, sharp Consistency: intermittent Improves With: nothing Worsens With: nothing Anginal Symptoms: sense of impending doom Other Symptoms: palpitations Treatments Prior to Arrival: none - Related Data Home Medications Medication Instructions Recorded Confirmed DULoxetine HCL [Cymbalta] 60 mg PO HS 12/31/14 02/21/24 Levothyroxine Sodium [Synthroid] 88 mcg PO DAILY 11/17/18 02/21/24 Testosterone Cypionate 200 mg IM Q14D 11/17/18 02/21/24 [Depo-Testosterone] Dicyclomine HCl 20 mg PO QID PRN 01/06/21 02/21/24 Metoprolol Tartrate [Lopressor] 50 mg PO BID 02/04/21 02/21/24 allopurinoL [Zyloprim] 200 mg PO DAILY 06/02/21 02/21/24 Ferrous Sulfate [Feosol] 325 mg PO DAILY 11/13/21 02/21/24 Empagliflozin [Jardiance] 10 mg PO DAILY 11/25/22 02/21/24 Pioglitazone [Actos] 15 mg PO DAILY 11/25/22 02/21/24 Pantoprazole [Protonix] 40 mg PO BID 01/21/23 02/21/24 hydroCHLOROthiazide [Hydrodiuril] 12.5 mg PO DAILY 01/21/23 02/21/24 Semaglutide [Ozempic] 2 mg SQ WE 06/16/23 02/21/24 Multivitamins, Thera [Multivitamin 1 tab PO DAILY 11/12/23 02/21/24 (formulary)] Aspirin EC [Ecotrin Low Dose] 81 mg PO DAILY 02/21/24 02/21/24 Atorvastatin [Lipitor] 20 mg PO HS 02/21/24 02/21/24 Cariprazine HCl [Vraylar] 3 mg PO DAILY 02/21/24 02/21/24 Cyanocobalamin (Vitamin B-12) 1,000 mcg PO DAILY 02/21/24 02/21/24 [Vitamin B-12] Famotidine 40 mg PO HS 02/21/24 02/21/24 Folic Acid 1 mg PO DAILY 02/21/24 02/21/24 Insulin Degludec [Tresiba 20 units SQ DAILY 02/21/24 02/21/24 Flextouch U-200 Pen] Insulin Glargine,Hum.rec.anlog 1 dose SQ DIRECTED 02/21/24 02/21/24 [Lantus Solostar Pen] Ivabradine HCl [Corlanor] 5 mg PO BID 02/21/24 02/21/24 Naproxen [EC-Naprosyn] 500 mg PO BID PRN 02/21/24 02/21/24 Prazosin [Minipress] 1 mg PO HS 02/21/24 02/21/24 hydrALAZINE HCL [Apresoline] 25 mg PO TID 02/21/24 02/21/24 metFORMIN HCL ER [Glucophage XR] 500 mg PO BID-W/MEALS 02/21/24 02/21/24 Previous Rx's Medication Instructions Recorded Acetaminophen-Codeine 300-30mg 1 tab PO TID PRN 30 Days #90 tablet 02/09/24 [Tylenol w/codeine #3] Baclofen [Lioresal] 10 mg PO TID 30 Days #90 tablet 02/09/24 Pregabalin [Lyrica] 100 mg PO TID 30 Days #90 cap 02/09/24 Allergies Allergy/AdvReac Type Severity Reaction Status Date / Time adhesive tape Allergy Rash/Hives Verified 02/21/24 19:04 cefaclor [From Ceclor] Allergy Rash/Hives Verified 02/21/24 19:04 dapagliflozin [From Farxiga] Allergy yeast Verified 02/21/24 19:04 infections Iodinated Contrast Media Allergy Rash/Hives,throat Verified 02/21/24 19:04 [Iodinated Contrast Media - swelling IV Dye] propoxyphene napsylate Allergy Rash/Hives Verified 02/21/24 19:04 [From Darvocet-N 100] Sulfa (Sulfonamide Allergy Dyspnea, Verified 02/21/24 19:04 Antibiotics) rapid heart rate sulfamethoxazole Allergy Rapid Verified 02/21/24 19:04 [From Bactrim] Heart Rate, Shortness of breath trimethoprim [From Bactrim] Allergy Rapid Verified 02/21/24 19:04 Heart Rate, Shortness of breath Review of Systems ROS Statement: Those systems with pertinent positive or pertinent negative responses have been documented in the HPI. ROS Other: All systems not noted in ROS Statement are negative. EKG Findings - EKG Comments: EKG Findings:: EKG is sinus 83 AK 153 QRS 117 QTc 396 - EKG Results: EKG: interpreted by ERMD Past Medical History Past Medical History: Asthma, Coronary Artery Disease (CAD), Chest Pain / Angina, Heart Failure, CVA/TIA, Diabetes Mellitus, Eye Disorder, GERD/Reflux, Hyperlipidemia, Hypertension, Liver Disease, Musculoskeletal Disorder, Prostate Disorder, Renal Disease, Skin Disorder, Sleep Apnea/CPAP/BIPAP, Thyroid Disord er, Vascular Disorder Additional Past Medical History / Comment(s): TMJ, sinus problems, eczema, kidney stones, diverticulitis, back pain w/ DDD, physical limitations, numbness and tingling in bilateral hands, hx skin cancer, hyperflexia, slight cataracts, hx CVA 11/2018-no residual effects, hx of elevated WBC's-sees Dr. Luna-states just normal for him, PVD, Kidney Disease Stage 3, fatty liver, uses CPAP., stroke, , fibromyalgia, arthritis, nasal polyps, bronchitis, snoring, pneumonia History of Any Multi-Drug Resistant Organisms: None Reported Past Surgical History: Adenoidectomy, Hernia Repair, Orthopedic Surgery, Tonsillectomy Additional Past Surgical History / Comment(s): Urolift, wart on uvula removed, pain clinic procedures, Lt. knee arthroscopy X2, varicose vein procedure, bilat. CTR, Lt. wrist surgery, Bilat. elbow surgery, cervical fusion Past Anesthesia/Blood Transfusion Reactions: No Reported Reaction Additional Past Anesthesia/Blood Transfusion Reaction / Comment(s): Hard to wake up. Past Psychological History: Anxiety, Depression Smoking Status: Former smoker Past Alcohol Use History: None Reported Past Drug Use History: None Reported - Past Family History Mother Family Medical History: Cancer, Deep Vein Thrombosis (DVT) Father Family Medical History: Cancer, Chest Pain / Angina, Congestive Heart Failure (CHF) Additional Family Medical History / Comment(s): BRONCHITIS, PNEUMONIA, LUNG, SLEEP APNEA, CANCER, INSOMNIA, ULCERS, DIABETES, ANEMIA, RESTLESS LEGS General Exam Limitations: no limitations General appearance: alert, in no apparent distress Head exam: Present: atraumatic, normocephalic, normal inspection Eye exam: Present: normal appearance, PERRL, EOMI. Absent: scleral icterus, conjunctival injection, periorbital swelling ENT exam: Present: normal exam, mucous membranes moist Neck exam: Present: normal inspection. Absent: tenderness, meningismus, lymphadenopathy Respiratory exam: Present: normal lung sounds bilaterally. Absent: respiratory distress, wheezes, rales, rhonchi, stridor Cardiovascular Exam: Present: regular rate, normal rhythm, normal heart sounds. Absent: systolic murmur, diastolic murmur, rubs, gallop, clicks GI/Abdominal exam: Present: soft, normal bowel sounds. Absent: distended, tenderness, guarding, rebound, rigid Extremities exam: Present: normal inspection, full ROM, normal capillary refill. Absent: tenderness, pedal edema, joint swelling, calf tenderness Back exam: Present: normal inspection Neurological exam: Present: alert, oriented X3, CN II-XII intact Psychiatric exam: Present: normal affect, normal mood Skin exam: Present: warm, dry, intact, normal color. Absent: rash Course Vital Signs 02/21/24 02/21/24 02/21/24 16:01 16:02 17:02 Temperature 98 F Pulse Rate 87 70 Pulse Rate [ Manual Plate Filler ] Respiratory 20 16 16 Rate Blood Pressure 136/87 130/82 120/72 O2 Sat by Pulse 99 98 99 Oximetry 02/21/24 02/21/24 19:39 19:42 Temperature Pulse Rate 88 Pulse Rate [ 70 Manual Plate Filler ] Respiratory 18 Rate Blood Pressure 121/80 O2 Sat by Pulse 95 Oximetry - Reevaluation(s) Reevaluation #1: 02/21/24 23:07 Medical records reviewed Reevaluation #2: 02/21/24 23:07 Patient still with episodic chest pain here in the ER Reevaluation #3: 02/21/24 23:07 Patient informed of results and questions answered Reevaluation #4: Was pt. sent in by a medical professional or institution ([facility]EC[facility] Loja, [employer], urgent care, hospital, or halfway...) When possible be specific @ -no Did you speak to anyone other than the patient for history (EMS, parent, family, police, friend...)? What history was obtained from this source @ -no Did you review nursing and triage notes (agree or disagree)? Why? @ -agree Are old charts reviewed (outside hosp., previous admission, EMS record, old EKG, old radiological studies, urgent care reports/EKG's, halfway records)? Report findings @ -yes Differential Diagnosis (chest pain, altered mental status, abdominal pain women, abdominal pain men, vaginal bleeding, weakness, fever, dyspnea, syncope, h eadache, dizziness, GI bleed, back pain, seizure, CVA, palpatations, mental health, musculoskeletal)? @ -prior EKG interpreted by me (3pts min.). @ -yes X-rays interpreted by me (1pt min.). @ -yes negative for acute disease CT interpreted by me (1pt min.). @ -no U/S interpreted by me (1pt. min.). @ -no What testing was considered but not performed or refused? (CT, X-rays, U/S, labs)? Why? @ -none What meds were considered but not given or refused? Why? @ -none Did you discuss the management of the patient with other professionals (professionals i.e. ALEC[facility] Loja, [employer], lab, RT, psych nurse, social media developer, correctional treatment specialist, teacher, wildlife officer, insurance case manager)? Give summary @ -no Was smoking cessation discussed for >3mins.? @ -no Was critical care preformed (if so, how long)? @ -no Were there social determinants of health that impacted care today? How? (Homelessness, low income, unemployed, alcoholism, drug addiction, transportation, low edu. Level, literacy, decrease access to med. care, penitentiary, rehab)? @ -none Was there de-escalation of care discussed even if they declined (Discuss DNR or withdrawal of care, Hospice)? DNR status @ -no What co-morbidities impacted this encounter? (DM, HTN, Smoking, COPD, CAD, Cancer, CVA, ARF, Chemo, Hep., AIDS, mental health diagnosis, sleep apnea, morbid obesity)? @ -none Was patient admitted / discharged? Hospital course, mention meds given and route, prescriptions, significant lab abnormalities, going to OR and other pertinent info. @ - Undiagnosed new problem with uncertain prognosis? @ -no Drug Therapy requiring intensive monitoring for toxicity (Heparin, Nitro, Insulin, Cardizem)? @ -no Were any procedures done? @ -no Diagnosis/symptom? @ - Acute, or Chronic, or Acute on Chronic? @ -Acute Uncomplicated (without systemic symptoms) or Complicated (systemic symptoms)? @ -Complicated Side effects of treatment? @ -no Exacerbation, Progression, or Severe Exacerbation? @ -exacerbation Poses a threat to life or bodily function? How? (Chest pain, USA, SC, pneumonia, PE, COPD, DKA, ARF, appy, cholecystitis, CVA, Diverticulitis, Homicidal, Suicidal, threat to staff... and all critical care pts) @ -yes Reevaluation #5: Differential Chest Pain: Stable Angina, Unstable Angina, STEMI, NSTEMI Aortic Dissection, Pneumothorax, Musculoskeletal, Esophageal Spasm GERD, Cholecystitis, Pancreatitis, Zoster, this is not meant to be an all-inclusive list. - Consultations Consultation #1: spoke with giovanni who agrees to admit this patient Chest Pain MDM - MDM 53 male to the ER for evaluation patient [facility] for chest pain, patient has significant cardiac risk factors and will admit for chest pain observation Critical Care Time Critical Care Time: Yes Total Critical Care Time: 31 Disposition Clinical Impression: Chest pain, Unstable angina pectoris Disposition: ADMITTED IP TO THIS HOSP Condition: Fair Is patient prescribed a controlled substance at d/c from ED?: No Time of Disposition: 20:00
[2024-02-21] MEDS ORDERED: NITROGLYCERIN SL TABS 0.4 MG TAB SUBLINGUAL PRN (20:00)
[2024-02-21] MEDS: METOPROLOL TARTRATE 25 MG TAB PO SCH (20:13)
[2024-02-21] MEDS: ASPIRIN 81 MG PO STA (20:14)
[2024-02-21] MEDS: MORPHINE SULFATE 4 MG/ML SYRINGE IV PRN (20:15)
[2024-02-22] MEDS ORDERED: DEXTROSE 50% SYRINGE 50 ML IVP PRN ×2 (02:07)
--- NOTE | 2024-02-22 02:13 | P.HPIM ---
History of Present Illness H&P Date: 02/21/24 Chief Complaint: Chest pain 53-year-old male with coronary artery disease, diabetes mellitus, hypertension Patient coming in due to episodes of chest pain he described it as left-sided chest pain dull achy pain radiating to the neck and shoulder has been going on since yesterday waxes and wanes. He reports that he is very busy has been running errands all day and pain has been waxing and waning all day sometimes associated with heavy breathing and palpitations but denies any nausea vomiting profuse sweating dizziness lightheadedness or syncope Patient does have history of similar pains in the past he had a stress test done about a month ago was reported to be unremarkable Patient denies tobacco smoking illicit drugs or heavy alcohol He denies any fevers chills upper respiratory infection symptoms runny nose sore throat coughing denies any recent travel or hospital stay denies any history of blood clots denies any history of cancer review of systems Pertinent positives as noted in HPI. All other systems were reviewed and are negative on exam Constitutional: No acute distress, conversant, pleasant Eyes: Anicteric sclerae, moist conjunctiva, Pupils equal round reactive to light ENMT: NC/AT Oropharynx clear, no erythema, or exudates Neck: Supple, no masses, or JVD No carotid bruits No thyromegaly Lungs: Clear to auscultation Clear to percussion Normal respiratory effort, no accessory muscle use Cardiovascular: Heart regular in rate and rhythm, No murmurs, gallops, or rubs No peripheral edema Abdominal: Soft Nontender, no guarding, rebound or rigidity Abdomen moving with respiration Normoactive bowel sounds Extremities: No digital cyanosis No clubbing Pedal pulses intact and symmetrical Radial pulses intact and symmetrical No calf tenderness Psychiatric: Alert and oriented to person, place and time Appropriate affect fair judgement Neuro Muscles Strength 5/5 in all 4 extremities Sensation to light touch grossly present throughout Cranial nerves II-XII grossly intact Lymphatics: no palpable cervical or supraclavicular lymph nodes Past Medical History Past Medical History: Asthma, Coronary Artery Disease (CAD), Chest Pain / Angina, Heart Failure, CVA/TIA, Diabetes Mellitus, Eye Disorder, GERD/Reflux, Hyperlipidemia, Hypertension, Liver Disease, Musculoskeletal Disorder, Prostate Disorder, Renal Disease, Skin Disorder, Sleep Apnea/CPAP/BIPAP, Thyroid Disorder, Vascular Disorder Additional Past Medical History / Comment(s): TMJ, sinus problems, eczema, kidney stones, diverticulitis, back pain w/ DDD, physical limitations, numbness and tingling in bilateral hands, hx skin cancer, hyperflexia, slight cataracts, hx CVA 11/2018-no residual effects, hx of elevated WBC's-sees Dr. Luna-states just normal for him, PVD, Kidney Disease Stage 3, fatty liver, uses CPAP., stroke, , fibromyalgia, arthritis, nasal polyps, bronchitis, snoring, pneumonia History of Any Multi-Drug Resistant Organisms: None Reported Past Surgical History: Adenoidectomy, Hernia Repair, Orthopedic Surgery, Tonsillectomy Additional Past Surgical History / Comment(s): Urolift, wart on uvula removed, pain clinic procedures, Lt. knee arthroscopy X2, varicose vein procedure, bilat. CTR, Lt. wrist surgery, Bilat. elbow surgery, cervical fusion Past Anesthesia/Blood Transfusion Reactions: No Reported Reaction Additional Past Anesthesia/Blood Transfusion Reaction / Comment(s): Hard to wake up. Past Psychological History: Anxiety, Depression Smoking Status: Former smoker Past Alcohol Use History: None Reported Past Drug Use History: None Reported - Past Family History Mother Family Medical History: Cancer, Deep Vein Thrombosis (DVT) Father Family Medical History: Cancer, Chest Pain / Angina, Congestive Heart Failure (CHF) Additional Family Medical History / Comment(s): BRONCHITIS, PNEUMONIA, LUNG, SLEEP APNEA, CANCER, INSOMNIA, ULCERS, DIABETES, ANEMIA, RESTLESS LEGS Medications and Allergies Home Medications Medication Instructions Recorded Confirmed Type DULoxetine HCL [Cymbalta] 60 mg PO HS 12/31/14 02/21/24 History Levothyroxine Sodium [Synthroid] 88 mcg PO DAILY 11/17/18 02/21/24 History Testosterone Cypionate 200 mg IM Q14D 11/17/18 02/21/24 History [Depo-Testosterone] Dicyclomine HCl 20 mg PO QID PRN 01/06/21 02/21/24 History Metoprolol Tartrate [Lopressor] 50 mg PO BID 02/04/21 02/21/24 History allopurinoL [Zyloprim] 200 mg PO DAILY 06/02/21 02/21/24 History Ferrous Sulfate [Feosol] 325 mg PO DAILY 11/13/21 02/21/24 History Empagliflozin [Jardiance] 10 mg PO DAILY 11/25/22 02/21/24 History Pioglitazone [Actos] 15 mg PO DAILY 11/25/22 02/21/24 History Pantoprazole [Protonix] 40 mg PO BID 01/21/23 02/21/24 History hydroCHLOROthiazide [Hydrodiuril] 12.5 mg PO DAILY 01/21/23 02/21/24 History Semaglutide [Ozempic] 2 mg SQ WE 06/16/23 02/21/24 History Multivitamins, Thera [Multivitamin 1 tab PO DAILY 11/12/23 02/21/24 History (formulary)] Acetaminophen-Codeine 300-30mg 1 tab PO TID PRN 30 Days #90 tablet 02/09/24 02/21/24 Rx [Tylenol w/codeine #3] Baclofen [Lioresal] 10 mg PO TID 30 Days #90 tablet 02/09/24 02/21/24 Rx Pregabalin [Lyrica] 100 mg PO TID 30 Days #90 cap 02/09/24 02/21/24 Rx Aspirin EC [Ecotrin Low Dose] 81 mg PO DAILY 02/21/24 02/21/24 History Atorvastatin [Lipitor] 20 mg PO HS 02/21/24 02/21/24 History Cariprazine HCl [Vraylar] 3 mg PO DAILY 02/21/24 02/21/24 History Cyanocobalamin (Vitamin B-12) 1,000 mcg PO DAILY 02/21/24 02/21/24 History [Vitamin B-12] Famotidine 40 mg PO HS 02/21/24 02/21/24 History Folic Acid 1 mg PO DAILY 02/21/24 02/21/24 History Insulin Degludec [Tresiba 20 units SQ DAILY 02/21/24 02/21/24 History Flextouch U-200 Pen] Insulin Glargine,Hum.rec.anlog 1 dose SQ DIRECTED 02/21/24 02/21/24 History [Lantus Solostar Pen] Ivabradine HCl [Corlanor] 5 mg PO BID 02/21/24 02/21/24 History Naproxen [EC-Naprosyn] 500 mg PO BID PRN 02/21/24 02/21/24 History Prazosin [Minipress] 1 mg PO HS 02/21/24 02/21/24 History hydrALAZINE HCL [Apresoline] 25 mg PO TID 02/21/24 02/21/24 History metFORMIN HCL ER [Glucophage XR] 500 mg PO BID-W/MEALS 02/21/24 02/21/24 History Allergies Allergy/AdvReac Type Severity Reaction Status Date / Time adhesive tape Allergy Rash/Hives Verified 02/21/24 19:04 cefaclor [From Ceclor] Allergy Rash/Hives Verified 02/21/24 19:04 dapagliflozin [From Farxiga] Allergy yeast Verified 02/21/24 19:04 infections Iodinated Contrast Media Allergy Rash/Hives,throat Verified 02/21/24 19:04 [Iodinated Contrast Media - swelling IV Dye] propoxyphene napsylate Allergy Rash/Hives Verified 02/21/24 19:04 [From Darvocet-N 100] Sulfa (Sulfonamide Allergy Dyspnea, Verified 02/21/24 19:04 Antibiotics) rapid heart rate sulfamethoxazole Allergy Rapid Verified 02/21/24 19:04 [From Bactrim] Heart Rate, Shortness of breath trimethoprim [From Bactrim] Allergy Rapid Verified 02/21/24 19:04 Heart Rate, Shortness of breath Physical Exam Vitals: Vital Signs Temp Pulse Pulse Resp BP Pulse Ox 02/21/24 19:42 70 02/21/24 19:39 88 18 121/80 95 02/21/24 17:02 70 16 120/72 99 02/21/24 16:02 16 130/82 98 02/21/24 16:01 98 F 87 20 136/87 99 Intake and Output 02/21/24 02/21/24 02/22/24 14:59 22:59 06:59 Other: Weight 92.986 kg Results CBC & Chem 7: 02/21/24 14:15 02/21/24 14:15 Labs: Abnormal Lab Results - Last 24 Hours (Table) 02/21/24 02/21/24 Range/Units 14:15 14:15 WBC 13.2 H (3.8-10.6) k/uL MCV 100.2 H (80.0-100.0) fL Neutrophils # 10.2 H (1.3-7.7) k/uL Glucose 144 H (74-99) mg/dL Calcium 10.3 H (8.4-10.2) mg/dL Assessment and Plan Assessment: 53-year-old male with hypertension diabetes mellitus coming in complaining of chest pain requesting evaluation I discussed the case with ED doctor and accepted the admission for atypical chest pain to rule out acute coronary syndrome with anticipated length of stay less than 2 midnights Atypical chest pain Continue with aspirin and statin EKG no acute ST changes Troponins negative Continue to trend troponins Cardiology consult Nitro as needed for pain Morphine 2 mg IV push every 3 hours as needed for pain IV fluid hydration normal saline 100 cc/h Hypertension controlled continue home medications Diabetes mellitus Continue with insulin sliding scale Blood work overall unremarkable White count 13.2 however afebrile, no identifiable source of infection Hemoglobin 17.4 unremarkable BUN 14 creatinine 1.17 Sodium 138 potassium 4.3 Calcium slightly elevated at 10.3 consider repeat BMP in the morning for reevaluation Chest x-ray showed no acute cardiopulmonary process Full code DVT prophylaxis Lovenox subcu daily 40 mg
[2024-02-22 04:47] LABS: Glucose,Whole Blood 134 mg/dL (70-110)
[2024-02-22] MEDS: LEVOTHYROXINE 88 MCG TAB PO SCH (06:28)
[2024-02-22] MEDS ORDERED: INSULIN ASPART (NovoLOG) 100 UNIT/ML VIAL SQ SCH (07:30)
[2024-02-22] MEDS ORDERED: NON FORMULARY DRUG (Ivabradine Hcl [Corlanor] 5 MG Tablet) PO SCH (09:00)
[2024-02-22] MEDS ORDERED: ASPIRIN 325 MG TAB PO SCH (09:00)
--- NOTE | 2024-02-22 10:33 | P.CRDCN ---
History of Present Illness History of present illness: HISTORY OF PRESENT ILLNESS: This is a 53-year-old male with a past medical history significant for hypothyroidism, hypertension, and hyperlipidemia. Patient follows in the office with Dr. Harper. We have been asked to see the patient in consultation for chest pain. Patient examined at the bedside in the emergency room. Patient states he started having chest discomfort on Wednesday on the left side of his chest. He states it felt like a sharp stabbing sensation. He states that the pain went away but then came back on Wednesday. He states the pain would come and go throughout the day. He does report having a cold last week and reports having a runny nose and a frequent cough. Patient's vital signs are stable. DIAGNOSTICS: - EKG reveals sinus mechanism with no signs of acute ischemia. - Chest xray negative for acute process. - Laboratory data: WBC 13.2. Hemoglobin 17.4. Platelet count 364. Sodium 138. Potassium 4.3. BUN 14. Creatinine 1.17. Troponin negative x 3 - Current home cardiac medications include metoprolol tartrate 50 mg twice a day, atorvastatin 20 mg at night, hydrochlorothiazide 12.5 mg daily, hydralazine 25 mg 3 times a day, Ivabradine 5 mg twice a day, Jardiance 10 mg daily, aspirin 81 mg daily. - Most recent echocardiogram obtained in November 2022 revealing ejection fraction 55%, mild MR and mild TR -Patient underwent Lexiscan stress test on January 10, 2024 which was negative for ischemia REVIEW OF SYSTEMS: At the time of my exam: CONSTITUTIONAL: Denies fever or chills. HEENT: Denies blurred vision, vision changes, or eye pain. Denies hemoptysis CARDIOVASCULAR: Denies chest pain. Denies orthopnea. Denies PND. Denies palpitations RESPIRATORY: Denies shortness of breath. GASTROINTESTINAL: Denies abdominal pain. Denies nausea or vomiting. HEMATOLOGIC: Denies bleeding disorders. GENITOURINARY: Denies any blood in urine. SKIN: Denies pruitis. Denies rash. PHYSICAL EXAM: VITAL SIGNS: Reviewed. GENERAL: Well-developed in no acute distress. HEENT: Head is normocephalic. Pupils are equal, round. Sclerae anicteric. Mucous membranes of the mouth are moist. Neck supple. No JVD or thyromegaly LUNGS: Respirations even and unlabored. Lungs essentially clear to auscultation bilaterally. HEART: Regular rate and rhythm. S1 and S2 heard. ABDOMEN: Soft. Nondistended. Nontender. EXTREMITIES: Normal range of motion. No clubbing or cyanosis. Peripheral pulses intact. No lower extremity edema NEUROLOGIC: Awake and alert. Oriented x 3. ASSESSMENT: Chest pain, troponin negative x 3 with negative Lexiscan stress test performed on 01/10/2024 Recent viral infection Hypertension Hyperlipidemia Hypothyroidism Diabetes PLAN: An acute coronary event has been ruled out Resume home cardiac medications Patient is stable for discharge home today from a cardiac standpoint He is to follow-up postdischarge with Dr. Harper Nurse practitioner note has been reviewed by physician. Signing provider agrees with the documented findings, assessment, and plan of care documented by [employer] CLERK as a scribe. Past Medical History Past Medical History: Asthma, Coronary Artery Disease (CAD), Chest Pain / Angina, Heart Failure, CVA/TIA, Diabetes Mellitus, Eye Disorder, GERD/Reflux, Hyperlipidemia, Hypertension, Liver Disease, Musculoskeletal Disorder, Prostate Disorder, Renal Disease, Skin Disorder, Sleep Apnea/CPAP/BIPAP, Thyroid Disorder, Vascular Disorder Additional Past Medical History / Comment(s): TMJ, sinus problems, eczema, kidney stones, diverticulitis, back pain w/ DDD, physical limitations, numbness and tingling in bilateral hands, hx skin cancer, hyperflexia, slight cataracts, hx CVA 11/2018-no residual effects, hx of elevated WBC's-sees Dr. Luna-states just normal for him, PVD, Kidney Disease Stage 3, fatty liver, uses CPAP., stroke, , fibromyalgia, arthritis, nasal polyps, bronchitis, snoring, pneumonia History of Any Multi-Drug Resistant Organisms: None Reported Past Surgical History: Adenoidectomy, Hernia Repair, Orthopedic Surgery, Tonsillectomy Additional Past Surgical History / Comment(s): Urolift, wart on uvula removed, pain clinic procedures, Lt. knee arthroscopy X2, varicose vein procedure, bilat. CTR, Lt. wrist surgery, Bilat. elbow surgery, cervical fusion Past Anesthesia/Blood Transfusion Reactions: No Reported Reaction Additional Past Anesthesia/Blood Transfusion Reaction / Comment(s): Hard to wake up. Past Psychological History: Anxiety, Depression Smoking Status: Former smoker Past Alcohol Use History: None Reported Past Drug Use History: None Reported - Past Family History Mother Family Medical History: Cancer, Deep Vein Thrombosis (DVT) Father Family Medical History: Cancer, Chest Pain / Angina, Congestive Heart Failure (C HF) Additional Family Medical History / Comment(s): BRONCHITIS, PNEUMONIA, LUNG, SLEEP APNEA, CANCER, INSOMNIA, ULCERS, DIABETES, ANEMIA, RESTLESS LEGS Medications and Allergies Home Medications Medication Instructions Recorded Confirmed Type DULoxetine HCL [Cymbalta] 60 mg PO HS 12/31/14 02/21/24 History Levothyroxine Sodium [Synthroid] 88 mcg PO DAILY 11/17/18 02/21/24 History Testosterone Cypionate 200 mg IM Q14D 11/17/18 02/21/24 History [Depo-Testosterone] Dicyclomine HCl 20 mg PO QID PRN 01/06/21 02/21/24 History Metoprolol Tartrate [Lopressor] 50 mg PO BID 02/04/21 02/21/24 History allopurinoL [Zyloprim] 200 mg PO DAILY 06/02/21 02/21/24 History Ferrous Sulfate [Feosol] 325 mg PO DAILY 11/13/21 02/21/24 History Empagliflozin [Jardiance] 10 mg PO DAILY 11/25/22 02/21/24 History Pioglitazone [Actos] 15 mg PO DAILY 11/25/22 02/21/24 History Pantoprazole [Protonix] 40 mg PO BID 01/21/23 02/21/24 History hydroCHLOROthiazide [Hydrodiuril] 12.5 mg PO DAILY 01/21/23 02/21/24 History Semaglutide [Ozempic] 2 mg SQ WE 06/16/23 02/21/24 History Multivitamins, Thera [Multivitamin 1 tab PO DAILY 11/12/23 02/21/24 History (formulary)] Acetaminophen-Codeine 300-30mg 1 tab PO TID PRN 30 Days #90 tablet 02/09/24 02/21/24 Rx [Tylenol w/codeine #3] Baclofen [Lioresal] 10 mg PO TID 30 Days #90 tablet 02/09/24 02/21/24 Rx Pregabalin [Lyrica] 100 mg PO TID 30 Days #90 cap 02/09/24 02/21/24 Rx Aspirin EC [Ecotrin Low Dose] 81 mg PO DAILY 02/21/24 02/21/24 History Atorvastatin [Lipitor] 20 mg PO HS 02/21/24 02/21/24 History Cariprazine HCl [Vraylar] 3 mg PO DAILY 02/21/24 02/21/24 History Cyanocobalamin (Vitamin B-12) 1,000 mcg PO DAILY 02/21/24 02/21/24 History [Vitamin B-12] Famotidine 40 mg PO HS 02/21/24 02/21/24 History Folic Acid 1 mg PO DAILY 02/21/24 02/21/24 History Insulin Degludec [Tresiba 20 units SQ DAILY 02/21/24 02/21/24 History Flextouch U-200 Pen] Insulin Glargine,Hum.rec.anlog 1 dose SQ DIRECTED 02/21/24 02/21/24 History [Lantus Solostar Pen] Ivabradine HCl [Corlanor] 5 mg PO BID 02/21/24 02/21/24 History Naproxen [EC-Naprosyn] 500 mg PO BID PRN 02/21/24 02/21/24 History Prazosin [Minipress] 1 mg PO HS 02/21/24 02/21/24 History hydrALAZINE HCL [Apresoline] 25 mg PO TID 02/21/24 02/21/24 History metFORMIN HCL ER [Glucophage XR] 500 mg PO BID-W/MEALS 02/21/24 02/21/24 History Allergies Allergy/AdvReac Type Severity Reaction Status Date / Time adhesive tape Allergy Rash/Hives Verified 02/21/24 19:04 cefaclor [From Ceclor] Allergy Rash/Hives Verified 02/21/24 19:04 dapagliflozin [From Farxiga] Allergy yeast Verified 02/21/24 19:04 infections Iodinated Contrast Media Allergy Rash/Hives,throat Verified 02/21/24 19:04 [Iodinated Contrast Media - swelling IV Dye] propoxyphene napsylate Allergy Rash/Hives Verified 02/21/24 19:04 [From Darvocet-N 100] Sulfa (Sulfonamide Allergy Dyspnea, Verified 02/21/24 19:04 Antibiotics) rapid heart rate sulfamethoxazole Allergy Rapid Verified 02/21/24 19:04 [From Bactrim] Heart Rate, Shortness of breath trimethoprim [From Bactrim] Allergy Rapid Verified 02/21/24 19:04 Heart Rate, Shortness of breath Physical Exam Vitals: Vital Signs Temp Pulse Pulse Resp BP Pulse Ox 02/22/24 06:00 88 16 122/90 93 L 02/22/24 01:58 84 16 105/78 96 02/21/24 19:42 70 02/21/24 19:39 88 18 121/80 95 02/21/24 17:02 70 16 120/72 99 02/21/24 16:02 16 130/82 98 02/21/24 16:01 98 F 87 20 136/87 99 Intake and Output 02/21/24 02/22/24 02/22/24 22:59 06:59 14:59 Other: Weight 92.986 kg Results 02/21/24 14:15 02/21/24 14:15 Cardiac Enzymes 02/21/24 02/21/24 02/21/24 Range/Units 14:15 14:15 20:13 AST 39 (17-59) U/L Troponin I <0.012 <0.012 (0.000-0.034) ng/mL 02/21/24 Range/Units 22:45 AST (17-59) U/L Troponin I <0.012 (0.000-0.034) ng/mL Coagulation 02/21/24 Range/Units 14:15 PT 10.3 (10.0-12.5) sec APTT 25.3 (22.0-30.0) sec CBC 02/21/24 Range/Units 14:15 WBC 13.2 H (3.8-10.6) k/uL RBC 5.06 (4.30-5.90) m/uL Hgb 17.4 (13.0-17.5) gm/dL Hct 50.7 (39.0-53.0) % Plt Count 364 (150-450) k/uL Comprehensive Metabolic Panel 02/21/24 Range/Units 14:15 Sodium 138 (137-145) mmol/L Potassium 4.3 (3.5-5.1) mmol/L Chloride 99 (98-107) mmol/L Carbon Dioxide 29 (22-30) mmol/L BUN 14 (9-20) mg/dL Creatinine 1.17 (0.66-1.25) mg/dL Glucose 144 H (74-99) mg/dL Calcium 10.3 H (8.4-10.2) mg/dL AST 39 (17-59) U/L ALT 48 (4-49) U/L Alkaline Phosphatase 84 (38-126) U/L Total Protein 7.4 (6.3-8.2) g/dL Albumin 4.7 (3.5-5.0) g/dL Current Medications Generic Name Dose Route Start Last Admin Trade Name Freq PRN Reason Stop Dose Admin Alprazolam 0.5 mg 02/22/24 02:17 Alprazolam 0.5 Mg Tab PO TID PRN Anxiety Atorvastatin Calcium 80 mg 02/22/24 09:00 Atorvastatin 80 Mg Tab PO DAILY [facility] Dextrose/Water 25 ml 02/22/24 02:07 Dextrose 50% Syringe 50 Ml IVP PER PROTOCOL PRN Hypoglycemia Protocol Dextrose/Water 50 ml 02/22/24 02:07 Dextrose 50% Syringe 50 Ml IVP PER PROTOCOL PRN Hypoglycemia Protocol Enoxaparin Sodium 40 mg 02/22/24 09:00 Enoxaparin 40 Mg/0.4 Ml Syringe SQ DAILY [facility] Hydralazine HCl 25 mg 02/22/24 09:00 Hydralazine Hcl 25 Mg Tab PO TID [facility] Hydrochlorothiazide 12.5 mg 02/22/24 09:00 Hydrochlorothiazide 12.5 Mg Cap PO DAILY [facility] Insulin Aspart 0 unit 02/22/24 07:30 Insulin Aspart (Novolog) 100 Unit/Ml Vial SQ ACHS [facility] Protocol Levothyroxine Sodium 88 mcg 02/22/24 06:30 02/22/24 06:28 Levothyroxine 88 Mcg Tab PO 88 mcg DAILY@0630 [facility] Administration Metoprolol Tartrate 50 mg 02/22/24 09:00 Metoprolol Tartrate 50 Mg Tab PO BID [facility] Morphine Sulfate 4 mg 02/21/24 20:00 02/21/24 20:15 Morphine Sulfate 4 Mg/Ml Syringe IV 4 mg Q4HR PRN Administration Chest Pain Nitroglycerin 0.4 mg 02/21/24 20:00 Nitroglycerin Sl Tabs 0.4 Mg Tab SUBLINGUAL Q5M PRN Chest Pain Non-Formulary Medication 5 mg 02/22/24 09:00 Ivabradine Hcl [Corlanor] PO BID [facility] Pantoprazole Sodium 40 mg 02/22/24 09:00 Pantoprazole 40 Mg Tablet PO BID [facility] Pregabalin 100 mg 02/22/24 09:00 Pregabalin 100 Mg Cap PO TID [facility] Intake and Output 02/21/24 02/22/24 02/22/24 22:59 06:59 14:59 Other: Weight 92.986 kg 02/21/24 14:15 02/21/24 14:15
--- NOTE | 2024-02-22 10:50 | P.DS ---
Providers Date of admission: 02/21/24 20:02 Expected date of discharge: 02/22/24 Attending physician: Nehemias Fatima MD Consults: 02/21/24 20:00 Consult Physician Urgent Consulting Provider: Flash Gonzalez Consult Reason/Comments: cp Do you want consulting provider notified?: Yes Primary care physician: Tristin Phillips Hospital Course: Discharge Diagnosis: Chest pain, acute coronary syndrome ruled out suspect pleurisy related to recent upper respiratory tract infection. Mild hypercalcemia Hypertension Dyslipidemia Hypothyroidism Chronic back pain with known degenerative disc disease Fibromyalgia Hospital Course: Patient is a 53-year-old male with a history of congestive heart failure, coronary artery disease, diabetes, hypertension, dyslipidemia, fibromyalgia, and multiple other comorbid conditions who presented to the emergency department with complaints of chest pain. In the ER he underwent extensive evaluation. On arrival his vital signs were within normal limits. Laboratory analysis was remarkable for a white blood cell count of 13.2 (patient has known elevated white blood cell count and follows with Dr. Luna). Initial troponin was negative. He was placed in observation to rule out acute coronary syndrome. His troponins remained negative. He was seen by cardiology who verified that he had undergone a Lexiscan stress test on 01/10/2024 in the office which was negative for ischemia. Terminate him stable for discharge home. I encouraged him to follow-up with Dr. Phillips. I have agreed to refill his naproxen. The patient has had mild hypercalcemia on several different lab draws and this should be evaluated further in the outpatient setting has not already been done. Follow-up: Dr. Harper in 1 week, Dr. Phillips in 1 to 2 days, Naproxen refilled as patient reports he is out of this chronic medication. Patient seen and examined at bedside. Continues to have some left-sided chest pain which has been constant in nature not worse with deep breathing or exertion. He reports that he had a cough last week that was quite severe and he is now having some posterior neck pain and this left-sided chest pain. He also ran out of his naproxen which she typically takes twice daily. Vital signs reviewed and stable. General: Nontoxic, no distress, appears at stated age Cardiovascular: S1S2 reg, no murmur, positive posterior tibial pulse bilateral, increased pressure over left chest wall with palpation Lungs: CTA bilateral, no rhonchi, no rales, no accessory muscle use Abdominal: Soft, nontender to palpation, no guarding, no appreciable organomegaly Ext: No gross muscle atrophy, no edema b/l lower extremities, no contractures Neuro: CN II-XI grossly intact, no focal neuro deficits Psych: Alert, oriented, appropriate affect A total of 25 minutes of time were spent preparing this complex discharge summary. Patient was discharged on. This dictation was prepared using [employer] voice recognition software. Though every attempt is made to correct errors during dictation some may still exist. Patient Condition at Discharge: Fair Plan - Discharge Summary New Discharge Prescriptions: No Action RX: DULoxetine HCL [Cymbalta] 60 mg PO HS RX: Levothyroxine Sodium [Synthroid] 88 mcg PO DAILY RX: Testosterone Cypionate [Depo-Testosterone] 200 mg IM Q14D RX: Dicyclomine HCl 20 mg PO QID PRN PRN Reason: Gi Upset allopurinoL [Zyloprim] 200 mg PO DAILY Ferrous Sulfate [Feosol] 325 mg PO DAILY Pioglitazone [Actos] 15 mg PO DAILY Empagliflozin [Jardiance] 10 mg PO DAILY hydroCHLOROthiazide [Hydrodiuril] 12.5 mg PO DAILY Semaglutide [Ozempic] 2 mg SQ WE RX: Baclofen [Lioresal] 10 mg PO TID 30 Days #90 tablet RX: Pregabalin [Lyrica] 100 mg PO TID 30 Days #90 cap Aspirin EC [Ecotrin Low Dose] 81 mg PO DAILY Atorvastatin [Lipitor] 20 mg PO HS Cyanocobalamin (Vitamin B-12) [Vitamin B-12] 1,000 mcg PO DAILY RX: Folic Acid 1 mg PO DAILY hydrALAZINE HCL [Apresoline] 25 mg PO TID Insulin Degludec [Tresiba Flextouch U-200 Pen] 20 units SQ DAILY Ivabradine HCl [Corlanor] 5 mg PO BID Prazosin [Minipress] 1 mg PO HS RX: Metoprolol Tartrate [Lopressor] 50 mg PO BID Pantoprazole [Protonix] 40 mg PO BID Multivitamins, Thera [Multivitamin (formulary)] 1 tab PO DAILY RX: Acetaminophen-Codeine 300-30mg [Tylenol w/codeine #3] 1 tab PO TID PRN 30 Days #90 tablet PRN Reason: Pain Cariprazine HCl [Vraylar] 3 mg PO DAILY RX: Famotidine 40 mg PO HS Insulin Glargine,Hum.rec.anlog [Lantus Solostar Pen] 1 dose SQ DIRECTED metFORMIN HCL ER [Glucophage XR] 500 mg PO BID-W/MEALS Naproxen [EC-Naprosyn] 500 mg PO BID PRN PRN Reason: Pain Discharge Medication List RX: DULoxetine HCL [Cymbalta] 60 mg PO HS 12/31/14 [History] RX: Levothyroxine Sodium [Synthroid] 88 mcg PO DAILY 11/17/18 [History] RX: Testosterone Cypionate [Depo-Testosterone] 200 mg IM Q14D 11/17/18 [History] RX: Dicyclomine HCl 20 mg PO QID PRN 01/06/21 [History] RX: Metoprolol Tartrate [Lopressor] 50 mg PO BID 02/04/21 [History] allopurinoL [Zyloprim] 200 mg PO DAILY 06/02/21 [History] Ferrous Sulfate [Feosol] 325 mg PO DAILY 11/13/21 [History] Empagliflozin [Jardiance] 10 mg PO DAILY 11/25/22 [History] Pioglitazone [Actos] 15 mg PO DAILY 11/25/22 [History] Pantoprazole [Protonix] 40 mg PO BID 01/21/23 [History] hydroCHLOROthiazide [Hydrodiuril] 12.5 mg PO DAILY 01/21/23 [History] Semaglutide [Ozempic] 2 mg SQ WE 06/16/23 [History] Multivitamins, Thera [Multivitamin (formulary)] 1 tab PO DAILY 11/12/23 [History] RX: Acetaminophen-Codeine 300-30mg [Tylenol w/codeine #3] 1 tab PO TID PRN 30 Days #90 tablet 02/09/24 [Rx] RX: Baclofen [Lioresal] 10 mg PO TID 30 Days #90 tablet 02/09/24 [Rx] RX: Pregabalin [Lyrica] 100 mg PO TID 30 Days #90 cap 02/09/24 [Rx] Aspirin EC [Ecotrin Low Dose] 81 mg PO DAILY 02/21/24 [History] Atorvastatin [Lipitor] 20 mg PO HS 02/21/24 [History] Cariprazine HCl [Vraylar] 3 mg PO DAILY 02/21/24 [History] Cyanocobalamin (Vitamin B-12) [Vitamin B-12] 1,000 mcg PO DAILY 02/21/24 [History] Insulin Degludec [Tresiba Flextouch U-200 Pen] 20 units SQ DAILY 02/21/24 [History] Insulin Glargine,Hum.rec.anlog [Lantus Solostar Pen] 1 dose SQ DIRECTED 02/21/24 [History] Ivabradine HCl [Corlanor] 5 mg PO BID 02/21/24 [History] Naproxen [EC-Naprosyn] 500 mg PO BID PRN 02/21/24 [History] Prazosin [Minipress] 1 mg PO HS 02/21/24 [History] RX: Famotidine 40 mg PO HS 02/21/24 [History] RX: Folic Acid 1 mg PO DAILY 02/21/24 [History] hydrALAZINE HCL [Apresoline] 25 mg PO TID 02/21/24 [History] metFORMIN HCL ER [Glucophage XR] 500 mg PO BID-W/MEALS 02/21/24 [History] Follow up Appointment(s)/Referral(s): Tristin Phillips DO [Primary Care Provider] - 1-2 days Patient Instructions/Handouts: Chest Pain (ED)
[2024-02-22] MEDS: ALPRAZolam 0.5 MG TAB PO PRN (11:07)
[2024-02-22] MEDS: ATORVASTATIN 80 MG TAB PO SCH (11:08)
[2024-02-22] MEDS: hydrALAZINE HCL 25 MG TAB PO SCH (11:09)
[2024-02-22] MEDS: METOPROLOL TARTRATE 50 MG TAB PO SCH (11:09)
[2024-02-22] MEDS: PANTOPRAZOLE 40 MG TABLET PO SCH (11:09)
[2024-02-22] MEDS: PREGABALIN 100 MG CAP PO SCH (11:09)
[2024-02-22] MEDS: ENOXAPARIN 40 MG/0.4 ML SYRINGE SQ SCH (11:09)
[2024-02-22] MEDS: hydroCHLOROthiazide 12.5 MG CAP PO SCH (11:11)
[2024-02-22 11:14] VITALS: PULSE 80
[2024-02-22] MEDS: NAPROXEN 250 MG TAB PO STA (11:17)
[2024-02-22 11:57] LABS: BUN/Creat Ratio 12.42 Ratio (12.00-20.00); Blood Urea Nitrogen 14.9 mg/dL (9.0-27.0); Calcium 10.3 mg/dL (8.7-10.3); Carbon Dioxide 26.1 mmol/L (21.6-31.8); Chloride 98 mmol/L (96-109); Chol/HDL Ratio 4.51 Ratio; Glucose 137 mg/dL (70-110); LDL Cholesterol,Calculated 50.5 mg/dL (0.0-131.0); Potassium 4.2 mmol/L (3.5-5.5); Sodium 139 mmol/L (135-145)
[2024-02-22 12:00] VITALS: BP 122/80; RESP 16
== END 2024-02-22 11:28 | disposition home or self-care (01) ==
LOC: EC 15:56 → 6NMEDSUR 20:02
PROVIDERS: ADMIT Internal Medicine; ATTEND Internal Medicine
DX: R07.89 Other chest pain (principal); I25.10 Atherosclerotic heart disease of native coronary artery without angina pectoris; I13.10 Hypertensive heart and chronic kidney disease without heart failure, with stage 1 through stage 4 chronic kidney disease, or unspecified chronic kidney disease; I50.9 Heart failure, unspecified; N18.30 Chronic kidney disease, stage 3 unspecified; E11.22 Type 2 diabetes mellitus with diabetic chronic kidney disease; K21.9 Gastro-esophageal reflux disease without esophagitis; E78.5 Hyperlipidemia, unspecified; G47.30 Sleep apnea, unspecified; F32.A Depression, unspecified; F41.9 Anxiety disorder, unspecified; E83.52 Hypercalcemia; G89.29 Other chronic pain; M54.9 Dorsalgia, unspecified; M79.7 Fibromyalgia; E03.9 Hypothyroidism, unspecified; Z85.828 Personal history of other malignant neoplasm of skin; Z86.73 Personal history of transient ischemic attack (TIA), and cerebral infarction without residual deficits; Z87.891 Personal history of nicotine dependence; Z79.890 Hormone replacement therapy; Z79.899 Other long term (current) drug therapy; Z79.84 Long term (current) use of oral hypoglycemic drugs; Z79.82 Long term (current) use of aspirin; Z79.4 Long term (current) use of insulin; Z88.1 Allergy status to other antibiotic agents; Z88.2 Allergy status to sulfonamides
CPT/HCPCS: 96374; 99291; 36415; 93005; 80061; 80053; 80048; 83735; 84484; 85025; 85610; 85730; 71046; G0378 ×2; J2270

== ENCOUNTER 2024-02-27 19:53 | Outpatient (CLI) | payer MEDICARE ==
--- NOTE | 2024-03-02 11:06 | P.PCN ---
Description of Procedure: CLINICAL: Titration with positive air pressure has been done for correction of respiratory abnormalities during sleep. DESCRIPTION OF PROCEDURE: The standard montage for clinical polysomnography included the electroencephalogram, the electrocardiogram, the mentalis surface electromyography and Lead II cardiography. The respiratory battery consisted of measurements of nasal /buccal air flow, pressure transducer measurements from the nose, thoracic and /or abdominal effort and intercostal surface electromyography. Video monitoring has been done to check for any parasomnia events. Nocturnal oxyhemoglobin saturations were obtained by finger oximetry. Step-trimble titration with positive airway pressure was utilized to control respiratory events. Raw data of sleep recording has been reviewed and is adequate. RESULTS: Sleep efficiency was normal 91.8%. Latency to sleep onset was normal at 14.0 minutes.]. Sleep architecture showed stage N1 was short 2.1%, Delta sleep in high range 33.0%, REM sleep was slightly decreased 17.3%. Heart rate was minimum 68 BPM, maximum 75 BPM, average 71 BPM. EMG showed 2.1 periodic limb movements per hour with 0 micriarousals per hour. PAP titration have been done with CPAP up to the pressure 11 cm H2O. The best results were at the pressure 10 cm H2O. Apnea hypopnea index reduced to 0. IMPRESSION: 1. Obstructive sleep apnea hypopnea syndrome on full controle with PAP treatment. 2. No significant periodic limb movements have been documented. Please see other impressions from consultation. PLAN: 1. The patient will have treatment with positive air pressure equipment with the level of pressure AutoPAP 5-11 cm H2O and should use it every night for the whole night. 2. Watching and losing weight. 3. Sleep hygiene with regular time in bed for at least 8 hours. 4. No driving if feeling any sleepiness. 5. I will see the patient for follow up visit to explain the results of the test, recommendations, check compliance with treatment and make any necessary adjustment related to mask fitting, pressure and humidification. Thank you very much for allowing me to participate in the management of your patient. Sincerely, Arley Salazar MD, PhD, FAASM Diplomat of [place] [employer] Sleep Medicine Board of [place] [employer] Mail Delivery Supervisor of [facility] [place]
== END 2024-02-28 05:45 | disposition home or self-care (01) ==
LOC: 3 N SLEEP 19:53
PROVIDERS: ATTEND Internal Medicine
DX: G47.33 Obstructive sleep apnea (adult) (pediatric) (principal); F51.3 Sleepwalking [somnambulism]; F17.200 Nicotine dependence, unspecified, uncomplicated; Z91.048 Other nonmedicinal substance allergy status; Z88.1 Allergy status to other antibiotic agents; Z88.8 Allergy status to other drugs, medicaments and biological substances; Z91.041 Radiographic dye allergy status; Z88.5 Allergy status to narcotic agent; Z88.2 Allergy status to sulfonamides
CPT/HCPCS: 95811

== ENCOUNTER → 2024-03-17 | Outpatient (CLI) | payer MEDICARE ==
--- NOTE | 2024-03-17 11:37 | CT ---
There is a EXAMINATION TYPE: CT lumbar spine wo con DATE OF EXAM: 03/17/2024 10:41 AM COMPARISON: None HISTORY: Spondylosis w/o myelopathy or radiculopathy. Prior injury, c/o back pain. CT DLP: 940 mGycm Automated exposure control for dose reduction was used. Unenhanced CT of the lumbar spine was performed. Bone and soft tissue window settings are submitted as well as coronal and sagittal reconstructions. There appears to be transitional vertebral segment w ith partial sacralization of L5 suspected. Prior to any scheduled surgical intervention radiographic correlation is advised. L1-L2: Normal disc space height. No disc herniation protrusion or central stenosis. No facet joint arthropathy. No evidence for foraminal encroachment. L2-L3: Normal disc space height. No disc herniation protrusion or central stenosis. No facet joint arthropathy. No evidence for foraminal encroachment. L3-L4: Mild degenerative disc space narrowing. Circumferential disc bulge is posteriorly with effacem ent of ventral thecal sac and mild central stenosis. Mild right greater than left foraminal protrusio n. No sade disc herniation seen. L4-L5: Hotm-[id number]-tifrapoe degenerative disc space narrowing. Posterior disc bulge with effacement of ve ntral thecal sac and bilateral lateral recess stenosis. Central stenosis. Left-sided foraminal encroa chment identified. L5-S1: Normal disc space height. No disc herniation protrusion or central stenosis. No facet joint arthropathy. No evidence for foraminal encroachment. IMPRESSION: 1. Transitional vertebral segment as noted above. 2. Degenerative disc disease at L3-4 and L4-5 with mild central stenosis at L3-4 and bilateral latera l recess stenosis at L4-5.
== END | disposition home or self-care (01) ==
LOC: RADCTMAIN 10:16
PROVIDERS: ATTEND Orthopaedic Surgery
DX: M51.16 Intervertebral disc disorders with radiculopathy, lumbar region (principal); M47.24 Other spondylosis with radiculopathy, thoracic region; M48.061 Spinal stenosis, lumbar region without neurogenic claudication
CPT/HCPCS: 72131

== ENCOUNTER → 2024-03-30 | Outpatient (CLI) | payer MEDICARE, OTHER ==
--- NOTE | 2024-03-31 06:09 | MR ---
EXAMINATION TYPE: MR hip RT wo con DATE OF EXAM: 03/30/2024 COMPARISON: Outside right hip x-ray March 22, 2024 HISTORY: Right hip pain. Standard multiplanar, multisequence MRI departmental protocol Multiplanar, multisequence images of the pelvis focusing on right hip were acquired without contrast. FINDINGS: Symmetric small to moderate-sized hip joint effusions are seen. Mild narrowing and mild to moderate acetabular spurring is present bilaterally. Femoral head shapes are maintained bilaterally. No suspicious increased T2 signal or osseous edema. No serpiginous diminished T1 signal to suggest av ascular necrosis. Muscle bulk is maintained bilaterally. No groin hernia or adenopathy is seen bilate rally. Urinary bladder appears within normal limits. No bowel dilatation is seen. No free fluid in the pelvi s is noted. IMPRESSION: Mild to borderline moderate degenerative changes of right hip as detailed above.
== END | disposition home or self-care (01) ==
LOC: RADMRIMAIN 19:02
PROVIDERS: ATTEND Orthopaedic Surgery
DX: M16.11 Unilateral primary osteoarthritis, right hip (principal)

== ENCOUNTER → 2024-04-05 | Outpatient (CLI) | payer MEDICARE ==
[2024-04-05 13:45] VITALS: BP 134/82; PULSE 110; RESP 16
--- NOTE | 2024-04-05 15:20 | P.PAINPG ---
PQRS Measure Charge Sheet Comment: A 53 yr old male with a history of severe and chronic R hip and LBP x 1 yr secondary to R hip DJD, lumbar DDD and spondylosis with facet arthropathy without myelopathy presents today for medication refills and evaluation s/p R intra articular hip injection. Pt states he experienced 50 % pain relief x 6 wks s/p procedure. Pain level is provoked at 8 /10 in intensity, constant, localized in the lumbar spine and R hip, predominantly axial, burning in character without shooting pain. Pain is provoked by bending, lifting in excess of 10 lbs. Pain is alleviated with medications, injections, ice/ heat, PT x 8 wks in Nov 2022, physician guided home stretching regimen daily since Nov 2022, reclining and rest. Oswestry axial pain score of 26. Pt states he has appts w Dr Mas for his R hip and Dr Shelton for his lumbar spine and was told he will need R hip surgery. Interventional pain procedures completed include LESIs, BL RFA L3-L5 (Aug 2022), R hip injection x1 (Jan 2024) Patient is currently on Tyl #3, Baclofen, Lyrica, Mobic Patient denies any side effects of the medication(s), denies excessive drowsiness or sleepiness, denies suicidal ideation and reports that the current pain medication is helping to control the pain and improve activities of daily living. Patient denies any motor or sensory deficits. Patient denies any fever or night sweats, denies any change in the bowel movements or urination. Physical Examination: -Constitutional: Cooperative. Not in acute distress . - Neurologic: Cranial nerve II to XII intact. No focal neurological deficits. - Psychatric: Alert & oriented x 3. Matching mood & appropriate affect. Judgment and insight intact. - Musculoskeletal: Cervical spine: Muscle bulk/ tone/ strength in the bilateral upper extremities normal Vertebral body tenderness to palpation over Spurling test positive Distraction test positive Facet loading test positive TTP Thoracic spine Muscle bulk / tone/ strength in the bilateral paraspinal muscles normal Vertebral body tender to palpation over Facet loading test positive TTP Lumbar spine: +R Hip Abduction Motor bulk/ tone/ strength lower extremities , thigh and legs : 5/5 Deep tendon reflexes : Normal Knee Jerk. Normal Ankle Jerk . Vertebral body tenderness to palpation over L4 Lumbar Facet Loading Test positive Straight Leg Raise: positive at 30 degrees right side> left side Gaenslen's Test positive Sacral spine : Severe tenderness over the Sacroiliac joint: right side / left side Range of motion: Flexion of the lumbar spine <60 degrees Range of motion: Extension of the lumbar spine <20 degrees Gaenslen's Test positive right side / left side Abebe test: positive right side / left side Thigh Thrust Test positive right side / left side Sacral Thrust Test positive right side / left side Imaging: MRI noncontrast of the lumbar spine from 10/29/23 reviewed Assessment and plan: Chronic LBP secondary to lumbar spinal stenosis, DDD, spondylosis with facet arthropathy without myelopathy, R hip DJD Recommendation of follow up w Dr Mas for his R hip and Dr Shelton for his lumbar spine. Chronic and current use of high-risk medication (Opioids). The patient was counseled about risk of opioid use, psychological risk associated with opioids and was orally counseled to not overuse , divert or sell medications. Pt is to store medication in a safe location. The patient is counseled against driving while using narcotic medications and also not to use alcohol or any illicit recreational drugs. Patient verbalized understanding that the lack of compliance will result in failure to renew narcotic prescription(s) as well as possible discharge from the clinic Diagnoses, prognosis and treatment options including but not limited to physical therapy, surgical interventions, interventional therapies and medication management including narcotics and adjuvant medication were discussed. All patient questions answered. UDS collected 04/05/24. MAPS reviewed and it was appropriate. Prescription of Tyl #3 #60. Lyrica 100mg #90, Baclofen w 1 RF. Use, side effects, adverse reactions and safe storage discussed. Pt acknowledged understanding. I have spent less than 30 minutes on patient care today. Dr Cullen was available by phone for the evaluation of this patient. The time was used to review the medical records including relevant urine studies and Prescription history (MAPs), review of the available imaging, evaluation and examination of the patient, coordination of care with the medical staff and if applicable referring physicians, as well as creation of the medical record PQRS Narrative: Smoking Status Current every day smoker Narcotic Agreement Date Signed 07/07/23 Hx Alcohol Use (MH) No Home Medications: Ambulatory Orders DULoxetine HCL [Cymbalta] 60 mg PO HS 12/31/14 Levothyroxine Sodium [Synthroid] 88 mcg PO DAILY 11/17/18 Testosterone Cypionate [Depo-Testosterone] 200 mg IM Q14D 11/17/18 Dicyclomine HCl 20 mg PO QID PRN 01/06/21 Metoprolol Tartrate [Lopressor] 50 mg PO BID 02/04/21 allopurinoL [Zyloprim] 200 mg PO DAILY 06/02/21 Ferrous Sulfate [Iron (65 MG Elemental)] 325 mg PO DAILY 11/13/21 Empagliflozin [Jardiance] 10 mg PO DAILY 11/25/22 Pioglitazone [Actos] 15 mg PO DAILY 11/25/22 Pantoprazole [Protonix] 40 mg PO BID 01/21/23 hydroCHLOROthiazide [Hydrodiuril] 12.5 mg PO DAILY 01/21/23 Semaglutide [Ozempic] 2 mg SQ WE 06/16/23 Multivitamins, Thera [Multivitamin (formulary)] 1 tab PO DAILY 11/12/23 Aspirin EC [Ecotrin Low Dose] 81 mg PO DAILY 02/21/24 Atorvastatin [Lipitor] 20 mg PO HS 02/21/24 Cariprazine HCl [Vraylar] 3 mg PO DAILY 02/21/24 Cyanocobalamin (Vitamin B-12) [Vitamin B-12] 1,000 mcg PO DAILY 02/21/24 Famotidine 40 mg PO HS 02/21/24 Folic Acid 1 mg PO DAILY 02/21/24 Insulin Degludec [Tresiba Flextouch U-200 Pen] 20 units SQ DAILY 02/21/24 Ivabradine HCl [Corlanor] 5 mg PO BID 02/21/24 Prazosin [Minipress] 1 mg PO HS 02/21/24 hydrALAZINE HCL [Apresoline] 25 mg PO TID 02/21/24 metFORMIN HCL ER [Glucophage XR] 500 mg PO BID-W/MEALS 02/21/24 Naproxen [EC-Naprosyn] 500 mg PO BID PRN #60 tab 02/22/24 Acetaminophen-Codeine 300-30mg [Tylenol w/codeine #3] 1 tab PO TID PRN 30 Days #90 tablet 04/05/24 Baclofen [Lioresal] 10 mg PO TID 30 Days #90 tablet 04/05/24 Pregabalin [Lyrica] 100 mg PO TID 30 Days #90 cap 04/05/24 Controlled Substance Measures - Controlled Substance Measures Is patient prescribed a controlled substance at discharge?: Yes When asked, does pt state using other controlled substances?: No If prescribed controlled substance>3 days was MAPS reviewed?: Yes
== END ==
LOC: PNWHC3 12:45
PROVIDERS: ATTEND Specialist
DX: M51.36 Other intervertebral disc degeneration, lumbar region (principal); M47.816 Spondylosis without myelopathy or radiculopathy, lumbar region; M48.061 Spinal stenosis, lumbar region without neurogenic claudication; M16.11 Unilateral primary osteoarthritis, right hip; F17.200 Nicotine dependence, unspecified, uncomplicated; Z79.891 Long term (current) use of opiate analgesic; Z91.048 Other nonmedicinal substance allergy status; Z88.8 Allergy status to other drugs, medicaments and biological substances; Z91.041 Radiographic dye allergy status; Z88.5 Allergy status to narcotic agent; Z88.2 Allergy status to sulfonamides; Z88.1 Allergy status to other antibiotic agents
CPT/HCPCS: 99212

== ENCOUNTER → 2024-04-17 | Outpatient (CLI) | payer MEDICARE | END | disposition home or self-care (01) | LOC: LABPAT 14:06 | PROVIDERS: ATTEND Orthopaedic Surgery | DX: M48.061 Spinal stenosis, lumbar region without neurogenic claudication (principal); M43.16 Spondylolisthesis, lumbar region; M47.26 Other spondylosis with radiculopathy, lumbar region; Z22.322 Carrier or suspected carrier of Methicillin resistant Staphylococcus aureus | CPT/HCPCS: 86850; 86900; 86901; 87070 ==

== ENCOUNTER → 2024-06-07 | Outpatient (CLI) | payer MEDICARE, SELFPAY ==
--- NOTE | 2024-07-18 10:22 | PN ---
PROGRESS NOTE DATE OF SERVICE: 06/07/2024 Followup visit in sleep center. A 53-year-old gentleman has been followed in sleep center for treatment of obstructive sleep apnea-hypopnea syndrome. This is his first visit after the patient received CPAP unit. The patient had difficulties with usage of CPAP equipment during his first month. [place] Sleepiness Scale slightly increased to 11. I checked CPAP unit. AutoPAP with range of the pressure 5-15 and average pressure 12.6, EPR 1. Usage nights and only 3/ nights for more than 4 hours. Leak 17 L/minute which is normal. Apnea-hypopnea index is 1.5 which is perfect. MEDICATIONS: 1. Albuterol. 2. Atorvastatin. 3. Ferrous sulfate. 4. Levothyroxine. 5. Lyrica. 6. Metoprolol. 7. Prazosin. PHYSICAL EXAMINATION: GENERAL: The patient in no distress. VITAL SIGNS: BP 123/82, HR 82, RR 16, weight 210 pounds, temperature 97.5, oxygen saturation at room air 95%. HEENT: PERRLA. EOMI. NECK: Supple. No JVD. LUNGS: Clear. HEART: S1, S2 regular. ABDOMEN: Obese, soft, nontender. EXTREMITIES: No edema. [employer]: No focal deficit. IMPRESSION: 1. Obstructive sleep apnea-hypopnea syndrome. Presently, the patient does not demonstrate good compliance with treatment. 2. Obesity. 3. Hypertension. 4. Diabetes mellitus. 5. History of stroke. 6. Hyperlipidemia. 7. History of iron deficiency. PLAN: 1. The patient was strongly recommended to use CPAP equipment every night for the whole night, and the patient promised to follow recommendations. 2. We will extend trial period for another 90 nights if necessary. 3. Sleep hygiene and regular time in bed for at least 7-1/2 to 8 hours. 4. No driving if feeling sleepiness. 5. Followup visit in 1-2 months. Thank you very much for allowing me to participate in the management of your patient. MMODL / IJN: [id number] /
== END ==
LOC: 3 N SLEEP 14:50
PROVIDERS: ATTEND Internal Medicine
CPT/HCPCS: 99212

== ENCOUNTER → 2024-06-07 | Outpatient (CLI) | payer MEDICARE, SELFPAY | LOC: PNWHC3 12:21 | DX: M48.061 Spinal stenosis, lumbar region without neurogenic claudication (principal); M54.16 Radiculopathy, lumbar region; F17.200 Nicotine dependence, unspecified, uncomplicated; Z91.048 Other nonmedicinal substance allergy status; Z88.8 Allergy status to other drugs, medicaments and biological substances; Z91.041 Radiographic dye allergy status; Z88.5 Allergy status to narcotic agent; Z88.2 Allergy status to sulfonamides; Z88.1 Allergy status to other antibiotic agents | CPT/HCPCS: 99211 ==

== ENCOUNTER → 2024-08-02 | Outpatient (CLI) | payer MEDICARE, SELFPAY ==
[2024-08-02 11:46] VITALS: BP 122/88; PULSE 88; RESP 18
--- NOTE | 2024-08-02 14:39 | P.PAINPG ---
PQRS Measure Charge Sheet Comment: A 53 yr old male with a history of severe and chronic R hip and LBP x 1 yr secondary to R hip DJD, radiculopathy, spondylosis and facet arthropathy without myelopathy presents today for medication refills and evaluation. Pain level is provoked at 8 /10 in intensity, constant, localized in the lumbar spine and R hip, predominantly axial, burning in character without shooting pain. Pain is provoked by bending, lifting in excess of 10 lbs. Pain is alleviated with medications, injections, ice/ heat, PT x 8 wks in Nov 2022, physician guided home stretching regimen daily since Nov 2022, reclining and rest. Pt states he has appts w Dr Mas for his R hip and Dr Shelton for his lumbar spine and R hip but has not gone forward with any surgical plans. Interventional pain procedures completed include LESIs, BL RFA L3-L5 (Aug 2022), R hip injection x1 (Jan 2024) Patient is currently on Tyl #3, Baclofen, Lyrica, Mobic Patient denies any side effects of the medication(s), denies excessive drowsiness or sleepiness, denies suicidal ideation and reports that the current pain medication is helping to control the pain and improve activities of daily living. Patient denies any motor or sensory deficits. Patient denies any fever or night sweats, denies any change in the bowel movements or urination. Physical Examination: -Constitutional: Cooperative. Not in acute distress . - Neurologic: Cranial nerve II to XII intact. No focal neurological deficits. - Psychatric: Alert & oriented x 3. Matching mood & appropriate affect. Judgment and insight intact. - Musculoskeletal: Cervical spine: Muscle bulk/ tone/ strength in the bilateral upper extremities normal Vertebral body tenderness to palpation over Spurling test positive Distraction test positive Facet loading test positive TTP Thoracic spine Muscle bulk / tone/ strength in the bilateral paraspinal muscles normal Vertebral body tender to palpation over Facet loading test positive TTP Lumbar spine: +R Hip Abduction Motor bulk/ tone/ strength lower extremities , thigh and legs : 5/5 Deep tendon reflexes : Normal Knee Jerk. Normal Ankle Jerk . Vertebral body tenderness to palpation over L4 Lumbar Facet Loading Test positive Straight Leg Raise: positive at 30 degrees right side> left side Gaenslen's Test positive Sacral spine : Severe tenderness over the Sacroiliac joint: right side / left side Range of motion: Flexion of the lumbar spine <60 degrees Range of motion: Extension of the lumbar spine <20 degrees Gaenslen's Test positive right side / left side Abebe test: positive right side / left side Thigh Thrust Test positive right side / left side Sacral Thrust Test positive right side / left side Imaging: MRI noncontrast of the lumbar spine from 10/29/23 reviewed Assessment and plan: Chronic LBP secondary to lumbar spinal stenosis, radiculopathy, spondylosis with facet arthropathy without myelopathy, R hip DJD Recommendation of follow up w Dr Mas for his R hip and Dr Shelton for his lumbar spine. Chronic and current use of high-risk medication (Opioids). The patient was counseled about risk of opioid use, psychological risk associated with opioids and was orally counseled to not overuse , divert or sell medications. Pt is to store medication in a safe location. The patient is counseled against driving while using narcotic medications and also not to use alcohol or any illicit recreational drugs. Patient verbalized understanding that the lack of compliance will result in failure to renew narcotic prescription(s) as well as possible discharge from the clinic Diagnoses, prognosis and treatment options including but not limited to physical therapy, surgical interventions, interventional therapies and medication management including narcotics and adjuvant medication were discussed. All patient questions answered. No UDS recorded Apr 2024. UDS from 12/15/23 reviewed and consistent. Will repeat UDS 08/02/24. MAPS reviewed and it was appropriate. Prescription of Tyl #3 #60. Lyrica 100mg #90, Baclofen w 1 RF. Use, side effects, adverse reactions and safe storage discussed. Pt acknowledged understanding. I have spent less than 30 minutes on patient care today. Dr Cullen was available by phone for the evaluation of this patient. The time was used to review the medical records including relevant urine studies and Prescription history (MAPs), review of the available imaging, evaluation and examination of the patient, coordination of care with the medical staff and if applicable referring physicians, as well as creation of the medical record PQRS Narrative: Smoking Status Current every day smoker Narcotic Agreement Date Signed 07/07/23 Hx Alcohol Use (MH) No Home Medications: Ambulatory Orders DULoxetine HCL [Cymbalta] 60 mg PO HS 12/31/14 Levothyroxine Sodium [Synthroid] 88 mcg PO DAILY 11/17/18 Testosterone Cypionate [Depo-Testosterone] 200 mg IM Q14D 11/17/18 Dicyclomine HCl 20 mg PO QID PRN 01/06/21 Metoprolol Tartrate [Lopressor] 50 mg PO BID 02/04/21 allopurinoL [Zyloprim] 200 mg PO DAILY 06/02/21 Ferrous Sulfate [Iron (65 MG Elemental)] 325 mg PO DAILY 11/13/21 Empagliflozin [Jardiance] 10 mg PO DAILY 11/25/22 Pioglitazone [Actos] 15 mg PO DAILY 11/25/22 Pantoprazole [Protonix] 40 mg PO BID 01/21/23 hydroCHLOROthiazide [Hydrodiuril] 12.5 mg PO DAILY 01/21/23 Semaglutide [Ozempic] 2 mg SQ WE 06/16/23 Multivitamins, Thera [Multivitamin (formulary)] 1 tab PO DAILY 11/12/23 Aspirin EC [Ecotrin Low Dose] 81 mg PO DAILY 02/21/24 Atorvastatin [Lipitor] 20 mg PO HS 02/21/24 Cariprazine HCl [Vraylar] 3 mg PO DAILY 02/21/24 Cyanocobalamin (Vitamin B-12) [Vitamin B-12] 1,000 mcg PO DAILY 02/21/24 Famotidine 40 mg PO HS 02/21/24 Folic Acid 1 mg PO DAILY 02/21/24 Insulin Degludec [Tresiba Flextouch U-200 Pen] 20 units SQ DAILY 02/21/24 Ivabradine HCl [Corlanor] 5 mg PO BID 02/21/24 Prazosin [Minipress] 1 mg PO HS 02/21/24 hydrALAZINE HCL [Apresoline] 25 mg PO TID 02/21/24 metFORMIN HCL ER [Glucophage XR] 500 mg PO BID-W/MEALS 02/21/24 Naproxen [EC-Naprosyn] 500 mg PO BID PRN #60 tab 02/22/24 Acetaminophen-Codeine 300-30mg [Tylenol w/codeine #3] 1 tab PO TID PRN 30 Days #90 tablet 04/05/24 Baclofen [Lioresal] 10 mg PO TID 30 Days #90 tablet 04/05/24 Pregabalin [Lyrica] 100 mg PO TID 30 Days #90 cap 04/05/24 Controlled Substance Measures - Controlled Substance Measures Is patient prescribed a controlled substance at discharge?: Yes When asked, does pt state using other controlled substances?: Yes If prescribed controlled substance>3 days was MAPS reviewed?: Yes
== END ==
LOC: PNWHC3 11:04
PROVIDERS: ATTEND Specialist
DX: M16.11 Unilateral primary osteoarthritis, right hip (principal); M48.061 Spinal stenosis, lumbar region without neurogenic claudication; M47.26 Other spondylosis with radiculopathy, lumbar region; F17.200 Nicotine dependence, unspecified, uncomplicated; Z79.891 Long term (current) use of opiate analgesic; Z88.2 Allergy status to sulfonamides; Z91.048 Other nonmedicinal substance allergy status; Z88.1 Allergy status to other antibiotic agents; Z88.9 Allergy status to unspecified drugs, medicaments and biological substances; Z88.8 Allergy status to other drugs, medicaments and biological substances
CPT/HCPCS: 80307; 99211

== ENCOUNTER → 2024-09-25 | Outpatient (CLI) | payer MEDICARE ==
[2024-09-25 15:10] VITALS: BP 113/77; PULSE 77; RESP 16
--- NOTE | 2024-09-25 16:52 | P.PAINPG ---
Objective - Vital Signs Vital signs: Intake & Output 09/24/24 09/25/24 09/25/24 18:59 06:59 18:59 Weight 90.718 kg PQRS Measure Charge Sheet Comment: A 53 yr old male with a history of severe and chronic R hip and LBP x 1 yr secondary to R hip DJD, radiculopathy, spondylosis and facet arthropathy without myelopathy presents today for medication refills and evaluation. Pain level is provoked at 8 /10 in intensity, constant, localized in the lumbar spine and R hip, predominantly axial, burning in character w occasional BLE shooting pain. Pain is provoked by bending, lifting in excess of 10 lbs. Pain is alleviated with medications, injections, ice/ heat, PT x 8 wks in Nov 2022, physician guided home stretching regimen daily since Nov 2022, reclining and rest. Interventional pain procedures completed include LESIs, BL RFA L3-L5 (Aug 2022), R hip injection x1 (Jan 2024) Patient is currently on Tyl #3, Baclofen, Lyrica, Mobic Patient denies any side effects of the medication(s), denies excessive drowsiness or sleepiness, denies suicidal ideation and reports that the current pain medication is helping to control the pain and improve activities of daily living. Patient denies any motor or sensory deficits. Patient denies any fever or night sweats, denies any change in the bowel movements or urination. Physical Examination: -Constitutional: Cooperative. Not in acute distress . - Neurologic: Cranial nerve II to XII intact. No focal neurological d eficits. - Psychatric: Alert & oriented x 3. Matching mood & appropriate affect. Judgment and insight intact. - Musculoskeletal: Cervical spine: Muscle bulk/ tone/ strength in the bilateral upper extremities normal Vertebral body tenderness to palpation over Spurling test positive Distraction test positive Facet loading test positive TTP Thoracic spine Muscle bulk / tone/ strength in the bilateral paraspinal muscles normal Vertebral body tender to palpation over Facet loading test positive TTP Lumbar spine: +R Hip Abduction Motor bulk/ tone/ strength lower extremities , thigh and legs : 5/5 Deep tendon reflexes : Normal Knee Jerk. Normal Ankle Jerk . Vertebral body tenderness to palpation over L4 Lumbar Facet Loading Test positive Straight Leg Raise: positive at 30 degrees right side> left side Gaenslen's Test positive Sacral spine : Severe tenderness over the Sacroiliac joint: right side / left side Range of motion: Flexion of the lumbar spine <60 degrees Range of motion: Extension of the lumbar spine <20 degrees Gaenslen's Test positive right side / left side Abebe test: positive right side / left side Thigh Thrust Test positive right side / left side Sacral Thrust Test positive right side / left side Imaging: MRI non contrast of the lumbar spine from 10/29/23 reviewed Assessment and plan: Chronic LBP secondary to lumbar spinal stenosis, radiculopathy, spondylosis with facet arthropathy without myelopathy, R hip DJD Awaiting pt follow up w Dr Mas for his R hip and Dr Shelton for his lumbar spine. Pt states he has lumbar surgery scheduled for Nov 2024. Chronic and current use of high-risk medication (Opioids). The patient was counseled about risk of opioid use, psychological risk associated with opioids and was orally counseled to not overuse , divert or sell medications. Pt is to store medication in a safe location. The patient is counseled against driving while using narcotic medications and also not to use alcohol or any illicit recreational drugs. Patient verbalized understanding that the lack of compliance will result in failure to renew narcotic prescription(s) as well as possible discharge from the clinic Diagnoses, prognosis and treatment options including but not limited to physical therapy, surgical interventions, interventional therapies and medication management including narcotics and adjuvant medication were discussed. All patient questions answered. UDS from 08/02/24 reviewed and consistent. MAPS reviewed and it was appropriate. Prescription of Tyl #3 #60. Lyrica 100mg #90, Baclofen w 1 RF. Use, side effects, adverse reactions and safe storage discussed. Pt acknowledged understanding. I have spent less than 30 minutes on patient care today. Dr Cullen was available by phone for the evaluation of this patient. The time was used to review the medical records including relevant urine studies and Prescription history (MAPs), review of the available imaging, evaluation and examination of the patient, coordination of care with the medical staff and if applicable referring physicians, as well as creation of the medical record PQRS Narrative: Smoking Status Current every day smoker Narcotic Agreement Date Signed 07/07/23 Hx Alcohol Use (MH) No Home Medications: Ambulatory Orders DULoxetine HCL [Cymbalta] 60 mg PO HS 12/31/14 Levothyroxine Sodium [Synthroid] 88 mcg PO DAILY 11/17/18 Testosterone Cypionate [Depo-Testosterone] 200 mg IM Q14D 11/17/18 Dicyclomine HCl 20 mg PO QID PRN 01/06/21 Metoprolol Tartrate [Lopressor] 50 mg PO BID 02/04/21 allopurinoL [Zyloprim] 200 mg PO DAILY 06/02/21 Ferrous Sulfate [Iron (65 MG Elemental)] 325 mg PO DAILY 11/13/21 Empagliflozin [Jardiance] 10 mg PO DAILY 11/25/22 Pioglitazone [Actos] 15 mg PO DAILY 11/25/22 Pantoprazole [Protonix] 40 mg PO BID 01/21/23 hydroCHLOROthiazide [Hydrodiuril] 12.5 mg PO DAILY 01/21/23 Semaglutide [Ozempic] 2 mg SQ WE 06/16/23 Multivitamins, Thera [Multivitamin (formulary)] 1 tab PO DAILY 11/12/23 Aspirin EC [Ecotrin Low Dose] 81 mg PO DAILY 02/21/24 Atorvastatin [Lipitor] 20 mg PO HS 02/21/24 Cariprazine HCl [Vraylar] 3 mg PO DAILY 02/21/24 Cyanocobalamin (Vitamin B-12) [Vitamin B-12] 1,000 mcg PO DAILY 02/21/24 Famotidine 40 mg PO HS 02/21/24 Folic Acid 1 mg PO DAILY 02/21/24 Insulin Degludec [Tresiba Flextouch U-200 Pen] 20 units SQ DAILY 02/21/24 Ivabradine HCl [Corlanor] 5 mg PO BID 02/21/24 Prazosin [Minipress] 1 mg PO HS 02/21/24 hydrALAZINE HCL [Apresoline] 25 mg PO TID 02/21/24 metFORMIN HCL ER [Glucophage XR] 500 mg PO BID-W/MEALS 02/21/24 Naproxen [EC-Naprosyn] 500 mg PO BID PRN #60 tab 02/22/24 Acetaminophen-Codeine 300-30mg [Tylenol w/codeine #3] 1 tab PO TID PRN 30 Days #90 tablet 09/25/24 Baclofen [Lioresal] 10 mg PO TID 30 Days #90 tablet 09/25/24 Pregabalin [Lyrica] 100 mg PO TID 30 Days #90 cap 09/25/24 Controlled Substance Measures - Controlled Substance Measures Is patient prescribed a controlled substance at discharge?: Yes When asked, does pt state using other controlled substances?: No If prescribed controlled substance>3 days was MAPS reviewed?: Yes
== END ==
LOC: PNWHC3 14:24
PROVIDERS: ATTEND Specialist
DX: M47.26 Other spondylosis with radiculopathy, lumbar region (principal); M48.061 Spinal stenosis, lumbar region without neurogenic claudication; M16.11 Unilateral primary osteoarthritis, right hip; F17.200 Nicotine dependence, unspecified, uncomplicated; Z91.048 Other nonmedicinal substance allergy status; Z88.1 Allergy status to other antibiotic agents; Z88.8 Allergy status to other drugs, medicaments and biological substances; Z88.2 Allergy status to sulfonamides; Z91.041 Radiographic dye allergy status
CPT/HCPCS: 99211

== ENCOUNTER → 2024-11-03 | Outpatient (CLI) | payer MEDICARE, OTHER, SELFPAY ==
--- NOTE | 2024-11-03 15:17 | XR ---
EXAMINATION TYPE: XR chest 2V DATE OF EXAM: 11/03/2024 2:34 PM COMPARISON: 02/21/2024 CLINICAL INDICATION: Male, 54 years old with history of [id number] PRE OP, TECHNIQUE: XR chest 2V view(s) obtained. FINDINGS: The heart size is normal. The pulmonary vasculature is normal. The lungs are clear. IMPRESSION: 1. No acute pulmonary process. [facility], , 11/03/2024 3:15 PM
== END | disposition home or self-care (01) ==
LOC: RADXRYALE 14:13
PROVIDERS: ATTEND Physician Assistant Medical
DX: Z01.811 Encounter for preprocedural respiratory examination (principal)
CPT/HCPCS: 71046

== ENCOUNTER 2024-12-30 13:48 | Observation (INO) | payer MEDICARE, SELFPAY ==
[2024-12-30 14:24] LABS: Basophils % (A) 0 %; Eosinophils % (A) 1 %; HCT 53.9 % (39.0-53.0); HGB 17.7 gm/dL (13.0-17.5); Lymphocytes % (A) 9 %; MCH 32.8 pg (25.0-35.0); MCHC 32.8 g/dL (31.0-37.0); MCV 100.1 fL (80.0-100.0); Mean Platelet Volume 8.7; Monocytes % (A) 4 %; Neutrophils % (A) 85 %; Platelet Count 340 k/uL (150-450); RBC 5.39 m/uL (4.30-5.90); RDW 12.9 % (11.5-15.5); WBC 15.9 k/uL (3.8-10.6)
--- NOTE | 2024-12-30 14:24 | XR ---
EXAMINATION TYPE: XR chest 2V DATE OF EXAM: 12/30/2024 2:20 PM COMPARISON: None available. CLINICAL INDICATION: Male, 54 years old with history of Chest Pain; [facility] TECHNIQUE: XR chest 2V Frontal and lateral views of the chest. FINDINGS: Lungs/Pleura: There is no evidence of pleural effusion, focal consolidation, or pneumothorax. Pulmonary vascularity: Unremarkable. Heart/mediastinum: Cardiomediastinal silhouette is unremarkable. Musculoskeletal: No acute osseous pathology. Anterior cervical spinal fusion hardware. Other findings: None IMPRESSION: No acute cardiopulmonary disease/process. [facility], , 12/30/2024 2:22 PM
[2024-12-30 14:25] LABS: Basophils # (A) 0.1 k/uL (0-0.2); Eosinophils # (A) 0.2 k/uL (0-0.7); Lymphocytes # (A) 1.4 k/uL (1.0-4.8); Monocytes # (A) 0.7 k/uL (0-1.0); Neutrophils # (A) 13.5 k/uL (1.3-7.7)
[2024-12-30 14:33] LABS: Partial Thromboplastin Time 24.5 sec (22.0-30.0); Prothrombin Time 11.4 sec (10.0-12.5)
[2024-12-30 14:35] LABS: ALT 29 U/L (4-49); AST 19 U/L (17-59); African American GFR (CKD) >90 (>60 ml/min/1.73 sqM); Albumin 4.3 g/dL (3.5-5.0); Alkaline Phosphatase 86 U/L (38-126); Anion Gap 14 mmol/L; Blood Urea Nitrogen 16 mg/dL (9-20); Calcium 9.6 mg/dL (8.4-10.2); Carbon Dioxide 27 mmol/L (22-30); Chloride 95 mmol/L (98-107); Glucose 124 mg/dL (74-99); Magnesium 1.9 mg/dL (1.6-2.3); Non-African American GFR(CKD) 81 (>60 ml/min/1.73 sqM); Potassium 4.4 mmol/L (3.5-5.1); Sodium 136 mmol/L (137-145); Total Bilirubin 0.8 mg/dL (0.2-1.3); Total Protein 7.1 g/dL (6.3-8.2)
[2024-12-30 15:44] LABS: Influenza A Not Detected (Not Detectd); Influenza B Not Detected (Not Detectd); RSV Not Detected (Not Detectd)
[2024-12-30] MEDS: ASPIRIN 325 MG TAB PO STA (16:06)
[2024-12-30] MEDS: HYDROmorphone 0.5 MG/0.5 ML SYRINGE IVP STA (16:06)
[2024-12-30] MEDS ORDERED: NALOXONE 0.4 MG/ML 1 ML VIAL IV PRN (16:19)
--- NOTE | 2024-12-30 16:19 | ED ---
General Adult HPI - General Chief complaint: Chest Pain Stated complaint: chest pain head and back pain Time Seen by Provider: 12/30/24 14:08 Source: patient, RN notes reviewed, old records reviewed Mode of arrival: ambulatory Limitations: no limitations - History of Present Illness Initial comments: 54-year-old presenting for evaluation of of chest pain which has been present for the past several days. Patient is a poor historian and does indicate that he has had multiple symptoms some of them lasting upwards of a month including headache, chronic low back pain, productive cough. He states that his main concern today is this nonradiating left-sided chest pain. No associated vomiting. No fever. - Related Data Home Medications Medication Instructions Recorded Confirmed DULoxetine HCL [Cymbalta] 60 mg PO HS 12/31/14 05/16/24 Levothyroxine Sodium [Synthroid] 88 mcg PO DAILY 11/17/18 05/16/24 Testosterone Cypionate 200 mg IM Q14D 11/17/18 05/16/24 [Depo-Testosterone] Dicyclomine HCl 20 mg PO QID PRN 01/06/21 05/16/24 Metoprolol Tartrate [Lopressor] 50 mg PO BID 02/04/21 05/16/24 allopurinoL [Zyloprim] 200 mg PO DAILY 06/02/21 05/16/24 Ferrous Sulfate [Iron (65 MG 325 mg PO DAILY 11/13/21 05/16/24 Elemental)] Empagliflozin [Jardiance] 10 mg PO DAILY 11/25/22 05/16/24 Pioglitazone [Actos] 15 mg PO DAILY 11/25/22 05/16/24 Pantoprazole [Protonix] 40 mg PO BID 01/21/23 05/16/24 hydroCHLOROthiazide [Hydrodiuril] 12.5 mg PO DAILY 01/21/23 05/16/24 Semaglutide [Ozempic] 2 mg SQ WE 06/16/23 05/16/24 Multivitamins, Thera [Multivitamin 1 tab PO DAILY 11/12/23 05/16/24 (formulary)] Aspirin EC [Ecotrin Low Dose] 81 mg PO DAILY 02/21/24 05/16/24 Atorvastatin [Lipitor] 20 mg PO HS 02/21/24 05/16/24 Cariprazine HCl [Vraylar] 3 mg PO DAILY 02/21/24 05/16/24 Cyanocobalamin (Vitamin B-12) 1,000 mcg PO DAILY 02/21/24 05/16/24 [Vitamin B-12] Famotidine 40 mg PO HS 02/21/24 05/16/24 Folic Acid 1 mg PO DAILY 02/21/24 05/16/24 Insulin Degludec [Tresiba 20 units SQ DAILY 02/21/24 05/16/24 Flextouch U-200 Pen] Ivabradine HCl [Corlanor] 5 mg PO BID 02/21/24 05/16/24 Prazosin [Minipress] 1 mg PO HS 02/21/24 05/16/24 hydrALAZINE HCL [Apresoline] 25 mg PO TID 02/21/24 05/16/24 metFORMIN HCL ER [Glucophage XR] 500 mg PO BID-W/MEALS 02/21/24 05/16/24 Previous Rx's Medication Instructions Recorded Naproxen [EC-Naprosyn] 500 mg PO BID PRN #60 tab 02/22/24 Acetaminophen-Codeine 300-30mg 1 tab PO TID PRN 30 Days #90 tablet 12/11/24 [Tylenol w/codeine #3] Baclofen [Lioresal] 10 mg PO TID 30 Days #90 tablet 12/11/24 Pregabalin [Lyrica] 100 mg PO TID 30 Days #90 cap 12/11/24 Allergies Allergy/AdvReac Type Severity Reaction Status Date / Time adhesive tape Allergy Rash/Hives Verified 12/30/24 14:02 cefaclor [From Ceclor] Allergy Rash/Hives Verified 12/30/24 14:02 dapagliflozin [From Farxiga] Allergy yeast Verified 12/30/24 14:02 infections Iodinated Contrast Media Allergy Rash/Hives,throat Verified 12/30/24 14:02 [Iodinated Contrast Media - swelling IV Dye] propoxyphene napsylate Allergy Rash/Hives Verified 12/30/24 14:02 [From Darvocet-N 100] Sulfa (Sulfonamide Allergy Dyspnea, Verified 12/30/24 14:02 Antibiotics) rapid heart rate sulfamethoxazole Allergy Rapid Verified 12/30/24 14:02 [From Bactrim] Heart Rate, Shortness of breath trimethoprim [From Bactrim] Allergy Rapid Verified 12/30/24 14:02 Heart Rate, Shortness of breath Review of Systems ROS Statement: Those systems with pertinent positive or pertinent negative responses have been documented in the HPI. ROS Other: All systems not noted in ROS Statement are negative. Past Medical History Past Medical History: Asthma, Coronary Artery Disease (CAD), Chest Pain / Angina, Heart Failure, CVA/TIA, Diabetes Mellitus, Eye Disorder, GERD/Reflux, Hyperlipidemia, Hypertension, Liver Disease, Musculoskeletal Disorder, Prostate Disorder, Renal Disease, Skin Disorder, Sleep Apnea/CPAP/BIPAP, Thyroid Disorder, Vascular Disorder Additional Past Medical History / Comment(s): TMJ, sinus problems, eczema, kidney stones, diverticulitis, back pain w/ DDD, physical limitations, numbness and tingling in bilateral hands, hx skin cancer, hyperflexia, slight cataracts, hx CVA 11/2018-no residual effects, hx of elevated WBC's-sees Dr. Luna-states just normal for him, PVD, Kidney Disease Stage 3, fatty liver, uses CPAP., stroke, , fibromyalgia, arthritis, nasal polyps, bronchitis, snoring, pneumonia History of Any Multi-Drug Resistant Organisms: None Reported Past Surgical History: Adenoidectomy, Hernia Repair, Orthopedic Surgery, Tonsillectomy Additional Past Surgical History / Comment(s): Urolift, wart on uvula removed, pain clinic procedures, Lt. knee arthroscopy X2, varicose vein procedure, bilat. CTR, Lt. wrist surgery, Bilat. elbow surgery, cervical fusion Past Anesthesia/Blood Transfusion Reactions: No Reported Reaction Additional Past Anesthesia/Blood Transfusion Reaction / Comment(s): Hard to wake up. Past Psychological History: Anxiety, Depression Smoking Status: Former smoker Past Alcohol Use History: None Reported Past Drug Use History: None Reported - Past Family History Mother Family Medical History: Cancer, Deep Vein Thrombosis (DVT) Father Family Medical History: Cancer, Chest Pain / Angina, Congestive Heart Failure (CHF) Additional Family Medical History / Comment(s): BRONCHITIS, PNEUMONIA, LUNG, SLEEP APNEA, CANCER, INSOMNIA, ULCERS, DIABETES, ANEMIA, RESTLESS LEGS General Exam Limitations: no limitations General appearance: alert, in no apparent distress Head exam: Present: atraumatic, normocephalic Eye exam: Present: normal appearance, PERRL ENT exam: Present: normal exam Neck exam: Present: normal inspection. Absent: tenderness, meningismus Respiratory exam: Present: normal lung sounds bilaterally. Absent: respiratory distress, wheezes Cardiovascular Exam: Present: regular rate, normal rhythm GI/Abdominal exam: Present: soft. Absent: distended, tenderness, guarding Extremities exam: Present: normal inspection, normal capillary refill Neurological exam: Present: alert, oriented X3, CN II-XII intact. Absent: motor sensory deficit Psychiatric exam: Present: normal affect, normal mood Skin exam: Present: warm, dry, intact Course Vital Signs 12/30/24 13:58 Temperature 97.5 F L Pulse Rate 105 H Respiratory 18 Rate Blood Pressure 150/98 O2 Sat by Pulse 96 Oximetry Medical Decision Making - Medical Decision Making Was pt. sent in by a medical professional or institution (ALECIA Loja, PROFESSIONAL SERVICES CONSULTANT, urgent care, hospital, or senior care...) When possible be specific @ -No Did you speak to anyone other than the patient for history (EMS, parent, family, police, friend...)? What history was obtained from this source @ -No Did you review nursing and triage notes (agree or disagree)? Why? @ -I reviewed and agree with nursing and triage notes Were old charts reviewed (outside hosp., previous admission, EMS record, old EKG, old radiological studies, urgent care reports/EKG's, senior care records)? Report findings @ -No old charts were reviewed Differential Chest Pain: Stable Angina, Unstable Angina, STEMI, NSTEMI Aortic Dissection, Pneumothorax, Musculoskeletal, Esophageal Spasm GERD, Cholecystitis, Pancreatitis, Zoster, this is not meant to be an all-inclusive list. EKG interpreted by me (3pts min.). @Sinus tachycardia rate of 104 CO interval 136, QRS duration 100, QTc 370 X-rays interpreted by me (1pt min.). @ -Chest x-ray negative for acute cardiopulmonary CT interpreted by me (1pt min.). @ -None done U/S interpreted by me (1pt. min.). @ -None done What testing was considered but not performed or refused? (CT, X-rays, U/S, labs)? Why? @ -None What meds were considered but not given or refused? Why? @ -None Did you discuss the management of the patient with other professionals ( professionals i.e. ALECIA Loja, PROFESSIONAL SERVICES CONSULTANT, lab, RT, psych nurse, social media sr strategy manager, personal lines account manager, teacher, chief quality officer, director case)? Give summary @ -Sound physician group. Was smoking cessation discussed for >3mins.? @ -No Was critical care preformed (if so, how long)? @ -No Were there social determinants of health that impacted care today? How? (Homelessness, low income, unemployed, alcoholism, drug addiction, transportation, low edu. Level, literacy, decrease access to med. care, fdc, rehab)? @ -No Was there de-escalation of care discussed even if they declined (Discuss DNR or withdrawal of care, Hospice)? DNR status @ -No What co-morbidities impacted this encounter? (DM, HTN, Smoking, COPD, CAD, Ca ncer, CVA, ARF, Chemo, Hep., AIDS, mental health diagnosis, sleep apnea, morbid obesity)? @Significant comorbidities Was patient admitted / discharged? Hospital course, mention meds given and route, prescriptions, significant lab abnormalities, going to OR and other pertinent info. @ -[84-year-old male with multiple complaints, chief complaint being left-sided chest pain. EKG is sinus tach rate of [address] segment elevation. Patient has a leukocytosis which I suspect is secondary to recent steroid use. Patient otherwise well-appearing with stable vitals. Has persistent left-sided chest pain. Initial troponin is negative. Patient will be admitted for telemetry, serial cardiac enzymes, cardiology consultation. Undiagnosed new problem with uncertain prognosis? @ -No Drug Therapy requiring intensive monitoring for toxicity (Heparin, Nitro, Insulin, Cardizem)? @ -No Were any procedures done? @ -No Diagnosis/symptom? @ -Chest pain rule out Acute, or Chronic, or Acute on Chronic? @ -[Acute Uncomplicated (without systemic symptoms) or Complicated (systemic symptoms)? @ -Default Side effects of treatment? @ -No Exacerbation, Progression, or Severe Exacerbation? @ -No Poses a threat to life or bodily function? How? (Chest pain, USA, CA, pneumonia, PE, COPD, DKA, ARF, appy, cholecystitis, CVA, Diverticulitis, Homicidal, Suicidal, threat to staff... and all critical care pts) @ -yes ACS - Lab Data Result diagrams: 12/30/24 14:14 12/30/24 14:14 Lab Results 12/30/24 12/30/24 12/30/24 Range/Units 14:14 14:14 14:14 WBC 15.9 H (3.8-10.6) k/uL RBC 5.39 (4.30-5.90) m/uL Hgb 17.7 H (13.0-17.5) gm/dL Hct 53.9 H (39.0-53.0) % MCV 100.1 H (80.0-100.0) fL MCH 32.8 (25.0-35.0) pg MCHC 32.8 (31.0-37.0) g/dL RDW 12.9 (11.5-15.5) % Plt Count 340 (150-450) k/uL MPV 8.7 Neutrophils % 85 % Lymphocytes % 9 % Monocytes % 4 % Eosinophils % 1 % Basophils % 0 % Neutrophils # 13.5 H (1.3-7.7) k/uL Lymphocytes # 1.4 (1.0-4.8) k/uL Monocytes # 0.7 (0-1.0) k/uL Eosinophils # 0.2 (0-0.7) k/uL Basophils # 0.1 (0-0.2) k/uL PT 11.4 (10.0-12.5) sec INR 1.0 (<1.2) APTT 24.5 (22.0-30.0) sec Sodium 136 L (137-145) mmol/L Potassium 4.4 (3.5-5.1) mmol/L Chloride 95 L (98-107) mmol/L Carbon Dioxide 27 (22-30) mmol/L Anion Gap 14 mmol/L BUN 16 (9-20) mg/dL Creatinine 1.05 (0.66-1.25) mg/dL Est GFR (CKD-EPI)AfAm >90 (>60 ml/min/1.73 sqM) Est GFR (CKD-EPI)NonAf 81 (>60 ml/min/1.73 sqM) Glucose 124 H (74-99) mg/dL Calcium 9.6 (8.4-10.2) mg/dL Magnesium 1.9 (1.6-2.3) mg/dL Total Bilirubin 0.8 (0.2-1.3) mg/dL AST 19 (17-59) U/L ALT 29 (4-49) U/L Alkaline Phosphatase 86 (38-126) U/L Troponin I (0.000-0.034) ng/mL Total Protein 7.1 (6.3-8.2) g/dL Albumin 4.3 (3.5-5.0) g/dL Influenza Type A (PCR) (Not Detectd) Influenza Type B (PCR) (Not Detectd) RSV (PCR) (Not Detectd) SARS-CoV-2 (PCR) (Not Detectd) 12/30/24 12/30/24 Range/Units 14:14 14:32 WBC (3.8-10.6) k/uL RBC (4.30-5.90) m/uL Hgb (13.0-17.5) gm/dL Hct (39.0-53.0) % MCV (80.0-100.0) fL MCH (25.0-35.0) pg MCHC (31.0-37.0) g/dL RDW (11.5-15.5) % Plt Count (150-450) k/uL MPV Neutrophils % % Lymphocytes % % Monocytes % % Eosinophils % % Basophils % % Neutrophils # (1.3-7.7) k/uL Lymphocytes # (1.0-4.8) k/uL Monocytes # (0-1.0) k/uL Eosinophils # (0-0.7) k/uL Basophils # (0-0.2) k/uL PT (10.0-12.5) sec INR (<1.2) APTT (22.0-30.0) sec Sodium (137-145) mmol/L Potassium (3.5-5.1) mmol/L Chloride (98-107) mmol/L Carbon Dioxide (22-30) mmol/L Anion Gap mmol/L BUN (9-20) mg/dL Creatinine (0.66-1.25) mg/dL Est GFR (CKD-EPI)AfAm (>60 ml/min/1.73 sqM) Est GFR (CKD-EPI)NonAf (>60 ml/min/1.73 sqM) Glucose (74-99) mg/dL Calcium (8.4-10.2) mg/dL Magnesium (1.6-2.3) mg/dL Total Bilirubin (0.2-1.3) mg/dL AST (17-59) U/L ALT (4-49) U/L Alkaline Phosphatase (38-126) U/L Troponin I <0.012 (0.000-0.034) ng/mL Total Protein (6.3-8.2) g/dL Albumin (3.5-5.0) g/dL Influenza Type A (PCR) Not Detected (Not Detectd) Influenza Type B (PCR) Not Detected (Not Detectd) RSV (PCR) Not Detected (Not Detectd) SARS-CoV-2 (PCR) Not Detected (Not Detectd) Disposition Clinical Impression: Chest pain Disposition: ADMITTED IP TO THIS [facility] Condition: Stable Is patient prescribed a controlled substance at d/c from ED?: No Referrals: Tristin Phillips DO [Primary Care Provider] - 1-2 days Time of Disposition: 16:18
[2024-12-30] MEDS: METOPROLOL TARTRATE 50 MG TAB PO SCH (16:59)
[2024-12-30] MEDS: hydrALAZINE HCL 25 MG TAB PO SCH (16:59)
[2024-12-30] MEDS: ENOXAPARIN 40 MG/0.4 ML SYRINGE SQ SCH (17:00)
[2024-12-30] MEDS ORDERED: NITROGLYCERIN SL TABS 0.4 MG TAB SUBLINGUAL PRN (17:00)
[2024-12-30] MEDS: SODIUM CHLORIDE 0.9% 1,000 ML IV SCH (17:01)
[2024-12-30] MEDS ORDERED: DEXTROSE 50% SYRINGE 50 ML IVP PRN ×2 (17:04)
[2024-12-30] MEDS: INSULIN LISPRO (HumaLOG) 100 UNIT/ML 10 mL VL SQ SCH (17:29)
[2024-12-30 17:30] LABS: Glucose,Whole Blood 96 mg/dL (70-110)
[2024-12-30] MEDS ORDERED: ALBUTEROL NEBULIZED 2.5 MG/3 ML INHALATION PRN (17:33)
[2024-12-30] MEDS: ACETAMINOPHEN TAB 325 MG TAB PO PRN (17:40)
--- NOTE | 2024-12-30 17:41 | P.HPIM ---
History of Present Illness H&P Date: 12/30/24 I have seen and evaluated the patient today. Discussed with the resident and agree with the residents finding and plan as documented in the resident's note. 54-year-old male with history of CAD, reported heart failure, history of CVA with no residual deficits, poorly controlled diabetes, HLD, HTN, history of chronic back and neck pain following with pain specialist, coming in for evalua tion of chest pain, EKG and troponins negative. Will be admitted for observation, cardiology evaluation. He's chest pain free during evaluation. Patient was started on aspirin but he was not taking at home for unknown reason, statins increased to high intensity due to history of DVT, previously was on 10 mg daily, continued on beta-blockers. Patient's antihypertensive regimen will need to be reevaluated Patient is a 54-year-old male with asthma, CAD, heart failure, CVA/TIA (no re siduals), diabetes, GERD, hyperlipidemia, hypertension, CKD, sleep apnea (uses CPAP), fibromyalgia, hypothyroidism, anxiety, depression here for evaluation of chest pain. Patient reported that he has been experiencing sharp constant chest pain since yesterday evening that is nonradiating on the left side of his chest with a maximum intensity of 9 out of 10. Currently he does not mention any ches t pain. He reported associated lower back pain, sweats. He also reported that when he checked his blood pressure at home it was very high but he cannot recall the numbers. He tried to relieve the chest pain by taking his home medications but the chest pain persisted which led him to seek care. Denies shortness of breath, cough, fever, chills, extremity swelling, calf pain, palpitations, lightheadedness, dizziness, nausea, abdominal pain, recent illness, or recent hospitalization. He mentions he had a cold about a week ago. On admission, EKG showed sinus tachycardia with a rate of 104, left axis deviation, no ST-T changes, QTc 370 MS. Chest x-ray showed no acute cardiopulmonary process/disease Labs on admission showed WBC 15.9, hemoglobin 17.7, MCV 100.1, platelet count 340,000, PT 11.4, INR 1, PTT 24.5, sodium 136, potassium 4.4, chloride 95, bicarb 27, BUN 16, creatinine 1.05, glucose 124, calcium 9.6, magnesium 1.9, total bilirubin 0.8, AST 19, ALT 29, alk phos 86, troponin less than 0.0 12, albumin 4.3. Cepheid 4 negative. Vitals on admission were temperature 97.5, pulse rate 105, respiratory 18, blood pressure 150/98, O2 saturation 96% on room air ED documentation reviewed. High-dose aspirin, Dilaudid given in the ED. Review of systems: Pertinent positives and negatives as discussed in HPI, a complete review of systems was performed and all other systems are negative. Social history: Tobacco: Former smoker. Smoked 1/2 pack/day for 35 years. Alcohol: Former alcohol use. Last drink in 2019 Recreational drugs: Denies illicit or recreational drug use Travel: No recent travel Physical examination: Vital signs reviewed General: non toxic, no distress, appears at stated age, on room air Derm: no unusual rashes/lesions, warm Head: atraumatic, normocephalic, symmetric Eyes: EOMI, anicteric sclera, pupils equal round reactive to light ENT: Nose and ears atraumatic Neck: No cervical lymphadenopathy, trachea midline, supple Mouth: no lip lesion, mucus membranes moist Cardiovascular: S1S2 reg, no murmur Lungs: CTA bilateral, no rhonchi, no rales, no accessory muscle use Abdominal: soft, nondistended, nontender to palpation, no guarding Ext: muscle strength 5 out of 5 in all 4 extremities grossly, no gross muscle atrophy, no contractures, positive dorsalis pedis pulse bilateral, no edema Neuro: CN II-XI grossly intact, no gross focal neuro deficits Psych: Alert and oriented x 3, appropriate affect and mood Assessment/Plan: 54-year-old male with CAD, CVA/TIA, hypertension, hyperlipidemia, diabetes, CKD here for evaluation of chest pain. #. Chest pain, r/o ACS -Troponin less than 0.0 12 -EKG showed sinus tachycardia with a rate of 104, left axis deviation, no ST-T changes, QTc 370 MS -Chest x-ray showed no acute cardiopulmonary process/disease -Cardiac monitoring -Supplemental oxygen as needed -Heart healthy diet -Trend troponin -EKG as needed -Lipid panel -Initiate nitroglycerin prn for chest pain. 0.4 mg sublingual -Given aspirin 325 mg once in the ED -Continue with aspirin 81 mg daily -Continue lipitor 80 mg daily -Metoprolol tartarate 50 mg PO twice daily -Cardiology consulted #. Leukocytosis -Likely reactive -Patient has had a known history of elevated WBC and follows with Dr. Luna -Patient afebrile and hemodynamically stable -Will monitor CBC for now #. Hyponatremia -Sodium 136 -Patient hemodynamically stable -Monitor BMP Chronic Conditions: #. Diabetes mellitus -Check Hemoglobin A1c -Hold home antihyperglycemic medications -Initiate Lantus 22 units nightly -Glucose Accu-Cheks ACHS -Initiate Insulin sliding scale ACHS -Monitor for hypoglycemia #. Asthma #. Heart failure #. CVA/TIA (no residuals) #. GERD #. Hyperlipidemia #. Hypertension #. CKD #. Sleep apnea (uses CPAP) #. Fibromyalgia #. Hypothyroidism #. Anxiety #. Depression -On hydralazine 50mg TID and prazosin PO. Optimize BP meds on discharge -Monitor BP -Continue use of CPAP at night F: encourage oral intake E: Monitor sodium N: Heart healthy diet A: Can self ambulate DVT ppx: Lovenox 40 mg SQ daily Dispo: The patient is admitted with an anticipated less than 2 midnight stay for evaluation of chest pain CODE STATUS: Full Discussed with: Patient Anticipated discharge place: Home Ophelia Urbina MD PGY-1 IM Dictation was produced using [employer] dictation software. please excuse any grammatical, word or spelling errors. Past Medical History Past Medical History: Asthma, Coronary Artery Disease (CAD), Chest Pain / Angina, Heart Failure, CVA/TIA, Diabetes Mellitus, Eye Disorder, GERD/Reflux, Hyperlipidemia, Hypertension, Liver Disease, Musculoskeletal Disorder, Prostate Disorder, Renal Disease, Skin Disorder, Sleep Apnea/CPAP/BIPAP, Thyroid Disorder, Vascular Disorder Additional Past Medical History / Comment(s): TMJ, sinus problems, eczema, kidney stones, diverticulitis, back pain w/ DDD, physical limitations, numbness and tingling in bilateral hands, hx skin cancer, hyperflexia, slight cataracts, hx CVA 11/2018-no residual effects, hx of elevated WBC's-sees Dr. Luna-states just normal for him, PVD, Kidney Disease Stage 3, fatty liver, uses CPAP, fibromyalgia, arthritis, nasal polyps, bronchitis, snoring, pneumonia History of Any Multi-Drug Resistant Organisms: None Reported Past Surgical History: Adenoidectomy, Hernia Repair, Orthopedic Surgery, To nsillectomy Additional Past Surgical History / Comment(s): Urolift, wart on uvula removed, pain clinic procedures, Lt. knee arthroscopy X2, varicose vein procedure, bilat. CTR, Lt. wrist surgery, Bilat. elbow surgery, cervical fusion Past Anesthesia/Blood Transfusion Reactions: No Reported Reaction Additional Past Anesthesia/Blood Transfusion Reaction / Comment(s): Hard to wake up. Past Psychological History: Anxiety, Depression Smoking Status: Former smoker Past Alcohol Use History: None Reported Past Drug Use History: None Reported - Past Family History Mother Family Medical History: Cancer, Deep Vein Thrombosis (DVT) Father Family Medical History: Cancer, Chest Pain / Angina, Congestive Heart Failure (CHF), Diabetes Mellitus, Sleep Apnea/CPAP/BIPAP Additional Family Medical History / Comment(s): BRONCHITIS, PNEUMONIA, LUNG, SLEEP APNEA, CANCER, INSOMNIA, ULCERS, DIABETES, ANEMIA, RESTLESS LEGS Medications and Allergies Home Medications Medication Instructions Recorded Confirmed Type DULoxetine HCL [Cymbalta] 60 mg PO HS 12/31/14 12/30/24 History Levothyroxine Sodium [Synthroid] 88 mcg PO DAILY 11/17/18 12/30/24 History Dicyclomine HCl 20 mg PO TID 01/06/21 12/30/24 History Metoprolol Tartrate [Lopressor] 50 mg PO BID 02/04/21 12/30/24 History allopurinoL [Zyloprim] 200 mg PO DAILY 06/02/21 12/30/24 History Empagliflozin [Jardiance] 10 mg PO DAILY 11/25/22 12/30/24 History Pantoprazole [Protonix] 40 mg PO BID 01/21/23 12/30/24 History Famotidine 40 mg PO HS 02/21/24 12/30/24 History Prazosin [Minipress] 2 mg PO HS 02/21/24 12/30/24 History metFORMIN HCL ER [Glucophage XR] 500 mg PO BID 02/21/24 12/30/24 History Pregabalin [Lyrica] 100 mg PO TID 30 Days #90 cap 12/11/24 12/30/24 Rx Acetaminophen-Codeine 300-30mg 1 tab PO TID 12/30/24 12/30/24 History [Tylenol w/codeine #3] Albuterol Sulfate [Albuterol 2 puff INHALATION RT-Q6H PRN 12/30/24 12/30/24 History Sulfate Hfa] Atorvastatin [Lipitor] 10 mg PO HS 12/30/24 12/30/24 History Baclofen [Lioresal] 10 mg PO BID 12/30/24 12/30/24 History Colestipol HCl 2 gm PO DAILY 12/30/24 12/30/24 History Insulin Glargine,Hum.rec.anlog 22 units SQ DAILY 12/30/24 12/30/24 History [Lantus Solostar Pen] Semaglutide [Ozempic] 2 mg SQ WE 12/30/24 12/30/24 History hydrALAZINE HCL [Apresoline] 50 mg PO TID 12/30/24 12/30/24 History Allergies Allergy/AdvReac Type Severity Reaction Status Date / Time adhesive tape Allergy Rash/Hives Verified 12/30/24 16:50 cefaclor [From Ceclor] Allergy Rash/Hives Verified 12/30/24 16:50 dapagliflozin [From Farxiga] Allergy yeast Verified 12/30/24 16:50 infections Iodinated Contrast Media Allergy Rash/Hives,throat Verified 12/30/24 16:50 [Iodinated Contrast Media - swelling IV Dye] propoxyphene napsylate Allergy Rash/Hives Verified 12/30/24 16:50 [From Darvocet-N 100] Sulfa (Sulfonamide Allergy Dyspnea, Verified 12/30/24 16:50 Antibiotics) rapid heart rate sulfamethoxazole Allergy Rapid Verified 12/30/24 16:50 [From Bactrim] Heart Rate, Shortness of breath trimethoprim [From Bactrim] Allergy Rapid Verified 12/30/24 16:50 Heart Rate, Shortness of breath Physical Exam Vitals: Vital Signs Temp Pulse Resp BP Pulse Ox 12/30/24 16:28 97 20 184/114 95 12/30/24 13:58 97.5 F L 105 H 18 150/98 96 Intake and Output 12/30/24 12/30/24 12/30/24 06:59 14:59 22:59 Other: Weight 95.254 kg Results CBC & Chem 7: 12/30/24 14:14 12/30/24 14:14 Labs: Abnormal Lab Results - Last 24 Hours (Table) 12/30/24 12/30/24 Range/Units 14:14 14:14 WBC 15.9 H (3.8-10.6) k/uL Hgb 17.7 H (13.0-17.5) gm/dL Hct 53.9 H (39.0-53.0) % MCV 100.1 H (80.0-100.0) fL Neutrophils # 13.5 H (1.3-7.7) k/uL Sodium 136 L (137-145) mmol/L Chloride 95 L (98-107) mmol/L Glucose 124 H (74-99) mg/dL Thrombosis Risk Factor Assmnt - DVT/VTE Prophylaxis DVT/VTE Prophylaxis: Pharmacologic Prophylaxis ordered - Choose All That Apply Any of the Below Risk Factors Present?: Yes Each Factor Represents 1 point: Age 41-60 years, Obesity (BMI >25) Each Risk Factor Represents 3 Points: Family history of DVT/PE Thrombosis Risk Factor Assessment Total Risk Factor Score: 5 Thrombosis Risk Factor Assessment Level: High Risk
[2024-12-30] MEDS: PREGABALIN 100 MG CAP PO SCH (18:09)
[2024-12-30 20:45] LABS: Glucose,Whole Blood 116 mg/dL (70-110)
[2024-12-30] MEDS: ATORVASTATIN 80 MG TAB PO SCH (21:49)
[2024-12-30] MEDS: FAMOTIDINE 20 MG TAB PO SCH (21:49)
[2024-12-30] MEDS: cloNIDine HCL 0.1 MG TAB PO STA (21:49)
[2024-12-30] MEDS: hydrALAZINE HCL 50 MG TAB PO SCH (21:49)
[2024-12-30] MEDS: DULoxetine HCL 60 MG CAPSULE.DR PO SCH (21:50)
[2024-12-30] MEDS: Acetaminophen-Codeine 300-30mg TAB PO SCH (21:50)
[2024-12-30] MEDS: INSULIN GLARGINE (LANTUS) 100 UNIT/ML SYR SQ SCH (21:51)
[2024-12-30] MEDS: DICYCLOMINE 20 MG TAB PO SCH (21:51)
[2024-12-31 05:16] LABS: Glucose,Whole Blood 149 mg/dL (70-110)
[2024-12-31] MEDS: LEVOTHYROXINE 88 MCG TAB PO SCH (05:40)
[2024-12-31] MEDS: HYDROmorphone 0.5 MG/0.5 ML SYRINGE IVP PRN (05:55)
[2024-12-31] MEDS: ASPIRIN 81 MG PO SCH (08:45)
[2024-12-31] MEDS: allopurinoL 100 MG TAB PO SCH (08:45)
[2024-12-31 11:58] LABS: Chol/HDL Ratio 3.31 Ratio
[2024-12-31 12:44] LABS: Glucose,Whole Blood 109 mg/dL (70-110)
--- NOTE | 2024-12-31 16:57 | P.CRDCN ---
History of Present Illness Consult date: 12/31/24 Consult reason: chest pain Chief complaint: Chest pain History of present illness: History of present illness: Patient is a pleasant 54-year-old male with significant past medical history of diabetes type 2, hyperlipidemia, hypertension, anxiety, history of stroke who presented with complaints of chest pain. He does follow with Dr. Harper in the office. He states that 2 days ago he developed a headache, backache and chest pain. He did have a recent upper respiratory infection and was on steroids and antibiotics last week. His blood pressure has been high at home. He was feeling clammy and nauseous with his chest and back pain. Labs reviewed: WBC 15.9, hemoglobin 17.7, creatinine 1.05, A1c 6.5, troponin negative x 3. EKG shows sinus tachycardia. Chest x-ray with no acute findings. It is noted that he had a Lexiscan stress test 01/10/2024 in the office that was negative. Prior echocardiogram 2020 with a EF 55%. He is still complaining of his head pounding, chest and back pain 8 out of 10 and requesting narcotics. He reports having minimal relief with narcotics. He does have chest tenderness on exam. He is having lower back pain. He takes T3's at home for chronic pain. REVIEW OF SYSTEMS: No fever or chills. No cough or expectoration. No diaphoresis. Patient denies headache, dizziness, blurred vision, double vision. Patient denies any stomach discomfort. No nausea, vomiting. No hematochezia. No hematemesis. Denies any black stools or blood in his stools. Denies dysuria or hematuria. No muscle weakness or numbness. No chest pain or pressure. PHYSICAL EXAMINATION: This is a 54-year-old male in no apparent distress at the time of my examination. HEENT: Head is atraumatic, normocephalic. Pupils are equal, round. Sclerae anicteric. Conjunctivae are clear. Mucous membranes of the mouth are moist. Neck is supple. There is no jugular venous distention. No carotid bruit is heard. CHEST EXAMINATION: Lungs are clear to auscultation. + chest wall tenderness is noted on palpation. HEART EXAMINATION: Heart regular rate and rhythm. S1, S2 heard. No murmurs, gallops or rub. ABDOMEN: Soft, nontender. Bowel sounds are heard. EXTREMITIES: 2+ peripheral pulses with no evidence of peripheral edema and no calf tenderness noted. NEUROLOGIC EXAMINATION: Patient is awake, alert and oriented x3. IMPRESSION AND PLAN: Diabetes type 2 Hyperlipidemia Hypertension Anxiety Chest pain History of stroke Back pain Headache Leukocytosis PLAN: We will check stress echo tomorrow to rule out inducible ischemia as he is having continued pain. Continue with current medications. Further recomm endations pending clinical course. I am dictating on behalf of Dr. Calvin Granados's history/physical and assessment/plan. Past Medical History Past Medical History: Asthma, Coronary Artery Disease (CAD), Chest Pain / Angina, Heart Failure, CVA/TIA, Diabetes Mellitus, Eye Disorder, GERD/Reflux, Hyperlipidemia, Hypertension, Liver Disease, Musculoskeletal Disorder, Prostate Disorder, Renal Disease, Skin Disorder, Sleep Apnea/CPAP/BIPAP, Thyroid Disorder , Vascular Disorder Additional Past Medical History / Comment(s): TMJ, sinus problems, eczema, kidney stones, diverticulitis, back pain w/ DDD, physical limitations, numbness and tingling in bilateral hands, hx skin cancer, hyperflexia, slight cataracts, hx CVA 11/2018-no residual effects, hx of elevated WBC's-sees Dr. Luna-states just normal for him, PVD, Kidney Disease Stage 3, fatty liver, uses CPAP, fibromyalgia, arthritis, nasal polyps, bronchitis, snoring, pneumonia History of Any Multi-Drug Resistant Organisms: None Reported Past Surgical History: Adenoidectomy, Hernia Repair, Orthopedic Surgery, Tonsillectomy Additional Past Surgical History / Comment(s): Urolift, wart on uvula removed, pain clinic procedures, Lt. knee arthroscopy X2, varicose vein procedure, bilat. CTR, Lt. wrist surgery, Bilat. elbow surgery, cervical fusion Past Anesthesia/Blood Transfusion Reactions: No Reported Reaction Additional Past Anesthesia/Blood Transfusion Reaction / Comment(s): Hard to wake up. Past Psychological History: Anxiety, Depression Additional Psychological History / Comment(s): . Has custody of his 3 daughters. Positive tobacco use. No notation of significant alcohol or recr eational drug use. No experience. Has worked as a oseguera. No international travel. No animal exposures Smoking Status: Former smoker Past Alcohol Use History: None Reported Additional Past Alcohol Use History / Comment(s): SMOKED 1/2-1PPD SINCE AGE 16, QUIT 11/04/20. No alcohol since 2019. Past Drug Use History: None Reported - Past Family History Mother Family Medical History: Cancer, Deep Vein Thrombosis (DVT) Father Family Medical History: Cancer, Chest Pain / Angina, Congestive Heart Failure (CHF), Diabetes Mellitus, Sleep Apnea/CPAP/BIPAP Additional Family Medical History / Comment(s): BRONCHITIS, PNEUMONIA, LUNG, SLEEP APNEA, CANCER, INSOMNIA, ULCERS, DIABETES, ANEMIA, RESTLESS LEGS Medications and Allergies Home Medications Medication Instructions Recorded Confirmed Type DULoxetine HCL [Cymbalta] 60 mg PO HS 12/31/14 12/30/24 History Levothyroxine Sodium [Synthroid] 88 mcg PO DAILY 11/17/18 12/30/24 History Dicyclomine HCl 20 mg PO TID 01/06/21 12/30/24 History Metoprolol Tartrate [Lopressor] 50 mg PO BID 02/04/21 12/30/24 History allopurinoL [Zyloprim] 200 mg PO DAILY 06/02/21 12/30/24 History Empagliflozin [Jardiance] 10 mg PO DAILY 11/25/22 12/30/24 History Pantoprazole [Protonix] 40 mg PO BID 01/21/23 12/30/24 History Famotidine 40 mg PO HS 02/21/24 12/30/24 History Prazosin [Minipress] 2 mg PO HS 02/21/24 12/30/24 History metFORMIN HCL ER [Glucophage XR] 500 mg PO BID 02/21/24 12/30/24 History Pregabalin [Lyrica] 100 mg PO TID 30 Days #90 cap 12/11/24 12/30/24 Rx Acetaminophen-Codeine 300-30mg 1 tab PO TID 12/30/24 12/30/24 History [Tylenol w/codeine #3] Albuterol Sulfate [Albuterol 2 puff INHALATION RT-Q6H PRN 12/30/24 12/30/24 History Sulfate Hfa] Atorvastatin [Lipitor] 10 mg PO HS 12/30/24 12/30/24 History Baclofen [Lioresal] 10 mg PO BID 12/30/24 12/30/24 History Colestipol HCl 2 gm PO DAILY 12/30/24 12/30/24 History Insulin Glargine,Hum.rec.anlog 22 units SQ DAILY 12/30/24 12/30/24 History [Lantus Solostar Pen] Semaglutide [Ozempic] 2 mg SQ WE 12/30/24 12/30/24 History hydrALAZINE HCL [Apresoline] 50 mg PO TID 12/30/24 12/30/24 History Allergies Allergy/AdvReac Type Severity Reaction Status Date / Time adhesive tape Allergy Rash/Hives Verified 12/30/24 16:50 cefaclor [From Ceclor] Allergy Rash/Hives Verified 12/30/24 16:50 dapagliflozin [From Farxiga] Allergy yeast Verified 12/30/24 16:50 infections Iodinated Contrast Media Allergy Rash/Hives,throat Verified 12/30/24 16:50 [Iodinated Contrast Media - swelling IV Dye] propoxyphene napsylate Allergy Rash/Hives Verified 12/30/24 16:50 [From Darvocet-N 100] Sulfa (Sulfonamide Allergy Dyspnea, Verified 12/30/24 16:50 Antibiotics) rapid heart rate sulfamethoxazole Allergy Rapid Verified 12/30/24 16:50 [From Bactrim] Heart Rate, Shortness of breath trimethoprim [From Bactrim] Allergy Rapid Verified 12/30/24 16:50 Heart Rate, Shortness of breath Physical Exam Vitals: Vital Signs Temp Pulse Pulse Resp BP BP Pulse Ox 12/31/24 07:00 98.0 F 99 15 133/91 98 12/31/24 02:00 98.2 F 69 17 136/91 94 L 12/30/24 20:37 97.8 F 108 H 18 161/98 93 L 12/30/24 20:07 97.8 F 100 19 176/111 96 12/30/24 19:28 106 H 18 168/107 95 12/30/24 19:00 99 18 170/108 95 12/30/24 18:09 110 H 19 170/110 96 12/30/24 17:36 103 H 18 170/108 97 12/30/24 16:28 97 20 184/114 95 12/30/24 13:58 97.5 F L 105 H 18 150/98 96 Intake and Output 12/30/24 12/31/24 12/31/24 22:59 06:59 14:59 Other: Voiding Method Toilet Toilet # Voids 1 2 Weight 95.254 kg Results 12/30/24 14:14 12/30/24 14:14 Cardiac Enzymes 12/30/24 12/30/24 12/30/24 Range/Units 14:14 14:14 19:06 AST 19 (17-59) U/L Troponin I <0.012 <0.012 (0.000-0.034) ng/mL 12/30/24 Range/Units 23:11 AST (17-59) U/L Troponin I <0.012 (0.000-0.034) ng/mL Coagulation 12/30/24 Range/Units 14:14 PT 11.4 (10.0-12.5) sec APTT 24.5 (22.0-30.0) sec CBC 12/30/24 Range/Units 14:14 WBC 15.9 H (3.8-10.6) k/uL RBC 5.39 (4.30-5.90) m/uL Hgb 17.7 H (13.0-17.5) gm/dL Hct 53.9 H (39.0-53.0) % Plt Count 340 (150-450) k/uL Comprehensive Metabolic Panel 12/30/24 Range/Units 14:14 Sodium 136 L (137-145) mmol/L Potassium 4.4 (3.5-5.1) mmol/L Chloride 95 L (98-107) mmol/L Carbon Dioxide 27 (22-30) mmol/L BUN 16 (9-20) mg/dL Creatinine 1.05 (0.66-1.25) mg/dL Glucose 124 H (74-99) mg/dL Calcium 9.6 (8.4-10.2) mg/dL AST 19 (17-59) U/L ALT 29 (4-49) U/L Alkaline Phosphatase 86 (38-126) U/L Total Protein 7.1 (6.3-8.2) g/dL Albumin 4.3 (3.5-5.0) g/dL Current Medications Generic Name Dose Route Start Last Admin Trade Name Freq PRN Reason Stop Dose Admin Acetaminophen 650 mg 12/30/24 16:19 12/30/24 17:40 Acetaminophen Tab 325 Mg Tab PO 650 mg Q6HR PRN Administration Mild Pain or Fever > 100.5 Acetaminophen/Codeine Phosphate 1 each 12/30/24 22:00 12/31/24 08:44 Acetaminophen-Codeine 300-30mg Tab PO 1 each TID LAN Administration Albuterol Sulfate 2.5 mg 12/30/24 17:33 Albuterol Nebulized 2.5 Mg/3 Ml INHALATION RT-Q6H PRN Shortness Of Breath Allopurinol 200 mg 12/31/24 09:00 12/31/24 08:45 Allopurinol 100 Mg Tab PO 200 mg DAILY LAN Administration Aspirin 81 mg 12/31/24 09:00 12/31/24 08:45 Aspirin 81 Mg PO 81 mg DAILY LAN Administration Atorvastatin Calcium 80 mg 12/30/24 21:00 12/30/24 21:49 Atorvastatin 80 Mg Tab PO 80 mg HS LAN Administration Dextrose/Water 25 ml 12/30/24 17:04 Dextrose 50% Syringe 50 Ml IVP PER PROTOCOL PRN Hypoglycemia Protocol Dextrose/Water 50 ml 12/30/24 17:04 Dextrose 50% Syringe 50 Ml IVP PER PROTOCOL PRN Hypoglycemia Protocol Dicyclomine HCl 20 mg 12/30/24 22:00 12/31/24 08:45 Dicyclomine 20 Mg Tab PO 20 mg TID LAN Administration Duloxetine HCl 60 mg 12/30/24 21:00 12/30/24 21:50 Duloxetine Hcl 60 Mg Capsule.Dr PO 60 mg HS LAN Administration Enoxaparin Sodium 40 mg 12/30/24 17:00 12/31/24 08:44 Enoxaparin 40 Mg/0.4 Ml Syringe SQ 40 mg DAILY LAN Administration Famotidine 40 mg 12/30/24 21:00 12/30/24 21:49 Famotidine 20 Mg Tab PO 40 mg HS LAN Administration Hydralazine HCl 50 mg 12/30/24 22:00 12/31/24 08:45 Hydralazine Hcl 50 Mg Tab PO 50 mg TID LAN Administration Hydromorphone HCl 0.5 mg 12/30/24 16:19 12/31/24 09:57 Hydromorphone 0.5 Mg/0.5 Ml Syringe IVP 0.5 mg Q3HR PRN Administration Moderate Pain (Scale 4 to 6) Sodium Chloride 1,000 mls @ 75 mls/hr 12/30/24 16:30 12/31/24 06:58 Saline 0.9% IV Not Given .[id number] [facility] Insulin Glargine 22 unit 12/30/24 21:00 12/30/24 21:51 Insulin Glargine (Lantus) 100 Unit/Ml Syr SQ Not Given HS [facility] Insulin Human Lispro 0 unit 12/30/24 17:30 12/31/24 07:00 Insulin Lispro (Humalog) 100 Unit/Ml 10 Ml Vl SQ Not Given ACHS [facility] Protocol Levothyroxine Sodium 88 mcg 12/31/24 06:30 12/31/24 05:40 Levothyroxine 88 Mcg Tab PO 88 mcg DAILY@0630 [facility] Administration Metoprolol Tartrate 50 mg 12/30/24 17:00 12/31/24 08:45 Metoprolol Tartrate 50 Mg Tab PO 50 mg BID [facility] Administration Naloxone HCl 0.2 mg 12/30/24 16:19 Naloxone 0.4 Mg/Ml 1 Ml Vial IV Q2M PRN Opioid Reversal Nitroglycerin 0.4 mg 12/30/24 17:00 Nitroglycerin Sl Tabs 0.4 Mg Tab SUBLINGUAL Q10M PRN Chest Pain Pregabalin 100 mg 12/30/24 17:45 12/31/24 08:45 Pregabalin 100 Mg Cap PO 100 mg TID [facility] Administration Intake and Output 12/30/24 12/31/24 12/31/24 22:59 06:59 14:59 Other: Voiding Method Toilet Toilet # Voids 1 2 Weight 95.254 kg 12/30/24 14:14 12/30/24 14:14
[2024-12-31 17:23] LABS: Glucose,Whole Blood 135 mg/dL (70-110)
--- NOTE | 2024-12-31 17:36 | P.PN ---
Subjective Progress Note Date: 12/31/24 Hospital Course: 54-year-old male with history of CAD, reported heart failure, history of CVA w ith no residual deficits, poorly controlled diabetes, HLD, HTN, history of chronic back and neck pain following with pain specialist, coming in for evaluation of chest pain, EKG and troponins negative. Will be admitted for observation, cardiology evaluation. He's chest pain free during evaluation. Patient was started on aspirin but he was not taking at home for unknown reason, statins increased to high intensity due to history of DVT, previously was on 10 mg daily, continued on beta-blockers. Patient's antihypertensive regimen will need to be reevaluated Cardiology recommended stress test. Triglycerides elevated at 172, LDL at goal 48, A1c elevated 6.5 Subjective: Complains of chronic back pain, denies chest pain today, denies shortness of Pertinent positives and negatives as discussed above, a complete review of systems was performed and all other systems are negative. Vitals Signs Reviewed. Physical examination: Vital signs reviewed General: non toxic, no distress, appears at stated age, on room air Derm: no unusual rashes/lesions, warm Head: atraumatic, normocephalic, symmetric Eyes: EOMI, anicteric sclera, pupils equal round reactive to light ENT: Nose and ears atraumatic Neck: No cervical lymphadenopathy, trachea midline, supple Mouth: no lip lesion, mucus membranes moist Cardiovascular: S1S2 reg, no murmur Lungs: CTA bilateral, no rhonchi, no rales, no accessory muscle use Abdominal: soft, nondistended, nontender to palpation, no guarding Ext: muscle strength 5 out of 5 in all 4 extremities grossly, no gross muscle atrophy, no contractures, positive dorsalis pedis pulse bilateral, no edema Neuro: CN II-XI grossly intact, no gross focal neuro deficits Psych: Alert and oriented x 3, appropriate affect and mood Data Reviewed Today: Pertinent Labs: As noted in hospital course Assessment and Plan:#. Chest pain, r/o ACS -Troponin less than 0.0 12 -EKG showed sinus tachycardia with a rate of 104, left axis deviation, no ST-T changes, QTc 370 MS -Chest x-ray showed no acute cardiopulmonary process/disease -Cardiac monitoring -Supplemental oxygen as needed -Heart healthy diet -Initiate nitroglycerin prn for chest pain. 0.4 mg sublingual -Given aspirin 325 mg once in the ED -Continue with aspirin 81 mg daily -Continue lipitor 80 mg daily -Metoprolol tartarate 50 mg PO twice daily -Cardiology consulted Leukocytosis -Likely reactive -Patient has had a known history of elevated WBC and follows with Dr. Luna -Patient afebrile and hemodynamically stable -Will monitor CBC for now Hyponatremia -Sodium 136 -Patient hemodynamically stable -Monitor BMP Chronic Conditions: Diabetes mellitus -Check Hemoglobin A1c, 6.5 -Hold home antihyperglycemic medications -Initiate Lantus 22 units nightly -Glucose Accu-Cheks ACHS -Initiate Insulin sliding scale ACHS -Monitor for hypoglycemia Asthma Heart failure CVA/TIA (no residuals) GERD Hyperlipidemia Hypertension hx CKD, now GFR 81 Sleep apnea (uses CPAP) Fibromyalgia Hypothyroidism Anxiety Depression -On hydralazine 50mg TID and prazosin PO. Optimize BP meds on discharge -Monitor BP -Continue use of CPAP at night DVT ppx: Lovenox 40 mg SQ daily Dispo: The patient is admitted with an anticipated less than 2 midnight stay for evaluation of chest pain CODE STATUS: Full Anticipated discharge place: Home, 01/01 if stress echo is clear Objective - Vital Signs Vital signs: Vital Signs Temp 97.5 F L 12/31/24 14:38 Pulse 104 H 12/31/24 14:38 Resp 17 12/31/24 14:38 BP 106/73 12/31/24 14:38 Pulse Ox 93 L 12/31/24 14:38 FiO2 Intake & Output 12/30/24 12/31/24 12/31/24 18:59 06:59 18:59 Weight 95.254 kg 95.254 kg Other: Voiding Method Toilet Toilet # Voids 2 4 - Labs CBC & Chem 7: 12/30/24 14:14 12/30/24 14:14 Labs: Abnormal Lab Results - Last 24 Hours (Table) 12/30/24 12/30/24 12/30/24 Range/Units 14:14 19:06 20:44 POC Glucose (mg/dL) 116 H (70-110) mg/dL Hemoglobin A1c 6.5 H (<=6.0) % Triglycerides 172.00 H (0.00-149.00) mg/dL HDL Cholesterol 35.60 L (40.00-60.00) mg/dL 12/31/24 12/31/24 Range/Units 05:15 17:21 POC Glucose (mg/dL) 149 H 135 H (70-110) mg/dL Hemoglobin A1c (<=6.0) % Triglycerides (0.00-149.00) mg/dL HDL Cholesterol (40.00-60.00) mg/dL
[2024-12-31 20:51] LABS: Glucose,Whole Blood 170 mg/dL (70-110)
[2025-01-01 05:49] LABS: Glucose,Whole Blood 216 mg/dL (70-110)
[2025-01-01 09:48] LABS: African American GFR (CKD) >90 (>60 ml/min/1.73 sqM); Anion Gap 11 mmol/L; Blood Urea Nitrogen 14 mg/dL (9-20); Calcium 9.4 mg/dL (8.4-10.2); Carbon Dioxide 27 mmol/L (22-30); Chloride 97 mmol/L (98-107); Glucose 150 mg/dL (74-99); Non-African American GFR(CKD) 88 (>60 ml/min/1.73 sqM); Potassium 4.7 mmol/L (3.5-5.1); Sodium 135 mmol/L (137-145)
--- NOTE | 2025-01-01 10:45 | P.PN ---
Subjective Progress Note Date: 01/01/25 Consult reason: chest pain Chief complaint: Chest pain History of present illness: History of present illness: Patient is a pleasant 54-year-old male with significant past medical history of diabetes type 2, hyperlipidemia, hypertension, anxiety, history of stroke who presented with complaints of chest pain. He does follow with Dr. Harper in the office. He states that 2 days ago he developed a headache, backache and chest p ain. He did have a recent upper respiratory infection and was on steroids and antibiotics last week. His blood pressure has been high at home. He was feeling clammy and nauseous with his chest and back pain. Labs reviewed: WBC 15.9, hemoglobin 17.7, creatinine 1.05, A1c 6.5, troponin negative x 3. EKG shows sinus tachycardia. Chest x-ray with no acute findings. It is noted that he had a Lexiscan stress test 01/10/2024 in the office that was negative. Prior echocardiogram 2020 with a EF 55%. He is still complaining of his head pounding, chest and back pain 8 out of 10 and requesting narcotics. He reports having minimal relief with narcotics. He does have chest tenderness on exam. Teddy anguiano is having lower back pain. He takes T3's at home for chronic pain. 01/01 Patient seen and examined. Patient is scheduled for stress echocardiogram today. Patient denies chest pain. He does complain of a headache and he thought his blood pressure was high but upon review, blood pressures are well- controlled. He denies any palpitations. No dizziness. Telemetry has been a sinus rhythm. Blood pressure 126/78, heart rate 113, pulse ox 94% on room air. Repeat blood work reveals potassium 4.7, BUN 14 creatinine 0.98. PHYSICAL EXAMINATION: This is a 54-year-old male in no apparent distress at the time of my examination. HEENT: Head is atraumatic, normocephalic. Pupils are equal, round. Sclerae anicteric. Conjunctivae are clear. Mucous membranes of the mouth are moist. Neck is supple. There is no jugular venous distention. No carotid bruit is heard. CHEST EXAMINATION: Lungs are clear to auscultation. + chest wall tenderness is noted on palpation. HEART EXAMINATION: Heart regular rate and rhythm. S1, S2 heard. No murmurs, gallops or rub. ABDOMEN: Soft, nontender. Bowel sounds are heard. EXTREMITIES: 2+ peripheral pulses with no evidence of peripheral edema and no calf tenderness noted. NEUROLOGIC EXAMINATION: Patient is awake, alert and oriented x3. IMPRESSION AND PLAN: Diabetes type 2 Hyperlipidemia Hypertension Anxiety Chest pain History of stroke Back pain Headache Leukocytosis PLAN: Obtain stress echocardiogram today Continue current cardiac medications If stress test is unremarkable, patient is cleared for discharge and may follow- up in the office in 1 to 2 weeks. Nurse practitioner note has been reviewed, I agree with documented findings and plan of care. Patient was seen and examined. Objective - Vital Signs Vital signs: Vital Signs Temp 98.6 F 01/01/25 02:41 Pulse 110 H 01/01/25 02:41 Resp 15 01/01/25 02:41 BP 111/74 01/01/25 02:41 Pulse Ox 94 L 01/01/25 02:41 FiO2 Intake & Output 12/31/24 01/01/25 01/01/25 18:59 06:59 18:59 Other: Voiding Method Toilet Toilet # Voids 4 2 # Bowel Movements 0 - Labs CBC & Chem 7: 12/30/24 14:14 01/01/25 09:15 Labs: Abnormal Lab Results - Last 24 Hours (Table) 12/30/24 12/31/24 12/31/24 Range/Units 14:14 17:21 20:48 POC Glucose (mg/dL) 135 H 170 H (70-110) mg/dL Triglycerides 172.00 H (0.00-149.00) mg/dL HDL Cholesterol 35.60 L (40.00-60.00) mg/dL 01/01/25 Range/Units 05:48 POC Glucose (mg/dL) 216 H (70-110) mg/dL Triglycerides (0.00-149.00) mg/dL HDL Cholesterol (40.00-60.00) mg/dL
[2025-01-01] MEDS ORDERED: CAFFEINE CITRATE 60 MG/3 ML VIAL IV PRN (11:34)
[2025-01-01] MEDS ORDERED: REGADENOSON 0.4 MG/5 ML SYRINGE IV PRN (11:34)
[2025-01-01] MEDS ORDERED: AMINOPHYLLINE 500 MG/20 ML VIAL IV PRN (11:34)
[2025-01-01] MEDS ORDERED: AMINOPHYLLINE 500 MG/20 ML VIAL IV ONE (14:05)
[2025-01-01 14:26] LABS: Glucose,Whole Blood 159 mg/dL (70-110)
[2025-01-01 15:37] LABS: Glucose,Whole Blood 201 mg/dL (70-110)
--- NOTE | 2025-01-01 17:29 | NM ---
EXAMINATION TYPE: NM stress lexiscan cardiolite DATE OF EXAM: 01/01/2025 COMPARISON: 11/21/2020 CLINICAL INDICATION: Male, 54 years old with history of chest pain; TECHNIQUE: After the intravenous administration of 10.1 mCi Tc 99m Sestamibi - Cardiolite resting SP ECT images acquired 102 minutes post injection. The patient received 0.4mg Lexiscan, 24 mCi Tc 99m Sestamibi - Stress images obtained 145 minutes pos t injection FINDINGS: Review of stress and rest SPECT images shows nondiagnostic inferior wall due to extensive adjacent GI activity and probably diaphragmatic attenuation artifact. Unable to exclude reversibility or fixed p erfusion defect here. Unable to assess augmentation of the inferior wall on gated analysis. Estimated left ventricular ejection fraction of 65 %. TID is upper limits of normal at 1.12. IMPRESSION: Combination of extensive GI activity and likely diaphragmatic attenuation artifact resulting in a non diagnostic inferior wall. Unable to exclude either inducible ischemia or old infarct here. No reversi bility seen along the remaining fried. [facility], , 01/01/2025 5:27 PM
--- NOTE | 2025-01-01 17:45 | P.PN ---
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 Patient reported that he has been experiencing sharp constant chest pain since yesterday evening that is nonradiating on the left side of his chest with a maximum intensity of 9 out of 10. Currently he does not mention any chest pain. He reported associated lower back pain, sweats. He also reported that when he checked his blood pressure at home it was very high but he cannot recall the numbers. He tried to relieve the chest pain by taking his home med ications but the chest pain persisted which led him to seek care. Denies shortness of breath, cough, fever, chills, extremity swelling, calf pain, palpitations, lightheadedness, dizziness, nausea, abdominal pain, recent illness, or recent hospitalization. He mentions he had a cold about a week ago. On admission, EKG showed sinus tachycardia with a rate of 104, left axis deviation, no ST-T changes, QTc 370 MS. Chest x-ray showed no acute cardiopulmonary process/disease Labs on admission showed WBC 15.9, hemoglobin 17.7, MCV 100.1, platelet count 340,000, PT 11.4, INR 1, PTT 24.5, sodium 136, potassium 4.4, chloride 95, bicarb 27, BUN 16, creatinine 1.05, glucose 124, calcium 9.6, magnesium 1.9, total bilirubin 0.8, AST 19, ALT 29, alk phos 86, troponin less than 0.0 12, albumin 4.3. Cepheid 4 negative. Vitals on admission were temperature 97.5, pulse rate 105, respiratory 18, blood pressure 150/98, O2 saturation 96% on room air 01/01/2025 patient seen and examined at bedside. No acute events overnight. No new complaints. Patient did not report chest pain overnight. Labs today show sodium 135, potassium 4.7, chloride 97, bicarb 27, BUN 14, creatinine 0.98, glucose 150, calcium 9.4. Lexiscan stress test reported as combination of extensive GI activity and likely diaphragmatic attenuation artifact resulting in nondiagnostic inferior wall, unable to exclude either inducible ischemia or old infarct, no reversibility seen among remaining fried. Repeat EKG today showed sinus tachycardia at 113 bpm, left axis deviation, no ST-T changes, QTc 455 MS. Review of systems: Pertinent positives and negatives as discussed in HPI, a complete review of systems was performed and all other systems are negative. Pertinent imaging and labs reviewed. Physical examination: Vital signs reviewed General: non toxic, no distress, appears at stated age Derm: no unusual rashes/lesions, warm Head: atraumatic, normocephalic, symmetric Eyes: EOMI, anicteric sclera, pupils equal round reactive to light ENT: Nose and ears atraumatic Neck: No cervical lymphadenopathy, trachea midline, supple Mouth: no lip lesion, mucus membranes moist Cardiovascular: S1S2 reg, no murmur Lungs: CTA bilateral, no rhonchi, no rales, no accessory muscle use Abdominal: soft, nontender to palpation, no guarding Ext: muscle strength 5 out of 5 in all 4 extremities grossly, no gross muscle atrophy, no contractures, positive dorsalis pedis pulse bilateral, no edema Neuro: CN II-XI grossly intact, no gross focal neuro deficits Psych: Alert and oriented x3, appropriate affect and mood Assessment/Plan: 54-year-old male with CAD, CVA/TIA, hypertension, hyperlipidemia, diabetes, CKD here for evaluation of chest pain. #. Chest pain, r/o ACS -Troponin less than 0.0 12 -Lexiscan stress test reported as combination of extensive GI activity and likely diaphragmatic attenuation artifact resulting in nondiagnostic inferior wall, unable to exclude either inducible ischemia or old infarct, no reversibility seen among remaining fried. -Repeat EKG today showed sinus tachycardia at 113 bpm, left axis deviation, no ST-T changes, QTc 455 MS. -Cardiac monitoring -Supplemental oxygen as needed -Heart healthy diet -Initiate nitroglycerin prn for chest pain. 0.4 mg sublingual -Given aspirin 325 mg once in the ED -Continue with aspirin 81 mg daily -Continue lipitor 80 mg daily -Metoprolol tartarate 50 mg PO twice daily -Cardiology consulted #. Leukocytosis -Likely reactive -Patient has had a known history of elevated WBC and follows with Dr. Luna -Patient afebrile and hemodynamically stable -Will monitor CBC for now #. Hyponatremia #. Hypochloremia -Sodium 135, chloride 97 -Likely due to dehydration -Patient hemodynamically stable -Encourage oral intake -Monitor BMP Chronic Conditions: #. Diabetes mellitus -Check Hemoglobin A1c 6.5 -Glucose 150 today -Hold home antihyperglycemic medications -Initiate Lantus 22 units nightly -Glucose Accu-Cheks ACHS -Initiate Insulin sliding scale ACHS -Monitor for hypoglycemia #. Asthma #. Heart failure #. CVA/TIA (no residuals) #. GERD #. Hyperlipidemia #. Hypertension #. Hx CKD, now GFR 81 #. Sleep apnea (uses CPAP) #. Fibromyalgia #. Hypothyroidism #. Anxiety #. Depression -On hydralazine 50mg TID and prazosin PO. Optimize BP meds on discharge -Monitor BP -Continue use of CPAP at night F: oral intake E: None for now N: Heart healthy diet A: Can self ambulate DVT prophylaxis: Lovenox 40 mg subcu daily Ophelia Urbina MD PGY-1/Display Trimmer Dictation was produced using [employer] dictation software. please excuse any grammatical, word or spelling errors. I have seen and evaluated the patient today. Discussed with the resident and agree with the residents finding and plan as documented in the resident's note. Changes highlighted in blue font. Objective - Vital Signs Vital signs: Vital Signs Temp 97.5 F L 01/01/25 06:58 Pulse 113 H 01/01/25 06:58 Resp 16 01/01/25 06:58 BP 126/78 01/01/25 06:58 Pulse Ox 94 L 01/01/25 06:58 FiO2 Intake & Output 12/31/24 01/01/25 01/01/25 18:59 06:59 18:59 Other: Voiding Method Toilet Toilet Toilet # Voids 4 2 # Bowel Movements 0 - Labs CBC & Chem 7: 12/30/24 14:14 01/01/25 09:15 Labs: Abnormal Lab Results - Last 24 Hours (Table) 12/30/24 12/31/24 12/31/24 Range/Units 14:14 17:21 20:48 Sodium (137-145) mmol/L Chloride (98-107) mmol/L Glucose (74-99) mg/dL POC Glucose (mg/dL) 135 H 170 H (70-110) mg/dL Triglycerides 172.00 H (0.00-149.00) mg/dL HDL Cholesterol 35.60 L (40.00-60.00) mg/dL 01/01/25 01/01/25 Range/Units 05:48 09:15 Sodium 135 L (137-145) mmol/L Chloride 97 L (98-107) mmol/L Glucose 150 H (74-99) mg/dL POC Glucose (mg/dL) 216 H (70-110) mg/dL Triglycerides (0.00-149.00) mg/dL HDL Cholesterol (40.00-60.00) mg/dL
[2025-01-01 17:49] LABS: Glucose,Whole Blood 161 mg/dL (70-110)
[2025-01-01] MEDS: PANTOPRAZOLE 40 MG TABLET PO SCH (17:51)
--- NOTE | 2025-01-01 17:59 | CA ---
Lexiscan Nuclear Stress Test Report Name: Antonio Fontana Exam Date: 01/01/2025 13:41 Exam Location: [place] Stress Ht (in): 65 Wt (lb): 210 BSA: 2.02 Ordering Phys: Shivani Bueno Referring Phys: MARY LOU Technologist: Ha Evans Age: 54 Gender: M : 1970 Procedure CPT: Indications: Reflex order-Stress test ICD-10 Codes: Patient History: CP, TERRI, PALP, HTN, DM, CVA, HIGH CHOL, FAMILY HX, TOB. Medications: Meds past 24 hrs: Pretest Chest Pain: STRESS TEST Lexiscan Protocol Exercise Duration (min:sec): 01:[address] Depressions (mm): Angina Score: 1 Siddiqui Score: Resting HR (bpm): 119 Peak HR (bpm): 153 Resting BP (mmHg): 135 / 101 Peak BP (mmHg): 196 / 104 MPHR: 166 Target HR: 141 % MPHR: 92 METS: 1.0 Total Dose: Peak Dose: Atropine: Double Product: 74558 BP Response: Stress Termination: INFUSION COMPLETE Stress Symptoms: VOMITING,CHEST PRESSURE Stress Summary: ECG ANALYSIS Resting ECG: Sinus tachycardia. Normal conduction. No arrhythmias. Nonspecific ST-T abnormality. Stress ECG: No ECG changes from baseline with Lexiscan infusion. CONCLUSIONS No ECG evidence of ischemia with Lexiscan infusion. Nuclear test results to follow. Dr. Flash Gonzalez MD (Electronically Signed) Final Date: 01 January 2025 17:58
[2025-01-01 20:27] LABS: Glucose,Whole Blood 163 mg/dL (70-110)
[2025-01-02 05:47] LABS: Glucose,Whole Blood 183 mg/dL (70-110)
[2025-01-02 06:07] LABS: Basophils % (A) 0 %; Eosinophils # (A) 0.1 k/uL (0-0.7); Eosinophils % (A) 1 %; HCT 49.5 % (39.0-53.0); HGB 15.7 gm/dL (13.0-17.5); Lymphocytes # (A) 1.1 k/uL (1.0-4.8); Lymphocytes % (A) 9 %; MCH 32.1 pg (25.0-35.0); MCHC 31.7 g/dL (31.0-37.0); MCV 101.1 fL (80.0-100.0); Mean Platelet Volume 8.5; Monocytes % (A) 8 %; Neutrophils # (A) 9.8 k/uL (1.3-7.7); Neutrophils % (A) 80 %; Platelet Count 305 k/uL (150-450); RDW 12.8 % (11.5-15.5); WBC 12.3 k/uL (3.8-10.6)
[2025-01-02 06:17] LABS: African American GFR (CKD) >90 (>60 ml/min/1.73 sqM); Anion Gap 12 mmol/L; Blood Urea Nitrogen 12 mg/dL (9-20); Calcium 9.5 mg/dL (8.4-10.2); Carbon Dioxide 26 mmol/L (22-30); Chloride 95 mmol/L (98-107); Glucose 177 mg/dL (74-99); Non-African American GFR(CKD) >90 (>60 ml/min/1.73 sqM); Potassium 4.3 mmol/L (3.5-5.1); Sodium 133 mmol/L (137-145)
[2025-01-02 08:19] VITALS: BP 147/98; PULSE 98; RESP 16; TEMP 98
--- NOTE | 2025-01-02 12:09 | P.DS ---
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 On admission, EKG showed sinus tachycardia with a rate of 104, left axis deviation, no ST-T changes, QTc 370 MS. Chest x-ray showed no acute cardiopulmonary process/disease Labs on admission showed WBC 15.9, hemoglobin 17.7, MCV 100.1, platelet count 340,000, PT 11.4, INR 1, PTT 24.5, sodium 136, potassium 4.4, chloride 95, bicarb 27, BUN 16, creatinine 1.05, glucose 124, calcium 9.6, magnesium 1.9, total bilirubin 0.8, AST 19, ALT 29, alk phos 86, troponin less than 0.0 12, albumin 4.3. Cepheid 4 negative. Vitals on admission were temperature 97.5, pulse rate 105, respiratory 18, blood pressure 150/98, O2 saturation 96% on room air Patient was evaluated for chest pain to rule out ACS and to manage hyponatremia and hypochloremia. Ordered troponins trending, cardiac monitoring, supplemental oxygen, high-dose aspirin, high intensity statin, metoprolol titrate. Cardiology was consulted. Cardiology recommended stress echo and daily repeat EKG. Lexiscan stress test reported as combination of extensive GI activity and likely diaphragmatic attenuation artifact resulting in nondiagnostic inferior wall, unable to exclude either inducible ischemia or old infarct, no reversibility seen among remaining fried. Repeat EKG showed no worsening interval changes. Patient symptoms improved throughout hospital stay. Electrolyte imbalances were corrected throughout hospital stay and no other complications occurred throughout hospital stay. Patient's home medications were resumed, aspirin and Lipitor were prescribed. Cardiology recommended outpatient follow-up. Patient is advised to follow-up with Dr. Harper and PCP on outpatient basis. Final Diagnosis: #. Chest pain, ACS ruled out #. Hyponatremia, resolved #. Hypochloremia, resolved #. Diabetes mellitus #. Asthma #. Heart failure #. CVA/TIA (no residuals) #. GERD #. Hyperlipidemia #. Hypertension #. Hx CKD, now GFR 81 #. Sleep apnea (uses CPAP) #. Fibromyalgia #. Hypothyroidism #. Anxiety #. Depression Physical examination: Vital signs reviewed General: non toxic, no distress Derm: no unusual rashes/lesions, warm Head: atraumatic, normocephalic, symmetric Eyes: EOMI, anicteric sclera, pupils equal round reactive to light ENT: Nose and ears atraumatic Neck: No cervical lymphadenopathy, trachea midline, supple Mouth: no lip lesion, mucus membranes moist Cardiovascular: S1S2 reg, no murmur Lungs: CTA bilateral, no rhonchi, no rales, no accessory muscle use Abdominal: soft, nondistended, nontender to palpation, no guarding Ext: muscle strength 5 out of 5 in all 4 extremities grossly, no gross muscle atrophy, no contractures, positive dorsalis pedis pulse bilateral, no edema Neuro: CN II-XI grossly intact, no gross focal neuro deficits Psych: Alert, oriented, appropriate affect and mood A total of 38 minutes of time were spent preparing this complex discharge summary. Patient was discharged on 01/03/25 at 1151. I have seen and evaluated the patient today. Discussed with the resident and agree with the residents finding and plan as documented in the resident's note. Changes highlighted in blue font. Patient Condition at Discharge: Stable Plan - Discharge Summary Discharge Rx Participant: No New Discharge Prescriptions: New Aspirin 81 mg PO DAILY #90 tab Atorvastatin [Lipitor] 40 mg PO DAILY #30 tablet Continue DULoxetine HCL [Cymbalta] 60 mg PO HS Levothyroxine Sodium [Synthroid] 88 mcg PO DAILY Dicyclomine HCl 20 mg PO TID allopurinoL [Zyloprim] 200 mg PO DAILY Empagliflozin [Jardiance] 10 mg PO DAILY Prazosin [Minipress] 2 mg PO HS Pregabalin [Lyrica] 100 mg PO TID 30 Days #90 cap hydrALAZINE HCL [Apresoline] 50 mg PO TID Colestipol HCl 2 gm PO DAILY Albuterol Sulfate [Albuterol Sulfate Hfa] 2 puff INHALATION RT-Q6H PRN PRN Reason: Shortness Of Breath Baclofen [Lioresal] 10 mg PO BID Acetaminophen-Codeine 300-30mg [Tylenol w/codeine #3] 1 tab PO TID Semaglutide [Ozempic] 2 mg SQ WE Metoprolol Tartrate [Lopressor] 50 mg PO BID Pantoprazole [Protonix] 40 mg PO BID Famotidine 40 mg PO HS metFORMIN HCL ER [Glucophage XR] 500 mg PO BID Insulin Glargine,Hum.rec.anlog [Lantus Solostar Pen] 22 units SQ DAILY Discontinued Atorvastatin [Lipitor] 10 mg PO HS Discharge Medication List DULoxetine HCL [Cymbalta] 60 mg PO HS 12/31/14 [History] Levothyroxine Sodium [Synthroid] 88 mcg PO DAILY 11/17/18 [History] Dicyclomine HCl 20 mg PO TID 01/06/21 [History] Metoprolol Tartrate [Lopressor] 50 mg PO BID 02/04/21 [History] allopurinoL [Zyloprim] 200 mg PO DAILY 06/02/21 [History] Empagliflozin [Jardiance] 10 mg PO DAILY 11/25/22 [History] Pantoprazole [Protonix] 40 mg PO BID 01/21/23 [History] Famotidine 40 mg PO HS 02/21/24 [History] Prazosin [Minipress] 2 mg PO HS 02/21/24 [History] metFORMIN HCL ER [Glucophage XR] 500 mg PO BID 02/21/24 [History] Pregabalin [Lyrica] 100 mg PO TID 30 Days #90 cap 12/11/24 [Rx] Acetaminophen-Codeine 300-30mg [Tylenol w/codeine #3] 1 tab PO TID 12/30/24 [History] Albuterol Sulfate [Albuterol Sulfate Hfa] 2 puff INHALATION RT-Q6H PRN 12/30/24 [History] Baclofen [Lioresal] 10 mg PO BID 12/30/24 [History] Colestipol HCl 2 gm PO DAILY 12/30/24 [History] Insulin Glargine,Hum.rec.anlog [Lantus Solostar Pen] 22 units SQ DAILY 12/30/24 [History] Semaglutide [Ozempic] 2 mg SQ WE 12/30/24 [History] hydrALAZINE HCL [Apresoline] 50 mg PO TID 12/30/24 [History] Aspirin 81 mg PO DAILY #90 tab 01/02/25 [Rx] Atorvastatin [Lipitor] 40 mg PO DAILY #30 tablet 01/02/25 [Rx] Follow up Appointment(s)/Referral(s): Gabby Harper MD [STAFF PHYSICIAN] - 01/09/25 9:00 am Tristin Phillips DO [Primary Care Provider] - 1-2 days Patient Instructions/Handouts: Chest Pain (DC) Activity/Diet/Wound Care/Special Instructions: Please see PCP and home health outreach coordinator for follow up Discharge Disposition: HOME SELF-CARE
[2025-01-02 12:10] LABS: Glucose,Whole Blood 301 mg/dL (70-110)
--- NOTE | 2025-01-02 12:29 | P.PN ---
Subjective Progress Note Date: 01/02/25 Consult reason: chest pain Chief complaint: Chest pain History of present illness: Patient is a pleasant 54-year-old male with significant past medical history of diabetes type 2, hyperlipidemia, hypertension, anxiety, history of stroke who presented with complaints of chest pain. He does follow with Dr. Harper in the office. He states that 2 days ago he developed a headache, backache and chest pain. He did have a recent upper respiratory infection and was on steroids and antibiotics last week. His blood pressure has been high at home. He was feeling clammy and nauseous with his chest and back pain. Labs reviewed: WBC 15.9, hemoglobin 17.7, creatinine 1.05, A1c 6.5, troponin negative x 3. EKG shows sinus tachycardia. Chest x-ray with no acute findings. It is noted that he had a Lexiscan stress test 01/10/2024 in the office that was negative. Prior echocardiogram 2020 with a EF 55%. He is still complaining of his head pounding, chest and back pain 8 out of 10 and requesting narcotics. He reports having minimal relief with narcotics. He does have chest tenderness on exam. He is having lower back pain. He takes T3's at home for chronic pain. 01/01 Patient seen and examined. Patient is scheduled for stress echocardiogram today. Patient denies chest pain. He does complain of a headache and he thoug ht his blood pressure was high but upon review, blood pressures are well- controlled. He denies any palpitations. No dizziness. Telemetry has been a sinus rhythm. Blood pressure 126/78, heart rate 113, pulse ox 94% on room air. Repeat blood work reveals potassium 4.7, BUN 14 creatinine 0.98. 01/02 Patient seen and examined. He denies having any chest pain. He did not have any chest pain through the night. He states his breathing is okay. Yesterday he underwent a Lexiscan Cardiolite stress test which revealed combination of extensive GI activity likely diaphragmatic attenuation artifact resulting in nondiagnostic inferior wall. Unable to exclude either inducible ischemia or old infarct. No reversibility seen among the remaining fried. Blood pressure 147/98, heart rate 98, pulse ox 96% on room air. Repeat blood work reveals WBC 12.3, hemoglobin 15.7, creatinine 0.89. PHYSICAL EXAMINATION: This is a 54-year-old male in no apparent distress at the time of my examination. HEENT: Head is atraumatic, normocephalic. Pupils are equal, round. Sclerae anicteric. Conjunctivae are clear. Mucous membranes of the mouth are moist. Neck is supple. There is no jugular venous distention. No carotid bruit is heard. CHEST EXAMINATION: Lungs are clear to auscultation. + chest wall tenderness is noted on palpation. HEART EXAMINATION: Heart regular rate and rhythm. S1, S2 heard. No murmurs, gallops or rub. ABDOMEN: Soft, nontender. Bowel sounds are heard. EXTREMITIES: 2+ peripheral pulses with no evidence of peripheral edema and no calf tenderness noted. NEUROLOGIC EXAMINATION: Patient is awake, alert and oriented x3. IMPRESSION AND PLAN: Diabetes type 2 Hyperlipidemia Hypertension Anxiety Chest pain History of stroke Back pain Headache Leukocytosis PLAN: Patient is cleared for discharge and may follow-up in the office in 1 to 2 weeks. Nurse practitioner note has been reviewed, I agree with documented findings and plan of care. Patient was seen and examined. Objective - Vital Signs Vital signs: Vital Signs Temp 98.0 F 01/02/25 07:05 Pulse 98 01/02/25 07:05 Resp 16 01/02/25 07:05 BP 147/98 01/02/25 07:05 Pulse Ox 96 01/02/25 07:05 FiO2 Intake & Output 01/01/25 01/02/25 01/02/25 18:59 06:59 18:59 Intake Total 240 Balance 240 Intake: Oral 240 Other: Voiding Method Toilet # Voids 1 3 - Labs CBC & Chem 7: 01/02/25 05:12 01/02/25 05:12 Labs: Abnormal Lab Results - Last 24 Hours (Table) 01/01/25 01/01/25 01/01/25 Range/Units 09:15 14:24 15:36 WBC (3.8-10.6) k/uL MCV (80.0-100.0) fL Neutrophils # (1.3-7.7) k/uL Sodium 135 L (137-145) mmol/L Chloride 97 L (98-107) mmol/L Glucose 150 H (74-99) mg/dL POC Glucose (mg/dL) 159 H 201 H (70-110) mg/dL 0301/01/25 01/02/25 Range/Units 17:48 20:26 05:12 WBC 12.3 H (3.8-10.6) k/uL MCV 101.1 H (80.0-100.0) fL Neutrophils # 9.8 H (1.3-7.7) k/uL Sodium (137-145) mmol/L Chloride (98-107) mmol/L Glucose (74-99) mg/dL POC Glucose (mg/dL) 161 H 163 H (70-110) mg/dL 01/02/25 01/02/25 Range/Units 05:12 05:44 WBC (3.8-10.6) k/uL MCV (80.0-100.0) fL Neutrophils # (1.3-7.7) k/uL Sodium 133 L (137-145) mmol/L Chloride 95 L (98-107) mmol/L Glucose 177 H (74-99) mg/dL POC Glucose (mg/dL) 183 H (70-110) mg/dL
== END 2025-01-02 12:50 | disposition home or self-care (01) ==
LOC: EC 13:48 → 6NMEDSUR 16:20 → INTOOBSV 16:21 → OBSVTOIN 16:21 → 6NMEDSUR 19:51
PROVIDERS: ADMIT Student in an Organized Health Care Education/Training Program; ATTEND Student in an Organized Health Care Education/Training Program
DX: R07.9 Chest pain, unspecified (principal); M54.9 Dorsalgia, unspecified; R51.9 Headache, unspecified; D72.829 Elevated white blood cell count, unspecified; E87.1 Hypo-osmolality and hyponatremia; E87.8 Other disorders of electrolyte and fluid balance, not elsewhere classified; J45.909 Unspecified asthma, uncomplicated; I25.10 Atherosclerotic heart disease of native coronary artery without angina pectoris; I13.0 Hypertensive heart and chronic kidney disease with heart failure and stage 1 through stage 4 chronic kidney disease, or unspecified chronic kidney disease; I50.9 Heart failure, unspecified; N18.30 Chronic kidney disease, stage 3 unspecified; E11.22 Type 2 diabetes mellitus with diabetic chronic kidney disease; K21.9 Gastro-esophageal reflux disease without esophagitis; E78.5 Hyperlipidemia, unspecified; F41.9 Anxiety disorder, unspecified; F32.A Depression, unspecified; G47.30 Sleep apnea, unspecified; M79.7 Fibromyalgia; E03.9 Hypothyroidism, unspecified; E11.51 Type 2 diabetes mellitus with diabetic peripheral angiopathy without gangrene; Z11.52 Encounter for screening for COVID-19; Z85.828 Personal history of other malignant neoplasm of skin; Z86.73 Personal history of transient ischemic attack (TIA), and cerebral infarction without residual deficits; Z87.891 Personal history of nicotine dependence; Z79.890 Hormone replacement therapy; Z79.82 Long term (current) use of aspirin; Z79.84 Long term (current) use of oral hypoglycemic drugs; Z79.85 Long-term (current) use of injectable non-insulin antidiabetic drugs; Z79.899 Other long term (current) drug therapy; Z88.1 Allergy status to other antibiotic agents; Z88.2 Allergy status to sulfonamides
CPT/HCPCS: 96376 ×3; 96372 ×4; 96374; 99285; 36415; 93005; 93017; 93351; 80061; 80053; 80048 ×2; 83735; 84484; 85025 ×2; 85610; 85730; 83036; 87636; 71046; 78452; G0378 ×4; A9500; J0280; J1650 ×4; J2785; J1171 ×4; 96361

== ENCOUNTER 2025-02-02 07:06 | Day surgery (SDC) | payer MEDICARE ==
[2025-01-30 15:29] VITALS: BMI 33.3
[~2025-02-02 07:06] MED LIST changes: -LACTATED RINGERS 1,000 ML IV SCH; +LIDOCAINE 1% (10MG/ML) FOR IV START INTRADERMA PRN
[2025-02-02 07:51] VITALS: TEMP 97.5
[2025-02-02 08:01] LABS: Glucose,Whole Blood 92 mg/dL (70-110)
[2025-02-02] MEDS: LACTATED RINGERS 1,000 ML IV SCH (08:01)
[2025-02-02] MEDS: IV FLUID CONTINUATION 1,000 ML IV ONE (08:02)
[2025-02-02] MEDS ORDERED: PROPOFOL 10 MG/ML 20 ML VIAL IV ONE (08:38)
--- NOTE | 2025-02-02 08:51 | P.PCN ---
Date of Procedure: 02/02/25 Procedure(s) Performed: BRIEF HISTORY: Patient is a 54-year-old pleasant white male scheduled for an elective colonoscopy as a part of screening for history of colon polyps. His last colonoscopy was 5 years ago. PROCEDURE PERFORMED: Colonoscopy with biopsy. PREOPERATIVE DIAGNOSIS: Screening for history of colon polyps. IV sedation per Anesthesia. PROCEDURE: After informed consent was obtained, the patient, was brought into the endoscopy unit. IV sedation was administered by Anesthesia under continuous monitoring. Digital rectal examination was normal. Initially the Olympus CF-160 flexible video colonoscope was then inserted in the rectum, gradually advanced into the cecum without any difficulty. Careful examination was performed as the scope was gradually being withdrawn. Ileocecal valve and the appendiceal orifice were visualized and appeared normal. Prep was excellent. Mucosa of the cecum appeared normal. Terminal ileum was intubated and 10 cm visualized and appeared normal. In the ascending colon there was a 6 mm superficial ulceration identified with a clean base that was biopsied. Rest of the, ascending colon, transverse colon, descending colon, sigmoid colon, and rectum appeared normal. Retroflexion was performed in the rectum and no lesions were seen. The patient tolerated the procedure well. IMPRESSION: 6 mm superficial ascending colon ulcer s/p biopsy No evidence of colorectal neoplasia RECOMMENDATIONS: Findings of this examination were discussed with the patient as well as his family. He was advised to follow the biopsy results. Recommend repeat screening colonoscopy in 10 years..
[2025-02-02 09:00] VITALS: RESP 14
[2025-02-02 09:10] VITALS: BP 142/92; PULSE 82
[2025-02-02 09:14] LABS: Glucose,Whole Blood 103 mg/dL (70-110)
== END 2025-02-02 09:24 | disposition home or self-care (01) ==
LOC: ORWHC2ENDO 07:06
PROVIDERS: ATTEND Internal Medicine Gastroenterology
DX: Z12.11 Encounter for screening for malignant neoplasm of colon (principal); Z86.0100 Personal history of colon polyps, unspecified; K63.3 Ulcer of intestine
CPT/HCPCS: 88305; 45380; J2704

== ENCOUNTER → 2025-02-05 | Outpatient (CLI) | payer MEDICARE ==
[2025-02-06 10:27] LABS: Serum Amphetamine Negative; Serum Barbiturates Negative; Serum Benzodiazepine Negative; Serum Cocaine Negative; Serum Methadone Negative; Serum Opiates Positive; Serum Phencyclidine Negative; Serum Propoxyphene Negative; Serum THC (Cannabis) Negative
== END | disposition home or self-care (01) ==
LOC: LABWHC1 13:38
PROVIDERS: ATTEND Physician Assistant Medical
DX: Z02.83 Encounter for blood-alcohol and blood-drug test (principal)
CPT/HCPCS: 36415; 80307

== ENCOUNTER → 2025-02-05 | Outpatient (CLI) | payer MEDICARE ==
[2025-02-05 13:15] VITALS: BP 117/81; PULSE 95; RESP 15; TEMP 98.2
--- NOTE | 2025-02-05 15:52 | P.PAINPG ---
PQRS Measure Charge Sheet Comment: A 54 yr old male with a history of severe and chronic R hip and LBP x 1 yr secondary to R hip DJD, radiculopathy, spondylosis and facet arthropathy without myelopathy presents today for medication refills and evaluation. Pain level is provoked at 7 /10 in intensity, constant, localized in the lumbar spine and R hip, predominantly axial, burning in character w occasional BLE shooting pain. Pain is provoked by bending, lifting in excess of 10 lbs. Pain is alleviated with medications, injections, ice/ heat, PT x 8 wks in Nov 2022, physician guided home stretching regimen daily since Nov 2022, reclining and rest. Has been picking up 1 week of Tylenol #3 at a time due to insurance coverage issues. Interventional pain procedures completed include Danae, JOSEPHINE RFA L3-L5 (Aug 2022), R hip injection x1 (Jan 2024) Patient is currently on Tyl #3, Baclofen, Lyrica, Mobic Patient denies any side effects of the medication(s), denies excessive drowsiness or sleepiness, denies suicidal ideation and reports that the current pain medication is helping to control the pain and improve activities of daily living. Patient denies any motor or sensory deficits. Patient denies any fever or night sweats, denies any change in the bowel movements or urination. Physical Examination: -Constitutional: Cooperative. Not in acute distress . - Neurologic: Cranial nerve II to XII intact. No focal neurological deficits. - Psychatric: Alert & oriented x 3. Matching mood & appropriate affect. Judgment and insight intact. - Musculoskeletal: Cervical spine: Muscle bulk/ tone/ strength in the bilateral upper extremities normal Vertebral body tenderness to palpation over Spurling test positive Distraction test positive Facet loading test positive TTP Thoracic spine Muscle bulk / tone/ strength in the bilateral paraspinal muscles normal Vertebral body tender to palpation over Facet loading test positive TTP Lumbar spine: +R Hip Abduction Motor bulk/ tone/ strength lower extremities , thigh and legs : 5/5 Deep tendon reflexes : Normal Knee Jerk. Normal Ankle Jerk . Vertebral body tenderness to palpation over L4 Lumbar Facet Loading Test positive Straight Leg Raise: positive at 30 degrees right side> left side Gaenslen's Test positive Sacral spine : Severe tenderness over the Sacroiliac joint: right side / left side Range of motion: Flexion of the lumbar spine <60 degrees Range of motion: Extension of the lumbar spine <20 degrees Gaenslen's Test positive right side / left side Abebe test: positive right side / left side Thigh Thrust Test positive right side / left side Sacral Thrust Test positive right side / left side Imaging: MRI non contrast of the lumbar spine from 10/29/23 reviewed Assessment and plan: Chronic LBP secondary to lumbar spinal stenosis, radiculopathy, spondylosis with facet arthropathy without myelopathy, R hip DJD Awaiting pt follow up w Dr Mas for his R hip and Dr Shelton for his lumbar spine. Pt had lumbar surgery scheduled for Nov 2024 but was cancelled by his insurance, per the patient. He states he is still following up w Dr Mas and Dr Shelton. Chronic and current use of high-risk medication (Opioids). The patient was counseled about risk of opioid use, psychological risk associated with opioids and was orally counseled to not overuse , divert or sell medications. Pt is to store medication in a safe location. The patient is counseled against driving while using narcotic medications and also not to use alcohol or any illicit recreational drugs. Patient verbalized understanding that the lack of compliance will result in failure to renew narcotic prescription(s) as well as possible discharge from the clinic Diagnoses, prognosis and treatment options including but not limited to physical therapy, surgical interventions, interventional therapies and medication management including narcotics and adjuvant medication were discussed. All patient questions answered. Blood tox screen 02/05/25 Z02.83 script provided. Urged compliance in completed tox screen today. Opiate/ narcotic agre ements updated 02/05/25. MAPS reviewed and it was appropriate. Prescription of Tyl #3 #60. Lyrica 100mg #90, Baclofen w 1 RF. Use, side effects, adverse reactions and safe storage discussed. Pt acknowledged understanding. I have spent less than 30 minutes on patient care today. Dr Cullen was available by phone for the evaluation of this patient. The time was used to review the medical records including relevant urine studies and Prescription history (MAPs), review of the available imaging, evaluation and examination of the patient, coordination of care with the medical staff and if applicable referring physicians, as well as creation of the medical record PQRS Narrative: Smoking Status Current every day smoker Narcotic Agreement Date Signed 07/07/23 Hx Alcohol Use (MH) No Home Medications: Ambulatory Orders DULoxetine HCL [Cymbalta] 60 mg PO HS 12/31/14 Levothyroxine Sodium [Synthroid] 88 mcg PO DAILY 11/17/18 Dicyclomine HCl 20 mg PO TID 01/06/21 Metoprolol Tartrate [Lopressor] 75 mg PO BID 02/04/21 allopurinoL [Zyloprim] 200 mg PO DAILY 06/02/21 Pantoprazole [Protonix] 40 mg PO BID 01/21/23 Famotidine 40 mg PO HS 02/21/24 Prazosin [Minipress] 2 mg PO HS 02/21/24 metFORMIN HCL ER [Glucophage XR] 500 mg PO BID 02/21/24 Albuterol Sulfate [Albuterol Sulfate Hfa] 2 puff INHALATION RT-Q6H PRN 12/30/24 Colestipol HCl 2 gm PO DAILY 12/30/24 Insulin Glargine,Hum.rec.anlog [Lantus Solostar Pen] 22 units SQ DAILY 12/30/24 Semaglutide [Ozempic] 2 mg SQ WE 12/30/24 hydrALAZINE HCL [Apresoline] 50 mg PO TID 12/30/24 Aspirin 81 mg PO DAILY #90 tab 01/02/25 Atorvastatin [Lipitor] 40 mg PO DAILY #30 tablet 01/02/25 Escitalopram [Lexapro] 10 mg PO DAILY 01/30/25 Acetaminophen-Codeine 300-30mg [Tylenol w/codeine #3] 1 tab PO TID PRN 30 Days #90 tab 02/05/25 Baclofen [Lioresal] 10 mg PO BID 30 Days #60 tab 02/05/25 Pregabalin [Lyrica] 100 mg PO TID 30 Days #90 cap 02/05/25 Controlled Substance Measures - Controlled Substance Measures Is patient prescribed a controlled substance at discharge?: Yes When asked, does pt state using other controlled substances?: No If prescribed controlled substance>3 days was MAPS reviewed?: Yes If Rx opioid, was Start Talking consent form obtained?: Yes Was information provided regarding opioid addiction?: Yes
== END | disposition home or self-care (01) ==
LOC: PNWHC3 12:52
PROVIDERS: ATTEND Specialist
DX: M47.26 Other spondylosis with radiculopathy, lumbar region (principal); M48.061 Spinal stenosis, lumbar region without neurogenic claudication; G89.29 Other chronic pain; F17.210 Nicotine dependence, cigarettes, uncomplicated; Z91.048 Other nonmedicinal substance allergy status; Z88.1 Allergy status to other antibiotic agents; Z88.8 Allergy status to other drugs, medicaments and biological substances; Z91.041 Radiographic dye allergy status; Z88.6 Allergy status to analgesic agent; Z88.2 Allergy status to sulfonamides
CPT/HCPCS: 99212

== ENCOUNTER → 2025-02-15 | Outpatient (CLI) | payer MEDICARE ==
--- NOTE | 2025-02-15 11:57 | XR ---
EXAMINATION TYPE: XR ankle complete RT DATE OF EXAM: 02/15/2025 COMPARISON: NONE HISTORY: Pain TECHNIQUE: Frontal, lateral and oblique images of the right ankle are obtained. FINDINGS/IMPRESSION: Soft tissue swelling over the lateral malleolus. Couple of low corticated osseou s small foci along the posterior lateral aspect from the lateral malleolus. May represent an age-inde terminate avulsion fracture versus soft tissue calcification. No dislocation. The joint spaces appea r within normal limits. [facility], , 02/15/2025 11:55 AM
== END | disposition home or self-care (01) ==
LOC: RADXRYALE 10:58
PROVIDERS: ATTEND Physician Assistant Medical
DX: M79.89 Other specified soft tissue disorders (principal); M25.571 Pain in right ankle and joints of right foot

== ENCOUNTER → 2025-04-09 | Outpatient (CLI) | payer MEDICARE ==
[2025-04-09 13:49] VITALS: BP 118/84; PULSE 98; RESP 16; TEMP 97.5
--- NOTE | 2025-04-11 07:33 | P.PAINPG ---
Objective - Vital Signs Vital signs: Vital Signs Temp 97.5 F L 04/09/25 13:42 Pulse 98 04/09/25 13:42 Resp 16 04/09/25 13:42 BP 118/84 04/09/25 13:42 Pulse Ox 98 04/09/25 13:42 FiO2 Intake & Output 04/08/25 04/09/25 04/09/25 18:59 06:59 18:59 Weight 88.451 kg PQRS Measure Charge Sheet Mode of Arrival: Ambulatory Comment: A 54 yr old male with a history of severe and chronic R hip and LBP x 1 yr sec ondary to R hip DJD, radiculopathy, spondylosis and facet arthropathy without myelopathy presents today for medication refills and evaluation. Pain level is provoked at 7-8 /10 in intensity, constant, localized in the lumbar spine and R hip, predominantly axial, burning in character w occasional BLE shooting pain. Pain is provoked by bending, lifting in excess of 10 lbs. Pain is alleviated with medications, injections, ice/ heat, PT x 8 wks in Nov 2022, physician guided home stretching regimen daily since Nov 2022, reclining and rest. Interventional pain procedures completed include Danae, BL RFA L3-L5 (Aug 2022), R hip injection x1 (Jan 2024) Patient is currently on Tyl #3, Baclofen, Lyrica, Mobic Patient denies any side effects of the medication(s), denies excessive drowsiness or sleepiness, denies suicidal ideation and reports that the current pain medication is helping to control the pain and improve activities of daily living. Patient denies any motor or sensory deficits. Patient denies any fever or night sweats, denies any change in the bowel movements or urination. Physical Examination: -Constitutional: Cooperative. Not in acute distress . - Neurologic: Cranial nerve II to XII intact. No focal neurological deficits. - Psychatric: Alert & oriented x 3. Matching mood & appropriate affect. Judgment and insight intact. - Musculoskeletal: Cervical spine: Muscle bulk/ tone/ strength in the bilateral upper extremities normal Vertebral body tenderness to palpation over Spurling test positive Distraction test positive Facet loading test positive TTP Thoracic spine Muscle bulk / tone/ strength in the bilateral paraspinal muscles normal Vertebral body tender to palpation over Facet loading test positive TTP Lumbar spine: +R Hip Abduction Motor bulk/ tone/ strength lower extremities , thigh and legs : 5/5 Deep tendon reflexes : Normal Knee Jerk. Normal Ankle Jerk . Vertebral body tenderness to palpation over L4 Lumbar Facet Loading Test positive Straight Leg Raise: positive at 30 degrees right side> left side Gaenslen's Test positive Sacral spine : Severe tenderness over the Sacroiliac joint: right side / left side Range of motion: Flexion of the lumbar spine <60 degrees Range of motion: Extension of the lumbar spine <20 degrees Gaenslen's Test positive right side / left side Abebe test: positive right side / left side Thigh Thrust Test positive right side / left side Sacral Thrust Test positive right side / left side Imaging: MRI non contrast of the lumbar spine from 10/29/23 reviewed Assessment and plan: Chronic LBP secondary to lumbar spinal stenosis, radiculopathy, spondylosis with facet arthropathy without myelopathy, R hip DJD Awaiting pt follow up w Dr Mas for his R hip and Dr Shelton for his lumbar spine. Pt had lumbar surgery scheduled for Nov 2024 but was cancelled by his insurance, per the patient. He states he has yet to follow up w Dr Shelton & Dr Mas. Chronic and current use of high-risk medication (Opioids). The patient was counseled about risk of opioid use, psychological risk associated with opioids and was orally counseled to not overuse , divert or sell medications. Pt is to store medication in a safe location. The patient is counseled against driving while using narcotic medications and also not to use alcohol or any illicit recreational drugs. Patient verbalized understanding that the lack of compliance will result in failure to renew narcotic prescription(s) as well as possible discharge from the clinic Diagnoses, prognosis and treatment options including but not limited to physical therapy, surgical interventions, interventional therapies and medication management including narcotics and adjuvant medication were discussed. All patient questions answered. Blood tox screen 02/05/25 Z02.83 reviewed and consistent. Opiate/ narcotic agreements updated 02/05/25. MAPS reviewed and it was appropriate. Prescription of Tyl #3 #60. Lyrica 100mg #90, Baclofen w 1 RF. Use, side effects, adverse reactions and safe storage discussed. Pt acknowledged understanding. I have spent less than 30 minutes on patient care today. Dr Cullen was a vailable by phone for the evaluation of this patient. The time was used to review the medical records including relevant urine studies and Prescription history (MAPs), review of the available imaging, evaluation and examination of the patient, coordination of care with the medical staff and if applicable referring physicians, as well as creation of the medical record - Pain Location Bilateral Lower Back Non-Pharmacological Interventions: Heat, Ice, Inactivity, Physical Therapy, Position/Reposition, Relaxation Technique, Sitting Pharmacological Interventions: Epidural, PRN Medication, Scheduled Medication, Topical Medication PQRS Narrative: Smoking Status Current every day smoker Narcotic Agreement Date Signed 02/05/25 Blood Pressure 118/84 Pain Intensity [Bilateral 8 Lower Back] Scale Used Numeric (1 - 10) Hx Alcohol Use (MH) No Home Medications: Ambulatory Orders DULoxetine HCL [Cymbalta] 60 mg PO HS 12/31/14 Levothyroxine Sodium [Synthroid] 88 mcg PO DAILY 11/17/18 Dicyclomine HCl 20 mg PO TID 01/06/21 Metoprolol Tartrate [Lopressor] 75 mg PO BID 02/04/21 allopurinoL [Zyloprim] 200 mg PO DAILY 06/02/21 Pantoprazole [Protonix] 40 mg PO BID 01/21/23 Famotidine 40 mg PO HS 02/21/24 Prazosin [Minipress] 2 mg PO HS 02/21/24 metFORMIN HCL ER [Glucophage XR] 500 mg PO BID 02/21/24 Albuterol Sulfate [Albuterol Sulfate Hfa] 2 puff INHALATION RT-Q6H PRN 12/30/24 Colestipol HCl 2 gm PO DAILY 12/30/24 Insulin Glargine,Hum.rec.anlog [Lantus Solostar Pen] 22 units SQ DAILY 12/30/24 Semaglutide [Ozempic] 2 mg SQ WE 12/30/24 hydrALAZINE HCL [Apresoline] 50 mg PO TID 12/30/24 Aspirin 81 mg PO DAILY #90 tab 01/02/25 Atorvastatin [Lipitor] 40 mg PO DAILY #30 tablet 01/02/25 Escitalopram [Lexapro] 10 mg PO DAILY 01/30/25 Acetaminophen-Codeine 300-30mg [Tylenol w/codeine #3] 1 tab PO TID PRN 30 Days #90 tab 04/09/25 Aspirin [Adult Low Dose Aspirin EC] 81 mg PO 04/09/25 Atorvastatin Calcium 40 mg PO 04/09/25 Baclofen [Lioresal] 10 mg PO BID 30 Days #60 tab 04/09/25 Pregabalin [Lyrica] 100 mg PO TID 30 Days #90 cap 04/09/25 Controlled Substance Measures - Controlled Substance Measures Is patient prescribed a controlled substance at discharge?: Yes When asked, does pt state using other controlled substances?: No If prescribed controlled substance>3 days was MAPS reviewed?: Yes
== END ==
LOC: PNWHC3 13:33
PROVIDERS: ATTEND Specialist
DX: M47.26 Other spondylosis with radiculopathy, lumbar region (principal); M48.061 Spinal stenosis, lumbar region without neurogenic claudication; M16.11 Unilateral primary osteoarthritis, right hip; F17.200 Nicotine dependence, unspecified, uncomplicated; Z88.2 Allergy status to sulfonamides; Z91.048 Other nonmedicinal substance allergy status; Z91.041 Radiographic dye allergy status; Z88.1 Allergy status to other antibiotic agents; Z88.8 Allergy status to other drugs, medicaments and biological substances; Z88.5 Allergy status to narcotic agent
CPT/HCPCS: 99211

== ENCOUNTER 2025-04-16 13:01 | Observation (INO) | payer MEDICARE ==
[2025-04-16 13:06] LABS: Glucose,Whole Blood 162 mg/dL (70-110)
[2025-04-16] MEDS: ASPIRIN 81 MG PO STA (13:31)
[2025-04-16] MEDS: NITROGLYCERIN OINT 1 INCH/GM PACKET TOPICAL STA (13:31)
--- NOTE | 2025-04-16 13:31 | ED ---
General Adult HPI - General Chief complaint: Chest Pain Stated complaint: Chest pain Time Seen by Provider: 04/16/25 13:08 Source: patient, RN notes reviewed Mode of arrival: ambulatory Limitations: no limitations - History of Present Illness Initial comments: Patient is a 54-year-old male present to the emergency department with concerns with chest discomfort. Onset of symptoms was yesterday. Discomfort feels somewhat sharp. Discomfort does increase with deep breaths. Patient does have history of cardiac disease with similar symptoms previously. Patient does have some associated nausea and dyspnea. Patient has had labile blood pressure and blood sugar readings at home. - Related Data Home Medications Medication Instructions Recorded Confirmed DULoxetine HCL [Cymbalta] 60 mg PO HS 12/31/14 04/16/25 Levothyroxine Sodium [Synthroid] 88 mcg PO DAILY 11/17/18 04/16/25 Dicyclomine HCl 20 mg PO TID 01/06/21 04/16/25 Metoprolol Tartrate [Lopressor] 75 mg PO BID 02/04/21 04/16/25 allopurinoL [Zyloprim] 200 mg PO DAILY@1400 06/02/21 04/16/25 Pantoprazole [Protonix] 40 mg PO BID 01/21/23 04/16/25 Famotidine 40 mg PO HS 02/21/24 04/16/25 Prazosin [Minipress] 2 mg PO HS 02/21/24 04/16/25 metFORMIN HCL ER [Glucophage XR] 500 mg PO BID 02/21/24 04/16/25 Albuterol Sulfate [Albuterol 2 puff INHALATION RT-Q6H PRN 12/30/24 04/16/25 Sulfate Hfa] Colestipol HCl 2 gm PO DAILY@1600 12/30/24 04/16/25 Insulin Glargine,Hum.rec.anlog 22 units SQ DAILY 12/30/24 04/16/25 [Lantus Solostar Pen] Semaglutide [Ozempic] 2 mg SQ WE 12/30/24 04/16/25 hydrALAZINE HCL [Apresoline] 50 mg PO TID 12/30/24 04/16/25 Escitalopram [Lexapro] 10 mg PO DAILY 01/30/25 04/16/25 Atorvastatin [Lipitor] 40 mg PO HS 04/16/25 04/16/25 Pregabalin [Lyrica] 100 mg PO TID@1000,1800,2200 04/16/25 04/16/25 Previous Rx's Medication Instructions Recorded Aspirin 81 mg PO DAILY #90 tab 01/02/25 Acetaminophen-Codeine 300-30mg 1 tab PO TID PRN 30 Days #90 tab 04/09/25 [Tylenol w/codeine #3] Baclofen [Lioresal] 10 mg PO BID 30 Days #60 tab 04/09/25 Allergies Allergy/AdvReac Type Severity Reaction Status Date / Time adhesive tape Allergy Rash/Hives Verified 04/16/25 16:19 cefaclor [From Ceclor] Allergy Rash/Hives Verified 04/16/25 16:19 dapagliflozin [From Farxiga] Allergy yeast Verified 04/16/25 16:19 infections Iodinated Contrast Media Allergy Rash/Hives,throat Verified 04/16/25 16:19 [Iodinated Contrast Media - swelling IV Dye] Penicillins Allergy Rash/Hives Verified 04/16/25 16:19 propoxyphene napsylate Allergy Rash/Hives Verified 04/16/25 16:19 [From Darvocet-N 100] Sulfa (Sulfonamide Allergy Dyspnea, Verified 04/16/25 16:19 Antibiotics) rapid heart rate sulfamethoxazole Allergy Rapid Verified 04/16/25 16:19 [From Bactrim] Heart Rate, Shortness of breath trimethoprim [From Bactrim] Allergy Rapid Verified 04/16/25 16:19 Heart Rate, Shortness of breath Review of Systems ROS Statement: Those systems with pertinent positive or pertinent negative responses have been documented in the HPI. ROS Other: All systems not noted in ROS Statement are negative. Constitutional: Denies: fever Eyes: Denies: eye pain ENT: Denies: ear pain Cardiovascular: Reports: as per HPI, chest pain Gastrointestinal: Reports: nausea. Denies: abdominal pain Musculoskeletal: Reports: other (Chronic back pain. Not acute) Past Medical History Past Medical History: Asthma, Coronary Artery Disease (CAD), Chest Pain / Angina, Heart Failure, CVA/TIA, Diabetes Mellitus, Eye Disorder, GERD/Reflux, Hyperlipidemia, Hypertension, Liver Disease, Musculoskeletal Disorder, Prostate Disorder, Renal Disease, Skin Disorder, Sleep Apnea/CPAP/BIPAP, Thyroid Disorder, Vascular Disorder Additional Past Medical History / Comment(s): TMJ, sinus problems, eczema, kidney stones, diverticulitis, back pain w/ DDD, physical limitations, numbness and tingling in bilateral hands, hx skin cancer, hyperflexia, hx CVA 11/2018-no residual effects, PVD, fatty liver, uses CPAP, fibromyalgia, arthritis, nasal polyps, bronchitis, snoring, pneumonia. Hospitaized december 2024 for HTN & Chest pain. States all his tests for that were negative. History of Any Multi-Drug Resistant Organisms: None Reported Past Surgical History: Adenoidectomy, Hernia Repair, Orthopedic Surgery, Tonsillectomy Additional Past Surgical History / Comment(s): Urolift, wart on uvula removed, pain clinic procedures, Lt. knee arthroscopy X2, varicose vein procedure, .Carpal Tunnel, Bilat. elbow surgery, cervical fusion. Past Anesthesia/Blood Transfusion Reactions: Previous Problems w/ Anesthesia Additional Past Anesthesia/Blood Transfusion Reaction / Comment(s): Slow to wake up. Past Psychological History: Anxiety, Depression Smoking Status: Former smoker Past Alcohol Use History: None Reported Past Drug Use History: None Reported - Past Family History Mother Family Medical History: Cancer, Deep Vein Thrombosis (DVT) Father Family Medical History: Cancer, Chest Pain / Angina, Congestive Heart Failure (CHF), Diabetes Mellitus, Sleep Apnea/CPAP/BIPAP Additional Family Medical History / Comment(s): BRONCHITIS, PNEUMONIA, LUNG, SLEEP APNEA, CANCER, INSOMNIA, ULCERS, DIABETES, ANEMIA, RESTLESS LEGS General Exam Limitations: no limitations General appearance: alert, in no apparent distress Head exam: Present: normocephalic Eye exam: Present: normal appearance Neck exam: Present: normal inspection Respiratory exam: Present: normal lung sounds bilaterally. Absent: chest wall tenderness Cardiovascular Exam: Present: regular rate, normal rhythm, normal heart sounds Expanded Peripheral pulses: 2+: Radial (R), Radial (L), Posterior Tibialis (R), Posterior Tibialis (L) GI/Abdominal exam: Present: soft. Absent: tenderness Extremities exam: Present: normal inspection. Absent: pedal edema, calf tenderness Neurological exam: Present: alert Psychiatric exam: Present: normal affect, normal mood Skin exam: Present: normal color Course Vital Signs 04/16/25 04/16/25 04/16/25 13:03 13:25 14:14 Temperature 98.9 F Pulse Rate 117 H 105 H 98 Respiratory 20 20 18 Rate Blood Pressure 142/73 115/80 117/76 O2 Sat by Pulse 98 97 97 Oximetry 04/16/25 16:57 Temperature 97.4 F L Pulse Rate 95 Respiratory 16 Rate Blood Pressure 107/65 O2 Sat by Pulse 96 Oximetry EKG Findings - EKG Results: EKG: interpreted by ERMD ( left axis. LVH criteria. Q wave V1.), sinus rhythm, normal ST/T EKG shows: tachycardia Medical Decision Making - Medical Decision Making Was pt. sent in by a medical professional or institution (, PA, P D DRIVER, urgent care, hospital, or usp...) When possible be specific @ -No Did you speak to anyone other than the patient for history (EMS, parent, family, police, friend...)? What history was obtained from this source @ -No Did you review nursing and triage notes (agree or disagree)? Why? @ -I reviewed and agree with nursing and triage notes Were old charts reviewed (outside hosp., previous admission, EMS record, old EKG, old radiological studies, urgent care reports/EKG's, usp records)? Report findings @ -Previous admission with stress test reviewed Differential Diagnosis (chest pain, altered mental status, abdominal pain women, abdominal pain men, vaginal bleeding, weakness, fever, dyspnea, syncope, headac he, dizziness, GI bleed, back pain, seizure, CVA, palpatations, mental health, musculoskeletal)? @ -Differential Chest Pain: Stable Angina, Unstable Angina, STEMI, NSTEMI Aortic Dissection, Pneumothorax, Musculoskeletal, Esophageal Spasm GERD, Cholecystitis, Pancreatitis, Zoster, this is not meant to be an all-inclusive list. EKG interpreted by me (3pts min.). @ -As above X-rays interpreted by me (1pt min.). @ -Chest x-ray shows no acute process CT interpreted by me (1pt min.). @ -None done U/S interpreted by me (1pt. min.). @ -None done What testing was considered but not performed or refused? (CT, X-rays, U/S, labs)? Why? @ -None What meds were considered but not given or refused? Why? @ -None Did you discuss the management of the patient with other professionals (professionals i.e. , PA, P D DRIVER, lab, RT, psych nurse, manager social services, radio division lieutenant, teacher, project officer, counter caser)? Give summary @ -Case was discussed with Dr. Villalba who will admit, Dr. Oneil me Was smoking cessation discussed for >3mins.? @ -No Was critical care preformed (if so, how long)? @ -No Were there social determinants of health that impacted care today? How? (Homelessness, low income, unemployed, alcoholism, drug addiction, transportation, low edu. Level, literacy, decrease access to med. care, halfway, rehab)? @ -No Was there de-escalation of care discussed even if they declined (Discuss DNR or withdrawal of care, Hospice)? DNR status @ -No What co-morbidities impacted this encounter? (DM, HTN, Smoking, COPD, CAD, Cancer, CVA, ARF, Chemo, Hep., AIDS, mental health diagnosis, sleep apnea, morbid obesity)? @ -History of cardiac disease Was patient admitted / discharged? Hospital course, mention meds given and route, prescriptions, significant lab abnormalities, going to OR and other pertinent info. @ -Patient presents with chest discomfort. Patient does have history of coronary artery disease and diabetes. Initial troponin unremarkable. Patient reevaluated and resting comfortably in bed. Patient updated on results and plan. Patient will be admitted with cardiac consult. Admission orders written. Undiagnosed new problem with uncertain prognosis? @ -No Drug Therapy requiring intensive monitoring for toxicity (Heparin, Nitro, Insulin, Cardizem)? @ -No Were any procedures done? @ -No Diagnosis/symptom? @ -Chest pain Acute, or Chronic, or Acute on Chronic? @ -Acute Uncomplicated (without systemic symptoms) or Complicated (systemic symptoms)? @ -Default Side effects of treatment? @ -No Exacerbation, Progression, or Severe Exacerbation? @ -No Poses a threat to life or bodily function? How? (Chest pain, [place], [place], pneumonia, PE, COPD, DKA, ARF, appy, cholecystitis, CVA, Diverticulitis, Homicidal, Suicidal, threat to staff... and all critical care pts) @ -No - Lab Data Result diagrams: 04/16/25 13:38 04/16/25 13:38 Lab Results 04/16/25 04/16/25 04/16/25 Range/Units 13:05 13:38 13:38 WBC 9.27 (4.50-10.00) 10*3/uL RBC 4.47 (4.40-5.60) 10*6/uL Hgb 14.9 (13.0-17.0) g/dL Hct 43.7 (39.6-50.0) % MCV 97.8 H (80.0-97.0) fL MCH 33.3 H (27.0-32.0) pg MCHC 34.1 (32.0-37.0) g/dL Plt Count 275 (140-440) 10*3/uL MPV 11.0 (9.5-12.2) fL Immature Gran % (Auto) 0.3 % Neutrophils % 67.1 % Lymphocytes % 19.2 % Monocytes % 8.1 % Eosinophils % 4.1 % Basophils % 1.2 % Immature Gran # 0.03 (0.00-0.04) 10*3/uL Neutrophils # 6.22 (1.80-7.70) 10*3/uL Lymphocytes # 1.78 (0.90-5.00) 10*3/uL Monocytes # 0.75 (0.20-1.00) 10*3/uL Eosinophils # 0.38 H (0.04-0.35) 10*3/uL Basophils # 0.11 H (0.00-0.10) 10*3/uL PT 10.5 (10.0-12.5) sec INR 0.9 (<1.2) APTT 24.0 (22.0-30.0) sec D-Dimer 0.21 (<0.60) mg/L FEU Sodium (137-145) mmol/L Potassium (3.5-5.1) mmol/L Chloride (98-107) mmol/L Carbon Dioxide (22-30) mmol/L Anion Gap mmol/L BUN (9-20) mg/dL Creatinine (0.66-1.25) mg/dL Est GFR (CKD-EPI)AfAm (>60 ml/min/1.73 sqM) Est GFR (CKD-EPI)NonAf (>60 ml/min/1.73 sqM) Glucose (74-99) mg/dL POC Glucose (mg/dL) 162 H (70-110) mg/dL POC Glu [employer] ID Saran Devlin Calcium (8.4-10.2) mg/dL Magnesium (1.6-2.3) mg/dL Total Bilirubin (0.2-1.3) mg/dL AST (17-59) U/L ALT (4-49) U/L Alkaline Phosphatase (38-126) U/L Troponin I (0.000-0.034) ng/mL Total Protein (6.3-8.2) g/dL Albumin (3.5-5.0) g/dL Urine Color Urine Appearance (Clear) Urine pH (5.0-8.0) Ur Specific [place] (1.001-1.035) Urine Protein (Negative) Urine Glucose (UA) (Negative) Urine Ketones (Negative) Urine Blood (Negative) Urine Nitrite (Negative) Urine Bilirubin (Negative) Urine Urobilinogen (<2.0) mg/dL Ur Leukocyte Esterase (Negative) Acetone, Qual (Negative) 04/16/25 04/16/25 04/16/25 Range/Units 13:38 13:38 14:47 WBC (4.50-10.00) 10*3/uL RBC (4.40-5.60) 10*6/uL Hgb (13.0-17.0) g/dL Hct (39.6-50.0) % MCV (80.0-97.0) fL MCH (27.0-32.0) pg MCHC (32.0-37.0) g/dL Plt Count (140-440) 10*3/uL MPV (9.5-12.2) fL Immature Gran % (Auto) % Neutrophils % % Lymphocytes % % Monocytes % % Eosinophils % % Basophils % % Immature Gran # (0.00-0.04) 10*3/uL Neutrophils # (1.80-7.70) 10*3/uL Lymphocytes # (0.90-5.00) 10*3/uL Monocytes # (0.20-1.00) 10*3/uL Eosinophils # (0.04-0.35) 10*3/uL Basophils # (0.00-0.10) 10*3/uL PT (10.0-12.5) sec INR (<1.2) APTT (22.0-30.0) sec D-Dimer (<0.60) mg/L FEU Sodium 139 (137-145) mmol/L Potassium 4.1 (3.5-5.1) mmol/L Chloride 99 (98-107) mmol/L Carbon Dioxide 25 (22-30) mmol/L Anion Gap 15 mmol/L BUN 11 (9-20) mg/dL Creatinine 1.09 (0.66-1.25) mg/dL Est GFR (CKD-EPI)AfAm 89 (>60 ml/min/1.73 sqM) Est GFR (CKD-EPI)NonAf 77 (>60 ml/min/1.73 sqM) Glucose 128 H (74-99) mg/dL POC Glucose (mg/dL) (70-110) mg/dL POC Glu [employer] ID Calcium 10.3 H (8.4-10.2) mg/dL Magnesium 1.5 L (1.6-2.3) mg/dL Total Bilirubin 0.4 (0.2-1.3) mg/dL AST 26 (17-59) U/L ALT 32 (4-49) U/L Alkaline Phosphatase 86 (38-126) U/L Troponin I <0.012 (0.000-0.034) ng/mL Total Protein 6.6 (6.3-8.2) g/dL Albumin 4.5 (3.5-5.0) g/dL Urine Color Yellow Urine Appearance Clear (Clear) Urine pH 6.0 (5.0-8.0) Ur Specific [place] 1.028 (1.001-1.035) Urine Protein Trace H (Negative) Urine Glucose (UA) Negative (Negative) Urine Ketones Negative (Negative) Urine Blood Negative (Negative) Urine Nitrite Negative (Negative) Urine Bilirubin Negative (Negative) Urine Urobilinogen 2.0 (<2.0) mg/dL Ur Leukocyte Esterase Negative (Negative) Acetone, Qual Negative (Negative) Disposition Clinical Impression: Chest pain Disposition: ADMITTED IP TO THIS HOSP Is patient prescribed a controlled substance at d/c from ED?: No Referrals: Tristin Phillips DO [Primary Care Provider] - 1-2 days Time of Disposition: 17:30
[2025-04-16 13:54] LABS: Basophils # (A) 0.11 10*3/uL (0.00-0.10); Basophils % (A) 1.2 %; Eosinophils # (A) 0.38 10*3/uL (0.04-0.35); Eosinophils % (A) 4.1 %; HCT 43.7 % (39.6-50.0); HGB 14.9 g/dL (13.0-17.0); Lymphocytes # (A) 1.78 10*3/uL (0.90-5.00); Lymphocytes % (A) 19.2 %; MCH 33.3 pg (27.0-32.0); MCHC 34.1 g/dL (32.0-37.0); MCV 97.8 fL (80.0-97.0); Monocytes # (A) 0.75 10*3/uL (0.20-1.00); Monocytes % (A) 8.1 %; Neutrophils # (A) 6.22 10*3/uL (1.80-7.70); Neutrophils % (A) 67.1 %; Platelet Count 275 10*3/uL (140-440); RBC 4.47 10*6/uL (4.40-5.60); RDW 13.3 % (11.5-14.5); WBC 9.27 10*3/uL (4.50-10.00)
[2025-04-16 14:10] LABS: ALT 32 U/L (4-49); AST 26 U/L (17-59); African American GFR (CKD) 89 (>60 ml/min/1.73 sqM); Albumin 4.5 g/dL (3.5-5.0); Alkaline Phosphatase 86 U/L (38-126); Anion Gap 15 mmol/L; Blood Urea Nitrogen 11 mg/dL (9-20); Calcium 10.3 mg/dL (8.4-10.2); Carbon Dioxide 25 mmol/L (22-30); Chloride 99 mmol/L (98-107); Glucose 128 mg/dL (74-99); Magnesium 1.5 mg/dL (1.6-2.3); Non-African American GFR(CKD) 77 (>60 ml/min/1.73 sqM); Potassium 4.1 mmol/L (3.5-5.1); Sodium 139 mmol/L (137-145); Total Bilirubin 0.4 mg/dL (0.2-1.3); Total Protein 6.6 g/dL (6.3-8.2)
[2025-04-16 14:15] LABS: INR 0.9 (<1.2); Prothrombin Time 10.5 sec (10.0-12.5)
--- NOTE | 2025-04-16 14:28 | XR ---
EXAMINATION TYPE: XR chest 2V DATE OF EXAM: 04/16/2025 2:24 PM COMPARISON: Chest radiographs from 12/30/2024 CLINICAL INDICATION: Male, 54 years old with history of Chest Pain; [facility] TECHNIQUE: XR chest 2V Frontal and lateral views of the chest. FINDINGS: Lungs/Pleura: There is no evidence of pleural effusion, focal consolidation, or pneumothorax. Pulmonary vascularity: Unremarkable. Heart/mediastinum: Cardiomediastinal silhouette is unremarkable. Musculoskeletal: No acute osseous pathology. IMPRESSION: No acute cardiopulmonary disease/process. [facility], Workstation: [facility], 04/16/2025 2:26 PM
[2025-04-16 14:56] LABS: Appearance,Urine Clear (Clear); Bilirubin,Urine Negative (Negative); Blood,Urine Negative (Negative); Color,Urine Yellow; Glucose,Urine (UA) Negative (Negative); Ketones,Urine Negative (Negative); Leukocyte Esterase,Urine Negative (Negative); Nitrite,Urine Negative (Negative); Protein,Urine Trace (Negative); Specific Gravity,Urine 1.028 (1.001-1.035)
--- NOTE | 2025-04-16 15:18 | US ---
EXAMINATION TYPE: US venous doppler duplex LE RT DATE OF EXAM: 04/16/2025 3:00 PM COMPARISON: NONE CLINICAL INDICATION: Male, 54 years old with history of pain; pain, Pain TECHNIQUE: The lower extremity deep venous system is examined utilizing real time linear array sonog aspen with graded compression, color doppler sonography, and spectral doppler. SIDE PERFORMED: Right FINDINGS: VESSELS IMAGED: Common Femoral Vein Deep Femoral Vein Greater Saphenous Vein * Femoral Vein Popliteal Vein Small Saphenous Vein * Proximal Calf Veins (* superficial vessels) Right Leg: Negative for DVT, Color Doppler imaging shows patency of the vessels. Spectral waveforms are within normal limits. IMPRESSION: No ultrasound evidence for deep venous thrombosis. [facility], Workstation: [facility], 04/16/2025 3:15 PM
[2025-04-16] MEDS ORDERED: Magnesium Replacement Protocol 1 EACH MISC MISCELLANE PRN (16:58)
[2025-04-16] MEDS ORDERED: NITROGLYCERIN SL TABS 0.4 MG TAB SUBLINGUAL PRN (17:31)
[2025-04-16] MEDS ORDERED: ALBUTEROL NEBULIZED 2.5 MG/3 ML INHALATION PRN (17:32)
[2025-04-16] MEDS ORDERED: DEXTROSE 50% SYRINGE 50 ML IVP PRN ×2 (17:35)
[2025-04-16] MEDS ORDERED: NALOXONE 0.4 MG/ML 1 ML VIAL IV PRN (17:52)
--- NOTE | 2025-04-16 17:52 | P.HPIM ---
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 Started having symptoms 04/15, described as sharp pain that is worse with deep inspiration. When pain comes, it is constant, no elevating factors. He states that the symptoms are similar to his prior chest pain that was previously evaluated with a stress test. Admits associated shortness of breath, no dizziness, lightheadedness, sweating, fevers, chills. Had Lexiscan done on 01/01/2025:evealed combination of extensive GI activity likely diaphragmatic attenuation artifact resulting in nondiagnostic inferior wall. Unable to exclude either inducible ischemia or old infarct. No reversibility seen among the remaining fried. On arrival afebrile, tachycardic at 117, BP 142/73, SPO2 98% on room air. Lab work revealed normal WBC and hemoglobin count, platelet count, coagulation profile, normal sodium, potassium, creatinine, bicarb, glucose, calcium elevated 10.3, magnesium low 1.5, normal AST, ALT, negative troponin, urinalysis negative for UTI. Venous duplex negative for VTE. X-ray showed sinus tachycardia, no ST elevation, aVL T wave inversion, QTc 383. Patient was admitted under observation for chest pain, cardiology consultation. Pertinent positives and negatives as discussed in HPI, a complete review of systems was performed and all other systems are negative. Patient seen and examined at bedside. [] Vital signs reviewed General: nontoxic, no distress, appears at stated age Derm: warm, dry Head: atraumatic, normocephalic, symmetric Eyes: EOMI, no lid lag, anicteric sclera, pupils equal round reactive to light ENT: Nose and ears atraumatic Neck: No thyromegaly, supple Mouth: no lip lesion, mucus membranes moist Cardiovascular: S1S2 reg, no murmur, no edema Lungs: clear to auscultation bilateral, no rhonchi, no rales, no wheeze, no accessory muscle use Abdominal: soft, nontender to palpation, no guarding, no appreciable organomegaly Ext: no gross muscle atrophy, muscle strength muscle strength 5 out of 5 in all 4 extremities, no contractures Neuro: CN II-XII grossly intact Psych: Alert, oriented, appropriate affect Assessment/Plan: Atypical chest pain -Possible musculoskeletal component with point tenderness on palpation -Continue aspirin 81 mg daily, Lipitor 40 mg daily -Cardiology consulted, appreciate recommendations -Nitroglycerinointment every 6 hour, sublingual nitro every 5 minutes as n eededrt failure 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 3 times daily, hydralazine 50 mg p.o. 3 times daily, Lopressor 50 mg p.o. twice daily, Protonix 40 mg twice daily, famotidine 40 mg nightly, hold Ozempic and metformin, continue with SSI, Lantus nightly 2020 units home dose, Accu-Cheks, hypoglycemia precautions -Monitor BP -Continue use of CPAP at night Back pain, chronic: Follows with orthopedic surgery and pain medicine, supposed to have a back surgery DVT ppx: Lovenox 40 mg SQ daily Dispo: The patient is admitted with an anticipated less than 2 midnight stay for evaluation of chest pain CODE STATUS: Full A total of 40minutes was spent on the care of this complex patient more than 50% of the time was spent in counseling and care coordination. Past Medical History Past Medical History: Asthma, Coronary Artery Disease (CAD), Chest Pain / Angina, Heart Failure, CVA/TIA, Diabetes Mellitus, Eye Disorder, GERD/Reflux, Hyperlipidemia, Hypertension, Liver Disease, Musculoskeletal Disorder, Prostate Disorder, Renal Disease, Skin Disorder, Sleep Apnea/CPAP/BIPAP, Thyroid Disorder, Vascular Disorder Additional Past Medical History / Comment(s): TMJ, sinus problems, eczema, kidney stones, diverticulitis, back pain w/ DDD, physical limitations, numbness and tingling in bilateral hands, hx skin cancer, hyperflexia, hx CVA 11/2018-no residual effects, PVD, fatty liver, uses CPAP, fibromyalgia, arthritis, nasal polyps, bronchitis, snoring, pneumonia. Hospitaized december 2024 for HTN & Chest pain. States all his tests for that were negative. History of Any Multi-Drug Resistant Organisms: None Reported Past Surgical History: Adenoidectomy, Hernia Repair, Orthopedic Surgery, Tonsillectomy Additional Past Surgical History / Comment(s): Urolift, wart on uvula removed, pain clinic procedures, Lt. knee arthroscopy X2, varicose vein procedure, .Carpal Tunnel, Bilat. elbow surgery, cervical fusion. Past Anesthesia/Blood Transfusion Reactions: Previous Problems w/ Anesthesia Additional Past Anesthesia/Blood Transfusion Reaction / Comment(s): Slow to wake up. Past Psychological History: Anxiety, Depression Smoking Status: Former smoker Past Alcohol Use History: None Reported Past Drug Use History: None Reported - Past Family History Mother Family Medical History: Cancer, Deep Vein Thrombosis (DVT) Father Family Medical History: Cancer, Chest Pain / Angina, Congestive Heart Failure (CHF), Diabetes Mellitus, Sleep Apnea/CPAP/BIPAP Additional Family Medical History / Comment(s): BRONCHITIS, PNEUMONIA, LUNG, SLEEP APNEA, CANCER, INSOMNIA, ULCERS, DIABETES, ANEMIA, RESTLESS LEGS Medications and Allergies Home Medications Medication Instructions Recorded Confirmed Type DULoxetine HCL [Cymbalta] 60 mg PO HS 12/31/14 04/16/25 History Levothyroxine Sodium [Synthroid] 88 mcg PO DAILY 11/17/18 04/16/25 History Dicyclomine HCl 20 mg PO TID 01/06/21 04/16/25 History Metoprolol Tartrate [Lopressor] 75 mg PO BID 02/04/21 04/16/25 History allopurinoL [Zyloprim] 200 mg PO DAILY@1400 06/02/21 04/16/25 History Pantoprazole [Protonix] 40 mg PO BID 01/21/23 04/16/25 History Famotidine 40 mg PO HS 02/21/24 04/16/25 History Prazosin [Minipress] 2 mg PO HS 02/21/24 04/16/25 History metFORMIN HCL ER [Glucophage XR] 500 mg PO BID 02/21/24 04/16/25 History Albuterol Sulfate [Albuterol 2 puff INHALATION RT-Q6H PRN 12/30/24 04/16/25 History Sulfate Hfa] Colestipol HCl 2 gm PO DAILY@1600 12/30/24 04/16/25 History Insulin Glargine,Hum.rec.anlog 22 units SQ DAILY 12/30/24 04/16/25 History [Lantus Solostar Pen] Semaglutide [Ozempic] 2 mg SQ WE 12/30/24 04/16/25 History hydrALAZINE HCL [Apresoline] 50 mg PO TID 12/30/24 04/16/25 History Aspirin 81 mg PO DAILY #90 tab 01/02/25 04/16/25 Rx Escitalopram [Lexapro] 10 mg PO DAILY 01/30/25 04/16/25 History Acetaminophen-Codeine 300-30mg 1 tab PO TID PRN 30 Days #90 tab 04/09/25 04/16/25 Rx [Tylenol w/codeine #3] Baclofen [Lioresal] 10 mg PO BID 30 Days #60 tab 04/09/25 04/16/25 Rx Atorvastatin [Lipitor] 40 mg PO HS 04/16/25 04/16/25 History Pregabalin [Lyrica] 100 mg PO TID@1000,1800,2200 04/16/25 04/16/25 History Allergies Allergy/AdvReac Type Severity Reaction Status Date / Time adhesive tape Allergy Rash/Hives Verified 04/16/25 16:19 cefaclor [From Ceclor] Allergy Rash/Hives Verified 04/16/25 16:19 dapagliflozin [From Farxiga] Allergy yeast Verified 04/16/25 16:19 infections Iodinated Contrast Media Allergy Rash/Hives,throat Verified 04/16/25 16:19 [Iodinated Contrast Media - swelling IV Dye] Penicillins Allergy Rash/Hives Verified 04/16/25 16:19 propoxyphene napsylate Allergy Rash/Hives Verified 04/16/25 16:19 [From Darvocet-N 100] Sulfa (Sulfonamide Allergy Dyspnea, Verified 04/16/25 16:19 Antibiotics) rapid heart rate sulfamethoxazole Allergy Rapid Verified 04/16/25 16:19 [From Bactrim] Heart Rate, Shortness of breath trimethoprim [From Bactrim] Allergy Rapid Verified 04/16/25 16:19 Heart Rate, Shortness of breath Physical Exam Vitals: Vital Signs Temp Pulse Resp BP Pulse Ox 04/16/25 16:57 97.4 F L 95 16 107/65 96 04/16/25 14:14 98 18 117/76 97 04/16/25 13:25 105 H 20 115/80 97 04/16/25 13:03 98.9 F 117 H 20 142/73 98 Intake and Output 04/16/25 04/16/25 04/16/25 06:59 14:59 22:59 Other: Weight 87.997 kg Results CBC & Chem 7: 04/16/25 13:38 04/16/25 13:38 Labs: Abnormal Lab Results - Last 24 Hours (Table) 04/16/25 04/16/25 04/16/25 Range/Units 13:05 13:38 13:38 MCV 97.8 H (80.0-97.0) fL MCH 33.3 H (27.0-32.0) pg Eosinophils # 0.38 H (0.04-0.35) 10*3/uL Basophils # 0.11 H (0.00-0.10) 10*3/uL Glucose 128 H (74-99) mg/dL POC Glucose (mg/dL) 162 H (70-110) mg/dL Calcium 10.3 H (8.4-10.2) mg/dL Magnesium 1.5 L (1.6-2.3) mg/dL Urine Protein (Negative) 04/16/25 Range/Units 14:47 MCV (80.0-97.0) fL MCH (27.0-32.0) pg Eosinophils # (0.04-0.35) 10*3/uL Basophils # (0.00-0.10) 10*3/uL Glucose (74-99) mg/dL POC Glucose (mg/dL) (70-110) mg/dL Calcium (8.4-10.2) mg/dL Magnesium (1.6-2.3) mg/dL Urine Protein Trace H (Negative)
[2025-04-16] MEDS: MAGNESIUM SULFATE-D5W PMX 1 GM in DEXTROSE/WATER 1 100ML.BAG IVPB SCH (19:03)
[2025-04-16] MEDS: PREGABALIN 100 MG CAP PO SCH (19:03)
[2025-04-16] MEDS: NITROGLYCERIN OINT 1 INCH/GM PACKET TOPICAL SCH (19:03)
[2025-04-16 19:36] LABS: Glucose,Whole Blood 85 mg/dL (70-110)
[2025-04-16] MEDS: Acetaminophen-Codeine 300-30mg TAB PO PRN (19:46)
[2025-04-16] MEDS: PRAZOSIN 1 MG CAP PO SCH (21:12)
[2025-04-16] MEDS: METOPROLOL TARTRATE 50 MG TAB PO SCH (21:13)
[2025-04-16] MEDS: DULoxetine HCL 60 MG CAPSULE.DR PO SCH (21:14)
[2025-04-16] MEDS: BACLOFEN 10 MG TAB PO SCH (21:15)
[2025-04-16] MEDS: PANTOPRAZOLE 40 MG TABLET PO SCH (21:15)
[2025-04-16] MEDS: DICYCLOMINE 20 MG TAB PO SCH (21:15)
[2025-04-16] MEDS: metFORMIN 500 MG TAB PO SCH (21:15)
[2025-04-16] MEDS: FAMOTIDINE 20 MG TAB PO SCH (21:16)
[2025-04-16] MEDS: ATORVASTATIN 40 MG TAB PO SCH (21:16)
[2025-04-16 21:36] LABS: Glucose,Whole Blood 106 mg/dL (70-110)
[2025-04-16] MEDS: INSULIN LISPRO (HumaLOG) 100 UNIT/ML 10 mL VL SQ SCH (21:45)
[2025-04-16] MEDS: hydrALAZINE HCL 50 MG TAB PO SCH (22:32)
[2025-04-17] MEDS: LEVOTHYROXINE 88 MCG TAB PO SCH (06:53)
[2025-04-17 06:58] LABS: Glucose,Whole Blood 87 mg/dL (70-110)
[2025-04-17] MEDS: INSULIN GLARGINE (LANTUS) 100 UNIT/ML SYR SQ SCH (08:38)
[2025-04-17] MEDS: ENOXAPARIN 40 MG/0.4 ML SYRINGE SQ SCH (08:39)
[2025-04-17] MEDS: ASPIRIN 81 MG PO SCH (08:39)
[2025-04-17 08:58] LABS: Chol/HDL Ratio 4.19 Ratio; LDL Cholesterol,Calculated 32.6 mg/dL (0.0-131.0)
[2025-04-17] MEDS ORDERED: ASPIRIN 325 MG TAB PO SCH (09:00)
[2025-04-17] MEDS ORDERED: INSULIN GLARGINE (LANTUS) 100 UNIT/ML SYR SQ SCH (09:00)
[2025-04-17] MEDS: ESCITALOPRAM 10 MG TAB PO SCH (10:26)
[2025-04-17 11:46] LABS: Glucose,Whole Blood 87 mg/dL (70-110)
[2025-04-17] MEDS ORDERED: ALPRAZolam 0.25 MG TAB PO PRN (12:38)
[2025-04-17] MEDS ORDERED: NITROGLYCERIN SL TABS 0.4 MG TAB SUBLINGUAL PRN (12:38)
[2025-04-17] MEDS ORDERED: ALPRAZolam 0.5 MG TAB PO PRN (12:38)
--- NOTE | 2025-04-17 12:43 | P.CRDCN ---
History of Present Illness History of present illness: HISTORY OF PRESENT ILLNESS: This is a 54-year-old male with a past medical history significant for hypertension, hyperlipidemia, diabetes, and sinus tachycardia. Patient follows in the office with Dr. Harper. We have been asked to see the patient in consultation for chest pain. Patient examined at the bedside. Patient states he started having chest pain on Wednesday. 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 He states it was a pressure type sensation. He reports he was also short of breath. He went to [facility] to check his blood pressure and noted it was high. He also reports his blood sugars were high. He messaged his PCP and was recommended to come to the ER for further evaluation. He was given a nitro patch which did help his chest pain. He denies any chest pain or SOB at the time of examination. Vital signs are stable. DIAGNOSTICS: - EKG reveals sinus tachycardia with no signs of acute ischemia. - Chest xray negative for acute process - Lower extremity Doppler: Negative for DVT of the right leg - Laboratory data: WBC 9.27. Hemoglobin 14.9. Platelet count 275. D-dimer 0.21. Sodium 139. Potassium 4.1. BUN 11. Creatinine 1.09. Troponin negative x 3 - Current home cardiac medications include atorvastatin 40 mg at night, hydralazine 50 mg 3 times daily, metoprolol tartrate 75 mg twice a day, aspirin 81 mg daily - Most recent echocardiogram obtained in November 2022 revealing ejection fraction 55%, mild MR, mild TR - Patient underwent Lexiscan stress test in December 2024 revealing commendation of extensive GI activity and likely diaphragmatic attenuation artifact resulting in nondiagnostic inferior wall. Unable to exclude either inducible ischemia or old infarct here. No reversibility seen along the remaining fried. REVIEW OF SYSTEMS: At the time of my exam: CONSTITUTIONAL: Denies fever or chills. HEENT: Denies blurred vision, vision changes, or eye pain. Denies hemoptysis CARDIOVASCULAR: Denies chest pain. Denies orthopnea. Denies PND. Denies palpitations RESPIRATORY: Denies shortness of breath. GASTROINTESTINAL: Denies abdominal pain. Denies nausea or vomiting. HEMATOLOGIC: Denies bleeding disorders. GENITOURINARY: Denies any blood in urine. SKIN: Denies pruitis. Denies rash. PHYSICAL EXAM: VITAL SIGNS: Reviewed. GENERAL: Well-developed in no acute distress. HEENT: Head is normocephalic. Pupils are equal, round. Sclerae anicteric. Mucous membranes of the mouth are moist. Neck supple. No JVD or thyromegaly LUNGS: Respirations even and unlabored. Lungs essentially clear to auscultation bilaterally. HEART: Regular rate and rhythm. S1 and S2 heard. ABDOMEN: Soft. Nondistended. Nontender. EXTREMITIES: Normal range of motion. No clubbing or cyanosis. Peripheral pulses intact. No lower extremity edema NEUROLOGIC: Awake and alert. Oriented x 3. ASSESSMENT: Chest pain, troponin negative x 3, improved with nitro Hypertension Hyperlipidemia Diabetes History of sinus tachycardia Obesity: BMI 32.3 PLAN: An acute coronary event has been ruled out Obtain 2D echo to assess cardiac structure and function Resume home cardiac medications NPO at midnight Patient to undergo cardiac cath tomorrow with Dr. Harper Iodine allergy medications ordered. To be given prior to cardiac cath tomorrow. Further recommendations pending patient course Nurse practitioner note has been reviewed by physician. Signing provider agrees with the documented findings, assessment, and plan of care documented by LEAD OPERATOR as a scribe. Past Medical History Past Medical History: Asthma, Coronary Artery Disease (CAD), Chest Pain / Angina, Heart Failure, CVA/TIA, Diabetes Mellitus, Eye Disorder, GERD/Reflux, Hyperlipidemia, Hypertension, Liver Disease, Musculoskeletal Disorder, Prostate Disorder, Renal Disease, Skin Disorder, Sleep Apnea/CPAP/BIPAP, Thyroid Disorder, Vascular Disorder Additional Past Medical History / Comment(s): TMJ, sinus problems, eczema, kidney stones, diverticulitis, back pain w/ DDD, physical limitations, numbness and tingling in bilateral hands, hx skin cancer, hyperflexia, hx CVA 11/2018-no residual effects, PVD, fatty liver, uses CPAP, fibromyalgia, arthritis, nasal polyps, bronchitis, snoring, pneumonia. Hospitaized december 2024 for HTN & Chest pain. States all his tests for that were negative. History of Any Multi-Drug Resistant Organisms: None Reported Past Surgical History: Adenoidectomy, Hernia Repair, Orthopedic Surgery, Tonsillectomy Additional Past Surgical History / Comment(s): Urolift, wart on uvula removed, pain clinic procedures, Lt. knee arthroscopy X2, varicose vein procedure, .Carpal Tunnel, Bilat. elbow surgery, cervical fusion. Past Anesthesia/Blood Transfusion Reactions: Previous Problems w/ Anesthesia Additional Past Anesthesia/Blood Transfusion Reaction / Comment(s): Slow to wake up. Past Psychological History: Anxiety, Depression Smoking Status: Former smoker Past Alcohol Use History: None Reported Past Drug Use History: None Reported - Past Family History Mother Family Medical History: Cancer, Deep Vein Thrombosis (DVT) Father Family Medical History: Cancer, Chest Pain / Angina, Congestive Heart Failure (CHF), Diabetes Mellitus, Sleep Apnea/CPAP/BIPAP Additional Family Medical History / Comment(s): BRONCHITIS, PNEUMONIA, LUNG, SLEEP APNEA, CANCER, INSOMNIA, ULCERS, DIABETES, ANEMIA, RESTLESS LEGS Medications and Allergies Home Medications Medication Instructions Recorded Confirmed Type DULoxetine HCL [Cymbalta] 60 mg PO HS 12/31/14 04/16/25 History Levothyroxine Sodium [Synthroid] 88 mcg PO DAILY 11/17/18 04/16/25 History Dicyclomine HCl 20 mg PO TID 01/06/21 04/16/25 History Metoprolol Tartrate [Lopressor] 75 mg PO BID 02/04/21 04/16/25 History allopurinoL [Zyloprim] 200 mg PO DAILY@1400 06/02/21 04/16/25 History Pantoprazole [Protonix] 40 mg PO BID 01/21/23 04/16/25 History Famotidine 40 mg PO HS 02/21/24 04/16/25 History Prazosin [Minipress] 2 mg PO HS 02/21/24 04/16/25 History metFORMIN HCL ER [Glucophage XR] 500 mg PO BID 02/21/24 04/16/25 History Albuterol Sulfate [Albuterol 2 puff INHALATION RT-Q6H PRN 12/30/24 04/16/25 History Sulfate Hfa] Colestipol HCl 2 gm PO DAILY@1600 12/30/24 04/16/25 History Insulin Glargine,Hum.rec.anlog 22 units SQ DAILY 12/30/24 04/16/25 History [Lantus Solostar Pen] Semaglutide [Ozempic] 2 mg SQ WE 12/30/24 04/16/25 History hydrALAZINE HCL [Apresoline] 50 mg PO TID 12/30/24 04/16/25 History Aspirin 81 mg PO DAILY #90 tab 01/02/25 04/16/25 Rx Escitalopram [Lexapro] 10 mg PO DAILY 01/30/25 04/16/25 History Acetaminophen-Codeine 300-30mg 1 tab PO TID PRN 30 Days #90 tab 04/09/25 04/16/25 Rx [Tylenol w/codeine #3] Baclofen [Lioresal] 10 mg PO BID 30 Days #60 tab 04/09/25 04/16/25 Rx Atorvastatin [Lipitor] 40 mg PO HS 04/16/25 04/16/25 History Pregabalin [Lyrica] 100 mg PO TID@1000,1800,2200 04/16/25 04/16/25 History Allergies Allergy/AdvReac Type Severity Reaction Status Date / Time adhesive tape Allergy Rash/Hives Verified 04/16/25 16:19 cefaclor [From Ceclor] Allergy Rash/Hives Verified 04/16/25 16:19 dapagliflozin [From Farxiga] Allergy yeast Verified 04/16/25 16:19 infections Iodinated Contrast Media Allergy Rash/Hives,throat Verified 04/16/25 16:19 [Iodinated Contrast Media - swelling IV Dye] Penicillins Allergy Rash/Hives Verified 04/16/25 16:19 propoxyphene napsylate Allergy Rash/Hives Verified 04/16/25 16:19 [From Darvocet-N 100] Sulfa (Sulfonamide Allergy Dyspnea, Verified 04/16/25 16:19 Antibiotics) rapid heart rate sulfamethoxazole Allergy Rapid Verified 04/16/25 16:19 [From Bactrim] Heart Rate, Shortness of breath trimethoprim [From Bactrim] Allergy Rapid Verified 04/16/25 16:19 Heart Rate, Shortness of breath Physical Exam Vitals: Vital Signs Temp Pulse Resp BP Pulse Ox 04/17/25 05:12 97.7 F 83 17 109/74 97 04/17/25 01:14 98.1 F 92 17 96/63 95 04/16/25 22:35 87 16 101/71 95 04/16/25 21:22 93 17 111/78 97 04/16/25 19:10 98.0 F 92 16 117/80 96 04/16/25 16:57 97.4 F L 95 16 107/65 96 04/16/25 14:14 98 18 117/76 97 04/16/25 13:25 105 H 20 115/80 97 04/16/25 13:03 98.9 F 117 H 20 142/73 98 Results 04/16/25 13:38 04/16/25 13:38 Cardiac Enzymes 04/16/25 04/16/25 04/16/25 Range/Units 13:38 13:38 17:39 AST 26 (17-59) U/L Troponin I <0.012 <0.012 (0.000-0.034) ng/mL 04/16/25 Range/Units 20:18 AST (17-59) U/L Troponin I <0.012 (0.000-0.034) ng/mL Coagulation 04/16/25 Range/Units 13:38 PT 10.5 (10.0-12.5) sec APTT 24.0 (22.0-30.0) sec CBC 04/16/25 Range/Units 13:38 WBC 9.27 (4.50-10.00) 10*3/uL RBC 4.47 (4.40-5.60) 10*6/uL Hgb 14.9 (13.0-17.0) g/dL Hct 43.7 (39.6-50.0) % Plt Count 275 (140-440) 10*3/uL Comprehensive Metabolic Panel 04/16/25 Range/Units 13:38 Sodium 139 (137-145) mmol/L Potassium 4.1 (3.5-5.1) mmol/L Chloride 99 (98-107) mmol/L Carbon Dioxide 25 (22-30) mmol/L BUN 11 (9-20) mg/dL Creatinine 1.09 (0.66-1.25) mg/dL Glucose 128 H (74-99) mg/dL Calcium 10.3 H (8.4-10.2) mg/dL AST 26 (17-59) U/L ALT 32 (4-49) U/L Alkaline Phosphatase 86 (38-126) U/L Total Protein 6.6 (6.3-8.2) g/dL Albumin 4.5 (3.5-5.0) g/dL Current Medications Generic Name Dose Route Start Last Admin Trade Name Freq PRN Reason Stop Dose Admin Acetaminophen/Codeine Phosphate 1 each 04/16/25 17:32 04/16/25 19:46 Acetaminophen-Codeine 300-30mg Tab PO 1 each TID PRN Administration Pain Albuterol Sulfate 2.5 mg 04/16/25 17:32 Albuterol Nebulized 2.5 Mg/3 Ml INHALATION RT-Q6H PRN Shortness Of Breath Allopurinol 200 mg 04/17/25 14:00 Allopurinol 100 Mg Tab PO DAILY@1400 [facility] Aspirin 81 mg 04/17/25 09:00 Aspirin 81 Mg PO DAILY [facility] Atorvastatin Calcium 40 mg 04/16/25 21:00 04/16/25 21:16 Atorvastatin 40 Mg Tab PO 40 mg HS LAN Administration Baclofen 10 mg 04/16/25 21:00 04/16/25 21:15 Baclofen 10 Mg Tab PO 10 mg BID LAN Administration Dextrose/Water 25 ml 04/16/25 17:35 Dextrose 50% Syringe 50 Ml IVP PER PROTOCOL PRN Hypoglycemia Protocol Dextrose/Water 50 ml 04/16/25 17:35 Dextrose 50% Syringe 50 Ml IVP PER PROTOCOL PRN Hypoglycemia Protocol Dicyclomine HCl 20 mg 04/16/25 22:00 04/16/25 21:15 Dicyclomine 20 Mg Tab PO 20 mg TID [facility] Administration Duloxetine HCl 60 mg 04/16/25 21:00 04/16/25 21:14 Duloxetine Hcl 60 Mg Capsule.Dr PO 60 mg HS [facility] Administration Enoxaparin Sodium 40 mg 04/17/25 09:00 Enoxaparin 40 Mg/0.4 Ml Syringe SQ DAILY [facility] Escitalopram Oxalate 10 mg 04/17/25 09:00 Escitalopram 10 Mg Tab PO DAILY [facility] Famotidine 40 mg 04/16/25 21:00 04/16/25 21:16 Famotidine 20 Mg Tab PO 40 mg HS [facility] Administration Hydralazine HCl 50 mg 04/16/25 22:00 04/16/25 22:32 Hydralazine Hcl 50 Mg Tab PO 50 mg TID LAN Administration Insulin Glargine 10 unit 04/17/25 08:30 Insulin Glargine (Lantus) 100 Unit/Ml Syr SQ DAILY@0700 [facility] Insulin Human Lispro 0 unit 04/16/25 21:00 04/16/25 21:45 Insulin Lispro (Humalog) 100 Unit/Ml 10 Ml Vl SQ Not Given ACHS [facility] Protocol Levothyroxine Sodium 88 mcg 04/17/25 06:30 04/17/25 06:53 Levothyroxine 88 Mcg Tab PO 88 mcg DAILY@0630 [facility] Administration Metoprolol Tartrate 75 mg 04/16/25 21:00 04/16/25 21:13 Metoprolol Tartrate 50 Mg Tab PO 75 mg BID LAN Administration Miscellaneous Information 1 each 04/16/25 16:58 Magnesium Replacement Protocol 1 Each Misc MISCELLANE DAILY PRN Per Protocol Protocol Naloxone HCl 0.2 mg 04/16/25 17:52 Naloxone 0.4 Mg/Ml 1 Ml Vial IV Q2M PRN Opioid Reversal Nitroglycerin 0.4 mg 04/16/25 17:31 Nitroglycerin Sl Tabs 0.4 Mg Tab SUBLINGUAL Q5M PRN Chest Pain Nitroglycerin 1 inch 04/16/25 18:00 04/17/25 06:54 Nitroglycerin Oint 1 Inch/Gm Packet TOPICAL 1 inch Q6HR [facility] Administration Non-Formulary Medication 2 gm 04/17/25 16:00 Colestipol Hcl [Colestipol Hcl] PO DAILY@1600 [facility] Pantoprazole Sodium 40 mg 04/16/25 21:00 04/16/25 21:15 Pantoprazole 40 Mg Tablet PO 40 mg BID [facility] Administration Prazosin HCl 2 mg 04/16/25 21:00 04/16/25 21:12 Prazosin 1 Mg Cap PO 2 mg HS LAN Administration Pregabalin 100 mg 04/16/25 18:00 04/16/25 22:32 Pregabalin 100 Mg Cap PO 100 mg TID@1000,1800,2200 [facility] Administration 04/16/25 13:38 04/16/25 13:38
--- NOTE | 2025-04-17 14:00 | P.PN ---
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 Started having symptoms 04/15, described as sharp pain that is worse with deep inspiration. When pain comes, it is constant, no elevating factors. He states that the symptoms are similar to his prior chest pain that was previously evaluated with a stress test. Admits associated shortness of breath, no dizziness, lightheadedness, sweating, fevers, chills. Had Lexiscan done on 01/01/2025:evealed combination of extensive GI activity likely diaphragmatic attenuation artifact resulting in nondiagnostic inferior wall. Unable to exclude either inducible ischemia or old infarct. No reversibility seen among the remaining fried. On arrival afebrile, tachycardic at 117, BP 142/73, SPO2 98% on room air. Lab work revealed normal WBC and hemoglobin count, platelet count, coagulation profile, normal sodium, potassium, creatinine, bicarb, glucose, calcium elevated 10.3, magnesium low 1.5, normal AST, ALT, negative troponin, urinalysis negative for UTI. Venous duplex negative for VTE. X-ray showed sinus tachycardia, no ST elevation, aVL T wave inversion, QTc 383. Patient was admitted under observation for chest pain, cardiology consultation. Cardiology recommends TTE, heart cath on 04/18. Patient will be switched to inpatient due to need to undergo PCI. 04/17 patient seen and examined in the observation unit, he does not have any active complaints, chest pain had resolved, he complains of ongoing chronic back pain, otherwise no new issues. A1c came back at 5.9, triglyceride 229, LDL 32. Pertinent positives and negatives as discussed above, a complete review of systems was performed and all other systems are negative. Vitals Signs Reviewed. General: [nontoxic], [no distress], [appears at stated age] Derm: [warm], [dry] Head: [atraumatic], [normocephalic], [symmetric] Eyes: [EOMI], [no lid lag], [anicteric sclera] Mouth: [no lip lesion], [mucus membranes moist] Cardiovascular: [S1S2 reg], [no murmur] Lungs: [CTA bilateral], [no rhonchi, no rales] , [no accessory muscle use] Abdominal: [soft], [ nontender to palpation], [no guarding], [no appreciable organomegaly] Ext: [no gross muscle atrophy], [no edema], [no contractures] Neuro: [ CN II-XI grossly intact], [no focal neuro deficits] Psych: [Alert], [oriented], [appropriate affect] Assessment and Plan: Atypical chest pain -Possible musculoskeletal component with point tenderness on palpation -Continue aspirin 81 mg daily, Lipitor 40 mg daily -Cardiology consulted, appreciate recommendations -Nitroglycerinointment every 6 hour, sublingual nitro every 5 minutes as neededrt failure 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 3 times daily, hydralazine 50 mg p.o. 3 times daily, Lopressor 50 mg p.o. twice daily, Protonix 40 mg twice daily, famotidine 40 mg nightly, hold Ozempic and metformin, continue with SSI, decreased home Lantus to 10 units due to lower blood glucose level in the morning, Accu-Cheks, hypoglycemia precautions -Monitor BP -Continue use of CPAP at night Back pain, chronic: Follows with orthopedic surgery and pain medicine, supposed to have a back surgery DVT ppx: Lovenox 40 mg SQ daily CODE STATUS: Full Objective - Vital Signs Vital signs: Vital Signs Temp 97.7 F 04/17/25 07:00 Pulse 89 04/17/25 07:00 Resp 19 04/17/25 07:00 BP 133/89 04/17/25 07:00 Pulse Ox 98 04/17/25 08:18 FiO2 21 04/17/25 08:18 Intake & Output 04/16/25 04/17/25 04/17/25 18:59 06:59 18:59 Weight 87.997 kg 87.997 kg - Labs CBC & Chem 7: 04/16/25 13:38 04/16/25 13:38 Labs: Abnormal Lab Results - Last 24 Hours (Table) 04/16/25 04/16/25 04/17/25 Range/Units 13:38 14:47 05:47 Glucose 128 H (74-99) mg/dL Calcium 10.3 H (8.4-10.2) mg/dL Magnesium 1.5 L (1.6-2.3) mg/dL Triglycerides 229.00 H (0.00-149.00) mg/dL VLDL Cholesterol, Calc 45.80 H (5.00-40.00) mg/dL HDL Cholesterol 24.60 L (40.00-60.00) mg/dL Urine Protein Trace H (Negative)
[2025-04-17] MEDS: allopurinoL 100 MG TAB PO SCH (15:00)
[2025-04-17 16:48] LABS: Glucose,Whole Blood 123 mg/dL (70-110)
[2025-04-17] MEDS: NON FORMULARY DRUG (Colestipol Hcl [Colestipol Hcl] 1 GM Tablet) PO SCH (17:42)
[2025-04-17 19:51] LABS: Glucose,Whole Blood 99 mg/dL (70-110)
[2025-04-17] MEDS: METOPROLOL TARTRATE 25 MG TAB PO SCH (21:01)
[2025-04-17] MEDS: SODIUM CHLORIDE 0.9% 1,000 ML in EMPTY BAG 1 BAG IV SCH (23:03)
[2025-04-18 06:08] LABS: Glucose,Whole Blood 115 mg/dL (70-110)
[2025-04-18] MEDS: ASPIRIN 325 MG TAB PO ONE (06:20)
[2025-04-18] MEDS: ATORVASTATIN 80 MG TAB PO ONE (06:20)
[2025-04-18 11:21] LABS: Glucose,Whole Blood 125 mg/dL (70-110)
[2025-04-18] MEDS: diphenhydrAMINE 50 MG/ML 1 ML VIAL IVP ONE (11:48)
[2025-04-18] MEDS: FAMOTIDINE 20 MG/2 ML VIAL IV ONE (11:48)
[2025-04-18] MEDS: methylPREDNISolone SOD SUCCI 125 MG/2 ML VIAL IV ONE (11:48)
[2025-04-18] MEDS: SODIUM CHLORIDE 0.9% 1,000 ML IV ONE (12:31)
[2025-04-18] MEDS: HEPARIN SODIUM,PORCINE 10,000 UNIT in SODIUM CHLORIDE 0.9% 1,000 ML IRRIGATION PRN (12:32)
[2025-04-18] MEDS: HEPARIN SODIUM,PORCINE (1 ML) 2,500 UNIT in SODIUM CHLORIDE 0.9% 250 ML IRRIGATION PRN (12:32)
[2025-04-18] MEDS: MIDAZOLAM 2 MG/2 ML VIAL IVP ONE (12:39)
[2025-04-18] MEDS: LIDOCAINE 1% INJ 10MG/ML (20 ML MDV) SQ ONE (12:42)
[2025-04-18] MEDS: VERAPAMIL SYRINGE (5 MG/10 ML) INTRAARTER ONE (12:43)
[2025-04-18] MEDS: HEPARIN SODIUM 1,000 UN/ML (10ML VL) IVP ONE (12:48)
[2025-04-18] MEDS: IOPAMIDOL-370 100ML BTL INJ ONE (12:55)
[2025-04-18 17:11] LABS: Glucose,Whole Blood 183 mg/dL (70-110)
[2025-04-18 19:29] LABS: Glucose,Whole Blood 223 mg/dL (70-110)
--- NOTE | 2025-04-18 20:23 | CDI ---
Documentation Clarification Form Date: 04/18/2025 07:48:55 PM From: Olga Reynoso RN, CCDS Phone: [phone] Admit Date: 04/16/2025 05:32:00 PM Patient Name: Antonio Fontana Visit Number: [id number] Discharge Date: ATTENTION: The Clinical Documentation Specialists (CDI) and [facility] Coding Staff appreciate your assistance in clarifying documentation. Please respond to the clarification below the line at the bottom and electronically sign. The CDI & [facility] Coding staff will review the response and follow-up if needed. Please note: Queries are made part of the Legal Health Record. If you have any questions, please contact the author of this message via ITS. Doctor. Do Burns Diabetes is documented in the past medical history with ongoing treatment. Additional specificity regarding the diabetes diagnosis is requested. History/Risk Factors: Coronary Artery Disease, Heart Failure, Diabetes Mellitus, Hypertension, Liver Disease, Clinical Indicators: 54-year-old male with known history of Diabetes Mellitus unspecified type. 04/16 VS: 142/73 117, 20 98.9 04/16 POC Glucose: 162, 85, 106 87 04/17 POC Glucose 87, 87, 99 04/18 POC Glucose 115, 125, 223 Treatment: Accu-Checks Hypoglycemic precautions Lantus 10 Unit SQ Daily @ 0700 04/17-04/18 Glucophage 500 MG PO BID W/Meals 04/19- Humalog SQ AC/HS to -04/18 Please clarify the type of diabetes, if known: [ x] Diabetes mellitus Type 2, Controlled with Insulin and oral hypoglycemic medication [ ] Diabetes mellitus Type 2, Uncontrolled with Insulin and oral hypoglycemic medication [ ] Other, please specify [ ] Unable to Determine (Template Last Revised: December 2020) MTDD
--- NOTE | 2025-04-18 23:54 | CC ---
CARDIAC CATHETERIZATION REPORT PROCEDURES PERFORMED: Left heart catheterization and coronary angiography. PERFORMED BY: Dr. Celso Harper. Date of procedure: 04/18/25 ANESTHESIA: Moderate conscious sedation time was 15 minutes. The patient was administered Versed. Oxygen saturation, event and EKG were monitored closely. CLINICAL INFORMATION: Mr. Antonio Fontana is a 54-year-old gentleman with an inappropriate sinus tachycardia, hypertension, hyperlipidemia, and diabetes, came to the hospital with chest pain suggestive of angina, had a negative troponins. EKG revealed nonspecific changes. Because of his risk factors and persistent symptoms, he was advised cardiac catheterization after due discussion regarding risks, benefits, and options. I discussed with the patient, explained to him the rationale. He understood all details and wished to proceed. There was no family available. PROCEDURE NOTE: Under local anesthesia and strict aseptic precautions, a 6-Turkmen introducer was placed in the right radial artery. Using a JL3.5 and JR4 catheters, I performed coronary angiography and the same right catheter was used to check LV pressures. LV-gram was not performed. The sheath was then taken out and TR band applied as per protocol with saturation the fingers of the right hand of 94%. The patient tolerated the procedure well. There were no complications. CARDIAC CATHETERIZATION FINDINGS: The left ventricular end-diastolic pressure was 7 mmHg without any gradient across aortic valve. CORONARY ANGIOGRAPHY FINDINGS: Right coronary artery: Technically dominant vessel, gives off a conus branch which almost comes off like a separate origin, but appears to be very proximally. Conus has minor irregularities. RCA has a dominant vessel. No significant disease distally bifurcates into PDA and PLV, both of which are fair caliber. PLV appears to be larger. No significant disease. Left main coronary: This is a short patent vessel. No significant disease, immediately bifurcates into LAD and circumflex. Left anterior descending coronary artery: Good caliber vessel gives off 2 diagonal branches several small septal branches runs all the way to the apex, supplies sizable amount of myocardium has minor irregularities, no significant disease. Distal half of the vessel has a natural tapering throughout, but no critical stenosis. Left posterior circumflex coronary artery nondominant vessel gives off 2 high obtuse marginal branches, has minor irregularities, no significant disease. FINAL IMPRESSION: This patient has a right-dominant system. Normal filling pressures. No gradient. He has minor irregularities. No significant obstructive CAD. RECOMMENDATIONS: Continued medical therapy with risk factor modification. Findings reviewed with the patient and I spoke to his sister, Cayla by telephone. The patient can be discharged later on today or tomorrow depends on the decision of the admitting physician. HODA / DANIEL: [id number] / MTDD
[2025-04-19 06:03] LABS: Glucose,Whole Blood 141 mg/dL (70-110)
[2025-04-19 07:45] VITALS: BP 124/84; PULSE 90; RESP 18; TEMP 97.6
--- NOTE | 2025-04-19 07:54 | P.DS ---
Providers Date of admission: 04/16/25 17:32 Attending physician: Do Burns MD Consults: 04/16/25 17:31 Consult Physician Urgent Consulting Provider: Leonardo Cuadra Consult Reason/Comments: cp Do you want consulting provider notified?: Yes Primary care physician: Tristin Phillips Hospital Course: Discharge Diagnosis: Atypical chest pain, ACS ruled out History of CVA/TIA no residual GERD HTN HLD History of CKD, now GFR 80s SUSAN on CPAP Fibromyalgia Hypothyroidism GERD Depression Hospital Course: Patient is a 54-year-old male with asthma, CAD, heart failure, CVA/TIA (no residuals), diabetes, GERD, hyperlipidemia, hypertension, CKD, sleep apnea (uses CPAP), fibromyalgia, hypothyroidism, anxiety, depression here for evaluation of chest pain. Started having symptoms 04/15, described as sharp pain that is worse with deep inspiration. When pain comes, it is constant, no elevating factors. He states that the symptoms are similar to his prior chest pain that was previously evaluated with a stress test. Admits associated shortness of breath, no dizziness, lightheadedness, sweating, fevers, chills. Had Lexiscan done on 01/01/2025:evealed combination of extensive GI activity likely diaphragmatic attenuation artifact resulting in nondiagnostic inferior wall. Unable to exclude either inducible ischemia or old infarct. No reversibility seen among the remaining fried. On arrival afebrile, tachycardic at 117, BP 142/73, SPO2 98% on room air. Lab work revealed normal WBC and hemoglobin count, platelet count, coagulation profile, normal sodium, potassium, creatinine, bicarb, glucose, calcium elevated 10.3, magnesium low 1.5, normal AST, ALT, negative troponin, urinalysis negative for UTI. Venous duplex negative for VTE. X-ray showed sinus tachycardia, no ST elevation, aVL T wave inversion, QTc 383. Patient was admitted under observation for chest pain, cardiology consultation. Cardiology recommends TTE, heart cath on 04/18. Patient will be switched to inpatient due to need to undergo PCI.A1c came back at 5.9, triglyceride 229, LDL 32. Patient was taken to [facility] on [facility], no significant obstructive CAD noted, cardiology cleared patient for discharge. Seen and examined on 04/19, patient does not have any complaints, he will be discharged on home medications with follow-up with his primary care physician, he was advised to watch his blood sugar levels as he required less Lantus compared to his home dose, he can take 10 units of Lantus nightly for the next couple nights and adjust doses based on PCP recommendations. Patient seen and examined at bedside. Vital signs reviewed and stable. General: Nontoxic, no distress, appears at stated age Derm: Warm, dry Head: Atraumatic, normocephalic, symmetric Eyes: EOMI, no lid lag, anicteric sclera Mouth: No lip lesion, mucus membranes moist Cardiovascular: S1S2 reg, no murmur Lungs: CTA bilateral, no rhonchi, no rales, no accessory muscle use Abdominal: Soft, nontender to palpation, no guarding, no appreciable organomegaly Ext: No gross muscle atrophy, no edema, no contractures Neuro: CN II-XI grossly intact, no focal neuro deficits Psych: Alert, oriented, appropriate affect A total of 40 minutes of time were spent preparing this complex discharge summary. Patient was discharged on. 04/19 Plan - Discharge Summary Discharge Rx Participant: Yes New Discharge Prescriptions: New Nitroglycerin Sl Tabs [Nitrostat] 0.4 mg SUBLINGUAL Q5M PRN #30 tab PRN Reason: Chest Pain Continue DULoxetine HCL [Cymbalta] 60 mg PO HS Levothyroxine Sodium [Synthroid] 88 mcg PO DAILY Dicyclomine HCl 20 mg PO TID allopurinoL [Zyloprim] 200 mg PO DAILY@1400 Prazosin [Minipress] 2 mg PO HS hydrALAZINE HCL [Apresoline] 50 mg PO TID Colestipol HCl 2 gm PO DAILY@1600 Albuterol Sulfate [Albuterol Sulfate Hfa] 2 puff INHALATION RT-Q6H PRN PRN Reason: Shortness Of Breath Semaglutide [Ozempic] 2 mg SQ WE Atorvastatin [Lipitor] 40 mg PO HS Metoprolol Tartrate [Lopressor] 75 mg PO BID Pantoprazole [Protonix] 40 mg PO BID Famotidine 40 mg PO HS metFORMIN HCL ER [Glucophage XR] 500 mg PO BID Insulin Glargine,Hum.rec.anlog [Lantus Solostar Pen] 22 units SQ DAILY Aspirin 81 mg PO DAILY #90 tab Escitalopram [Lexapro] 10 mg PO DAILY Acetaminophen-Codeine 300-30mg [Tylenol w/codeine #3] 1 tab PO TID PRN 30 Days #90 tab PRN Reason: Pain Baclofen [Lioresal] 10 mg PO BID 30 Days #60 tab Pregabalin [Lyrica] 100 mg PO TID@1000,1800,2200 Discharge Medication List DULoxetine HCL [Cymbalta] 60 mg PO HS 12/31/14 [History] Levothyroxine Sodium [Synthroid] 88 mcg PO DAILY 11/17/18 [History] Dicyclomine HCl 20 mg PO TID 01/06/21 [History] Metoprolol Tartrate [Lopressor] 75 mg PO BID 02/04/21 [History] allopurinoL [Zyloprim] 200 mg PO DAILY@1400 06/02/21 [History] Pantoprazole [Protonix] 40 mg PO BID 01/21/23 [History] Famotidine 40 mg PO HS 02/21/24 [History] Prazosin [Minipress] 2 mg PO HS 02/21/24 [History] metFORMIN HCL ER [Glucophage XR] 500 mg PO BID 02/21/24 [History] Albuterol Sulfate [Albuterol Sulfate Hfa] 2 puff INHALATION RT-Q6H PRN 12/30/24 [History] Colestipol HCl 2 gm PO DAILY@1600 12/30/24 [History] Insulin Glargine,Hum.rec.anlog [Lantus Solostar Pen] 22 units SQ DAILY 12/30/24 [History] Semaglutide [Ozempic] 2 mg SQ WE 12/30/24 [History] hydrALAZINE HCL [Apresoline] 50 mg PO TID 12/30/24 [History] Aspirin 81 mg PO DAILY #90 tab 01/02/25 [Rx] Escitalopram [Lexapro] 10 mg PO DAILY 01/30/25 [History] Acetaminophen-Codeine 300-30mg [Tylenol w/codeine #3] 1 tab PO TID PRN 30 Days #90 tab 04/09/25 [Rx] Baclofen [Lioresal] 10 mg PO BID 30 Days #60 tab 04/09/25 [Rx] Atorvastatin [Lipitor] 40 mg PO HS 04/16/25 [History] Pregabalin [Lyrica] 100 mg PO TID@1000,1800,2200 04/16/25 [History] Nitroglycerin Sl Tabs [Nitrostat] 0.4 mg SUBLINGUAL Q5M PRN #30 tab 04/19/25 [Rx] Follow up Appointment(s)/Referral(s): Gabby Harper MD [STAFF PHYSICIAN] - 04/23/25 1:15 pm Tristin Phillips DO [Primary Care Provider] - 1-2 days Activity/Diet/Wound Care/Special Instructions: Please, follow-up with your primary care physician. Check your blood pressure daily, check your blood sugar 4 times a day, keep a log of the readings to discuss with your primary care physician. Please, note that we have been down on your Lantus while in the hospital, you can take decreased doses for example 10 units of Lantus nightly for the next couple days and closely monitor your blood sugars, please, make sure you discuss your numbers with your primary care physician. Discharge Disposition: HOME SELF-CARE
[2025-04-19] MEDS: ASPIRIN 81 MG PO SCH (09:35)
[2025-04-19] MEDS: metFORMIN 500 MG TAB PO SCH (09:44)
--- NOTE | 2025-04-19 10:45 | P.PN ---
Subjective HISTORY OF PRESENT ILLNESS: This is a 54-year-old male with a past medical history significant for hypertension, hyperlipidemia, diabetes, and sinus tachycardia. Patient follows in the office with Dr. Harper. We have been asked to see the patient in consultation for chest pain. Patient examined at the bedside. Patient states he started having chest pain on Wednesday. 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 He states it was a pressure type sensation. He reports he was also short of breath. He went to [facility] to check his blood pressure and noted it was high. He also reports his blood sugars were high. He messaged his PCP and was recommended to come to the ER for further evaluation. He was given a nitro patch which did help his chest pain. He denies any chest pain or SOB at the time of examination. Vital signs are stable. DIAGNOSTICS: - EKG reveals sinus tachycardia with no signs of acute ischemia. - Chest xray negative for acute process - Lower extremity Doppler: Negative for DVT of the right leg - Laboratory data: WBC 9.27. Hemoglobin 14.9. Platelet count 275. D-dimer 0.21. Sodium 139. Potassium 4.1. BUN 11. Creatinine 1.09. Troponin negative x 3 - Current home cardiac medications include atorvastatin 40 mg at night, hydralazine 50 mg 3 times daily, metoprolol tartrate 75 mg twice a day, aspirin 81 mg daily - Most recent echocardiogram obtained in November 2022 revealing ejection fraction 55%, mild MR, mild TR - Patient underwent Lexiscan stress test in December 2024 revealing commendation of extensive GI activity and likely diaphragmatic attenuation artifact resulting in nondiagnostic inferior wall. Unable to exclude either inducible ischemia or old infarct here. No reversibility seen along the remaining fried. 04/19/2025 Patient is status post cardiac catheterization yesterday with Dr. Leroy valdivia minor irregularities and no significant obstructive CAD. Patient examined this morning at bedside. Patient without complaints of chest pain or pressure. He denies shortness of breath. Right radial cath site with pulse present. Vital signs are stable. 2D echo remains pending. PHYSICAL EXAM: VITAL SIGNS: Reviewed. GENERAL: Well-developed in no acute distress. HEENT: Head is normocephalic. Pupils are equal, round. Sclerae anicteric. Mucous membranes of the mouth are moist. Neck supple. No JVD or thyromegaly LUNGS: Respirations even and unlabored. Lungs essentially clear to auscultation bilaterally. HEART: Regular rate and rhythm. S1 and S2 heard. ABDOMEN: Soft. Nondistended. Nontender. EXTREMITIES: Normal range of motion. No clubbing or cyanosis. Peripheral pulses intact. No lower extremity edema NEUROLOGIC: Awake and alert. Oriented x 3. ASSESSMENT: Chest pain, troponin negative x 3, improved with nitro, status post cardiac catheterization revealing no significant CAD Hypertension Hyperlipidemia Diabetes History of sinus tachycardia Obesity: BMI 32.3 PLAN: 2D echo ordered. Await results. Continue current cardiac medications Patient is stable for discharge home today from a cardiac standpoint Nurse practitioner note has been reviewed by physician. Signing provider agrees with the documented findings, assessment, and plan of care documented by [facility] as a scribe. Objective - Vital Signs Vital signs: Vital Signs Temp 97.6 F 04/19/25 07:17 Pulse 90 04/19/25 09:35 Resp 18 04/19/25 09:35 BP 124/84 04/19/25 07:17 Pulse Ox 97 04/19/25 07:17 FiO2 21 04/17/25 08:18 Intake & Output 04/18/25 04/19/25 04/19/25 18:59 06:59 18:59 Intake Total 300 Output Total 400 Balance -100 Intake: IV 100 Oral 200 Output: Urine 400 Other: Voiding Method Urinal Toilet # Voids 1 # Bowel Movements 0 - Labs CBC & Chem 7: 04/16/25 13:38 04/16/25 13:38 Labs: Abnormal Lab Results - Last 24 Hours (Table) 04/18/25 04/18/25 04/18/25 Range/Units 11:20 17:09 19:28 POC Glucose (mg/dL) 125 H 183 H 223 H (70-110) mg/dL 04/19/25 Range/Units 06:01 POC Glucose (mg/dL) 141 H (70-110) mg/dL
--- NOTE | 2025-04-19 12:12 | CA ---
Transthoracic Echo Report Name: Antonio Fontana Age: 54 Gender: M : 1970 Exam Date: 04/19/2025 08:22 Exam Location: [facility] Ht (in): 65 Wt (lb): 194 Ordering Physician: Amy Vega Attending/Referring Phys: [id number], [facility] [employer] Specialist Kimberly Head, CHARITY Procedure CPT: Indications: Chest Pain Cardiac Hx: Technical Quality: Fair Contrast 1: Total Dose (mL): Contrast 2: Total Dose (mL): MEASUREMENTS (Male / Female) Normal Values 2D ECHO LV Diastolic Diameter PLAX 3.4 cm 4.2 - 5.9 / 3.9 - 5.3 cm LV Systolic Diameter PLAX 2.5 cm IVS Diastolic Thickness 1.2 cm 0.6 - 1.0 / 0.6 - 0.9 cm LVPW Diastolic Thickness 1.1 cm 0.6 - 1.0 / 0.6 - 0.9 cm LV Relative Wall Thickness 0.7 RV Internal Dim ED PLAX 2.2 cm LVOT Diameter 2.0 cm LA Systolic Diameter LX 3.6 cm 3.0 - 4.0 / 2.7 - 3.8 cm LV Diastolic Volume MOD BP 74.6 cm??? 67 - 155 / 56 - 104 cm??? LV Systolic Volume MOD BP 25.9 cm??? - / 19 - 49 cm??? LV Ejection Fraction MOD BP 65.3 % >= 55 % LV Cardiac Index MOD BP 2147.0 cm???/min???m??? LV Diastolic Volume MOD 4C 84.2 cm??? LV Systolic Volume MOD 4C 31.5 cm??? LV Ejection Fraction MOD 4C 62.6 % LV Cardiac Index MOD 4C 2324.0 cm???/min???m??? LV Diastolic Length 4C 8.4 cm LV Systolic Length 4C 6.6 cm LV Diastolic Volume MOD 2C 53.6 cm??? LV Systolic Volume MOD 2C 19.2 cm??? LV Ejection Fraction MOD 2C 64.3 % LV Cardiac Index MOD 2C 1517.7 cm???/min???m??? LV Diastolic Length 2C 6.8 cm LV Systolic Length 2C 5.9 cm LA Volume 49.2 cm??? 18 - 58 / 22 - 52 cm??? LA Volume Index 24.1 cm???/m??? 16 - 28 cm???/m??? M-MODE Aortic Root Diameter MM 2.9 cm LA Systolic Diameter MM 3.1 cm LA Ao Ratio MM 1.1 AV Cusp Separation MM 1.9 cm DOPPLER LVOT Peak Velocity 94.8 cm/s LVOT Peak Gradient 3.6 mmHg LVOT Velocity Time Integral 24.6 cm LVOT Stroke Volume 79.7 cm??? LVOT Stroke Volume Index 40.8 ml/m??? LVOT Cardiac Index 3515.5 cm???/min???m??? FINDINGS Left Ventricle Left ventricular ejection fraction is estimated at 55-60 %. Normal left ventricular systolic function with no obvious regional wall motion abnormalities. Mildly increased left ventricular wall thickness. Left ventricular cavity size normal. Right Ventricle Normal right ventricular size and function. Right ventricular systolic pressure within normal limits. Right Atrium Mild right atrial dilatation. Left Atrium Mild left atrial dilatation. Mitral Valve Structurally normal mitral valve. mild mitral regurgitation. No mitral stenosis. Aortic Valve Trileaflet aortic valve. No aortic valve stenosis or regurgitation. Tricuspid Valve Structurally normal tricuspid valve. Trace tricuspid regurgitation. No tricuspid stenosis. Pulmonic Valve Structurally normal pulmonic valve. No pulmonic regurgitation. No pulmonic regurgitation. Pericardium No pericardial or pleural effusion. Echo free space anterior to the right ventricle likely represents a fat pad. Aorta Normal size aortic root and proximal ascending aorta. CONCLUSIONS 1. Normal left ventricular size and systolic function 2. mild mitral regurgitation Previewed by: Dr. Flash Gonzalez MD (Electronically Signed) Final Date: 19 April 2025 12:11
== END 2025-04-19 12:08 | disposition home or self-care (01) ==
LOC: EC 13:01 → 6NMEDSUR 17:31 → INTOOBSV 17:32 → OBSVTOIN 17:32 → 6NMEDSUR 19:23 → 1SOBS 04-17 05:31 → 6NMEDSUR 04-18 13:01
PROVIDERS: ADMIT Student in an Organized Health Care Education/Training Program; ATTEND Student in an Organized Health Care Education/Training Program
DX: R07.89 Other chest pain (principal); E78.5 Hyperlipidemia, unspecified; I25.10 Atherosclerotic heart disease of native coronary artery without angina pectoris; I13.0 Hypertensive heart and chronic kidney disease with heart failure and stage 1 through stage 4 chronic kidney disease, or unspecified chronic kidney disease; I50.9 Heart failure, unspecified; N18.9 Chronic kidney disease, unspecified; E11.22 Type 2 diabetes mellitus with diabetic chronic kidney disease; J45.909 Unspecified asthma, uncomplicated; E03.9 Hypothyroidism, unspecified; K21.9 Gastro-esophageal reflux disease without esophagitis; G47.33 Obstructive sleep apnea (adult) (pediatric); F41.9 Anxiety disorder, unspecified; F32.A Depression, unspecified; E11.51 Type 2 diabetes mellitus with diabetic peripheral angiopathy without gangrene; M79.7 Fibromyalgia; M54.9 Dorsalgia, unspecified; G89.29 Other chronic pain; E66.9 Obesity, unspecified; Z68.32 Body mass index [BMI] 32.0-32.9, adult; Z85.828 Personal history of other malignant neoplasm of skin; Z86.73 Personal history of transient ischemic attack (TIA), and cerebral infarction without residual deficits; Z87.891 Personal history of nicotine dependence; Z79.4 Long term (current) use of insulin; Z79.82 Long term (current) use of aspirin; Z79.84 Long term (current) use of oral hypoglycemic drugs; Z79.85 Long-term (current) use of injectable non-insulin antidiabetic drugs; Z79.890 Hormone replacement therapy; Z79.899 Other long term (current) drug therapy; Z88.0 Allergy status to penicillin; Z88.1 Allergy status to other antibiotic agents; Z88.2 Allergy status to sulfonamides
CPT/HCPCS: 96372 ×2; 96375; 96365; 96366; 99285; 51798; 36415; 94760; 93005 ×2; 93306; 93458; 85379; 80061; 80053; 82009; 83735 ×2; 84484; 85025; 85610; 85730; 81003; 83036; 71046; 93971; G0378 ×4; C1769; C1894; J2250; J1200; J1644 ×3; J2003; J1650 ×2; J3475; Q9967; J2919; J1308